=== PATIENT | male | born 1965 | race Caucasian/White ===

== ENCOUNTER 2016-06-08 00:22 | Inpatient (IN) | payer BC, MEDICARE ==
[2016-06-08] MEDS ORDERED: Aspirin Low Dose CHEW TAB* 81 MG PO ONE (02:11)
[2016-06-08 02:23] LABS: Hematocrit 41 % (42-52); Hemoglobin 12.4 g/dl (14.0-18.0); Mean Corpuscular HGB Conc 31 g/dl (31-36); Mean Corpuscular Hemoglobin 27 pg (27-31); Mean Corpuscular Volume 89 fL (80-94); Mean Platelet Volume 8 um3 (7.4-10.4); Red Blood Count 4.58 10^6/ul (4.0-5.4); Red Cell Distribution Width 18 % (10.5-15); White Blood Count 13.7 10^3/ul (3.5-10.8)
[2016-06-08 02:25] LABS: Comments Flag Yes
[2016-06-08 02:34] LABS: Albumin 3.8 g/dL (3.2-5.2); BUN/Creatinine Ratio 42.9 (8-20); Calcium 9.2 mg/dL (8.6-10.3); EGFR African American 61.6 (>60); EGFR Non-African American 47.9 (>60); Potassium 4.4 mmol/L (3.5-5.0); Total Bilirubin 0.7 mg/dL (0.2-1.0); Total Protein 6.8 g/dL (6.4-8.9)
[2016-06-08 02:41] LABS: Troponin I 0.04 ng/mL (<0.04)
[2016-06-08] MEDS ORDERED: Furosemide IV* 10 MG/ML VIAL (40 MG) IV SLOW PU ONE (03:15)
[2016-06-08] MEDS ORDERED: Piperac/Tazob 3.375 gm in NS* 3.375 GM/100 ML BAG IVPB ONE (03:15)
[2016-06-08] MEDS ORDERED: Dextrose 50% Syringe 50 ML* 25 GM/50 ML SYRINGE IV PUSH PRN (04:25)
[2016-06-08] MEDS ORDERED: Albuterol 2.5 MG/3 ML NEB.SOL* (0.083%) ONE (05:22)
[2016-06-08] MEDS: Albuterol 2.5 MG/3 ML NEB.SOL* (0.083%) INH PRN ×3 (05:25→18:17)
[2016-06-08] MEDS ORDERED: Heparin VIAL(*) 5000 UNITS/ML VIAL (FIVE THOUSAND) SUBCUT SCH (06:00)
[2016-06-08] MEDS ORDERED: Insulin ISOPH/REG 70/30 (*) 1 UNITS UNIT SUBCUT SCH (07:30)
--- NOTE | 2016-06-08 08:07 | RAD ---
HISTORY: Weakness, shortness of breath COMPARISONS: October 28, 2015 VIEWS:1: Single frontal portable view of the chest at 2:30 AM FINDINGS: LINES AND TUBES: None. CARDIOMEDIASTINAL SILHOUETTE: The cardiac silhouette is enlarged. The cardiomediastinal silhouette is otherwise normal for portable technique. PLEURA: The costophrenic angles are sharp. No pleural abnormalities are noted. LUNG PARENCHYMA: There is a diffuse reticular pattern with indistinct pulmonary vessels. ABDOMEN: The upper abdomen is clear. There is no subphrenic gas. BONES AND SOFT TISSUES: No bone or soft tissue abnormalities are noted. IMPRESSION: CARDIOMEGALY WITH PULMONARY INTERSTITIAL EDEMA
[2016-06-08] MEDS: Insulin LISPRO* 1 UNITS UNIT SUBCUT SCH ×4 (08:12→23:00)
[2016-06-08] MEDS: Mometasone/Formoter 200/5 MDI INH SCH (08:30)
[2016-06-08] MEDS: Tiotropium CAP.INH* CAP.INH/18 MCG (USE ORDER SET !) INH SCH (08:30)
[2016-06-08] MEDS: Furosemide IV* 10 MG/ML 10 ML VIAL (100 MG) IV SCH (08:32)
[2016-06-08] MEDS: Levothyroxine TAB* 100 MCG TAB PO SCH (08:32)
[2016-06-08] MEDS: Diltiazem CD CAP* 180 MG PO SCH (08:32)
[2016-06-08] MEDS: predniSONE TAB* 5 MG PO SCH (08:32)
[2016-06-08] MEDS: Metoprolol Tartrate TAB* 25 MG PO SCH ×2 (08:33→23:06)
[2016-06-08] MEDS: Allopurinol TAB* 300 MG PO SCH (08:33)
[2016-06-08] MEDS: Metolazone TAB* 5 MG PO SCH (08:33)
[2016-06-08] MEDS: Spironolactone TAB* 25 MG PO SCH (08:33)
[2016-06-08] MEDS: Fluticasone NASAL SPRAY 50MCG* 16 gm SPRAY BTL BOTH NARES SCH (08:34)
[2016-06-08] MEDS: CMC:Ketoconazole 2 % CREAM (NF) 30 GM TUBE TOPICAL SCH ×2 (08:35→22:55)
--- NOTE | 2016-06-08 08:37 | HP ---
HISTORY AND PHYSICAL: DATE OF ADMISSION: 06/08/16 CHIEF COMPLAINT: Fluid accumulation. HISTORY OF PRESENT ILLNESS: The patient is a 50-year-old gentleman who says he has noticed over the last few days he has accumulated a lot of fluid in his abdomen. He's actually gotten dizzy from it, and his legs have gotten weak. He denies any increased salt intake and he has been compliant with his medications. Surprisingly, he has no associated shortness of breath. He says he walks; he feels like a taser hits his whole body. His knees start to buckle. He does, however, get some shortness of breath when this happens. He has no chest pain, but he might have some palpitations. He is more constipated , he notes. He has no problems with his diet. In the ED, the patient was found to be what appeared to be somewhat fluid overload and an elevated troponin. PAST MEDICAL HISTORY: Significant for: 1. AFib, on Coumadin. 2. Diabetes mellitus type 2. 3. History of DVT in the right upper extremity and PE. 4. COPD, on oxygen at home. 5. Hypertension. 6. Chronic kidney disease, stage 3. 7. Hyperlipidemia. 8. Peripheral vascular disease. 9. Hypothyroidism. 10. Arthritis. 11. Obstructive sleep apnea, on CPAP. 12. Gout. PAST SURGICAL HISTORY: None. CURRENT MEDICATIONS: As follows: 1. Albuterol 2.5 mg inhaled q.4 hours as needed. 2. Ketoconazole apply twice daily as needed. 3. Insulin 70/30, 70 units subcu twice daily. 4. Insulin aspartate 5 units subcu t.i.d. 5. Furosemide 80 mg b.i.d. 6. Advair Diskus 500/50 mcg one puff twice daily. 7. Flonase nasal spray two sprays both nares daily. 8. Diltiazem CD 360 mg daily. 9. Allopurinol 600 mg daily. 10. Albuterol sulfate 2 mg inhaled q.4 hours as needed. 11. Spironolactone 50 mg daily. 12. Prednisone 5 mg daily. 13. Metolazone 5 mg daily. 14. Augmentin 875 twice daily. 15. Coumadin 50 mg daily. 16. Spiriva one capsule inhaled daily. 17. Metoprolol tartrate 25 mg twice daily. 18. Synthroid 400 mcg daily. ALLERGIES: He has an allergy/adverse reaction to TIGECYCLINE. FAMILY HISTORY: Reviewed and noncontributory. SOCIAL HISTORY: He quit cigar smoking about 15 years ago. No alcohol or recreational drug use. He is on disability. He is . He has one child. His , Lauren Anderson, is his health care proxy. 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 REVIEW OF SYSTEMS: A 14-point review of systems was completed with the patient. All pertinent positives and negatives are in the history of present illness; otherwise, it is negative. PHYSICAL EXAMINATION GENERAL: A pleasant morbidly obese gentleman, lying in bed, in no acute distress. VITAL SIGNS: Temperature 97.4, heart rate 84 beats per minute, respiratory rate 24 breaths per minute, pulse ox 96% on 3 L, and blood pressure 142/68. HEENT: Normocephalic, atraumatic. Pupils are equal, round, and reactive to light. Moist mucous membranes. NECK: Supple. No JVD, bruits, or palpable thyroid. CHEST: Clear to auscultation, but diminished breath sounds bilaterally, difficult to auscultate with his obesity. CARDIOVASCULAR: S1 and S2 appreciated. ABDOMEN: Positive bowel sounds in all 4 quadrants. Soft, nontender, and nondistended. Morbidly obese. EXTREMITIES: No cyanosis or clubbing. He has got bilateral edema with erythema throughout. He has got significant onychomycosis on his feet. NEUROLOGIC: Alert and oriented x3. Moves all extremities. SKIN: Other than the erythema, he also has an indurated area of skin around the right breast area which apparently is chronic for the last 6 years. DIAGNOSTIC DATA/LAB DATA: White count 13.7, hemoglobin 12.4, hematocrit 41, and platelets 250. Sodium 135, potassium 4.4, chloride 99, CO2 43, BUN 66, creatinine 1.54, and glucose 76. Troponin 0.04. BNP 156. Chest x-ray looks like cardiomegaly with bilateral peripheral vascular congestion. ASSESSMENT AND PLAN: 1. Fluid overload: He may have fluid in his lungs as well. I will get transthoracic echo. I will diurese him with 80 mg IV b.i.d. of Lasix. Monitor strict I's and O's and daily weights. At this point, it is unclear why he started to put on extra fluid, but hopefully this will resolve soon. 2. Elevated troponin, likely from the congestive heart failure: We will cycle troponins on telemetry. 3. Morbid obesity: I encouraged the patient to lose weight. 4. Atrial fibrillation: Continue Coumadin. Check INR. 5. Chronic obstructive pulmonary disease: Continue Spiriva, albuterol, and Advair. 6. Hypothyroidism: Stable. Continue Synthroid at significant dose. 7. Diabetes mellitus: Place on fingerstick sliding scale, continue 70/30 insulin. 8. FEN: Consistent carb diet. 9. DVT prophylaxis: He is on Coumadin. 10. Code status: The patient is a full code. TIME SPENT: Over 70 minutes were spent on this H and P, more than 45 minutes of which were spent in direct [id number] contact with the patient, evaluation , physical exam, counseling, and coordination of care. CC: Lencho Plasencia MD * [id number]/CPS #: [id number] MTDD
[2016-06-08] MEDS: Insulin ISOPH/REG 70/30 (*) 1 UNITS UNIT SUBCUT SCH ×2 (08:48→18:06)
[2016-06-08] MEDS ORDERED: Amoxicillin/Clavulanate TAB* 875 MG PO SCH (09:00)
[2016-06-08] MEDS ORDERED: Spiriva Inhaler DEVICE* 1 EACH DEVICE INH ONE (09:00)
--- NOTE | 2016-06-08 14:45 | RAD ---
Indication: Large chronic RIGHT chest/thoracic wall mass for 6 years. Comparison: July 12, 2011 CT. Technique: Noncontrast CT thorax. Multiplanar reformation. Report: Morbid obesity significantly limits image quality. Mild dependent subsegmental atelectasis. Negative for pleural effusions. Negative for thoracic lymphadenopathy. Cardiomegaly. Coronary artery calcifications. Negative for pericardial effusion. Normal diameter thoracic aorta. Limited images through the upper abdomen are unremarkable. RIGHT chest wall and axilla dermal thickening and subcutaneous edema. Subjacent moderately well-circumscribed fat density lesion measuring up to 10 cm AP by 20 cm transverse by 15 cm cephalocaudal is most consistent with a lipoma. Comparison with the contralateral side is limited due to RIGHT arm and LEFT arm down positioning. Upper normal 1 cm short axis RIGHT axillary level lymph node noted. Advanced degenerative arthropathy of the LEFT glenohumeral joint noted. Lumbar sacral spine degenerative spondylosis and facet joint osteoarthritis. No suspicious focal osseous lesions. IMPRESSION: While detail is limited due to morbid obesity the constellation of findings at the RIGHT axilla is most suspicious for a large lipoma and overlying nonspecific skin thickening and subcutaneous edema. Due to magnitude of obesity and difference in positioning comparison with the 2012 exam is limited. Correlate for potential cellulitis. Interval growth or development of pain associated with the lump would raise concern for potential malignant transformation in which case tissue sampling would be indicated to assess for malignancy.
[2016-06-08] MEDS ORDERED: Perflutren Lipid Microsphere* 1.1 MG/ML VIAL IV ONE (15:00)
--- NOTE | 2016-06-08 16:45 | PN ---
Subjective Date of Service: 06/08/16 Interval History: pt feels his breathing is better. C/o constipation Objective Active Medications: Albuterol (Ventolin 2.5 Mg/3 Ml Neb.Christy*) 2.5 mg INH Q4H PRN PRN Reason: SHORTNESS OF BREATH Last Admin: 06/08/16 11:22 Dose: 2.5 mg Allopurinol (Zyloprim Tab*) 600 mg PO DAILY [facility] Last Admin: 06/08/16 08:33 Dose: 600 mg Amoxicillin/Clavulanate Potassium (Augmentin Tab*) 875 mg PO BID [facility] Last Admin: 06/08/16 08:32 Dose: 875 mg Dextrose (D50w Syringe 50 Ml*) 12.5 gm IV PUSH .FOR FS < 60 - SS PRN PRN Reason: FS < 60 Diltiazem HCl (Cardizem Cd Cap*) 360 mg PO DAILY [facility] Last Admin: 06/08/16 08:32 Dose: 360 mg Fluticasone Propionate (Flonase Nasal [place] 50mcg*) 2 spray BOTH NARES DAILY [facility] Last Admin: 06/08/16 08:34 Dose: Not Given Furosemide (Lasix Iv*) 80 mg IV BID [facility] Last Admin: 06/08/16 08:32 Dose: 80 mg Insulin Human Isoph/Insulin Regular (Humulin 70/30 (*)) 50 units SUBCUT BID AC [facility] Last Admin: 06/08/16 08:48 Dose: 50 units Insulin Human Lispro (Humalog*) 0 units SUBCUT ACHS [facility] PRN Reason: Protocol Last Admin: 06/08/16 12:05 Dose: 3 units Ketoconazole (Nizoral 2% Cream (Nf)) 1 applic TOPICAL BID [facility] PRN Reason: Protocol Last Admin: 06/08/16 08:35 Dose: Not Given Levothyroxine Sodium (Synthroid Tab*) 400 mcg PO DAILY@0600 [facility] Last Admin: 06/08/16 08:32 Dose: 400 mcg Metolazone (Zaroxolyn Tab*) 5 mg PO DAILY [facility] Last Admin: 06/08/16 08:33 Dose: 5 mg Metoprolol Tartrate (Lopressor Tab*) 25 mg PO BID [facility] Last Admin: 06/08/16 08:33 Dose: 25 mg Mometasone Furoate/Formoterol Fumar (Dulera 200/5 Mdi*) 2 puff INH BID [facility] Last Admin: 06/08/16 08:30 Dose: Not Given Prednisone (Deltasone Tab*) 5 mg PO DAILY [facility] Last Admin: 06/08/16 08:32 Dose: 5 mg Spironolactone (Aldactone Tab*) 50 mg PO DAILY [facility] Last Admin: 06/08/16 08:33 Dose: 50 mg Tiotropium [place] (Spiriva Cap.Inh*) 1 cap INH DAILY [facility] Last Admin: 06/08/16 08:30 Dose: Not Given Warfarin Sodium (Coumadin Tab(*)) 15 mg PO Ankit@1700 [facility] PRN Reason: Protocol Vital Signs 06/08/16 06/08/16 06/08/16 05:26 06:38 08:01 Temperature 98.1 F 98.5 F Pulse Rate 86 92 94 Respiratory 20 20 16 Rate Blood Pressure 186/71 152/52 (mmHg) O2 Sat by Pulse 98 94 91 Oximetry 06/08/16 06/08/16 06/08/16 08:41 11:28 11:42 Temperature 99.1 F Pulse Rate 74 86 85 Respiratory 18 22 20 Rate Blood Pressure 138/92 (mmHg) O2 Sat by Pulse 95 92 94 Oximetry 06/08/16 06/08/16 12:21 15:00 Temperature 98.6 F Pulse Rate 83 Respiratory 16 16 Rate Blood Pressure 130/58 (mmHg) O2 Sat by Pulse 90 Oximetry Oxygen Devices in Use Now: Nasal Cannula - at 4 L Appearance: 50 yo M , morbitly obese Eyes: No Scleral Icterus, PERRLA Ears/Nose/Mouth/Throat: NL Teeth, Lips, Gums Neck: NL Appearance and Movements; NL JVP Respiratory: Symmetrical Chest Expansion and Respiratory Effort, - - large soft R chest wall mass, the size of a soccer ball Cardiovascular: NL Sounds; No Murmurs; No JVD, RRR Abdominal: NL Sounds; No Tenderness; No Distention, - - large, obese Lymphatic: No Cervical Adenopathy Extremities: No Clubbing, Cyanosis, - - chronic venous staisis changes b/l, b/l pedal edema +1 Skin: No Nodules or Sclerosis Neurological: Alert and Oriented x 3, NL Muscle Strength and Tone Result Diagrams: 06/08/16 01:06 06/08/16 01:06 Assess/Plan/Problems-Billing Assessment: 50 yo M with h/o morbid obesity, DVT/PE, COPD on 4-5 L 02 at home presents with weight gain and worsening SOB. - Patient Problems (1) Acute on chronic diastolic (congestive) heart failure Comment: cont Lasix IV and PO Zaroxolyn and Aldactone Daily weights (2) Atrial fibrillation Comment: currently in NSR will d/c telem. 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 Pt stated he has had it x 6 years (5) Cardiomyopathy Comment: LVEF 45-50% on 10/24/15. (6) Sleep apnea Comment: Pt to use his own CPAP machine. (7) Elevated troponin I level Comment: chronically elevated. No need for further work-up at this time. (8) DVT prophylaxis Comment: Coumadin (9) Hypercarbia Code(s): R06.89 - OTHER ABNORMALITIES OF BREATHING Comment: chonic elevation of serum bicarb, suspect chronic C02 retention, consistent with prior (10) COPD (chronic obstructive pulmonary disease) Comment: On 4-5 L 02 at home,not in exacerbation (11) DVT of right axillary vein, chronic Comment: and h/o remote PE cont coumadin, INR therapeutic Status and Disposition: inpatient for CHF, cont IV diuresis
[2016-06-08] MEDS: Warfarin TAB(*) 7.5 MG PO SCH (18:05)
[2016-06-08] MEDS: Acetaminophen TAB* 325 MG PO PRN (23:01)
[2016-06-09] MEDS: Furosemide IV* 10 MG/ML 10 ML VIAL (100 MG) IV SCH ×4 (00:21→22:55)
[2016-06-09] MEDS: Mometasone/Formoter 200/5 MDI INH SCH ×3 (01:06→19:39)
[2016-06-09] MEDS: Acetaminophen TAB* 325 MG PO PRN ×2 (05:54→10:30)
[2016-06-09] MEDS: Levothyroxine TAB* 100 MCG TAB PO SCH (05:54)
[2016-06-09 07:00] LABS: Hematocrit 38 % (42-52); Hemoglobin 11.8 g/dl (14.0-18.0); Mean Corpuscular HGB Conc 31 g/dl (31-36); Mean Corpuscular Hemoglobin 27 pg (27-31); Mean Corpuscular Volume 89 fL (80-94); Mean Platelet Volume 8 um3 (7.4-10.4); Red Blood Count 4.32 10^6/ul (4.0-5.4); Red Cell Distribution Width 18 % (10.5-15); White Blood Count 11.5 10^3/ul (3.5-10.8)
--- NOTE | 2016-06-09 09:32 | ECHO ---
Patient: DAVE LUQUE [facility] Rec#: [id number] : 1965 Date: 06/08/2016 Age: 50y Height: 182 cm / 71.7 in Weight: 217 kg / 478.3 lbs Sex: M BSA: 3.08 Room#: [facility] Admit Date#: 06/08/2016 Type: Inpatient Referring: Elijah Agrawal MD Reading: Stewart Mathias MD Manager Animation: Patrick Osborn RDCS Transthoracic Echocardiogram Indication: CHF BP: 186/71 Rhythm: A-Fib Findings History: MORBID,OBESITY, DM,HTN,chronic A.FIB. Technical Comments: The study is technically difficult. 5cc Definity echocardiographic enhancement agent used for endocardial border definition.. The study is technically limited due to poor apical windows. The study is technically limited due to patient body habitus. The study is technically limited due to the patient's history of COPD. The study is technically limited due to the patient's smoking history. The study was technically limited due to the patient's inability to lay in the left lateral decubitus position. Left Ventricle: The left ventricular chamber size is mildly dilated. Mild to moderate concentric left ventricular hypertrophy is observed. Left ventricular systolic function is at the lower limits of normal. The estimated ejection fraction is 50-55%. Visually estimated LVEF is 50 %, except on longer R toR intervals when enhanced contractility is seen. The assessment of diastolic function is non-diagnostic. Left Atrium: The left atrial chamber size is normal. Right Ventricle: The right ventricular cavity size is normal. The right ventricular global systolic function is normal. Right Atrium: The right atrium is mildly dilated. Aortic Valve: The aortic valve is trileaflet. There is no evidence of aortic regurgitation. There is no evidence of aortic stenosis. Mitral Valve: There is posterior mitral annular calcification. The mitral valve leaflets are mildly thickened. There is no evidence of mitral regurgitation. There is no evidence of mitral stenosis. Tricuspid Valve: The tricuspid valve structure is not well visualized. There is trace to mild tricuspid regurgitation. Pulmonic Valve: The pulmonic valve structure is not well visualized. Pericardium: There is no pericardial effusion. Aorta: There is mild dilatation of the ascending aorta. The aortic arch is not well visualized. There is no dilation of the aortic root. Pulmonary Artery: The main pulmonary artery is not well visualized. Venous: The venous system is not well visualized. The inferior vena cava is not visualized. Contrast: Definity was used to optimize study. Image 61 Conclusions The study is technically limited due to poor apical windows. The study is technically limited due to patient body habitus. The study is technically limited due to the patient's history of COPD. The study is technically limited due to the patient's smoking history. The study was technically limited due to the patient's inability to lay in the left lateral decubitus position. Mild to moderate concentric left ventricular hypertrophy is observed. Left ventricular systolic function is at the lower limits of normal (enhanced analysis with definity contrast) The estimated ejection fraction is 50-55%. Visually estimated LVEF is 50 %, except on longer R toR intervals when enhanced contractility is seen. There is posterior mitral annular calcification. The mitral valve leaflets are mildly thickened. No significant valvular pathology as can be best imaged. If more definitive valvular assessment is needed suggest YESENIA. Measurements Name Value Normal Range RVIDd (AP) 2D 2.6 cm (0.9 - 2.6) RVDdMajor (2D) 3.4 cm (2.2 - 4.4) RAd ISD 4CH 6.7 cm (3.4 - 4.9) RA (A4C)W 3.6 cm (2.9 - 4.6) IVSd (2D) 1.6 cm (0.6 - 1) LVPWd (2D) 1.2 cm (0.6 - 1) LVIDd (2D) 6.3 cm (3.6 - 5.4) LVIDs (2D) 4.5 cm - LV FS (2D) 29 % (25 - 45) Aortic Annulus 2.1 cm (1.4 - 2.6) Ao root diameter (2D) 3 cm (2.1 - 3.5) Ascending Ao 4.1 cm (2.1 - 3.4) LA dimension (AP) 2D 4.1 cm (2.3 - 3.8) LAd ISD 4CH 6.5 cm (2.9 - 5.3) LA ISD 4CH W 3.6 cm (2.5 - 4.5) Name Value Normal Range LA ESV SP 4CH (A/L) 60 ml - LA ESV SP 2CH (A/L) 48 ml - LA ESV BP (A/L) 61 ml - LA ESV BP (A/L) index 19.78 ml/m2 - LA ESV SP 4CH (MOD) 53 ml - LA ESV SP 2CH (MOD) 41 ml - Name Value Normal Range MV E-wave Vmax 0.96 m/sec - MV deceleration time 119 msec - MV A-wave Vmax 0.96 m/sec - MV E:A ratio 1.01 ratio - LV septal e' Vmax 0.05 m/sec - LV lateral e' Vmax 0.07 m/sec - Name Value Normal Range LVOT diameter 2.2 cm - LVOT Vmax 1.3 m/sec - Name Value Normal Range PV Vmax 1.1 m/sec -
[2016-06-09] MEDS: Spironolactone TAB* 25 MG PO SCH (09:35)
[2016-06-09] MEDS: Metoprolol Tartrate TAB* 25 MG PO SCH ×2 (09:36→21:21)
[2016-06-09] MEDS: Allopurinol TAB* 300 MG PO SCH (09:36)
[2016-06-09] MEDS: Diltiazem CD CAP* 180 MG PO SCH (09:36)
[2016-06-09] MEDS: predniSONE TAB* 5 MG PO SCH (09:36)
[2016-06-09] MEDS: Fluticasone NASAL SPRAY 50MCG* 16 gm SPRAY BTL BOTH NARES SCH (09:39)
[2016-06-09] MEDS: CMC:Ketoconazole 2 % CREAM (NF) 30 GM TUBE TOPICAL SCH ×2 (09:39→21:01)
[2016-06-09] MEDS: Metolazone TAB* 5 MG PO SCH (09:43)
[2016-06-09] MEDS: Insulin ISOPH/REG 70/30 (*) 1 UNITS UNIT SUBCUT SCH ×2 (09:58→17:00)
[2016-06-09] MEDS: Insulin LISPRO* 1 UNITS UNIT SUBCUT SCH ×4 (12:54→22:52)
[2016-06-09] MEDS: Tiotropium CAP.INH* CAP.INH/18 MCG (USE ORDER SET !) INH SCH (12:54)
--- NOTE | 2016-06-09 12:59 | PN ---
Subjective Date of Service: 06/09/16 Interval History: The [facility] pt reported this admission was incorrect. Pt had his weight checked today the first time since admission and was noted to be 520 lbs. He was 486 lbs in 10/2015 Feels a little better today. Will try to stand up with PT. Wyatt placed at admission , pt requests to cont it since he is unable to urinate lying down. Objective Active Medications: Acetaminophen (Tylenol Tab*) 650 mg PO Q4H PRN PRN Reason: FEVER/PAIN Last Admin: 06/09/16 10:30 Dose: 650 mg Albuterol (Ventolin 2.5 Mg/3 Ml Neb.Christy*) 2.5 mg INH Q4H PRN PRN Reason: SHORTNESS OF BREATH Last Admin: 06/08/16 18:17 Dose: 2.5 mg Allopurinol (Zyloprim Tab*) 600 mg PO DAILY [facility] Last Admin: 06/09/16 09:36 Dose: 600 mg Dextrose (D50w Syringe 50 Ml*) 12.5 gm IV PUSH .FOR FS < 60 - SS PRN PRN Reason: FS < 60 Diltiazem HCl (Cardizem Cd Cap*) 360 mg PO DAILY [facility] Last Admin: 06/09/16 09:36 Dose: 360 mg Fluticasone Propionate (Flonase Nasal [place] 50mcg*) 2 spray BOTH NARES DAILY [facility] Last Admin: 06/09/16 09:39 Dose: Not Given Furosemide (Lasix Iv*) 80 mg IV BID [facility] Last Admin: 06/09/16 09:34 Dose: 80 mg Insulin Human Isoph/Insulin Regular (Humulin 70/30 (*)) 50 units SUBCUT BID AC [facility] Last Admin: 06/09/16 09:58 Dose: 50 units Insulin Human Lispro (Humalog*) 0 units SUBCUT ACHS [facility] PRN Reason: Protocol Last Admin: 06/09/16 12:54 Dose: Not Given Ketoconazole (Nizoral 2% Cream (Nf)) 1 applic TOPICAL BID [facility] PRN Reason: Protocol Last Admin: 06/09/16 09:39 Dose: Not Given Levothyroxine Sodium (Synthroid Tab*) 400 mcg PO DAILY@0600 [facility] Last Admin: 06/09/16 05:54 Dose: 400 mcg Metolazone (Zaroxolyn Tab*) 5 mg PO DAILY [facility] Last Admin: 06/09/16 09:43 Dose: 5 mg Metoprolol Tartrate (Lopressor Tab*) 25 mg PO BID [facility] Last Admin: 06/09/16 09:36 Dose: 25 mg Mometasone Furoate/Formoterol Fumar (Dulera 200/5 Mdi*) 2 puff INH BID [facility] Last Admin: 06/09/16 09:37 Dose: 2 puff Prednisone (Deltasone Tab*) 5 mg PO DAILY [facility] Last Admin: 06/09/16 09:36 Dose: 5 mg Spironolactone (Aldactone Tab*) 50 mg PO DAILY [facility] Last Admin: 06/09/16 09:35 Dose: 50 mg Tiotropium [place] (Spiriva Cap.Inh*) 1 cap INH DAILY [facility] Last Admin: 06/09/16 12:54 Dose: Not Given Warfarin Sodium (Coumadin Tab(*)) 15 mg PO SuMoTuThSa@1700 [facility] PRN Reason: Protocol Last Admin: 06/08/16 18:05 Dose: 15 mg Vital Signs 06/08/16 06/08/16 06/08/16 15:00 17:20 17:50 Temperature 98.6 F 98.2 F Pulse Rate 83 85 Respiratory 16 18 20 Rate Blood Pressure 130/58 129/49 (mmHg) O2 Sat by Pulse 90 98 Oximetry 06/08/16 06/08/16 06/08/16 18:19 19:38 20:15 Temperature Pulse Rate 52 86 Respiratory 20 24 18 Rate Blood Pressure 173/73 (mmHg) O2 Sat by Pulse 96 95 Oximetry 06/08/16 06/08/16 06/08/16 20:17 20:24 23:01 Temperature 98.3 F Pulse Rate 86 85 Respiratory 18 Rate Blood Pressure 144/42 171/54 (mmHg) O2 Sat by Pulse 97 98 Oximetry 06/09/16 06/09/16 06/09/16 01:08 03:14 05:58 Temperature 98.0 F Pulse Rate 72 47 64 Respiratory 20 20 Rate Blood Pressure 141/43 (mmHg) O2 Sat by Pulse 98 95 Oximetry 06/09/16 06/09/16 07:17 11:36 Temperature 97.6 F 98.3 F Pulse Rate 75 77 Respiratory 18 18 Rate Blood Pressure 125/48 154/46 (mmHg) O2 Sat by Pulse 95 95 Oximetry Oxygen Devices in Use Now: Nasal Cannula - at 5 L Appearance: 50 yo morbitly obese M in NAD, aAOx3 Eyes: No Scleral Icterus, PERRLA Ears/Nose/Mouth/Throat: NL Teeth, Lips, Gums, Mucous Membranes Moist Neck: NL Appearance and Movements; NL JVP, Trachea Midline Respiratory: Symmetrical Chest Expansion and Respiratory Effort, Clear to Palpation, - - large R chest wall mass-chronic lipoma Cardiovascular: NL Sounds; No Murmurs; No JVD, RRR Abdominal: NL Sounds; No Tenderness; No Distention, - - umbilical hernia at 10 cm in diam, nontender Lymphatic: No Cervical Adenopathy Extremities: No Clubbing, Cyanosis, - - +1 pedal edema Skin: No Nodules or Sclerosis, - - venous stasis changes distal b/l LE's Neurological: Alert and Oriented x 3, NL Muscle Strength and Tone Result Diagrams: 06/09/16 06:52 06/08/16 01:06 Microbiology and Other Data: Microbiology 06/08/16 16:40 Nasal Screen MRSA (PCR)(JEAN CARLOS) - Final Nasal Mrsa Positive Assess/Plan/Problems-Billing Assessment: 50 yo M with h/o morbid obesity, DVT/PE, COPD on 4-5 L 02 at home presents with weight gain and worsening SOB. 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 (6) Sleep apnea Comment: Pt to use his own CPAP machine. (7) Elevated troponin I level Comment: chronically elevated. No need for further work-up at this time. (8) DVT prophylaxis Comment: Coumadin (9) Hypercarbia Comment: chonic elevation of serum bicarb, suspect chronic C02 retention, consistent with prior (10) COPD (chronic obstructive pulmonary disease) Comment: On 4-5 L 02 at home,not in exacerbation (11) DVT of right axillary vein, chronic Comment: and h/o remote PE cont coumadin, INR therapeutic Status and Disposition: inpatient for CHF, cont IV diuresis
[2016-06-09] MEDS: oxyCODONE/Acetamin 5/325 MG* TAB PO PRN (16:40)
[2016-06-09 17:25] LABS: Calcium 9.2 mg/dL (8.6-10.3); EGFR African American 63.9 (>60); EGFR Non-African American 49.7 (>60)
[2016-06-09] MEDS: Warfarin TAB(*) 7.5 MG PO SCH (17:26)
[2016-06-09 17:29] LABS: Potassium 4.7 mmol/L (3.5-5.0)
[2016-06-09] MEDS: Albuterol 2.5 MG/3 ML NEB.SOL* (0.083%) INH PRN (19:36)
[2016-06-10] MEDS: Acetaminophen TAB* 325 MG PO PRN ×2 (00:09→20:13)
[2016-06-10] MEDS: Albuterol 2.5 MG/3 ML NEB.SOL* (0.083%) INH PRN ×4 (01:31→20:27)
[2016-06-10] MEDS: Levothyroxine TAB* 100 MCG TAB PO SCH (05:54)
[2016-06-10 06:19] LABS: BUN/Creatinine Ratio 40.2 (8-20); Calcium 9.1 mg/dL (8.6-10.3); EGFR African American 57.2 (>60); EGFR Non-African American 44.5 (>60); Magnesium 1.9 mg/dL (1.9-2.7); Potassium 3.9 mmol/L (3.5-5.0)
[2016-06-10] MEDS: Insulin ISOPH/REG 70/30 (*) 1 UNITS UNIT SUBCUT SCH ×2 (08:11→17:22)
[2016-06-10] MEDS: Insulin LISPRO* 1 UNITS UNIT SUBCUT SCH ×4 (08:11→21:24)
[2016-06-10] MEDS: Allopurinol TAB* 300 MG PO SCH (08:12)
[2016-06-10] MEDS: Diltiazem CD CAP* 180 MG PO SCH (08:12)
[2016-06-10] MEDS: Furosemide IV* 10 MG/ML 10 ML VIAL (100 MG) IV SCH ×2 (08:12→20:14)
[2016-06-10] MEDS: predniSONE TAB* 5 MG PO SCH (08:12)
[2016-06-10] MEDS: oxyCODONE/Acetamin 5/325 MG* TAB PO PRN (08:13)
[2016-06-10] MEDS: Spironolactone TAB* 25 MG PO SCH (08:13)
[2016-06-10] MEDS: Metolazone TAB* 5 MG PO SCH (08:13)
[2016-06-10] MEDS: Metoprolol Tartrate TAB* 25 MG PO SCH ×2 (08:13→21:24)
[2016-06-10] MEDS: CMC:Ketoconazole 2 % CREAM (NF) 30 GM TUBE TOPICAL SCH ×2 (08:14→21:26)
[2016-06-10] MEDS: Mometasone/Formoter 200/5 MDI INH SCH ×2 (10:23→20:28)
[2016-06-10] MEDS: Tiotropium CAP.INH* CAP.INH/18 MCG (USE ORDER SET !) INH SCH (10:23)
[2016-06-10] MEDS: Fluticasone NASAL SPRAY 50MCG* 16 gm SPRAY BTL BOTH NARES SCH (12:46)
--- NOTE | 2016-06-10 12:56 | PN ---
Subjective Date of Service: 06/10/16 Interval History: Pt feels stronger daily, but still mobility very limited. Objective Active Medications: Acetaminophen (Tylenol Tab*) 650 mg PO Q4H PRN PRN Reason: FEVER/PAIN Last Admin: 06/10/16 00:09 Dose: 650 mg Albuterol (Ventolin 2.5 Mg/3 Ml Neb.Christy*) 2.5 mg INH Q4H PRN PRN Reason: SHORTNESS OF BREATH Last Admin: 06/10/16 10:22 Dose: 2.5 mg Allopurinol (Zyloprim Tab*) 600 mg PO DAILY [facility] Last Admin: 06/10/16 08:12 Dose: 600 mg Dextrose (D50w Syringe 50 Ml*) 12.5 gm IV PUSH .FOR FS < 60 - SS PRN PRN Reason: FS < 60 Diltiazem HCl (Cardizem Cd Cap*) 360 mg PO DAILY [facility] Last Admin: 06/10/16 08:12 Dose: 360 mg Fluticasone Propionate (Flonase Nasal [place] 50mcg*) 2 spray BOTH NARES DAILY [facility] Last Admin: 06/10/16 12:46 Dose: 2 spray Furosemide (Lasix Iv*) 100 mg IV BID [facility] Last Admin: 06/10/16 08:12 Dose: 100 mg Insulin Human Isoph/Insulin Regular (Humulin 70/30 (*)) 50 units SUBCUT BID AC [facility] Last Admin: 06/10/16 08:11 Dose: 50 units Insulin Human Lispro (Humalog*) 0 units SUBCUT ACHS [facility] PRN Reason: Protocol Last Admin: 06/10/16 12:47 Dose: 3 units Ketoconazole (Nizoral 2% Cream (Nf)) 1 applic TOPICAL BID [facility] PRN Reason: Protocol Last Admin: 06/10/16 08:14 Dose: Not Given Levothyroxine Sodium (Synthroid Tab*) 400 mcg PO DAILY@0600 [facility] Last Admin: 06/10/16 05:54 Dose: 400 mcg Metolazone (Zaroxolyn Tab*) 5 mg PO DAILY [facility] Last Admin: 06/10/16 08:13 Dose: 5 mg Metoprolol Tartrate (Lopressor Tab*) 25 mg PO BID [facility] Last Admin: 06/10/16 08:13 Dose: 25 mg Mometasone Furoate/Formoterol Fumar (Dulera 200/5 Mdi*) 2 puff INH BID [facility] Last Admin: 06/10/16 10:23 Dose: 2 puff Prednisone (Deltasone Tab*) 5 mg PO DAILY [facility] Last Admin: 06/10/16 08:12 Dose: 5 mg Spironolactone (Aldactone Tab*) 50 mg PO DAILY [facility] Last Admin: 06/10/16 08:13 Dose: 50 mg Tiotropium [place] (Spiriva Cap.Inh*) 1 cap INH DAILY [facility] Last Admin: 06/10/16 10:23 Dose: 1 cap Warfarin Sodium (Coumadin Tab(*)) 15 mg PO Ankit@1700 [facility] PRN Reason: Protocol Last Admin: 06/09/16 17:26 Dose: 15 mg Vital Signs 06/09/16 06/09/16 06/09/16 15:49 16:40 18:54 Temperature 98.2 F 98.3 F Pulse Rate 71 68 Respiratory 20 16 16 Rate Blood Pressure 152/42 127/83 (mmHg) O2 Sat by Pulse 93 94 Oximetry 06/09/16 06/09/16 06/09/16 19:40 20:20 20:22 Temperature 98.3 F Pulse Rate 74 79 Respiratory 20 20 20 Rate Blood Pressure 155/71 (mmHg) O2 Sat by Pulse 96 96 Oximetry 06/09/16 06/09/16 06/09/16 21:08 22:15 23:00 Temperature 98.4 F 98.7 F Pulse Rate 41 72 Respiratory 20 20 16 Rate Blood Pressure 153/83 151/50 (mmHg) O2 Sat by Pulse 95 93 Oximetry 06/10/16 06/10/16 06/10/16 00:52 07:59 08:13 Temperature Pulse Rate 61 Respiratory 20 18 20 Rate Blood Pressure (mmHg) O2 Sat by Pulse 91 Oximetry 06/10/16 06/10/16 10:13 10:24 Temperature Pulse Rate 64 Respiratory 18 18 Rate Blood Pressure (mmHg) O2 Sat by Pulse 95 Oximetry Oxygen Devices in Use Now: Nasal Cannula - at 5 L Appearance: 50 yo morbitly obese M in nAd, aAOx3 Eyes: No Scleral Icterus, PERRLA Ears/Nose/Mouth/Throat: NL Teeth, Lips, Gums, Mucous Membranes Moist Neck: NL Appearance and Movements; NL JVP, Trachea Midline Respiratory: Symmetrical Chest Expansion and Respiratory Effort, Clear to Auscultation, - - large R chest lipoma in place Cardiovascular: NL Sounds; No Murmurs; No JVD, RRR Abdominal: NL Sounds; No Tenderness; No Distention, - - large, umbilical hernia present-nontender Lymphatic: No Cervical Adenopathy Extremities: No Clubbing, Cyanosis, - - + 1 pitting edema with venous staisis changes Skin: No Nodules or Sclerosis, - - scattered psoriasis plaques Neurological: Alert and Oriented x 3, NL Muscle Strength and Tone Result Diagrams: 06/09/16 06:52 06/10/16 05:04 Microbiology and Other Data: Microbiology 06/08/16 16:40 Nasal Screen MRSA (PCR)(JEAN CARLOS) - Final Nasal Mrsa Positive Assess/Plan/Problems-Billing Assessment: 50 yo M with h/o morbid obesity, DVT/PE, COPD on 4-5 L 02 at home presents with weight gain and worsening SOB. 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 (6) Sleep apnea Comment: Pt to use his own CPAP machine. (7) Elevated troponin I level Comment: chronically elevated. No need for further work-up at this time. (8) DVT prophylaxis Comment: Coumadin (9) Hypercarbia Comment: chonic elevation of serum bicarb, suspect chronic C02 retention, consistent with prior (10) COPD (chronic obstructive pulmonary disease) Comment: On 4-5 L 02 at home,not in exacerbation (11) DVT of right axillary vein, chronic Comment: and h/o remote PE cont coumadin, INR therapeutic Status and Disposition: inpatient for CHF, cont IV diuresis, possible d./c in 1-2 days
[2016-06-10] MEDS: Warfarin TAB(*) 7.5 MG PO SCH (17:20)
[2016-06-11] MEDS: Albuterol 2.5 MG/3 ML NEB.SOL* (0.083%) INH PRN ×4 (02:27→21:24)
[2016-06-11] MEDS: Levothyroxine TAB* 100 MCG TAB PO SCH (05:39)
[2016-06-11 06:15] LABS: BUN/Creatinine Ratio 42.2 (8-20); Calcium 9.1 mg/dL (8.6-10.3); EGFR African American 53.8 (>60); EGFR Non-African American 41.9 (>60); Potassium 3.9 mmol/L (3.5-5.0)
[2016-06-11] MEDS: Insulin ISOPH/REG 70/30 (*) 1 UNITS UNIT SUBCUT SCH ×2 (08:06→17:27)
[2016-06-11] MEDS: Insulin LISPRO* 1 UNITS UNIT SUBCUT SCH ×4 (08:06→22:10)
[2016-06-11] MEDS: Furosemide IV* 10 MG/ML 10 ML VIAL (100 MG) IV SCH ×2 (08:06→22:10)
[2016-06-11] MEDS: CMC:Ketoconazole 2 % CREAM (NF) 30 GM TUBE TOPICAL SCH ×2 (08:06→22:11)
[2016-06-11] MEDS: Allopurinol TAB* 300 MG PO SCH (08:07)
[2016-06-11] MEDS: Acetaminophen TAB* 325 MG PO PRN (08:07)
[2016-06-11] MEDS: Fluticasone NASAL SPRAY 50MCG* 16 gm SPRAY BTL BOTH NARES SCH (08:07)
[2016-06-11] MEDS: Spironolactone TAB* 25 MG PO SCH (08:08)
[2016-06-11] MEDS: predniSONE TAB* 5 MG PO SCH (08:08)
[2016-06-11] MEDS: Metoprolol Tartrate TAB* 25 MG PO SCH ×2 (08:08→22:09)
[2016-06-11] MEDS: Diltiazem CD CAP* 180 MG PO SCH (08:09)
[2016-06-11] MEDS: Metolazone TAB* 5 MG PO SCH (08:09)
[2016-06-11] MEDS: Mometasone/Formoter 200/5 MDI INH SCH ×2 (10:09→21:16)
[2016-06-11] MEDS: Tiotropium CAP.INH* CAP.INH/18 MCG (USE ORDER SET !) INH SCH (10:09)
--- NOTE | 2016-06-11 12:07 | PN ---
Subjective Date of Service: 06/11/16 Interval History: Pt feels well , feels his abdomen is getting "smaller". Objective Active Medications: Acetaminophen (Tylenol Tab*) 650 mg PO Q4H PRN PRN Reason: FEVER/PAIN Last Admin: 06/11/16 08:07 Dose: 650 mg Albuterol (Ventolin 2.5 Mg/3 Ml Neb.Christy*) 2.5 mg INH Q4H PRN PRN Reason: SHORTNESS OF BREATH Last Admin: 06/11/16 02:27 Dose: 2.5 mg Allopurinol (Zyloprim Tab*) 600 mg PO DAILY [facility] Last Admin: 06/11/16 08:07 Dose: 600 mg Dextrose (D50w Syringe 50 Ml*) 12.5 gm IV PUSH .FOR FS < 60 - SS PRN PRN Reason: FS < 60 Diltiazem HCl (Cardizem Cd Cap*) 360 mg PO DAILY [facility] Last Admin: 06/11/16 08:09 Dose: 360 mg Fluticasone Propionate (Flonase Nasal [place] 50mcg*) 2 spray BOTH NARES DAILY [facility] Last Admin: 06/11/16 08:07 Dose: 2 spray Furosemide (Lasix Iv*) 100 mg IV BID [facility] Last Admin: 06/11/16 08:06 Dose: 100 mg Insulin Human Isoph/Insulin Regular (Humulin 70/30 (*)) 50 units SUBCUT BID AC [facility] Last Admin: 06/11/16 08:06 Dose: 50 units Insulin Human Lispro (Humalog*) 0 units SUBCUT ACHS [facility] PRN Reason: Protocol Last Admin: 06/11/16 08:06 Dose: 3 units Ketoconazole (Nizoral 2% Cream (Nf)) 1 applic TOPICAL BID [facility] PRN Reason: Protocol Last Admin: 06/11/16 08:06 Dose: 1 applic Levothyroxine Sodium (Synthroid Tab*) 400 mcg PO DAILY@0600 [facility] Last Admin: 06/11/16 05:39 Dose: 400 mcg Metolazone (Zaroxolyn Tab*) 5 mg PO DAILY [facility] Last Admin: 06/11/16 08:09 Dose: 5 mg Metoprolol Tartrate (Lopressor Tab*) 25 mg PO BID [facility] Last Admin: 06/11/16 08:08 Dose: 25 mg Mometasone Furoate/Formoterol Fumar (Dulera 200/5 Mdi*) 2 puff INH BID [facility] Last Admin: 06/11/16 10:09 Dose: Not Given Prednisone (Deltasone Tab*) 5 mg PO DAILY [facility] Last Admin: 06/11/16 08:08 Dose: 5 mg Spironolactone (Aldactone Tab*) 50 mg PO DAILY [facility] Last Admin: 06/11/16 08:08 Dose: 50 mg Tiotropium [place] (Spiriva Cap.Inh*) 1 cap INH DAILY [facility] Last Admin: 06/11/16 10:09 Dose: Not Given Warfarin Sodium (Coumadin Tab(*)) 15 mg PO Ankit@1700 [facility] PRN Reason: Protocol Last Admin: 06/10/16 17:20 Dose: 15 mg Vital Signs 06/10/16 06/10/16 06/10/16 14:44 16:15 20:00 Temperature 98.2 F Pulse Rate 62 105 Respiratory 20 20 18 Rate Blood Pressure 102/87 (mmHg) O2 Sat by Pulse 91 95 Oximetry 06/10/16 06/10/16 06/10/16 20:31 20:33 23:00 Temperature 98 F Pulse Rate 75 73 62 Respiratory 22 16 Rate Blood Pressure 154/62 152/45 (mmHg) O2 Sat by Pulse 95 96 Oximetry 06/11/16 06/11/16 06/11/16 02:28 07:59 08:00 Temperature 97.8 F Pulse Rate 62 72 Respiratory 22 16 16 Rate Blood Pressure 174/82 (mmHg) O2 Sat by Pulse 96 96 Oximetry Oxygen Devices in Use Now: Nasal Cannula - at 5 L Appearance: 50 morbitly obese M in NAD, aAOx3 Eyes: No Scleral Icterus, PERRLA Ears/Nose/Mouth/Throat: NL Teeth, Lips, Gums, Mucous Membranes Moist Neck: NL Appearance and Movements; NL JVP Respiratory: Symmetrical Chest Expansion and Respiratory Effort, Clear to Auscultation, - - R chest lipoma-large nontender Cardiovascular: NL Sounds; No Murmurs; No JVD, RRR Abdominal: NL Sounds; No Tenderness; No Distention, - - small nontender umbilical hernia Lymphatic: No Cervical Adenopathy Extremities: No Clubbing, Cyanosis, - - +1 b/l pedeam edema Skin: - - scattered psoriasis plaques on abd. Venous stasis changes on b/l distal LE's Neurological: Alert and Oriented x 3, NL Muscle Strength and Tone Result Diagrams: 06/09/16 06:52 06/11/16 05:42 Microbiology and Other Data: Microbiology 06/08/16 16:40 Nasal Screen MRSA (PCR)(JEAN CARLOS) - Final Nasal Mrsa Positive Assess/Plan/Problems-Billing Assessment: 50 yo M with h/o morbid obesity, DVT/PE, COPD on 4-5 L 02 at home presents with weight gain and worsening SOB. 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 (6) Sleep apnea Comment: Pt to use his own CPAP machine. (7) Elevated troponin I level Comment: chronically elevated. No need for further work-up at this time. (8) DVT prophylaxis Comment: Coumadin (9) Hypercarbia Comment: chonic elevation of serum bicarb, suspect chronic C02 retention, consistent with prior (10) COPD (chronic obstructive pulmonary disease) Comment: On 4-5 L 02 at home,not in exacerbation (11) DVT of right axillary vein, chronic Comment: and h/o remote PE cont coumadin, INR therapeutic Status and Disposition: inpatient for CHF, cont IV diuresis, possible d/c tomorrow. Pt has a santos in place and requests to leave it in till he is more mobile. May need STR, agrees to [facility].
[2016-06-11] MEDS: Warfarin TAB(*) 7.5 MG PO SCH (17:42)
[2016-06-12] MEDS: Albuterol 2.5 MG/3 ML NEB.SOL* (0.083%) INH PRN ×4 (03:05→21:09)
[2016-06-12] MEDS: Levothyroxine TAB* 100 MCG TAB PO SCH (06:12)
[2016-06-12] MEDS: Insulin LISPRO* 1 UNITS UNIT SUBCUT SCH ×4 (08:58→21:09)
[2016-06-12] MEDS: Furosemide IV* 10 MG/ML 10 ML VIAL (100 MG) IV SCH ×2 (09:15→21:09)
[2016-06-12] MEDS: Diltiazem CD CAP* 180 MG PO SCH (09:15)
[2016-06-12] MEDS: Allopurinol TAB* 300 MG PO SCH (09:15)
[2016-06-12] MEDS: predniSONE TAB* 5 MG PO SCH (09:16)
[2016-06-12] MEDS: Metoprolol Tartrate TAB* 25 MG PO SCH ×2 (09:16→21:09)
[2016-06-12] MEDS: Spironolactone TAB* 25 MG PO SCH (09:16)
[2016-06-12] MEDS: Metolazone TAB* 5 MG PO SCH (09:16)
[2016-06-12] MEDS: Fluticasone NASAL SPRAY 50MCG* 16 gm SPRAY BTL BOTH NARES SCH (09:17)
[2016-06-12] MEDS: Insulin ISOPH/REG 70/30 (*) 1 UNITS UNIT SUBCUT SCH ×2 (09:17→17:11)
[2016-06-12] MEDS: CMC:Ketoconazole 2 % CREAM (NF) 30 GM TUBE TOPICAL SCH ×2 (09:17→21:17)
[2016-06-12] MEDS: Mometasone/Formoter 200/5 MDI INH SCH ×2 (09:22→21:14)
[2016-06-12] MEDS: Tiotropium CAP.INH* CAP.INH/18 MCG (USE ORDER SET !) INH SCH (09:22)
[2016-06-12] MEDS: Acetaminophen TAB* 325 MG PO PRN (15:11)
[2016-06-12] MEDS: oxyCODONE/Acetamin 5/325 MG* TAB PO PRN ×2 (16:20→22:05)
--- NOTE | 2016-06-12 16:41 | PN ---
Subjective Date of Service: 06/12/16 Interval History: Pt feels tired. Was able to sit at the edge of the bed, but no OOB with PT yet. Refuses to have Santos out till ambulating Objective Active Medications: Acetaminophen (Tylenol Tab*) 650 mg PO Q4H PRN PRN Reason: FEVER/PAIN Last Admin: 06/12/16 15:11 Dose: 650 mg Albuterol (Ventolin 2.5 Mg/3 Ml Neb.Christy*) 2.5 mg INH Q4H PRN PRN Reason: SHORTNESS OF BREATH Last Admin: 06/12/16 15:35 Dose: 2.5 mg Allopurinol (Zyloprim Tab*) 600 mg PO DAILY [facility] Last Admin: 06/12/16 09:15 Dose: 600 mg Dextrose (D50w Syringe 50 Ml*) 12.5 gm IV PUSH .FOR FS < 60 - SS PRN PRN Reason: FS < 60 Diltiazem HCl (Cardizem Cd Cap*) 360 mg PO DAILY [facility] Last Admin: 06/12/16 09:15 Dose: 360 mg Fluticasone Propionate (Flonase Nasal [place] 50mcg*) 2 spray BOTH NARES DAILY [facility] Last Admin: 06/12/16 09:17 Dose: 2 spray Furosemide (Lasix Iv*) 100 mg IV BID [facility] Stop: 06/12/16 23:59 Last Admin: 06/12/16 09:15 Dose: 100 mg Furosemide (Lasix Tab*) 100 mg PO 0800,1700 [facility] Insulin Human Isoph/Insulin Regular (Humulin 70/30 (*)) 50 units SUBCUT BID AC [facility] Last Admin: 06/12/16 09:17 Dose: 50 units Insulin Human Lispro (Humalog*) 0 units SUBCUT ACHS [facility] PRN Reason: Protocol Last Admin: 06/12/16 12:30 Dose: 3 units Ketoconazole (Nizoral 2% Cream (Nf)) 1 applic TOPICAL BID [facility] PRN Reason: Protocol Last Admin: 06/12/16 09:17 Dose: 1 applic Levothyroxine Sodium (Synthroid Tab*) 400 mcg PO DAILY@0600 [facility] Last Admin: 06/12/16 06:12 Dose: 400 mcg Metolazone (Zaroxolyn Tab*) 5 mg PO DAILY [facility] Last Admin: 02/06/17 09:16 Dose: 5 mg Metoprolol Tartrate (Lopressor Tab*) 25 mg PO BID [facility] Last Admin: 06/12/16 09:16 Dose: 25 mg Mometasone Furoate/Formoterol Fumar (Dulera 200/5 Mdi*) 2 puff INH BID [facility] Last Admin: 06/12/16 09:22 Dose: 2 puff Oxycodone/Acetaminophen (Percocet 5/325 Tab*) 1 tab PO Q4H PRN PRN Reason: PAIN Last Admin: 06/12/16 16:20 Dose: 1 tab Prednisone (Deltasone Tab*) 5 mg PO DAILY [facility] Last Admin: 06/12/16 09:16 Dose: 5 mg Spironolactone (Aldactone Tab*) 50 mg PO DAILY [facility] Last Admin: 06/12/16 09:16 Dose: 50 mg Tiotropium [place] (Spiriva Cap.Inh*) 1 cap INH DAILY [facility] Last Admin: 06/12/16 09:22 Dose: 1 cap Warfarin Sodium (Coumadin Tab(*)) 15 mg PO [facility]@1700 [facility] PRN Reason: Protocol Last Admin: 06/11/16 17:42 Dose: 15 mg Vital Signs 06/11/16 06/11/16 06/11/16 16:43 20:00 21:25 Temperature 98.0 F Pulse Rate 76 63 Respiratory 20 20 20 Rate Blood Pressure 157/59 (mmHg) O2 Sat by Pulse 93 95 Oximetry 06/11/16 06/12/16 06/12/16 23:00 03:08 07:49 Temperature 97.5 F 97.8 F Pulse Rate 67 63 75 Respiratory 16 20 16 Rate Blood Pressure 140/54 159/72 (mmHg) O2 Sat by Pulse 95 95 97 Oximetry 06/12/16 06/12/16 06/12/16 08:00 09:26 15:38 Temperature Pulse Rate 66 68 Respiratory 20 18 20 Rate Blood Pressure (mmHg) O2 Sat by Pulse 93 93 Oximetry 06/12/16 16:20 Temperature Pulse Rate Respiratory 20 Rate Blood Pressure (mmHg) O2 Sat by Pulse Oximetry Oxygen Devices in Use Now: Nasal Cannula - at 5 L Appearance: 50 yo M in nAd, aAOx3, morbitly obese Eyes: No Scleral Icterus, PERRLA Ears/Nose/Mouth/Throat: NL Teeth, Lips, Gums, Mucous Membranes Moist Neck: NL Appearance and Movements; NL JVP, Trachea Midline Respiratory: Symmetrical Chest Expansion and Respiratory Effort, - - decreased breath sounds b/l. Large R chest wall lipoma Cardiovascular: NL Sounds; No Murmurs; No JVD, RRR Abdominal: NL Sounds; No Tenderness; No Distention, - - umbilical hernia noted, nontender Lymphatic: No Cervical Adenopathy Extremities: No Clubbing, Cyanosis, - - trace pedal edma and evous stasis changes b/l distal LE's Skin: No Nodules or Sclerosis, - - scattered psoriasis plaques Neurological: Alert and Oriented x 3, NL Muscle Strength and Tone Result Diagrams: 06/09/16 06:52 06/11/16 05:42 Microbiology and Other Data: Microbiology 06/08/16 16:40 Nasal Screen MRSA (PCR)(JEAN CARLOS) - Final Nasal Mrsa Positive Assess/Plan/Problems-Billing Assessment: 50 yo M with h/o morbid obesity, DVT/PE, COPD on 4-5 L 02 at home presents with weight gain and worsening SOB. - Patient Problems (1) Acute on chronic diastolic (congestive) heart failure Comment: Lasix IV changed to PO today, ont PO Zaroxolyn and Aldactone Daily weights unreliable due to pt's immobility and problems with getting a correct weight According to I/O's pt is >7 L negative in the past 24H. 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 (6) Sleep apnea Comment: Pt to use his own CPAP machine. (7) Elevated troponin I level Comment: chronically elevated. No need for further work-up at this time. (8) DVT prophylaxis Comment: Coumadin (9) Hypercarbia Comment: chonic elevation of serum bicarb, suspect chronic C02 retention, consistent with prior (10) COPD (chronic obstructive pulmonary disease) Comment: On 4-5 L 02 at home,not in exacerbation (11) DVT of right axillary vein, chronic Comment: and h/o remote PE cont coumadin, INR therapeutic Status and Disposition: inpatient for CHF. Pt has a santos in place and requests to leave it in till he is more mobile, agrees [facility] Med[facility] ready for discharge
[2016-06-12] MEDS: Warfarin TAB(*) 7.5 MG PO SCH (17:11)
[2016-06-12 23:56] LABS: Urine Bacteria 1+ (Absent); Urine Bilirubin Negative (Negative); Urine Glucose Negative (Negative); Urine Nitrite Negative (Negative)
[2016-06-13] MEDS: Levothyroxine TAB* 100 MCG TAB PO SCH (05:58)
[2016-06-13 06:27] LABS: BUN/Creatinine Ratio 52.6 (8-20); Calcium 9.3 mg/dL (8.6-10.3); EGFR African American 61.6 (>60); EGFR Non-African American 47.9 (>60); Potassium 3.9 mmol/L (3.5-5.0)
[2016-06-13 06:32] LABS: Troponin I 0.04 ng/mL (<0.04)
[2016-06-13] MEDS: Insulin LISPRO* 1 UNITS UNIT SUBCUT SCH ×4 (08:01→21:26)
[2016-06-13] MEDS: Insulin ISOPH/REG 70/30 (*) 1 UNITS UNIT SUBCUT SCH ×2 (09:00→17:53)
[2016-06-13] MEDS: Metolazone TAB* 5 MG PO SCH (09:02)
[2016-06-13] MEDS: Metoprolol Tartrate TAB* 25 MG PO SCH ×2 (09:02→21:25)
[2016-06-13] MEDS: predniSONE TAB* 5 MG PO SCH (09:02)
[2016-06-13] MEDS: Diltiazem CD CAP* 180 MG PO SCH (09:03)
[2016-06-13] MEDS: Allopurinol TAB* 300 MG PO SCH (09:03)
[2016-06-13] MEDS: Furosemide TAB* 40 MG PO SCH ×2 (09:04→17:50)
[2016-06-13] MEDS: Spironolactone TAB* 25 MG PO SCH (09:04)
[2016-06-13] MEDS: Fluticasone NASAL SPRAY 50MCG* 16 gm SPRAY BTL BOTH NARES SCH (09:08)
[2016-06-13] MEDS: Mometasone/Formoter 200/5 MDI INH SCH ×2 (09:50→21:27)
[2016-06-13] MEDS: Tiotropium CAP.INH* CAP.INH/18 MCG (USE ORDER SET !) INH SCH (09:51)
--- NOTE | 2016-06-13 10:19 | PN ---
Subjective Date of Service: 06/13/16 Interval History: Pt feels "loopy " today. Noted that the skin on R chest -lipoma is with increased warmth and edema Objective Active Medications: Acetaminophen (Tylenol Tab*) 650 mg PO Q4H PRN PRN Reason: FEVER/PAIN Last Admin: 06/12/16 15:11 Dose: 650 mg Albuterol (Ventolin 2.5 Mg/3 Ml Neb.Crhisty*) 2.5 mg INH Q4H PRN PRN Reason: SHORTNESS OF BREATH Last Admin: 06/12/16 21:09 Dose: 2.5 mg Allopurinol (Zyloprim Tab*) 600 mg PO DAILY [facility] Last Admin: 06/13/16 09:03 Dose: 600 mg Dextrose (D50w Syringe 50 Ml*) 12.5 gm IV PUSH .FOR FS < 60 - SS PRN PRN Reason: FS < 60 Diltiazem HCl (Cardizem Cd Cap*) 360 mg PO DAILY [facility] Last Admin: 06/13/16 09:03 Dose: 360 mg Doxycycline Hyclate (Vibramycin Cap(*)) 100 mg PO BID [facility] Fluticasone Propionate (Flonase Nasal [place] 50mcg*) 2 spray BOTH NARES DAILY [facility] Last Admin: 06/13/16 09:08 Dose: 2 spray Furosemide (Lasix Tab*) 100 mg PO 0800,1700 [facility] Last Admin: 06/13/16 09:04 Dose: 100 mg Insulin Human Isoph/Insulin Regular (Humulin 70/30 (*)) 50 units SUBCUT BID AC [facility] Last Admin: 06/13/16 09:00 Dose: 50 units Insulin Human Lispro (Humalog*) 0 units SUBCUT ACHS [facility] PRN Reason: Protocol Last Admin: 06/13/16 08:01 Dose: Not Given Ketoconazole (Nizoral 2% Cream (Nf)) 1 applic TOPICAL BID [facility] PRN Reason: Protocol Last Admin: 06/12/16 21:17 Dose: 1 applic Levothyroxine Sodium (Synthroid Tab*) 400 mcg PO DAILY@0600 [facility] Last Admin: 06/13/16 05:58 Dose: 400 mcg Metolazone (Zaroxolyn Tab*) 5 mg PO DAILY [facility] Last Admin: 06/13/16 09:02 Dose: 5 mg Metoprolol Tartrate (Lopressor Tab*) 25 mg PO BID [facility] Last Admin: 06/13/16 09:02 Dose: 25 mg Mometasone Furoate/Formoterol Fumar (Dulera 200/5 Mdi*) 2 puff INH BID [facility] Last Admin: 06/13/16 09:50 Dose: 2 puff Oxycodone/Acetaminophen (Percocet 5/325 Tab*) 1 tab PO Q4H PRN PRN Reason: PAIN Last Admin: 06/12/16 22:05 Dose: 1 tab Prednisone (Deltasone Tab*) 5 mg PO DAILY [facility] Last Admin: 06/13/16 09:02 Dose: 5 mg Spironolactone (Aldactone Tab*) 50 mg PO DAILY [facility] Last Admin: 06/13/16 09:04 Dose: 50 mg Tiotropium [place] (Spiriva Cap.Inh*) 1 cap INH DAILY [facility] Last Admin: 06/13/16 09:51 Dose: 1 cap Warfarin Sodium (Coumadin Tab(*)) 15 mg PO SuMoTuThFrSa@1700 [facility] PRN Reason: Protocol Last Admin: 06/12/16 17:11 Dose: 15 mg Vital Signs 06/12/16 06/12/16 06/12/16 15:38 16:20 18:20 Temperature Pulse Rate 68 Respiratory 20 20 20 Rate Blood Pressure (mmHg) O2 Sat by Pulse 93 Oximetry 06/12/16 06/12/16 06/12/16 20:00 21:15 22:05 Temperature Pulse Rate 80 Respiratory 20 20 22 Rate Blood Pressure (mmHg) O2 Sat by Pulse 98 Oximetry 06/12/16 06/13/16 06/13/16 23:00 00:05 07:45 Temperature 98 F 97.7 F Pulse Rate 70 72 Respiratory 20 18 20 Rate Blood Pressure 132/62 153/76 (mmHg) O2 Sat by Pulse 94 95 Oximetry 06/13/16 06/13/16 06/13/16 09:54 09:55 09:58 Temperature 98.1 F Pulse Rate 72 72 69 Respiratory 20 20 18 Rate Blood Pressure 170/58 (mmHg) O2 Sat by Pulse 95 95 94 Oximetry Oxygen Devices in Use Now: Nasal Cannula - at 5 L Appearance: 50 yo M, morbitly obese, in NAD, aAOx3 Eyes: No Scleral Icterus, PERRLA Ears/Nose/Mouth/Throat: NL Teeth, Lips, Gums, Mucous Membranes Moist Neck: NL Appearance and Movements; NL JVP, Trachea Midline Respiratory: Symmetrical Chest Expansion and Respiratory Effort, - - distant, but clear b/l. R chest with large lipoma the size of soccer ball with skin with mild erythema and increased warmth. Next to pt's R niple an area of excoriation with chronic apearing erythema surrounding at 2 cm in diam Cardiovascular: NL Sounds; No Murmurs; No JVD, RRR Abdominal: NL Sounds; No Tenderness; No Distention Lymphatic: No Cervical Adenopathy Extremities: No Edema, No Clubbing, Cyanosis, - - + 1 pitting pedal edema Neurological: Alert and Oriented x 3, - - generalized weakness Result Diagrams: 06/09/16 06:52 06/13/16 05:41 Microbiology and Other Data: Microbiology 06/08/16 16:40 Nasal Screen MRSA (PCR)(JEAN CARLOS) - Final Nasal Mrsa Positive Assess/Plan/Problems-Billing Assessment: 50 yo M with h/o morbid obesity, DVT/PE, COPD on 4-5 L 02 at home presents with weight gain and worsening SOB. - Patient Problems (1) Acute on chronic diastolic (congestive) heart failure Comment: Lasix IV changed to on 06/12/16, cont PO Zaroxolyn and Aldactone Daily weights unreliable due to pt's immobility and problems with getting a correct weight According to I/O's pt is 6900 mL negative in the past 24H. 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 (6) Sleep apnea Comment: Pt to use his own CPAP machine. (7) Elevated troponin I level Comment: chronically elevated. No need for further work-up at this time. (8) Hypercarbia Comment: chonic elevation of serum bicarb, suspect chronic C02 retention, consistent with prior (9) COPD (chronic obstructive pulmonary disease) Comment: On 4-5 L 02 at home,not in exacerbation (10) DVT of right axillary vein, chronic Comment: and h/o remote PE cont coumadin, INR therapeutic (11) Cellulitis Comment: pt appears to be developing cellulitis on R chest lipoma site. will check CBC, CRP. Currently afebrile and nontoxic appearing. I think it is reasonable to try to treat it with PO Doxy due to h/o MRSA and monitor x 24H. (12) DVT prophylaxis Comment: Coumadin Status and Disposition: inpatient for CHF. Pt has a [place] in place and requests to leave it in till he is more mobile, agrees to [facility] STR. Medically need s to be monitored x 24H due to possible developing R chest cellulitis
[2016-06-13] MEDS: Albuterol 2.5 MG/3 ML NEB.SOL* (0.083%) INH PRN ×3 (10:31→23:11)
[2016-06-13] MEDS: CMC:Ketoconazole 2 % CREAM (NF) 30 GM TUBE TOPICAL SCH ×2 (10:33→21:28)
[2016-06-13] MEDS: DOXYcycline CAP(*) 100 MG PO SCH ×2 (11:47→21:25)
[2016-06-13 11:52] LABS: Hematocrit 38 % (42-52); Hemoglobin 11.6 g/dl (14.0-18.0); Mean Corpuscular HGB Conc 30 g/dl (31-36); Mean Corpuscular Hemoglobin 27 pg (27-31); Mean Corpuscular Volume 90 fL (80-94); Mean Platelet Volume 8 um3 (7.4-10.4); Red Blood Count 4.23 10^6/ul (4.0-5.4); Red Cell Distribution Width 19 % (10.5-15); White Blood Count 11.9 10^3/ul (3.5-10.8)
[2016-06-13 11:53] LABS: Add Diff/Slide Review? Slide Review Added; Comments Flag Yes
[2016-06-13] MEDS: Warfarin TAB(*) 7.5 MG PO SCH (17:50)
[2016-06-14] MEDS: Levothyroxine TAB* 100 MCG TAB PO SCH (05:54)
[2016-06-14 07:05] LABS: Hematocrit 37 % (42-52); Hemoglobin 11.6 g/dl (14.0-18.0); Mean Corpuscular HGB Conc 31 g/dl (31-36); Mean Corpuscular Hemoglobin 27 pg (27-31); Mean Corpuscular Volume 88 fL (80-94); Mean Platelet Volume 8 um3 (7.4-10.4); Red Blood Count 4.24 10^6/ul (4.0-5.4); Red Cell Distribution Width 18 % (10.5-15); White Blood Count 12.3 10^3/ul (3.5-10.8)
[2016-06-14 07:16] LABS: Add Diff/Slide Review? Slide Review Added; Comments Flag Yes
[2016-06-14 07:19] LABS: BUN/Creatinine Ratio 56.6 (8-20); Calcium 9.3 mg/dL (8.6-10.3); EGFR Non-African American 51.3 (>60)
[2016-06-14] MEDS: Insulin ISOPH/REG 70/30 (*) 1 UNITS UNIT SUBCUT SCH ×2 (07:59→16:58)
[2016-06-14] MEDS: Insulin LISPRO* 1 UNITS UNIT SUBCUT SCH ×4 (08:00→20:59)
[2016-06-14] MEDS: oxyCODONE/Acetamin 5/325 MG* TAB PO PRN ×2 (08:04→12:53)
[2016-06-14] MEDS: Spironolactone TAB* 25 MG PO SCH (08:06)
[2016-06-14] MEDS: DOXYcycline CAP(*) 100 MG PO SCH ×2 (08:06→20:58)
[2016-06-14] MEDS: predniSONE TAB* 5 MG PO SCH (08:07)
[2016-06-14] MEDS: Metolazone TAB* 5 MG PO SCH (08:07)
[2016-06-14] MEDS: Allopurinol TAB* 300 MG PO SCH (08:08)
[2016-06-14] MEDS: Diltiazem CD CAP* 180 MG PO SCH (08:08)
[2016-06-14] MEDS: Metoprolol Tartrate TAB* 25 MG PO SCH ×2 (08:09→20:58)
[2016-06-14] MEDS: Furosemide TAB* 40 MG PO SCH ×2 (08:10→16:57)
[2016-06-14] MEDS: Fluticasone NASAL SPRAY 50MCG* 16 gm SPRAY BTL BOTH NARES SCH (08:12)
[2016-06-14] MEDS: CMC:Ketoconazole 2 % CREAM (NF) 30 GM TUBE TOPICAL SCH ×2 (08:12→21:01)
[2016-06-14] MEDS: Mometasone/Formoter 200/5 MDI INH SCH ×2 (08:15→19:33)
[2016-06-14] MEDS: Albuterol 2.5 MG/3 ML NEB.SOL* (0.083%) INH PRN ×3 (08:27→19:35)
[2016-06-14] MEDS: Tiotropium CAP.INH* CAP.INH/18 MCG (USE ORDER SET !) INH SCH (08:27)
--- NOTE | 2016-06-14 18:17 | PN ---
Subjective Date of Service: 06/14/16 Interval History: Seen and examined with mother at bedside has no complaints Feels breathing is good No pain in right chest Objective Active Medications: Acetaminophen (Tylenol Tab*) 650 mg PO Q4H PRN PRN Reason: FEVER/PAIN Last Admin: 06/12/16 15:11 Dose: 650 mg Albuterol (Ventolin 2.5 Mg/3 Ml Neb.Christy*) 2.5 mg INH Q4H PRN PRN Reason: SHORTNESS OF BREATH Last Admin: 06/14/16 13:43 Dose: 2.5 mg Allopurinol (Zyloprim Tab*) 600 mg PO DAILY [facility] Last Admin: 06/14/16 08:08 Dose: 600 mg Dextrose (D50w Syringe 50 Ml*) 12.5 gm IV PUSH .FOR FS < 60 - SS PRN PRN Reason: FS < 60 Diltiazem HCl (Cardizem Cd Cap*) 360 mg PO DAILY [facility] Last Admin: 06/14/16 08:08 Dose: 360 mg Doxycycline Hyclate (Vibramycin Cap(*)) 100 mg PO BID [facility] Last Admin: 06/14/16 08:06 Dose: 100 mg Fluticasone Propionate (Flonase Nasal [place] 50mcg*) 2 spray BOTH NARES DAILY [facility] Last Admin: 06/14/16 08:12 Dose: 2 spray Furosemide (Lasix Tab*) 100 mg PO 0800,1700 [facility] Last Admin: 06/14/16 16:57 Dose: 100 mg Insulin Human Isoph/Insulin Regular (Humulin 70/30 (*)) 50 units SUBCUT BID AC [facility] Last Admin: 06/14/16 16:58 Dose: 50 units Insulin Human Lispro (Humalog*) 0 units SUBCUT ACHS [facility] PRN Reason: Protocol Last Admin: 06/14/16 16:58 Dose: 6 units Ketoconazole (Nizoral 2% Cream (Nf)) 1 applic TOPICAL BID [facility] PRN Reason: Protocol Last Admin: 06/14/16 08:12 Dose: 1 applic Levothyroxine Sodium (Synthroid Tab*) 400 mcg PO DAILY@0600 [facility] Last Admin: 06/14/16 05:54 Dose: 400 mcg Metolazone (Zaroxolyn Tab*) 5 mg PO DAILY [facility] Last Admin: 06/14/16 08:07 Dose: 5 mg Metoprolol Tartrate (Lopressor Tab*) 25 mg PO BID [facility] Last Admin: 06/14/16 08:09 Dose: 25 mg Mometasone Furoate/Formoterol Fumar (Dulera 200/5 Mdi*) 2 puff INH BID [facility] Last Admin: 06/14/16 08:15 Dose: 2 puff Oxycodone/Acetaminophen (Percocet 5/325 Tab*) 1 tab PO Q4H PRN PRN Reason: PAIN Last Admin: 06/14/16 12:53 Dose: 1 tab Prednisone (Deltasone Tab*) 5 mg PO DAILY [facility] Last Admin: 06/14/16 08:07 Dose: 5 mg Spironolactone (Aldactone Tab*) 50 mg PO DAILY [facility] Last Admin: 06/14/16 08:06 Dose: 50 mg Tiotropium [place] (Spiriva Cap.Inh*) 1 cap INH DAILY [facility] Last Admin: 06/14/16 08:27 Dose: 1 cap Warfarin Sodium (Coumadin Tab(*)) 15 mg PO [facility]@1700 [facility] PRN Reason: Protocol Last Admin: 06/13/16 17:50 Dose: 15 mg Vital Signs 06/13/16 06/13/16 06/14/16 20:00 23:24 01:04 Temperature 98.2 F Pulse Rate 58 75 Respiratory 20 20 22 Rate Blood Pressure 119/63 (mmHg) O2 Sat by Pulse 98 93 Oximetry 06/14/16 06/14/16 06/14/16 02:06 08:00 08:04 Temperature 98.0 F Pulse Rate 65 76 Respiratory 20 14 18 Rate Blood Pressure 160/75 (mmHg) O2 Sat by Pulse 94 97 Oximetry 06/14/16 06/14/16 06/14/16 08:29 10:04 12:53 Temperature Pulse Rate 72 Respiratory 20 14 18 Rate Blood Pressure (mmHg) O2 Sat by Pulse 97 Oximetry 06/14/16 06/14/16 06/14/16 13:43 14:24 14:53 Temperature 98.3 F Pulse Rate 72 74 Respiratory 20 20 14 Rate Blood Pressure 161/73 (mmHg) O2 Sat by Pulse 97 92 Oximetry 06/14/16 17:12 Temperature 98.4 F Pulse Rate 73 Respiratory 18 Rate Blood Pressure 143/88 (mmHg) O2 Sat by Pulse 95 Oximetry Oxygen Devices in Use Now: Nasal Cannula - at 5 L Appearance: NAD Eyes: No Scleral Icterus, PERRLA Ears/Nose/Mouth/Throat: NL Teeth, Lips, Gums, Clear Oropharnyx, Mucous Membranes Moist Neck: NL Appearance and Movements; NL JVP, Trachea Midline Respiratory: Symmetrical Chest Expansion and Respiratory Effort, - - decreased BS Cardiovascular: NL Sounds; No Murmurs; No JVD, RRR, - - large lipoma on right chest wall Abdominal: NL Sounds; No Tenderness; No Distention, No Hepatosplenomegaly Extremities: - - chronic venous stasis changes, 1+ LE edema Skin: - - right chest wall with small healing ulceration and small area of erythema on lipoma Neurological: Alert and Oriented x 3 Result Diagrams: 06/14/16 06:42 06/14/16 06:42 Microbiology and Other Data: Microbiology 06/08/16 16:40 Nasal Screen MRSA (PCR)(JEAN CARLOS) - Final Nasal Mrsa Positive Assess/Plan/Problems-Billing Assessment: 50 yo M with h/o morbid obesity, DVT/PE, COPD on 4-5 L 02 at home presents with weight gain and worsening SOB. - Patient Problems (1) Acute on chronic diastolic (congestive) heart failure Comment: Lasix IV changed to PO on 06/12/16 c/w PO Zaroxolyn and Aldactone Daily weights unreliable due to pt's immobility and problems with getting a correct weight (2) Atrial fibrillation Comment: currently in NSR (3) Cardiomyopathy Comment: LVEF 45-50% on 10/24/15. (4) Cellulitis Comment: pt appears to be developing cellulitis on R chest lipoma site. 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 No need for further work-up at this time. (10) Hypercarbia Comment: chonic elevation of serum bicarb, suspect chronic C02 retention, consistent with prior (11) Sleep apnea Comment: Pt to use his own CPAP machine. (12) DVT prophylaxis Comment: Coumadin Status and Disposition: inpatient for CHF. Pt has a Wyatt in place and requests to leave it in till he is more mobile, agrees to [facility]. Medically need s to be monitored x another 24H due to possible developing R chest cellulitis
[2016-06-15] MEDS: Albuterol 2.5 MG/3 ML NEB.SOL* (0.083%) INH PRN ×2 (00:58→06:06)
[2016-06-15] MEDS: Acetaminophen TAB* 325 MG PO PRN (02:33)
[2016-06-15] MEDS: Levothyroxine TAB* 100 MCG TAB PO SCH (05:14)
[2016-06-15 08:07] VITALS: BP 144/78
[2016-06-15] MEDS: Insulin LISPRO* 1 UNITS UNIT SUBCUT SCH (09:00)
[2016-06-15] MEDS: Allopurinol TAB* 300 MG PO SCH (09:14)
[2016-06-15] MEDS: Spironolactone TAB* 25 MG PO SCH (09:14)
[2016-06-15] MEDS: Diltiazem CD CAP* 180 MG PO SCH (09:15)
[2016-06-15] MEDS: DOXYcycline CAP(*) 100 MG PO SCH (09:15)
[2016-06-15] MEDS: Metolazone TAB* 5 MG PO SCH (09:15)
[2016-06-15] MEDS: Furosemide TAB* 40 MG PO SCH (09:15)
[2016-06-15] MEDS: Metoprolol Tartrate TAB* 25 MG PO SCH (09:16)
[2016-06-15] MEDS: CMC:Ketoconazole 2 % CREAM (NF) 30 GM TUBE TOPICAL SCH (09:16)
[2016-06-15] MEDS: Fluticasone NASAL SPRAY 50MCG* 16 gm SPRAY BTL BOTH NARES SCH (09:18)
[2016-06-15] MEDS: Insulin ISOPH/REG 70/30 (*) 1 UNITS UNIT SUBCUT SCH (09:18)
[2016-06-15] MEDS: Tiotropium CAP.INH* CAP.INH/18 MCG (USE ORDER SET !) INH SCH (09:36)
[2016-06-15] MEDS: Mometasone/Formoter 200/5 MDI INH SCH (09:36)
--- NOTE | 2016-06-15 22:42 | DS ---
DISCHARGE/ADMISSION NOTE: 1. Discharged to swing status. 2. Admission to swing status. DATE OF ADMISSION INPATIENT STATUS: 06/08/16 DATE OF DISCHARGE AND ADMISSION TO SWING STATUS: 06/15/16 PRIMARY DIAGNOSES: 1. Acute on chronic congestive heart failure exacerbation. 2. Cellulitis of right chest wall lipoma. 3. Chronic obstructive pulmonary disease with chronic respiratory failure, on home CPAP 4 to 5 L oxygen. 4. Morbid obesity. MEDICATIONS ON DISCHARGE AND ADMISSION: Include: 1. Acetaminophen 650 mg every 4 hours as needed for pain or fever. 2. Albuterol nebulizer every 4 hours as needed. 3. Allopurinol 600 mg daily. 4. Doxycycline 100 mg twice daily. 5. Diltiazem CD 360 mg daily. 6. Fluticasone nasal spray 2 sprays both nares daily. 7. Lasix 100 mg twice daily increased from 80 mg twice daily from home dose. 8. Insulin isophane/regular 70/30 50 units twice daily decreased from 70 units twice daily on home dose. 9. Ketoconazole 2% cream topically twice daily. 10. Levothyroxine 400 mcg daily. 11. Metolazone 5 mg daily. 12. Metoprolol tartrate 25 mg twice daily. 13. Dulera 2 puffs inhaled twice daily, changed from Advair as outpatient. 14. Spironolactone 50 mg daily. 15. Tiotropium 1 cap daily. 16. Coumadin 15 mg Sunday, Sunday, , Sunday, Sunday, Sunday and Coumadin 7.5 mg on Wednesdays. 17. Percocet 5/325 1 tab every 4 hours as needed for pain. IMAGING PERFORMED DURING HOSPITAL STAY: Includes a CT chest to evaluate his right chest wall lipoma with impression, while details limited due to morbid obesity, the constellation findings of the right axilla is most suspicious for a large lipoma and an overlying nonspecific skin thickening and subcutaneous edema. Due to the magnitude of obesity and difference in positioning comparison with 2012 exam is limited. Correlate for potential cellulitis. Interval growth or development of pain associated with a lump would raise concern for potential malignant transformation, in which case tissue sampling would be indicated to asses for malignancy. HISTORY OF PRESENT ILLNESS AND SUMMARY OF HOSPITAL COURSE: This is a 50-year- old man with past medical history of atrial fibrillation on Coumadin, type 2 diabetes, history of DVT in the right upper extremity and a history of COPD or chronic respiratory failure 4 to 5 L of home oxygen, hypertension, history of chronic kidney disease stage 3, hyperlipidemia, peripheral vascular disease, hypothyroidism, arthritis, VENTURA on home CPAP and gout, history of super-morbid obesity presented to the hospital originally on 06/08/2016 with noting increasing fluid accumulation, as well as sensation of feeling dizzy, and weakness in his legs and absence of shortness of breath. He was diagnosed with acute on chronic CHF exacerbation in the hospital and started on IV diuretics with brisk diuresis greater than 1 L out per day. It was noted that his daily weights were inaccurate due to difficulty in weighing this gentleman with super- morbid obesity. Lower extremity swelling and overall volume status improved, however, he continued to remain weak in his legs and had difficulty ambulating. He notes that he previously was ambulatory at least 10 to 20 feet, but now having difficulty "moving his feet" when getting out of bed but no difficulty moving the feet and legs in bed. A Wyatt catheter was placed secondary to difficulty getting out of bed and for hemodynamic monitoring. He did refuse to remove the Wyatt catheter after being placed as he could not use a urinal in bed and could not yet ambulate to bathroom unassisted. Prior to his transition to swing status, he was started back on Lasix oral dosing, however, increased from 80 home dose to 100 mg new dose. Additionally, he was noted to have erythema over his right axillary mass. This mass thought to represent a lipoma and has been there for many years at least 6 years according to the patient. He has faint erythema, which improved on doxycycline. Medial to the chest wall mass is a small serration. The patient noted it developed like a pimple and popped as he scratched. Also surrounding erythema improving on doxycycline, might be the source of underlying cellulitis. He had no tenderness or fluctuance in the lipoma or in the chest wall mass. With diuresis, the patient status improved, however, still remained unable to walk to bathroom. He will be placed for a subacute rehab, however, difficulty in placing this patient at this time since he requires 3 person max assist to get out of bed. He will continue physical therapy in hospital stay, as well as oral medications for his chronic now compensated heart failure and for right chest wall cellulitis overlying lipoma while we search for additional placement options and continue physical therapy. On the day of transition to swing status, the patient had no complaints, has no cough, his respirations were unlabored on 4 L home oxygen. He had faint overlying his right lipoma and the medial ulceration is healing nicely without associated erythema. He has 1+ lower extremity edema. It is tense with chronic venous stasis changes on the skin. His abdomen has an umbilical hernia that is reducible. His strength is 5/5 when tested in his lower extremities, somewhat limited by his pannus. TIME SPENT: Greater than 60 minutes was spent in discharge and admission of this patient, greater than half was spent [id number] with the patient. [id number]/CPS #: [id number] VIGNESH
--- NOTE | 2016-07-08 20:04 | ED ---
Desiree Obrien Janilya, scribed for Pardeep Garcia MD on 06/08/16 at 0224 . Complex/Multi-Sys Presentation - HPI Summary HPI Summary: A 50 y/o male came in to [facility] presenting w/ a gradual onset of constant overall body fluid retention and edema starting Friday, June 03, 2016. Pt states that when he is on his feet, he feels like "an electric shock or a taser" is going through his body which makes him jerk and unstable on his feet causing him to fall down. Pt reports overall weakness, dizziness, lightheadedness, feeling of being hot, SOB that is more than normal. Pt says he hasn't been able to sleep in the past few days. Pt denies CP. Pt states that he exhibited these Sx before. Pt takes water pills usually once a day. Pt also normally takes Metolazone. Pt is not on any new medications. PMHx afib, DM (for which he takes insulin), blood clots 5-6 years ago, PICC lines 6 years ago. No PMHx of liver disease, heart stents. - History Of Current Complaint Chief Complaint: EDGeneral Time Seen by Provider: 06/08/16 00:35 Hx Obtained From: Patient Onset/Duration: Gradual Onset, Lasting Days, Still Present Timing: Constant Severity Currently: Moderate Severity Initially: Moderate Associated Signs And Symptoms: Positive: Dizziness, Weakness - Allergies/Home Medications Allergies/Adverse Reactions: Allergies Allergy/AdvReac Type Severity Reaction Status Date / Time Tigecycline Allergy Rash Verified 02/04/14 23:25 Home Medications: Home Medications Amoxicillin/Clavulanate TAB* [Augmentin TAB 875*] 875 mg PO BID 06/08/16 [ History Confirmed 06/08/16] Metolazone TAB* [Zaroxolyn TAB*] 5 mg PO DAILY 06/08/16 [History Confirmed 06/08] Prednisone 5 mg PO DAILY 06/08/16 [History Confirmed 06/08/16] Warfarin Sodium [Coumadin] 7.5 mg PO WEEKLY 06/08/16 [History Confirmed 06/08/16 ] Warfarin TAB(*) [Coumadin TAB(*)] 15 mg PO SEE INSTRUCTIONS 06/08/16 [History Confirmed 06/08/16] PMH/Surg Hx/FS Hx/Imm Hx Previously Healthy: Yes Endocrine/Hematology History: Reports: Hx Diabetes, Hx Thyroid Disease Cardiovascular History: Reports: Hx Atrial Fibrillation, Hx Deep Vein Thrombosis , Hx Hypercholesterolemia, Hx Hypertension, Hx Peripheral Vascular Disease, Other Cardiovascular Problems/Disorders - cardiomyopathy Respiratory History: Reports: Hx Asthma, Hx Chronic Obstructive Pulmonary Disease (COPD), Hx Pneumonia, Hx Pulmonary Embolism, Hx Sleep Apnea - compliant with cpap, Other Respiratory Problems/Disorders - SLEEP APNEA History: Reports: Hx Chronic Renal Failure Comment Only: Other Problems/Disorders - CKD Musculoskeletal History: Reports: Hx Arthritis, Hx Back Problems, Hx Gout - Immunization History Date of Influenza Vaccine: fall 2014 Infectious Disease History: No Infectious Disease History: Reports: Hx of Known/Suspected MRSA Denies: Traveled Outside the [place] in Last 30 Days - Family History Known Family History: Positive: Unknown - Social History Lives: With Family Alcohol Use: None Hx Substance Use: No Substance Use Type: Reports: None Hx Tobacco Use: Yes Smoking Status (MU): Former Smoker Type: Cigars Review of Systems Constitutional: Other - feeling of behing hot Negative: Fever, Chills Negative: Erythema Negative: Sore Throat Negative: Chest Pain Positive: Shortness Of Breath. Negative: Cough Negative: Abdominal Pain, Vomiting, Nausea Negative: dysuria, hematuria Positive: Edema. Negative: Myalgia Negative: Rash Neurological: Other - pt reports dizziness, lightheadedness Positive: Weakness All Other Systems Reviewed And Are Negative: Yes Physical Exam - Summary Physical Exam Summary: Constitutional: Alert. (-) Distressed. Skin: Anasarca w/ peau d'orange skin changes of right breast and lower abd. Venous statis skin changes. Psoriasis of both elbows and knees. HENT: Normocephalic; Atraumatic Eyes: Conjunctiva normal Neck: Musculoskeletal ROM normal neck. (-) JVD, (-) Stridor, (-) Tracheal deviation Cardio: Rhythm regular, rate normal, Heart sounds normal; Intact distal pulses; The pedal pulses are 2+ and symmetric. Radial pulses are 2+ and symmetric. (-) Murmur Pulmonary/Chest wall: Effort normal. (-) Respiratory distress, (-) Wheezes, (-) Rales Abd: Soft, (-) Tenderness, (-) Distension, (-) Guarding, (-) Rebound Musculoskeletal: 4+ pitting edema to lower extremities Lymph: (-) Cervical adenopathy Neuro: Alert, Oriented x3 Psych: Mood and affect Normal Triage Information Reviewed: Yes Vital Signs On Initial Exam: Initial Vitals Temp Pulse Resp BP Pulse Ox 97.4 F 84 24 143/68 96 06/08/16 00:39 06/08/16 00:39 06/08/16 00:39 06/08/16 00:39 06/08/16 00:39 Vital Signs Reviewed: Yes Diagnostics - Vital Signs Vital Signs Temp Pulse Resp BP Pulse Ox 06/08/16 01:52 81 20 142/67 95 06/08/16 00:39 97.4 F 84 24 143/68 96 - Laboratory Result Diagrams: 06/08/16 01:06 06/08/16 01:06 Lab Statement: Any lab studies that have been ordered have been reviewed, and results considered in the medical decision making process. - Radiology CXR Xray Interpretation: Positive (See Comments) - IMPRESSION: Pulmonary edema. Radiology Interpretation Completed By: ED Physician - Dr. Garcia Complex Multi-Symp Course/Dx - Diagnoses Provider Diagnoses: Fluid overload - Physician Notifications Discussed Care Of Patient With: Dr. Agrawal (hospitalist) at 0330: agrees to admit pt. Discharge - Discharge Plan Condition: Stable Disposition: ADMITTED TO [facility] The documentation as recorded by the Desiree gillespie Janilya accurately reflects the service I personally performed and the decisions made by , Pardeep Garcia MD.
== END 2016-06-15 09:20 | disposition swing bed (61) | DRG 194 ==
LOC: ED 00:22 → MEDTELE 05:16 → SSU 17:49 → MED 06-09 22:00
PROVIDERS: ADMIT Internal Medicine; ATTEND Internal Medicine
PROC: 0T9B70Z Drainage of Bladder with Drainage Device, Via Natural or Artificial Opening (ICD-10-PCS; principal; 2016-06-08)
DX: I13.0 Hypertensive heart and chronic kidney disease with heart failure and stage 1 through stage 4 chronic kidney disease, or unspecified chronic kidney disease (principal); I50.33 Acute on chronic diastolic (congestive) heart failure; J96.12 Chronic respiratory failure with hypercapnia; E11.51 Type 2 diabetes mellitus with diabetic peripheral angiopathy without gangrene; I42.9 Cardiomyopathy, unspecified; Z99.81 Dependence on supplemental oxygen; L03.313 Cellulitis of chest wall; Z68.45 Body mass index [BMI] 70 or greater, adult; I48.91 Unspecified atrial fibrillation; J44.9 Chronic obstructive pulmonary disease, unspecified; N18.3 Chronic kidney disease, stage 3 (moderate); E78.5 Hyperlipidemia, unspecified; E03.9 Hypothyroidism, unspecified; M19.90 Unspecified osteoarthritis, unspecified site; G47.33 Obstructive sleep apnea (adult) (pediatric); M10.9 Gout, unspecified; E66.01 Morbid (severe) obesity due to excess calories; I87.8 Other specified disorders of veins; K42.9 Umbilical hernia without obstruction or gangrene; K59.00 Constipation, unspecified; D17.1 Benign lipomatous neoplasm of skin and subcutaneous tissue of trunk; Z86.718 Personal history of other venous thrombosis and embolism; Z88.8 Allergy status to other drugs, medicaments and biological substances; Z79.4 Long term (current) use of insulin; Z79.01 Long term (current) use of anticoagulants
CPT/HCPCS: 36415; 71010; 71250; 80048; 80053; 81003; 81015; 83605; 83735; 83880; 84484; 85025; 85027; 85610; 86140; 87040; 87086; 87502; 87641; 93005; 93306; 94640; 94760; 96374; 96375; 99283; A9270-GY; J1940; J2543; J7512

== ENCOUNTER 2016-06-15 09:20 | Inpatient (IN) | payer BC, MEDICARE ==
[2016-06-15] MEDS ORDERED: Acetaminophen TAB* 325 MG PO PRN (09:53)
[2016-06-15] MEDS ORDERED: Dextrose 50% Syringe 50 ML* 25 GM/50 ML SYRINGE IV PUSH PRN (09:57)
--- NOTE | 2016-06-15 10:04 | PN ---
Subjective Date of Service: 06/15/16 Interval History: Seen and examined. Transitioned to SWING status this AM from inpatient Has no complaints. Denies SOB Still reports he "can't move my legs" when trying to walk but no difficulty when in bed Denies pain in right chest wall lipoma Objective Active Medications: Acetaminophen (Tylenol Tab*) 650 mg PO Q4H PRN PRN Reason: FEVER/PAIN Albuterol (Ventolin 2.5 Mg/3 Ml Neb.Christy*) 2.5 mg INH Q4H PRN PRN Reason: SHORTNESS OF BREATH Allopurinol (Zyloprim Tab*) 600 mg PO DAILY [facility] Dextrose (D50w Syringe 50 Ml*) 12.5 gm IV PUSH .FOR FS < 60 - SS PRN PRN Reason: FS < 60 Diltiazem HCl (Cardizem Cd Cap*) 360 mg PO DAILY [facility] Docusate Sodium (Colace Cap*) 100 mg PO BID [facility] Doxycycline Hyclate (Vibramycin Cap(*)) 100 mg PO BID [facility] Fluticasone Propionate (Flonase Nasal [place] 50mcg*) 2 spray BOTH NARES DAILY [facility] Furosemide (Lasix Tab*) 100 mg PO 0800,1700 [facility] Insulin Human Isoph/Insulin Regular (Humulin 70/30 (*)) 50 units SUBCUT BID AC [facility] Insulin Human Lispro (Humalog*) 0 units SUBCUT ACHS [facility] PRN Reason: Protocol Levothyroxine Sodium (Synthroid Tab (Nf)) 400 mcg PO QAM [facility] Metolazone (Zaroxolyn Tab*) 5 mg PO DAILY [facility] Metoprolol Tartrate (Lopressor Tab*) 25 mg PO BID [facility] Mometasone Furoate/Formoterol Fumar (Dulera 200/5 Mdi*) 2 puff INH BID [facility] Oxycodone/Acetaminophen (Percocet 5/325 Tab*) 1 tab PO Q4H PRN PRN Reason: PAIN Senna (Senokot Tab*) 1 tab PO BID [facility] Spironolactone (Aldactone Tab*) 50 mg PO DAILY [facility] Tiotropium [place] (Spiriva Cap.Inh*) 1 cap INH DAILY [facility] Warfarin Sodium (Coumadin Tab(*)) 7.5 mg PO WEEKLY [facility] PRN Reason: Protocol Warfarin Sodium (Coumadin Tab(*)) 15 mg PO SuMoTuThFrSa@1700 [facility] PRN Reason: Protocol Oxygen Devices in Use Now: Nasal Cannula - 4L Appearance: obese, NAD Eyes: No Scleral Icterus, PERRLA Ears/Nose/Mouth/Throat: Clear Oropharnyx, Mucous Membranes Moist Neck: NL Appearance and Movements; NL JVP, Trachea Midline Respiratory: Symmetrical Chest Expansion and Respiratory Effort, - - decreased Cardiovascular: NL Sounds; No Murmurs; No JVD, RRR Abdominal: NL Sounds; No Tenderness; No Distention, No Hepatosplenomegaly, - - umbilical hernia with associated edema but still reducible, Extremities: - - 1+ le tense edema; large right chest wall mass Skin: - - LE chronic venous stasis changes, mild erythema overlying riht chest wall mass, minimal warmth, no tenderness to deep palpation Neurological: Alert and Oriented x 3 Lines/Tubes/Other Access: Clean, Dry and Intact Santos Assess/Plan/Problems-Billing Assessment: 50 yo M h/o DVT/PE on coumadin, morbid obesity, COPD on 4-5L O2, p/w worsening weight gain, SOB, and LE weakness suspected in setting of acute on chronic CHF exacerbation with stay c/b cellulitis of right chest wall mass/lipoma - Patient Problems (1) Cellulitis Comment: cellulitis on R chest lipoma site. Improving on doxycycline monitor for resolution (2) Acute on chronic diastolic (congestive) heart failure Comment: Lasix IV changed to PO on 06/12/16 c/w PO Zaroxolyn and Aldactone Daily weights unreliable due to pt's immobility and problems with getting a correct weight Continue to follow I/O (pt has declined removal of santos catheter) (3) Atrial fibrillation Comment: currently in NSR coumadin for DVT/PE (4) Cardiomyopathy Comment: LVEF 45-50% on 10/24/15. 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 No need for further work-up at this time. (10) Hypercarbia Comment: chonic elevation of serum bicarb, suspect chronic C02 retention, consistent with prior (11) Sleep apnea Comment: using home CPAP machine. (12) DVT prophylaxis Comment: Coumadin
[2016-06-15] MEDS: predniSONE TAB* 5 MG PO SCH (11:45)
[2016-06-15] MEDS: Insulin LISPRO* 1 UNITS UNIT SUBCUT SCH ×3 (13:18→21:26)
[2016-06-15] MEDS: oxyCODONE/Acetamin 5/325 MG* TAB PO PRN ×2 (13:29→19:27)
[2016-06-15] MEDS: Albuterol 2.5 MG/3 ML NEB.SOL* (0.083%) INH PRN ×2 (15:00→20:23)
[2016-06-15] MEDS: Furosemide TAB* 40 MG PO SCH (17:07)
[2016-06-15] MEDS: Warfarin TAB(*) 7.5 MG PO SCH (17:10)
[2016-06-15] MEDS: Insulin ISOPH/REG 70/30 (*) 1 UNITS UNIT SUBCUT SCH (18:11)
[2016-06-15] MEDS: Docusate CAP* 100 MG PO SCH (20:11)
[2016-06-15] MEDS: Senna TAB PO SCH (20:11)
[2016-06-15] MEDS: Mometasone/Formoter 200/5 MDI INH SCH (20:23)
[2016-06-15] MEDS: Metoprolol Tartrate TAB* 25 MG PO SCH (21:25)
[2016-06-15] MEDS: DOXYcycline CAP(*) 100 MG PO SCH (21:25)
[2016-06-16] MEDS: oxyCODONE/Acetamin 5/325 MG* TAB PO PRN ×4 (01:57→22:02)
[2016-06-16] MEDS: Levothyroxine TAB* 100 MCG TAB PO SCH (05:24)
[2016-06-16] MEDS: Insulin LISPRO* 1 UNITS UNIT SUBCUT SCH ×4 (08:35→22:04)
[2016-06-16] MEDS: Senna TAB PO SCH ×2 (08:47→22:24)
[2016-06-16] MEDS: Furosemide TAB* 40 MG PO SCH ×2 (08:47→17:37)
[2016-06-16] MEDS: DOXYcycline CAP(*) 100 MG PO SCH ×2 (08:49→22:02)
[2016-06-16] MEDS: Diltiazem CD CAP* 180 MG PO SCH (08:49)
[2016-06-16] MEDS: Docusate CAP* 100 MG PO SCH ×2 (08:49→22:02)
[2016-06-16] MEDS: Allopurinol TAB* 300 MG PO SCH (08:50)
[2016-06-16] MEDS: predniSONE TAB* 5 MG PO SCH (08:50)
[2016-06-16] MEDS: Spironolactone TAB* 25 MG PO SCH (08:50)
[2016-06-16] MEDS: Fluticasone NASAL SPRAY 50MCG* 16 gm SPRAY BTL BOTH NARES SCH (08:51)
[2016-06-16] MEDS: Metoprolol Tartrate TAB* 25 MG PO SCH ×2 (08:51→22:24)
[2016-06-16] MEDS: Insulin ISOPH/REG 70/30 (*) 1 UNITS UNIT SUBCUT SCH ×2 (08:51→17:38)
[2016-06-16] MEDS: Metolazone TAB* 5 MG PO SCH (08:51)
[2016-06-16] MEDS ORDERED: Spiriva Inhaler DEVICE* 1 EACH DEVICE INH ONE (09:00)
[2016-06-16] MEDS: Albuterol 2.5 MG/3 ML NEB.SOL* (0.083%) INH PRN ×3 (09:05→20:16)
[2016-06-16] MEDS: Mometasone/Formoter 200/5 MDI INH SCH ×2 (09:07→20:17)
[2016-06-16] MEDS: Tiotropium CAP.INH* CAP.INH/18 MCG (USE ORDER SET !) INH SCH (13:50)
[2016-06-16] MEDS: Warfarin TAB(*) 7.5 MG PO SCH (17:37)
[2016-06-17] MEDS: oxyCODONE/Acetamin 5/325 MG* TAB PO PRN ×4 (01:31→16:58)
[2016-06-17] MEDS: Levothyroxine TAB* 100 MCG TAB PO SCH (05:25)
[2016-06-17] MEDS: Albuterol 2.5 MG/3 ML NEB.SOL* (0.083%) INH PRN ×3 (05:40→16:53)
[2016-06-17] MEDS: Insulin LISPRO* 1 UNITS UNIT SUBCUT SCH ×4 (07:40→22:01)
[2016-06-17] MEDS: Fluticasone NASAL SPRAY 50MCG* 16 gm SPRAY BTL BOTH NARES SCH (08:24)
[2016-06-17] MEDS: Furosemide TAB* 40 MG PO SCH ×2 (08:24→16:58)
[2016-06-17] MEDS: Docusate CAP* 100 MG PO SCH ×2 (08:25→21:30)
[2016-06-17] MEDS: Senna TAB PO SCH ×2 (08:25→21:30)
[2016-06-17] MEDS: DOXYcycline CAP(*) 100 MG PO SCH ×2 (08:25→21:30)
[2016-06-17] MEDS: Allopurinol TAB* 300 MG PO SCH (08:26)
[2016-06-17] MEDS: predniSONE TAB* 5 MG PO SCH (08:26)
[2016-06-17] MEDS: Diltiazem CD CAP* 180 MG PO SCH (08:26)
[2016-06-17] MEDS: Metolazone TAB* 5 MG PO SCH (08:26)
[2016-06-17] MEDS: Spironolactone TAB* 25 MG PO SCH (08:27)
[2016-06-17] MEDS: Insulin ISOPH/REG 70/30 (*) 1 UNITS UNIT SUBCUT SCH ×2 (08:27→16:57)
[2016-06-17] MEDS: Mometasone/Formoter 200/5 MDI INH SCH ×2 (08:40→21:12)
[2016-06-17] MEDS: Tiotropium CAP.INH* CAP.INH/18 MCG (USE ORDER SET !) INH SCH (08:41)
[2016-06-17] MEDS: Metoprolol Tartrate TAB* 25 MG PO SCH ×2 (08:54→21:55)
[2016-06-17] MEDS: Warfarin TAB(*) 7.5 MG PO SCH (16:56)
[2016-06-18] MEDS: Albuterol 2.5 MG/3 ML NEB.SOL* (0.083%) INH PRN ×4 (02:30→20:50)
[2016-06-18] MEDS: oxyCODONE/Acetamin 5/325 MG* TAB PO PRN ×4 (02:35→16:47)
[2016-06-18] MEDS: Levothyroxine TAB* 100 MCG TAB PO SCH (06:10)
[2016-06-18] MEDS: Metolazone TAB* 5 MG PO SCH (07:49)
[2016-06-18] MEDS: Diltiazem CD CAP* 180 MG PO SCH (08:54)
[2016-06-18] MEDS: DOXYcycline CAP(*) 100 MG PO SCH ×2 (08:55→21:16)
[2016-06-18] MEDS: Spironolactone TAB* 25 MG PO SCH (08:55)
[2016-06-18] MEDS: Allopurinol TAB* 300 MG PO SCH (08:55)
[2016-06-18] MEDS: Metoprolol Tartrate TAB* 25 MG PO SCH ×2 (08:56→21:16)
[2016-06-18] MEDS: predniSONE TAB* 5 MG PO SCH (08:56)
[2016-06-18] MEDS: Furosemide TAB* 40 MG PO SCH ×2 (08:56→16:47)
[2016-06-18] MEDS: Insulin ISOPH/REG 70/30 (*) 1 UNITS UNIT SUBCUT SCH ×2 (08:57→17:55)
[2016-06-18] MEDS: Fluticasone NASAL SPRAY 50MCG* 16 gm SPRAY BTL BOTH NARES SCH (09:03)
[2016-06-18] MEDS: Insulin LISPRO* 1 UNITS UNIT SUBCUT SCH ×4 (09:03→21:18)
[2016-06-18] MEDS: Docusate CAP* 100 MG PO SCH ×3 (09:04→21:20)
[2016-06-18] MEDS: Senna TAB PO SCH ×3 (09:04→21:20)
[2016-06-18] MEDS: Mometasone/Formoter 200/5 MDI INH SCH ×2 (10:08→20:48)
[2016-06-18] MEDS: Tiotropium CAP.INH* CAP.INH/18 MCG (USE ORDER SET !) INH SCH (10:08)
[2016-06-18] MEDS: Warfarin TAB(*) 7.5 MG PO SCH (16:46)
[2016-06-19] MEDS: oxyCODONE/Acetamin 5/325 MG* TAB PO PRN ×5 (00:15→21:12)
[2016-06-19] MEDS: Levothyroxine TAB* 100 MCG TAB PO SCH (05:33)
[2016-06-19] MEDS: Albuterol 2.5 MG/3 ML NEB.SOL* (0.083%) INH PRN ×3 (08:21→21:07)
[2016-06-19] MEDS: Tiotropium CAP.INH* CAP.INH/18 MCG (USE ORDER SET !) INH SCH (08:21)
[2016-06-19] MEDS: Mometasone/Formoter 200/5 MDI INH SCH (08:21)
[2016-06-19] MEDS: Insulin LISPRO* 1 UNITS UNIT SUBCUT SCH ×4 (08:46→21:13)
[2016-06-19] MEDS: Metoprolol Tartrate TAB* 25 MG PO SCH ×2 (08:47→21:23)
[2016-06-19] MEDS: Furosemide TAB* 40 MG PO SCH ×2 (08:47→17:33)
[2016-06-19] MEDS: Docusate CAP* 100 MG PO SCH ×3 (08:47→21:25)
[2016-06-19] MEDS: Diltiazem CD CAP* 180 MG PO SCH (08:47)
[2016-06-19] MEDS: Metolazone TAB* 5 MG PO SCH (08:47)
[2016-06-19] MEDS: DOXYcycline CAP(*) 100 MG PO SCH (08:59)
[2016-06-19] MEDS: Allopurinol TAB* 300 MG PO SCH (08:59)
[2016-06-19] MEDS: predniSONE TAB* 5 MG PO SCH (09:00)
[2016-06-19] MEDS: Insulin ISOPH/REG 70/30 (*) 1 UNITS UNIT SUBCUT SCH ×2 (09:00→17:36)
[2016-06-19] MEDS: Senna TAB PO SCH ×3 (09:18→21:25)
[2016-06-19] MEDS: Fluticasone NASAL SPRAY 50MCG* 16 gm SPRAY BTL BOTH NARES SCH (09:18)
[2016-06-19] MEDS: Spironolactone TAB* 25 MG PO SCH (09:18)
[2016-06-19 09:28] LABS: Hematocrit 38 % (42-52); Hemoglobin 11.9 g/dl (14.0-18.0); Mean Corpuscular HGB Conc 31 g/dl (31-36); Mean Corpuscular Hemoglobin 28 pg (27-31); Mean Corpuscular Volume 89 fL (80-94); Mean Platelet Volume 8 um3 (7.4-10.4); Red Blood Count 4.31 10^6/ul (4.0-5.4); Red Cell Distribution Width 18 % (10.5-15); White Blood Count 10.6 10^3/ul (3.5-10.8)
[2016-06-19 09:43] LABS: BUN/Creatinine Ratio 55.8 (8-20); Calcium 9.4 mg/dL (8.6-10.3); EGFR African American 61.6 (>60); EGFR Non-African American 47.9 (>60)
[2016-06-19] MEDS: Warfarin TAB(*) 7.5 MG PO SCH (17:40)
[2016-06-20] MEDS: Mometasone/Formoter 200/5 MDI INH SCH ×2 (00:54→09:21)
[2016-06-20] MEDS: oxyCODONE/Acetamin 5/325 MG* TAB PO PRN ×2 (02:38→08:34)
[2016-06-20] MEDS: Albuterol 2.5 MG/3 ML NEB.SOL* (0.083%) INH PRN ×2 (02:46→09:14)
[2016-06-20] MEDS: Levothyroxine TAB* 100 MCG TAB PO SCH (06:16)
[2016-06-20] MEDS: Senna TAB PO SCH (07:25)
[2016-06-20] MEDS: Metolazone TAB* 5 MG PO SCH (07:42)
[2016-06-20] MEDS: Insulin LISPRO* 1 UNITS UNIT SUBCUT SCH ×2 (08:21→13:14)
[2016-06-20] MEDS: Allopurinol TAB* 300 MG PO SCH (08:31)
[2016-06-20] MEDS: Diltiazem CD CAP* 180 MG PO SCH (08:32)
[2016-06-20] MEDS: Furosemide TAB* 40 MG PO SCH (08:32)
[2016-06-20] MEDS: predniSONE TAB* 5 MG PO SCH (08:32)
[2016-06-20] MEDS: Spironolactone TAB* 25 MG PO SCH (08:33)
[2016-06-20] MEDS: Docusate CAP* 100 MG PO SCH (08:33)
[2016-06-20] MEDS: Metoprolol Tartrate TAB* 25 MG PO SCH (08:34)
[2016-06-20] MEDS: Insulin ISOPH/REG 70/30 (*) 1 UNITS UNIT SUBCUT SCH (08:35)
[2016-06-20] MEDS: Fluticasone NASAL SPRAY 50MCG* 16 gm SPRAY BTL BOTH NARES SCH (08:42)
[2016-06-20] MEDS: Tiotropium CAP.INH* CAP.INH/18 MCG (USE ORDER SET !) INH SCH (09:23)
[2016-06-20 09:44] VITALS: BP 134/48
[2016-06-20] MEDS ORDERED: Allopurinol TAB* 300 MG PO SCH (10:34)
--- NOTE | 2016-06-20 10:42 | PN ---
Subjective Date of Service: 06/20/16 Interval History: No cough, SOB, wheezing. He thinks he may have been on prednisone continuusly for about the past 6 months. Objective Active Medications: Acetaminophen (Tylenol Tab*) 650 mg PO Q4H PRN PRN Reason: FEVER/PAIN Albuterol (Ventolin 2.5 Mg/3 Ml Neb.Christy*) 2.5 mg INH Q4H PRN PRN Reason: SHORTNESS OF BREATH Last Admin: 06/20/16 09:14 Dose: 2.5 mg Allopurinol (Zyloprim Tab*) 300 mg PO DAILY [facility] Dextrose (D50w Syringe 50 Ml*) 12.5 gm IV PUSH .FOR FS < 60 - SS PRN PRN Reason: FS < 60 Diltiazem HCl (Cardizem Cd Cap*) 360 mg PO DAILY [facility] Last Admin: 06/20/16 08:32 Dose: 360 mg Docusate Sodium (Colace Cap*) 200 mg PO DAILY [facility] Fluticasone Propionate (Flonase Nasal [place] 50mcg*) 2 spray BOTH NARES DAILY [facility] Last Admin: 06/20/16 08:42 Dose: Not Given Furosemide (Lasix Tab*) 100 mg PO 0800,1700 [facility] Last Admin: 06/20/16 08:32 Dose: 100 mg Insulin Human Isoph/Insulin Regular (Humulin 70/30 (*)) 50 units SUBCUT BID AC [facility] Last Admin: 06/20/16 08:35 Dose: 50 units Insulin Human Lispro (Humalog*) 0 units SUBCUT ACHS [facility] PRN Reason: Protocol Last Admin: 06/20/16 08:21 Dose: Not Given Levothyroxine Sodium (Synthroid Tab*) 400 mcg PO DAILY@0600 [facility] Last Admin: 06/20/16 06:16 Dose: 400 mcg Metolazone (Zaroxolyn Tab*) 5 mg PO DAILY [facility] Last Admin: 06/20/16 07:42 Dose: 5 mg Metoprolol Tartrate (Lopressor Tab*) 25 mg PO BID [facility] Last Admin: 06/20/16 08:34 Dose: 25 mg Mometasone Furoate/Formoterol Fumar (Dulera 200/5 Mdi*) 2 puff INH BID [facility] Last Admin: 06/20/16 09:21 Dose: 2 puff Oxycodone/Acetaminophen (Percocet 5/325 Tab*) 1 tab PO Q4H PRN PRN Reason: PAIN Last Admin: 06/20/16 08:34 Dose: 1 tab Pharmacy Profile Note (Coumadin Daily Reminder*) 1 note FOLLOW UP 1700 [facility] Last Admin: 06/19/16 17:40 Dose: 1 note Senna (Senokot Tab*) 1 tab PO BID [facility] Last Admin: 06/20/16 07:25 Dose: Not Given Spironolactone (Aldactone Tab*) 50 mg PO DAILY [facility] Last Admin: 06/20/16 08:33 Dose: 50 mg Tiotropium [place] (Spiriva Cap.Inh*) 1 cap INH DAILY [facility] Last Admin: 06/20/16 09:23 Dose: 1 cap.inh Warfarin Sodium (Coumadin Tab(*)) 7.5 mg PO We@1700 [facility] PRN Reason: Protocol Warfarin Sodium (Coumadin Tab(*)) 15 mg PO SuMoTuThFrSa@1700 [facility] PRN Reason: Protocol Last Admin: 06/19/16 17:40 Dose: 15 mg Vital Signs 06/19/16 06/19/16 06/19/16 11:03 12:06 12:12 Temperature 98.1 F Pulse Rate 76 63 Respiratory 16 18 16 Rate Blood Pressure 152/50 (mmHg) O2 Sat by Pulse 95 97 Oximetry 06/19/16 06/19/16 06/19/16 14:06 17:33 19:33 Temperature Pulse Rate Respiratory 18 20 18 Rate Blood Pressure (mmHg) O2 Sat by Pulse Oximetry 06/19/16 06/19/16 06/19/16 20:00 21:11 21:12 Temperature Pulse Rate 78 Respiratory 20 20 Rate Blood Pressure (mmHg) O2 Sat by Pulse 98 Oximetry 06/19/16 06/20/16 06/20/16 21:21 02:38 02:47 Temperature Pulse Rate 64 Respiratory 16 20 Rate Blood Pressure 151/76 (mmHg) O2 Sat by Pulse 98 Oximetry 06/20/16 06/20/16 06/20/16 07:44 08:00 08:34 Temperature 97.7 F Pulse Rate 71 Respiratory 18 16 18 Rate Blood Pressure 134/48 (mmHg) O2 Sat by Pulse 98 Oximetry 06/20/16 09:28 Temperature Pulse Rate 71 Respiratory 16 Rate Blood Pressure (mmHg) O2 Sat by Pulse 95 Oximetry Oxygen Devices in Use Now: None - 4L Appearance: Alert, in a chair. In good spirits. Looks comfortable. Eyes: No Scleral Icterus Ears/Nose/Mouth/Throat: Clear Oropharnyx, Mucous Membranes Moist Neck: NL Appearance and Movements; NL JVP, No Thyroid Enlargement, Masses Respiratory: Symmetrical Chest Expansion and Respiratory Effort, Clear to Auscultation, Clear to Percussion Cardiovascular: NL Sounds; No Murmurs; No JVD, RRR, No Edema, - Skin: - - 0.8 cm diameter eschar R upper chest with 1-2 cm mild erythema around it. Neurological: Alert and Oriented x 3, NL Sensation Result Diagrams: 06/19/16 09:06 06/19/16 09:06 Assess/Plan/Problems-Billing Assessment: 50 yo M h/o DVT/PE on coumadin, morbid obesity, COPD on 4-5L O2, p/w worsening weight gain, SOB, and LE weakness suspected in setting of acute on chronic CHF exacerbation with stay c/b cellulitis of right chest wall mass/lipoma - Patient Problems (1) Acute on chronic diastolic (congestive) heart failure Current Visit: Yes Status: Acute Priority: High Code(s): I50.33 - ACUTE ON CHRONIC DIASTOLIC (CONGESTIVE) HEART FAILURE SNOMED Code(s): 000721987 Comment: c/w PO Zaroxolyn and Aldactone Daily weights unreliable due to pt's immobility and problems with getting a correct weight Continue to follow I/O (pt has declined removal of santos catheter) (2) Atrial fibrillation Current Visit: Yes Status: Acute Priority: High Code(s): I48.91 - UNSPECIFIED ATRIAL FIBRILLATION SNOMED Code(s): 40054587 Comment: currently in NSR coumadin for CVA prophylaxis. (3) Cellulitis Current Visit: Yes Status: Acute Code(s): L03.90 - CELLULITIS, UNSPECIFIED SNOMED Code(s): 844516100 Comment: cellulitis on R chest, resolved to point no longer needs antibiotics. Doxycycline stopped 04/18. (4) Sleep apnea Current Visit: Yes Status: Acute Code(s): G47.30 - SLEEP APNEA, UNSPECIFIED SNOMED Code(s): 43782887 Comment: using home CPAP machine. (5) Hypothyroid Current Visit: Yes Status: Acute Code(s): E03.9 - HYPOTHYROIDISM, UNSPECIFIED SNOMED Code(s): 66729518 Comment: TSH 1.17 on 06/19. (6) Diabetes Current Visit: Yes Status: Chronic Priority: Medium Code(s): E11.9 - TYPE 2 DIABETES MELLITUS WITHOUT COMPLICATIONS SNOMED Code(s): 56208393 Comment: Continue insulin 70/30 50 U BID cont ISS (7) COPD (chronic obstructive pulmonary disease) Current Visit: Yes Status: Chronic Priority: Medium Code(s): J44.9 - CHRONIC OBSTRUCTIVE PULMONARY DISEASE, UNSPECIFIED SNOMED Code(s): 06602494 Comment: With chronic respiratory failure on 4-5 L 02 at home. Stop prednisone 04/19/17, re-start if clinically significant wheezing noted. (8) Morbid obesity Current Visit: No Status: Chronic Code(s): E66.01 - MORBID (SEVERE) OBESITY DUE TO EXCESS CALORIES SNOMED Code(s): 988317745 Comment: BMI 68.7. (9) CKD (chronic kidney disease) stage 3, GFR 30-59 ml/min Current Visit: No Status: Chronic Priority: Medium Code(s): N18.3 - CHRONIC KIDNEY DISEASE, STAGE 3 (MODERATE) SNOMED Code(s): 513075971 Comment: Continue metolazone 5 mg daily, furosemide 100 mg bid.
[2016-06-20 10:52] LABS: TSH (Thyroid Stimulating Horm) 1.17 mcIU/mL (0.34-5.60)
--- NOTE | 2016-06-20 13:25 | PN ---
Progress Note - Progress Note Note: Time spent on discharge 55 minutes.
--- NOTE | 2016-06-20 14:50 | TRS ---
DISCHARGE SUMMARY: DATE OF ADMISSION: 06/15/16. DATE OF DISCHARGE: 06/20/16. HOSPITAL COURSE: This 50-year-old man presented to the hospital with fluid accumulation. He was felt to have an acute on chronic congestive heart failure exacerbation. He had an echocardiogram on 06/08/16 show ejection fraction of 50-65%. The patient was treated with intravenous and oral diuretics. He was treated for cellulitis of his right upper chest wall. This seemed to be healing well. His doxycycline was discontinued on 06/19/16. He was found to have a probable lipoma in the right axillary area. Although the CT scan findings were not definitive. I discontinued the patient's prednisone on today of transfer. He had been prednisone for a number of months who was quite sure have much. I think this is primarily due to a COPD of wheezing reoccurred. He could be started upon prednisone if chronically indicated. He is might having a very large dose of warfarin. His INR was fairly stable. I would recommend getting an INR every Sunday until stable his INR, on 06/19/16 was 2.2. Weights were difficult. I would try to weigh him at least 2 times a week, with the understanding that i the weight needs to be repeated if it is not consistent. He had an estimated GFR of 47.9, his creatinine was 1.54 on , this has been fairly stable. I do not think his BMP needs to be checked very often unless his weight change significantly. FINAL DIAGNOSES: 1. Acute on chronic diastolic heart failure. 2. Atrial fibrillation. 3. Cellulitis resolved. 4. Sleep apnea. 5. Hypothyroidism. 6. Diabetes. 7. Chronic obstructive pulmonary disease. 8. Morbid obesity. 9. Chronic kidney disease. DISCHARGE MEDICATIONS: 1. Allopurinol 300 mg daily. 2. Docusate 200 mg daily. 3. Senna 1 b.i.d. 4. Tiotropium 1 capsule daily. 5. Albuterol sulfate 2 mcg every 4 hours p.r.n. by inhaler. 6. Spironolactone 50 mg daily. 7. Fluticasone nasal spray 50 mcg 2 sprays both nares daily. 8. Levothyroxine 400 mcg daily. I noticed TSH was normal here. 9. Albuterol by nebulizer 2.5 mg q.4 hours p.r.n. 10. Diltiazem CD 360 mg daily. 11. Metoprolol tartrate 25 mg b.i.d. 12. Metolazone 5 mg daily. 13. Acetaminophen 650 mg every 4 hours. 14. Furosemide 100 mg b.i.d. at 8 a.m. and 5 p.m. 15. Insulin 70/30 50 units twice daily 8 a.m. and 5 p.m. 16. Lispro by sliding scale. 17. Mometasone formoterol 200/5 2 puffs b.i.d. 18. Warfarin 50 mg 6 days a week and 7.5 mg on Sunday. 19. Oxycodone/acetaminophen 5/325 mg 1 every 4 hours p.r.n. [id number]/[facility] #: [id number] [facility]
[2016-06-21] MEDS ORDERED: Docusate CAP* 100 MG PO SCH (09:00)
[2016-06-21] MEDS ORDERED: Warfarin TAB(*) 7.5 MG PO SCH (17:00)
== END 2016-06-20 15:20 | DRG 194 ==
LOC: MED 09:20
PROVIDERS: ADMIT Internal Medicine; ATTEND Internal Medicine
DX: I50.33 Acute on chronic diastolic (congestive) heart failure (principal); L03.313 Cellulitis of chest wall; E11.22 Type 2 diabetes mellitus with diabetic chronic kidney disease; E11.628 Type 2 diabetes mellitus with other skin complications; Z68.44 Body mass index [BMI] 60.0-69.9, adult; I48.91 Unspecified atrial fibrillation; J44.9 Chronic obstructive pulmonary disease, unspecified; E66.01 Morbid (severe) obesity due to excess calories; N18.3 Chronic kidney disease, stage 3 (moderate); G47.33 Obstructive sleep apnea (adult) (pediatric); E03.9 Hypothyroidism, unspecified; Z79.01 Long term (current) use of anticoagulants; Z79.4 Long term (current) use of insulin; Z79.899 Other long term (current) drug therapy; Z79.1 Long term (current) use of non-steroidal anti-inflammatories (NSAID)
CPT/HCPCS: 36415; 80048; 84443; 85025; 85610; 94640; 94760; A9270-GY; J7512

== ENCOUNTER 2016-07-20 23:46 | Inpatient (IN) | payer BC, MEDICARE ==
[2016-07-21] MEDS ORDERED: Morphine INJ* 4 MG/ML 1 ML SYRINGE IV ONE ×2 (00:48→03:42)
[2016-07-21 01:23] LABS: Hematocrit 39 % (42-52); Hemoglobin 12.1 g/dl (14.0-18.0); Mean Corpuscular HGB Conc 31 g/dl (31-36); Mean Corpuscular Hemoglobin 27 pg (27-31); Mean Corpuscular Volume 87 fL (80-94); Mean Platelet Volume 7 um3 (7.4-10.4); Red Blood Count 4.48 10^6/ul (4.0-5.4); Red Cell Distribution Width 17 % (10.5-15); White Blood Count 15.8 10^3/ul (3.5-10.8)
[2016-07-21 01:27] LABS: Add Diff/Slide Review? Slide Review Added; Comments Flag Yes
[2016-07-21 01:38] LABS: Albumin 3.9 g/dL (3.2-5.2); BUN/Creatinine Ratio 40.6 (8-20); C Reactive Protein 14.22 mg/L (< 5.00); Calcium 9.6 mg/dL (8.6-10.3); EGFR African American 61.1 (>60); EGFR Non-African American 47.5 (>60); Globulin 3.5 g/dL (2-4); Total Bilirubin 0.5 mg/dL (0.2-1.0); Total Protein 7.4 g/dL (6.4-8.9)
[2016-07-21 01:56] LABS: Eosinophils % 2 % (0-6); Immature Granulocytes 14 % (0-9); Macrocytosis 1+; Metamyelocytes % 3 % (0-2); Microcytosis 1+; Myelocytes % 1 % (0-1); Neutrophil % 77 % (38-83)
[2016-07-21] MEDS ORDERED: ceFAZolin 1 GM in Dextrose (*) 1 GM/50 ML BAG IVPB ONE (02:23)
[2016-07-21] MEDS ORDERED: Morphine INJ* 2 MG/ML 1 ML SYRINGE IV PRN (05:35)
[2016-07-21] MEDS ORDERED: Ondansetron INJ* 2 MG/ML VIAL IV PRN (05:35)
[2016-07-21] MEDS ORDERED: Acetaminophen TAB* 325 MG PO PRN (05:35)
--- NOTE | 2016-07-21 06:24 | ED ---
Micah, DoctorInna, scribed for Alondra Thompson MD on 07/21/16 at 0417 . HPI Diabetic - HPI Summary HPI Summary: 50 year old male arrived to [facility] c/o pain in the right lower extremity. He reports pain beginning two days ago, and radiating to the back as well as redness up the right leg. He was in [facility] a month ago, and spent three weeks in rehabilitation for bilateral lower extremity fluid build-up. He uses oxygen at home and has PMHx of DM, HTN, HLD, CHF, and Peripheral neuropathy; he regularly sees Dr. Plasencia (PCP). - History Of Current Complaint Chief Complaint: EDExtremityLower Time Seen by Provider: 07/21/16 00:05 Hx Obtained From: Patient Onset/Duration: Gradual Onset Timing: Days Severity Initially: Moderate Severity Currently: Moderate Character: Alert - Allergies/Home Medications Allergies/Adverse Reactions: Allergies Allergy/AdvReac Type Severity Reaction Status Date / Time Tigecycline Allergy Rash Verified 07/21/16 00:29 PMH/Surg Hx/FS Hx/Imm Hx Endocrine/Hematology History: Reports: Hx Diabetes, Hx Thyroid Disease Cardiovascular History: Reports: Hx Atrial Fibrillation, Hx Congestive Heart Failure, Hx Deep Vein Thrombosis, Hx Hypercholesterolemia, Hx Hypertension, Hx Peripheral Vascular Disease, Other Cardiovascular Problems/Disorders - cardiomyopathy, IDDM, CHRONIC RENAL FAILURE, MORBID OBESITY Respiratory History: Reports: Hx Asthma, Hx Chronic Obstructive Pulmonary Disease (COPD) - on 4-5L home O2, Hx Pneumonia, Hx Pulmonary Embolism, Hx Sleep Apnea - compliant with cpap, Other Respiratory Problems/Disorders - SLEEP APNEA History: Reports: Hx Chronic Renal Failure Comment Only: Other Problems/Disorders - CKD Musculoskeletal History: Reports: Hx Arthritis, Hx Back Problems, Hx Gout - Immunization History Date of Tetanus Vaccine: utd Date of Influenza Vaccine: fall 2014 Infectious Disease History: No Infectious Disease History: Reports: Hx of Known/Suspected MRSA Denies: Traveled Outside the [place] in Last 30 Days - Family History Known Family History: Positive: Cardiac Disease, Diabetes - Social History Lives: With Family Alcohol Use: None Hx Substance Use: No Substance Use Type: Reports: None Hx Tobacco Use: Yes Smoking Status (MU): Former Smoker Type: Cigars Review of Systems Negative: Fever Positive: Edema - Edema, bilateral lower extremities, Other - right lower extremity pain Positive: Other - Erythema, bilateral lower extremities All Other Systems Reviewed And Are Negative: Yes Physical Exam Triage Information Reviewed: Yes Vital Signs On Initial Exam: Initial Vitals Temp Pulse Resp BP Pulse Ox 97.5 F 69 16 146/40 99 07/21/16 00:21 07/21/16 00:21 07/21/16 00:21 07/21/16 00:21 07/21/16 00:21 Vital Signs Reviewed: Yes Appearance: Positive: Well-Appearing, No Pain Distress Skin: Positive: Warm - warm toes and thighs, Dry, Erythema @ - Bilateral lower extremities, erythema to mid calves. Worse on Right. Eyes: Positive: EOMI, KASSIDY Neck: Positive: Supple, Nontender Respiratory/Lung Sounds: Positive: Clear to Auscultation, Breath Sounds Present. Negative: Rales, Rhonchi, Wheezes Cardiovascular: Positive: RRR. Negative: Murmur, Rub Abdomen Description: Positive: Nontender, Soft Bowel Sounds: Positive: Present Musculoskeletal: Positive: Strength/ROM Intact, Edema Left - bilateral lower extremity edema to mid-calves, Edema Right - bilateral lower extremity edema to mid-calves Neurological: Positive: Sensory/Motor Intact, Alert, Oriented to Person Place, Time, CN Intact II-III Psychiatric: Positive: Affect/Mood Appropriate Diagnostics - Vital Signs Vital Signs Temp Pulse Resp BP Pulse Ox 07/21/16 00:21 97.5 F 69 16 146/40 99 - Laboratory Lab Results: Lab Results 07/21/16 07/21/16 07/21/16 Range/Units 01:10 01:10 01:10 WBC 15.8 H (3.5-10.8) 10^3/ul RBC 4.48 (4.0-5.4) 10^6/ul Hgb 12.1 L (14.0-18.0) g/dl Hct 39 L (42-52) % MCV 87 (80-94) fL MCH 27 (27-31) pg MCHC 31 (31-36) g/dl RDW 17 H (10.5-15) % Plt Count 353 (150-450) 10^3/ul MPV 7 L (7.4-10.4) um3 Immature Gran % (Auto) 14 H (0-9) % Neut % (Auto) 83.3 H (38-83) % Lymph % (Auto) 6.8 L (25-47) % Millard % (Auto) 5.1 (1-9) % Eos % (Auto) 3.8 (0-6) % Baso % (Auto) 1.0 (0-2) % Absolute Neuts (auto) 13.1 H (1.5-7.7) 10^3/ul Absolute Lymphs (auto) 1.1 (1.0-4.8) 10^3/ul Absolute Monos (auto) 0.8 (0-0.8) 10^3/ul Absolute Eos (auto) 0.6 (0-0.6) 10^3/ul Absolute Basos (auto) 0.2 (0-0.2) 10^3/ul Absolute Nucleated RBC 0.01 10^3/ul Neutrophils % 77 (38-83) % Band Neutrophils % 10 H (0-8) % Lymphocytes % 5 L (25-47) % Monocytes % 2 (0-13) % Eosinophils % 2 (0-6) % Metamyelocytes % 3 H (0-2) % Myelocytes % 1 (0-1) % Nucleated RBC % 0 Normal RBC Morphology Not Reportable Microcytosis 1+ Macrocytosis 1+ INR (Anticoag Therapy) 2.44 H (0.89-1.11) D-Dimer, Quantitative < 200 (Less Than 230) ng/mL Sodium 128 L (133-145) mmol/L Potassium 4.0 (3.5-5.0) mmol/L Chloride 88 L (101-111) mmol/L Carbon Dioxide 34 H (22-32) mmol/L Anion Gap 6 (2-11) mmol/L BUN 63 H (6-24) mg/dL Creatinine 1.55 H (0.67-1.17) mg/dL Est GFR ( Amer) 61.1 (>60) Est GFR (Non-Af Amer) 47.5 (>60) BUN/Creatinine Ratio 40.6 H (8-20) Glucose 157 H (70-100) mg/dL Calcium 9.6 (8.6-10.3) mg/dL Total Bilirubin 0.50 (0.2-1.0) mg/dL AST 22 (13-39) U/L ALT 32 (7-52) U/L Alkaline Phosphatase 109 H (34-104) U/L C-Reactive Protein 14.22 H (< 5.00) mg/L Total Protein 7.4 (6.4-8.9) g/dL Albumin 3.9 (3.2-5.2) g/dL Globulin 3.5 (2-4) g/dL Albumin/Globulin Ratio 1.1 (1-3) Result Diagrams: 07/21/16 01:10 07/21/16 01:10 Lab Statement: Any lab studies that have been ordered have been reviewed, and results considered in the medical decision making process. - EKG 00:54 Cardiac Rate: NL - 68 bpm EKG Rhythm: Sinus Rhythm EKG Interpretation: anterior and lateral Qs EKG Comparison: No Significant Change - from EKG on 06/12/2016 Re-Evaluation - Re-Evaluation First Eval Re-Evaluation Time: 04:10 Change: Unchanged Comment: Discussed plan to admit pt to hospital under care of Dr. Richards ( hospitalist); pt was agreeable. Diabetic Course/Dx - Course Course Of Treatment: 50 yo morbidly obese male with b/l lower extremity edema and right low back pain with leg pain. Pt was concerned about a dvt, but his inr was therapeutic and a d dimer was negative, he did have a substantial wbc and both legs were quite erythematous, pt admitted by Dr. Richards - Diagnoses Provider Diagnoses: Cellulitis, Back pain - Physician Notifications Discussed Care of Patient With: 04:10 - Discussed pt care with Dr. Richards ( hospitalist); he agrees to admit him. Discharge - Discharge Plan Condition: Stable Disposition: ADMITTED TO [facility] Referrals: Lencho Plasencia MD [Primary Care Provider] - The documentation as recorded by the Doctor gillespie Tahera accurately reflects the service I personally performed and the decisions made by me, Alondra Thompson MD.
[2016-07-21] MEDS ORDERED: ceFAZolin 1 GM in Dextrose (*) 1 GM/50 ML BAG IVPB SCH ×2 (08:00→10:00)
--- NOTE | 2016-07-21 08:22 | HP ---
HISTORY AND PHYSICAL: DATE OF ADMISSION: 07/21/16 PRIMARY CARE PROVIDER: Lencho Plasencia MD HEALTH CARE PROXY: and his mother. CODE STATUS: Full. SOURCE OF INFORMATION: History obtained from interview with the patient and review of past medical records. RELIABILITY: Fair. CHIEF COMPLAINT: Right lower extremity pain. HISTORY OF PRESENT ILLNESS: This is a 50-year-old man with past medical history including diabetes, morbid obesity, recent hospital stay from 06/15/16 to 06/20/16 with CHF exacerbation with additional cellulitis of the chest wall, discharged to rehab and then left rehab, and then was discharged from rehab one week prior, started to notice right lower extremity pain two days prior to presentation like a cramp. He placed a heating pack on his right lower extremity; however, because of his peripheral neuropathy, did not notice the burn that was developing with resultant skin break down. He noted that the pain was worse with ambulation. Because of worsening pain, he presented to the emergency room. He denied any recent fevers, chills, night sweats, nausea, or vomiting. He does endorse a cough that is chronic and particularly with dry mouth recently. PAST MEDICAL HISTORY: CHF; atrial fibrillation; sleep apnea, on CPAP; hypothyroidism; insulin-dependent type 2 diabetes mellitus; COPD; obesity; and CKD. PAST SURGICAL HISTORY: None. MEDICATIONS: Reviewed: 1. Percocet 5/325 mg one tablet every 4 hours as needed for pain. 2. Coumadin 15 mg daily. 3. Spiriva one cap inhaled daily. 4. Aldactone 50 mg daily. 5. Senna one tab twice daily. 6. Dulera 200/5 mcg two puffs twice daily. 7. Metoprolol tartrate 25 mg twice daily. 8. Metolazone 5 mg daily. 9. Levothyroxine 400 mcg daily. 10. Insulin lispro home sliding scale, insulin 70/30 fifty units twice daily. 11. Lasix 100 mg twice daily. 12. Fluticasone nasal spray two puffs both nares twice daily. 13. Docusate 200 mg daily. 14. Diltiazem CD 360 mg daily. 15. Allopurinol 300 mg daily. 16. Albuterol sulfate 2 mcg inhaled every 4 hours as needed. 17. Albuterol nebulizer inhaled every 4 hours as needed. 18. Acetaminophen 650 mg every 4 hours as needed. ALLERGIES: TIGECYCLINE. FAMILY HISTORY: Father with CAD, grandmother with CVA, and grandfather with CVA. SOCIAL HISTORY: He smoked cigars for 20 years; quit 15 years prior to admission. No alcohol or illicits. REVIEW OF SYSTEMS: Otherwise all other systems reviewed is negative. PHYSICAL EXAMINATION GENERAL: This is an obese gentleman, sitting up in bed. His legs have been ___ ____, interactive, in no apparent distress. VITAL SIGNS: In the emergency room - blood pressure 146/40, respiratory rate 16 , heart rate 63, and T-max 97.5. HEENT: Oropharynx is clear. Moist mucous membranes. LUNGS: Clear. HEART: Irregular irregular rhythm. ABDOMEN: Obese, soft, nontender, and nondistended. EXTREMITIES: Warm and well perfused. He has tense 2+ lower extremity pitting edema. Skin has bilateral lower extremity chronic venous stasis changes with skin breakdown right lower extremity pretibial region with surrounding erythema and warmth surrounding burn and area of denudation. NEUROLOGIC: He is alert and oriented x3. His cranial nerves are intact. LABORATORY DATA: White blood cell count of 15.8 with 83% neutrophils and 10% bands, hemoglobin 12.1, and platelets 353. INR 2.4. D-dimer less than 200. Sodium 128, bicarb 34, BUN 65, and creatinine 1.55. ASSESSMENT AND PLAN: This is a 50-year-old gentleman with multiple chronic comorbidities, recently discharged from acute rehab, who developed right lower extremity pain, complicated by a burn with suspected associated cellulitis with leukocytosis with bandemia. 1. Cellulitis: Admit for IV antibiotics in the setting of bandemia. The area of cellulitis appears to be surrounding his burn in his pretibial region, otherwise appears chronic venous stasis changes. In the setting of lower extremity pain that seems to have preceded burn, will check right lower extremity venous Doppler to rule out venous thromboembolism despite negative D- dimer. 2. Atrial fibrillation: Continue Coumadin 15 mg daily and AV giovanni blockers. 3. Type 2 diabetes: Continue home insulin regimen with 70/30 as well as insulin sliding scale, fingersticks a.c. and at bedtime. 4. Obstructive sleep apnea: Continue CPAP hospital's equipment. 5. Congestive heart failure: Continue aggressive diuretic regimen. 6. Deconditioning: Continue physical therapy. 7. DVT prophylaxis: Coumadin. CC: Dr. Plasencia* [id number]/[facility] #: [id number] VIGNESH
--- NOTE | 2016-07-21 08:35 | RAD ---
HISTORY: Right lateral calf pain COMPARISONS: February 07, 2012 TECHNIQUE: Multiple transverse and longitudinal ultrasound images were obtained of the right lower extremity from the level of the common femoral vein inferiorly through to the infrapopliteal veins using grayscale, color Doppler, and spectral Doppler imaging with and without compression and with augmentation. Comparison images were obtained of the contralateral common femoral vein. FINDINGS: Evaluation is limited secondary to patient body habitus. This limits evaluation of the right common femoral veins bilaterally, right greater saphenous vein, or profunda femoris vein. The remainder of the venous system of the right lower extremity is compressible throughout its course, with normal flow on color Doppler imaging and normal response to augmentation on spectral Doppler imaging. SOFT TISSUES: Unremarkable. OTHER FINDINGS: None. IMPRESSION: 1. LIMITED STUDY, WITH INCOMPLETE EVALUATION OF THE RIGHT COMMON FEMORAL VEIN, GREATER SAPHENOUS VEIN, AND PROFUNDA FEMORIS VEIN. 2. WITHIN THE LIMITATIONS OF THE STUDY, THERE IS NO RIGHT LOWER EXTREMITY DEEP VEIN THROMBOSIS
[2016-07-21] MEDS: Insulin LISPRO* 1 UNITS UNIT SUBCUT SCH ×4 (09:24→21:34)
[2016-07-21] MEDS: Insulin ISOPH/REG 70/30 (*) 1 UNITS UNIT SUBCUT SCH ×2 (09:25→17:56)
[2016-07-21] MEDS: Docusate CAP* 100 MG PO SCH (09:27)
[2016-07-21] MEDS: Diltiazem CD CAP* 180 MG PO SCH (09:27)
[2016-07-21] MEDS: Furosemide TAB* 40 MG PO SCH ×2 (09:27→17:17)
[2016-07-21] MEDS: Spironolactone TAB* 25 MG PO SCH (09:28)
[2016-07-21] MEDS: Metoprolol Tartrate TAB* 25 MG PO SCH ×2 (09:28→21:21)
[2016-07-21] MEDS: Allopurinol TAB* 300 MG PO SCH (09:28)
[2016-07-21] MEDS: Metolazone TAB* 5 MG PO SCH (09:28)
[2016-07-21] MEDS: Senna TAB PO SCH ×2 (09:28→21:21)
[2016-07-21] MEDS: Levothyroxine TAB* 100 MCG TAB PO SCH (09:28)
[2016-07-21] MEDS ORDERED: Spiriva Inhaler DEVICE* 1 EACH DEVICE INH ONE (10:00)
[2016-07-21] MEDS: ceFAZolin 1 GM in Dextrose (*) 1 GM/50 ML BAG IVPB SCH ×3 (10:25→21:23)
[2016-07-21] MEDS: Fluticasone NASAL SPRAY 50MCG* 16 gm SPRAY BTL BOTH NARES SCH (10:27)
[2016-07-21] MEDS: Mometasone/Formoter 200/5 MDI INH SCH ×3 (10:30→21:45)
[2016-07-21] MEDS ORDERED: Morphine INJ* 4 MG/ML 1 ML SYRINGE IV PRN (10:35)
[2016-07-21] MEDS: Tiotropium CAP.INH* CAP.INH/18 MCG INH SCH (10:54)
[2016-07-21] MEDS: Albuterol 2.5 MG/3 ML NEB.SOL* (0.083%) INH PRN ×3 (10:55→21:14)
[2016-07-21] MEDS: oxyCODONE TAB* 5 MG TAB PO PRN ×3 (13:02→21:21)
[2016-07-21] MEDS: Warfarin TAB(*) 7.5 MG PO SCH (17:18)
[2016-07-22] MEDS: oxyCODONE TAB* 5 MG TAB PO PRN ×5 (02:45→22:07)
[2016-07-22] MEDS: ceFAZolin 1 GM in Dextrose (*) 1 GM/50 ML BAG IVPB SCH ×4 (04:18→23:22)
[2016-07-22] MEDS: Levothyroxine TAB* 100 MCG TAB PO SCH (08:16)
[2016-07-22] MEDS: Metolazone TAB* 5 MG PO SCH (08:18)
[2016-07-22] MEDS: Diltiazem CD CAP* 180 MG PO SCH (08:19)
[2016-07-22] MEDS: Senna TAB PO SCH ×2 (08:19→20:30)
[2016-07-22] MEDS: Spironolactone TAB* 25 MG PO SCH (08:20)
[2016-07-22] MEDS: Metoprolol Tartrate TAB* 25 MG PO SCH ×2 (08:20→20:30)
[2016-07-22] MEDS: Allopurinol TAB* 300 MG PO SCH (08:21)
[2016-07-22] MEDS: Docusate CAP* 100 MG PO SCH (08:21)
[2016-07-22] MEDS: Insulin ISOPH/REG 70/30 (*) 1 UNITS UNIT SUBCUT SCH ×2 (09:04→17:20)
[2016-07-22] MEDS: Insulin LISPRO* 1 UNITS UNIT SUBCUT SCH ×4 (09:04→20:31)
[2016-07-22] MEDS: Fluticasone NASAL SPRAY 50MCG* 16 gm SPRAY BTL BOTH NARES SCH (09:05)
[2016-07-22] MEDS: Furosemide TAB* 40 MG PO SCH ×2 (09:07→17:18)
[2016-07-22] MEDS: Mometasone/Formoter 200/5 MDI INH SCH ×2 (09:09→20:30)
[2016-07-22] MEDS: Albuterol 2.5 MG/3 ML NEB.SOL* (0.083%) INH PRN ×2 (09:09→15:47)
[2016-07-22] MEDS: Tiotropium CAP.INH* CAP.INH/18 MCG INH SCH (09:09)
--- NOTE | 2016-07-22 13:15 | PN ---
Subjective Date of Service: 07/22/16 Interval History: Patient thinks R leg about the same appearance as yesterday. The open wound stings. the original pain in his R leg for which he put the heated bag of rice id much better, no obvious cause to pt or to me. No new c/o. Objective Active Medications: Acetaminophen (Tylenol Tab*) 650 mg PO Q4H PRN PRN Reason: FEVER/PAIN Albuterol (Ventolin 2.5 Mg/3 Ml Neb.Christy*) 2.5 mg INH Q4H PRN PRN Reason: SHORTNESS OF BREATH Last Admin: 07/22/16 09:09 Dose: 2.5 mg Allopurinol (Zyloprim Tab*) 300 mg PO DAILY [facility] Last Admin: 07/22/16 08:21 Dose: 300 mg Diltiazem HCl (Cardizem Cd Cap*) 360 mg PO DAILY [facility] Last Admin: 07/22/16 08:19 Dose: 360 mg Docusate Sodium (Colace Cap*) 200 mg PO DAILY [facility] Last Admin: 07/22/16 08:21 Dose: 200 mg Fluticasone Propionate (Flonase Nasal [place] 50mcg*) 2 spray BOTH NARES DAILY [facility] Last Admin: 07/22/16 09:05 Dose: 2 spray Furosemide (Lasix Tab*) 100 mg PO 0800,1700 [facility] Last Admin: 07/22/16 09:07 Dose: 100 mg Cefazolin Sodium/Dextrose (Kefzol 1 Gm In Dextrose Duplex (*)) 1 gm in 50 mls @ 200 mls/hr IVPB Q6H [facility] Last Admin: 07/22/16 10:27 Dose: 200 mls/hr Insulin Human Isoph/Insulin Regular (Humulin 70/30 (*)) 50 units SUBCUT BID AC [facility] Last Admin: 07/22/16 09:04 Dose: 50 units Insulin Human Lispro (Humalog*) 0 units SUBCUT ACHS [facility] PRN Reason: Protocol Last Admin: 07/22/16 12:27 Dose: 3 units Levothyroxine Sodium (Synthroid Tab*) 400 mcg PO QAM [facility] Last Admin: 07/22/16 08:16 Dose: 400 mcg Metolazone (Zaroxolyn Tab*) 5 mg PO DAILY [facility] Last Admin: 07/22/16 08:18 Dose: 5 mg Metoprolol Tartrate (Lopressor Tab*) 25 mg PO BID [facility] Last Admin: 07/22/16 08:20 Dose: 25 mg Mometasone Furoate/Formoterol Fumar (Dulera 200/5 Mdi*) 2 puff INH BID [facility] Last Admin: 07/22/16 09:09 Dose: 2 puff Ondansetron HCl (Zofran Inj*) 4 mg IV Q4H PRN PRN Reason: NAUSEA/VOMITING Oxycodone HCl (Roxycodone Tab*) 15 mg PO Q4H PRN PRN Reason: PAIN - MODERATE TO SEVERE Last Admin: 07/22/16 12:26 Dose: 15 mg Senna (Senokot Tab*) 1 tab PO BID [facility] Last Admin: 07/22/16 08:19 Dose: 1 tab Spironolactone (Aldactone Tab*) 50 mg PO DAILY [facility] Last Admin: 07/22/16 08:20 Dose: 50 mg Tiotropium [place] (Spiriva Cap.Inh*) 1 cap INH DAILY [facility] Last Admin: 07/22/16 09:09 Dose: 1 cap Warfarin Sodium (Coumadin Tab(*)) 15 mg PO 1700 [facility] PRN Reason: Protocol Last Admin: 07/21/16 17:18 Dose: 15 mg Vital Signs 07/21/16 07/21/16 07/21/16 15:02 15:20 16:11 Temperature 97.9 F Pulse Rate 77 74 Respiratory 20 16 17 Rate Blood Pressure 139/59 (mmHg) O2 Sat by Pulse 98 99 Oximetry 07/21/16 07/21/16 07/21/16 17:19 19:19 19:38 Temperature Pulse Rate Respiratory 20 20 18 Rate Blood Pressure (mmHg) O2 Sat by Pulse Oximetry 07/21/16 07/21/16 07/21/16 21:15 21:21 23:16 Temperature 97.7 F Pulse Rate 74 66 Respiratory 18 20 16 Rate Blood Pressure 179/143 (mmHg) O2 Sat by Pulse 98 100 Oximetry 07/21/16 07/22/16 07/22/16 23:21 02:45 04:45 Temperature Pulse Rate Respiratory 18 18 18 Rate Blood Pressure (mmHg) O2 Sat by Pulse Oximetry 07/22/16 07/22/16 07/22/16 05:30 05:33 07:25 Temperature Pulse Rate 59 Respiratory 18 12 Rate Blood Pressure 149/47 (mmHg) O2 Sat by Pulse Oximetry 07/22/16 07/22/16 07/22/16 07:39 09:14 12:26 Temperature 97.5 F Pulse Rate 71 74 Respiratory 18 16 14 Rate Blood Pressure 181/54 (mmHg) O2 Sat by Pulse 98 97 Oximetry Oxygen Devices in Use Now: Nasal Cannula Appearance: Alert, sitting on the edge of his bed. In good spirits. Looks comfortable. Eyes: No Scleral Icterus Ears/Nose/Mouth/Throat: Clear Oropharnyx, Mucous Membranes Moist Neck: NL Appearance and Movements; NL JVP, No Thyroid Enlargement, Masses Respiratory: Symmetrical Chest Expansion and Respiratory Effort, Clear to Auscultation, Clear to Percussion Cardiovascular: NL Sounds; No Murmurs; No JVD, RRR, No Edema, - Extremities: No Clubbing, Cyanosis, - - 1-2+ EDEMA bl Skin: No Nodules or Sclerosis, - - R pretibial area 3 x 6 cm open area with red base, looks dry. Proximal to this is 3 x 6 cm area of sloughin pale skin. R lower leg diffusely pink about 50% of anterior aspect. Neurological: Alert and Oriented x 3, NL Sensation Result Diagrams: 07/21/16 01:10 07/21/16 01:10 Additional Lab and Data: Lab Results 07/21/16 07/21/16 07/21/16 Range/Units 01:10 01:10 01:10 WBC 15.8 H (3.5-10.8) 10^3/ul RBC 4.48 (4.0-5.4) 10^6/ul Hgb 12.1 L (14.0-18.0) g/dl Hct 39 L (42-52) % MCV 87 (80-94) fL MCH 27 (27-31) pg MCHC 31 (31-36) g/dl RDW 17 H (10.5-15) % Plt Count 353 (150-450) 10^3/ul MPV 7 L (7.4-10.4) um3 Immature Gran % (Auto) 14 H (0-9) % Neut % (Auto) 83.3 H (38-83) % Lymph % (Auto) 6.8 L (25-47) % [place] % (Auto) 5.1 (1-9) % Eos % (Auto) 3.8 (0-6) % Baso % (Auto) 1.0 (0-2) % Absolute Neuts (auto) 13.1 H (1.5-7.7) 10^3/ul Absolute Lymphs (auto) 1.1 (1.0-4.8) 10^3/ul Absolute Monos (auto) 0.8 (0-0.8) 10^3/ul Absolute Eos (auto) 0.6 (0-0.6) 10^3/ul Absolute Basos (auto) 0.2 (0-0.2) 10^3/ul Absolute Nucleated RBC 0.01 10^3/ul Neutrophils % 77 (38-83) % Band Neutrophils % 10 H (0-8) % Lymphocytes % 5 L (25-47) % Monocytes % 2 (0-13) % Eosinophils % 2 (0-6) % Metamyelocytes % 3 H (0-2) % Myelocytes % 1 (0-1) % Nucleated RBC % 0 Normal RBC Morphology Not Reportable Microcytosis 1+ Macrocytosis 1+ INR (Anticoag Therapy) 2.44 H (0.89-1.11) D-Dimer, Quantitative < 200 (Less Than 230) ng/mL Sodium 128 L (133-145) mmol/L Potassium 4.0 (3.5-5.0) mmol/L Chloride 88 L (101-111) mmol/L Carbon Dioxide 34 H (22-32) mmol/L Anion Gap 6 (2-11) mmol/L BUN 63 H (6-24) mg/dL Creatinine 1.55 H (0.67-1.17) mg/dL Est GFR ( Amer) 61.1 (>60) Est GFR (Non-Af Amer) 47.5 (>60) BUN/Creatinine Ratio 40.6 H (8-20) Glucose 157 H (70-100) mg/dL Calcium 9.6 (8.6-10.3) mg/dL Total Bilirubin 0.50 (0.2-1.0) mg/dL AST 22 (13-39) U/L ALT 32 (7-52) U/L Alkaline Phosphatase 109 H (34-104) U/L C-Reactive Protein 14.22 H (< 5.00) mg/L Total Protein 7.4 (6.4-8.9) g/dL Albumin 3.9 (3.2-5.2) g/dL Globulin 3.5 (2-4) g/dL Albumin/Globulin Ratio 1.1 (1-3) Microbiology and Other Data: Microbiology 07/21/16 07:45 Nasal Screen MRSA (PCR)(JEAN CARLOS) - Final Nasal Mrsa Positive Assess/Plan/Problems-Billing Assessment: - Patient Problems (1) Cellulitis and abscess of leg Current Visit: Yes Status: Acute Code(s): L02.419 - CUTANEOUS ABSCESS OF LIMB, UNSPECIFIED; L03.119 - CELLULITIS OF UNSPECIFIED PART OF LIMB SNOMED Code(s): 269649606 Comment: No abcess. Continue cefazolin. Medi-honey dressing for open area. (2) Chronic edema Current Visit: Yes Status: Acute Code(s): R60.9 - EDEMA, UNSPECIFIED SNOMED Code(s): 461222774 Comment: Neg balance 3089 yesterday. Pt can drink large volumes. Monitor I& O's, no change in diuretcis 07/22. (3) Diabetes Current Visit: No Status: Chronic Priority: Medium Code(s): E11.9 - TYPE 2 DIABETES MELLITUS WITHOUT COMPLICATIONS SNOMED Code(s): 17658771 Comment: Continue insulin 70/30 50 U BID cont ISS
[2016-07-22] MEDS: Warfarin TAB(*) 7.5 MG PO SCH (17:19)
[2016-07-22 22:51] LABS: Rapid HIV INT CONT QC Line Present; Rapid HIV Kit Lot# F209005
[2016-07-23] MEDS: oxyCODONE TAB* 5 MG TAB PO PRN ×4 (03:46→18:09)
[2016-07-23] MEDS: ceFAZolin 1 GM in Dextrose (*) 1 GM/50 ML BAG IVPB SCH ×4 (03:47→21:55)
[2016-07-23 06:22] LABS: Hematocrit 37 % (42-52); Hemoglobin 11.4 g/dl (14.0-18.0); Mean Corpuscular HGB Conc 31 g/dl (31-36); Mean Corpuscular Hemoglobin 27 pg (27-31); Mean Corpuscular Volume 88 fL (80-94); Mean Platelet Volume 8 um3 (7.4-10.4); Red Blood Count 4.19 10^6/ul (4.0-5.4); Red Cell Distribution Width 17 % (10.5-15); White Blood Count 13.1 10^3/ul (3.5-10.8)
[2016-07-23 06:27] LABS: Add Diff/Slide Review? Slide Review Added; Comments Flag Yes
[2016-07-23 06:51] LABS: Eosinophils % 5 % (0-6); Immature Granulocytes 9 % (0-9); Metamyelocytes % 5 % (0-2); Myelocytes % 1 % (0-1); Neutrophil % 77 % (38-83); Reactive Lymph % 1 % (0-6)
[2016-07-23 06:52] LABS: Basophilic Stippling 1+; Macrocytosis 1+; Microcytosis 1+; Toxic Granulation 1+
[2016-07-23] MEDS: Diltiazem CD CAP* 180 MG PO SCH (07:54)
[2016-07-23] MEDS: Metolazone TAB* 5 MG PO SCH (07:54)
[2016-07-23] MEDS: Metoprolol Tartrate TAB* 25 MG PO SCH ×2 (07:55→21:37)
[2016-07-23] MEDS: Allopurinol TAB* 300 MG PO SCH (07:55)
[2016-07-23] MEDS: Levothyroxine TAB* 100 MCG TAB PO SCH (07:55)
[2016-07-23] MEDS: Docusate CAP* 100 MG PO SCH (07:56)
[2016-07-23] MEDS: Senna TAB PO SCH ×2 (07:57→21:37)
[2016-07-23] MEDS: Spironolactone TAB* 25 MG PO SCH (07:57)
[2016-07-23] MEDS: Insulin LISPRO* 1 UNITS UNIT SUBCUT SCH ×4 (08:54→21:54)
[2016-07-23] MEDS: Fluticasone NASAL SPRAY 50MCG* 16 gm SPRAY BTL BOTH NARES SCH (08:55)
[2016-07-23] MEDS: Insulin ISOPH/REG 70/30 (*) 1 UNITS UNIT SUBCUT SCH ×2 (08:55→18:26)
[2016-07-23] MEDS: Furosemide TAB* 40 MG PO SCH ×2 (08:56→18:08)
--- NOTE | 2016-07-23 09:31 | PN ---
Subjective Date of Service: 07/23/16 Interval History: No new c/o. Pt states he has 80 mg furosemitde tabs at home, takes 2 in AM and 1 in PM but sometimes skips the PM dose. He states he takes metolazone 5 mg daily. He denies any difficulty voiding, states he voids every 20 minutes after getting a diuretic. He agrees that he drinks a lot of liquids. Objective Active Medications: Acetaminophen (Tylenol Tab*) 650 mg PO Q4H PRN PRN Reason: FEVER/PAIN Albuterol (Ventolin 2.5 Mg/3 Ml Neb.Christy*) 2.5 mg INH Q4H PRN PRN Reason: SHORTNESS OF BREATH Last Admin: 07/22/16 15:47 Dose: 2.5 mg Allopurinol (Zyloprim Tab*) 300 mg PO DAILY [facility] Last Admin: 07/23/16 07:55 Dose: 300 mg Diltiazem HCl (Cardizem Cd Cap*) 360 mg PO DAILY [facility] Last Admin: 07/23/16 07:54 Dose: 360 mg Docusate Sodium (Colace Cap*) 200 mg PO DAILY [facility] Last Admin: 07/23/16 07:56 Dose: 200 mg Fluticasone Propionate (Flonase Nasal [place] 50mcg*) 2 spray BOTH NARES DAILY [facility] Last Admin: 07/23/16 08:55 Dose: 2 spray Furosemide (Lasix Tab*) 100 mg PO 0800,1700 [facility] Last Admin: 07/23/16 08:56 Dose: 100 mg Cefazolin Sodium/Dextrose (Kefzol 1 Gm In Dextrose Duplex (*)) 1 gm in 50 mls @ 200 mls/hr IVPB Q6H [facility] Last Admin: 07/23/16 03:47 Dose: 200 mls/hr Insulin Human Isoph/Insulin Regular (Humulin 70/30 (*)) 50 units SUBCUT BID AC [facility] Last Admin: 07/23/16 08:55 Dose: 50 units Insulin Human Lispro (Humalog*) 0 units SUBCUT ACHS [facility] PRN Reason: Protocol Last Admin: 07/23/16 08:54 Dose: 2 units Levothyroxine Sodium (Synthroid Tab*) 400 mcg PO QAM [facility] Last Admin: 07/23/16 07:55 Dose: 400 mcg Metolazone (Zaroxolyn Tab*) 5 mg PO DAILY [facility] Last Admin: 07/23/16 07:54 Dose: 5 mg Metoprolol Tartrate (Lopressor Tab*) 12.5 mg PO BID [facility] Mometasone Furoate/Formoterol Fumar (Dulera 200/5 Mdi*) 2 puff INH BID [facility] Last Admin: 07/22/16 20:30 Dose: 2 puff Ondansetron HCl (Zofran Inj*) 4 mg IV Q4H PRN PRN Reason: NAUSEA/VOMITING Oxycodone HCl (Roxycodone Tab*) 15 mg PO Q4H PRN PRN Reason: PAIN - MODERATE TO SEVERE Last Admin: 07/23/16 07:52 Dose: 15 mg Senna (Senokot Tab*) 1 tab PO BID [facility] Last Admin: 07/23/16 07:57 Dose: 1 tab Spironolactone (Aldactone Tab*) 50 mg PO DAILY [facility] Last Admin: 07/23/16 07:57 Dose: 50 mg Tiotropium [place] (Spiriva Cap.Inh*) 1 cap INH DAILY [facility] Last Admin: 07/22/16 09:09 Dose: 1 cap Warfarin Sodium (Coumadin Tab(*)) 15 mg PO 1700 [facility] PRN Reason: Protocol Last Admin: 07/22/16 17:19 Dose: 15 mg Vital Signs 07/22/16 07/22/16 07/22/16 19:35 20:00 21:18 Temperature 97.9 F Pulse Rate 72 Respiratory 20 16 18 Rate Blood Pressure 132/30 (mmHg) O2 Sat by Pulse 99 Oximetry 07/22/16 07/22/16 07/23/16 22:07 23:00 00:07 Temperature 97.0 F Pulse Rate Respiratory 18 16 20 Rate Blood Pressure 135/40 (mmHg) O2 Sat by Pulse 100 Oximetry 07/23/16 07/23/16 07/23/16 02:34 03:46 05:46 Temperature 98.2 F Pulse Rate 60 Respiratory 14 20 16 Rate Blood Pressure 118/28 (mmHg) O2 Sat by Pulse 99 Oximetry 07/23/16 07/23/16 07:50 07:52 Temperature 97.7 F Pulse Rate 71 Respiratory 18 14 Rate Blood Pressure 152/50 (mmHg) O2 Sat by Pulse 98 Oximetry Oxygen Devices in Use Now: Nasal Cannula Appearance: Alert, sitting on the dge of this bed. In good spirits. Looks comfortable. Eyes: No Scleral Icterus Ears/Nose/Mouth/Throat: Clear Oropharnyx, Mucous Membranes Moist Neck: NL Appearance and Movements; NL JVP, No Thyroid Enlargement, Masses Extremities: No Clubbing, Cyanosis - 2+ edema BL. Skin: No Nodules or Sclerosis, - - R leg wound wrapped. Neurological: Alert and Oriented x 3, NL Sensation Result Diagrams: 07/23/16 05:51 07/21/16 01:10 Additional Lab and Data: Lab Results 07/21/16 07/21/16 07/21/16 Range/Units 01:10 01:10 01:10 WBC 15.8 H (3.5-10.8) 10^3/ul RBC 4.48 (4.0-5.4) 10^6/ul Hgb 12.1 L (14.0-18.0) g/dl Hct 39 L (42-52) % MCV 87 (80-94) fL MCH 27 (27-31) pg MCHC 31 (31-36) g/dl RDW 17 H (10.5-15) % Plt Count 353 (150-450) 10^3/ul MPV 7 L (7.4-10.4) um3 Immature Gran % (Auto) 14 H (0-9) % Neut % (Auto) 83.3 H (38-83) % Lymph % (Auto) 6.8 L (25-47) % [place] % (Auto) 5.1 (1-9) % Eos % (Auto) 3.8 (0-6) % Baso % (Auto) 1.0 (0-2) % Absolute Neuts (auto) 13.1 H (1.5-7.7) 10^3/ul Absolute Lymphs (auto) 1.1 (1.0-4.8) 10^3/ul Absolute Monos (auto) 0.8 (0-0.8) 10^3/ul Absolute Eos (auto) 0.6 (0-0.6) 10^3/ul Absolute Basos (auto) 0.2 (0-0.2) 10^3/ul Absolute Nucleated RBC 0.01 10^3/ul Neutrophils % 77 (38-83) % Band Neutrophils % 10 H (0-8) % Lymphocytes % 5 L (25-47) % Monocytes % 2 (0-13) % Eosinophils % 2 (0-6) % Metamyelocytes % 3 H (0-2) % Myelocytes % 1 (0-1) % Nucleated RBC % 0 Normal RBC Morphology Not Reportable Microcytosis 1+ Macrocytosis 1+ INR (Anticoag Therapy) 2.44 H (0.89-1.11) D-Dimer, Quantitative < 200 (Less Than 230) ng/mL Sodium 128 L (133-145) mmol/L Potassium 4.0 (3.5-5.0) mmol/L Chloride 88 L (101-111) mmol/L Carbon Dioxide 34 H (22-32) mmol/L Anion Gap 6 (2-11) mmol/L BUN 63 H (6-24) mg/dL Creatinine 1.55 H (0.67-1.17) mg/dL Est GFR ( Amer) 61.1 (>60) Est GFR (Non-Af Amer) 47.5 (>60) BUN/Creatinine Ratio 40.6 H (8-20) Glucose 157 H (70-100) mg/dL Calcium 9.6 (8.6-10.3) mg/dL Total Bilirubin 0.50 (0.2-1.0) mg/dL AST 22 (13-39) U/L ALT 32 (7-52) U/L Alkaline Phosphatase 109 H (34-104) U/L C-Reactive Protein 14.22 H (< 5.00) mg/L Total Protein 7.4 (6.4-8.9) g/dL Albumin 3.9 (3.2-5.2) g/dL Globulin 3.5 (2-4) g/dL Albumin/Globulin Ratio 1.1 (1-3) Microbiology and Other Data: Microbiology 07/21/16 07:45 Nasal Screen MRSA (PCR)(JEAN CARLOS) - Final Nasal Mrsa Positive Assess/Plan/Problems-Billing Assessment: - Patient Problems (1) Cellulitis and abscess of leg Current Visit: Yes Status: Acute Code(s): L02.419 - CUTANEOUS ABSCESS OF LIMB, UNSPECIFIED; L03.119 - CELLULITIS OF UNSPECIFIED PART OF LIMB SNOMED Code(s): 600130260 Comment: No abcess. Continue cefazolin. Medi-honey dressing for open area. COnsider discharge on oral antibiotic 07/24. (2) Chronic edema Current Visit: Yes Status: Acute Code(s): R60.9 - EDEMA, UNSPECIFIED SNOMED Code(s): 967097025 Comment: Balance minus 3089 on 07/21, minus 1870 on07/22. Pt can drink large volumes. Not clear why he is on similar diuretic regimen as at home and is now diuresing briskly. Needs close outpt fup. BMP 07/24. (3) Diabetes Current Visit: No Status: Chronic Priority: Medium Code(s): E11.9 - TYPE 2 DIABETES MELLITUS WITHOUT COMPLICATIONS SNOMED Code(s): 51230252 Comment: Continue insulin 70/30 50 U BID cont ISS (4) Atrial fibrillation Current Visit: No Status: Acute Priority: High Code(s): I48.91 - UNSPECIFIED ATRIAL FIBRILLATION SNOMED Code(s): 92839544 Comment: Continue warfarin for CVA prophylaxis. INR 07/24. Continue diltiazem, reduce metoprolol to 12.5 mg bid start PM 07/23 due to c/o dizziness, diastolic as low as 30, HR hihest 77 for entire admission so far. (5) Sleep apnea Current Visit: No Status: Acute Code(s): G47.30 - SLEEP APNEA, UNSPECIFIED SNOMED Code(s): 61244696 Comment: using home CPAP machine. (6) CKD (chronic kidney disease) stage 3, GFR 30-59 ml/min Current Visit: No Status: Chronic Priority: Medium Code(s): N18.3 - CHRONIC KIDNEY DISEASE, STAGE 3 (MODERATE) SNOMED Code(s): 139194973 Comment: Stable. (7) Morbid obesity Current Visit: No Status: Chronic Code(s): E66.01 - MORBID (SEVERE) OBESITY DUE TO EXCESS CALORIES SNOMED Code(s): 614714513 Comment: BMI 63.6.
[2016-07-23] MEDS: Albuterol 2.5 MG/3 ML NEB.SOL* (0.083%) INH PRN ×2 (09:46→16:28)
[2016-07-23] MEDS: Tiotropium CAP.INH* CAP.INH/18 MCG INH SCH (09:46)
[2016-07-23] MEDS: Mometasone/Formoter 200/5 MDI INH SCH ×2 (09:46→20:13)
[2016-07-23] MEDS: Warfarin TAB(*) 7.5 MG PO SCH (18:10)
[2016-07-24] MEDS: ceFAZolin 1 GM in Dextrose (*) 1 GM/50 ML BAG IVPB SCH ×2 (04:00→10:51)
[2016-07-24] MEDS: oxyCODONE TAB* 5 MG TAB PO PRN ×4 (04:08→21:14)
[2016-07-24 07:08] LABS: Calcium 9.6 mg/dL (8.6-10.3); EGFR African American 48.9 (>60)
[2016-07-24] MEDS: Insulin ISOPH/REG 70/30 (*) 1 UNITS UNIT SUBCUT SCH ×2 (08:20→17:34)
[2016-07-24] MEDS: Insulin LISPRO* 1 UNITS UNIT SUBCUT SCH ×4 (08:21→21:27)
[2016-07-24] MEDS: Metoprolol Tartrate TAB* 25 MG PO SCH ×2 (08:22→21:14)
[2016-07-24] MEDS: Spironolactone TAB* 25 MG PO SCH (08:22)
[2016-07-24] MEDS: Senna TAB PO SCH ×2 (08:22→21:14)
[2016-07-24] MEDS: Levothyroxine TAB* 100 MCG TAB PO SCH (08:23)
[2016-07-24] MEDS: Metolazone TAB* 5 MG PO SCH (08:23)
[2016-07-24] MEDS: Allopurinol TAB* 300 MG PO SCH (08:25)
[2016-07-24] MEDS: Furosemide TAB* 40 MG PO SCH (08:26)
[2016-07-24] MEDS: Docusate CAP* 100 MG PO SCH (08:27)
[2016-07-24] MEDS: Diltiazem CD CAP* 180 MG PO SCH (08:27)
[2016-07-24] MEDS: Fluticasone NASAL SPRAY 50MCG* 16 gm SPRAY BTL BOTH NARES SCH (08:31)
[2016-07-24] MEDS: Albuterol 2.5 MG/3 ML NEB.SOL* (0.083%) INH PRN ×2 (09:17→14:06)
[2016-07-24] MEDS: Mometasone/Formoter 200/5 MDI INH SCH ×2 (09:27→20:49)
[2016-07-24] MEDS: Tiotropium CAP.INH* CAP.INH/18 MCG INH SCH (09:27)
[2016-07-24] MEDS ORDERED: Vancomycin per Pharmacy* NOTE FOLLOW UP PRN (15:16)
--- NOTE | 2016-07-24 15:19 | PN ---
Subjective Date of Service: 07/24/16 Interval History: Seen and examined Feels legs are less swollen and less painful but that wound on LLE is worsening collecting urine Objective Active Medications: Acetaminophen (Tylenol Tab*) 650 mg PO Q4H PRN PRN Reason: FEVER/PAIN Albuterol (Ventolin 2.5 Mg/3 Ml Neb.Christy*) 2.5 mg INH Q4H PRN PRN Reason: SHORTNESS OF BREATH Last Admin: 07/24/16 14:06 Dose: 2.5 mg Allopurinol (Zyloprim Tab*) 300 mg PO DAILY [facility] Last Admin: 07/24/16 08:25 Dose: 300 mg Diltiazem HCl (Cardizem Cd Cap*) 360 mg PO DAILY [facility] Last Admin: 07/24/16 08:27 Dose: 360 mg Docusate Sodium (Colace Cap*) 200 mg PO DAILY [facility] Last Admin: 07/24/16 08:27 Dose: 200 mg Fluticasone Propionate (Flonase Nasal [place] 50mcg*) 2 spray BOTH NARES DAILY [facility] Last Admin: 07/24/16 08:31 Dose: 2 spray Furosemide (Lasix Tab*) 60 mg PO 0800,1700 [facility] Cefazolin Sodium/Dextrose (Kefzol 1 Gm In Dextrose Duplex (*)) 1 gm in 50 mls @ 200 mls/hr IVPB Q6H [facility] Last Admin: 07/24/16 10:51 Dose: 200 mls/hr Vancomycin HCl 2,000 mg/ (Sodium Chloride) 500 mls @ 250 mls/hr IVPB ONCE ONE PRN Reason: Protocol Stop: 07/24/16 17:59 Insulin Human Isoph/Insulin Regular (Humulin 70/30 (*)) 50 units SUBCUT BID AC [facility] Last Admin: 07/24/16 08:20 Dose: 50 units Insulin Human Lispro (Humalog*) 0 units SUBCUT ACHS [facility] PRN Reason: Protocol Last Admin: 07/24/16 12:54 Dose: 6 units Levothyroxine Sodium (Synthroid Tab*) 400 mcg PO QAM [facility] Last Admin: 07/24/16 08:23 Dose: 400 mcg Metolazone (Zaroxolyn Tab*) 5 mg PO DAILY [facility] Last Admin: 07/24/16 08:23 Dose: 5 mg Metoprolol Tartrate (Lopressor Tab*) 12.5 mg PO BID [facility] Last Admin: 07/24/16 08:22 Dose: 12.5 mg Mometasone Furoate/Formoterol Fumar (Dulera 200/5 Mdi*) 2 puff INH BID [facility] Last Admin: 07/24/16 09:27 Dose: 2 puff Ondansetron HCl (Zofran Inj*) 4 mg IV Q4H PRN PRN Reason: NAUSEA/VOMITING Oxycodone HCl (Roxycodone Tab*) 15 mg PO Q4H PRN PRN Reason: PAIN - MODERATE TO SEVERE Last Admin: 07/24/16 10:48 Dose: 15 mg Senna (Senokot Tab*) 1 tab PO BID [facility] Last Admin: 07/24/16 08:22 Dose: 1 tab Spironolactone (Aldactone Tab*) 50 mg PO DAILY [facility] Last Admin: 07/24/16 08:22 Dose: 50 mg Tiotropium [place] (Spiriva Cap.Inh*) 1 cap INH DAILY [facility] Last Admin: 07/24/16 09:27 Dose: 1 cap Warfarin Sodium (Coumadin Tab(*)) 15 mg PO 1700 [facility] PRN Reason: Protocol Last Admin: 07/23/16 18:10 Dose: 15 mg Vital Signs 07/23/16 07/23/16 07/23/16 15:33 16:29 18:09 Temperature 98.2 F Pulse Rate 72 72 Respiratory 20 20 14 Rate Blood Pressure 172/64 (mmHg) O2 Sat by Pulse 98 95 Oximetry 07/23/16 07/23/16 07/23/16 20:00 20:09 22:09 Temperature Pulse Rate Respiratory 20 18 16 Rate Blood Pressure (mmHg) O2 Sat by Pulse Oximetry 07/23/16 07/24/16 07/24/16 23:58 00:09 02:09 Temperature 98.2 F Pulse Rate 69 Respiratory 16 16 16 Rate Blood Pressure 144/51 (mmHg) O2 Sat by Pulse 99 Oximetry 07/24/16 07/24/16 07/24/16 04:08 06:08 07:56 Temperature 97.6 F Pulse Rate 81 Respiratory 18 16 Rate Blood Pressure 154/85 (mmHg) O2 Sat by Pulse 100 Oximetry 07/24/16 07/24/16 07/24/16 08:00 09:29 10:48 Temperature Pulse Rate 70 Respiratory 18 20 18 Rate Blood Pressure (mmHg) O2 Sat by Pulse 95 Oximetry 07/24/16 07/24/16 12:48 14:09 Temperature Pulse Rate 80 Respiratory 18 24 Rate Blood Pressure (mmHg) O2 Sat by Pulse 97 Oximetry Oxygen Devices in Use Now: Nasal Cannula - 5L Appearance: obese, NAD Eyes: No Scleral Icterus, PERRLA Ears/Nose/Mouth/Throat: Clear Oropharnyx, Mucous Membranes Moist Neck: NL Appearance and Movements; NL JVP Respiratory: Symmetrical Chest Expansion and Respiratory Effort, Clear to Auscultation Cardiovascular: RRR, - - 2/6 PATRICK Abdominal: NL Sounds; No Tenderness; No Distention, No Hepatosplenomegaly Lymphatic: No Cervical Adenopathy Extremities: - - 2+ LE edema Skin: - - 3cm round pretibial burn on RLE with surround erythema Neurological: Alert and Oriented x 3 Result Diagrams: 07/23/16 05:51 07/24/16 06:37 Additional Lab and Data: Lab Results 07/21/16 07/21/16 07/21/16 Range/Units 01:10 01:10 01:10 WBC 15.8 H (3.5-10.8) 10^3/ul RBC 4.48 (4.0-5.4) 10^6/ul Hgb 12.1 L (14.0-18.0) g/dl Hct 39 L (42-52) % MCV 87 (80-94) fL MCH 27 (27-31) pg MCHC 31 (31-36) g/dl RDW 17 H (10.5-15) % Plt Count 353 (150-450) 10^3/ul MPV 7 L (7.4-10.4) um3 Immature Gran % (Auto) 14 H (0-9) % Neut % (Auto) 83.3 H (38-83) % Lymph % (Auto) 6.8 L (25-47) % [place] % (Auto) 5.1 (1-9) % Eos % (Auto) 3.8 (0-6) % Baso % (Auto) 1.0 (0-2) % Absolute Neuts (auto) 13.1 H (1.5-7.7) 10^3/ul Absolute Lymphs (auto) 1.1 (1.0-4.8) 10^3/ul Absolute Monos (auto) 0.8 (0-0.8) 10^3/ul Absolute Eos (auto) 0.6 (0-0.6) 10^3/ul Absolute Basos (auto) 0.2 (0-0.2) 10^3/ul Absolute Nucleated RBC 0.01 10^3/ul Neutrophils % 77 (38-83) % Band Neutrophils % 10 H (0-8) % Lymphocytes % 5 L (25-47) % Monocytes % 2 (0-13) % Eosinophils % 2 (0-6) % Metamyelocytes % 3 H (0-2) % Myelocytes % 1 (0-1) % Nucleated RBC % 0 Normal RBC Morphology Not Reportable Microcytosis 1+ Macrocytosis 1+ INR (Anticoag Therapy) 2.44 H (0.89-1.11) D-Dimer, Quantitative < 200 (Less Than 230) ng/mL Sodium 128 L (133-145) mmol/L Potassium 4.0 (3.5-5.0) mmol/L Chloride 88 L (101-111) mmol/L Carbon Dioxide 34 H (22-32) mmol/L Anion Gap 6 (2-11) mmol/L BUN 63 H (6-24) mg/dL Creatinine 1.55 H (0.67-1.17) mg/dL Est GFR ( Amer) 61.1 (>60) Est GFR (Non-Af Amer) 47.5 (>60) BUN/Creatinine Ratio 40.6 H (8-20) Glucose 157 H (70-100) mg/dL Calcium 9.6 (8.6-10.3) mg/dL Total Bilirubin 0.50 (0.2-1.0) mg/dL AST 22 (13-39) U/L ALT 32 (7-52) U/L Alkaline Phosphatase 109 H (34-104) U/L C-Reactive Protein 14.22 H (< 5.00) mg/L Total Protein 7.4 (6.4-8.9) g/dL Albumin 3.9 (3.2-5.2) g/dL Globulin 3.5 (2-4) g/dL Albumin/Globulin Ratio 1.1 (1-3) Microbiology and Other Data: Microbiology 07/21/16 07:45 Nasal Screen MRSA (PCR)(JEAN CARLOS) - Final Nasal Mrsa Positive Assess/Plan/Problems-Billing Assessment: 50 yo M p/w LE pain and cellulitis of RLE - Patient Problems (1) Cellulitis Comment: WBC remains elevated d/c cefazolin Add vanco trend WBC tomorrow wound care c/s (2) Acute kidney injury Comment: Decrease lasix from 100BID to 60BID this evening - total dose 160mg (3) Atrial fibrillation Comment: Continue warfarin for CVA prophylaxis. Continue diltiazem, reduce metoprolol to 12.5 mg bid start PM 07/23 due to c/o dizziness, diastolic as low as 30 (4) Cardiomyopathy Comment: LVEF 45-50% on 10/24/15. (5) Diabetes Comment: Continue insulin 70/30 50 U BID cont ISS (6) DVT prophylaxis Comment: Coumadin
[2016-07-24] MEDS ORDERED: Vancomycin(*) 2,000 MG in NS 0.9% 500 ML BAG* 500 ML IVPB ONE (16:00)
[2016-07-24] MEDS: Furosemide TAB* 20 MG PO SCH (17:33)
[2016-07-24] MEDS: Warfarin TAB(*) 7.5 MG PO SCH (17:34)
[2016-07-25] MEDS: Albuterol 2.5 MG/3 ML NEB.SOL* (0.083%) INH PRN ×2 (01:44→13:30)
[2016-07-25] MEDS: oxyCODONE TAB* 5 MG TAB PO PRN ×3 (04:27→13:10)
[2016-07-25] MEDS ORDERED: Vancomycin(*) 1,500 MG in NS 0.9% 250 ML* 250 ML IVPB SCH (05:00)
[2016-07-25 06:37] LABS: Hematocrit 35 % (42-52); Hemoglobin 10.8 g/dl (14.0-18.0); Mean Corpuscular HGB Conc 31 g/dl (31-36); Mean Corpuscular Hemoglobin 27 pg (27-31); Mean Corpuscular Volume 87 fL (80-94); Mean Platelet Volume 8 um3 (7.4-10.4); Red Blood Count 4.05 10^6/ul (4.0-5.4); Red Cell Distribution Width 17 % (10.5-15); White Blood Count 13.6 10^3/ul (3.5-10.8)
[2016-07-25 06:38] LABS: Add Diff/Slide Review? Slide Review Added; Comments Flag Yes
[2016-07-25 06:53] LABS: BUN/Creatinine Ratio 45.7 (8-20); Calcium 9.3 mg/dL (8.6-10.3); EGFR African American 53.1 (>60); EGFR Non-African American 41.3 (>60); Potassium 3.8 mmol/L (3.5-5.0)
[2016-07-25] MEDS: Levothyroxine TAB* 100 MCG TAB PO SCH (08:56)
[2016-07-25] MEDS: Metolazone TAB* 5 MG PO SCH (08:56)
[2016-07-25] MEDS: Docusate CAP* 100 MG PO SCH (08:56)
[2016-07-25] MEDS: Furosemide TAB* 20 MG PO SCH (08:56)
[2016-07-25] MEDS: Diltiazem CD CAP* 180 MG PO SCH (08:56)
[2016-07-25] MEDS: Senna TAB PO SCH (08:56)
[2016-07-25] MEDS: Allopurinol TAB* 300 MG PO SCH (08:56)
[2016-07-25] MEDS: Metoprolol Tartrate TAB* 25 MG PO SCH (08:57)
[2016-07-25] MEDS: Spironolactone TAB* 25 MG PO SCH (08:57)
[2016-07-25] MEDS ORDERED: Insulin ISOPH/REG 70/30 (*) 1 UNITS UNIT SUBCUT SCH (09:00)
[2016-07-25] MEDS: Insulin LISPRO* 1 UNITS UNIT SUBCUT SCH ×2 (09:02→13:11)
[2016-07-25] MEDS: Fluticasone NASAL SPRAY 50MCG* 16 gm SPRAY BTL BOTH NARES SCH (09:03)
[2016-07-25] MEDS: Insulin ISOPH/REG 70/30 (*) 1 UNITS UNIT SUBCUT SCH (09:04)
[2016-07-25] MEDS: Mometasone/Formoter 200/5 MDI INH SCH (09:09)
[2016-07-25] MEDS: Tiotropium CAP.INH* CAP.INH/18 MCG INH SCH (09:09)
[2016-07-25 15:14] VITALS: BP 163/65
--- NOTE | 2016-07-25 18:42 | CONS ---
CONSULTATION REPORT: DATE OF CONSULT: 07/25/16 ADMITTING PHYSICIAN: Rik Richards MD. CONSULTED TO: Bautista Cr MD. (DICTATED BY RAI MENJIVAR) REASON FOR CONSULTATION: Right lower extremity cellulitis and ulcer. HISTORY OF PRESENT ILLNESS: Mr. Anderson is a pleasant 50-year-old gentleman with complicated past medical history significant for insulin-dependent diabetes mellitus, morbid obesity and recent hospital stay last month with CHF exacerbation. The patient notes that approximately 2 days prior to his presentation, he felt some pain in his right lower extremity that presented initially like a cramp. The patient had a rice pack that he put in a microwave and used it as a heating bag to right lower extremity; however, because of his peripheral neuropathy he could not feel if the bag was too hot. He had a small second-degree burn develop to the right lower extremity with some skin breakdown. He noted that the pain has gotten worse on the next day with difficulty ambulating. Because of his worsening pain and now an open burn ulcer in his right leg, he presented to the emergency room for further evaluation. He does note some surrounding redness to his burn site, but denies any fever, chills, nausea, vomiting, or night sweats. The patient has a longstanding history of insulin-dependent diabetes and was admitted in the past with cellulitis on multiple occasions. We were asked to see the patient for further evaluation of his right lower extremity ulcer for a possible debridement and management of his wound. PAST MEDICAL HISTORY: Significant for CHF, atrial fibrillation, sleep apnea. He is on CPAP. He also has history of insulin dependent diabetes mellitus, hypothyroidism, COPD, morbid obesity and CKD. PAST SURGICAL HISTORY: He denies any surgeries in the past. HOME MEDICATIONS: Include: 1. Percocet 5/325 one tablet every 4 hours p.r.n. for pain. 2. Coumadin 15 mg daily. 3. Spiriva one cap inhaled daily. 4. Aldactone 50 mg p.o. daily. 5. Senna one tab twice daily. 6. Dulera 200/5 mcg two puffs b.i.d. 7. Metoprolol 25 mg b.i.d. 8. Levothyroxine 400 mcg daily. 9. Insulin per sliding scale 70/30, 50 units twice daily. 10. Lasix 100 mg b.i.d. 11. Fluticasone nasal spray two puffs each nares b.i.d. 12. Docusate sodium 200 mg daily. 13. Diltiazem 360 mg daily. 14. Allopurinol 300 mg daily. 15. Albuterol 2 mcg inhaled q.4 hours p.r.n. for shortness of breath using a nebulizer 16. Tylenol 650 mg p.o. q.4 hours as needed for pain or fever. ALLERGIES: He is allergic to TETRACYCLINE. FAMILY HISTORY: Noncontributory. SOCIAL HISTORY: The patient is a former smoker, smoked cigars for 20 years and quit 15 years ago. He denies alcohol or illicit drug intake. REVIEW OF SYSTEMS: See HPI, otherwise negative. He denies any headache, dizziness, blurred vision or syncope. No chest pain, shortness of breath, cough , fever or chills. No abdominal pain, nausea, vomiting or recent changes in the bowel habits. No dysuria, hematuria or urinary frequency. He admits to occasional dull aching right lower extremity pain around his ulcer but denies any numbness more than his usual diabetic neuropathy at this point. PHYSICAL EXAMINATION: General: He is a morbidly obese middle aged gentleman, appears in no acute distress or discomfort at the time of consultation. Vitals : His vitals this morning was temperature of 98.3, pulse of 70, respirations of 22, O2 sat of 96% on room air, and blood pressure of 139/71. HEENT: Sclerae anicteric. PERRLA. EOMs intact. Oropharynx is pink, moist with no exudate. Neck: Supple. Trachea midline. No cervical adenopathy or thyromegaly. Lungs : Clear to auscultation bilaterally. Heart: Regular rate and rhythm. Normal S1 and S2 without rubs, murmurs or gallops. Back: Normal curvature. No CVA tenderness. Abdomen: Soft, nontender and nondistended. No hernias or masses noted. Neurologic: Grossly intact with mild fine sensation loss on the lower extremities. Extremity exam: Right lower extremity with moderate erythema noted on the tibial and lateral aspect just above the ankle. There is an area of ulceration on the very tibial anterior and lateral aspect of his right leg measuring approximately 3 x 6 cm with no active discharge noted. There is no tenderness on palpation. There is no induration noted and there is very mild surrounding erythema as well. Pedal pulse was not felt. Also there is good color to his lower extremity. Greater toe with no evidence of cellulitis or erythema noted due to a prior history of gout. Rectal Exam: Deferred. LABORATORY DATA: His labs this morning with white count of 13,600, hemoglobin 10.8, hematocrit of 35, and platelets of 338. Sodium of 131, chloride 91, potassium 3.8, CO2 35, BUN of 18, and creatinine of 1.7. His glucose was 217. ASSESSMENT: A 50-year-old gentleman with known history of insulin-dependent diabetes, morbid obesity, and recent trauma to his right lower extremity with cellulitis and right lower extremity ulcer. PLAN: After examination of his right lower extremity, I had a good conversation with the patient regarding the plan for his wound care management. At this point, there is no surgical indication for any debridement. However, I discussed with the patient if there is no improvement using Unna boot dressing in the next few days, we might have to proceed with that. He appears to be comfortable with that decision. I will change his dressing from Aquacel to Unna boots to be applied later today as well as a 4-inch Brandon wrap surrounding the area. I also encouraged him to keep his right lower extremity elevated as much as possible. For every other medical problem that the patient experienced, he will managed by Medicine. If he ends up being discharged to home later today or tomorrow, I will plan for him to follow up with Dr. Cr at the wound clinic. Thank you for this consultation. RAI MENJIVAR [id number]/[facility] #: [id number] MTDKay
[2016-07-26] MEDS ORDERED: Vancomycin Trough Check NOTE FOLLOW UP ONE (04:30)
--- NOTE | 2016-07-26 05:30 | DS ---
DISCHARGE SUMMARY: DATE OF ADMISSION: 07/22/16 DATE OF DISCHARGE: 07/25/16 PRIMARY CARE PROVIDER: Dr. Plasencia. FOLLOWUP WITH: Dr. Bautista Cr at the wound care clinic. BLOOD TEST ON DISCHARGE: INR on 07/28/16. MEDICATIONS ON DISCHARGE: Include: 1. Lasix 80 mg twice daily. 2. Bactrim twice daily for 10 additional days dosed for the patient's GFR of 41. 3. ProAir 2 mcg inhaled every 4 hours as needed. 4. Albuterol nebulizer every 4 hours as needed. 5. Metolazone 5 mg twice daily. 6. Levothyroxine 400 mcg daily. 7. Insulin lispro per home sliding scale. 8. Fluticasone nasal spray, 2 sprays both nares daily. 9. Docusate 200 mg daily. 10. Diltiazem CD 360 mg daily. 11. Allopurinol 300 mg daily. 12. Spiriva 1 cap daily. 13. Aldactone 50 mg daily. 14. Senna 1 cap twice daily. 15. Dulera 200/5 two puffs twice daily. 16. Metoprolol tartrate 25 mg twice daily. 17. Percocet 5/325 one tab every 4 hours as needed for pain. The patient had this dispensed by his PCP, several tabs left. 18. Coumadin 15 mg daily. 19. Oxycodone 10 mg every 4 hours as needed for pain, dispensed 4 days' medication. 20. Insulin 70/30, 70 units twice daily. Please note this is a correction from the 55 units as indicated in the discharge summary. IMAGING PERFORMED DURING HOSPITAL STAY: Lower extremity venous Doppler, impression: Limited study with incomplete evaluation of the right common femoral vein, greater saphenous vein, profunda femoral vein. Within the limitation of study, there is no right lower extremity deep vein thrombosis. PERTINENT LABORATORY DATA: White blood cell count on presentation 15.8, which is significant for 10% band and neutrophils, decreased to 13.6 over the ensuing days with no additional band neutrophils. INR on the day prior the discharge 2.29, creatinine on discharge 1.75 with BUN of 80. PRIMARY DIAGNOSES: 1. Cellulitis with associated open wound of the right lower extremity. 2. 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 SECONDARY DIAGNOSES: Include: 1. Morbid obesity. 2. Atrial fibrillation. 3. Sleep apnea, on CPAP. 4. Hypothyroidism. 5. 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 6. Chronic obstructive pulmonary disease. 7. Chronic kidney disease. HISTORY OF PRESENT ILLNESS AND HOSPITAL COURSE: A 50-year-old man with past medical history as outlined in the history of present illness on the day of admission by this author, July 21, who presented to the hospital with lower extremity pain and associated burn in the pretibial region in his right lower extremity, that he developed after placing a heat pad on his leg for comfort. Because of his peripheral neuropathy, he developed skin breakdown. It was thought that he had surrounding cellulitis at the area of the burn. He was treated with cefazolin. Initially, his white blood cell count did not improve. He was transitioned to one day of vancomycin. Prior to discharge, discharged on Bactrim for MRSA coverage. 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 The patient was seen in consultation with Surgery to evaluate the need for debridement. He was given Unna boots and instructions to change twice weekly and wound was wrapped by surgical service. Followup was arranged this Sunday 3 days after discharge with Dr. Cr in the wound care clinic to evaluate the potential need of additional wound management and potential debridement as area of the skin denudes or sloughs. In the setting of increased diuresis during the course of hospital stay, the patient did develop acute kidney injury with his creatinine peaking at 1.88. Lasix was decreased back to 80 mg twice daily as improvement in his creatinine. Attention should be paid to his renal function on discharge. INSTRUCTIONS: At followup, please: 1. Evaluate right lower extremity for continued resolution of cellulitis. 2. Continue to follow INR for stability on Bactrim as well as Coumadin. 3. Consider BMP for continued monitoring of chronic kidney disease. 4. No other specific labs or vitals that need followup. Reasons to return to the hospital including but not limited to recurrent or worsening symptoms, including worsening lower extremity pain, fever, chills, night sweats, worsening erythema or warmth, chest pain, shortness of breath, nausea, vomiting, lightheadedness, loss of consciousness, decreased urine output , inability to obtain or tolerate medications were discussed with the patient, he acknowledged understanding. TIME SPENT: Greater than 60 minutes was spent on discharge of this patient, greater than half was spent [id number] with the patient. CC: Dr. Plasencia; Dr. Cr* [id number]/[facility] #: [id number] [facility] HOSPITALKay
== END 2016-07-25 17:10 | disposition home or self-care (01) | DRG 383 ==
LOC: ED 23:46 → MED 07-21 05:35 → OBSVTOIN 07-22 17:47
PROVIDERS: ADMIT Internal Medicine; ATTEND Internal Medicine
DX: L03.115 Cellulitis of right lower limb (principal); N17.9 Acute kidney failure, unspecified; I42.9 Cardiomyopathy, unspecified; I50.40 Unspecified combined systolic (congestive) and diastolic (congestive) heart failure; E11.22 Type 2 diabetes mellitus with diabetic chronic kidney disease; Z68.44 Body mass index [BMI] 60.0-69.9, adult; E66.01 Morbid (severe) obesity due to excess calories; I48.91 Unspecified atrial fibrillation; G47.33 Obstructive sleep apnea (adult) (pediatric); E03.9 Hypothyroidism, unspecified; E11.42 Type 2 diabetes mellitus with diabetic polyneuropathy; J44.9 Chronic obstructive pulmonary disease, unspecified; N18.9 Chronic kidney disease, unspecified; Z99.89 Dependence on other enabling machines and devices; Z88.1 Allergy status to other antibiotic agents; Z86.718 Personal history of other venous thrombosis and embolism; Z87.891 Personal history of nicotine dependence; Z22.322 Carrier or suspected carrier of Methicillin resistant Staphylococcus aureus
CPT/HCPCS: 36415; 80048; 80053; 85025; 85379; 85610; 86140; 86703; 86706; 86803; 87340; 87641; 93005; 94640; 94760; A9270-GY; G8978-GP-CI; G8979-GP-CI; J0690; J2270; J3370

== ENCOUNTER 2017-02-23 15:32 | Inpatient (IN) | payer BC, OTHER ==
[~2017-02-23 15:32] MED LIST: Vancomycin(*) 1,250 MG in NS 0.9% 250 ML* 250 ML IVPB SCH
[2017-02-23] MEDS ORDERED: metroNIDAZOLE IV 500 MG/100ML* 500 MG/100 ML BAG IVPB ONE (17:11)
[2017-02-23] MEDS ORDERED: Cefepime(*) 2 GM in NS 0.9% 50 ML* 50 ML IVPB ONE (17:11)
--- NOTE | 2017-02-23 17:28 | RAD ---
Indication: Infection. Single frontal view of the chest performed at 1657 hours was reviewed. Comparison is made with previous exam dated June 08, 2016. Cardiomegaly is noted. Interstitial edema consistent with vascular congestion is noted. No alveolar consolidation is noted. IMPRESSION: CARDIOMEGALY WITH LIKELY INTERSTITIAL EDEMA AND VASCULAR CONGESTION.
[2017-02-23 17:29] LABS: Add Diff/Slide Review? Slide Review Added; Albumin 3.4 g/dL (3.2-5.2); BUN/Creatinine Ratio 49.7 (8-20); Calcium 9.3 mg/dL (8.6-10.3); Comments Flag Yes; EGFR African American 57.4 (>60); EGFR Non-African American 44.7 (>60); Globulin 4.1 g/dL (2-4); Hematocrit 33 % (42-52); Hemoglobin 10.7 g/dl (14.0-18.0); Mean Corpuscular HGB Conc 33 g/dl (31-36); Mean Corpuscular Hemoglobin 28 pg (27-31); Mean Corpuscular Volume 85 fL (80-94); Mean Platelet Volume 7 um3 (7.4-10.4); Potassium 3.9 mmol/L (3.5-5.0); Red Blood Count 3.87 10^6/ul (4.0-5.4); Red Cell Distribution Width 17 % (10.5-15); Total Bilirubin 0.6 mg/dL (0.2-1.0); Total Protein 7.5 g/dL (6.4-8.9); White Blood Count 19.2 10^3/ul (3.5-10.8)
[2017-02-23] MEDS ORDERED: Vancomycin(*) 2,000 MG in NS 0.9% 500 ML* 500 ML IVPB ONE (17:30)
[2017-02-23 17:35] LABS: Troponin I 0.05 ng/mL (<0.04)
[2017-02-23] MEDS ORDERED: NS 0.9% 50 ML* 50 ML ONE (17:35)
[2017-02-23 17:50] LABS: Urine Bacteria Absent (Absent); Urine Bilirubin Negative (Negative); Urine Glucose Negative (Negative); Urine Nitrite Negative (Negative)
[2017-02-23] MEDS ORDERED: Vancomycin(*) 1,000 MG VIAL IVPB SCH (18:00)
[2017-02-23] MEDS ORDERED: oxyCODONE TAB* 5 MG TAB PO PRN (18:28)
[2017-02-23] MEDS ORDERED: Dextrose 50% Syringe 50 ML* 25 GM/50 ML SYRINGE IV PUSH PRN (18:58)
[2017-02-23] MEDS ORDERED: Zosyn per Pharmacy* NOTE FOLLOW UP SCH (19:00)
[2017-02-23] MEDS: Atorvastatin* 40 MG TAB PO SCH (19:02)
[2017-02-23] MEDS: Diltiazem CD CAP* 180 MG PO SCH (19:02)
--- NOTE | 2017-02-23 19:36 | ED ---
Dru Obrien Alfonso, scribed for Alondra Thompson MD on 02/23/17 at 1650 . Complex/Multi-Sys Presentation - HPI Summary HPI Summary: This patient is a 51 year old M presenting to [facility] accompanied by with a chief complaint of diabetic infected right 2nd toe since 1 week ago. The patient rates the pain 8/10 in severity. Symptoms aggravated by touch. Symptoms alleviated by nothing. Patient reports bilateral ankle pain, and bilateral LE redness/edema. Patient denies fevers, and chills. - History Of Current Complaint Chief Complaint: EDExtremityLower Time Seen by Provider: 02/23/17 16:03 Hx Obtained From: Patient Onset/Duration: Gradual Onset, Lasting Weeks - 1 week, Still Present Timing: Constant Location: Pain At: - right 2nd toe Aggravating Factor(s): touch Alleviating Factor(s): nothing Associated Signs And Symptoms: Positive: Other - bilateral ankle pain, and bilateral LE redness/edema. Patient denies fevers, and chills. - Allergies/Home Medications Allergies/Adverse Reactions: Allergies Allergy/AdvReac Type Severity Reaction Status Date / Time Tigecycline Allergy Rash Verified 07/21/16 00:29 Home Medications: Home Medications Allopurinol TAB* [Zyloprim 300 MG TAB*] 600 mg PO DAILY 02/23/17 [History Confirmed 02/23/17] Atorvastatin* [Lipitor*] 40 mg PO DAILY 02/23/17 [History Confirmed 02/23/17] Budesonide/Formote 160/4.5(NF) [Symbicort 160/4.5 (NF)] 2 puff INH BID 02/23/17 [History Confirmed 02/23/17] Diltiazem HCl Extended Release [Diltiazem HCl ER] 360 mg PO DAILY 02/23/17 [ History Confirmed 02/23/17] Insulin ISOPH/REG 70/30 (*) [HumuLIN 70/30 (*)] 100 units SUBCUT BID 02/23/17 [ History Confirmed 02/23/17] Insulin LISPRO* [HumaLOG*] 5 - 10 units SUBCUT AC 02/23/17 [History Confirmed ] Ketoconazole 2 % CREAM (NF) [Nizoral 2% CREAM (NF)] 1 applic TOPICAL BID [History Confirmed 02/23/17] Levothyroxine TAB* [Synthroid TAB*] 200 mcg PO QAM 02/23/17 [History Confirmed 02/23/17] Torsemide TAB* [Demadex*] 40 mg PO BID 02/23/17 [History Confirmed 02/23/17] Warfarin TAB(*) [Coumadin TAB(*)] 7.5 mg PO WE 02/23/17 [History Confirmed 02/23] Warfarin TAB(*) [Coumadin TAB(*)] 15 mg PO SUMOTUTHFRSA 02/23/17 [History Confirmed 02/23/17] oxyCODONE TAB* [Roxycodone TAB 5 mg*] 5 mg PO Q8HR PRN MDD 15 mg 02/23/17 [ History Confirmed 02/23/17] PMH/Surg Hx/FS Hx/Imm Hx Endocrine/Hematology History: Reports: Hx Diabetes, Hx Thyroid Disease Cardiovascular History: Reports: Hx Atrial Fibrillation, Hx Congestive Heart Failure, Hx Deep Vein Thrombosis, Hx Hypercholesterolemia, Hx Hypertension, Hx Peripheral Vascular Disease, Other Cardiovascular Problems/Disorders - cardiomyopathy, IDDM, CHRONIC RENAL FAILURE, MORBID OBESITY Respiratory History: Reports: Hx Asthma, Hx Chronic Obstructive Pulmonary Disease (COPD) - on 4-5L home O2, Hx Pneumonia, Hx Pulmonary Embolism, Hx Sleep Apnea - compliant with cpap, Other Respiratory Problems/Disorders - SLEEP APNEA History: Reports: Hx Chronic Renal Failure Comment Only: Other Problems/Disorders - CKD Musculoskeletal History: Reports: Hx Arthritis, Hx Back Problems, Hx Gout - Immunization History Date of Tetanus Vaccine: utd Date of Influenza Vaccine: fall 2014 Infectious Disease History: No Infectious Disease History: Reports: Hx of Known/Suspected MRSA Denies: Traveled Outside the [place] in Last 30 Days - Family History Known Family History: Positive: Cardiac Disease, Diabetes - Social History Alcohol Use: None Hx Substance Use: No Substance Use Type: Reports: None Hx Tobacco Use: Yes Smoking Status (MU): Former Smoker Type: Cigars Review of Systems Negative: Fever, Chills Positive: Edema - Bilateral LE , Other - bilateral ankle pain. diabetic infected right 2nd toe. All Other Systems Reviewed And Are Negative: Yes Physical Exam - Summary Physical Exam Summary: General: Well appearing, no pain distress, morbidly obese Skin: Warm, Skin Color Reflects Adequate Perfusion, Dry Eyes: EOMI, KASSIDY ENT: Pharynx normal, TMs normal Neck: Supple, nontender Respiratory: CTA, breath sounds present, no rhonchi, no wheezes, no rales Cardiovascular: RRR, no murmur, no rub, no gallop Abdomen: Soft, nontender, Non-distended, no guarding, no rebound Bowel: Present Musculoskeletal: LLE: distal 2/3rds of calf erythematous. 3+ edema. Lateral malleolus of ankle has a fluctuant and induration area 5 cm in circumference. RLE: 3+ edema. malodorous, 2nd toe necrosis over ventral surface with erythema and ulceration over the top. Neuro: Sensory/motor intact, A&Ox3, CN intact 2-12 Psych: Affect/mood appropriate Triage Information Reviewed: Yes Vital Signs On Initial Exam: Initial Vitals Temp Pulse Resp BP Pulse Ox 98.1 F 98 20 135/69 94 02/23/17 15:42 02/23/17 15:42 02/23/17 15:42 02/23/17 15:42 02/23/17 15:42 Vital Signs Reviewed: Yes - [place] Coma Scale Coma Scale Total: 15 Diagnostics - Vital Signs Vital Signs Temp Pulse Resp BP Pulse Ox 02/23/17 16:48 95 02/23/17 16:47 138 95 02/23/17 16:30 134 138/74 95 02/23/17 16:00 119 164/63 95 02/23/17 15:57 136 94 02/23/17 15:56 144/76 02/23/17 15:42 98.1 F 98 20 135/69 94 - Laboratory Lab Results: Lab Results 02/23/17 02/23/17 02/23/17 Range/Units 17:06 17:06 17:06 WBC 19.2 H (3.5-10.8) 10^3/ul RBC 3.87 L (4.0-5.4) 10^6/ul Hgb 10.7 L (14.0-18.0) g/dl Hct 33 L (42-52) % MCV 85 (80-94) fL MCH 28 (27-31) pg MCHC 33 (31-36) g/dl RDW 17 H (10.5-15) % Plt Count 406 (150-450) 10^3/ul MPV 7 L (7.4-10.4) um3 Neut % (Auto) 90.2 H (38-83) % Lymph % (Auto) 2.5 L (25-47) % Harrison % (Auto) 4.9 (1-9) % Eos % (Auto) 1.8 (0-6) % Baso % (Auto) 0.6 (0-2) % Absolute Neuts (auto) 17.3 H (1.5-7.7) 10^3/ul Absolute Lymphs (auto) 0.5 L (1.0-4.8) 10^3/ul Absolute Monos (auto) 0.9 H (0-0.8) 10^3/ul Absolute Eos (auto) 0.3 (0-0.6) 10^3/ul Absolute Basos (auto) 0.1 (0-0.2) 10^3/ul Absolute Nucleated RBC 0 10^3/ul Nucleated RBC % 0 INR (Anticoag Therapy) 2.34 H (0.89-1.11) APTT 38.7 H (26.0-36.3) seconds Sodium 129 L (133-145) mmol/L Potassium 3.9 (3.5-5.0) mmol/L Chloride 91 L (101-111) mmol/L Carbon Dioxide 31 (22-32) mmol/L Anion Gap 7 (2-11) mmol/L BUN 81 H (6-24) mg/dL Creatinine 1.63 H (0.67-1.17) mg/dL Est GFR ( Amer) 57.4 (>60) Est GFR (Non-Af Amer) 44.7 (>60) BUN/Creatinine Ratio 49.7 H (8-20) Glucose 193 H (70-100) mg/dL Lactic Acid (0.5-2.0) mmol/L Calcium 9.3 (8.6-10.3) mg/dL Total Bilirubin 0.60 (0.2-1.0) mg/dL AST 47 H (13-39) U/L ALT 83 H (7-52) U/L Alkaline Phosphatase 192 H (34-104) U/L Troponin I 0.05 H* (<0.04) ng/mL Total Protein 7.5 (6.4-8.9) g/dL Albumin 3.4 (3.2-5.2) g/dL Globulin 4.1 H (2-4) g/dL Albumin/Globulin Ratio 0.8 L (1-3) Urine Color Urine Appearance Urine pH (5-9) Ur Specific Urania (1.010-1.030) Urine Protein (Negative) Urine Ketones (Negative) Urine Blood (Negative) Urine Nitrate (Negative) Urine Bilirubin (Negative) Urine Urobilinogen (Negative) Ur Leukocyte Esterase (Negative) Urine WBC (Auto) (Absent) Urine RBC (Auto) (Absent) Urine Bacteria (Absent) Granular Casts (Absent) Urine Glucose (Negative) 02/23/17 02/23/17 Range/Units 17:06 17:15 WBC (3.5-10.8) 10^3/ul RBC (4.0-5.4) 10^6/ul Hgb (14.0-18.0) g/dl Hct (42-52) % MCV (80-94) fL MCH (27-31) pg MCHC (31-36) g/dl RDW (10.5-15) % Plt Count (150-450) 10^3/ul MPV (7.4-10.4) um3 Neut % (Auto) (38-83) % Lymph % (Auto) (25-47) % Harrison % (Auto) (1-9) % Eos % (Auto) (0-6) % Baso % (Auto) (0-2) % Absolute Neuts (auto) (1.5-7.7) 10^3/ul Absolute Lymphs (auto) (1.0-4.8) 10^3/ul Absolute Monos (auto) (0-0.8) 10^3/ul Absolute Eos (auto) (0-0.6) 10^3/ul Absolute Basos (auto) (0-0.2) 10^3/ul Absolute Nucleated RBC 10^3/ul Nucleated RBC % INR (Anticoag Therapy) (0.89-1.11) APTT (26.0-36.3) seconds Sodium (133-145) mmol/L Potassium (3.5-5.0) mmol/L Chloride (101-111) mmol/L Carbon Dioxide (22-32) mmol/L Anion Gap (2-11) mmol/L BUN (6-24) mg/dL Creatinine (0.67-1.17) mg/dL Est GFR ( Amer) (>60) Est GFR (Non-Af Amer) (>60) BUN/Creatinine Ratio (8-20) Glucose (70-100) mg/dL Lactic Acid 0.7 (0.5-2.0) mmol/L Calcium (8.6-10.3) mg/dL Total Bilirubin (0.2-1.0) mg/dL AST (13-39) U/L ALT (7-52) U/L Alkaline Phosphatase (34-104) U/L Troponin I (<0.04) ng/mL Total Protein (6.4-8.9) g/dL Albumin (3.2-5.2) g/dL Globulin (2-4) g/dL Albumin/Globulin Ratio (1-3) Urine Color Straw Urine Appearance Clear Urine pH 6.0 (5-9) Ur Specific Urania 1.011 (1.010-1.030) Urine Protein 2+(100 mg/dl) H (Negative) Urine Ketones Negative (Negative) Urine Blood 1+ H (Negative) Urine Nitrate Negative (Negative) Urine Bilirubin Negative (Negative) Urine Urobilinogen Negative (Negative) Ur Leukocyte Esterase Negative (Negative) Urine WBC (Auto) Absent (Absent) Urine RBC (Auto) Trace(0-2/hpf) (Absent) Urine Bacteria Absent (Absent) Granular Casts Present H (Absent) Urine Glucose Negative (Negative) Result Diagrams: 02/23/17 17:06 02/23/17 17:06 Lab Statement: Any lab studies that have been ordered have been reviewed, and results considered in the medical decision making process. - Radiology CXR Radiology Interpretation Completed By: Radiologist - CARDIOMEGALY WITH LIKELY INTERSTITIAL EDEMA AND VASCULAR CONGESTION. ED physician has reviewed this radiology report and agrees. - EKG 1805 Cardiac Rate: Tachycardia - 135 BPM EKG Rhythm: Sinus Tachycardia EKG Interpretation: Diffuse T waves Complex Multi-Symp Course/Dx Course Of Treatment: 51 yo male morbidly obese male diabetic with b/l lower ext edema and cellulitis with right second toe necrosis. case was presented to Dr. Cervantes and jerome and kendrick given pt has wbc of 19k - Diagnoses Provider Diagnoses: Cellulitis, Ischemic necrosis of toe - Physician Notifications Discussed Care Of Patient With: Dennis Cervantes Time Discussed With Above Provider: 18:00 Instructed by Provider To: Other - Consulted Dr. Cervantes (hospitalist) who agrees to admit. Discharge - Discharge Plan Condition: Stable Disposition: ADMITTED TO [facility] documentation as recorded by the Dru gillespie Alfonso accurately reflects the service I personally performed and the decisions made by me, Alondra Thompson MD.
[2017-02-23] MEDS ORDERED: Vancomycin per Pharmacy* NOTE FOLLOW UP PRN (19:56)
[2017-02-23] MEDS: Metoprolol Tartrate TAB* 25 MG PO SCH (20:43)
[2017-02-23] MEDS: Torsemide TAB* 20 MG PO SCH (20:44)
[2017-02-23] MEDS: Insulin NPH(*) 1 UNITS UNIT SUBCUT SCH (20:58)
[2017-02-23] MEDS: Warfarin TAB(*) 7.5 MG PO SCH (21:01)
[2017-02-23] MEDS: Insulin LISPRO* 1 UNITS UNIT SUBCUT SCH (21:01)
[2017-02-23] MEDS: Albuterol 2.5 MG/3 ML NEB.SOL* (0.083%) INH PRN (21:23)
[2017-02-23 21:34] LABS: C Reactive Protein 186.16 mg/L (< 5.00)
[2017-02-23] MEDS: ZOSYN 3.375 GM Q8H per EXTENDED INFUSION IVPB SCH ×2 (22:36)
--- NOTE | 2017-02-23 23:02 | CONS ---
ORTHOPEDIC CONSULT NOTE: DATE OF CONSULT: 02/23/17. Emergency room consult for Orthopedics. Thank you for this orthopedic consultation. CHIEF COMPLAINT: Right foot pain, right second toe. HISTORY OF PRESENT ILLNESS: Mr. Anderson is a 51-year-old gentleman with 1 week of right foot pain. H daya reports his right second toe became red and inflamed about 1 week ago. 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 His primary care doctor placed him on oral antibiotic. He notes over the last week his s kin has started to break down and he has developed a bad odor from the second toe. He has a very li ttle sensation in his feet due to chronic diabetic neuropathy and lymphedema. He presented today be cause of drainage and redness in the right second toe. PAST MEDICAL HISTORY: Morbid obesity, CHF, atrial fibrillation, sleep apnea, on CPAP, hypothyroidis m, insulin-dependent type 2 diabetes, COPD, chronic kidney disease, Pickwickian syndrome, pulmonary embolism, DVT, gout, peripheral vascular disease, chronic lymphedema, proteinuria, hypertension, hyp erlipidemia, asthma. PAST SURGICAL HISTORY: None. CURRENT MEDICATIONS: 1. Albuterol 2 puffs every 4 hours as needed. 2. Allopurinol 300 mg 2 tabs p.o. daily. 3. Atorvastatin 40 mg p.o. daily. 4. Insulin Humalog 100 units 3 times a day before meals, 70/30 mixed acting 100 units 2 times daily before meals. 5. Budesonide/formoterol fumarate 160/4.5 two inhalations twice daily. 6. Diltiazem 360 mg 1 tab p.o. daily. 7. Doxycycline 100 mg p.o. b.i.d. 8. Fluticasone 50 mcg 2 sprays in each nostril daily. 9. Ketoconazole 2% apply to feet and affected areas twice a day. 10. Levothyroxine 200 mcg 2 tabs before breakfast. 11. Metolazone 5 mg p.o. daily. 12. Metoprolol 25 mg p.o. b.i.d. 13. Oxycodone 5 mg 1 tablet every 8 hours as needed for pain. 14. Spironolactone 50 mg 1 tablet p.o. daily. 15. Torsemide 20 mg 2 tablets p.o. b.i.d. 16. Warfarin 7.5 mg p.o. daily. ALLERGIES: TIGECYCLINE. FAMILY HISTORY: Paternal; coronary artery, CVA. SOCIAL HISTORY: Patient lives with his partner. No tobacco, alcohol or recreational drug use. Norm ally independent ambulator. REVIEW OF SYSTEMS: 14 systems reviewed with the patient, positive for the right second toe swelling and drainage. Negative for fever, chills, chest pain, shortness of breath. Otherwise, patient reports review of systems is negative, but not relevant. PHYSICAL EXAM: Vitals: Temperature 98.1, pulse of 119, blood pressure 164/63. General: Patient is a morbidly obese male in no apparent distress. Alert and oriented x3, pleasant mood and appropriat e affect. Accompanied by supportive partner. HEENT: Atraumatic, normocephalic. Pupils equal and reactive to light. Chest: Unlabored breathing. Right lower extremity, patient has chronic lymphedema and venous stasis changes distally with abno rmal discoloration of the skin due to chronic venous stasis, 2+ pitting edema up to the knee, decrea sed sensation in a dense stocking distribution. He can minimally dorsiflex and plantarflex at the a nkle. His second toe is swollen with erythema and some mild purulent drainage. He has nail fungus, which is quite advanced, along his heel he has lichenous type thickening. The second toe skin break down and purulent seems to stop at the junction near the metatarsal phalangeal joint. No palpable p ulses. I do not have a Doppler here that is working. DIAGNOSTIC STUDIES/LAB DATA: Patient has white blood cell 19.2, hematocrit 33, platelets 406, left shift 90.2. Current INR 2.34. Sodium 129, chloride 91, BUN and creatinine 81 and 1.63. Troponin 0 .05. ASSESSMENT AND PLAN: Mr. Anderson is a 51-year-old morbidly obese male with 1 week of right second toe infection. Patient has elevated white blood cells. I will order CRP and ESR for baseline. He is morbidly obese with diabetic neuropathy, chronic lymphedema and venous stasis changes. I will order some x-rays of the foot to start with, to evaluate for osteomyelitis. We may need further imaging. For now, the patient is on vancomycin and Zosyn as well as metronidazole. I will follow along with the blood cultures. He does not appear to be septic currently. He is tachycardic, but no hypotensio n. I have contacted Dr. Mckee our foot and ankle specialist. Patient and I discussed that he may need amputation of this toe in the future. He would like to manuel id surgery if at all possible. He would like to start some IV antibiotics and see whether this help s the infection. Our foot and ankle specialist Dr. Mckee or Dr. Muñoz will see the patient afte r the patient has had 48 to 72 hours of IV antibiotics. They can make an informed decision at this time. Thank you for this orthopedic consultation [id number]/[facility] #: [id number]
--- NOTE | 2017-02-24 00:35 | HP ---
HISTORY AND PHYSICAL: DATE OF ADMISSION: 02/23/17 PRIMARY CARE PROVIDER: Lencho Plasencia MD ATTENDING PROVIDER: Dennis Cervantes MD CHIEF COMPLAINT: Malodorous right second toe wound after stubbing toe. PAST MEDICAL HISTORY: Morbid obesity, chronic hypoxic respiratory failure(5L), insulin dependent diabetes mellitus, atrial fibrillation, diastolic CHF, obstructive sleep apnea, using CPAP, hypothyroidism, COPD, chronic kidney disease, creatinine baseline 1.5 to 1.8. HISTORY OF PRESENT ILLNESS: The patient is a 51-year-old male with past medical history as above who was in his normal state of health until he realized he must have stubbed his toe on his right foot second toe 7 days prior to admission. He has no sensation in either of his feet secondary to diabetic peripheral neuropathy. The patient noticed that the foot seemed pale in color with almost soni-like appearance and the toenail was bleeding. The patient called his primary care doctor, Dr. Plasencia, and he has been taking Keflex p.o. as an outpatient since. He was evaluated in wound clinic on the day of admission and given malodorous smell and appearance of ulceration, he was advised to present to [facility] Emergency Room. Of note, the patient has not been taking any of his medications all day and his initial heart rate was in the 120s to 130s with AFib on EKG with a rate of 135. He missed his diltiazem 360 mg q.a.m. and metoprolol 25 mg b.i.d. His initial white count was elevated to 19.2. He has been noting some chills at home, but no subjective fevers. In the emergency room, he was started on vancomycin and Zosyn. No initial lactic acidosis. Blood pressures were preserved 135/69 initially, 122/67 currently. He was satting mid 90s on room air. Temperature is 98.1. He had a chest x-ray, cardiomegaly with likely interstitial edema and vascular congestion. Today, the patient otherwise denies any shortness of breath, chest pressure, nausea, vomiting, constipation, headaches, other rashes , sick contacts. The patient reports his last A1c was approximately 7. He also reports twisting his left ankle also approximately a week ago and has had some pain there since. The patient is being admitted for diabetic foot ulceration to the right second toe that is malodorous and potentially needing amputation. PAST SURGICAL HISTORY: The patient denies. HOME MEDICATIONS: Include: 1. Warfarin 15 mg p.o. daily. 2. Torsemide 40 mg p.o. b.i.d. 3. Oxycodone 5 mg p.o. q.8 hours p.r.n. 4. Spironolactone 50 mg p.o. daily. 5. Metoprolol tartrate 25 mg p.o. b.i.d. 6. Metolazone 5 mg p.o. daily. 7. Synthroid 200 mcg p.o. q.a.m. 8. Ketoconazole 2% cream topically applied b.i.d. 9. Insulin 70/30 80 units b.i.d. 10. Lispro 10 units q.a.c. with some adjustments. 11. Flonase 2 sprays both nares daily. 12. Diltiazem 360 mg p.o. daily. 13. Symbicort 160/4.5 two puffs inhaled daily. 14. Atorvastatin 40 mg p.o. daily. 15. Allopurinol 600 mg p.o. daily. 16. Albuterol sulfate 2 puffs inhaled q.4 hours p.r.n. ALLERGIES: TIGECYCLINE causing skin rash. FAMILY HISTORY: Father with heart disease, maternal grandmother with diabetes, father and sister with diabetes, mother with fibromyalgia and "other problems." SOCIAL HISTORY: Cigar smoker for 20 years, quit 15 years prior to admission. No alcohol use. The patient is not currently working, "watches TV." No other drug use. Medical surrogate is his , Lauren Anderson, who is present at bedside. REVIEW OF SYSTEMS: A complete 14-point review of systems negative except as per HPI. The patient denies chest pain, chest pressure, abdominal pain, nausea , vomiting, diarrhea, constipation, hematochezia, melena, headaches, vision changes. Does attest to bilateral peripheral neuropathy, right second toe ulcer , left ankle pain, chills. PHYSICAL EXAMINATION GENERAL APPEARANCE: In no acute distress, morbidly obese gentleman with huge umbilical herniation. CURRENT VITAL SIGNS: Blood pressure 122/67, sating 95% on room air, respiratory rate 19, heart rate 130. HEENT: Normocephalic, atraumatic. No scleral icterus. Extraocular motions intact. Pupils are equal, round, and reactive to light. NECK: Supple. No cervical lymphadenopathy. PULMONARY: Clear to auscultation bilaterally with no wheezing, rales or rhonchi. CARDIOVASCULAR: Irregularly irregular rate, fast, but not tachycardic currently , approximately 90. No murmurs, rubs, or gallops. ABDOMEN: Soft, nontender, distended, morbid obesity with huge umbilical hernia hanging almost to bilateral mid thighs. EXTREMITIES: Warm, well perfused right second toe with ulceration near toenail with some surrounding dry blood, plantar aspect with necrotic looking scabs, plantar aspect with wide discoloration circumferentially. Sensation is absent. Bilateral erythema with chronic lymphedematous changes up bilateral calves. No significant pitting edema except left ankle 1+, some dry skin at the right heel. Toe nails in need of cutting bilaterally. NEUROLOGIC: Cranial nerves II through XII grossly intact. Strength intact. Sensation in the upper extremity is intact and bilateral feet absent except below the level of the ankle, does express ankle pain on the left side. SKIN: No other skin lesions or ulcerations on rest of body. LABORATORY EVALUATION: White count 19.2, hemoglobin 10.7, hematocrit 33, platelets 406, neutrophils 90.2%. INR 2.34. Sodium 129, potassium 3.9, chloride 91, carbon dioxide 31, BUN 81, creatinine 1.63, glucose 193, lactic acid 0.7. Troponin 0.05, alk phos 192, AST 47, ALT 83, total bili 0.60. Urinalysis, 1+ blood, present granular cast, 2+ protein. IMAGING: Chest x-ray: Cardiomegaly with likely interstitial edema and vascular congestion. EKG: Atrial fibrillation, heart rate 135, Q waves in III and aVF, lack of R-wave progression, QTc 42. No ST changes. ASSESSMENT AND PLAN : 1. The patient is a 51-year-old male with past medical history of morbid obesity, insulin-dependent diabetes mellitus, chronic atrial fibrillation, diastolic congestive heart failure with peripheral neuropathy who is presenting 7 days after stubbing his right second toe. He is being admitted for IV antibiotics given its malodorous drainage, his leukocytosis, tachycardia though likely secondary to his chronic atrial fibrillation in the setting of missing his beta-susie and calcium channel susie and a left shift. The patient was started on vancomycin and Zosyn in the ED. We will continue these with the pharmacy-guided renal dosing. Dr. Anne of Orthopedics was consulted to evaluate the toe for potential surgical management of this necrotic appearing toe. We will see how he does overnight on the IV antibiotics. 2. Congestive heart failure, diastolic. We will continue his torsemide 40 mg b.i.d., spironolactone 50 mg daily. There is some evidence of vascular congestion on his chest x-ray. We will get a BNP. He is otherwise on room air , saturating well. 3. Atrial fibrillation. I will continue his metoprolol 25 mg b.i.d. and diltiazem 360 mg daily to start now. 4. Chronic obstructive pulmonary disease. We will continue his Symbicort 2 puffs b.i.d., potential formulary change to Dulera. Continue albuterol q.h.s. p.r.n. nebulizer. Continue supplement oxygen for his chronic hypoxic respiratory failure. 5. For his insulin dependent diabetes mellitus, home dose of 80 units of 70/ 30. We will start 40 units of NPH q.12 hours and cover with high dose lispro sliding scale with [id number] testing q.a.c., q.h.s. 6. Hyperlipidemia. Continue Lipitor 40 mg daily. 7. Gout. Allopurinol 600 mg b.i.d. 9. For his hypertension, diuretics, beta-susie and spironolactone 50 mg daily. 10. For his atrial fibrillation, we will continue his Coumadin 15 mg daily. Goal INR 2 to 3. We will determine whether or not the patient will need surgical operation. The patient is full code. His medical surrogate is his , Lauren Anderson. No need for DVT prophylaxis in the setting of therapeutic INR. The patient is being admitted to Medicine inpatient with telemetry. He can go off monitor for tests. 11. Diet is consistent carbohydrate. [id number]/[facility] #: [id number] [facility]
[2017-02-24] MEDS: oxyCODONE TAB* 5 MG TAB PO PRN (01:53)
[2017-02-24] MEDS: Vancomycin(*) 1,250 MG in NS 0.9% 250 ML* 250 ML IVPB SCH ×4 (03:07→21:48)
[2017-02-24] MEDS: Albuterol 2.5 MG/3 ML NEB.SOL* (0.083%) INH PRN ×3 (03:44→17:03)
[2017-02-24] MEDS: Morphine INJ* 2 MG/ML 1 ML SYRINGE (TWO MG - NEW SYRINGE VERSION) IV PRN ×3 (04:19→22:00)
[2017-02-24] MEDS: Levothyroxine TAB* 100 MCG TAB PO SCH (06:14)
[2017-02-24] MEDS: ZOSYN 3.375 GM Q8H per EXTENDED INFUSION IVPB SCH ×4 (06:16→23:31)
[2017-02-24 06:23] LABS: Hematocrit 31 % (42-52); Hemoglobin 9.8 g/dl (14.0-18.0); Mean Corpuscular HGB Conc 32 g/dl (31-36); Mean Corpuscular Hemoglobin 27 pg (27-31); Mean Corpuscular Volume 85 fL (80-94); Mean Platelet Volume 7 um3 (7.4-10.4); Red Blood Count 3.64 10^6/ul (4.0-5.4); Red Cell Distribution Width 17 % (10.5-15); White Blood Count 17.6 10^3/ul (3.5-10.8)
[2017-02-24 06:25] LABS: Add Diff/Slide Review? Slide Review Added; Comments Flag Yes
[2017-02-24 06:30] LABS: BUN/Creatinine Ratio 45.8 (8-20); EGFR African American 56.2 (>60); EGFR Non-African American 43.7 (>60); Magnesium 1.5 mg/dL (1.9-2.7); Potassium 4.2 mmol/L (3.5-5.0)
[2017-02-24] MEDS: Insulin NPH(*) 1 UNITS UNIT SUBCUT SCH ×2 (07:43→18:01)
[2017-02-24] MEDS: Diltiazem CD CAP* 180 MG PO SCH (09:10)
[2017-02-24] MEDS: Allopurinol TAB* 300 MG PO SCH (09:11)
[2017-02-24] MEDS: Spironolactone TAB* 25 MG PO SCH (09:11)
[2017-02-24] MEDS: Torsemide TAB* 20 MG PO SCH ×2 (09:11→21:58)
[2017-02-24] MEDS: Atorvastatin* 40 MG TAB PO SCH (09:12)
[2017-02-24] MEDS: Insulin LISPRO* 1 UNITS UNIT SUBCUT SCH ×4 (09:12→21:56)
[2017-02-24] MEDS: Metoprolol Tartrate TAB* 25 MG PO SCH ×2 (09:12→21:58)
[2017-02-24] MEDS: Metolazone TAB* 5 MG PO SCH (09:12)
[2017-02-24] MEDS: Fluticasone NASAL SPRAY 50MCG* 16 gm SPRAY BTL BOTH NARES SCH (09:13)
--- NOTE | 2017-02-24 09:54 | PN ---
Progress Note - Progress Note Date of Service: 02/24/17 SOAP: Subjective: Pt. is alert, we discussed infection today and IV antibiotics. Objective: RLE - 2nd toe with purulence and erythema. unchanged form 02/23. doppler signals today dp and pt. Vital Signs: Temp Pulse Resp BP Pulse Ox 98.4 F 91 24 136/69 97 02/24/17 09:02 02/24/17 09:02 02/24/17 09:02 02/24/17 09:02 02/24/17 09:02 Laboratory Results - last 24 hr 02/23/17 02/23/17 02/23/17 17:06 17:06 17:06 WBC 19.2 H RBC 3.87 L Hgb 10.7 L Hct 33 L MCV 85 MCH 28 MCHC 33 RDW 17 H Plt Count 406 MPV 7 L Neut % (Auto) 90.2 H Lymph % (Auto) 2.5 L [place] % (Auto) 4.9 Eos % (Auto) 1.8 Baso % (Auto) 0.6 Absolute Neuts (auto) 17.3 H Absolute Lymphs (auto) 0.5 L Absolute Monos (auto) 0.9 H Absolute Eos (auto) 0.3 Absolute Basos (auto) 0.1 Absolute Nucleated RBC 0 Nucleated RBC % 0 ESR INR (Anticoag Therapy) 2.34 H APTT 38.7 H Sodium 129 L Potassium 3.9 Chloride 91 L Carbon Dioxide 31 Anion Gap 7 BUN 81 H Creatinine 1.63 H Est GFR ( Amer) 57.4 Est GFR (Non-Af Amer) 44.7 BUN/Creatinine Ratio 49.7 H Glucose 193 H POC Glucose (mg/dL) Lactic Acid Calcium 9.3 Magnesium Total Bilirubin 0.60 AST 47 H ALT 83 H Alkaline Phosphatase 192 H Troponin I 0.05 H* C-Reactive Protein 186.16 H Total Protein 7.5 Albumin 3.4 Globulin 4.1 H Albumin/Globulin Ratio 0.8 L Urine Color Urine Appearance Urine pH Ur Specific [place] Urine Protein Urine Ketones Urine Blood Urine Nitrate Urine Bilirubin Urine Urobilinogen Ur Leukocyte Esterase Urine WBC (Auto) Urine RBC (Auto) Urine Bacteria Granular Casts Urine Glucose 02/23/17 02/23/17 02/23/17 17:06 17:06 17:15 WBC RBC Hgb Hct MCV MCH MCHC RDW Plt Count MPV Neut % (Auto) Lymph % (Auto) [place] % (Auto) Eos % (Auto) Baso % (Auto) Absolute Neuts (auto) Absolute Lymphs (auto) Absolute Monos (auto) Absolute Eos (auto) Absolute Basos (auto) Absolute Nucleated RBC Nucleated RBC % ESR 114 H INR (Anticoag Therapy) APTT Sodium Potassium Chloride Carbon Dioxide Anion Gap BUN Creatinine Est GFR ( Amer) Est GFR (Non-Af Amer) BUN/Creatinine Ratio Glucose POC Glucose (mg/dL) Lactic Acid 0.7 Calcium Magnesium Total Bilirubin AST ALT Alkaline Phosphatase Troponin I C-Reactive Protein Total Protein Albumin Globulin Albumin/Globulin Ratio Urine Color Straw Urine Appearance Clear Urine pH 6.0 Ur Specific [place] 1.011 Urine Protein 2+(100 mg/dl) H Urine Ketones Negative Urine Blood 1+ H Urine Nitrate Negative Urine Bilirubin Negative Urine Urobilinogen Negative Ur Leukocyte Esterase Negative Urine WBC (Auto) Absent Urine RBC (Auto) Trace(0-2/hpf) Urine Bacteria Absent Granular Casts Present H Urine Glucose Negative 02/23/17 02/23/17 02/24/17 20:31 20:43 01:25 WBC RBC Hgb Hct MCV MCH MCHC RDW Plt Count MPV Neut % (Auto) Lymph % (Auto) [place] % (Auto) Eos % (Auto) Baso % (Auto) Absolute Neuts (auto) Absolute Lymphs (auto) Absolute Monos (auto) Absolute Eos (auto) Absolute Basos (auto) Absolute Nucleated RBC Nucleated RBC % ESR INR (Anticoag Therapy) APTT Sodium Potassium Chloride Carbon Dioxide Anion Gap BUN Creatinine Est GFR ( Amer) Est GFR (Non-Af Amer) BUN/Creatinine Ratio Glucose POC Glucose (mg/dL) 200 H 180 H Lactic Acid 0.8 Calcium Magnesium Total Bilirubin AST ALT Alkaline Phosphatase Troponin I C-Reactive Protein Total Protein Albumin Globulin Albumin/Globulin Ratio Urine Color Urine Appearance Urine pH Ur Specific [place] Urine Protein Urine Ketones Urine Blood Urine Nitrate Urine Bilirubin Urine Urobilinogen Ur Leukocyte Esterase Urine WBC (Auto) Urine RBC (Auto) Urine Bacteria Granular Casts Urine Glucose 02/24/17 02/24/17 02/24/17 05:15 05:15 07:48 WBC 17.6 H RBC 3.64 L Hgb 9.8 L Hct 31 L MCV 85 MCH 27 MCHC 32 RDW 17 H Plt Count 398 MPV 7 L Neut % (Auto) 88.3 H Lymph % (Auto) 3.4 L [place] % (Auto) 5.4 Eos % (Auto) 2.4 Baso % (Auto) 0.5 Absolute Neuts (auto) 15.5 H Absolute Lymphs (auto) 0.6 L Absolute Monos (auto) 0.9 H Absolute Eos (auto) 0.4 Absolute Basos (auto) 0.1 Absolute Nucleated RBC 0.01 Nucleated RBC % 0.1 ESR INR (Anticoag Therapy) APTT Sodium 131 L Potassium 4.2 Chloride 93 L Carbon Dioxide 33 H Anion Gap 5 BUN 76 H Creatinine 1.66 H Est GFR ( Amer) 56.2 Est GFR (Non-Af Amer) 43.7 BUN/Creatinine Ratio 45.8 H Glucose 121 H POC Glucose (mg/dL) 137 H Lactic Acid Calcium 9.0 Magnesium 1.5 L Total Bilirubin AST ALT Alkaline Phosphatase Troponin I C-Reactive Protein Total Protein Albumin Globulin Albumin/Globulin Ratio Urine Color Urine Appearance Urine pH Ur Specific [place] Urine Protein Urine Ketones Urine Blood Urine Nitrate Urine Bilirubin Urine Urobilinogen Ur Leukocyte Esterase Urine WBC (Auto) Urine RBC (Auto) Urine Bacteria Granular Casts Urine Glucose Assessment: 51 yo M with R 2nd toe infection Plan: cont IV abx pt and I discussed allowing IV abx to work over next 48 hours, he would like to avoid surgery if possible xray shows no obvious osteomyelitis except perhaps distal tip distal phalanx near nail d/w Dr. Miller who request [facility], will order. ortho to follow
--- NOTE | 2017-02-24 11:14 | RAD ---
INDICATION: Right second toe infection COMPARISON: None. TECHNIQUE: 3 views of the right foot were obtained. FINDINGS: There is a lucency in the appearance of bony destruction at the proximal pole of the third metatarsal. Soft tissue swelling is visible at the right second toe but the cortices of the underlying bones are intact. The remaining visualized bones are otherwise intact and appropriately aligned. Degenerative changes include enthesophyte formation at the origin the plantar fascia and the insertion site of the Achilles tendon on the calcaneal tubercle. Also noted is advanced calcified atherosclerosis of the anterior tibial and posterior tibial arteries extending into the pedal branches. IMPRESSION: 1. SOFT TISSUE SWELLING IS APPARENT AT THE RIGHT SECOND TOE BUT THE UNDERLYING BONY CORTICES ARE INTACT. 2. THERE IS BONY DESTRUCTION AND IRREGULARITY AT THE PROXIMAL POLE OF THE RIGHT THIRD METATARSAL. PLEASE CORRELATE TO PHYSICAL EXAMINATION. 3. ADVANCED CALCIFIED ATHEROSCLEROSIS OF THE DISTAL TIBIAL ARTERIES AND PEDAL ARTERIES. PLEASE CORRELATE TO SIGNS AND SYMPTOMS OF ARTERIAL INSUFFICIENCY WHICH CAN EXACERBATE CHRONIC FOOT WOUND. If the patient's symptoms persist, follow-up imaging is recommended.
[2017-02-24] MEDS ORDERED: ZOSYN 3.375 GM Q8H per EXTENDED INFUSION IVPB SCH ×2 (15:00)
--- NOTE | 2017-02-24 17:34 | PN ---
Subjective Date of Service: 02/24/17 Interval History: Pt still with some slight left ankle pain. Zosyn, vanc infusing. Objective Active Medications: Albuterol (Ventolin 2.5 Mg/3 Ml Neb.Christy*) 2.5 mg INH Q4H PRN PRN Reason: SHORTNESS OF BREATH Last Admin: 02/24/17 17:03 Dose: 2.5 mg Allopurinol (Zyloprim Tab*) 600 mg PO DAILY [facility] Last Admin: 02/24/17 09:11 Dose: 600 mg Atorvastatin Calcium (Lipitor*) 40 mg PO DAILY [facility] Last Admin: 02/24/17 09:12 Dose: 40 mg Dextrose (D50w Syringe 50 Ml*) 12.5 gm IV PUSH .FOR FS < 60 - SS PRN PRN Reason: FS < 60 Diltiazem HCl (Cardizem Cd Cap*) 360 mg PO DAILY [facility] Last Admin: 02/24/17 09:10 Dose: 360 mg Fluticasone Propionate (Flonase Nasal [place] 50mcg*) 2 spray BOTH NARES DAILY [facility] Last Admin: 02/24/17 09:13 Dose: 2 spray Vancomycin HCl 1,250 mg/ (Sodium Chloride) 250 mls @ 166.667 mls/hr IVPB Q8H [facility] Last Admin: 02/24/17 14:09 Dose: 166.667 mls/hr Piperacillin Sod/Tazobactam (Sod 3.375 gm/ Sodium Chloride) 100 mls @ 25 mls/ hr IVPB Q8HR [facility] Last Admin: 02/24/17 16:58 Dose: 25 mls/hr Insulin Human Lispro (Humalog*) 0 units SUBCUT ACHS [facility] PRN Reason: Protocol Last Admin: 02/24/17 13:19 Dose: 3 units Insulin Human NPH (Insulin Nph(*)) 40 units SUBCUT 0700,1800 [facility] Last Admin: 02/24/17 07:43 Dose: 40 unit Levothyroxine Sodium (Synthroid Tab*) 200 mcg PO QAM@0600 [facility] Last Admin: 02/24/17 06:14 Dose: 200 mcg Metolazone (Zaroxolyn Tab*) 5 mg PO DAILY [facility] Last Admin: 02/24/17 09:12 Dose: 5 mg Metoprolol Tartrate (Lopressor Tab*) 25 mg PO BID [facility] Last Admin: 02/24/17 09:12 Dose: 25 mg Morphine Sulfate (Morphine Inj (Syringe)*) 2 mg IV Q2H PRN PRN Reason: PAIN Last Admin: 02/24/17 11:42 Dose: 2 mg Oxycodone HCl (Roxycodone Tab*) 5 mg PO Q4H PRN PRN Reason: PAIN Last Admin: 02/24/17 01:53 Dose: 5 mg Pharmacy Consult (Zosyn Per Pharmacy*) 1 note FOLLOW UP .ZOSYN PER PHARMACY [facility] Pharmacy Consult (Vancomycin Per Pharmacy*) 1 note FOLLOW UP . PRN PRN Reason: PER PROTOCOL Pharmacy Profile Note (Vancomycin Trough Check) 1 note FOLLOW UP 2099 Stop: 02/24/17 21:01 Pharmacy Profile Note (Coumadin Daily Reminder*) 1 note FOLLOW UP 170 [facility] Spironolactone (Aldactone Tab*) 50 mg PO DAILY [facility] Last Admin: 02/24/17 09:11 Dose: 50 mg Torsemide (Demadex*) 40 mg PO BID [facility] Last Admin: 02/24/17 09:11 Dose: 40 mg Warfarin Sodium (Coumadin Tab(*)) 15 mg PO SuMoTuThFrSa@1700 [facility] PRN Reason: Protocol Last Admin: 02/23/17 21:01 Dose: 15 mg Warfarin Sodium (Coumadin Tab(*)) 7.5 mg PO We@1700 [facility] Vital Signs 02/23/17 02/23/17 02/23/17 18:30 18:49 19:02 Temperature 98.6 F Pulse Rate 130 108 Respiratory 19 22 16 Rate Blood Pressure 122/67 154/93 (mmHg) O2 Sat by Pulse 95 95 Oximetry 02/23/17 02/23/17 02/24/17 20:00 21:24 00:13 Temperature 99.8 F Pulse Rate 64 81 Respiratory 20 18 16 Rate Blood Pressure 127/44 (mmHg) O2 Sat by Pulse 91 98 Oximetry 02/24/17 02/24/17 02/24/17 00:24 01:53 03:42 Temperature 98.5 F Pulse Rate 81 81 Respiratory 16 18 20 Rate Blood Pressure 127/63 117/55 (mmHg) O2 Sat by Pulse 96 98 Oximetry 02/24/17 02/24/17 02/24/17 03:45 03:53 04:14 Temperature 97.4 F Pulse Rate 70 81 Respiratory 20 20 16 Rate Blood Pressure 167/67 (mmHg) O2 Sat by Pulse 98 96 Oximetry 02/24/17 02/24/17 02/24/17 04:19 05:19 08:00 Temperature Pulse Rate Respiratory 20 18 18 Rate Blood Pressure (mmHg) O2 Sat by Pulse 97 Oximetry 02/24/17 02/24/17 02/24/17 09:02 11:20 11:42 Temperature 98.4 F Pulse Rate 91 70 Respiratory 24 17 18 Rate Blood Pressure 136/69 (mmHg) O2 Sat by Pulse 97 98 Oximetry 02/24/17 02/24/17 02/24/17 12:42 14:05 15:38 Temperature 98.0 F 98.0 F Pulse Rate 63 66 Respiratory 20 24 20 Rate Blood Pressure 107/33 148/61 (mmHg) O2 Sat by Pulse 98 97 Oximetry 02/24/17 17:05 Temperature Pulse Rate 87 Respiratory 17 Rate Blood Pressure (mmHg) O2 Sat by Pulse 99 Oximetry Oxygen Devices in Use Now: Nasal Cannula Appearance: chronically ill appearing but no acute distress Eyes: No Scleral Icterus, PERRLA Neck: NL Appearance and Movements; NL JVP Respiratory: Symmetrical Chest Expansion and Respiratory Effort, - - distant lung sounds, no rales or rhonchi appreciated. Cardiovascular: NL Sounds; No Murmurs; No JVD, RRR Abdominal: - - massive umbilical hernial, morbidly obese, soft nontender. Extremities: - - 2+ woody edema b/l; 2nd right toe wrapped in vasoline gauze w/ some purulent drainage inferior aspect. base looks slightly improved. [place], dopplerable pulses. Neurological: Alert and Oriented x 3, - - neuropathy b/l feet. Result Diagrams: 02/24/17 05:15 02/24/17 05:15 Additional Lab and Data: Laboratory Results - last 24 hr 02/23/17 02/23/17 02/23/17 17:06 17:06 17:15 WBC RBC Hgb Hct MCV MCH MCHC RDW Plt Count MPV Neut % (Auto) Lymph % (Auto) [place] % (Auto) Eos % (Auto) Baso % (Auto) Absolute Neuts (auto) Absolute Lymphs (auto) Absolute Monos (auto) Absolute Eos (auto) Absolute Basos (auto) Absolute Nucleated RBC Nucleated RBC % ESR 114 H Sodium Potassium Chloride Carbon Dioxide Anion Gap BUN Creatinine Est GFR ( Amer) Est GFR (Non-Af Amer) BUN/Creatinine Ratio Glucose POC Glucose (mg/dL) Lactic Acid Calcium Magnesium C-Reactive Protein 186.16 H Urine Color Straw Urine Appearance Clear Urine pH 6.0 Ur Specific [place] 1.011 Urine Protein 2+(100 mg/dl) H Urine Ketones Negative Urine Blood 1+ H Urine Nitrate Negative Urine Bilirubin Negative Urine Urobilinogen Negative Ur Leukocyte Esterase Negative Urine WBC (Auto) Absent Urine RBC (Auto) Trace(0-2/hpf) Urine Bacteria Absent Granular Casts Present H Urine Glucose Negative 02/23/17 02/23/17 02/24/17 20:31 20:43 01:25 WBC RBC Hgb Hct MCV MCH MCHC RDW Plt Count MPV Neut % (Auto) Lymph % (Auto) [place] % (Auto) Eos % (Auto) Baso % (Auto) Absolute Neuts (auto) Absolute Lymphs (auto) Absolute Monos (auto) Absolute Eos (auto) Absolute Basos (auto) Absolute Nucleated RBC Nucleated RBC % ESR Sodium Potassium Chloride Carbon Dioxide Anion Gap BUN Creatinine Est GFR ( Amer) Est GFR (Non-Af Amer) BUN/Creatinine Ratio Glucose POC Glucose (mg/dL) 200 H 180 H Lactic Acid 0.8 Calcium Magnesium C-Reactive Protein Urine Color Urine Appearance Urine pH Ur Specific [place] Urine Protein Urine Ketones Urine Blood Urine Nitrate Urine Bilirubin Urine Urobilinogen Ur Leukocyte Esterase Urine WBC (Auto) Urine RBC (Auto) Urine Bacteria Granular Casts Urine Glucose 02/24/17 02/24/17 02/24/17 05:15 05:15 07:48 WBC 17.6 H RBC 3.64 L Hgb 9.8 L Hct 31 L MCV 85 MCH 27 MCHC 32 RDW 17 H Plt Count 398 MPV 7 L Neut % (Auto) 88.3 H Lymph % (Auto) 3.4 L [place] % (Auto) 5.4 Eos % (Auto) 2.4 Baso % (Auto) 0.5 Absolute Neuts (auto) 15.5 H Absolute Lymphs (auto) 0.6 L Absolute Monos (auto) 0.9 H Absolute Eos (auto) 0.4 Absolute Basos (auto) 0.1 Absolute Nucleated RBC 0.01 Nucleated RBC % 0.1 ESR Sodium 131 L Potassium 4.2 Chloride 93 L Carbon Dioxide 33 H Anion Gap 5 BUN 76 H Creatinine 1.66 H Est GFR ( Amer) 56.2 Est GFR (Non-Af Amer) 43.7 BUN/Creatinine Ratio 45.8 H Glucose 121 H POC Glucose (mg/dL) 137 H Lactic Acid Calcium 9.0 Magnesium 1.5 L C-Reactive Protein Urine Color Urine Appearance Urine pH Ur Specific [place] Urine Protein Urine Ketones Urine Blood Urine Nitrate Urine Bilirubin Urine Urobilinogen Ur Leukocyte Esterase Urine WBC (Auto) Urine RBC (Auto) Urine Bacteria Granular Casts Urine Glucose 02/24/17 02/24/17 11:41 16:58 WBC RBC Hgb Hct MCV MCH MCHC RDW Plt Count MPV Neut % (Auto) Lymph % (Auto) [place] % (Auto) Eos % (Auto) Baso % (Auto) Absolute Neuts (auto) Absolute Lymphs (auto) Absolute Monos (auto) Absolute Eos (auto) Absolute Basos (auto) Absolute Nucleated RBC Nucleated RBC % ESR Sodium Potassium Chloride Carbon Dioxide Anion Gap BUN Creatinine Est GFR ( Amer) Est GFR (Non-Af Amer) BUN/Creatinine Ratio Glucose POC Glucose (mg/dL) 191 H 172 H Lactic Acid Calcium Magnesium C-Reactive Protein Urine Color Urine Appearance Urine pH Ur Specific [place] Urine Protein Urine Ketones Urine Blood Urine Nitrate Urine Bilirubin Urine Urobilinogen Ur Leukocyte Esterase Urine WBC (Auto) Urine RBC (Auto) Urine Bacteria Granular Casts Urine Glucose Microbiology and Other Data: Microbiology 02/23/17 17:25 Blood Venous Aerobic Blood Culture - Preliminary No Growth Day 1 02/23/17 17:25 Blood Venous Anaerobic Blood Culture - Preliminary No Growth Day 1 02/23/17 17:06 Blood Venous Aerobic Blood Culture - Preliminary No Growth Day 1 02/23/17 17:06 Blood Venous Anaerobic Blood Culture - Preliminary No Growth Day 1 02/24/17 05:30 Nasal Nasal Screen MRSA (PCR)(JEAN CARLOS) - Final Mrsa Positive Assess/Plan/Problems-Billing Assessment: 51 year old male PMH IDDM, morbid obesity(BMI 63), Afib (coumadin), chronic hypoxic respiratory failure(5L) p/w 2nd toe ulcer. Zosyn/vanc. Ortho on board, may need a surgery. VINCENZO pending. Xray w bony distruction and irregularity proximal 3rd toe metatarsal. - Patient Problems (1) Diabetic foot ulcer Current Visit: Yes Status: Acute Code(s): E11.621 - TYPE 2 DIABETES MELLITUS WITH FOOT ULCER; L97.509 - NON-PRESSURE CHRONIC ULCER OTH PRT UNSP FOOT W UNSP SEVERITY SNOMED Code(s): 855115401 Comment: ESR 113 Continue vanc, zosyn appreciate ortho recs. f/u VINCENZO wound care consult. Xray with no bony destruction 2nd right toe but irregularities proximal metatarsal 3rd toe. (2) Acute on chronic diastolic (congestive) heart failure Current Visit: No Status: Acute Priority: High Code(s): I50.33 - ACUTE ON CHRONIC DIASTOLIC (CONGESTIVE) HEART FAILURE SNOMED Code(s): 399654519 Comment: torsemide 40mg po BID, 5mg metolazone daily, spironolactone 50mg daily. last 3 ECHOs not diagnostic for diastolic evaluation. (3) CKD (chronic kidney disease) stage 3, GFR 30-59 ml/min Current Visit: No Status: Chronic Priority: Medium Code(s): N18.3 - CHRONIC KIDNEY DISEASE, STAGE 3 (MODERATE) SNOMED Code(s): 811242441 Comment: Stable. RN SURGICAL 1.6 (4) COPD (chronic obstructive pulmonary disease) Current Visit: No Status: Chronic Priority: Medium Code(s): J44.9 - CHRONIC OBSTRUCTIVE PULMONARY DISEASE, UNSPECIFIED SNOMED Code(s): 87494567 Comment: chronic respiratory failure on 5 L 02 at home. stable not wheezing. No cough. (5) Gout Current Visit: No Status: Chronic Code(s): M10.9 - GOUT, UNSPECIFIED SNOMED Code(s): 19262744 Comment: continue allopurinol 600mg daily. (6) Hypertension Current Visit: No Status: Chronic Priority: Medium Code(s): I10 - ESSENTIAL (PRIMARY) HYPERTENSION SNOMED Code(s): 78937037 Comment: Continue diltiazem 360mg, torsemide 40mg po BID, 5 metolazone daily , spironolactone 50mg daily. (7) Insulin dependent diabetes mellitus Current Visit: No Status: Chronic Code(s): E11.9 - TYPE 2 DIABETES MELLITUS WITHOUT COMPLICATIONS; Z79.4 - SENIOR CARE (CURRENT) USE OF INSULIN SNOMED Code( s): 51710063 Comment: home was 70/30 80U BID. 40U NPH with high dose SSI qachs, POCT qachs Status and Disposition: medicine inpatient. Attending: Dennis Cervantes
[2017-02-24] MEDS: Warfarin TAB(*) 7.5 MG PO SCH (18:01)
[2017-02-24] MEDS ORDERED: Vancomycin Trough Check NOTE FOLLOW UP ONE (21:00)
[2017-02-25] MEDS: Morphine INJ* 2 MG/ML 1 ML SYRINGE (TWO MG - NEW SYRINGE VERSION) IV PRN ×4 (02:27→23:44)
[2017-02-25] MEDS: Albuterol 2.5 MG/3 ML NEB.SOL* (0.083%) INH PRN ×2 (02:34→20:37)
[2017-02-25] MEDS: ZOSYN 3.375 GM Q8H per EXTENDED INFUSION IVPB SCH ×8 (05:07→22:32)
[2017-02-25] MEDS: Levothyroxine TAB* 100 MCG TAB PO SCH (05:11)
[2017-02-25] MEDS: Vancomycin(*) 1,250 MG in NS 0.9% 250 ML* 250 ML IVPB SCH ×3 (05:31→20:54)
[2017-02-25] MEDS: Insulin NPH(*) 1 UNITS UNIT SUBCUT SCH ×2 (07:33→18:23)
[2017-02-25] MEDS: Atorvastatin* 40 MG TAB PO SCH (09:09)
[2017-02-25] MEDS: Torsemide TAB* 20 MG PO SCH ×2 (09:09→20:49)
[2017-02-25] MEDS: Insulin LISPRO* 1 UNITS UNIT SUBCUT SCH ×4 (09:09→22:13)
[2017-02-25] MEDS: Spironolactone TAB* 25 MG PO SCH (09:10)
[2017-02-25] MEDS: Allopurinol TAB* 300 MG PO SCH (09:10)
[2017-02-25] MEDS: Metolazone TAB* 5 MG PO SCH (09:10)
[2017-02-25] MEDS: Diltiazem CD CAP* 180 MG PO SCH (09:10)
[2017-02-25] MEDS: Fluticasone NASAL SPRAY 50MCG* 16 gm SPRAY BTL BOTH NARES SCH (09:11)
[2017-02-25] MEDS: Metoprolol Tartrate TAB* 25 MG PO SCH ×2 (09:11→20:50)
[2017-02-25 12:25] LABS: Hematocrit 32 % (42-52); Hemoglobin 9.9 g/dl (14.0-18.0); Mean Corpuscular HGB Conc 31 g/dl (31-36); Mean Corpuscular Hemoglobin 27 pg (27-31); Mean Corpuscular Volume 86 fL (80-94); Mean Platelet Volume 7 um3 (7.4-10.4); Red Blood Count 3.71 10^6/ul (4.0-5.4); Red Cell Distribution Width 17 % (10.5-15); White Blood Count 18.7 10^3/ul (3.5-10.8)
[2017-02-25 12:37] LABS: Add Diff/Slide Review? Slide Review Added; Comments Flag Yes
[2017-02-25 12:41] LABS: BUN/Creatinine Ratio 41.9 (8-20); Calcium 9.1 mg/dL (8.6-10.3); EGFR African American 51.5 (>60); EGFR Non-African American 40.1 (>60); Magnesium 1.7 mg/dL (1.9-2.7); Potassium 3.9 mmol/L (3.5-5.0)
--- NOTE | 2017-02-25 14:35 | RAD ---
Indication: RIGHT foot infection. Former tobacco use. Diabetic. Hypertensive. Comparison: October 08, 2011 Technique: Ankle and brachial blood pressure measurement. Calculated ankle-brachial indices. REPORT: The right ankle brachial index could not be calculated due to noncompressible vessels. Low amplitude broadened triphasic waveforms at the posterior tibial and dorsalis pedis arteries with further interval degradation. Moderately decreased amplitude of the RIGHT ankle pulse volume recording. The left ankle brachial index could not be calculated due to noncompressible vessels. Preserved posterior tibial triphasic waveform and low amplitude broadened dorsalis pedis triphasic waveform similar to the prior exam. Mild decreased amplitude of the LEFT ankle pulse 1 recording. IMPRESSION: The ankle brachial indices could not be calculated due to noncompressible vessels. Further degradation of RIGHT posterior tibial and dorsalis pedis waveforms compared with the October 08, 2011 exam favoring interval worsening of inflow disease or intrinsic lower extremity stenoses.
[2017-02-25] MEDS ORDERED: Magnesium Sulfate 2 GM IV* 2 GM/50 ML BAG IVPB ONE (17:06)
--- NOTE | 2017-02-25 17:29 | PN ---
Subjective Date of Service: 02/25/17 Interval History: Patient seen and evaluated in his room where he is found laying in bed. He is A+ O x3. He reports to me that his toe dressing has not been changed but per nursing staff his dressing was changed this morning. He denies feeling confused. He denies fever or chills. No N/V/D. Reports good appetite. He denies any pain at the wound site. Objective Active Medications: Albuterol (Ventolin 2.5 Mg/3 Ml Neb.Christy*) 2.5 mg INH Q4H PRN PRN Reason: SHORTNESS OF BREATH Last Admin: 02/25/17 02:34 Dose: 2.5 mg Allopurinol (Zyloprim Tab*) 600 mg PO DAILY [facility] Last Admin: 02/25/17 09:10 Dose: 600 mg Atorvastatin Calcium (Lipitor*) 40 mg PO DAILY [facility] Last Admin: 02/25/17 09:09 Dose: 40 mg Dextrose (D50w Syringe 50 Ml*) 12.5 gm IV PUSH .FOR FS < 60 - SS PRN PRN Reason: FS < 60 Diltiazem HCl (Cardizem Cd Cap*) 360 mg PO DAILY [facility] Last Admin: 02/25/17 09:10 Dose: 360 mg Fluticasone Propionate (Flonase Nasal [place] 50mcg*) 2 spray BOTH NARES DAILY [facility] Last Admin: 02/25/17 09:11 Dose: 2 spray Vancomycin HCl 1,250 mg/ (Sodium Chloride) 250 mls @ 166.667 mls/hr IVPB Q8H [facility] Last Admin: 02/25/17 13:19 Dose: 166.667 mls/hr Piperacillin Sod/Tazobactam (Sod 3.375 gm/ Sodium Chloride) 100 mls @ 200 mls/ hr IVPB Q6H [facility] Last Admin: 02/25/17 10:38 Dose: 200 mls/hr Insulin Human Lispro (Humalog*) 0 units SUBCUT ACHS [facility] PRN Reason: Protocol Last Admin: 02/25/17 13:18 Dose: 6 units Insulin Human NPH (Insulin Nph(*)) 40 units SUBCUT 0700,1800 [facility] Last Admin: 02/25/17 07:33 Dose: 40 unit Levothyroxine Sodium (Synthroid Tab*) 200 mcg PO QAM@0600 [facility] Last Admin: 02/25/17 05:11 Dose: 200 mcg Metolazone (Zaroxolyn Tab*) 5 mg PO DAILY [facility] Last Admin: 02/25/17 09:10 Dose: 5 mg Metoprolol Tartrate (Lopressor Tab*) 25 mg PO BID [facility] Last Admin: 02/25/17 09:11 Dose: 25 mg Morphine Sulfate (Morphine Inj (Syringe)*) 2 mg IV Q2H PRN PRN Reason: PAIN Last Admin: 02/25/17 10:39 Dose: 2 mg Oxycodone HCl (Roxycodone Tab*) 5 mg PO Q4H PRN PRN Reason: PAIN Last Admin: 02/24/17 01:53 Dose: 5 mg Pharmacy Consult (Zosyn Per Pharmacy*) 1 note FOLLOW UP .ZOSYN PER PHARMACY [facility] Pharmacy Consult (Vancomycin Per Pharmacy*) 1 note FOLLOW UP . PRN PRN Reason: PER PROTOCOL Pharmacy Profile Note (Coumadin Daily Reminder*) 1 note FOLLOW UP 1700 [facility] Last Admin: 02/24/17 18:02 Dose: 1 note Spironolactone (Aldactone Tab*) 50 mg PO DAILY [facility] Last Admin: 02/25/17 09:10 Dose: 50 mg Torsemide (Demadex*) 40 mg PO BID [facility] Last Admin: 02/25/17 09:09 Dose: 40 mg Warfarin Sodium (Coumadin Tab(*)) 15 mg PO SuMoTuThFrSa@1700 [facility] PRN Reason: Protocol Last Admin: 02/24/17 18:01 Dose: 15 mg Warfarin Sodium (Coumadin Tab(*)) 7.5 mg PO We@1700 [facility] Vital Signs 02/24/17 02/24/17 02/24/17 19:18 20:00 22:00 Temperature 97.8 F Pulse Rate 71 Respiratory 20 18 20 Rate Blood Pressure 137/53 (mmHg) O2 Sat by Pulse 97 100 Oximetry 02/24/17 02/25/17 02/25/17 22:55 00:35 02:27 Temperature 97.9 F Pulse Rate 62 Respiratory 18 16 20 Rate Blood Pressure 126/49 (mmHg) O2 Sat by Pulse 100 Oximetry 02/25/17 02/25/17 02/25/17 02:35 03:26 03:58 Temperature 97.9 F Pulse Rate 62 70 Respiratory 18 16 16 Rate Blood Pressure 162/71 (mmHg) O2 Sat by Pulse 98 100 Oximetry 02/25/17 02/25/17 02/25/17 08:00 08:06 10:39 Temperature 97.8 F Pulse Rate 76 Respiratory 20 20 20 Rate Blood Pressure 144/66 (mmHg) O2 Sat by Pulse 94 99 Oximetry 02/25/17 02/25/17 02/25/17 11:39 11:49 15:12 Temperature 98.3 F Pulse Rate 67 65 Respiratory 20 20 20 Rate Blood Pressure 146/67 152/82 (mmHg) O2 Sat by Pulse 100 99 Oximetry Oxygen Devices in Use Now: Nasal Cannula Appearance: morbidly obese male laying in bed in NAD, A+Ox3 Eyes: No Scleral Icterus, PERRLA Ears/Nose/Mouth/Throat: NL Teeth, Lips, Gums Respiratory: Symmetrical Chest Expansion and Respiratory Effort, Clear to Auscultation Cardiovascular: NL Sounds; No Murmurs; No JVD, RRR, - - 2+ LE edema noted with vascular changes to skin bilaterally Abdominal: NL Sounds; No Tenderness; No Distention, - - obese Extremities: No Clubbing, Cyanosis Skin: - - Right 2nd toe with dressing wrapped in vasoline gauze with noted purulent drainage noted, dressing removed, foul odor - toe has black necrotic on base of toe, toe nail intact but noted deep ulcer at base. warm to touch. DP pulses + by doppler Neurological: Alert and Oriented x 3 Lines/Tubes/Other Access: Clean, Dry and Intact Peripheral IV Nutrition: Taking PO's Result Diagrams: 02/25/17 12:16 02/25/17 12:16 Additional Lab and Data: Laboratory Results - last 24 hr 02/23/17 02/23/17 02/23/17 17:06 17:06 17:15 WBC RBC Hgb Hct MCV MCH MCHC RDW Plt Count MPV Neut % (Auto) Lymph % (Auto) [place] % (Auto) Eos % (Auto) Baso % (Auto) Absolute Neuts (auto) Absolute Lymphs (auto) Absolute Monos (auto) Absolute Eos (auto) Absolute Basos (auto) Absolute Nucleated RBC Nucleated RBC % ESR 114 H Sodium Potassium Chloride Carbon Dioxide Anion Gap BUN Creatinine Est GFR ( Amer) Est GFR (Non-Af Amer) BUN/Creatinine Ratio Glucose POC Glucose (mg/dL) Lactic Acid Calcium Magnesium C-Reactive Protein 186.16 H Urine Color Straw Urine Appearance Clear Urine pH 6.0 Ur Specific [place] 1.011 Urine Protein 2+(100 mg/dl) H Urine Ketones Negative Urine Blood 1+ H Urine Nitrate Negative Urine Bilirubin Negative Urine Urobilinogen Negative Ur Leukocyte Esterase Negative Urine WBC (Auto) Absent Urine RBC (Auto) Trace(0-2/hpf) Urine Bacteria Absent Granular Casts Present H Urine Glucose Negative 02/23/17 02/23/17 02/24/17 20:31 20:43 01:25 WBC RBC Hgb Hct MCV MCH MCHC RDW Plt Count MPV Neut % (Auto) Lymph % (Auto) [place] % (Auto) Eos % (Auto) Baso % (Auto) Absolute Neuts (auto) Absolute Lymphs (auto) Absolute Monos (auto) Absolute Eos (auto) Absolute Basos (auto) Absolute Nucleated RBC Nucleated RBC % ESR Sodium Potassium Chloride Carbon Dioxide Anion Gap BUN Creatinine Est GFR ( Amer) Est GFR (Non-Af Amer) BUN/Creatinine Ratio Glucose POC Glucose (mg/dL) 200 H 180 H Lactic Acid 0.8 Calcium Magnesium C-Reactive Protein Urine Color Urine Appearance Urine pH Ur Specific [place] Urine Protein Urine Ketones Urine Blood Urine Nitrate Urine Bilirubin Urine Urobilinogen Ur Leukocyte Esterase Urine WBC (Auto) Urine RBC (Auto) Urine Bacteria Granular Casts Urine Glucose 02/24/17 02/24/17 02/24/17 05:15 05:15 07:48 WBC 17.6 H RBC 3.64 L Hgb 9.8 L Hct 31 L MCV 85 MCH 27 MCHC 32 RDW 17 H Plt Count 398 MPV 7 L Neut % (Auto) 88.3 H Lymph % (Auto) 3.4 L [place] % (Auto) 5.4 Eos % (Auto) 2.4 Baso % (Auto) 0.5 Absolute Neuts (auto) 15.5 H Absolute Lymphs (auto) 0.6 L Absolute Monos (auto) 0.9 H Absolute Eos (auto) 0.4 Absolute Basos (auto) 0.1 Absolute Nucleated RBC 0.01 Nucleated RBC % 0.1 ESR Sodium 131 L Potassium 4.2 Chloride 93 L Carbon Dioxide 33 H Anion Gap 5 BUN 76 H Creatinine 1.66 H Est GFR ( Amer) 56.2 Est GFR (Non-Af Amer) 43.7 BUN/Creatinine Ratio 45.8 H Glucose 121 H POC Glucose (mg/dL) 137 H Lactic Acid Calcium 9.0 Magnesium 1.5 L C-Reactive Protein Urine Color Urine Appearance Urine pH Ur Specific [place] Urine Protein Urine Ketones Urine Blood Urine Nitrate Urine Bilirubin Urine Urobilinogen Ur Leukocyte Esterase Urine WBC (Auto) Urine RBC (Auto) Urine Bacteria Granular Casts Urine Glucose Microbiology and Other Data: Microbiology 02/23/17 17:25 Blood Venous Aerobic Blood Culture - Preliminary No Growth Day 1 02/23/17 17:25 Blood Venous Anaerobic Blood Culture - Preliminary No Growth Day 1 02/23/17 17:06 Blood Venous Aerobic Blood Culture - Preliminary No Growth Day 1 02/23/17 17:06 Blood Venous Anaerobic Blood Culture - Preliminary No Growth Day 1 02/24/17 05:30 Nasal Nasal Screen MRSA (PCR)(JEAN CARLOS) - Final Mrsa Positive Assess/Plan/Problems-Billing Assessment: 51 year old male PMH IDDM, morbid obesity(BMI 63), Afib (coumadin), chronic hypoxic respiratory failure(5L) p/w 2nd toe ulcer. Zosyn/vanc. Ortho on board, may need a surgery. VINCENZO pending. Xray w bony distruction and irregularity proximal 3rd toe metatarsal. - Patient Problems (1) Diabetic foot ulcer Comment: ESR 113 Continue vanc, zosyn appreciate ortho recs. plan for IV abx, wound care. Pt would like to avoid surgery, Ortho will follow. f/u VINCENZO - still pending wound care consult. Xray with no bony destruction 2nd right toe but irregularities proximal metatarsal 3rd toe. (2) Acute on chronic diastolic (congestive) heart failure Comment: Improving. torsemide 40mg po BID, 5mg metolazone daily, spironolactone 50mg daily. last 3 ECHOs not diagnostic for diastolic evaluation. Monitor electrolytes and replace as needed - Mg+ 2gms given today Daily Weights (3) CKD (chronic kidney disease) stage 3, GFR 30-59 ml/min Comment: Stable. [employer] 1.79 (4) COPD (chronic obstructive pulmonary disease) Comment: chronic respiratory failure on 5 L 02 at home. stable not wheezing/SOB noted (5) Gout Comment: continue allopurinol 600mg daily. (6) Hypertension Comment: Continue diltiazem 360mg, torsemide 40mg po BID, 5 metolazone daily, spironolactone 50mg daily. (7) Insulin dependent diabetes mellitus Comment: home was 70/30 80U BID. 40U NPH with high dose SSI qachs, POCT qachs (8) Full code status Status and Disposition: medicine inpatient. LOS > 2 days
[2017-02-25] MEDS: Warfarin TAB(*) 7.5 MG PO SCH (17:49)
[2017-02-26] MEDS: Morphine INJ* 2 MG/ML 1 ML SYRINGE (TWO MG - NEW SYRINGE VERSION) IV PRN ×3 (03:15→21:57)
[2017-02-26] MEDS: Albuterol 2.5 MG/3 ML NEB.SOL* (0.083%) INH PRN ×3 (05:10→22:15)
[2017-02-26] MEDS: Vancomycin(*) 1,250 MG in NS 0.9% 250 ML* 250 ML IVPB SCH ×3 (05:30→21:58)
[2017-02-26] MEDS: ZOSYN 3.375 GM Q8H per EXTENDED INFUSION IVPB SCH ×4 (05:30→11:23)
[2017-02-26] MEDS: Levothyroxine TAB* 100 MCG TAB PO SCH (05:47)
[2017-02-26] MEDS: Insulin LISPRO* 1 UNITS UNIT SUBCUT SCH ×4 (08:07→21:56)
[2017-02-26] MEDS: Insulin NPH(*) 1 UNITS UNIT SUBCUT SCH ×2 (08:07→17:58)
[2017-02-26] MEDS: Metolazone TAB* 5 MG PO SCH (08:08)
[2017-02-26] MEDS: Torsemide TAB* 20 MG PO SCH ×2 (08:08→21:56)
[2017-02-26] MEDS: Allopurinol TAB* 300 MG PO SCH (08:08)
[2017-02-26] MEDS: Spironolactone TAB* 25 MG PO SCH (08:08)
[2017-02-26] MEDS: Diltiazem CD CAP* 180 MG PO SCH (08:08)
[2017-02-26] MEDS: Metoprolol Tartrate TAB* 25 MG PO SCH ×2 (08:08→21:56)
[2017-02-26] MEDS: Fluticasone NASAL SPRAY 50MCG* 16 gm SPRAY BTL BOTH NARES SCH (08:08)
[2017-02-26] MEDS: Atorvastatin* 40 MG TAB PO SCH (08:08)
--- NOTE | 2017-02-26 08:38 | SURGPN ---
Subjective - Introduction -: [f ADM pt sex out], current age [f ADM pt cur age] years Admitted on: [f ADM pt adm dt] Patient's surgical date: Procedure completed: - Medications -: Active Medications Generic Name Dose Route Start Last Admin Trade Name Freq PRN Reason Stop Dose Admin Albuterol 2.5 mg 02/23/17 18:28 02/26/17 05:10 Ventolin 2.5 Mg/3 Ml Neb.Christy* INH 2.5 mg Q4H PRN Administration SHORTNESS OF BREATH Allopurinol 600 mg 02/24/17 09:00 02/26/17 08:08 Zyloprim Tab* PO 600 mg DAILY [facility] Administration Atorvastatin Calcium 40 mg 02/23/17 19:00 02/26/17 08:08 Lipitor* PO 40 mg DAILY [facility] Administration Dextrose 12.5 gm 02/23/17 18:58 D50w Syringe 50 Ml* IV PUSH .FOR FS < 60 - SS PRN FS < 60 Diltiazem HCl 360 mg 02/23/17 18:30 02/26/17 08:08 Cardizem Cd Cap* PO 360 mg DAILY [facility] Administration Fluticasone Propionate 2 spray 02/24/17 09:00 02/26/17 08:08 Flonase Nasal [place] 50mcg* BOTH NARES 2 spray DAILY [facility] Administration Vancomycin HCl 1,250 mg/ 250 mls @ 166.667 mls/hr 02/24/17 13:30 02/26/17 05: 30 Sodium Chloride IVPB 166.667 mls/hr Q8H [facility] Administration Piperacillin Sod/Tazobactam 100 mls @ 200 mls/hr 02/24/17 23:00 02/26/17 05: 30 Sod 3.375 gm/ Sodium Chloride IVPB 200 mls/hr Q6H [facility] Administration Insulin Human Lispro 0 units 02/23/17 21:00 02/26/17 08:07 Humalog* SUBCUT 3 units ACHS [facility] Administration Protocol Insulin Human NPH 40 units 02/23/17 19:00 02/26/17 08:07 Insulin Nph(*) SUBCUT 40 unit 0700,1800 [facility] Administration Levothyroxine Sodium 200 mcg 02/24/17 06:00 02/26/17 05:47 Synthroid Tab* PO 200 mcg QAM@0600 [facility] Administration Metolazone 5 mg 02/24/17 09:00 02/26/17 08:08 Zaroxolyn Tab* PO 5 mg DAILY [facility] Administration Metoprolol Tartrate 25 mg 02/23/17 21:00 02/26/17 08:08 Lopressor Tab* PO 25 mg BID [facility] Administration Morphine Sulfate 2 mg 02/24/17 03:16 02/26/17 03:15 Morphine Inj (Syringe)* IV 2 mg Q2H PRN Administration PAIN Oxycodone HCl 5 mg 02/24/17 00:45 02/24/17 01:53 Roxycodone Tab* PO 5 mg Q4H PRN Administration PAIN Pharmacy Consult 1 note 02/23/17 19:00 Zosyn Per Pharmacy* FOLLOW UP .ZOSYN PER PHARMACY [facility] Pharmacy Consult 1 note 02/23/17 19:56 Vancomycin Per Pharmacy* FOLLOW UP . PRN PER PROTOCOL Pharmacy Profile Note 1 note 02/24/17 17:00 02/25/17 17:50 Coumadin Daily Reminder* FOLLOW UP 1 note 1700 [facility] Administration Spironolactone 50 mg 02/24/17 09:00 02/26/17 08:08 Aldactone Tab* PO 50 mg DAILY [facility] Administration Torsemide 40 mg 02/23/17 21:00 02/26/17 08:08 Demadex* PO 40 mg BID [facility] Administration Warfarin Sodium 15 mg 02/23/17 19:00 02/25/17 17:49 Coumadin Tab(*) PO Not Given SuMoTuThFrSa@1700 [facility] Protocol Warfarin Sodium 7.5 mg 02/28/17 17:00 Coumadin Tab(*) PO We@1700 [facility] - Comments Comments: Chief Complaint: Right second toe infection. History: 51M with ~1 week of right 2nd toe infection. Reports unchanged this morning. The pain is located at right 2nd toe and is daily, minimal, dull. Pain worse with weight-bearing and lessened when weight bearing is discontinued. Review of Systems: Negative for recent visual changes, difficulty swallowing, chest pain, shortness of breath, abdominal pain, hematuria, easy bruising, diffuse weakness or lack of coordination, and diffuse rash. Physical Examination: Constitutional: Temp Pulse Resp BP Pulse Ox 97.6 F 79 16 142/64 98 02/26/17 07:28 02/26/17 07:28 02/26/17 07:43 02/26/17 07:28 02/26/17 07:28 General appearance is healthy and non-septic in no acute distress. Cardiovascular: Pulse examination demonstrates absent pedal pulses. Psychiatric / Neurological: Appropriate affect. Alert and oriented to person, place and time. Musculoskeletal: Impaired light touch sensation. right second toe infection with purulence. No spreading Erythema proximally. Absent pedal pulses. global lower extremity edema and chronic venous stasis changes. Studies: xrays reviewed. VINCENZO indeterminate due to calcification. Impression and Plan: Right second toe infection in the setting of diabetes and neuropathy. The VINCENZO's were inconclusive due to calcification, but peripheral vascular disease is likely plain a large role in this. I recommend the vascular team get involved to further evaluate. I recommend an MRI of the right foot to determine the extent of bony involvement. The patient and I discussed the diagnosis and prognosis at length this morning. He is hoping to avoid surgery, which is understandable, but I did explain that it may be necessary to clear this infection. - MRI right foot - Vascular consult - Antibiotics per ID - Will continue to follow A total of 35 min. was spent [id number] with the patient during this encounter and over half of that time was spent on counseling and coordination of care. Jose Mckee MD Objective - Intake and Output -: Intake & Output 02/24/17 02/25/17 02/26/17 02/27/17 06:59 06:59 06:59 06:59 Intake Total 1500 4921 4888 Output Total 1400 4770 3725 Balance 714 990 9483 Weight 464 lb 9.6 oz Intake: IV Fluids 100 431 188 ABX - VANCOMYCIN 250 93 ABX - ZOSYN 60 95 NS (0.9%) 121 IVPB 091 242 0962 ABX - VANCOMYCIN 250 250 750 ABX - ZOSYN 100 200 300 NS (0.9%) 250 Oral 1050 4040 3400 Output: Urine 1400 4770 3725 Other: Estimated Void Small Large Large # Bowel Movements 0 0 0 Estimated Stool Amount Medium # Voids 2 2 2 ADLs: Meal Record Start: 02/23/17 18: 49 Freq: DAILY@0900,1400,1800 Status: Active Document 02/24/17 09:00 [id number] (Rec: 02/24/17 09:44 [id number] [facility]-8) Document 02/24/17 14:00 [id number] (Rec: 02/24/17 15:18 [id number] TELE-C08) Document 02/24/17 18:00 [id number] (Rec: 02/24/17 18:52 [id number] TELE-C01) Document 02/25/17 09:00 [id number] (Rec: 02/25/17 12:21 [id number] TELE-C05) Document 02/25/17 14:00 [id number] (Rec: 02/25/17 14:41 [id number] TELE-C05) Document 02/25/17 18:00 [id number] (Rec: 02/25/17 18:11 [id number] TELE-C01) Intake and Output Start: 02/23/17 18: 49 Freq: DAILY@0600,1400,2200 Status: Active Document 02/23/17 22:00 [id number] (Rec: 02/23/17 22:25 [id number] TELE-C35) Document 02/24/17 06:00 [id number] (Rec: 02/24/17 06:38 [id number] TELE-C11) Document 02/24/17 09:41 [id number] (Rec: 02/24/17 09:41 [id number] TELE-C08) Document 02/24/17 12:39 [id number] (Rec: 02/24/17 12:39 [id number] TELE-C08) Document 02/24/17 17:24 [id number] (Rec: 02/24/17 17:24 [id number] TELE-C06) Document 02/24/17 17:35 [id number] (Rec: 02/24/17 17:35 [id number] TELE-C01) Document 02/24/17 22:00 [id number] (Rec: 02/24/17 22:22 [id number] TELE-C01) Document 02/25/17 06:00 [id number] (Rec: 02/25/17 06:56 [id number] TELE-C09) Document 02/25/17 14:00 [id number] (Rec: 02/25/17 14:41 [id number] TELE-C05) Document 02/25/17 22:00 [id number] (Rec: 02/25/17 22:04 [id number] TELE-C08) Document 02/26/17 06:00 [id number] (Rec: 02/26/17 06:54 [id number] TELE-C07)
[2017-02-26 08:56] LABS: Hematocrit 33 % (42-52); Hemoglobin 10.5 g/dl (14.0-18.0); Mean Corpuscular HGB Conc 32 g/dl (31-36); Mean Corpuscular Hemoglobin 27 pg (27-31); Mean Corpuscular Volume 85 fL (80-94); Mean Platelet Volume 7 um3 (7.4-10.4); Red Blood Count 3.85 10^6/ul (4.0-5.4); Red Cell Distribution Width 17 % (10.5-15)
[2017-02-26 09:08] LABS: BUN/Creatinine Ratio 41.4 (8-20); C Reactive Protein 100.79 mg/L (< 5.00); Calcium 9.5 mg/dL (8.6-10.3); EGFR African American 53.3 (>60); EGFR Non-African American 41.4 (>60); Magnesium 1.8 mg/dL (1.9-2.7); Potassium 3.8 mmol/L (3.5-5.0)
[2017-02-26] MEDS: oxyCODONE TAB* 5 MG TAB PO PRN (13:38)
--- NOTE | 2017-02-26 16:49 | PN ---
Subjective Date of Service: 02/26/17 Interval History: Patient seen and examined at bedside. Patient denies pain and fever. Moving bowels without difficulty. Afebrile. Sugars slightly elevated. Family History: Unchanged from Admission Social History: Unchanged from Admission Past Medical History: Unchanged from Admission Objective Active Medications: Albuterol (Ventolin 2.5 Mg/3 Ml Neb.Christy*) 2.5 mg INH Q4H PRN Allopurinol (Zyloprim Tab*) 600 mg PO DAILY [facility] Amlodipine Besylate (Norvasc Tab*) 5 mg PO DAILY [facility] Atorvastatin Calcium (Lipitor*) 40 mg PO DAILY [facility] Collagenase (Santyl 250 Mg/Gm Oint*) 1 applic TOPICAL DAILY [facility] Diltiazem HCl (Cardizem Cd Cap*) 360 mg PO DAILY [facility] Fluticasone Propionate (Flonase Nasal [place] 50mcg*) 2 spray BOTH NARES DAILY [facility] Vancomycin HCl 1,250 mg/ (Sodium Chloride) 250 mls @ 166.667 mls/hr IVPB Q8H [facility] Cefepime HCl (Maxipime 2 Gm In Dextrose Duplex (*)) 2 gm in 50 mls @ 100 mls/ hr IV Q12H [facility] Insulin Human Lispro (Humalog*) 0 units SUBCUT ACHS [facility] Insulin Human NPH (Insulin Nph(*)) 40 units SUBCUT 0700,1800 [facility] Levothyroxine Sodium (Synthroid Tab*) 200 mcg PO QAM@0600 [facility] Metolazone (Zaroxolyn Tab*) 5 mg PO DAILY [facility] Metoprolol Tartrate (Lopressor Tab*) 25 mg PO BID [facility] Morphine Sulfate (Morphine Inj (Syringe)*) 2 mg IV Q2H PRN Oxycodone HCl (Roxycodone Tab*) 5 mg PO Q4H PRN Pharmacy Consult (Vancomycin Per Pharmacy*) 1 note FOLLOW UP . PRN Pharmacy Profile Note (Coumadin Daily Reminder*) 1 note FOLLOW UP 1700 [facility] Spironolactone (Aldactone Tab*) 50 mg PO DAILY [facility] Torsemide (Demadex*) 40 mg PO BID [facility] Warfarin Sodium (Coumadin Tab(*)) 15 mg PO SuMoTuThFrSa@1700 [facility] Warfarin Sodium (Coumadin Tab(*)) 7.5 mg PO We@1700 [facility] 02/26/17 02/26/17 02/26/17 11:33 11:40 12:40 Temperature 98.5 F Pulse Rate 66 Respiratory 16 18 18 Rate Blood Pressure 175/68 (mmHg) O2 Sat by Pulse 97 Oximetry Oxygen Devices in Use Now: Nasal Cannula Appearance: morbidly obese, sitting in bed, NAD Eyes: No Scleral Icterus, PERRLA Ears/Nose/Mouth/Throat: NL Teeth, Lips, Gums Neck: NL Appearance and Movements; NL JVP Respiratory: Symmetrical Chest Expansion and Respiratory Effort, Clear to Auscultation Cardiovascular: NL Sounds; No Murmurs; No JVD, RRR Abdominal: NL Sounds; No Tenderness; No Distention Extremities: No Edema Skin: - - R 2nd toe swollen with foul smell. Neurological: Alert and Oriented x 3, NL Muscle Strength and Tone Lines/Tubes/Other Access: Clean, Dry and Intact Peripheral IV Result Diagrams: 02/26/17 08:27 02/26/17 08:27 Assess/Plan/Problems-Billing 51 year old male PMH IDDM, morbid obesity(BMI 63), Afib (coumadin), chronic hypoxic respiratory failure(5L) p/w 2nd toe ulcer. On IV antibiotics. - Patient Problems (1) Diabetic foot ulcer Comment: Appreciate Ortho, ID and IR. Abx changed to cefepine. VINCENZO showed non- compressible R vessel. Will need vascular evaluation to ensure wound healing and our CT limit is 450lb. Also unable to have non-invasive PAD interventions here due to weight. Will get MRI to assess extent of infection. Trying to transfer to [facility] for Vascular evaluation. Santyl to R toe for now. Leukocytosis improving. (2) Acute on chronic diastolic (congestive) heart failure Comment: Improving. Continue torsemide 40mg po BID, 5mg metolazone daily, spironolactone 50mg daily. Daily Weights. (3) CKD (chronic kidney disease) stage 3, GFR 30-59 ml/min Comment: Stable. CR 1.79 (4) COPD (chronic obstructive pulmonary disease) Comment: Stable; On 5 L 02 at home. Not wheezing/SOB noted (5) Gout Comment: Continue allopurinol 600mg daily. (6) Hypertension Comment: Will add Norvasc as BP up this PM. Continue diltiazem 360mg, torsemide 40mg po BID, 5 metolazone daily, spironolactone 50mg daily. (7) Insulin dependent diabetes mellitus Comment: Home was 70/30 80units BID. Will increase to 50 NPH with high dose SSI qachs, POCT qachs (8) DVT prophylaxis Comment: Therapeutic INR. Continue warfarin. (9) Full code status Status and Disposition: Inpatient. Needs Vascular evaluation and CT scanner cannot hold patient. Will get MRI to eval extent of infection and seek out transfer to [facility].
[2017-02-26] MEDS: Collagenase 250 MG/GM OINT* 30 GM TOPICAL SCH (17:11)
[2017-02-26] MEDS: Warfarin TAB(*) 7.5 MG PO SCH (17:57)
[2017-02-26] MEDS: amLODIPine TAB* 5 MG PO SCH (17:58)
[2017-02-26] MEDS: Cefepime 2 GM in Dextrose(*) 2 GM/50 ML BAG IV SCH (17:58)
--- NOTE | 2017-02-26 23:29 | CONS ---
CONSULTATION REPORT: DATE OF CONSULTATION: 02/26/17 REQUESTING PHYSICIAN: Dr. Cervantes. CONSULTING SERVICE: Infectious Disease. REASON FOR CONSULTATION: Right 2nd toe cellulitis and osteomyelitis. IMPRESSION: 1. Right 2nd toe grossly distorted by chronic osteomyelitis, myositis, cellulitis and there is a ch ronic non-pressure related ulcer at the tip of the toe. 2. Peripheral vascular disease. 3. Diabetes with neuropathy. 4. Morbid obesity. 5. Chronic kidney disease. RECOMMENDATIONS: 1. I took a swab superficially to check for what type of bacteria reside in this likely polymicrobi al infection. 2. Given the propensity for acute kidney injury with a combination of vancomycin and Zosyn, we will change the Zosyn to cefepime while awaiting the culture results. He is to have further vascular jasper luation and MRI. I will discuss the case with Dr. Mckee and try and coordinate antibiotics regar ding surgical treatment as well. HISTORY OF PRESENT ILLNESS: A 51-year-old man with vascular disease and obesity, admitted with righ t foot pain and swelling. Over the last week, he noticed some redness and then some pale discolorat ion of the foot, became more of an ulceration of the tip of the 2nd toe. He was on Keflex as an out patient for about a week without much change. He was seen in the wound clinic, they routed him to [facility] emergency room. He has been on vancomycin and Zosyn here the last couple of days and x-ray showe d the 2nd toe bound to be intact, but some soft tissue swelling. He has had an VINCENZO, which was abnor mal due to calcification. His white count was 19 on admission, down to 17 today. His creatinine is up from 1.6 on admission to 1.74, which appears to be slightly higher than his baseline looking ruma k his records over the last year and a half. Blood cultures are negative. He is afebrile. He othe rwise feels well. PAST MEDICAL HISTORY: 1. Chronic kidney disease. 2. Morbid obesity. 3. Diabetes with neuropathy. 4. Chronic hypoxemic respiratory failure. 5. Atrial fibrillation. 6. Diastolic congestive heart failure. 7. Obstructive sleep apnea, on CPAP. 8. Hypothyroidism. 9. COPD. MEDICATIONS: 1. Albuterol. 2. Allopurinol. 3. Lipitor. 4. Diltiazem. 5. Fluticasone nasal spray. 6. Insulin NPH. 7. Levothyroxine. 8. Metoprolol. 9. Zosyn 3.375 g every 6 hours. 10. Spironolactone. 11. Vancomycin 1250 mg every 8 hours. 12. Warfarin. 13. Amlodipine. 14. Oxycodone. ALLERGIES: TIGECYCLINE caused a rash. SOCIAL HISTORY: He lives outside of [place]. No travel. No sick contacts. FAMILY HISTORY: Father with heart disease. Father and sister had diabetes. REVIEW OF SYSTEMS: A 14-point review of systems was negative except as noted above. PHYSICAL EXAMINATION: Vital Signs: Temperature 37, heart rate 60, respiratory rate 16, blood press ure 180/50, O2 sat 97% on 5 L oxygen by nasal cannula. In general, he is awake, not distressed. Ne urologic: He is oriented x3. Follows the commands. HEENT: There is no conjunctival hemorrhage. Oropharynx without lesions. Neck: Neck is supple. Heart: Regular rate and rhythm without murmurs , rubs, or gallops. Lungs are clear to auscultation bilaterally. Abdomen is obese, nontender, nond istended. Skin: There is no splinter hemorrhage. Musculoskeletal: There is no spinal tenderness t o palpation. The right 2nd toe is diffusely edematous, no longer has normal toe morphology. At dis roxanna tip, there is a 1.5 cm oblong ulceration with some purulent drainage. The toenails obliterated. LABORATORY DATA: Creatinine is 1.7. CRP 100, down from 186. White blood cell count 17, hemoglobin 10.5, platelets 42. Please see impressions and recommendations as outlined above. Thank you for asking me to see Mr. Anderson in consultation. [id number]/CPS #: [id number]
[2017-02-27] MEDS: Cefepime 2 GM in Dextrose(*) 2 GM/50 ML BAG IV SCH ×2 (05:14→20:29)
[2017-02-27 05:46] LABS: Hematocrit 31 % (42-52); Mean Corpuscular HGB Conc 32 g/dl (31-36); Mean Corpuscular Hemoglobin 28 pg (27-31); Mean Corpuscular Volume 86 fL (80-94); Mean Platelet Volume 7 um3 (7.4-10.4); Red Blood Count 3.61 10^6/ul (4.0-5.4); Red Cell Distribution Width 17 % (10.5-15); White Blood Count 16.2 10^3/ul (3.5-10.8)
[2017-02-27 06:02] LABS: BUN/Creatinine Ratio 42.6 (8-20); Calcium 9.4 mg/dL (8.6-10.3); EGFR African American 52.6 (>60); EGFR Non-African American 40.9 (>60); Magnesium 1.7 mg/dL (1.9-2.7); Potassium 3.8 mmol/L (3.5-5.0)
[2017-02-27] MEDS: Vancomycin(*) 1,250 MG in NS 0.9% 250 ML* 250 ML IVPB SCH ×4 (06:16→22:44)
[2017-02-27] MEDS: Levothyroxine TAB* 100 MCG TAB PO SCH (06:16)
[2017-02-27] MEDS: Albuterol 2.5 MG/3 ML NEB.SOL* (0.083%) INH PRN (07:28)
--- NOTE | 2017-02-27 07:48 | RAD ---
Indication: RIGHT leg swelling, foul smell, redness for one week. Assess for osteomyelitis. Comparison: February 24, 2017 radiographs. July 31, 2006 MRI RIGHT hindfoot. Technique: [employer] 1.5 Tayler IC834X with GEM suite. MRI RIGHT foot with T1 and inversion recovery multiplanar series. Report: Diffuse subcutaneous edema. No loculated abscess collection evident. Based on correlation with radiographs there is loss of the longitudinal arch of the foot and partial collapse of the mid foot/tarsal metatarsal articulations typical for Charcot arthropathy. Associated erosion of the distal aspect of the lateral cuneiform as well as the bases of the third and fourth metatarsals and smaller erosion at the distal margin of the cuboid bone. There is marrow edema and subchondral cystic change flanking the middle facet of the subtalar joint. No acute fracture plane evident. Negative for specific stigmata of avascular necrosis. Negative for significant joint effusions. Diffuse advanced skeletal muscle atrophy. IMPRESSION: 1. Extensive soft tissue edema without evidence for loculated abscess. 2. The morphologic and signal changes at the tarsometatarsal articulations is most suggestive of advanced Charcot arthropathy. However as osteomyelitis is not excluded given the marrow signal changes if clinically indicated consider tissue sampling for microbiology assessment.
[2017-02-27] MEDS: Insulin LISPRO* 1 UNITS UNIT SUBCUT SCH ×4 (09:02→20:33)
[2017-02-27] MEDS: Insulin NPH(*) 1 UNITS UNIT SUBCUT SCH ×2 (09:02→18:15)
[2017-02-27] MEDS: Torsemide TAB* 20 MG PO SCH ×2 (09:02→20:37)
[2017-02-27] MEDS: Diltiazem CD CAP* 180 MG PO SCH (09:03)
[2017-02-27] MEDS: Metoprolol Tartrate TAB* 25 MG PO SCH ×2 (09:03→20:36)
[2017-02-27] MEDS: amLODIPine TAB* 5 MG PO SCH (09:03)
[2017-02-27] MEDS: Atorvastatin* 40 MG TAB PO SCH (09:03)
[2017-02-27] MEDS: Allopurinol TAB* 300 MG PO SCH (09:03)
[2017-02-27] MEDS: Metolazone TAB* 5 MG PO SCH (09:03)
[2017-02-27] MEDS: Spironolactone TAB* 25 MG PO SCH (09:03)
[2017-02-27] MEDS: Fluticasone NASAL SPRAY 50MCG* 16 gm SPRAY BTL BOTH NARES SCH (09:14)
[2017-02-27] MEDS: Collagenase 250 MG/GM OINT* 30 GM TOPICAL SCH (09:17)
--- NOTE | 2017-02-27 09:45 | RAD ---
Indication: Poor healing in the right toe. Duplex Doppler sonography of the right lower extremity arterial system was performed. The study is limited due to patient's body habitus. Interrogation of the right common femoral artery demonstrates a peak systolic velocity of 166 cm/s. Doppler interrogation of the femoral artery proximally is 165 cm/s, in its midportion is 234 cm/s in its distal portion is 220 cm/s. There is elevated velocity in the mid and distal superficial femoral artery with spectral broadening and a stenosis is not excluded. Interrogation of the right popliteal artery demonstrates peak systolic velocity of 109 cm/s, posterior tibial artery demonstrates peak systolic velocity of 120 20 cm/s. Peroneal artery demonstrates peak systolic velocity of 89 cm/s. Anterior tibial artery demonstrates peak systolic velocity of 84 cm/s. IMPRESSION: Elevated velocities in the right superficial femoral artery mid and distal portion with spectral broadening. Stenosis cannot BE excluded.
[2017-02-27] MEDS ORDERED: Magnesium Sulfate 2 GM IV* 2 GM/50 ML BAG IVPB ONE (14:15)
--- NOTE | 2017-02-27 14:23 | PN ---
Subjective Date of Service: 02/27/17 Interval History: Patient seen and examined at bedside. Patient states sugars elevated today. Toe feels better. Afebrile. Moving bowels without difficulty. Family History: Unchanged from Admission Social History: Unchanged from Admission Past Medical History: Unchanged from Admission Objective Active Medications: Albuterol (Ventolin 2.5 Mg/3 Ml Neb.Christy*) 2.5 mg INH Q4H PRN Allopurinol (Zyloprim Tab*) 600 mg PO DAILY [facility] Amlodipine Besylate (Norvasc Tab*) 5 mg PO DAILY [facility] Atorvastatin Calcium (Lipitor*) 40 mg PO DAILY [facility] Collagenase (Santyl 250 Mg/Gm Oint*) 1 applic TOPICAL DAILY [facility] Dextrose (D50w Syringe 50 Ml*) 12.5 gm IV PUSH .FOR FS < 60 - SS PRN Diltiazem HCl (Cardizem Cd Cap*) 360 mg PO DAILY [facility] Fluticasone Propionate (Flonase Nasal [place] 50mcg*) 2 spray BOTH NARES DAILY [facility] Vancomycin HCl 1,250 mg/ (Sodium Chloride) 250 mls @ 166.667 mls/hr IVPB Q8H [facility] Cefepime HCl (Maxipime 2 Gm In Dextrose Duplex (*)) 2 gm in 50 mls @ 100 mls/ hr IV Q12H [facility] Magnesium Sulfate (Magnesium Sulfate 2 Gm Iv*) 2 gm in 50 mls @ 50 mls/hr IVPB ONCE ONE Insulin Human Lispro (Humalog*) 0 units SUBCUT ACHS [facility] Insulin Human NPH (Insulin Nph(*)) 60 units SUBCUT 0700,1800 [facility] Levothyroxine Sodium (Synthroid Tab*) 200 mcg PO QAM@0600 [facility] Metolazone (Zaroxolyn Tab*) 5 mg PO DAILY [facility] Metoprolol Tartrate (Lopressor Tab*) 25 mg PO BID [facility] Morphine Sulfate (Morphine Inj (Syringe)*) 2 mg IV Q2H PRN Oxycodone HCl (Roxycodone Tab*) 5 mg PO Q4H PRN Pharmacy Consult (Vancomycin Per Pharmacy*) 1 note FOLLOW UP . PRN Pharmacy Profile Note (Coumadin Daily Reminder*) 1 note FOLLOW UP 1700 [facility] Pharmacy Profile Note (Vancomycin Trough Check) 1 note FOLLOW UP 0500 [facility] Spironolactone (Aldactone Tab*) 50 mg PO DAILY [facility] Torsemide (Demadex*) 40 mg PO BID [facility] Warfarin Sodium (Coumadin Tab(*)) 15 mg PO SuMoTuThFrSa@1700 [facility] Warfarin Sodium (Coumadin Tab(*)) 7.5 mg PO We@1700 [facility] 02/27/17 02/27/17 02/27/17 07:30 08:00 11:11 Temperature 98.5 F Pulse Rate 75 75 Respiratory 16 16 20 Rate Blood Pressure 155/78 (mmHg) O2 Sat by Pulse 97 97 99 Oximetry Oxygen Devices in Use Now: Nasal Cannula Appearance: sitting up in bed, NAD Eyes: No Scleral Icterus, PERRLA Ears/Nose/Mouth/Throat: NL Teeth, Lips, Gums, Mucous Membranes Moist Neck: NL Appearance and Movements; NL JVP Respiratory: Symmetrical Chest Expansion and Respiratory Effort, Clear to Auscultation Cardiovascular: NL Sounds; No Murmurs; No JVD, RRR Abdominal: NL Sounds; No Tenderness; No Distention Extremities: No Edema Skin: No Rash or Ulcers Neurological: Alert and Oriented x 3, NL Muscle Strength and Tone Lines/Tubes/Other Access: Clean, Dry and Intact Peripheral IV Nutrition: Taking PO's Result Diagrams: 02/27/17 04:57 02/27/17 04:57 Assess/Plan/Problems-Billing 51 year old male PMH IDDM, morbid obesity(BMI 63), Afib (coumadin), chronic hypoxic respiratory failure(5L) p/w 2nd toe ulcer. On IV antibiotics. - Patient Problems (1) Diabetic foot ulcer Comment: Appreciate Ortho, ID and IR. Abx changed to cefepime and vancomycin. Patient would prefer to have tow removed rather than a vascular evaluation which is reasonable. MRI shows possible transmet osteo. Arterial duplex non- diagnostic. Hold on transfer and plan for Ortho to debride/amp R toe on . Hold warfarin. (2) Acute on chronic diastolic (congestive) heart failure Comment: Improving. Continue torsemide 40mg po BID, 5mg metolazone daily, spironolactone 50mg daily. Daily Weights. (3) CKD (chronic kidney disease) stage 3, GFR 30-59 ml/min Comment: Stable. CR 1.79 (4) COPD (chronic obstructive pulmonary disease) Comment: Stable; On 5 L 02 at home. Not wheezing/SOB noted (5) Gout Comment: Continue allopurinol 600mg daily. (6) Hypertension Comment: Improved with Norvasc. Continue diltiazem 360mg, torsemide 40mg po BID , 5 metolazone daily, spironolactone 50mg daily. (7) Insulin dependent diabetes mellitus Comment: Home was 70/30 80units BID. Will increase to 60 NPH with high dose SSI qachs, POCT qachs (8) DVT prophylaxis Comment: Hold warfarin. Will start SQ Heparin when INR<2.0 (9) Full code status Status and Disposition: Inpatient. Plan for OR on . Continue IV antibiotics.
[2017-02-27] MEDS: Morphine INJ* 2 MG/ML 1 ML SYRINGE (TWO MG - NEW SYRINGE VERSION) IV PRN (16:35)
[2017-02-28] MEDS ORDERED: Vancomycin Trough Check NOTE FOLLOW UP ONE ×2 (05:00→19:30)
[2017-02-28] MEDS: Morphine INJ* 2 MG/ML 1 ML SYRINGE (TWO MG - NEW SYRINGE VERSION) IV PRN ×2 (05:14→18:52)
[2017-02-28] MEDS: Cefepime 2 GM in Dextrose(*) 2 GM/50 ML BAG IV SCH ×2 (05:22→17:46)
[2017-02-28] MEDS: Levothyroxine TAB* 100 MCG TAB PO SCH ×2 (06:27→08:35)
[2017-02-28 07:00] LABS: Hematocrit 32 % (42-52); Mean Corpuscular HGB Conc 32 g/dl (31-36); Mean Corpuscular Hemoglobin 27 pg (27-31); Mean Corpuscular Volume 86 fL (80-94); Mean Platelet Volume 7 um3 (7.4-10.4); Red Cell Distribution Width 17 % (10.5-15); White Blood Count 13.4 10^3/ul (3.5-10.8)
[2017-02-28 07:16] LABS: BUN/Creatinine Ratio 48.1 (8-20); Calcium 9.2 mg/dL (8.6-10.3); EGFR African American 60.4 (>60); Magnesium 1.6 mg/dL (1.9-2.7); Potassium 4.2 mmol/L (3.5-5.0)
[2017-02-28] MEDS: Vancomycin(*) 1,250 MG in NS 0.9% 250 ML* 250 ML IVPB SCH (07:25)
[2017-02-28] MEDS ORDERED: Magnesium Sulf 4 GM/100 ML IV* 4,000 MG/100 ML BAG IVPB ONE (07:26)
[2017-02-28] MEDS: Fluticasone NASAL SPRAY 50MCG* 16 gm SPRAY BTL BOTH NARES SCH (08:35)
[2017-02-28] MEDS: Insulin NPH(*) 1 UNITS UNIT SUBCUT SCH ×2 (08:35→17:46)
[2017-02-28] MEDS: Spironolactone TAB* 25 MG PO SCH (08:36)
[2017-02-28] MEDS: Torsemide TAB* 20 MG PO SCH ×2 (08:36→21:04)
[2017-02-28] MEDS: amLODIPine TAB* 5 MG PO SCH (08:36)
[2017-02-28] MEDS: Insulin LISPRO* 1 UNITS UNIT SUBCUT SCH ×4 (08:36→20:57)
[2017-02-28] MEDS: Diltiazem CD CAP* 180 MG PO SCH (08:36)
[2017-02-28] MEDS: Metolazone TAB* 5 MG PO SCH (08:36)
[2017-02-28] MEDS: Metoprolol Tartrate TAB* 25 MG PO SCH ×2 (08:36→21:03)
[2017-02-28] MEDS: Atorvastatin* 40 MG TAB PO SCH (08:36)
[2017-02-28] MEDS: Allopurinol TAB* 300 MG PO SCH (08:36)
[2017-02-28] MEDS: Collagenase 250 MG/GM OINT* 30 GM TOPICAL SCH (08:37)
[2017-02-28] MEDS ORDERED: Phytonadione Oral Solution* 5 MG/25 ML UDC PO ONE ×2 (08:58→12:00)
--- NOTE | 2017-02-28 10:00 | PN ---
Progress Note - Progress Note Date of Service: 02/28/17 SOAP: Subjective: Patient without complaints. He expressed his desire to have a toe amputation. [] Objective: Temp Pulse Resp BP Pulse Ox 98.1 F 68 18 152/51 99 02/28/17 07:59 02/28/17 07:59 02/28/17 08:00 02/28/17 07:59 02/28/17 08:00 Right lower extremity: Chronic edema and venous stasis changes. Foot pulses not palpable. Decreased sensation. Right second toe with ulcer, edema, erythema, malodorous. INR 2.5 [] Assessment/Plan:, 51-year-old man with diabetic neuropathy and right second toe ulcer with likely underlying osteomyelitis. We discussed treatment options at length today again. Both nonoperative, as well as operative options were discussed. We discussed the risks and benefits, pros and cons of each. After this discussion, he expressed his desire to move forward with a right second toe amputation. He explained that he wanted to take care of this and the most definitive way. I feel this is reasonable given the circumstances. After reviewing all of these factors, we discussed at length the pros/cons and potential risks and benefits of surgery. Surgical risks reviewed included but were not limited to persistent/recurrent infection, failure of healing, nerve injury, recurrent problems, neuroma, deep venous thrombosis or pulmonary embolism, chronic regional pain sydrome (reflex sympathetic dystrophy), failure to return to previous functional level, failure of the surgery, need for furtghher surgery and also the remote risk of catastrophic complications including loss of limb or . After this extensive discussion the patient expressed their desire to move forward with surgery. All questions were answered. Specifically, the surgical plan will be for a right 2nd toe amputation. Please give vitamin K, and have FFP ready if needed preoperatively. Please keep n.p.o. at midnight tonight for likely OR tomorrow. over 35 min. was spent [id number] with the patient this morning, and over half of this was on counseling and coordination of care. Jose Mckee MD. []
--- NOTE | 2017-02-28 10:15 | PN ---
Subjective Date of Service: 02/28/17 Interval History: Patient seen and examined at bedside. Patient denies SOB, pain, fever. Family History: Unchanged from Admission Social History: Unchanged from Admission Past Medical History: Unchanged from Admission Objective Active Medications: Albuterol (Ventolin 2.5 Mg/3 Ml Neb.Christy*) 2.5 mg INH Q4H PRN Allopurinol (Zyloprim Tab*) 600 mg PO DAILY [facility] Amlodipine Besylate (Norvasc Tab*) 5 mg PO DAILY [facility] Atorvastatin Calcium (Lipitor*) 40 mg PO DAILY [facility] Collagenase (Santyl 250 Mg/Gm Oint*) 1 applic TOPICAL DAILY [facility] Dextrose (D50w Syringe 50 Ml*) 12.5 gm IV PUSH .FOR FS < 60 - SS PRN Diltiazem HCl (Cardizem Cd Cap*) 360 mg PO DA[facility] Fluticasone Propionate (Flonase Nasal [place] 50mcg*) 2 spray BOTH NARES DAILY [facility] Cefepime HCl (Maxipime 2 Gm In Dextrose Duplex (*)) 2 gm in 50 mls @ 100 mls/ hr IV Q12H [facility] Magnesium Sulfate (Magnesium Sulf 4 Gm/100 Ml Iv*) 4,000 mg in 100 mls @ 33.333 mls/hr IVPB ONCE ONE Vancomycin HCl 1,000 mg/ (Sodium Chloride) 250 mls @ 166.667 mls/hr IVPB Q8H [facility] Insulin Human Lispro (Humalog*) 0 units SUBCUT ACHS [facility] Insulin Human NPH (Insulin Nph(*)) 60 units SUBCUT 0700,1800 [facility] Levothyroxine Sodium (Synthroid Tab*) 200 mcg PO 0600 [facility] Metolazone (Zaroxolyn Tab*) 5 mg PO DAILY [facility] Metoprolol Tartrate (Lopressor Tab*) 25 mg PO BID [facility] Morphine Sulfate (Morphine Inj (Syringe)*) 2 mg IV Q2H PRN Oxycodone HCl (Roxycodone Tab*) 5 mg PO Q4H PRN Pharmacy Consult (Vancomycin Per Pharmacy*) 1 note FOLLOW UP . PRN Pharmacy Profile Note (Vancomycin Trough Check) 1 note FOLLOW UP 1929 ONE Spironolactone (Aldactone Tab*) 50 mg PO DAILY [facility] Torsemide (Demadex*) 40 mg PO BID [facility] Vital Signs 02/27/17 02/27/17 02/27/17 11:11 15:13 16:10 Temperature 98.5 F 98.6 F Pulse Rate 75 75 72 Respiratory 20 19 24 Rate Blood Pressure 155/78 139/75 (mmHg) O2 Sat by Pulse 99 99 97 Oximetry 02/27/17 02/27/17 02/27/17 16:35 17:35 19:38 Temperature Pulse Rate 74 Respiratory 20 18 22 Rate Blood Pressure 142/55 (mmHg) O2 Sat by Pulse 97 Oximetry 02/27/17 02/27/17 02/27/17 19:45 19:58 20:00 Temperature 96.8 F 98.4 F Pulse Rate Respiratory 22 Rate Blood Pressure (mmHg) O2 Sat by Pulse 98 Oximetry 02/27/17 02/28/17 02/28/17 23:28 05:00 05:14 Temperature 98.6 F 97.9 F Pulse Rate 77 70 Respiratory 16 16 16 Rate Blood Pressure 162/62 118/59 (mmHg) O2 Sat by Pulse 98 98 Oximetry 02/28/17 02/28/17 02/28/17 06:14 07:59 08:00 Temperature 98.1 F Pulse Rate 68 Respiratory 16 18 18 Rate Blood Pressure 152/51 (mmHg) O2 Sat by Pulse 99 99 Oximetry Oxygen Devices in Use Now: Nasal Cannula Appearance: sitting up in chair, NAD Eyes: No Scleral Icterus, PERRLA Ears/Nose/Mouth/Throat: NL Teeth, Lips, Gums Neck: NL Appearance and Movements; NL JVP Respiratory: Symmetrical Chest Expansion and Respiratory Effort, Clear to Auscultation Cardiovascular: NL Sounds; No Murmurs; No JVD, RRR Extremities: No Edema Skin: - - R 2nd toe erythematous and malodorous; no streaking up foot. Neurological: Alert and Oriented x 3, NL Muscle Strength and Tone Lines/Tubes/Other Access: Clean, Dry and Intact Peripheral IV Result Diagrams: 02/28/17 05:27 02/28/17 05:27 Assess/Plan/Problems-Billing 51 year old male H IDDM, morbid obesity(BMI 63), Afib (coumadin), chronic hypoxic respiratory failure(5L) p/w 2nd toe ulcer. On IV antibiotics. - Patient Problems (1) Diabetic foot ulcer Comment: Appreciate Ortho, ID and IR. Continue cefepime and vancomycin. Plan for R toe amp tomorrow with Ortho. Give 5mg vitamin K now and hold warfarin. Labs in AM as well as Type and Screen. (2) Acute on chronic diastolic (congestive) heart failure Comment: Resolved. Continue torsemide 40mg po BID, 5mg metolazone daily, spironolactone 50mg daily. Daily Weights. (3) CKD (chronic kidney disease) stage 3, GFR 30-59 ml/min Comment: Stable. CR 1.5 (4) COPD (chronic obstructive pulmonary disease) Comment: Stable; On 5 L 02 at home. Not wheezing/SOB noted (5) Gout Comment: Continue allopurinol 600mg daily. (6) Hypertension Comment: Improved with Norvasc. Continue diltiazem 360mg, torsemide 40mg po BID , 5 metolazone daily, spironolactone 50mg daily. (7) Insulin dependent diabetes mellitus Comment: Home was 70/30 80units BID. COntinue 60 units of NPH with high dose SSI qachs, POCT qachs (8) DVT prophylaxis Comment: Hold warfarin. Will start SQ Heparin when INR<2.0 (9) Full code status Status and Disposition: Inpatient. Plan for OR on . Continue IV antibiotics.
[2017-02-28] MEDS: Vancomycin(*) 1,000 MG in NS 0.9% 250 ML* 250 ML IVPB SCH ×2 (13:43→20:50)
[2017-02-28] MEDS ORDERED: Warfarin TAB(*) 7.5 MG PO SCH (17:00)
[2017-03-01] MEDS ORDERED: Simethicone TAB* 80 MG TAB.CHEW PO ONE (02:04)
[2017-03-01] MEDS: Vancomycin(*) 1,000 MG in NS 0.9% 250 ML* 250 ML IVPB SCH ×3 (04:12→20:06)
[2017-03-01] MEDS: Levothyroxine TAB* 100 MCG TAB PO SCH (05:59)
[2017-03-01] MEDS: Cefepime 2 GM in Dextrose(*) 2 GM/50 ML BAG IV SCH (06:35)
[2017-03-01 06:57] LABS: Hematocrit 33 % (42-52); Hemoglobin 10.5 g/dl (14.0-18.0); Mean Corpuscular HGB Conc 32 g/dl (31-36); Mean Corpuscular Hemoglobin 27 pg (27-31); Mean Corpuscular Volume 86 fL (80-94); Mean Platelet Volume 7 um3 (7.4-10.4); Red Blood Count 3.87 10^6/ul (4.0-5.4); Red Cell Distribution Width 17 % (10.5-15); White Blood Count 16.4 10^3/ul (3.5-10.8)
[2017-03-01 07:06] LABS: Add Diff/Slide Review? Slide Review Added; Comments Flag Yes
[2017-03-01 07:19] LABS: Calcium 9.5 mg/dL (8.6-10.3); EGFR African American 60.9 (>60); EGFR Non-African American 47.3 (>60); Magnesium 1.7 mg/dL (1.9-2.7); Potassium 4.2 mmol/L (3.5-5.0)
[2017-03-01] MEDS: Insulin LISPRO* 1 UNITS UNIT SUBCUT SCH ×4 (07:32→21:13)
[2017-03-01] MEDS ORDERED: Magnesium Sulf 4 GM/100 ML IV* 4,000 MG/100 ML BAG IVPB ONE ×2 (07:37→18:00)
[2017-03-01] MEDS ORDERED: Insulin NPH(*) 1 UNITS UNIT SUBCUT ONE (07:46)
[2017-03-01] MEDS: Insulin NPH(*) 1 UNITS UNIT SUBCUT SCH ×2 (07:48→17:41)
[2017-03-01 08:17] LABS: Immature Granulocytes 2 % (0-9); Metamyelocytes % 1 % (0-2); Myelocytes % 1 % (0-1); Neutrophil % 82 % (38-83); RBC Morphology Normal (Normal); Reactive Lymph % 3 % (0-6)
[2017-03-01] MEDS: Allopurinol TAB* 300 MG PO SCH (09:05)
[2017-03-01] MEDS: amLODIPine TAB* 5 MG PO SCH (09:06)
[2017-03-01] MEDS: Diltiazem CD CAP* 180 MG PO SCH (09:07)
[2017-03-01] MEDS: Atorvastatin* 40 MG TAB PO SCH (09:07)
[2017-03-01] MEDS: Torsemide TAB* 20 MG PO SCH ×2 (09:08→21:04)
[2017-03-01] MEDS: Spironolactone TAB* 25 MG PO SCH (09:08)
[2017-03-01] MEDS: Metoprolol Tartrate TAB* 25 MG PO SCH ×2 (09:08→21:04)
[2017-03-01] MEDS: Metolazone TAB* 5 MG PO SCH (09:08)
[2017-03-01] MEDS ORDERED: fentaNYL* 50 MCG/ML 2 ML VIAL (100 MCG VIAL) ONE (09:11)
[2017-03-01] MEDS: Fluticasone NASAL SPRAY 50MCG* 16 gm SPRAY BTL BOTH NARES SCH (09:11)
[2017-03-01] MEDS ORDERED: Midazolam* 1 MG/ML 5 ML VIAL (5 MG) ONE (09:11)
[2017-03-01] MEDS: Collagenase 250 MG/GM OINT* 30 GM TOPICAL SCH (09:34)
[2017-03-01] MEDS ORDERED: Bupivacaine 0.5% SDV PF* 30 ML VIAL ONE (09:45)
[2017-03-01] MEDS ORDERED: Bupivacaine 0.25% SDV* 30 ML ONE (09:45)
--- NOTE | 2017-03-01 16:24 | PN ---
Subjective Date of Service: 03/01/17 Interval History: This is a 51 yo male with IDDM, morbid obesity and afib who was admitted with an infected foot ulcer requiring amputation of his R 2nd toe. He is POD #0, procedure was completed earlier today with Dr Mckee. Patient tolerated the procedure well and he offers no real complaints postoperatively. No surgical site pain. No c/o CP, SOB, abd pain, n/v. Objective Active Medications: Albuterol (Ventolin 2.5 Mg/3 Ml Neb.Christy*) 2.5 mg INH Q4H PRN PRN Reason: SHORTNESS OF BREATH Last Admin: 02/27/17 07:28 Dose: 2.5 mg Allopurinol (Zyloprim Tab*) 600 mg PO DAILY [facility] Last Admin: 03/01/17 09:05 Dose: 600 mg Amlodipine Besylate (Norvasc Tab*) 5 mg PO DAILY [facility] Last Admin: 03/01/17 09:06 Dose: 5 mg Atorvastatin Calcium (Lipitor*) 40 mg PO DAILY [facility] Last Admin: 03/01/17 09:07 Dose: 40 mg Collagenase (Santyl 250 Mg/Gm Oint*) 1 applic TOPICAL DAILY [facility] Last Admin: 03/01/17 09:34 Dose: Not Given Dextrose (D50w Syringe 50 Ml*) 12.5 gm IV PUSH .FOR FS < 60 - SS PRN PRN Reason: FS < 60 Diltiazem HCl (Cardizem Cd Cap*) 360 mg PO DAILY [facility] Last Admin: 03/01/17 09:07 Dose: 360 mg Fluticasone Propionate (Flonase Nasal [place] 50mcg*) 2 spray BOTH NARES DAILY [facility] Last Admin: 03/01/17 09:11 Dose: 2 spray Vancomycin HCl 1,000 mg/ (Sodium Chloride) 250 mls @ 166.667 mls/hr IVPB Q8H [facility] Last Admin: 03/01/17 13:00 Dose: 166.667 mls/hr Magnesium Sulfate (Magnesium Sulf 4 Gm/100 Ml Iv*) 4,000 mg in 100 mls @ 33.333 mls/hr IVPB ONCE ONE Stop: 03/01/17 20:59 Insulin Human Lispro (Humalog*) 0 units SUBCUT ACHS [facility] PRN Reason: Protocol Last Admin: 03/01/17 13:27 Dose: 3 units Insulin Human NPH (Insulin Nph(*)) 60 units SUBCUT 0700,1800 [facility] Last Admin: 03/01/17 07:48 Dose: Not Given Levothyroxine Sodium (Synthroid Tab*) 200 mcg PO 0600 [facility] Last Admin: 03/01/17 05:59 Dose: 200 mcg Metolazone (Zaroxolyn Tab*) 5 mg PO DAILY [facility] Last Admin: 03/01/17 09:08 Dose: 5 mg Metoprolol Tartrate (Lopressor Tab*) 25 mg PO BID [facility] Last Admin: 03/01/17 09:08 Dose: 25 mg Morphine Sulfate (Morphine Inj (Syringe)*) 2 mg IV Q2H PRN PRN Reason: PAIN Last Admin: 02/28/17 18:52 Dose: 2 mg Oxycodone HCl (Roxycodone Tab*) 5 mg PO Q4H PRN PRN Reason: PAIN Last Admin: 02/26/17 13:38 Dose: 5 mg Pharmacy Consult (Vancomycin Per Pharmacy*) 1 note FOLLOW UP . PRN PRN Reason: PER PROTOCOL Pharmacy Profile Note (Vancomycin Trough Check) 1 note FOLLOW UP 193 ONE Stop: 03/01/17 19:31 Spironolactone (Aldactone Tab*) 50 mg PO DAILY [facility] Last Admin: 03/01/17 09:08 Dose: 50 mg Torsemide (Demadex*) 40 mg PO BID [facility] Last Admin: 03/01/17 09:08 Dose: 40 mg Warfarin Sodium (Coumadin Tab(*)) 15 mg PO DAILY@1700 [facility] PRN Reason: Protocol Vital Signs: Temp Pulse Resp BP Pulse Ox 98.0 F 66 16 136/55 100 03/01/17 14:32 03/01/17 14:32 03/01/17 14:32 03/01/17 14:32 03/01/17 14:32 Oxygen Devices in Use Now: Nasal Cannula Appearance: Well appearing obese male in NAD Respiratory: Symmetrical Chest Expansion and Respiratory Effort, Clear to Auscultation Cardiovascular: NL Sounds; No Murmurs; No JVD, RRR Abdominal: NL Sounds; No Tenderness; No Distention Extremities: - - 1+ LE edema, non-pitting Skin: - - chronic hyperpigmentation of both lower extremities, surgical dressing in place over R foot Neurological: Alert and Oriented x 3 Result Diagrams: 03/01/17 06:44 03/01/17 06:44 Additional Lab and Data: . Microbiology and Other Data: Microbiology 02/23/17 17:25 Blood Venous Aerobic Blood Culture - Preliminary No Growth Day 1 02/23/17 17:25 Blood Venous Anaerobic Blood Culture - Preliminary No Growth Day 1 02/23/17 17:06 Blood Venous Aerobic Blood Culture - Preliminary No Growth Day 1 02/23/17 17:06 Blood Venous Anaerobic Blood Culture - Preliminary No Growth Day 1 02/24/17 05:30 Nasal Nasal Screen MRSA (PCR)(JEAN CARLOS) - Final Mrsa Positive Assess/Plan/Problems-Billing 51 year old male H IDDM, morbid obesity(BMI 63), Afib (coumadin), chronic hypoxic respiratory failure(5L) p/w 2nd toe ulcer. On IV antibiotics. - Patient Problems (1) Diabetic foot ulcer Comment: POD #0 s/p R 2nd toe amputation Appreciate Ortho, ID and IR Continue cefepime and vancomycin Deep cultures collected intraoperatively, results pending Will defer to ID recommendations on length of abx therapy (2) Acute on chronic diastolic (congestive) heart failure Comment: Resolved Continue torsemide 40mg po BID, 5mg metolazone daily, spironolactone 50mg daily. Daily Weights. (3) Chronic respiratory failure Comment: Stable Secondary to COPD and likely obesity hypoventilation syndrome 5L NS at baseline (4) Atrial fibrillation Comment: Rate controlled Anticoagulated with Coumadin which was held for surgery, but now restarted No bridge necessary Monitor daily INR (5) CKD (chronic kidney disease) stage 3, GFR 30-59 ml/min Comment: Stable. CR 1.5 (6) COPD (chronic obstructive pulmonary disease) Comment: Stable; On 5 L 02 at home. Not wheezing/SOB noted (7) Hypertension Comment: Improved with Norvasc. Continue diltiazem 360mg, torsemide 40mg po BID, 5 metolazone daily, spironolactone 50mg daily. (8) Morbid obesity Comment: BMI 62 (9) Insulin dependent diabetes mellitus Comment: Continue 60 units of NPH at this time with additional SS mealtime coverage, can like titrate back to home dosing now that he is postop Home insulin dose NPH 70/30 80units BID. (10) Gout Comment: Continue allopurinol 600mg daily. (11) DVT prophylaxis Comment: Coumadin restarted (12) Full code status Status and Disposition: Inpatient. Coordinate length of abx with ID, but anticipate dc over the weekend
[2017-03-01] MEDS: Warfarin TAB(*) 10 MG PO SCH (16:48)
[2017-03-01] MEDS ORDERED: Calcium Carbonate CHEW TAB* 500 MG (TUMS) PO PRN (17:21)
[2017-03-01] MEDS ORDERED: Calcium Carbonate CHEW TAB* 500 MG (TUMS) ONE (17:25)
[2017-03-01] MEDS ORDERED: Vancomycin Trough Check NOTE FOLLOW UP ONE (19:30)
[2017-03-01] MEDS: Morphine INJ* 2 MG/ML 1 ML SYRINGE (TWO MG - NEW SYRINGE VERSION) IV PRN (21:04)
--- NOTE | 2017-03-02 02:26 | OP ---
OPERATIVE REPORT: DATE OF OPERATION: 03/01/17 - Inpatient, room SSU 351-01 DATE OF : 63 SURGEON: Jose Mckee MD HUMAN RESOURCES CLERK: RAI Sterling ANESTHESIOLOGIST: Dr. Kennedy. ANESTHESIA: MAC with digital block. PRE-OP DIAGNOSIS: Right second toe ulcer and infection. POST-OP DIAGNOSIS: Right second toe ulcer and infection. OPERATIVE PROCEDURE: Right second toe amputation at the MTP level. IMPLANTS: None. TOURNIQUET TIME: Less than 30 minutes with an ankle Esmarch tourniquet. SPECIMEN: Toe to pathology and deep culture swabs to micro. ESTIMATED BLOOD LOSS: Minimal. COMPLICATIONS: None. STATUS: Stable from the operating room to the recovery room and then back to the hospital floor. INDICATIONS: Bautista is a 51-year-old obese, diabetic man with peripheral neuropathy who developed a left second toe ulceration that has been worsening even on antibiotics. There is likely osteomyelitis underlying this. We did discuss nonoperative treatment of this as well as operative treatments and after the discussion, he expressed his desire to move forward with an amputation of the toe given his peripheral neuropathy and worried that this will only worsen. I found that this was a reasonable decision, so we moved forward with the toe amputation. We did discuss the nature and the risk of surgery at length in the hospital room as well as in the preoperative holding area. Our discussions regarding the risks of surgery included, but were not limited to persistent or worsening infection, recurrent wound problems or not healing, nerve injury, RSD, need for further surgery, need for further amputation and even the remote chance of a catastrophic complication such a loss of limb or . DESCRIPTION OF PROCEDURE: The patient was seen in the preoperative holding unit and informed consent was obtained. The appropriate extremity was marked. The patient was then brought to the operating room and carefully positioned on the operating room table. Anesthesia was induced, all bony prominences were padded with great care. A chlorhexidine based prescrub was performed followed by standard prep and drape in a sterile fashion utilizing ChloraPrep. A surgical safety pause was then conducted in which we confirmed the appropriate patient, extremity, planned procedure, availability of equipment, administration of antibiotics and DVT prophylaxis in the form of a compression boot on the nonsurgical extremity. We began with application of an ankle Esmarch tourniquet. I then made an incision to remove the second toe at the level of the MTP joint. I dissected down and removed the toe in its entirety. The toe was sent to pathology. At this point, we took deep culture swabs and sent to micro. The tourniquet was then removed and hemostasis was obtained. There was no significant bleeding encountered. Skin edges were pink. I closed with 3-0 Monocryl and then 3-0 Prolene. A sterile dressing was placed. The patient was awakened from anesthesia and transferred into recovery room in stable condition. Complications none. Needle and sponge counts correct at the end of the case. ATTESTATION: I attest that I was present and scrubbed and performed the procedure myself. POSTOPERATIVE PLAN: Bautista will remain heel weightbearing and while we are awaiting the wound to heal, antibiotics will be guided by the infectious disease service. Suture removal will be in 2 to 3 weeks if the wound has healed. [id number]/CPS #: [id number] MTDD
[2017-03-02] MEDS: Morphine INJ* 2 MG/ML 1 ML SYRINGE (TWO MG - NEW SYRINGE VERSION) IV PRN (05:54)
[2017-03-02] MEDS: Levothyroxine TAB* 100 MCG TAB PO SCH (05:55)
[2017-03-02 05:57] LABS: Add Diff/Slide Review? Slide Review Added; Comments Flag Yes; Hematocrit 31 % (42-52); Hemoglobin 9.8 g/dl (14.0-18.0); Mean Corpuscular HGB Conc 32 g/dl (31-36); Mean Corpuscular Hemoglobin 27 pg (27-31); Mean Corpuscular Volume 85 fL (80-94); Mean Platelet Volume 7 um3 (7.4-10.4); Red Blood Count 3.66 10^6/ul (4.0-5.4); Red Cell Distribution Width 17 % (10.5-15)
[2017-03-02] MEDS ORDERED: Vancomycin Random Level* NOTE FOLLOW UP ONE (06:00)
[2017-03-02 06:07] LABS: BUN/Creatinine Ratio 53.7 (8-20); Calcium 9.5 mg/dL (8.6-10.3); EGFR African American 64.7 (>60); EGFR Non-African American 50.3 (>60); Magnesium 1.9 mg/dL (1.9-2.7)
[2017-03-02 06:44] LABS: Vancomycin Random 21.2 mcg/mL
[2017-03-02] MEDS: Atorvastatin* 40 MG TAB PO SCH (09:28)
[2017-03-02] MEDS: Torsemide TAB* 20 MG PO SCH ×2 (09:28→21:59)
[2017-03-02] MEDS: amLODIPine TAB* 5 MG PO SCH (09:29)
[2017-03-02] MEDS: Spironolactone TAB* 25 MG PO SCH (09:29)
[2017-03-02] MEDS: Fluticasone NASAL SPRAY 50MCG* 16 gm SPRAY BTL BOTH NARES SCH (09:29)
[2017-03-02] MEDS: Allopurinol TAB* 300 MG PO SCH (09:29)
[2017-03-02] MEDS: Metoprolol Tartrate TAB* 25 MG PO SCH ×2 (09:29→21:59)
[2017-03-02] MEDS: Diltiazem CD CAP* 180 MG PO SCH (09:29)
[2017-03-02] MEDS: Insulin LISPRO* 1 UNITS UNIT SUBCUT SCH ×4 (09:30→21:59)
[2017-03-02] MEDS: Insulin NPH(*) 1 UNITS UNIT SUBCUT SCH ×2 (09:30→16:52)
--- NOTE | 2017-03-02 11:47 | PN ---
Progress Note - Progress Note Date of Service: 03/02/17 SOAP: Subjective: 51 y/o male s/p right 2nd toe including MTP amp 03/01/2017. Patient reports feeling well, no pain as patient had neuropathy prior to surgery. NO complaints, no questions about surgery. Patient not wearing post-op shoe Objective: General- Well appearing NAD, AO, MSK- Dressing intact, no drainage noted, + edema b/l LEs, R LE red, crusting skin noted. sensation to calf intact. + movement of great toe Vital Signs Temp 97.8 F 03/02/17 03:52 Pulse 65 03/02/17 04:14 Resp 16 03/02/17 12:06 BP 159/68 03/02/17 03:52 Pulse Ox 98 03/02/17 04:14 Intake & Output 03/01/17 03/02/17 03/02/17 18:59 06:59 18:59 Intake Total 1930 2630 320 Output Total 1000 3325 650 Balance 930 -695 -330 Weight 453 lb 11.2 oz Intake: IV Fluids 320 LR 300 NS (0.9%) 20 IVPB 270 ABX - VANCOMYCIN 270 Oral 1340 2630 320 Output: Urine 1000 3325 650 Other: Estimated Void Medium # Bowel Movements 1 0 Estimated Stool Amount Medium # Voids 1 Assessment: Stable 51 y/o male s/p right 2nd toe including MTP amp 03/01/2017. Plan: - Discussed need for post-op shoe when upright, ambulatory. - PICC today for possible DC Today, continue ABX- vanco only, controlled by Dr. Fierro - Follow up with Dr Miller for wound check next , if D/C over weekend , otherwise dressing change on Sunday - weight bearing as tolerated, heel weight bearing Active Medications Generic Name Dose Route Start Last Admin Trade Name Freq PRN Reason Stop Dose Admin Albuterol 2.5 mg 02/23/17 18:28 02/27/17 07:28 Ventolin 2.5 Mg/3 Ml Neb.Christy* INH 2.5 mg Q4H PRN Administration SHORTNESS OF BREATH Allopurinol 600 mg 02/24/17 09:00 03/02/17 09:29 Zyloprim Tab* PO 600 mg DAILY [facility] Administration Amlodipine Besylate 5 mg 02/26/17 16:00 03/02/17 09:29 Norvasc Tab* PO 5 mg DAILY [facility] Administration Atorvastatin Calcium 40 mg 02/23/17 19:00 03/02/17 09:28 Lipitor* PO 40 mg DAILY [facility] Administration Calcium Carbonate 500 mg 03/01/17 17:21 03/01/17 17:26 Tums* PO 500 mg Q4H PRN Administration INDIGESTION Collagenase 1 applic 02/26/17 16:00 03/01/17 09:34 Santyl 250 Mg/Gm Oint* TOPICAL Not Given DAILY [facility] Dextrose 12.5 gm 02/23/17 18:58 D50w Syringe 50 Ml* IV PUSH .FOR FS < 60 - SS PRN FS < 60 Diltiazem HCl 360 mg 02/23/17 18:30 03/02/17 09:29 Cardizem Cd Cap* PO 360 mg DAILY [facility] Administration Fluticasone Propionate 2 spray 02/24/17 09:00 03/02/17 09:29 Flonase Nasal [place] 50mcg* BOTH NARES 2 spray DAILY [facility] Administration Insulin Human Lispro 0 units 02/23/17 21:00 03/02/17 09:30 Humalog* SUBCUT 3 units ACHS [facility] Administration Protocol Insulin Human NPH 60 units 02/27/17 18:00 03/02/17 09:30 Insulin Nph(*) SUBCUT 60 unit 0700,1800 [facility] Administration Levothyroxine Sodium 200 mcg 02/28/17 06:30 03/02/17 05:55 Synthroid Tab* PO 200 mcg 0600 [facility] Administration Metolazone 5 mg 02/24/17 09:00 03/01/17 09:08 Zaroxolyn Tab* PO 5 mg DAILY [facility] Administration Metoprolol Tartrate 25 mg 02/23/17 21:00 03/02/17 09:29 Lopressor Tab* PO 25 mg BID [facility] Administration Morphine Sulfate 2 mg 02/24/17 03:16 03/02/17 05:54 Morphine Inj (Syringe)* IV 2 mg Q2H PRN Administration PAIN Oxycodone HCl 10 mg 03/02/17 09:36 Roxycodone Tab* PO Q4H PRN PAIN Pharmacy Consult 1 note 02/23/17 19:56 Vancomycin Per Pharmacy* FOLLOW UP . PRN PER PROTOCOL Spironolactone 50 mg 02/24/17 09:00 03/02/17 09:29 Aldactone Tab* PO 50 mg DAILY [facility] Administration Torsemide 40 mg 02/23/17 21:00 03/02/17 09:28 Demadex* PO 40 mg BID [facility] Administration Warfarin Sodium 15 mg 03/01/17 17:00 03/01/17 16:48 Coumadin Tab(*) PO 15 mg DAILY@1700 [facility] Administration Protocol <Chloe Evans - Last Filed: 03/02/17 12:14> - Progress Note SOAP: Subjective: [] Objective: [] Assessment: [] Plan: [] <Jose Mckee - Last Filed: 03/02/17 12:46>
[2017-03-02] MEDS: oxyCODONE TAB* 5 MG TAB PO PRN (12:06)
[2017-03-02] MEDS: Metolazone TAB* 5 MG PO SCH (12:07)
[2017-03-02] MEDS: Collagenase 250 MG/GM OINT* 30 GM TOPICAL SCH (12:13)
--- NOTE | 2017-03-02 13:41 | PN ---
Subjective Date of Service: 03/02/17 Interval History: Patient denies any acute concerns. No pain at surgical site. No CP, SOB, abd pain, n/v. ID recommends 2 weeks of IV Vanco post op. Objective Active Medications: Albuterol (Ventolin 2.5 Mg/3 Ml Neb.Christy*) 2.5 mg INH Q4H PRN PRN Reason: SHORTNESS OF BREATH Last Admin: 02/27/17 07:28 Dose: 2.5 mg Allopurinol (Zyloprim Tab*) 600 mg PO DAILY [facility] Last Admin: 03/02/17 09:29 Dose: 600 mg Amlodipine Besylate (Norvasc Tab*) 5 mg PO DAILY [facility] Last Admin: 03/02/17 09:29 Dose: 5 mg Atorvastatin Calcium (Lipitor*) 40 mg PO DAILY [facility] Last Admin: 03/02/17 09:28 Dose: 40 mg Calcium Carbonate (Tums*) 500 mg PO Q4H PRN PRN Reason: INDIGESTION Last Admin: 03/01/17 17:26 Dose: 500 mg Collagenase (Santyl 250 Mg/Gm Oint*) 1 applic TOPICAL DAILY [facility] Last Admin: 03/02/17 12:13 Dose: Not Given Dextrose (D50w Syringe 50 Ml*) 12.5 gm IV PUSH .FOR FS < 60 - SS PRN PRN Reason: FS < 60 Diltiazem HCl (Cardizem Cd Cap*) 360 mg PO DAILY [facility] Last Admin: 03/02/17 09:29 Dose: 360 mg Fluticasone Propionate (Flonase Nasal [place] 50mcg*) 2 spray BOTH NARES DAILY [facility] Last Admin: 03/02/17 09:29 Dose: 2 spray Vancomycin HCl 1,000 mg/ (Sodium Chloride) 250 mls @ 166.667 mls/hr IVPB Q12H [facility] Insulin Human Lispro (Humalog*) 0 units SUBCUT ACHS [facility] PRN Reason: Protocol Last Admin: 03/02/17 12:42 Dose: 6 units Insulin Human NPH (Insulin Nph(*)) 60 units SUBCUT 0700,1800 [facility] Last Admin: 03/02/17 09:30 Dose: 60 unit Levothyroxine Sodium (Synthroid Tab*) 200 mcg PO 0600 [facility] Last Admin: 03/02/17 05:55 Dose: 200 mcg Metolazone (Zaroxolyn Tab*) 5 mg PO DAILY [facility] Last Admin: 03/02/17 12:07 Dose: Not Given Metoprolol Tartrate (Lopressor Tab*) 25 mg PO BID [facility] Last Admin: 03/02/17 09:29 Dose: 25 mg Morphine Sulfate (Morphine Inj (Syringe)*) 2 mg IV Q2H PRN PRN Reason: PAIN Last Admin: 03/02/17 05:54 Dose: 2 mg Oxycodone HCl (Roxycodone Tab*) 10 mg PO Q4H PRN PRN Reason: PAIN Last Admin: 03/02/17 12:06 Dose: 10 mg Pharmacy Consult (Vancomycin Per Pharmacy*) 1 note FOLLOW UP . PRN PRN Reason: PER PROTOCOL Pharmacy Profile Note (Vancomycin Trough Check) 1 note FOLLOW UP .ENTER TIME ONE Stop: 03/04/17 13:31 Spironolactone (Aldactone Tab*) 50 mg PO DAILY [facility] Last Admin: 03/02/17 09:29 Dose: 50 mg Torsemide (Demadex*) 40 mg PO BID [facility] Last Admin: 03/02/17 09:28 Dose: 40 mg Warfarin Sodium (Coumadin Tab(*)) 15 mg PO DAILY@1700 [facility] PRN Reason: Protocol Last Admin: 03/01/17 16:48 Dose: 15 mg Vital Signs: Temp Pulse Resp BP Pulse Ox 98.1 F 85 16 133/65 98 03/02/17 11:08 03/02/17 11:08 03/02/17 12:06 03/02/17 11:08 03/02/17 11:08 Oxygen Devices in Use Now: Nasal Cannula Appearance: Middle aged obese male in NAD Respiratory: Symmetrical Chest Expansion and Respiratory Effort, Clear to Auscultation Cardiovascular: NL Sounds; No Murmurs; No JVD, RRR Abdominal: NL Sounds; No Tenderness; No Distention Extremities: - - 1+ LE edema, post op shoe in place Skin: - - hyperpigmentation of distal lower extremities, R foot with clean post- op dressing in place Neurological: Alert and Oriented x 3 Result Diagrams: 03/02/17 05:41 03/02/17 05:41 Additional Lab and Data: . Microbiology and Other Data: Microbiology 02/23/17 17:25 Blood Venous Aerobic Blood Culture - Preliminary No Growth Day 1 02/23/17 17:25 Blood Venous Anaerobic Blood Culture - Preliminary No Growth Day 1 02/23/17 17:06 Blood Venous Aerobic Blood Culture - Preliminary No Growth Day 1 02/23/17 17:06 Blood Venous Anaerobic Blood Culture - Preliminary No Growth Day 1 02/24/17 05:30 Nasal Nasal Screen MRSA (PCR)(JEAN CARLOS) - Final Mrsa Positive Assess/Plan/Problems-Billing 51 year old male PMH IDDM, morbid obesity(BMI 63), Afib (coumadin), chronic hypoxic respiratory failure(5L) p/w 2nd toe ulcer. On IV antibiotics. - Patient Problems (1) Diabetic foot ulcer Comment: POD #1 s/p R 2nd toe amputation Appreciate Ortho, ID and IR Continue vancomycin x 2 weeks per ID recommendations Stop cefepime Deep cultures collected intraoperatively, results are now reporting S aureus Patient had expressed concern over a PICC has he had a prior thrombosis associated with PICC, he is now anticoagulated chronically with Coumadin, reducing his risk of thrombosis, patient is agreeable to PICC after conversation (2) Acute on chronic diastolic (congestive) heart failure Comment: Resolved Continue torsemide 40mg po BID, 5mg metolazone daily, spironolactone 50mg daily. Daily Weights. (3) Chronic respiratory failure Comment: Stable Secondary to COPD and likely obesity hypoventilation syndrome 5L NS at baseline (4) Atrial fibrillation Comment: Rate controlled Anticoagulated with Coumadin which was held for surgery, but now restarted No bridge necessary Monitor daily INR (5) CKD (chronic kidney disease) stage 3, GFR 30-59 ml/min Comment: Stable. CR 1.5 (6) COPD (chronic obstructive pulmonary disease) Comment: Stable; On 5 L 02 at home. Not wheezing/SOB noted (7) Hypertension Comment: Improved with Norvasc. Continue diltiazem 360mg, torsemide 40mg po BID, 5 metolazone daily, spironolactone 50mg daily. (8) Morbid obesity Comment: BMI 62 (9) Insulin dependent diabetes mellitus Comment: Continue 60 units of NPH at this time with additional SS mealtime coverage, can like titrate back to home dosing now that he is postop Home insulin dose NPH 70/30 80units BID. (10) Gout Comment: Continue allopurinol 600mg daily. (11) DVT prophylaxis Comment: Coumadin restarted (12) Full code status Status and Disposition: Inpatient. CM helping to coordinate PICC placement and home infusion therapy.
[2017-03-02] MEDS ORDERED: Vancomycin(*) 1,000 MG in NS 0.9% 250 ML* 250 ML IVPB SCH (14:00)
[2017-03-02] MEDS: Warfarin TAB(*) 10 MG PO SCH (16:51)
[2017-03-02] MEDS: Vancomycin(*) 1,000 MG in NS 0.9% 250 ML* 250 ML IVPB SCH (20:21)
[2017-03-03] MEDS: oxyCODONE TAB* 5 MG TAB PO PRN ×4 (01:16→20:15)
[2017-03-03 05:10] LABS: Hematocrit 31 % (42-52); Hemoglobin 9.8 g/dl (14.0-18.0); Mean Corpuscular HGB Conc 31 g/dl (31-36); Mean Corpuscular Hemoglobin 27 pg (27-31); Mean Corpuscular Volume 86 fL (80-94); Mean Platelet Volume 7 um3 (7.4-10.4); Red Blood Count 3.62 10^6/ul (4.0-5.4); Red Cell Distribution Width 17 % (10.5-15); White Blood Count 14.7 10^3/ul (3.5-10.8)
[2017-03-03 05:12] LABS: Add Diff/Slide Review? Slide Review Added; Comments Flag Yes
[2017-03-03] MEDS: Levothyroxine TAB* 100 MCG TAB PO SCH (06:12)
[2017-03-03] MEDS: Albuterol 2.5 MG/3 ML NEB.SOL* (0.083%) INH PRN (06:45)
[2017-03-03] MEDS: Insulin NPH(*) 1 UNITS UNIT SUBCUT SCH ×2 (07:32→18:01)
[2017-03-03] MEDS: Vancomycin(*) 1,000 MG in NS 0.9% 250 ML* 250 ML IVPB SCH ×2 (07:33→20:15)
[2017-03-03] MEDS: Allopurinol TAB* 300 MG PO SCH (09:05)
[2017-03-03] MEDS: Spironolactone TAB* 25 MG PO SCH (09:05)
[2017-03-03] MEDS: Metoprolol Tartrate TAB* 25 MG PO SCH ×2 (09:06→20:15)
[2017-03-03] MEDS: Diltiazem CD CAP* 180 MG PO SCH (09:06)
[2017-03-03] MEDS: amLODIPine TAB* 5 MG PO SCH (09:06)
[2017-03-03] MEDS: Torsemide TAB* 20 MG PO SCH ×2 (09:06→17:01)
[2017-03-03] MEDS: Atorvastatin* 40 MG TAB PO SCH (09:06)
[2017-03-03] MEDS: Metolazone TAB* 5 MG PO SCH (09:06)
[2017-03-03] MEDS: Fluticasone NASAL SPRAY 50MCG* 16 gm SPRAY BTL BOTH NARES SCH (09:07)
[2017-03-03] MEDS: Collagenase 250 MG/GM OINT* 30 GM TOPICAL SCH (09:08)
[2017-03-03] MEDS: Insulin LISPRO* 1 UNITS UNIT SUBCUT SCH ×4 (09:22→20:15)
--- NOTE | 2017-03-03 09:32 | PN ---
Progress Note - Progress Note Date of Service: 03/03/17 SOAP: Subjective: POD #2 right 2nd toe disarticulation. Doing well. No pain. Denies CP/SOB or calf pain Objective: Vitals: Temp Pulse Resp BP Pulse Ox 98.2 F 80 20 151/68 98 03/03/17 08:08 03/03/17 08:08 03/03/17 09:07 03/03/17 08:08 03/03/17 08:08 Gen: A&Ox3, NAD at rest RLE: Incision C/I, mild s/s drainage. Moderate erythema and edema to forefoot. Sensation decreased due to neuropathy. 1+ DP pulse Assessment: POD #2 right 2nd toe disarticulation Plan: New dressing applied. Encouraged frequent elevation to decrease edema to foot and increase wound healing Heel WBAT with post op shoe Continue abx per ID
--- NOTE | 2017-03-03 16:19 | PN ---
Subjective Date of Service: 03/03/17 Interval History: Patient offers no new complaints at this time. No c/o SOB, CP, abd pain, n/v. Objective Active Medications: Albuterol (Ventolin 2.5 Mg/3 Ml Neb.Christy*) 2.5 mg INH Q4H PRN PRN Reason: SHORTNESS OF BREATH Last Admin: 03/03/17 06:45 Dose: 2.5 mg Allopurinol (Zyloprim Tab*) 600 mg PO DAILY [facility] Last Admin: 03/03/17 09:05 Dose: 600 mg Amlodipine Besylate (Norvasc Tab*) 5 mg PO DAILY [facility] Last Admin: 03/03/17 09:06 Dose: 5 mg Atorvastatin Calcium (Lipitor*) 40 mg PO DAILY [facility] Last Admin: 03/03/17 09:06 Dose: 40 mg Calcium Carbonate (Tums*) 500 mg PO Q4H PRN PRN Reason: INDIGESTION Last Admin: 03/01/17 17:26 Dose: 500 mg Collagenase (Santyl 250 Mg/Gm Oint*) 1 applic TOPICAL DAILY [facility] Last Admin: 03/03/17 09:08 Dose: Not Given Dextrose (D50w Syringe 50 Ml*) 12.5 gm IV PUSH .FOR FS < 60 - SS PRN PRN Reason: FS < 60 Diltiazem HCl (Cardizem Cd Cap*) 360 mg PO DAILY [facility] Last Admin: 03/03/17 09:06 Dose: 360 mg Fluticasone Propionate (Flonase Nasal [place] 50mcg*) 2 spray BOTH NARES DAILY [facility] Last Admin: 03/03/17 09:07 Dose: 2 spray Vancomycin HCl 1,000 mg/ (Sodium Chloride) 250 mls @ 166.667 mls/hr IVPB Q12H [facility] Last Admin: 03/03/17 07:33 Dose: 166.667 mls/hr Insulin Human Lispro (Humalog*) 0 units SUBCUT ACHS [facility] PRN Reason: Protocol Last Admin: 03/03/17 13:32 Dose: 6 units Insulin Human NPH (Insulin Nph(*)) 75 units SUBCUT 0700,1800 [facility] Levothyroxine Sodium (Synthroid Tab*) 200 mcg PO 0600 [facility] Last Admin: 03/03/17 06:12 Dose: 200 mcg Metolazone (Zaroxolyn Tab*) 5 mg PO DAILY [facility] Last Admin: 03/03/17 09:06 Dose: 5 mg Metoprolol Tartrate (Lopressor Tab*) 25 mg PO BID [facility] Last Admin: 03/03/17 09:06 Dose: 25 mg Morphine Sulfate (Morphine Inj (Syringe)*) 2 mg IV Q2H PRN PRN Reason: PAIN Last Admin: 03/02/17 05:54 Dose: 2 mg Oxycodone HCl (Roxycodone Tab*) 10 mg PO Q4H PRN PRN Reason: PAIN Last Admin: 03/03/17 15:32 Dose: 10 mg Pharmacy Consult (Vancomycin Per Pharmacy*) 1 note FOLLOW UP . PRN PRN Reason: PER PROTOCOL Pharmacy Profile Note (Vancomycin Trough Check) 1 note FOLLOW UP .ENTER TIME ONE Stop: 03/04/17 19:31 Spironolactone (Aldactone Tab*) 50 mg PO DAILY [facility] Last Admin: 03/03/17 09:05 Dose: 50 mg Torsemide (Demadex*) 40 mg PO 0600,1600 [facility] Warfarin Sodium (Coumadin Tab(*)) 15 mg PO DAILY@1700 [facility] PRN Reason: Protocol Last Admin: 03/02/17 16:51 Dose: 15 mg Vital Signs: Temp Pulse Resp BP Pulse Ox 97.8 F 66 18 152/52 98 03/03/17 15:37 03/03/17 15:37 03/03/17 15:37 03/03/17 15:37 03/03/17 16:00 Oxygen Devices in Use Now: Nasal Cannula Appearance: Well appearing, in NAD Respiratory: Symmetrical Chest Expansion and Respiratory Effort, Clear to Auscultation Cardiovascular: NL Sounds; No Murmurs; No JVD, RRR Abdominal: NL Sounds; No Tenderness; No Distention Extremities: - - 1-2+ LE edema Skin: - - hyperpigmentation of both lower extremities, R foot in a clean surgical dressing Neurological: Alert and Oriented x 3 Result Diagrams: 03/03/17 04:55 03/02/17 05:41 Additional Lab and Data: . Microbiology and Other Data: Microbiology 02/23/17 17:25 Blood Venous Aerobic Blood Culture - Preliminary No Growth Day 1 02/23/17 17:25 Blood Venous Anaerobic Blood Culture - Preliminary No Growth Day 1 02/23/17 17:06 Blood Venous Aerobic Blood Culture - Preliminary No Growth Day 1 02/23/17 17:06 Blood Venous Anaerobic Blood Culture - Preliminary No Growth Day 1 02/24/17 05:30 Nasal Nasal Screen MRSA (PCR)(JEAN CARLOS) - Final Mrsa Positive Assess/Plan/Problems-Billing 51 year old male PMH IDDM, morbid obesity(BMI 63), Afib (coumadin), chronic hypoxic respiratory failure(5L) p/w 2nd toe ulcer. On IV antibiotics. - Patient Problems (1) Diabetic foot ulcer Comment: POD #2 s/p R 2nd toe amputation Appreciate Ortho, ID and IR Continue vancomycin x 2 weeks per ID recommendations Stop cefepime Deep cultures collected intraoperatively grew MRSA (2) Acute on chronic diastolic (congestive) heart failure Comment: Resolved Continue torsemide 40mg po BID, 5mg metolazone daily, spironolactone 50mg daily. Daily Weights. (3) Chronic respiratory failure Comment: Stable Secondary to COPD and likely obesity hypoventilation syndrome 5L NS at baseline (4) Atrial fibrillation Comment: Rate controlled Anticoagulated with Coumadin which was held for surgery, but now restarted No bridge necessary Monitor daily INR (5) CKD (chronic kidney disease) stage 3, GFR 30-59 ml/min Comment: Stable. CR 1.5 (6) COPD (chronic obstructive pulmonary disease) Comment: Stable; On 5 L 02 at home. Not wheezing/SOB noted (7) Hypertension Comment: Improved with Norvasc. Continue diltiazem 360mg, torsemide 40mg po BID, 5 metolazone daily, spironolactone 50mg daily. (8) Morbid obesity Comment: BMI 62 (9) Insulin dependent diabetes mellitus Comment: Continue 60 units of NPH at this time with additional mealtime coverage, can like titrate back to home dosing now that he is postop Home insulin dose NPH 70/30 80units BID. (10) Gout Comment: Continue allopurinol 600mg daily. (11) DVT prophylaxis Comment: Coumadin restarted (12) Full code status Status and Disposition: Inpatient. CM helping to coordinate PICC placement and home infusion therapy. Anticipate dc Sunday
[2017-03-03] MEDS: Warfarin TAB(*) 10 MG PO SCH (17:01)
[2017-03-04] MEDS: oxyCODONE TAB* 5 MG TAB PO PRN ×2 (02:33→13:43)
[2017-03-04 06:01] LABS: Comments Flag Yes; Hematocrit 31 % (42-52); Hemoglobin 9.6 g/dl (14.0-18.0); Mean Corpuscular HGB Conc 31 g/dl (31-36); Mean Corpuscular Hemoglobin 27 pg (27-31); Mean Corpuscular Volume 85 fL (80-94); Mean Platelet Volume 7 um3 (7.4-10.4); Red Blood Count 3.59 10^6/ul (4.0-5.4); Red Cell Distribution Width 17 % (10.5-15); White Blood Count 13.6 10^3/ul (3.5-10.8)
[2017-03-04 06:02] LABS: Add Diff/Slide Review? Slide Review Added
[2017-03-04] MEDS: Torsemide TAB* 20 MG PO SCH ×2 (06:12→16:52)
[2017-03-04] MEDS: Levothyroxine TAB* 100 MCG TAB PO SCH (06:12)
[2017-03-04] MEDS: Insulin NPH(*) 1 UNITS UNIT SUBCUT SCH ×2 (06:13→17:59)
[2017-03-04 06:16] LABS: BUN/Creatinine Ratio 54.8 (8-20); Calcium 9.2 mg/dL (8.6-10.3); EGFR African American 55.5 (>60); EGFR Non-African American 43.1 (>60)
[2017-03-04 06:45] LABS: Eosinophils % 4 % (0-6); Hypochromasia 1+; Immature Granulocytes 2 % (0-9); Metamyelocytes % 1 % (0-2); Myelocytes % 1 % (0-1); Neutrophil % 81 % (38-83); Reactive Lymph % 1 % (0-6)
[2017-03-04] MEDS: Vancomycin(*) 1,000 MG in NS 0.9% 250 ML* 250 ML IVPB SCH ×2 (08:02→20:26)
[2017-03-04] MEDS: Collagenase 250 MG/GM OINT* 30 GM TOPICAL SCH (08:48)
[2017-03-04] MEDS: Atorvastatin* 40 MG TAB PO SCH (08:50)
[2017-03-04] MEDS: Diltiazem CD CAP* 180 MG PO SCH (08:50)
[2017-03-04] MEDS: Allopurinol TAB* 300 MG PO SCH (08:50)
[2017-03-04] MEDS: amLODIPine TAB* 5 MG PO SCH (08:50)
[2017-03-04] MEDS: Spironolactone TAB* 25 MG PO SCH (08:50)
[2017-03-04] MEDS: Metoprolol Tartrate TAB* 25 MG PO SCH ×2 (08:50→20:25)
[2017-03-04] MEDS: Fluticasone NASAL SPRAY 50MCG* 16 gm SPRAY BTL BOTH NARES SCH (08:50)
[2017-03-04] MEDS: Insulin LISPRO* 1 UNITS UNIT SUBCUT SCH ×4 (08:50→20:25)
--- NOTE | 2017-03-04 10:02 | PN ---
Progress Note - Progress Note Date of Service: 03/04/17 SOAP: Subjective:no pain. no complaints [] Objective: Temp Pulse Resp BP Pulse Ox 98.3 F 71 20 137/75 97 03/04/17 07:49 03/04/17 07:49 03/04/17 07:49 03/04/17 07:49 03/04/17 07:49 skin intact dec sensation per baseline [] Assessment:POD2 right 2nd linnea amp, doing well [] Plan: heel WB, reinforced importance of this as he has not been very compliantwith this thus far abx per ID daily DSD []
--- NOTE | 2017-03-04 13:47 | PN ---
Subjective Date of Service: 03/04/17 Interval History: Patient offers no new complaints. Looking forward to [place] home tomorrow, pending PICC placement. Denies CP, SOB, abd pain, n/v. Objective Active Medications: Albuterol (Ventolin 2.5 Mg/3 Ml Neb.Christy*) 2.5 mg INH Q4H PRN PRN Reason: SHORTNESS OF BREATH Last Admin: 03/03/17 06:45 Dose: 2.5 mg Allopurinol (Zyloprim Tab*) 600 mg PO DAILY [facility] Last Admin: 03/04/17 08:50 Dose: 600 mg Amlodipine Besylate (Norvasc Tab*) 5 mg PO DAILY [facility] Last Admin: 03/04/17 08:50 Dose: 5 mg Atorvastatin Calcium (Lipitor*) 40 mg PO DAILY [facility] Last Admin: 03/04/17 08:50 Dose: 40 mg Calcium Carbonate (Tums*) 500 mg PO Q4H PRN PRN Reason: INDIGESTION Last Admin: 03/01/17 17:26 Dose: 500 mg Collagenase (Santyl 250 Mg/Gm Oint*) 1 applic TOPICAL DAILY [facility] Last Admin: 03/04/17 08:48 Dose: Not Given Dextrose (D50w Syringe 50 Ml*) 12.5 gm IV PUSH .FOR FS < 60 - SS PRN PRN Reason: FS < 60 Diltiazem HCl (Cardizem Cd Cap*) 360 mg PO DAILY [facility] Last Admin: 03/04/17 08:50 Dose: 360 mg Docusate Sodium (Colace Cap*) 100 mg PO BID [facility] Fluticasone Propionate (Flonase Nasal [place] 50mcg*) 2 spray BOTH NARES DAILY [facility] Last Admin: 03/04/17 08:50 Dose: 2 spray Vancomycin HCl 1,000 mg/ (Sodium Chloride) 250 mls @ 166.667 mls/hr IVPB Q12H [facility] Last Admin: 03/04/17 08:02 Dose: 166.667 mls/hr Insulin Human Lispro (Humalog*) 0 units SUBCUT ACHS [facility] PRN Reason: Protocol Last Admin: 03/04/17 08:50 Dose: 3 units Insulin Human NPH (Insulin Nph(*)) 75 units SUBCUT 0700,1800 [facility] Last Admin: 03/04/17 06:13 Dose: 75 unit Levothyroxine Sodium (Synthroid Tab*) 200 mcg PO 0600 [facility] Last Admin: 03/04/17 06:12 Dose: 200 mcg Metolazone (Zaroxolyn Tab*) 5 mg PO DAILY [facility] Metoprolol Tartrate (Lopressor Tab*) 25 mg PO BID [facility] Last Admin: 03/04/17 08:50 Dose: 25 mg Morphine Sulfate (Morphine Inj (Syringe)*) 2 mg IV Q2H PRN PRN Reason: PAIN Last Admin: 03/02/17 05:54 Dose: 2 mg Oxycodone HCl (Roxycodone Tab*) 10 mg PO Q4H PRN PRN Reason: PAIN Last Admin: 03/04/17 02:33 Dose: 10 mg Pharmacy Consult (Vancomycin Per Pharmacy*) 1 note FOLLOW UP . PRN PRN Reason: PER PROTOCOL Pharmacy Profile Note (Vancomycin Trough Check) 1 note FOLLOW UP .ENTER TIME ONE Stop: 03/04/17 19:31 Spironolactone (Aldactone Tab*) 50 mg PO DAILY [facility] Last Admin: 03/04/17 08:50 Dose: 50 mg Torsemide (Demadex*) 40 mg PO 0600,1600 [facility] Last Admin: 03/04/17 06:12 Dose: 40 mg Warfarin Sodium (Coumadin Tab(*)) 15 mg PO DAILY@1700 [facility] PRN Reason: Protocol Last Admin: 03/03/17 17:01 Dose: 15 mg Vital Signs: Temp Pulse Resp BP Pulse Ox 98.3 F 71 18 137/75 97 03/04/17 07:49 03/04/17 07:49 03/04/17 13:43 03/04/17 07:49 03/04/17 08:00 Oxygen Devices in Use Now: Nasal Cannula Appearance: Well appearing middle aged obese male in NAD Respiratory: Symmetrical Chest Expansion and Respiratory Effort, Clear to Auscultation Cardiovascular: NL Sounds; No Murmurs; No JVD, RRR Abdominal: NL Sounds; No Tenderness; No Distention Extremities: - - 1-2+ non-pitting edema Skin: - - R foot in a clean surgical dressing with post op shoe in place Neurological: Alert and Oriented x 3 Result Diagrams: 03/04/17 05:49 03/04/17 05:49 Additional Lab and Data: . Microbiology and Other Data: Microbiology 02/23/17 17:25 Blood Venous Aerobic Blood Culture - Preliminary No Growth Day 1 02/23/17 17:25 Blood Venous Anaerobic Blood Culture - Preliminary No Growth Day 1 02/23/17 17:06 Blood Venous Aerobic Blood Culture - Preliminary No Growth Day 1 02/23/17 17:06 Blood Venous Anaerobic Blood Culture - Preliminary No Growth Day 1 02/24/17 05:30 Nasal Nasal Screen MRSA (PCR)(JEAN CARLOS) - Final [facility]sa Positive Assess/Plan/Problems-Billing 51 year old male PMH IDDM, morbid obesity(BMI 63), Afib (coumadin), chronic hypoxic respiratory failure(5L) p/w 2nd toe ulcer. On IV antibiotics. - Patient Problems (1) Diabetic foot ulcer Comment: POD #3 s/p R 2nd toe amputation Appreciate Ortho, ID and IR Continue vancomycin x 2 weeks per ID recommendations Deep cultures collected intraoperatively grew MRSA (2) Acute on chronic diastolic (congestive) heart failure Comment: Resolved Looked a little dry today, metolazone held Continue torsemide 40mg po BID, spironolactone 50mg daily. Daily Weights. (3) Chronic respiratory failure Comment: Stable Secondary to COPD and likely obesity hypoventilation syndrome 5L NS at baseline (4) Atrial fibrillation Comment: Rate controlled Anticoagulated with Coumadin which was held for surgery, but now restarted No bridge necessary Monitor daily INR (5) CKD (chronic kidney disease) stage 3, GFR 30-59 ml/min Comment: Stable. CR ~1.5 (6) COPD (chronic obstructive pulmonary disease) Comment: Stable; On 5 L 02 at home. Not wheezing/SOB noted (7) Hypertension Comment: Improved with Norvasc. Continue diltiazem 360mg, torsemide 40mg po BID, 5 metolazone daily, spironolactone 50mg daily. (8) Morbid obesity Comment: BMI 62 (9) Insulin dependent diabetes mellitus Comment: Titrating NPH back to home dosing, increase to 80 bid today Home insulin dose NPH 70/30 100units BID. (10) Gout Comment: Continue allopurinol 600mg daily. (11) DVT prophylaxis Comment: Coumadin restarted (12) Full code status Status and Disposition: Inpatient. CM helping to coordinate PICC placement and home infusion therapy. Anticipate dc Sunday
[2017-03-04] MEDS: Albuterol 2.5 MG/3 ML NEB.SOL* (0.083%) INH PRN (14:58)
[2017-03-04] MEDS: Warfarin TAB(*) 10 MG PO SCH (16:52)
--- NOTE | 2017-03-04 18:01 | RAD ---
HISTORY: PICC line placement COMPARISONS: February 23, 2017 VIEWS: 1: frontal portable view of the chest at 5:25 PM. The right costophrenic angle is cut off FINDINGS: LINES AND TUBES: A left-sided PICC line is noted with the tip at the confluence of the superior vena cava. CARDIOMEDIASTINAL SILHOUETTE: The cardiomediastinal silhouette is normal for portable technique. PLEURA: The costophrenic angles are sharp. No pleural abnormalities are noted. LUNG PARENCHYMA: There is prominence of the central pulmonary vasculature. ABDOMEN: The upper abdomen is clear. There is no subphrenic gas. BONES AND SOFT TISSUES: No bone or soft tissue abnormalities are noted. IMPRESSION: 1. LINES AND TUBES ABOVE. 2. PULMONARY VASCULAR CONGESTION.
[2017-03-04] MEDS ORDERED: Vancomycin Trough Check NOTE FOLLOW UP ONE (19:30)
[2017-03-04] MEDS: Docusate CAP* 100 MG PO SCH (20:25)
[2017-03-05] MEDS: Albuterol 2.5 MG/3 ML NEB.SOL* (0.083%) INH PRN ×2 (00:46→14:19)
[2017-03-05] MEDS: oxyCODONE TAB* 5 MG TAB PO PRN ×3 (00:47→16:06)
[2017-03-05] MEDS: Levothyroxine TAB* 100 MCG TAB PO SCH (06:03)
[2017-03-05] MEDS: Torsemide TAB* 20 MG PO SCH ×2 (06:03→16:24)
[2017-03-05] MEDS: Insulin NPH(*) 1 UNITS UNIT SUBCUT SCH (06:04)
[2017-03-05 06:44] LABS: BUN/Creatinine Ratio 50.6 (8-20); EGFR African American 51.2 (>60); EGFR Non-African American 39.8 (>60); Potassium 3.8 mmol/L (3.5-5.0)
[2017-03-05] MEDS: Vancomycin(*) 1,000 MG in NS 0.9% 250 ML* 250 ML IVPB SCH (07:34)
[2017-03-05] MEDS ORDERED: Metolazone TAB* 5 MG PO SCH (09:00)
[2017-03-05] MEDS: Atorvastatin* 40 MG TAB PO SCH (09:05)
[2017-03-05] MEDS: Metoprolol Tartrate TAB* 25 MG PO SCH (09:05)
[2017-03-05] MEDS: amLODIPine TAB* 5 MG PO SCH (09:05)
[2017-03-05] MEDS: Allopurinol TAB* 300 MG PO SCH (09:05)
[2017-03-05] MEDS: Spironolactone TAB* 25 MG PO SCH (09:05)
[2017-03-05] MEDS: Docusate CAP* 100 MG PO SCH (09:05)
[2017-03-05] MEDS: Diltiazem CD CAP* 180 MG PO SCH (09:05)
[2017-03-05] MEDS: Insulin LISPRO* 1 UNITS UNIT SUBCUT SCH ×2 (09:06→13:08)
[2017-03-05] MEDS: Fluticasone NASAL SPRAY 50MCG* 16 gm SPRAY BTL BOTH NARES SCH (09:06)
[2017-03-05] MEDS: Collagenase 250 MG/GM OINT* 30 GM TOPICAL SCH (09:06)
--- NOTE | 2017-03-05 15:09 | DS ---
CC: Dr. Plasencia; Dr. Mckee; Dr. Fierro * DATE OF ADMISSION: 02/23/2017. DATE OF DISCHARGE: 03/05/2017. PRIMARY CARE PHYSICIAN: Dr. Plasencia. ORTHOPEDIC SURGEON: Dr. Mckee. INFECTIOUS DISEASE PHYSICIAN: Dr. Mann Fierro. DISCHARGING PROVIDER: RAI Epstein. SUPERVISING PHYSICIAN: Dr. Amanda Crisostomo *(dictated by RAI Epstein). PRIMARY DISCHARGE DIAGNOSES: 1. Acute osteomyelitis of the right second toe with wound cultures growing MRSA and corynebacterium. 2. Acute on chronic diastolic heart failure - resolved. 3. Chronic respiratory failure secondary COPD. 4. Obstructive sleep apnea with suspected obesity hypoventilation syndrome. SECONDARY DISCHARGE DIAGNOSES: 1. Atrial fibrillation which is rate controlled and chronic anticoagulated with Coumadin. 2. Stage 3 chronic kidney disease with relatively stable creatinine near 1.5, 1.8 at discharge. 3. COPD without acute exacerbation. 4. Hypertension. 5. Morbid obesity with a BMI of 62. 6. Insulin dependent diabetes. 7. History of gout. DISCHARGE MEDICATIONS: 1. Nebulized Albuterol 2.5 mg inhaled q.4 hours as needed for shortness of breath. 2. Pro-Air two puffs inhaled q.4 hours as needed for shortness of breath. 3. Allopurinol 600 mg p.o. daily. 4. Atorvastatin 40 mg p.o. daily. 5. Symbicort 160/4.5 two puffs inhaled twice daily. 6. Diltiazem 360 mg p.o. daily. 7. Fluticasone two sprays in both nostrils once daily. 8. Humulin 70/30 insulin 100 units subcu twice daily. 9. Humalog on a sliding scale at mealtime. 10. Ketoconazole 2% cream applied topically twice daily. 11. Levothyroxine 200 mcg p.o. daily. 12. Metolazone 5 mg p.o. daily. 13. Metoprolol Tartrate 25 mg p.o. twice daily. 14. Spironolactone 50 mg p.o. daily. 15. Torsemide 40 mg p.o. twice daily. 16. Vancomycin 750 mg IV twice daily through 03/15/2017 for osteomyelitis. 17. Coumadin 15 mg p.o. daily. 18. Oxycodone 10 mg p.o. q.4 hours as needed for pain. Medication changes: 1. Vancomycin through 03/15/2017. HOSPITAL IMAGIN. Chest x-ray, 02/23/2017, demonstrates cardiomegaly with likely interstitial edema and vascular congestion. 2. X-ray of the foot shows soft tissue swelling of the right second toe, underlying bony cortices are intact, there is bony destruction and irregularity of the proximal pole of the right third metatarsal. 3. Ankle brachial indices: The ankle brachial indices could not be calculated due to noncompressible vessels. 4. MRI of the right lower extremity of the right foot shows extensive soft tissue edema without evidence for loculated abscess. The morphologic and signal changes at the tarsometatarsal articulations is most suggestive of advanced Charcot arthropathy; however, osteomyelitis is not excluded given the marrow signal changes. 5. Duplex arterial scan shows elevated velocities in the right superficial femoral artery mid and distal portion with spectrum broadening. Stenosis cannot be excluded. 6. Chest x-ray, 03/04/2017, shows a left-sided PICC in place with the tip at the IVC with some pulmonary vascular congestion. 7. Pathology is pending of the right second toe. HOSPITAL COURSE: This is a 51-year-old gentleman who is morbidly obese with insulin dependent diabetes, diabetic neuropathy, diastolic heart failure and chronic respiratory failure on 5 liters of supplemental O2 at baseline, as well as chronic atrial fibrillation for which he is anticoagulated with Coumadin who presented with concerns for infection in his right second toe. The patient has little to no feeling in his lower extremities and believes that he bumped his toe approximately one week prior to his acute hospitalization. He noted some color changes to skin and some bleeding in the toe. When he reached the emergency department, he had an initial white blood cell count of 19,000. Metabolic panel showed some mild hyponatremia as renal function was near baseline with stage three dysfunction. Lactic acid was normal. Troponin was mildly elevated at 0.05 which appeared to be consistent with prior measurements and a CRP of 186. Initial imaging of the foot showed soft tissue edema, but no bony destruction suggestive of osteomyelitis. The patient was empirically treated with Vanco and Zosyn, and a wound culture was collected which essentially grew MRSA and corynebacterium for which he was continued on Vancomycin and Cefepime. There was some concern about his vascular status and ability to heal the infection in the right second toe with clinical evidence for acute osteomyelitis. The patient was above the weight limit for adequate imaging of the lower extremity vasculature and transfer was considered for further vascular evaluation. The patient, however, elected for amputation of his right second toe rather than transfer to help determine his ability to heal his acute infection. He underwent amputation of his right second toe with Dr. Mckee on 03/01/2017. Deep cultures were taken at the time of the amputation which eventually grew MRSA and the patient was continued on Vancomycin with recommendations from Infectious Disease to continue his Vancomycin for a total of two weeks postoperatively, which will take us through March 15. DISPOSITION AND FOLLOW-UP PLAN: The patient is being discharged to home with IV Vancomycin at doses described above through 03/15/2017. The patient requires Vancomycin trough, CBC, basic metabolic panel and an INR on March 07. Of note, his Coumadin was interrupted for surgery and resumed on postop day 0. His INR is 1.8 at the time of discharge. The patient requires daily dressing changes with sterile dry gauze and wrapped in an Brandon wrap. He needs follow-up with Dr. Mckee for later this week for a wound check, which the patient will call his office for. Recommend close follow-up with primary care, can help to coordinate Vancomycin dosing along with office Dr. Mann Fierro. RAI EPSTEIN [id number]/[facility] #: [id number] VIGNESH
[2017-03-05 15:41] VITALS: BP 134/54
[2017-03-05] MEDS: Warfarin TAB(*) 10 MG PO SCH (16:05)
[2017-03-06] MEDS ORDERED: Vancomycin(*) 750 MG in NS 0.9% 250 ML* 250 ML IVPB SCH (21:00)
[2017-03-07] MEDS ORDERED: Vancomycin Trough Check NOTE FOLLOW UP ONE (08:30)
== END 2017-03-05 16:35 | disposition home health service (06) | DRG 314 ==
LOC: ED 15:32 → MEDTELE 18:01 → SSU 03-01 12:19
PROVIDERS: ADMIT Internal Medicine; ATTEND Internal Medicine
PROC: 0Y6R0Z0 Detachment at Right 2nd Toe, Complete, Open Approach (ICD-10-PCS; principal; 2017-03-01 10:00)
PROC: 02HV33Z Insertion of Infusion Device into Superior Vena Cava, Percutaneous Approach (ICD-10-PCS; 2017-03-04)
DX: E11.621 Type 2 diabetes mellitus with foot ulcer (principal); I50.33 Acute on chronic diastolic (congestive) heart failure; J96.11 Chronic respiratory failure with hypoxia; M86.171 Other acute osteomyelitis, right ankle and foot; E11.22 Type 2 diabetes mellitus with diabetic chronic kidney disease; I42.9 Cardiomyopathy, unspecified; I13.0 Hypertensive heart and chronic kidney disease with heart failure and stage 1 through stage 4 chronic kidney disease, or unspecified chronic kidney disease; E66.2 Morbid (severe) obesity with alveolar hypoventilation; Z68.44 Body mass index [BMI] 60.0-69.9, adult; E87.1 Hypo-osmolality and hyponatremia; M86.671 Other chronic osteomyelitis, right ankle and foot; E11.69 Type 2 diabetes mellitus with other specified complication; L97.519 Non-pressure chronic ulcer of other part of right foot with unspecified severity; N18.3 Chronic kidney disease, stage 3 (moderate); E11.51 Type 2 diabetes mellitus with diabetic peripheral angiopathy without gangrene; I48.2 Chronic atrial fibrillation; E03.9 Hypothyroidism, unspecified; E78.5 Hyperlipidemia, unspecified; E11.42 Type 2 diabetes mellitus with diabetic polyneuropathy; J44.9 Chronic obstructive pulmonary disease, unspecified; L03.032 Cellulitis of left toe; B95.62 Methicillin resistant Staphylococcus aureus infection as the cause of diseases classified elsewhere; B96.89 Other specified bacterial agents as the cause of diseases classified elsewhere; M60.9 Myositis, unspecified; M10.9 Gout, unspecified; M19.90 Unspecified osteoarthritis, unspecified site; Z83.3 Family history of diabetes mellitus; Z82.49 Family history of ischemic heart disease and other diseases of the circulatory system; Z79.4 Long term (current) use of insulin; Z86.718 Personal history of other venous thrombosis and embolism; Z99.81 Dependence on supplemental oxygen; Z87.891 Personal history of nicotine dependence; Z88.8 Allergy status to other drugs, medicaments and biological substances; Z79.01 Long term (current) use of anticoagulants; Z86.711 Personal history of pulmonary embolism; Z82.3 Family history of stroke
CPT/HCPCS: 36415; 71010; 80048; 80053; 80202; 81003; 81015; 83605; 83735; 84484; 85025; 85610; 85652; 85730; 86140; 86850; 86900; 86901; 87040; 87070; 87073; 87077; 87186; 87205; 87640; 87641; 88305; 88311; 93005; 93922; 94640; 94760; A9270-GY; C1751; J0692; J2250; J2270; J2543; J3010; J3370; J3475

== ENCOUNTER 2017-04-15 06:11 | Inpatient (IN) | payer BC ==
[2017-04-15] MEDS ORDERED: Piperacillin/Tazobac ADVAN(*) 3.375 GM in NS 0.9% 100 ML* 100 ML IVPB ONE (07:35)
[2017-04-15 07:57] LABS: Hematocrit 34 % (42-52); Hemoglobin 11.1 g/dl (14.0-18.0); Mean Corpuscular HGB Conc 33 g/dl (31-36); Mean Corpuscular Hemoglobin 27 pg (27-31); Mean Corpuscular Volume 84 fL (80-94); Mean Platelet Volume 7 um3 (7.4-10.4); Red Blood Count 4.05 10^6/ul (4.0-5.4); Red Cell Distribution Width 18 % (10.5-15); White Blood Count 23.6 10^3/ul (3.5-10.8)
[2017-04-15 08:02] LABS: Add Diff/Slide Review? Slide Review Added; Comments Flag Yes
[2017-04-15] MEDS ORDERED: Ondansetron INJ* 2 MG/ML VIAL IV ONE (08:05)
[2017-04-15] MEDS ORDERED: Morphine INJ* 4 MG/ML 1 ML CARPUJECT IV ONE (08:05)
[2017-04-15 08:12] LABS: Albumin 3.6 g/dL (3.2-5.2); C Reactive Protein 120.93 mg/L (< 5.00); Calcium 10.3 mg/dL (8.6-10.3); EGFR African American 55.5 (>60); EGFR Non-African American 43.1 (>60); Globulin 4.3 g/dL (2-4); Potassium 4.1 mmol/L (3.5-5.0); Total Bilirubin 0.7 mg/dL (0.2-1.0); Total Protein 7.9 g/dL (6.4-8.9); Uric Acid 6.1 mg/dL (4.4-7.6)
--- NOTE | 2017-04-15 08:26 | RAD ---
Indication: LEFT foot and ankle pain for several weeks. Chronic obstructive pulmonary disease. Comparison: No relevant prior exams available on the [facility] PACS for comparison. Technique: AP, lateral, and oblique views LEFT foot. AP, lateral, and mortise views LEFT ankle. Report: Congruent ankle mortise. Loss of the longitudinal arch of the foot with partial collapse of the tarsal bones and advanced arthropathy at the intertarsal and tarsometatarsal joints with suggestion of fragmentation and advanced subchondral sclerosis and cystic change. Periosteal thickening along the diaphyses of the fourth and fifth metatarsals from the base through the distal diaphyses. No acute fracture evident. Severe soft tissue swelling about the ankle and foot. Peripheral vascular calcifications. No conspicuous foreign body or subcutaneous emphysema. IMPRESSION: The constellation of findings may represent advanced neuropathic arthropathy or sequela of chronic osteomyelitis. Correlate with clinical assessment.
--- NOTE | 2017-04-15 08:27 | RAD ---
Indication: LEFT foot and ankle pain for several weeks. Chronic obstructive pulmonary disease. Comparison: No relevant prior exams available on the [facility] [place] for comparison. Technique: AP, lateral, and oblique views LEFT foot. AP, lateral, and mortise views LEFT ankle. Report: Congruent ankle mortise. Loss of the longitudinal arch of the foot with partial collapse of the tarsal bones and advanced arthropathy at the intertarsal and tarsometatarsal joints with suggestion of fragmentation and advanced subchondral sclerosis and cystic change. Periosteal thickening along the diaphyses of the fourth and fifth metatarsals from the base through the distal diaphyses. No acute fracture evident. Severe soft tissue swelling about the ankle and foot. Peripheral vascular calcifications. No conspicuous foreign body or subcutaneous emphysema. IMPRESSION: The constellation of findings may represent advanced neuropathic arthropathy or sequela of chronic osteomyelitis. Correlate with clinical assessment.
[2017-04-15 08:56] LABS: Urine Bacteria Absent (Absent); Urine Bilirubin Negative (Negative); Urine Glucose Negative (Negative); Urine Nitrite Negative (Negative)
[2017-04-15 09:16] LABS: Erythrocyte Sed Rate 108 mm/Hr (0-20)
[2017-04-15] MEDS ORDERED: Dextrose 50% Syringe 50 ML* 25 GM/50 ML SYRINGE IV PUSH PRN (09:35)
[2017-04-15] MEDS ORDERED: Al Hydrox/Mg Hydrox/Simet LIQ* 30 ML UDC PO PRN (10:12)
[2017-04-15] MEDS ORDERED: Albuterol HFA INHALER* 8 gm MDI INH PRN (10:13)
[2017-04-15] MEDS ORDERED: Fluticasone NASAL SPRAY 50MCG* 16 gm SPRAY BTL BOTH NARES PRN (10:13)
[2017-04-15] MEDS: Insulin LISPRO* 1 UNITS UNIT SUBCUT SCH ×3 (11:10→22:15)
[2017-04-15] MEDS ORDERED: Vancomycin per Pharmacy* NOTE FOLLOW UP PRN (11:28)
[2017-04-15] MEDS: Cefepime 2 GM in Dextrose(*) 2 GM/50 ML BAG IV SCH ×2 (11:28→22:15)
[2017-04-15] MEDS: Morphine INJ* 2 MG/ML 1 ML SYRINGE (TWO MG - NEW SYRINGE VERSION) IV PRN (11:28)
[2017-04-15] MEDS ORDERED: Vancomycin(*) 2,000 MG in NS 0.9% 250 ML* 250 ML IVPB ONE (11:30)
[2017-04-15] MEDS ORDERED: Vancomycin(*) 2,000 MG in NS 0.9% 500 ML* 500 ML IVPB ONE (11:30)
[2017-04-15] MEDS: oxyCODONE TAB* 5 MG TAB PO PRN ×3 (14:30→23:46)
[2017-04-15] MEDS: Acetaminophen TAB* 325 MG PO PRN ×2 (14:30→18:57)
[2017-04-15] MEDS: Albuterol 2.5 MG/3 ML NEB.SOL* (0.083%) INH PRN ×2 (15:02→20:24)
--- NOTE | 2017-04-15 15:46 | HP ---
CC: Dr. Plasencia * HISTORY AND PHYSICAL: DATE OF ADMISSION: 04/15/17 PRIMARY CARE PROVIDER: Dr. Plasencia. CHIEF COMPLAINT: Left leg pain. HISTORY OF PRESENT ILLNESS: Bautista Anderson is a 51-year-old male with history of morbid obesity, who presented to [facility] complaining of left leg pain for several days. He states that the most painful is his left heel. He had been on oxycodone at home, but he "ran out of the medications." He denies any fevers or chills. When he presented to the ED, he was noted to have marked leukocytosis with cellulitis of the left lower extremity. He is going to be admitted with a diagnosis of cellulitis of the left leg. PAST MEDICAL HISTORY: 1. History of morbid obesity with BMI over 60. 2. Obstructive sleep apnea, on CPAP. 3. Diabetes type 2, insulin dependent. 4. Chronic hypoxemic respiratory failure with suspected obesity hypoventilation syndrome, on oxygen at 5 L continuously. 5. History of DVT in the right upper extremity and PE. 6. Dyslipidemia. 7. Chronic kidney disease stage 3 due to diabetes. 8. Hypertension. 9. Peripheral vascular disease. 10. Hypothyroidism. 11. Arthritis. 12. History of gout. 13. Status post right second toe amputation due to osteomyelitis in February 2017. MEDICATIONS: Include: 1. Flonase nasal spray 50 mcg 2 sprays both nostrils p.r.n. 2. Albuterol nebulizers on a p.r.n. basis every 4 hours. 3. Insulin lispro sliding scale, usually the patient takes 10 units with each meal. 4. Insulin Humulin 70/30. The patient takes 100 units b.i.d. 5. Albuterol sulfate 2 puffs inhalation p.r.n. 6. Levothyroxine 200 mcg daily. 7. Zaroxolyn 5 mg daily. 8. Vitamin B12 of 1000 mcg daily. 9. Multivitamin 1 tablet daily. 10. Aldactone 50 mg daily. 11. Allopurinol 300 mg b.i.d. 12. Oxycodone 10 mg every 4 hours p.r.n. 13. Metoprolol tartrate 25 mg b.i.d. 14. Cardizem CD 360 mg daily. 15. Symbicort 160/4.5 two puffs inhalation b.i.d. 16. Demadex 40 mg b.i.d. 17. Coumadin 7.5 mg daily. 18. Lipitor 40 mg daily. In addition to the above mentioned, the patient uses CPAP nightly and oxygen at 5 L continuously. ALLERGIES: TIGECYCLINE causes skin rash. FAMILY HISTORY: Positive for father with heart disease and diabetes and maternal grandmother with diabetes. SOCIAL HISTORY: The patient quit smoking approximately 15 years ago. He denies any alcohol or drug use. He is on disability. He stated that he rarely walks. Most of his time he spends in his recliner. He is and his is his healthcare proxy. 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 REVIEW OF SYSTEMS: Please see history of present illness. In addition to the above mentioned, the patient stated that several days ago he had a day when he urinated "a lot of urine." He denies any abdominal pain. He denies any fevers. His dyspnea is chronic and unchanged. He denies any cough. All the remaining 12 systems were reviewed with the patient and were otherwise negative. PHYSICAL EXAMINATION GENERAL: This is a very pleasant 51-year-old male with BMI over 60. The patient is in no acute distress. Alert, awake, and oriented x3. VITAL SIGNS: Blood pressure of 146/69, heart rate of 94 and regular, respiratory rate 20, oxygen saturation 97% on 5 L of oxygen nasal cannula, temperature 99.0. HEENT: Head is atraumatic, normocephalic. Eyes: Pupils equal and reactive to light and accommodation. Oropharynx clear. Mucosa moist. NECK: Supple. No JVD. No bruits bilaterally. RESPIRATORY: Clear to auscultation bilaterally. CARDIOVASCULAR: Regular rate and rhythm. No murmur. ABDOMEN: Very protuberant, soft, nontender. Bowel sounds present in all 4 quadrants. Large pannus noted as well as non-retractable umbilical hernia of approximately 30 cm in diameter, nontender to palpation. EXTREMITIES: The patient has bilateral ankle edema, left more than right. Left calf is also edematous. Please note that the ankle edema on the right is just trace. On the left leg, the patient's entire foot and calf is edematous with cellulitis noted of the entire foot. Tender to palpation throughout, but no loculated collection is noted. On evaluation of the right foot, the patient is status post right second toe amputation with wound covered with eschar. No evidence of wound dehiscence. No evidence of wound infection there. NEUROLOGIC: Speech clear. Cranial nerves II through XII grossly intact. Motor strength is 5/5 bilaterally. PSYCHIATRIC EVALUATION: Oriented x3 with no evidence of anxiety or depression. DIAGNOSTIC STUDIES/LAB DATA: White blood cell count of 23.6, hemoglobin 11.1, hematocrit 34, and platelets 461. The patient's INR was 3.6. Sodium is 127, potassium 4.1, chloride 90, carbon dioxide 30, BUN 94, creatinine 1.68 which is approximately at the patient's baseline. Glucose 162. Liver function test showed AST of 48, ALT of 101, alkaline phosphatase of 197. C-reactive protein was 120. Bilirubin was within normal limits at 0.7. Lactic acid 0.5. Urinalysis was grossly unremarkable. Foot x-ray; impression: "The constellation of findings may represent advanced neuropathic arthropathy or a sequela of chronic osteomyelitis. Correlate with clinical assessment." Ankle x-ray on the left, the impression was noted the same as above. The patient's EKG shows sinus ectopic atrial rhythm with a heart rate of 84 beats per minute with no significant ST changes. ASSESSMENT AND PLAN: 1. The patient is septic due to left leg osteomyelitis. An MRI of the foot is going to be obtained tomorrow to rule out possibility of osteomyelitis since the pain is very severe. I will check Doppler's of the left calf to rule out DVT, although doubt since the patient is anticoagulated on Coumadin and INR is therapeutic. 2. During his hospitalization in February 2017 when the patient had amputation of his right second toe, his blood cultures grew methicillin-resistant Staphylococcus aureus and Corynebacterium. I will place him on the same antibiotics as previously, which is going to be cefepime and vancomycin and await blood culture results. 3. In regards to the patient's elevation of liver function tests, I suspect that this was sepsis. We will institute gentle intravenous hydration and recheck the patient's liver function tests tomorrow. 4. The patient has a history of chronic hypoxemic respiratory failure and he is oxygen dependent at 5 L of oxygen via nasal cannula which is at his baseline today and this supportive treatment is going to be continued. 5. For obstructive sleep apnea, CPAP is going to be continued from home. 6. The patient has chronic kidney disease stage 3 due to diabetes is at his baseline. The patient has had a fair amount of diuretics, which will be continued. 7. In regards of intravenous fluids treatment in this septic patient, the patient appears to be hemodynamically stable and he is on large amount of diuretics. He does not have a diagnosis of congestive heart failure in the past. Due to that, I will place him on gentle intravenous hydration with normal saline at 75 mL an hour and his diuretics for the time being will be continued. 8. The patient has a history of atrial fibrillation. Currently, he is in ectopic atrial rhythm. His Coumadin is therapeutic and is going to be continued. 9. His hyponatremia is likely related to possibly mild dehydration, although the patient has history of chronic hyponatremia. At this point, we are going to continue to monitor it after the normal saline resuscitation. 10. His hypothyroidism is going to be continued to be treated with Synthroid at a home dose. The patient's TSH was last checked on 07/07/16 and was 0.7. I will check it in the morning. 11. For DVT prophylaxis, the patient is anticoagulated and INRs are going to be checked daily. 12. For code status, the patient's code status is full and his healthcare proxy is his . TIME SPENT: Approximately 75 minutes was spent on admission of this patient, more than half that time was spent [id number] with the patient during the interview and physical exam. [id number]/[facility] #: [id number] VIGNESH
--- NOTE | 2017-04-15 16:58 | ED ---
Dru Obrien Alfonso, scribed for Ronnie Clarke MD on 04/15/17 at 0736 . Lower Extremity - HPI Summary HPI Summary: This patient is a 51 year old M BIBA to [facility] with a chief complaint of lower LLE pain and erythema since a few weeks ago. He is on Coumadin. He does not ambulate at baseline. The patient rates the aching pain 6/10 in severity. Symptoms alleviated by nothing. - History of Current Complaint Chief Complaint: EDExtremityLower Stated Complaint: LEFT ANKLE/FOOT PAIN Time Seen by Provider: 04/15/17 07:13 Hx Obtained From: Patient Onset of Pain: Prior to Arrival Onset/Duration: Weeks Severity Currently: Moderate Pain Intensity: 6 Pain Scale Used: 0-10 Numeric Timing: Constant Location: Is Discrete @ - lower LLE Character Of Pain: Aching Associated Signs And Symptoms: Negative: Fever Alleviating Factor(s): Nothing Able to Bear Weight: No - He does not ambulate at baseline - Allergies/Home Medications Allergies/Adverse Reactions: Allergies Allergy/AdvReac Type Severity Reaction Status Date / Time Tigecycline Allergy Rash Verified 07/21/16 00:29 Home Medications: Home Medications B12 1 tab PO DAILY 04/15/17 [History Confirmed 04/15/17] Multi Vitamin 1 tab PO DAILY 04/15/17 [History Confirmed 04/15/17] PMH/Surg Hx/FS Hx/Imm Hx Endocrine/Hematology History: Reports: Hx Diabetes, Hx Thyroid Disease, Hx Anemia Cardiovascular History: Reports: Hx Atrial Fibrillation, Hx Congestive Heart Failure, Hx Deep Vein Thrombosis, Hx Hypercholesterolemia, Hx Hypertension, Hx Peripheral Vascular Disease, Other Cardiovascular Problems/Disorders - cardiomyopathy, IDDM, CHRONIC RENAL FAILURE, MORBID OBESITY Denies: Hx Pacemaker/ICD Respiratory History: Reports: Hx Asthma, Hx Chronic Obstructive Pulmonary Disease (COPD) - on 4-5L home O2, Hx Pneumonia, Hx Pulmonary Embolism, Hx Sleep Apnea - compliant with cpap, Other Respiratory Problems/Disorders - SLEEP APNEA History: Reports: Hx Chronic Renal Failure Comment Only: Other Problems/Disorders - CKD Musculoskeletal History: Reports: Hx Arthritis, Hx Back Problems, Hx Gout Sensory History: Denies: Hx Cataracts, Hx Contacts or Glasses, Hx Eye Injury, Hx Hearing Aid, Hx Hearing Problem, Other Sensory Impairments Opthamlomology History: Denies: Hx Cataracts, Hx Contacts or Glasses, Hx Eye Injury, Other Sensory Impairments Psychiatric History: Denies: Hx Panic Disorder - Surgical History Surgery Procedure, Year, and Place: WOUND DEBRIDING 1989 - Immunization History Date of Tetanus Vaccine: utd Date of Influenza Vaccine: fall 2014 Infectious Disease History: Yes Infectious Disease History: Reports: Hx of Known/Suspected MRSA Denies: Hx Shingles, Hx Tuberculosis, History Other Infectious Disease, Traveled Outside the [place] in Last 30 Days - Family History Known Family History: Positive: Cardiac Disease, Diabetes - Social History Alcohol Use: None Hx Substance Use: No Substance Use Type: Reports: None Hx Tobacco Use: Yes Smoking Status (MU): Former Smoker Type: Cigars Review of Systems Negative: Fever Positive: Other - lower LLE pain Positive: Other - lower LLE erythema All Other Systems Reviewed And Are Negative: Yes Physical Exam - Summary Physical Exam Summary: VITAL SIGNS: Reviewed. GENERAL: Patient is a well-developed and morbidly obese male who is lying comfortable in the stretcher. Patient is not in any acute respiratory distress. HEAD AND FACE: No signs of trauma. No ecchymosis, hematomas or skull depressions. No sinus tenderness. EYES: PERRLA, EOMI x 2, No injected conjunctiva, no nystagmus. EARS: Hearing grossly intact. Ear canals and tympanic membranes are within normal limits. MOUTH: Oropharynx within normal limits. NECK: Supple, trachea is midline, no adenopathy, no JVD, no carotid bruit, no c- spine tenderness, neck with full ROM. CHEST: Symmetric, no tenderness at palpation LUNGS: Clear to auscultation bilaterally. No wheezing or crackles. CVS: Regular rate and rhythm, S1 and S2 present, no murmurs or gallops appreciated. ABDOMEN: Soft, non-tender. No signs of distention. No rebound no guarding. Bowel sounds are normal. Hernia in lower abdomen, non-incarcerated, and easily reducible. EXTREMITIES: FROM in all major joints, no edema, no cyanosis or clubbing. NEURO: Alert and oriented x 3. No acute neurological deficits. Speech is normal and follows commands. SKIN: Dry and warm. LLE: Erythema and tenderness streaking up above the knee. Triage Information Reviewed: Yes Vital Signs On Initial Exam: Initial Vitals Temp Pulse Resp BP Pulse Ox 99 F 83 22 169/93 98 04/15/17 06:11 04/15/17 06:11 04/15/17 06:11 04/15/17 06:11 04/15/17 06:11 Vital Signs Reviewed: Yes - [place] Coma Scale Coma Scale Total: 15 Diagnostics - Vital Signs Vital Signs Temp Pulse Resp BP Pulse Ox 04/15/17 06:11 99 F 83 22 169/93 98 - Laboratory Lab Results: Lab Results 04/15/17 04/15/17 04/15/17 Range/Units 07:46 07:46 07:46 WBC 23.6 H (3.5-10.8) 10^3/ul RBC 4.05 (4.0-5.4) 10^6/ul Hgb 11.1 L (14.0-18.0) g/dl Hct 34 L (42-52) % MCV 84 (80-94) fL MCH 27 (27-31) pg MCHC 33 (31-36) g/dl RDW 18 H (10.5-15) % Plt Count 461 H (150-450) 10^3/ul MPV 7 L (7.4-10.4) um3 Neut % (Auto) 89.0 H (38-83) % Lymph % (Auto) 3.1 L (25-47) % Dawes % (Auto) 7.6 (1-9) % Eos % (Auto) 0.1 (0-6) % Baso % (Auto) 0.2 (0-2) % Absolute Neuts (auto) 21.0 H (1.5-7.7) 10^3/ul Absolute Lymphs (auto) 0.7 L (1.0-4.8) 10^3/ul Absolute Monos (auto) 1.8 H (0-0.8) 10^3/ul Absolute Eos (auto) 0 (0-0.6) 10^3/ul Absolute Basos (auto) 0.1 (0-0.2) 10^3/ul Absolute Nucleated RBC 0.04 10^3/ul Nucleated RBC % 0.2 ESR 108 H (0-20) mm/Hr INR (Anticoag Therapy) (0.77-1.02) Sodium 127 L (133-145) mmol/L Potassium 4.1 (3.5-5.0) mmol/L Chloride 90 L (101-111) mmol/L Carbon Dioxide 30 (22-32) mmol/L Anion Gap 7 (2-11) mmol/L BUN 94 H (6-24) mg/dL Creatinine 1.68 H (0.67-1.17) mg/dL Est GFR ( Amer) 55.5 (>60) Est GFR (Non-Af Amer) 43.1 (>60) BUN/Creatinine Ratio 56.0 H (8-20) Glucose 62 L (70-100) mg/dL Lactic Acid 0.5 (0.5-2.0) mmol/L Uric Acid 6.1 (4.4-7.6) mg/dL Calcium 10.3 (8.6-10.3) mg/dL Total Bilirubin 0.70 (0.2-1.0) mg/dL AST 48 H (13-39) U/L ALT 101 H (7-52) U/L Alkaline Phosphatase 197 H (34-104) U/L C-Reactive Protein 120.93 H (< 5.00) mg/L Total Protein 7.9 (6.4-8.9) g/dL Albumin 3.6 (3.2-5.2) g/dL Globulin 4.3 H (2-4) g/dL Albumin/Globulin Ratio 0.8 L (1-3) Urine Color Urine Appearance Urine pH (5-9) Ur Specific [place] (1.010-1.030) Urine Protein (Negative) Urine Ketones (Negative) Urine Blood (Negative) Urine Nitrate (Negative) Urine Bilirubin (Negative) Urine Urobilinogen (Negative) Ur Leukocyte Esterase (Negative) Urine WBC (Auto) (Absent) Urine RBC (Auto) (Absent) Urine Bacteria (Absent) Urine Glucose (Negative) 04/15/17 04/15/17 Range/Units 07:46 07:57 WBC (3.5-10.8) 10^3/ul RBC (4.0-5.4) 10^6/ul Hgb (14.0-18.0) g/dl Hct (42-52) % MCV (80-94) fL MCH (27-31) pg MCHC (31-36) g/dl RDW (10.5-15) % Plt Count (150-450) 10^3/ul MPV (7.4-10.4) um3 Neut % (Auto) (38-83) % Lymph % (Auto) (25-47) % Dawes % (Auto) (1-9) % Eos % (Auto) (0-6) % Baso % (Auto) (0-2) % Absolute Neuts (auto) (1.5-7.7) 10^3/ul Absolute Lymphs (auto) (1.0-4.8) 10^3/ul Absolute Monos (auto) (0-0.8) 10^3/ul Absolute Eos (auto) (0-0.6) 10^3/ul Absolute Basos (auto) (0-0.2) 10^3/ul Absolute Nucleated RBC 10^3/ul Nucleated RBC % ESR (0-20) mm/Hr INR (Anticoag Therapy) 3.67 H (0.77-1.02) Sodium (133-145) mmol/L Potassium (3.5-5.0) mmol/L Chloride (101-111) mmol/L Carbon Dioxide (22-32) mmol/L Anion Gap (2-11) mmol/L BUN (6-24) mg/dL Creatinine (0.67-1.17) mg/dL Est GFR ( Amer) (>60) Est GFR (Non-Af Amer) (>60) BUN/Creatinine Ratio (8-20) Glucose (70-100) mg/dL Lactic Acid (0.5-2.0) mmol/L Uric Acid (4.4-7.6) mg/dL Calcium (8.6-10.3) mg/dL Total Bilirubin (0.2-1.0) mg/dL AST (13-39) U/L ALT (7-52) U/L Alkaline Phosphatase (34-104) U/L C-Reactive Protein (< 5.00) mg/L Total Protein (6.4-8.9) g/dL Albumin (3.2-5.2) g/dL Globulin (2-4) g/dL Albumin/Globulin Ratio (1-3) Urine Color Straw Urine Appearance Clear Urine pH 6.0 (5-9) Ur Specific [place] 1.010 (1.010-1.030) Urine Protein 2+(100 mg/dl) H (Negative) Urine Ketones Negative (Negative) Urine Blood 1+ H (Negative) Urine Nitrate Negative (Negative) Urine Bilirubin Negative (Negative) Urine Urobilinogen Negative (Negative) Ur Leukocyte Esterase Negative (Negative) Urine WBC (Auto) Absent (Absent) Urine RBC (Auto) Trace(0-2/hpf) (Absent) Urine Bacteria Absent (Absent) Urine Glucose Negative (Negative) Result Diagrams: 04/15/17 07:46 04/15/17 07:46 Lab Statement: Any lab studies that have been ordered have been reviewed, and results considered in the medical decision making process. - Radiology Ankle XR Radiology Interpretation Completed By: Radiologist - The constellation of findings may represent advanced neuropathic arthropathy or sequela of chronic osteomyelitis. Correlate with clinical assessment. ED physician has reviewed this radiology report. Foot XR Radiology Interpretation Completed By: Radiologist - The constellation of findings may represent advanced neuropathic arthropathy or sequela of chronic osteomyelitis. Correlate with clinical assessment. ED physician has reviewed this radiology report. - EKG 0823 Cardiac Rate: NL EKG Rhythm: Sinus Rhythm - 84 BPM EKG Interpretation: No ST elevations. Lower Extremity Course/Dx - Course Assessment/Plan: This patient is a 51 year old M BIBA to [facility] with a chief complaint of lower LLE pain and erythema since a few weeks ago. He is on Coumadin. He does not ambulate at baseline. The patient rates the aching pain 6/ 10 in severity. Symptoms alleviated by nothing. An EKG reveals Sinus Rhythm [address] elevations. Foot XR reveals, per radiologist, The constellation of findings may represent advanced neuropathic arthropathy or sequela of chronic osteomyelitis. Correlate with clinical assessment. ED physician has reviewed this radiology report. Ankle XR reveals, per radiologist, The constellation of findings may represent advanced neuropathic arthropathy or sequela of chronic osteomyelitis. Correlate with clinical assessment. ED physician has reviewed this radiology report. Test results shows WBC of 23.6, slight anemia, ESR of 108 , INR of 3.67, chronic renal insufficiency, CRP of 120, increased LFTs. Urinalysis negative for UTI. In the ED course the patient was given IV fluids, morphine for pain, Zofran for nausea, and Zosyn for the LLE cellulitis. I did not do an US LLE since the patient is already on Coumadin and is hyper coagulated. I consulted Dr. Crisostomo (hospitalist) at 0820 who agrees to admit. The patient is agreeable with this plan. The patient is hemodynamically stable, alert and oriented x3. - Diagnoses Differential Diagnosis/HQI/PQRI: Positive: Bursitis, Cellulitis, Contusion, DVT , Sprain, Strain Provider Diagnoses: Cellulitis of left lower extremity, Chronic renal failure, Elevated LFTs - Physician Notifications Discussed Care Of Patient With: Amanda Crisostomo Time Discussed With Above Provider: 08:20 Instructed by Provider To: Other - Consulted Dr. Crisostomo (hospitalist) at 0820 who agrees to admit. Discharge - Discharge Plan Condition: Stable Disposition: ADMITTED TO [facility] documentation as recorded by the Dru gillespie Alfonso accurately reflects the service I personally performed and the decisions made by Vince hazel Walter, MD.
[2017-04-15] MEDS: Insulin ISOPH/REG 70/30 (*) 1 UNITS UNIT SUBCUT SCH (18:06)
--- NOTE | 2017-04-15 19:05 | RAD ---
INDICATION: LEFT lower extremity pain and edema. Cellulitis. COMPARISON: October 08, 2011 TECHNIQUE: Mena scale, color Doppler, and spectral analysis of the deep veins of the LEFT lower extremity. Vessel compression, phasicity, and augmentation assessed. REPORT: The LEFT common femoral, great saphenous, profunda femoral, femoral, popliteal, and posterior tibial veins are patent. The LEFT peroneal veins could not be visualized with magnitude of soft tissue edema limiting acoustic window. Patency of the RIGHT common femoral vein documented. IMPRESSION: 1. No evidence for above-knee LEFT lower extremity DVT. 2. Patent LEFT posterior tibial veins documented. The peroneal veins could not be assessed with magnitude of soft tissue edema limiting acoustic window..
[2017-04-15] MEDS: NS 0.9% 1000 ML* 1,000 ML IV SCH (20:03)
[2017-04-15] MEDS: Torsemide TAB* 20 MG PO SCH (22:14)
[2017-04-15] MEDS: Metoprolol Tartrate TAB* 25 MG PO SCH (22:15)
[2017-04-15] MEDS: Allopurinol TAB* 300 MG PO SCH (22:15)
[2017-04-15] MEDS: Docusate CAP* 100 MG PO SCH (22:16)
[2017-04-15] MEDS: Vancomycin(*) 1,250 MG in NS 0.9% 250 ML* 250 ML IVPB SCH (23:48)
[2017-04-16] MEDS: Levothyroxine TAB* 100 MCG TAB PO SCH (06:00)
[2017-04-16 06:24] LABS: Hematocrit 33 % (42-52); Hemoglobin 10.4 g/dl (14.0-18.0); Mean Corpuscular HGB Conc 32 g/dl (31-36); Mean Corpuscular Hemoglobin 27 pg (27-31); Mean Corpuscular Volume 85 fL (80-94); Mean Platelet Volume 7 um3 (7.4-10.4); Red Blood Count 3.88 10^6/ul (4.0-5.4); Red Cell Distribution Width 18 % (10.5-15); White Blood Count 18.6 10^3/ul (3.5-10.8)
[2017-04-16 06:25] LABS: Add Diff/Slide Review? Slide Review Added; Comments Flag Yes
[2017-04-16] MEDS: Albuterol 2.5 MG/3 ML NEB.SOL* (0.083%) INH PRN ×3 (06:26→17:41)
[2017-04-16] MEDS: oxyCODONE TAB* 5 MG TAB PO PRN ×3 (06:32→20:58)
[2017-04-16 06:59] LABS: Add Path Review? YES; Hypochromasia 1+; Schistocytes 1+
[2017-04-16] MEDS: NS 0.9% 1000 ML* 1,000 ML IV SCH (07:01)
[2017-04-16 07:25] LABS: Albumin 2.9 g/dL (3.2-5.2); BUN/Creatinine Ratio 52.5 (8-20); Calcium 9.2 mg/dL (8.6-10.3); EGFR African American 67.9 (>60); EGFR Non-African American 52.8 (>60); Globulin 3.2 g/dL (2-4); Potassium 4.8 mmol/L (3.5-5.0); Total Bilirubin 0.9 mg/dL (0.2-1.0); Total Protein 6.1 g/dL (6.4-8.9)
[2017-04-16 07:38] LABS: TSH (Thyroid Stimulating Horm) 2.05 mcIU/mL (0.34-5.60)
[2017-04-16] MEDS: Torsemide TAB* 20 MG PO SCH ×2 (08:49→21:00)
[2017-04-16] MEDS: Spironolactone TAB* 25 MG PO SCH (08:49)
[2017-04-16] MEDS: Metolazone TAB* 5 MG PO SCH (08:49)
[2017-04-16] MEDS: Insulin ISOPH/REG 70/30 (*) 1 UNITS UNIT SUBCUT SCH ×2 (08:50→17:12)
[2017-04-16] MEDS: Docusate CAP* 100 MG PO SCH ×2 (08:50→21:00)
[2017-04-16] MEDS: Metoprolol Tartrate TAB* 25 MG PO SCH ×2 (08:50→21:01)
[2017-04-16] MEDS: Atorvastatin* 40 MG TAB PO SCH (08:50)
[2017-04-16] MEDS: Allopurinol TAB* 300 MG PO SCH ×2 (08:50→21:01)
[2017-04-16] MEDS: Insulin LISPRO* 1 UNITS UNIT SUBCUT SCH ×4 (08:51→21:27)
--- NOTE | 2017-04-16 09:38 | PN ---
Subjective Date of Service: 04/16/17 Interval History: Patient seen and examined at bedside. Patient reports improved pain in his left leg this AM. He states he feels better this AM. Sugars slightly elevated. Family History: Unchanged from Admission Social History: Unchanged from Admission Past Medical History: Unchanged from Admission Objective Active Medications: Acetaminophen (Tylenol Tab*) 650 mg PO Q4H PRN Al Hydrox/Mg Hydrox/Simethicone (Maalox Plus*) 30 ml PO Q6H PRN Albuterol (Ventolin Hfa Inhaler*) 2 puff INH Q4HR PRN Albuterol (Ventolin 2.5 Mg/3 Ml Neb.Christy*) 2.5 mg INH Q4H PRN Allopurinol (Zyloprim Tab*) 300 mg PO BID GISELLA Atorvastatin Calcium (Lipitor*) 40 mg PO DAILY GISELLA Docusate Sodium (Colace Cap*) 100 mg PO BID GISELLA Fluticasone Propionate (Flonase Nasal [place] 50mcg*) 2 spray BOTH NARES DAILY PRN Cefepime HCl (Maxipime 2 Gm In Dextrose Duplex (*)) 2 gm in 50 mls @ 100 mls/ hr IV Q12H GISELLA Sodium Chloride (Ns 0.9% 1000 Ml*) 1,000 mls @ 75 mls/hr IV PER RATE GISELLA Vancomycin HCl 1,250 mg/ (Sodium Chloride) 250 mls @ 166.667 mls/hr IVPB Q12H GISELLA Insulin Human Isoph/Insulin Regular (Humulin 70/30 (*)) 30 units SUBCUT 0800, 1700 GISELLA Insulin Human Lispro (Humalog*) 0 units SUBCUT ACHS GISELLA Levothyroxine Sodium (Synthroid Tab*) 200 mcg PO DAILY@0600 GISELLA Metolazone (Zaroxolyn Tab*) 5 mg PO DAILY GISELLA Metoprolol Tartrate (Lopressor Tab*) 25 mg PO BID GISELLA Morphine Sulfate (Morphine Inj (Syringe)*) 2 mg IV Q4H PRN Oxycodone HCl (Roxycodone Tab*) 10 mg PO Q4H PRN Oxycodone/Acetaminophen (Percocet 5/325 Tab*) 1 tab PO Q4H PRN Pharmacy Consult (Vancomycin Per Pharmacy*) 1 note FOLLOW UP . PRN Pharmacy Profile Note (Vancomycin Trough Check) 1 note FOLLOW UP ONCE ONE Spironolactone (Aldactone Tab*) 50 mg PO DAILY GISELLA Torsemide (Demadex*) 40 mg PO BID GISELLA Warfarin Sodium (Coumadin Tab(*)) 7.5 mg PO DAILY@1700 [facility] Vital Signs Temp Pulse Resp BP Pulse Ox 98.9 F 92 20 146/62 99 04/16/17 08:13 04/16/17 08:13 04/16/17 08:13 04/16/17 08:13 04/16/17 08:13 Oxygen Devices in Use Now: Nasal Cannula Appearance: sitting up in bed, NAD Eyes: No Scleral Icterus, PERRLA Ears/Nose/Mouth/Throat: NL Teeth, Lips, Gums Neck: NL Appearance and Movements; NL JVP Respiratory: Symmetrical Chest Expansion and Respiratory Effort, Clear to Auscultation Cardiovascular: NL Sounds; No Murmurs; No JVD, RRR Abdominal: NL Sounds; No Tenderness; No Distention Extremities: - - LLE warm and erythematous Neurological: Alert and Oriented x 3, NL Muscle Strength and Tone Lines/Tubes/Other Access: Clean, Dry and Intact Peripheral IV Result Diagrams: 04/16/17 05:50 04/16/17 05:50 Additional Lab and Data: . Microbiology and Other Data: . Assess/Plan/Problems-Billing Patient is a 51 y/o M hx of morbid obesity, type 2 DM, hx of MRSA wound infection here with worsening LLE pain found to have sepsis on admission from LLE cellulitis/possible osteomyelitis. - Patient Problems (1) Sepsis Comment: Secondary to cellulitis. Leukocytosis and hyponetremia improving. Hold further IVF for now. Continue home diuretics. Blood Cx show no growth. (2) Cellulitis of left lower extremity Comment: Continue Cefepime and Vanocmycin based on pervious cultures. Given severity of pain will get MRI to assess for osteomyelitis. ID consult. (3) Chronic respiratory failure Comment: Stable. Secondary to COPD and likely obesity hypoventilation syndrome. 5L NC at baseline (4) Sleep apnea Comment: using home CPAP machine. (5) CKD (chronic kidney disease) stage 3, GFR 30-59 ml/min Comment: Stable. CR ~1.5 (6) COPD (chronic obstructive pulmonary disease) Comment: Stable; On 5 L 02 at home. Not wheezing/SOB noted (7) Insulin dependent diabetes mellitus Comment: Titrating NPH back to home dosing, increase to 40 bid today. Home insulin dose NPH 70/30 100units BID. (8) DVT prophylaxis Comment: Therapeutic INR on warfarin. (9) Full code status Status and Disposition: Inpatient for sepsis from cellulitis. Discharge home when stable.
[2017-04-16] MEDS: Cefepime 2 GM in Dextrose(*) 2 GM/50 ML BAG IV SCH ×2 (09:54→21:30)
[2017-04-16 10:31] LABS: C Reactive Protein 163.99 mg/L (< 5.00)
[2017-04-16] MEDS: Vancomycin(*) 1,250 MG in NS 0.9% 250 ML* 250 ML IVPB SCH ×2 (12:38→22:54)
--- NOTE | 2017-04-16 16:34 | RAD ---
Indication: LEFT ankle pain for 2 weeks. History of diabetes. Comparison: April 15, 2017 radiographs LEFT ankle and foot. Technique: [employer] 1.5 Tayler [id number] with GEM suite. Noncontrast MRI LEFT foot. Report: Fragmentation partial collapse of the mid foot with loss of the longitudinal arch. Contiguous T2 hyperintense marrow edema from the talus and calcaneus at the hindfoot through the tarsal bones of the midfoot and extension to involve the bases of the second, third, and fourth metatarsals. Corresponding loss of normal T1 marrow hyperintensity in the same distribution. Extensive superficial and deep soft tissue edema. Multilocular T2 hyperintense T1 hypointense fluid collection over the dorsum of the foot extending from medial to lateral flanking the transverse tarsal joint. IMPRESSION: Nonspecific pattern which may reflect cellulitis and multiple bone osteomyelitis involving the hind and midfoot with associated multilocular abscess collection over the dorsum of the foot versus advanced Charcot arthropathy with ganglion over the dorsum of the foot. Correlate with clinical assessment and consider tissue sampling for Gram stain and culture if deemed appropriate.
[2017-04-16] MEDS ORDERED: Insulin ISOPH/REG 70/30 (*) 1 UNITS UNIT SUBCUT SCH (17:00)
[2017-04-16] MEDS ORDERED: Warfarin TAB(*) 7.5 MG PO SCH (17:00)
[2017-04-16] MEDS: Morphine INJ* 2 MG/ML 1 ML SYRINGE (TWO MG - NEW SYRINGE VERSION) IV PRN (17:01)
[2017-04-17] MEDS: oxyCODONE TAB* 5 MG TAB PO PRN ×3 (04:11→21:35)
[2017-04-17] MEDS: Levothyroxine TAB* 100 MCG TAB PO SCH (05:47)
[2017-04-17] MEDS: NS 0.9% 1000 ML* 1,000 ML IV SCH (05:56)
[2017-04-17 06:58] LABS: Hematocrit 32 % (42-52); Mean Corpuscular HGB Conc 32 g/dl (31-36); Mean Corpuscular Hemoglobin 27 pg (27-31); Mean Corpuscular Volume 85 fL (80-94); Mean Platelet Volume 7 um3 (7.4-10.4); Red Blood Count 3.76 10^6/ul (4.0-5.4); Red Cell Distribution Width 18 % (10.5-15); White Blood Count 17.2 10^3/ul (3.5-10.8)
[2017-04-17 07:14] LABS: Add Diff/Slide Review? Slide Review Added; Comments Flag Yes
[2017-04-17 07:15] LABS: BUN/Creatinine Ratio 52.7 (8-20); Calcium 9.7 mg/dL (8.6-10.3); EGFR African American 65.2 (>60); EGFR Non-African American 50.7 (>60); Potassium 4.5 mmol/L (3.5-5.0)
[2017-04-17 07:44] LABS: Eosinophils % 9 % (0-6); Immature Granulocytes 3 % (0-9); Myelocytes % 1 % (0-1); Neutrophil % 79 % (38-83)
[2017-04-17] MEDS: Insulin LISPRO* 1 UNITS UNIT SUBCUT SCH ×4 (07:51→21:36)
--- NOTE | 2017-04-17 09:26 | PN ---
Subjective Date of Service: 04/17/17 Interval History: Patient seen and examined at bedside. Patient states pain improved. Patient states he got OOB yesterday and per nursing required 2 assist. Patient states no BM since admission. Family History: Unchanged from Admission Social History: Unchanged from Admission Past Medical History: Unchanged from Admission Objective Active Medications: Acetaminophen (Tylenol Tab*) 650 mg PO Q4H PRN Al Hydrox/Mg Hydrox/Simethicone (Maalox Plus*) 30 ml PO Q6H PRN Albuterol (Ventolin Hfa Inhaler*) 2 puff INH Q4HR PRN Albuterol (Ventolin 2.5 Mg/3 Ml Neb.Christy*) 2.5 mg INH Q4H PRN Allopurinol (Zyloprim Tab*) 300 mg PO BID GISELLA Atorvastatin Calcium (Lipitor*) 40 mg PO DAILY GISELLA Docusate Sodium (Colace Cap*) 100 mg PO BID GISELLA Fluticasone Propionate (Flonase Nasal [place] 50mcg*) 2 spray BOTH NARES DAILY PRN Cefepime HCl (Maxipime 2 Gm In Dextrose Duplex (*)) 2 gm in 50 mls @ 100 mls/ hr IV Q12H GISELLA Vancomycin HCl 1,250 mg/ (Sodium Chloride) 250 mls @ 166.667 mls/hr IVPB Q12H [facility] Insulin Human Isoph/Insulin Regular (Humulin 70/30 (*)) 50 units SUBCUT 0800, 1700 GISELLA Insulin Human Lispro (Humalog*) 0 units SUBCUT ACHS [facility] Levothyroxine Sodium (Synthroid Tab*) 200 mcg PO DAILY@0600 [facility] Metolazone (Zaroxolyn Tab*) 5 mg PO DAILY [facility] Metoprolol Tartrate (Lopressor Tab*) 25 mg PO BID GISELLA Morphine Sulfate (Morphine Inj (Syringe)*) 2 mg IV Q4H PRN Oxycodone HCl (Roxycodone Tab*) 10 mg PO Q4H PRN Oxycodone/Acetaminophen (Percocet 5/325 Tab*) 1 tab PO Q4H PRN Polyethylene Glycol/Electrolytes (Miralax*) 17 gm PO DAILY GISELLA Senna (Senokot Tab*) 2 tab PO BEDTIME GISELLA Spironolactone (Aldactone Tab*) 50 mg PO DAILY GISELLA Torsemide (Demadex*) 40 mg PO BID GISELLA Warfarin Sodium (Coumadin Tab(*)) 7.5 mg PO DAILY@1700 [facility] Vital Signs Temp Pulse Resp BP Pulse Ox 99.0 F 84 18 123/62 100 04/17/17 03:40 04/17/17 03:40 04/17/17 09:01 04/17/17 03:40 04/17/17 03:40 Oxygen Devices in Use Now: Nasal Cannula Appearance: sitting up in bed, NAD Eyes: No Scleral Icterus, PERRLA Ears/Nose/Mouth/Throat: NL Teeth, Lips, Gums Neck: NL Appearance and Movements; NL JVP Respiratory: Symmetrical Chest Expansion and Respiratory Effort, Clear to Auscultation Cardiovascular: NL Sounds; No Murmurs; No JVD, RRR Abdominal: NL Sounds; No Tenderness; No Distention Extremities: No Edema Skin: - - LLE erythema and induration extending foot to midcalf without any open area and palpable fluid collection. Lines/Tubes/Other Access: Clean, Dry and Intact Peripheral IV Result Diagrams: 04/17/17 06:32 04/17/17 06:32 Additional Lab and Data: . Microbiology and Other Data: . Assess/Plan/Problems-Billing Patient is a 51 y/o M hx of morbid obesity, type 2 DM, hx of MRSA wound infection here with worsening LLE pain found to have sepsis on admission from LLE cellulitis/possible osteomyelitis. - Patient Problems (1) Septicemia Comment: Present on admission and resolved. 2/4 Blood Cx growing gram + cocci. Screen positive for S. aureus and MRSA. ID consult pending. Continue Cefepime and Vancomycin. Repeat blood Cx in AM. D/w pearl technician that likely TTE would not be adequate study due to size so he would need YESENIA if concern for vegetation. (2) Cellulitis of left lower extremity Comment: Continue Cefepime and Vanocmycin based on previous cultures. MRI shows Charcot vs osteomyelitis. Ortho to eval. Elevate extremity. (3) Chronic respiratory failure Comment: Stable. Secondary to COPD and likely obesity hypoventilation syndrome. 5L NC at baseline (4) Sleep apnea Comment: using home CPAP machine. (5) CKD (chronic kidney disease) stage 3, GFR 30-59 ml/min Comment: Stable. CR ~1.5 (6) COPD (chronic obstructive pulmonary disease) Comment: Stable; On 5 L 02 at home. Not wheezing/SOB noted (7) Insulin dependent diabetes mellitus Comment: Titrating NPH back to home dosing, continue 50 bid today. Home insulin dose NPH 70/30 100units BID. (8) DVT prophylaxis Comment: Therapeutic INR on warfarin. (9) Full code status Status and Disposition: Inpatient for sepsis from cellulitis. May need IV abx at discharge.
[2017-04-17] MEDS: Cefepime 2 GM in Dextrose(*) 2 GM/50 ML BAG IV SCH (10:19)
[2017-04-17] MEDS: Insulin ISOPH/REG 70/30 (*) 1 UNITS UNIT SUBCUT SCH ×2 (10:24→17:49)
[2017-04-17] MEDS: Allopurinol TAB* 300 MG PO SCH ×2 (10:25→21:35)
[2017-04-17] MEDS: Spironolactone TAB* 25 MG PO SCH (10:25)
[2017-04-17] MEDS: Metoprolol Tartrate TAB* 25 MG PO SCH ×2 (10:26→21:34)
[2017-04-17] MEDS: Atorvastatin* 40 MG TAB PO SCH (10:26)
[2017-04-17] MEDS: Torsemide TAB* 20 MG PO SCH ×2 (10:26→21:53)
[2017-04-17] MEDS: Metolazone TAB* 5 MG PO SCH (10:26)
[2017-04-17] MEDS: Docusate CAP* 100 MG PO SCH ×2 (10:26→21:35)
[2017-04-17] MEDS: Polyethylene Glycol 3350* 17 GM PACKET PO SCH (10:27)
[2017-04-17] MEDS ORDERED: Vancomycin Trough Check NOTE FOLLOW UP ONE (11:00)
[2017-04-17] MEDS: oxyCODONE/Acetamin 5/325 MG* TAB PO PRN (12:03)
[2017-04-17] MEDS: Albuterol 2.5 MG/3 ML NEB.SOL* (0.083%) INH PRN ×2 (12:17→21:07)
[2017-04-17] MEDS: Vancomycin(*) 1,250 MG in NS 0.9% 250 ML* 250 ML IVPB SCH (12:42)
--- NOTE | 2017-04-17 13:36 | PN ---
Progress Note - Progress Note Date of Service: 04/17/17 Note: Left foot aspirated looking for pus anterior to the ankle joint. Aspiration done at request of Dr. Mckee who will complete the consult. Able to SLR left and move the ankle up and down a little. Possible slight fluctuance left ankle dorsum. Aspirate resulted in a few drops of bloody fluid. C&S requested. MD Adams.
--- NOTE | 2017-04-17 14:28 | CONS ---
CONSULTATION NOTE: DATE OF CONSULT: 04/17/17 PROVIDER: Jose Mckee MD CHIEF COMPLAINT: Left leg pain. HISTORY OF PRESENT ILLNESS: Mr. Anderson is a 51-year-old man with an extensive medical hisotry including morbid obesity, DVT, COPD, IDDM, PVD, hypertension . He presented to [facility] Emergency Room on 04/15/17, complaining of left leg pain onset, was roughly 2 weeks ago, but it become so severe that he was unable to walk on 04/15/17, which warranted his visit. His left heel is described to be the most painful area. He has taken oxycodone at home for relief. The patient denies any fevers or chills. He does have a history of diabetic neuropathy. He has had his second toe amputated on the right foot by Dr. Mckee roughly 1 month ago. He denies that he has had any fever, chills, fatigue, chest pain, shortness of breath, dizziness or confusion. PHYSICAL EXAM: Vital signs: Temperature 98.4, pulse rate 83, respiratory rate 20, oxygen saturation 99%, blood pressure 135/63. General: The patient was seen lying in bed. He appears comfortable. He is in no acute distress. Skin: Bilateral lower extremities shows chronic venous stasis hyperpigmentation through mid calf with associated skin thickening and flaking. No lacerations. No excoriations. No ulcerations. The left foot is nonfluctuant. It is warm to touch. MSK: L foot is moderately tender, primarily around the ankle joint. Area of greatest tenderness is the lateral ankle. There is obvious chronic rosendo deformity. Range of motion: The patient has very limited plantar flexion. He has good dorsiflexion. His dorsalis pedis and posterior tibial pulses are not palpable. He has brisk capillary refill distally. He lacks sensation to the majority of the left foot, but with deep palpation he does sense pain in the heel and ankle region. LABORATORY DATA: Upon presentation; white blood cell count was 23.6, which has trend down to 17.2 today. On 04/15/17, ESR was 108. Culture of left ankle was positive for MRSA, staph aureus IMAGING: MRI done on 04/16/17 demonstrates nonspecific pattern, which may reflect cellulitis and multiple bone osteomyelitis involving the hind and midfoot with associated multilocular abscess collection over the dorsum of the foot versus advanced Charcot arthropathy with ganglion over the dorsum of the foot. IMPRESSION: Charcot arthropathy versus osteomyelitis versus abscess. PLAN: Infectious Disease has been consulted. The patient will continue with vancomycin per hospitalist service and infectious disease service. This afternoon, Dr. Mendoza will tentatively aspirate any fluid collection that is seen on MRI to determine etiology of this potential infection. Patient will keep foot elevated to evaluate for improvement of erythema and edema. RAI MULLEN [id number]/[facility] #: [id number] VIGNESH
[2017-04-17] MEDS ORDERED: Vancomycin per Pharmacy* NOTE FOLLOW UP PRN (17:22)
[2017-04-17] MEDS: Senna TAB PO SCH (21:35)
--- NOTE | 2017-04-17 22:13 | CONS ---
CONSULTATION REPORT: DATE OF CONSULTATION: 04/17/17 REQUESTING PROVIDER: Liseth Nation NP CONSULTING SERVICE: Infectious Disease. REASON FOR CONSULTATION: Staph bacteremia, left foot cellulitis. IMPRESSION: 1. Few days of left foot pain and swelling. MRI shows marrow changes in the base of the metatarsals and the tarsal bones of the mid foot, the talus, and calcaneus. Given his diabetes and obesity and lack of an ulcer over the ankle, I think that is more likely a Charcot joint. He does have a fluid collection seen on the dorsum of the foot seen on the MRI, which was aspirated by Dr. Mendoza today. He grossly saw some bloody fluid that has been sent to the lab and a gram stain and culture are pending. He does have redness and swelling in the foot. This could be a hematoma. It could be a small abscess and associated cellulitis. He has Staphylococcus aureus in 2 of 4 blood culture bottle. So, it is more likely infectious. He does not have tenderness over the ankle joint and does not have pain with range of motion of the ankle. 2. Morbid obesity. 3. Diabetes with neuropathy and nephropathy. 4. History of MRSA infection, right second toe including acute osteomyelitis and gangrenous ischemia, status post toe amputation on 03/01/17. RECOMMENDATIONS: Stop vancomycin and cefepime. Start Ancef 2 g IV every 8 hours. Recheck blood cultures tomorrow as you have done. We will await the cultures from his foot and follow his exam here. He does not have peripheral stigmata of infective endocarditis and only has 2 of 4 blood culture bottles positive positive for staph, so I think infective endocarditis is unlikely. He does not have prosthetic material present or any focal pain elsewhere to suggest another focus of staph infection. HISTORY OF PRESENT ILLNESS: This is a 51-year-old man obesity and diabetes recently in the hospital with MRSA infection of the right second toe, which was amputated and now with left foot swelling and pain with weightbearing, came on gradually over a few days. His would elevate it or rub it and that would help a little bit. However, his symptoms worsened and persisted though without fevers, chills, sweats or anorexia. So, he came to the hospital on 04/15/17. He was taking pain medicine oxycodone at home that helped, though once he was out of it, he felt could not control the pain at home. When he got here, his white count was 23,000. He was afebrile and normotensive. He was started on vancomycin and cefepime. Blood cultures were sent, 2 of 4 bottles growing methicillin-sensitive Staphylococcus aureus. MRI of his foot with findings as above. He was seen by Orthopedics today and he had the aspiration. He still has some pain with weightbearing, but moving his ankle does not bother him. PHYSICAL EXAMINATION: Skin: There is no rash or splinter hemorrhages. Musculoskeletal: The right second toe is surgical absent. The surgical incision has a dry eschar. LABORATORY DATA: White blood cell count 17, hemoglobin 10, platelets 446. Creatinine is 1.4. CRP was 163 on 04/16/17. Please see impressions and recommendations outlined above, which I have discussed with Liseth Nation NP. Thank you for asking me to see Mr. Anderson in consultation. [id number]/[facility] #: [id number] MTDD
[2017-04-18] MEDS: Vancomycin(*) 750 MG in NS 0.9% 250 ML* 250 ML IVPB SCH ×3 (00:04→23:38)
[2017-04-18] MEDS: oxyCODONE TAB* 5 MG TAB PO PRN ×4 (03:48→20:34)
[2017-04-18] MEDS: Levothyroxine TAB* 100 MCG TAB PO SCH (05:37)
[2017-04-18 06:44] LABS: Hematocrit 34 % (42-52); Hemoglobin 10.7 g/dl (14.0-18.0); Mean Corpuscular HGB Conc 32 g/dl (31-36); Mean Corpuscular Hemoglobin 27 pg (27-31); Mean Corpuscular Volume 85 fL (80-94); Mean Platelet Volume 7 um3 (7.4-10.4); Red Cell Distribution Width 18 % (10.5-15); White Blood Count 15.5 10^3/ul (3.5-10.8)
[2017-04-18 07:10] LABS: Add Diff/Slide Review? Slide Review Added; Comments Flag Yes
[2017-04-18] MEDS ORDERED: ceFAZolin 2 GM PREMIX (*) 2 GM/50 ML BAG IVPB SCH (08:00)
[2017-04-18] MEDS: Insulin LISPRO* 1 UNITS UNIT SUBCUT SCH ×4 (08:33→21:35)
[2017-04-18] MEDS: Polyethylene Glycol 3350* 17 GM PACKET PO SCH (08:48)
[2017-04-18] MEDS: Metoprolol Tartrate TAB* 25 MG PO SCH ×2 (08:51→20:36)
[2017-04-18] MEDS: Atorvastatin* 40 MG TAB PO SCH (08:51)
[2017-04-18] MEDS: Metolazone TAB* 5 MG PO SCH (08:51)
[2017-04-18] MEDS: Allopurinol TAB* 300 MG PO SCH ×2 (08:51→20:36)
[2017-04-18] MEDS: Torsemide TAB* 20 MG PO SCH ×3 (08:51→18:12)
[2017-04-18] MEDS: Docusate CAP* 100 MG PO SCH ×2 (08:51→20:35)
[2017-04-18] MEDS: Spironolactone TAB* 25 MG PO SCH (08:51)
[2017-04-18] MEDS: Insulin ISOPH/REG 70/30 (*) 1 UNITS UNIT SUBCUT SCH ×2 (08:52→18:06)
--- NOTE | 2017-04-18 08:57 | PN ---
Progress Note - Progress Note Date of Service: 04/18/17 SOAP: Subjective: []Patient seen at bedside with his family present. He reports much decreased pain, swelling and redness of his left foot. Objective: [] Vital Signs Temp 97.6 F 04/18/17 04:02 Pulse 77 04/18/17 04:02 Resp 18 04/18/17 08:51 BP 125/58 04/18/17 04:02 Pulse Ox 99 04/18/17 04:02 Intake & Output 04/17/17 04/18/17 04/18/17 18:59 06:59 18:59 Intake Total 1510 3135 Output Total 3200 2550 Balance -1690 585 Intake: IV Fluids 90 35 NS (0.9%) 90 35 IVPB 300 270 cefepime 50 vancomycin 250 270 Oral 1120 2830 Output: Urine 3200 2550 Other: Estimated Void Large Medium # Bowel Movements 0 0 # Voids 2 1 Laboratory Last Values WBC 15.5 10^3/ul (3.5-10.8) H 04/18/17 06:26 RBC 4.00 10^6/ul (4.0-5.4) 04/18/17 06:26 Hgb 10.7 g/dl (14.0-18.0) L 04/18/17 06:26 Hct 34 % (42-52) L 04/18/17 06:26 MCV 85 fL (80-94) 04/18/17 06:26 MCH 27 pg (27-31) 04/18/17 06:26 MCHC 32 g/dl (31-36) 04/18/17 06:26 RDW 18 % (10.5-15) H 04/18/17 06:26 Plt Count 453 10^3/ul (150-450) H 04/18/17 06:26 MPV 7 um3 (7.4-10.4) L 04/18/17 06:26 Immature Gran % (Auto) 3 % (0-9) 04/17/17 06:32 Neut % (Auto) 83.5 % (38-83) H 04/18/17 06:26 Lymph % (Auto) 3.6 % (25-47) L 04/18/17 06:26 [place] % (Auto) 5.9 % (1-9) 04/18/17 06:26 Eos % (Auto) 5.6 % (0-6) 04/18/17 06:26 Baso % (Auto) 1.4 % (0-2) 04/18/17 06:26 Absolute Neuts (auto) 13.0 10^3/ul (1.5-7.7) H 04/18/17 06:26 Absolute Lymphs (auto) 0.6 10^3/ul (1.0-4.8) L 04/18/17 06:26 Absolute Monos (auto) 0.9 10^3/ul (0-0.8) H 04/18/17 06:26 Absolute Eos (auto) 0.9 10^3/ul (0-0.6) H 04/18/17 06:26 Absolute Basos (auto) 0.2 10^3/ul (0-0.2) 04/18/17 06:26 Absolute Nucleated RBC 0.01 10^3/ul 04/18/17 06:26 Neutrophils % 79 % (38-83) 04/17/17 06:32 Band Neutrophils % 2 % (0-8) 04/17/17 06:32 Lymphocytes % 1 % (25-47) L 04/17/17 06:32 Monocytes % 6 % (0-13) 04/17/17 06:32 Eosinophils % 9 % (0-6) H 04/17/17 06:32 Basophils % 2 % (0-2) 04/17/17 06:32 Myelocytes % 1 % (0-1) 04/17/17 06:32 Nucleated RBC % 0.1 04/18/17 06:26 Normal RBC Morphology Not Reportable 04/17/17 06:32 Hypochromasia 1+ 04/16/17 05:50 Elliptocytes 1+ 04/17/17 06:32 Schistocytes 1+ 04/16/17 05:50 ESR 108 mm/Hr (0-20) H 04/15/17 07:46 Hem Pathologist Commnt 04/16/17 05:50 INR (Anticoag Therapy) 2.13 (0.77-1.02) H 04/17/17 06:32 Sodium 135 mmol/L (133-145) 04/17/17 06:32 Potassium 4.5 mmol/L (3.5-5.0) 04/17/17 06:32 Chloride 96 mmol/L (101-111) L 04/17/17 06:32 Carbon Dioxide 31 mmol/L (22-32) 04/17/17 06:32 Anion Gap 8 mmol/L (2-11) 04/17/17 06:32 BUN 77 mg/dL (6-24) H 04/17/17 06:32 Creatinine 1.46 mg/dL (0.67-1.17) H 04/17/17 06:32 Est GFR ( Amer) 65.2 (>60) 04/17/17 06:32 Est GFR (Non-Af Amer) 50.7 (>60) 04/17/17 06:32 BUN/Creatinine Ratio 52.7 (8-20) H 04/17/17 06:32 Glucose 94 mg/dL (70-100) 04/17/17 06:32 POC Glucose (mg/dL) 103 mg/dL (70-100) H 04/18/17 07:51 Lactic Acid 0.5 mmol/L (0.5-2.0) 04/15/17 07:46 Uric Acid 6.1 mg/dL (4.4-7.6) 04/15/17 07:46 Calcium 9.7 mg/dL (8.6-10.3) 04/17/17 06:32 Total Bilirubin 0.90 mg/dL (0.2-1.0) 04/16/17 05:50 AST 45 U/L (13-39) H 04/16/17 05:50 ALT 92 U/L (7-52) H 04/16/17 05:50 Alkaline Phosphatase 178 U/L (34-104) H 04/16/17 05:50 C-Reactive Protein 163.99 mg/L (< 5.00) H 04/16/17 05:50 Total Protein 6.1 g/dL (6.4-8.9) L 04/16/17 05:50 Albumin 2.9 g/dL (3.2-5.2) L 04/16/17 05:50 Globulin 3.2 g/dL (2-4) 04/16/17 05:50 Albumin/Globulin Ratio 0.9 (1-3) L 04/16/17 05:50 TSH 2.05 mcIU/mL (0.34-5.60) 04/16/17 05:50 Urine Color Straw 04/15/17 07:57 Urine Appearance Clear 04/15/17 07:57 Urine pH 6.0 (5-9) 04/15/17 07:57 Ur Specific [place] 1.010 (1.010-1.030) 04/15/17 07:57 Urine Protein 2+(100 mg/dl) (Negative) H 04/15/17 07:57 Urine Ketones Negative (Negative) 04/15/17 07:57 Urine Blood 1+ (Negative) H 04/15/17 07:57 Urine Nitrate Negative (Negative) 04/15/17 07:57 Urine Bilirubin Negative (Negative) 04/15/17 07:57 Urine Urobilinogen Negative (Negative) 04/15/17 07:57 Ur Leukocyte Esterase Negative (Negative) 04/15/17 07:57 Urine WBC (Auto) Absent (Absent) 04/15/17 07:57 Urine RBC (Auto) Trace(0-2/hpf) (Absent) 04/15/17 07:57 Urine Bacteria Absent (Absent) 04/15/17 07:57 Urine Glucose Negative (Negative) 04/15/17 07:57 Vancomycin Trough 19.4 mcg/mL 04/17/17 10:47 General: Well appearing and interactive sitting up in bed. LLE: Foot is diffusely edematous, though improved from yesterday. Mild diffuse erythema of the foot without streaking up the leg. DP pulse 1+, PT nonpalpable. Tenderness of dorsal midfoot and medial hindfoot decreased from previous. DF/PF intact. No ulcers or open lesions. Assessment: []left foot infection in the setting of diabetic neuropathy and Charcot neuroarthropathy. Plan: []Per ID continue ancef 1 g IV Q 8 hours Washout tomorrow in OR with Dr. Rylee PERES 04/19/17
--- NOTE | 2017-04-18 09:28 | CONSULT ---
Consult Consult: 04/17/17 orthopedic consultation addendum please see note by RAI Devi, dated 04/17/17 for full H&P. I saw and evaluated Bautista on the evening of 04/17/17, around 5:30 PM. He is admitted with a chief complaint of left foot pain and swelling. History of present illness:He reports the pain and swelling in the left foot has been worsening over the past week or so. He denies any fevers or chills. It is daily, mild, dull. It is worst with trying to walk. It is improved with rest and elevation. I know Bautista well, as I recently performed a right-sided second toe amputation for an ulcer with underlying osteomyelitis. He has done well after that surgery on the right side. This admission is for a new problem. PFSH:He is morbidly obese, has diabetes, and has diabetic neuropathy in his feet. He is not a smoker. Review of systems: Negative for fever, chills, chest pain, shortness of breath , abdominal pain, rash physical exam: Well appearing and in no apparent distress Normal mood and affect Alert and oriented x3 Abdomen soft and nontender Temp Pulse Resp BP Pulse Ox 97.6 F 77 18 125/58 99 04/18/17 04:02 04/18/17 04:02 04/18/17 08:51 04/18/17 04:02 04/18/17 04:02 On the right foot: His surgical incision site is well healed at this point On the left foot: His pulses are nonpalpable. The foot is diffusely swollen with some erythema. The foot is warm. He does have some tenderness along the dorsal midfoot, as well as along the medial hindfoot. He is able to flex and extend his ankle and toes with minimal discomfort. He has decreased sensation per his baseline. There is no erythema tracking up the leg. There are no breaks in the skin or ulcers. There is some obvious midfoot deformity from Charcot changes. Imaging: X-rays of the left foot and ankle were independently interpreted and show midfoot Charcot changes. MRI of the foot reveals increased signal uptake throughout the midfoot, which could be from Charcot, or osteomyelitis. There are some fluid collections in the dorsal midfoot, as well as along the medial hindfoot. ultrasound was negative for a DVT Labs since admission: White blood count has been between 15 and 23 ESR 108 CRP between 120 and 160 Yesterday, he had fluid aspirated from the dorsal foot collection, which is growing MRSA. Assessment/Plan: 51-year-old male with left foot infection in the setting of diabetic neuropathy and Charcot neuroarthropathy. There is no obvious break in the skin or ulcer. It's possible that he had a hematoma formation from his Charcot and an elevated INR in the 4's. This may have been seeded. . I discussed this with Bautista as well as Dr. Cook, of infectious diseases. We felt that irrigation and debridement of the fluid collections would help with the infection and improve the chances that antibiotics will clear the infection. Bautista and I discussed the risks and benefits, and potential pros and cons of surgery at length. After this discussion, he expressed his desire to move forward with an irrigation and debridement. We did discuss that there is a risk that even with irrigation and debridement, we are unable to clear this infection. the decision was made for surgery. The plan will be for an irrigation and debridement tomorrow. Jose Mckee MD
[2017-04-18] MEDS ORDERED: Buffered Lidocaine 0.9% SYRIN* 5 ML/SYR SYRINGE INTRADERM ONE (13:41)
--- NOTE | 2017-04-18 15:22 | PN ---
Subjective Date of Service: 04/18/17 Interval History: Patient seen and examined at bedside. Patient states pain controlled. He denies SOB, chest pain. Bx performed yesterday by Dr. Mendoza. Sugars controlled. Plan for I&D tomorrow. Family History: Unchanged from Admission Social History: Unchanged from Admission Past Medical History: Unchanged from Admission Objective Active Medications: Acetaminophen (Tylenol Tab*) 650 mg PO Q4H PRN Al Hydrox/Mg Hydrox/Simethicone (Maalox Plus*) 30 ml PO Q6H PRN Albuterol (Ventolin Hfa Inhaler*) 2 puff INH Q4HR PRN Albuterol (Ventolin 2.5 Mg/3 Ml Neb.Christy*) 2.5 mg INH Q4H PRN Allopurinol (Zyloprim Tab*) 300 mg PO BID GISELLA Atorvastatin Calcium (Lipitor*) 40 mg PO DAILY GISELLA Docusate Sodium (Colace Cap*) 100 mg PO BID GISELLA Famotidine (Pepcid Iv*) 20 mg IV ONCE ONE Fluticasone Propionate (Flonase Nasal [place] 50mcg*) 2 spray BOTH NARES DAILY PRN Vancomycin HCl 750 mg/ Sodium (Chloride) 250 mls @ 166.667 mls/hr IVPB Q12H GISELLA Lactated Ringer's (Lactated Ringers 1000 Ml Bag*) 1,000 mls @ 125 mls/hr IV PER RATE [facility] Insulin Human Isoph/Insulin Regular (Humulin 70/30 (*)) 50 units SUBCUT 0800, 1700 GISELLA Insulin Human Lispro (Humalog*) 0 units SUBCUT ACHS [facility] Levothyroxine Sodium (Synthroid Tab*) 200 mcg PO DAILY@0600 GISELLA Metoclopramide HCl (Reglan Iv*) 10 mg IV SLOW PU ONCE ONE Metolazone (Zaroxolyn Tab*) 5 mg PO DAILY [facility] Metoprolol Tartrate (Lopressor Tab*) 25 mg PO BID GISELLA Morphine Sulfate (Morphine Inj (Syringe)*) 2 mg IV Q4H PRN Oxycodone HCl (Roxycodone Tab*) 10 mg PO Q4H PRN Oxycodone/Acetaminophen (Percocet 5/325 Tab*) 1 tab PO Q4H PRN Polyethylene Glycol/Electrolytes (Miralax*) 17 gm PO DAILY [facility] Senna (Senokot Tab*) 2 tab PO BEDTIME GISELLA Spironolactone (Aldactone Tab*) 50 mg PO DAILY GISELLA Torsemide (Demadex*) 40 mg PO 0900,1600 [facility] Vital Signs Temp Pulse Resp BP Pulse Ox 97.6 F 80 16 139/43 100 04/18/17 04:02 04/18/17 07:47 04/18/17 14:35 04/18/17 07:47 04/18/17 07:47 Oxygen Devices in Use Now: Nasal Cannula Appearance: sitting up in bed, NAD Eyes: No Scleral Icterus, PERRLA Ears/Nose/Mouth/Throat: NL Teeth, Lips, Gums, Mucous Membranes Moist Neck: NL Appearance and Movements; NL JVP, No Thyroid Enlargement, Masses Respiratory: Symmetrical Chest Expansion and Respiratory Effort, Clear to Auscultation Cardiovascular: NL Sounds; No Murmurs; No JVD, RRR Abdominal: NL Sounds; No Tenderness; No Distention Skin: - - erythematous LLE ankle and foot; no areas of fluctulance. Neurological: Alert and Oriented x 3 Lines/Tubes/Other Access: Clean, Dry and Intact Peripheral IV Nutrition: Taking PO's Result Diagrams: 04/18/17 06:26 04/17/17 06:32 Additional Lab and Data: . Microbiology and Other Data: . Assess/Plan/Problems-Billing Patient is a 51 y/o M hx of morbid obesity, type 2 DM, hx of MRSA wound infection here with worsening LLE pain found to have sepsis on admission from LLE cellulitis/possible osteomyelitis. - Patient Problems (1) Septicemia Comment: Sepsis resolved. Appreciate ID input. Infective endocarditis seems unlikely. Continue Vancomycin. Repeat blood cultures sent this morning. No need for YESENIA at this time. (2) Cellulitis of left lower extremity Comment: Continue Vancomycin. Appreciate Ortho eval. Bx from foot sent yesterday and culture growing S. aureus. Plan for I&D tomorrow AM. (3) Chronic respiratory failure Comment: Stable. Secondary to COPD and likely obesity hypoventilation syndrome. 5L NC at baseline (4) Sleep apnea Comment: using home CPAP machine. (5) CKD (chronic kidney disease) stage 3, GFR 30-59 ml/min Comment: Stable. CR ~1.5 (6) COPD (chronic obstructive pulmonary disease) Comment: Stable; On 5 L 02 at home. Not wheezing/SOB noted (7) Insulin dependent diabetes mellitus Comment: Titrating NPH back to home dosing, continue 50 bid today. Home insulin dose NPH 70/30 100units BID. (8) DVT prophylaxis Comment: Therapeutic INR on warfarin. (9) Full code status Status and Disposition: Inpatient for sepsis from cellulitis. I&D planned for tomorrow.
[2017-04-18] MEDS: Albuterol 2.5 MG/3 ML NEB.SOL* (0.083%) INH PRN (19:42)
[2017-04-18] MEDS: Senna TAB PO SCH (20:35)
[2017-04-18] MEDS: Morphine INJ* 2 MG/ML 1 ML SYRINGE (TWO MG - NEW SYRINGE VERSION) IV PRN (22:35)
[2017-04-19] MEDS: Albuterol 2.5 MG/3 ML NEB.SOL* (0.083%) INH PRN ×2 (01:33→08:12)
[2017-04-19] MEDS: oxyCODONE/Acetamin 5/325 MG* TAB PO PRN (01:55)
[2017-04-19] MEDS ORDERED: Metoclopramide IV* 5 MG/ML 2 ML VIAL IV SLOW PU ONE (06:00)
[2017-04-19] MEDS ORDERED: Famotidine IV* 10 MG/ML 2 ML (20 mg) IV ONE (06:00)
[2017-04-19] MEDS: Levothyroxine TAB* 100 MCG TAB PO SCH (06:13)
[2017-04-19 06:46] LABS: Hematocrit 32 % (42-52); Hemoglobin 10.2 g/dl (14.0-18.0); Mean Corpuscular HGB Conc 32 g/dl (31-36); Mean Corpuscular Hemoglobin 27 pg (27-31); Mean Corpuscular Volume 85 fL (80-94); Mean Platelet Volume 7 um3 (7.4-10.4); Red Blood Count 3.82 10^6/ul (4.0-5.4); Red Cell Distribution Width 18 % (10.5-15); White Blood Count 15.9 10^3/ul (3.5-10.8)
[2017-04-19 06:50] LABS: Comments Flag Yes
[2017-04-19 06:52] LABS: Add Diff/Slide Review? Slide Review Added
[2017-04-19 07:00] LABS: BUN/Creatinine Ratio 52.6 (8-20); Potassium 3.9 mmol/L (3.5-5.0)
[2017-04-19 07:01] LABS: Calcium 9.3 mg/dL (8.6-10.3); EGFR African American 62.2 (>60); EGFR Non-African American 48.4 (>60)
[2017-04-19] MEDS: Insulin LISPRO* 1 UNITS UNIT SUBCUT SCH ×4 (08:19→22:16)
[2017-04-19] MEDS: Insulin ISOPH/REG 70/30 (*) 1 UNITS UNIT SUBCUT SCH ×2 (08:36→17:18)
[2017-04-19] MEDS: Polyethylene Glycol 3350* 17 GM PACKET PO SCH (09:25)
[2017-04-19] MEDS: Docusate CAP* 100 MG PO SCH ×2 (09:37→20:39)
[2017-04-19] MEDS: oxyCODONE TAB* 5 MG TAB PO PRN ×3 (09:37→20:40)
[2017-04-19] MEDS: Atorvastatin* 40 MG TAB PO SCH (09:38)
[2017-04-19] MEDS: Metolazone TAB* 5 MG PO SCH (09:38)
[2017-04-19] MEDS: Metoprolol Tartrate TAB* 25 MG PO SCH ×2 (09:38→20:40)
[2017-04-19] MEDS: Allopurinol TAB* 300 MG PO SCH ×2 (09:50→20:39)
[2017-04-19] MEDS: Torsemide TAB* 20 MG PO SCH ×2 (10:25→16:34)
[2017-04-19] MEDS: Spironolactone TAB* 25 MG PO SCH (10:25)
--- NOTE | 2017-04-19 10:28 | PN ---
Progress Note - Progress Note Date of Service: 04/19/17 SOAP: Subjective: CC: Left foot pain HPI: 51 year old man with sudden onset left foot pain and swelling, fluid collection on MRI, aspirated, growing MRSA which is also in blood. No fever, rash, or diarrhea. Left foot redness, swelling, pain a little better. Objective: [] Vital Signs Temp 37.1 C 04/19/17 08:13 Pulse 80 04/19/17 08:14 Resp 18 04/19/17 10:11 BP 132/59 04/19/17 08:13 Pulse Ox 99 04/19/17 08:14 Intake & Output 04/18/17 04/19/17 04/19/17 18:59 06:59 18:59 Intake Total 1530 2483 Output Total 2750 600 Balance -1220 1883 Intake: IV Fluids 30 418 NS (0.9%) 368 cefepime 30 50 IVPB 250 265 vancomycin 250 265 Oral 1250 1800 Output: Urine 2750 600 Other: Estimated Void Medium # Bowel Movements 1 0 Estimated Stool Amount Large Large # Voids 1 Gen:awake, no distress HEENT:PERRL, MMM Heart:RRR no murmur Lungs:CTA BL Abd:+BS NTND soft Skin: no rash MSK: L foot dorsum is edematous and warm, no crepitus Laboratory Results - last 24 hr 04/18/17 04/18/17 04/18/17 11:57 17:17 19:19 WBC RBC Hgb Hct MCV MCH MCHC RDW Plt Count MPV Neut % (Auto) Lymph % (Auto) [place] % (Auto) Eos % (Auto) Baso % (Auto) Absolute Neuts (auto) Absolute Lymphs (auto) Absolute Monos (auto) Absolute Eos (auto) Absolute Basos (auto) Absolute Nucleated RBC Nucleated RBC % INR (Anticoag Therapy) Sodium Potassium Chloride Carbon Dioxide Anion Gap BUN Creatinine Est GFR ( Amer) Est GFR (Non-Af Amer) BUN/Creatinine Ratio Glucose POC Glucose (mg/dL) 114 H 115 H 224 H Calcium 04/19/17 04/19/17 04/19/17 06:08 06:28 06:28 WBC 15.9 H RBC 3.82 L Hgb 10.2 L Hct 32 L MCV 85 MCH 27 MCHC 32 RDW 18 H Plt Count 469 H MPV 7 L Neut % (Auto) 82.1 Lymph % (Auto) 4.4 L [place] % (Auto) 7.2 Eos % (Auto) 5.3 Baso % (Auto) 1.0 Absolute Neuts (auto) 13.0 H Absolute Lymphs (auto) 0.7 L Absolute Monos (auto) 1.1 H Absolute Eos (auto) 0.8 H Absolute Basos (auto) 0.2 Absolute Nucleated RBC 0 Nucleated RBC % 0 INR (Anticoag Therapy) Sodium 130 L Potassium 3.9 Chloride 92 L Carbon Dioxide 32 Anion Gap 6 BUN 80 H Creatinine 1.52 H Est GFR ( Amer) 62.2 Est GFR (Non-Af Amer) 48.4 BUN/Creatinine Ratio 52.6 H Glucose 108 H POC Glucose (mg/dL) 123 H Calcium 9.3 04/19/17 04/19/17 06:28 08:24 WBC RBC Hgb Hct MCV MCH MCHC RDW Plt Count MPV Neut % (Auto) Lymph % (Auto) [place] % (Auto) Eos % (Auto) Baso % (Auto) Absolute Neuts (auto) Absolute Lymphs (auto) Absolute Monos (auto) Absolute Eos (auto) Absolute Basos (auto) Absolute Nucleated RBC Nucleated RBC % INR (Anticoag Therapy) 1.44 H Sodium Potassium Chloride Carbon Dioxide Anion Gap BUN Creatinine Est GFR ( Amer) Est GFR (Non-Af Amer) BUN/Creatinine Ratio Glucose POC Glucose (mg/dL) 130 H Calcium Assessment: 1. MRSA bacteremia, cleared; no stigmata of IE and low grade bacteremia, doubt endocarditis 2. MRSA abscess left foot 3. morbid obesity Plan: 1. continue vancomycin goal tr 15-20; I&D foot pending; final duration IV abx pending operative findings but minimum 2 weeks.
[2017-04-19] MEDS ORDERED: Vancomycin Trough Check NOTE FOLLOW UP ONE (11:00)
--- NOTE | 2017-04-19 11:48 | PN ---
Subjective Date of Service: 04/19/17 Interval History: Patient seen and examined. No acute overnight events. States foot pain controlled with meds. Denies fever or chills, no n/v, no acute SOB, denies chest pain. Waiting for I&D procedure later today. Family History: Unchanged from Admission Social History: Unchanged from Admission Past Medical History: Unchanged from Admission Objective Active Medications: Acetaminophen (Tylenol Tab*) 650 mg PO Q4H PRN PRN Reason: FEVER/PAIN Last Admin: 04/15/17 18:57 Dose: 650 mg Al Hydrox/Mg Hydrox/Simethicone (Maalox Plus*) 30 ml PO Q6H PRN PRN Reason: INDIGESTION Albuterol (Ventolin Hfa Inhaler*) 2 puff INH Q4HR PRN PRN Reason: SHORTNESS OF BREATH Albuterol (Ventolin 2.5 Mg/3 Ml Neb.Christy*) 2.5 mg INH Q4H PRN PRN Reason: SHORTNESS OF BREATH Last Admin: 04/19/17 08:12 Dose: 2.5 mg Allopurinol (Zyloprim Tab*) 300 mg PO BID [facility] Last Admin: 04/19/17 09:50 Dose: 300 mg Atorvastatin Calcium (Lipitor*) 40 mg PO DAILY [facility] Last Admin: 04/19/17 09:38 Dose: 40 mg Dextrose (D50w Syringe 50 Ml*) 12.5 gm IV PUSH .FOR FS < 60 - SS PRN PRN Reason: FS < 60 Docusate Sodium (Colace Cap*) 100 mg PO BID [facility] Last Admin: 04/19/17 09:37 Dose: 100 mg Fluticasone Propionate (Flonase Nasal [place] 50mcg*) 2 spray BOTH NARES DAILY PRN PRN Reason: Allergy Symptoms Vancomycin HCl 750 mg/ Sodium (Chloride) 250 mls @ 166.667 mls/hr IVPB Q12H [facility] Last Admin: 04/18/17 23:38 Dose: 166.667 mls/hr Lactated Ringer's (Lactated Ringers 1000 Ml Bag*) 1,000 mls @ 125 mls/hr IV PER RATE [facility] Last Admin: 04/19/17 09:43 Dose: 125 mls/hr Insulin Human Isoph/Insulin Regular (Humulin 70/30 (*)) 50 units SUBCUT 0800, 1700 [facility] Last Admin: 04/19/17 08:36 Dose: Not Given Insulin Human Lispro (Humalog*) 0 units SUBCUT ACHS [facility] PRN Reason: Protocol Last Admin: 04/19/17 08:19 Dose: Not Given Levothyroxine Sodium (Synthroid Tab*) 200 mcg PO DAILY@0600 [facility] Last Admin: 04/19/17 06:13 Dose: 200 mcg Metolazone (Zaroxolyn Tab*) 5 mg PO DAILY [facility] Last Admin: 04/19/17 09:38 Dose: 5 mg Metoprolol Tartrate (Lopressor Tab*) 25 mg PO BID [facility] Last Admin: 04/19/17 09:38 Dose: 25 mg Morphine Sulfate (Morphine Inj (Syringe)*) 2 mg IV Q4H PRN PRN Reason: PAIN Last Admin: 04/18/17 22:35 Dose: 2 mg Oxycodone HCl (Roxycodone Tab*) 10 mg PO Q4H PRN PRN Reason: PAIN Last Admin: 04/19/17 09:37 Dose: 10 mg Oxycodone/Acetaminophen (Percocet 5/325 Tab*) 1 tab PO Q4H PRN PRN Reason: Pain Last Admin: 04/19/17 01:55 Dose: 1 tab Pharmacy Consult (Vancomycin Per Pharmacy*) 1 note FOLLOW UP . PRN PRN Reason: PER PROTOCOL Polyethylene Glycol/Electrolytes (Miralax*) 17 gm PO DAILY [facility] Last Admin: 04/19/17 09:25 Dose: Not Given Senna (Senokot Tab*) 2 tab PO BEDTIME [facility] Last Admin: 04/18/17 20:35 Dose: 2 tab Spironolactone (Aldactone Tab*) 50 mg PO DAILY [facility] Last Admin: 04/19/17 10:25 Dose: 50 mg Torsemide (Demadex*) 40 mg PO 0900,1600 [facility] Last Admin: 04/19/17 10:25 Dose: 40 mg Vital Signs - 8 hr 04/19/17 04/19/17 04/19/17 03:48 04:44 08:13 Temperature 97.4 F 98.7 F Pulse Rate 80 83 Respiratory 18 16 18 Rate Blood Pressure 94/50 132/59 (mmHg) O2 Sat by Pulse 97 97 Oximetry 12/14/17 12/14/17 12/14/17 08:14 09:37 10:11 Temperature Pulse Rate 80 Respiratory 18 18 18 Rate Blood Pressure (mmHg) O2 Sat by Pulse 99 Oximetry Oxygen Devices in Use Now: Nasal Cannula Appearance: Alert, NAD Eyes: No Scleral Icterus, PERRLA Ears/Nose/Mouth/Throat: NL Teeth, Lips, Gums, Mucous Membranes Moist Neck: Trachea Midline Respiratory: Symmetrical Chest Expansion and Respiratory Effort, Clear to Auscultation Cardiovascular: NL Sounds; No Murmurs; No JVD Abdominal: NL Sounds; No Tenderness; No Distention Extremities: - - Mottled LE bilaterally with erythema and Neurological: Alert and Oriented x 3 Nutrition: - - NPO for procedure Result Diagrams: 04/19/17 06:28 04/19/17 06:28 Additional Lab and Data: . Microbiology and Other Data: . Microbiology 04/17/17 13:30 Gram Stain - Final Misc Fluid (See Comment) - Ankle Left Body Fluid Culture - Preliminary MRSA Skin and Soft Tissue MRSA/MSSA (PCR - Final Mrsa Positive S.aureus Positive 04/15/17 07:46 Aerobic Blood Culture - Preliminary Blood Venous No Growth Day 4 Anaerobic Blood Culture - Final MRSA 04/15/17 07:46 Aerobic Blood Culture - Final Blood Venous MRSA Anaerobic Blood Culture - Preliminary No Growth Day 4 Blood MRSA/MSSA (PCR) - Final Mrsa Positive S.aureus Positive 04/18/17 06:26 Aerobic Blood Culture - Preliminary Blood Venous No Growth Day 1 Anaerobic Blood Culture - Preliminary No Growth Day 1 04/18/17 06:26 Aerobic Blood Culture - Preliminary Blood Venous No Growth Day 1 Anaerobic Blood Culture - Preliminary No Growth Day 1 Assess/Plan/Problems-Billing This is a 51 year old male with PMHx of morbid obesity and DM presenting with sepsis 2/2 MRSA cellulitis/infection of LLE foot wound, being managed on antibiotics and requiring I&D of left foot. - Patient Problems (1) Septicemia Code(s): A41.9 - SEPSIS, UNSPECIFIED ORGANISM SNOMED Code(s): 906149190 Comment: - 2/2 MRSA of wound - Sepsis now resolved - Continue IV vanco as per ID - Follow blood cultures - Does not appear to have endocarditis, but would need YESENIA due to patient's body habitus if there were further concern (2) Atrial fibrillation Code(s): I48.91 - UNSPECIFIED ATRIAL FIBRILLATION SNOMED Code(s): 77341998 Comment: - Continue metoprolol - Research if patient is still on AC, was on coumadin last month? Will discuss with pt. after he comes back from procedure. (3) Cellulitis and abscess of leg Code(s): L02.419 - CUTANEOUS ABSCESS OF LIMB, UNSPECIFIED; L03.119 - CELLULITIS OF UNSPECIFIED PART OF LIMB SNOMED Code(s): 649423030 Comment: - Rosaen following - Continue vanco - Follow cultures - For I&D today - Pain control - IVF while NPO (4) Chronic respiratory failure Code(s): J96.10 - CHRONIC RESPIRATORY FAILURE, UNSP W HYPOXIA OR HYPERCAPNIA SNOMED Code(s): 27773759 Comment: - 2/2 Obesity, COPD and Hypoventilation syndrome - Respiratory stable - Continue O@ at 5LNC - Continue albuterol and fluticasone (5) Morbid obesity Code(s): E66.01 - MORBID (SEVERE) OBESITY DUE TO EXCESS CALORIES SNOMED Code(s ): 714031151 Comment: - BMI 60.8 (6) CKD (chronic kidney disease) stage 3, GFR 30-59 ml/min Code(s): N18.3 - CHRONIC KIDNEY DISEASE, STAGE 3 (MODERATE) SNOMED Code(s): 314136287 Comment: - Creatinine at baseline - Continue IVF while NPO (7) Diastolic CHF, chronic Code(s): I50.32 - CHRONIC DIASTOLIC (CONGESTIVE) HEART FAILURE SNOMED Code(s) : 754233916 Comment: - 2/2 hx of cardiomyopathy? - Continue metolazone, torsemide, spironolactone, BB - Daily weights - No acute exac noted (8) Diabetes mellitus Code(s): E11.9 - TYPE 2 DIABETES MELLITUS WITHOUT COMPLICATIONS SNOMED Code(s) : 97964349 Comment: - Continue carb control diet - Accuchecks AC and HS - Insulin SS for coverage; with 70/30 daily Status and Disposition: Remain inpatient for resolving sepsis 2/2 LE cellulitis and non-healing MRSA wound. Plan for I&D today. ID managing IV atbx therapy. Counseling and/or Coordination of Care Minutes: Coordinated with patient and staff. Time spent >60 mins
[2017-04-19] MEDS ORDERED: NS 0.9% 1000 ML* 1,000 ML IV SCH (12:00)
[2017-04-19] MEDS ORDERED: Metoclopramide IV* 5 MG/ML 2 ML VIAL ONE (13:24)
[2017-04-19] MEDS ORDERED: Famotidine IV* 10 MG/ML 2 ML (20 mg) ONE (13:24)
[2017-04-19] MEDS: Vancomycin(*) 750 MG in NS 0.9% 250 ML* 250 ML IVPB SCH (14:02)
[2017-04-19] MEDS ORDERED: Acetaminophen TAB* 325 MG PO PRN (14:04)
[2017-04-19] MEDS ORDERED: PROCHLORPERAZINE INJ 5 MG/ML 2 ML VIAL IV PRN (14:04)
[2017-04-19] MEDS ORDERED: HYDROcodone/ACETAMIN 5-325 MG* 1 TAB PO PRN (14:04)
[2017-04-19] MEDS ORDERED: oxyCODONE TAB* 5 MG TAB PO PRN (14:04)
[2017-04-19] MEDS ORDERED: Ondansetron INJ* 2 MG/ML VIAL IV PRN (14:04)
[2017-04-19] MEDS ORDERED: fentaNYL* 50 MCG/ML 2 ML VIAL (100 MCG VIAL) IV PRN (14:04)
[2017-04-19] MEDS ORDERED: fentaNYL* 50 MCG/ML 2 ML VIAL (100 MCG VIAL) ONE ×2 (14:14→14:19)
[2017-04-19] MEDS ORDERED: Midazolam* 1 MG/ML 2 ML VIAL (2 MG) ONE ×3 (14:14→14:34)
[2017-04-19] MEDS ORDERED: Bupivacaine 0.25% SDV* 30 ML ONE (14:26)
[2017-04-19] MEDS ORDERED: Bupivacaine 0.5% SDV PF* 30 ML VIAL ONE (14:27)
[2017-04-19] MEDS ORDERED: KETAMINE HCL* 50 MG/ML 10 ML VIAL ONE (14:32)
[2017-04-19] MEDS ORDERED: Metoprolol Tartrate IV* 1 MG/ML 5 ML VIAL ONE (14:41)
[2017-04-19] MEDS ORDERED: oxyCODONE TAB* 5 MG TAB ONE (15:15)
[2017-04-19] MEDS: Vancomycin(*) 500 MG in NS 0.9% 250 ML* 250 ML IVPB SCH (15:25)
[2017-04-19] MEDS: Morphine INJ* 2 MG/ML 1 ML SYRINGE (TWO MG - NEW SYRINGE VERSION) IV PRN (17:17)
[2017-04-19] MEDS: Senna TAB PO SCH (20:42)
[2017-04-20] MEDS: Albuterol 2.5 MG/3 ML NEB.SOL* (0.083%) INH PRN ×4 (00:18→22:55)
[2017-04-20] MEDS: Morphine INJ* 2 MG/ML 1 ML SYRINGE (TWO MG - NEW SYRINGE VERSION) IV PRN (00:40)
--- NOTE | 2017-04-20 02:01 | OP ---
DATE OF OPERATION: 04/19/17 - ROOM #412 DATE OF : 63 SURGEON: Jose Mckee MD PBX TEACHER: RAI Sterling ANESTHESIOLOGIST: Joan Hubbard MD ANESTHESIA: MAC. PRE-OP DIAGNOSES: Left ankle and foot deep infection. POST-OP DIAGNOSES: Left ankle and foot deep infection. OPERATIVE PROCEDURE: 1. Left ankle arthrotomy, exploration and drainage. 2. Irrigation and debridement of deep ankle abscesses/hematomas. IMPLANTS: None. TOURNIQUET TIME: Less than 30 minutes with an ankle Esmarch tourniquet. SPECIMENS: Deep culture swabs sent to microbiology. ESTIMATED BLOOD LOSS: Minimal. COMPLICATIONS: None. STATUS: Stable from the operating room to the recovery room and then back to the hospital floor. INDICATIONS FOR PROCEDURE: Bautista is a man that I have known as I did a right second toe amputation in the past. He was admitted to the hospitalist service of the left foot pain and swelling. He was found to have Charcot arthropathy, but he did have some fluid collections on MRI. Aspiration of the fluid collections revealed MRSA, so we discussed performing an irrigation debridement and an arthrotomy to decompress the infection. We did discuss nonoperative treatment as well. After our discussion, he decided that he would like to move forward with the surgery. We did discuss the nature and risks of surgery at length both on the hospital floor and in the preoperative holding unit. DESCRIPTION OF PROCEDURE: The patient was seen in the preoperative holding unit and informed and written consent was obtained. The appropriate extremity was marked. The patient was then brought to the operating room and carefully positioned on the operating room table. Anesthesia was induced. All bony prominences were padded with great care. A chlorhexidine based pre-scrub was performed followed by a standard prep and drape with Betadine. A surgical safety pause was then conducted in which we confirmed the appropriate patient, extremity, planned procedure, availability of equipment, continuation of his antibiotics and DVT prophylaxis in the form of a compression boot on the nonsurgical extremity. We began with exsanguination of the leg via elevation and application of an ankle Esmarch tourniquet. Approximately, a 5 cm incision was made over the anterior medial ankle joint in a longitudinal fashion. I carefully dissected down to the level of the ankle joint and incised into the ankle joint. Additionally, I dissected both medially and laterally to get to the deep, subfascial abscesses that were seen on the preoperative MRI. I used Metzenbaum scissors to dissect to the level. There was some purulent looking hematoma expressed and deep culture swabs were sent from this. At this point, the wound , undermined areas and ankle joint were copiously irrigated with 9 L of normal saline. I used curette and sharp scalpel dissection to remove any devitalized appearing tissue and undermined again both medially and laterally. After the copious irrigation, all of the remaining tissues were deemed viable and there was no more hematoma or purulent fluid appreciated. At this time, I tunneled a [place] drain up the medial hindfoot and the wound was closed in a layered fashion utilizing 3-0 Monocryl and 3-0 nylon. The Esmarch tourniquet was released and the foot was warmed and well perfused. A dry sterile dressing was applied. The patient was awakened from anesthesia and transferred to the recovery room in stable condition. Complications, none. Needle and sponge counts were correct at the end of the case. ATTESTATION: I attest that I was present, scrubbed and performed the entire procedure myself. POSTOPERATIVE PLAN: Bautista will remain nonweightbearing on the left lower extremity for the Charcot arthropathy. We will plan on pulling the drain in a couple of days. He will continue on the IV antibiotics per infectious disease service. [id number]/[facility] #: [id number] MTDD
[2017-04-20] MEDS: Vancomycin(*) 500 MG in NS 0.9% 250 ML* 250 ML IVPB SCH ×2 (02:30→13:46)
[2017-04-20] MEDS: oxyCODONE TAB* 5 MG TAB PO PRN ×3 (04:10→17:51)
[2017-04-20] MEDS: Levothyroxine TAB* 100 MCG TAB PO SCH (06:18)
[2017-04-20] MEDS: Insulin LISPRO* 1 UNITS UNIT SUBCUT SCH ×4 (09:07→22:46)
[2017-04-20] MEDS: Insulin ISOPH/REG 70/30 (*) 1 UNITS UNIT SUBCUT SCH ×2 (09:07→17:52)
[2017-04-20] MEDS: Polyethylene Glycol 3350* 17 GM PACKET PO SCH (09:08)
[2017-04-20] MEDS: Allopurinol TAB* 300 MG PO SCH ×2 (09:09→20:43)
[2017-04-20] MEDS: Docusate CAP* 100 MG PO SCH ×2 (09:10→20:53)
[2017-04-20] MEDS: Torsemide TAB* 20 MG PO SCH ×2 (09:10→17:51)
[2017-04-20] MEDS: Spironolactone TAB* 25 MG PO SCH (09:10)
[2017-04-20] MEDS: Atorvastatin* 40 MG TAB PO SCH (09:10)
[2017-04-20] MEDS: Metolazone TAB* 5 MG PO SCH (09:10)
[2017-04-20] MEDS: Metoprolol Tartrate TAB* 25 MG PO SCH ×2 (09:10→20:44)
--- NOTE | 2017-04-20 11:54 | PN ---
Progress Note - Progress Note Date of Service: 04/20/17 SOAP: Subjective: 51 y.o male s/p I&D of L foot by DR. Mckee 04/19/2017. Patient reports pain at top of foot, concerned about how foot looked in OR> VSS afebrile overnight. Objective: General- Well appearing, resting in bed, obese. MSK- Surgical dressing intact, no drainage, odor noted. decreased sensation over b/l toes, full ROM toes b/l. difficult to assess cap refill due to nail thickness, toes warm, pink. Vital Signs Temp 98.6 F 04/20/17 04:13 Pulse 79 04/20/17 06:59 Resp 18 04/20/17 10:56 BP 130/69 04/20/17 04:13 Pulse Ox 98 04/20/17 10:56 Intake & Output 04/19/17 04/20/17 04/20/17 18:59 06:59 18:59 Intake Total 1230 3363 Output Total 1600 3125 950 Balance -370 238 -950 Intake: IV Fluids 750 623 LR 750 603 NS (0.9%) 20 IVPB 260 vancomycin 260 Oral 480 2480 Output: Urine 1600 3125 950 Other: # Bowel Movements 0 0 Estimated Stool Amount Large # Voids 4 2 Assessment: 51 y.o male s/p I&D of L foot by DR. Mckee 04/19/2017. Plan: - APpreciate ID recs- plan for at least 2 weeks vanco, awaiting cultures. - PT/ OT- nonweightbearing L LE - Kristofer drain to be removed in few days, dressing change possibly sunday. - Appreciate hospitalist input. Active Medications Generic Name Dose Route Start Last Admin Trade Name Freq PRN Reason Stop Dose Admin Acetaminophen 650 mg 04/15/17 10:12 04/15/17 18:57 Tylenol Tab* PO 650 mg Q4H PRN Administration FEVER/PAIN Al Hydrox/Mg Hydrox/Simethicone 30 ml 04/15/17 10:12 Maalox Plus* PO Q6H PRN INDIGESTION Albuterol 2 puff 04/15/17 10:13 Ventolin Hfa Inhaler* INH Q4HR PRN SHORTNESS OF BREATH Albuterol 2.5 mg 04/15/17 10:13 04/20/17 06:55 Ventolin 2.5 Mg/3 Ml Neb.Christy* INH 2.5 mg Q4H PRN Administration SHORTNESS OF BREATH Allopurinol 300 mg 04/15/17 21:00 04/20/17 09:09 Zyloprim Tab* PO 300 mg BID G[facility]LLA Administration Atorvastatin Calcium 40 mg 04/16/17 09:00 04/20/17 09:10 Lipitor* PO 40 mg DAILY [facility]LLA Administration Dextrose 12.5 gm 04/15/17 09:35 D50w Syringe 50 Ml* IV PUSH .FOR FS < 60 - SS PRN FS < 60 Docusate Sodium 100 mg 04/15/17 21:00 04/20/17 09:10 Colace Cap* PO 100 mg BID GISELLA Administration Fluticasone Propionate 2 spray 04/15/17 10:13 Flonase Nasal [place] 50mcg* BOTH NARES DAILY PRN Allergy Symptoms Vancomycin HCl 500 mg/ Sodium 250 mls @ 166.667 mls/hr 04/19/17 14:00 02:30 Chloride IVPB 166.667 mls/hr Q12H [facility] Administration Lactated Ringer's 1,000 mls @ 75 mls/hr 04/19/17 18:23 04/19/17 21:46 Lactated Ringers 1000 Ml Bag* IV 75 mls/hr PER RATE G[facility]LLA Administration Insulin Human Isoph/Insulin Regular 50 units 04/16/17 17:00 04/20/17 09:07 Humulin 70/30 (*) SUBCUT 50 units 0800,1700 G[facility]LLA Administration Insulin Human Lispro 0 units 04/15/17 11:30 04/20/17 09:07 Humalog* SUBCUT 4 units ACHS GISELLA Administration Protocol Levothyroxine Sodium 200 mcg 04/16/17 06:00 04/20/17 06:18 Synthroid Tab* PO 200 mcg DAILY@0600 [facility] Administration Metolazone 5 mg 04/16/17 09:00 04/20/17 09:10 Zaroxolyn Tab* PO 5 mg DAILY [facility] Administration Metoprolol Tartrate 25 mg 04/15/17 21:00 04/20/17 09:10 Lopressor Tab* PO 25 mg BID [facility] Administration Morphine Sulfate 2 mg 04/15/17 10:12 04/20/17 00:40 Morphine Inj (Syringe)* IV 2 mg Q4H PRN Administration PAIN Oxycodone HCl 10 mg 04/15/17 10:13 04/20/17 09:17 Roxycodone Tab* PO 10 mg Q4H PRN Administration PAIN Oxycodone/Acetaminophen 1 tab 04/15/17 10:12 04/19/17 01:55 Percocet 5/325 Tab* PO 1 tab Q4H PRN Administration Pain Pharmacy Consult 1 note 04/17/17 17:22 Vancomycin Per Pharmacy* FOLLOW UP . PRN PER PROTOCOL Pharmacy Profile Note 1 note 04/21/17 13:30 Vancomycin Trough Check FOLLOW UP 04/21/17 13:31 ONCE ONE Polyethylene Glycol/Electrolytes 17 gm 04/17/17 09:00 04/20/17 09:08 Miralax* PO 17 gm DAILY [facility] Administration Senna 2 tab 04/17/17 21:00 04/19/17 20:42 Senokot Tab* PO Not Given BEDTIME [facility] Spironolactone 50 mg 04/16/17 09:00 04/20/17 09:10 Aldactone Tab* PO 50 mg DAILY [facility] Administration Torsemide 40 mg 04/18/17 16:00 04/20/17 09:10 Demadex* PO 40 mg 0900,1600 [facility] Administration Laboratory Results - last 24 hr 04/19/17 04/19/17 04/19/17 11:58 12:06 12:59 POC Glucose (mg/dL) 135 H 135 H Vancomycin Trough 17.6 04/19/17 04/19/17 04/20/17 16:37 21:47 07:36 POC Glucose (mg/dL) 138 H 346 H 205 H Vancomycin Trough
--- NOTE | 2017-04-20 12:56 | PN ---
Subjective Date of Service: 04/20/17 Interval History: Patient seen and examined. No acute overnight events. States post-operative left foot/ankle pain tolerable. Remains NWB which was reinforced with patient and family. Denies chest pain, states no SOB/breathing is stable. No n/v, tolerating PO, no urinary complaints. Family History: Unchanged from Admission Social History: Unchanged from Admission Past Medical History: Unchanged from Admission Objective Active Medications: Acetaminophen (Tylenol Tab*) 650 mg PO Q4H PRN PRN Reason: FEVER/PAIN Last Admin: 04/15/17 18:57 Dose: 650 mg Al Hydrox/Mg Hydrox/Simethicone (Maalox Plus*) 30 ml PO Q6H PRN PRN Reason: INDIGESTION Albuterol (Ventolin Hfa Inhaler*) 2 puff INH Q4HR PRN PRN Reason: SHORTNESS OF BREATH Albuterol (Ventolin 2.5 Mg/3 Ml Neb.Christy*) 2.5 mg INH Q4H PRN PRN Reason: SHORTNESS OF BREATH Last Admin: 04/20/17 06:55 Dose: 2.5 mg Allopurinol (Zyloprim Tab*) 300 mg PO BID [facility] Last Admin: 04/20/17 09:09 Dose: 300 mg Atorvastatin Calcium (Lipitor*) 40 mg PO DAILY [facility] Last Admin: 04/20/17 09:10 Dose: 40 mg Dextrose (D50w Syringe 50 Ml*) 12.5 gm IV PUSH .FOR FS < 60 - SS PRN PRN Reason: FS < 60 Docusate Sodium (Colace Cap*) 100 mg PO BID [facility] Last Admin: 04/20/17 09:10 Dose: 100 mg Fluticasone Propionate (Flonase Nasal [place] 50mcg*) 2 spray BOTH NARES DAILY PRN PRN Reason: Allergy Symptoms Vancomycin HCl 500 mg/ Sodium (Chloride) 250 mls @ 166.667 mls/hr IVPB Q12H [facility] Last Admin: 04/20/17 02:30 Dose: 166.667 mls/hr Insulin Human Isoph/Insulin Regular (Humulin 70/30 (*)) 50 units SUBCUT 0800, 1700 [facility] Last Admin: 04/20/17 09:07 Dose: 50 units Insulin Human Lispro (Humalog*) 0 units SUBCUT ACHS [facility] PRN Reason: Protocol Last Admin: 04/20/17 09:07 Dose: 4 units Levothyroxine Sodium (Synthroid Tab*) 200 mcg PO DAILY@0600 [facility] Last Admin: 04/20/17 06:18 Dose: 200 mcg Metolazone (Zaroxolyn Tab*) 5 mg PO DAILY [facility] Last Admin: 04/20/17 09:10 Dose: 5 mg Metoprolol Tartrate (Lopressor Tab*) 25 mg PO BID [facility] Last Admin: 04/20/17 09:10 Dose: 25 mg Morphine Sulfate (Morphine Inj (Syringe)*) 2 mg IV Q4H PRN PRN Reason: PAIN Last Admin: 04/20/17 00:40 Dose: 2 mg Oxycodone HCl (Roxycodone Tab*) 10 mg PO Q4H PRN PRN Reason: PAIN Last Admin: 04/20/17 09:17 Dose: 10 mg Oxycodone/Acetaminophen (Percocet 5/325 Tab*) 1 tab PO Q4H PRN PRN Reason: Pain Last Admin: 04/19/17 01:55 Dose: 1 tab Pharmacy Consult (Vancomycin Per Pharmacy*) 1 note FOLLOW UP . PRN PRN Reason: PER PROTOCOL Pharmacy Profile Note (Vancomycin Trough Check) 1 note FOLLOW UP ONCE ONE Stop: 04/21/17 13:31 Polyethylene Glycol/Electrolytes (Miralax*) 17 gm PO DAILY [facility] Last Admin: 04/20/17 09:08 Dose: 17 gm Senna (Senokot Tab*) 2 tab PO BEDTIME [facility] Last Admin: 04/19/17 20:42 Dose: Not Given Spironolactone (Aldactone Tab*) 50 mg PO DAILY [facility] Last Admin: 04/20/17 09:10 Dose: 50 mg Torsemide (Demadex*) 40 mg PO 0900,1600 [facility] Last Admin: 04/20/17 09:10 Dose: 40 mg Vital Signs - 8 hr 04/20/17 04/20/17 04/20/17 06:52 06:59 09:17 Temperature Pulse Rate 79 Respiratory 17 15 18 Rate Blood Pressure (mmHg) O2 Sat by Pulse 97 Oximetry 04/20/17 04/20/17 04/20/17 10:56 11:59 12:12 Temperature 98.8 F Pulse Rate 76 Respiratory 18 16 18 Rate Blood Pressure 133/72 (mmHg) O2 Sat by Pulse 98 98 Oximetry Oxygen Devices in Use Now: Nasal Cannula - 4LPM Appearance: Alert, NAD Eyes: No Scleral Icterus, PERRLA Ears/Nose/Mouth/Throat: NL Teeth, Lips, Gums, Mucous Membranes Moist Neck: NL Appearance and Movements; NL JVP, Trachea Midline Respiratory: Symmetrical Chest Expansion and Respiratory Effort - Diminished expiration, clear Cardiovascular: NL Sounds; No Murmurs; No JVD Abdominal: NL Sounds; No Tenderness; No Distention - obese Extremities: - - mottled LE, JOSEPHINE wrap intact LLE with cori drain in place, CDI Neurological: Alert and Oriented x 3 Nutrition: Taking PO's Result Diagrams: 04/19/17 06:28 04/19/17 06:28 Additional Lab and Data: . Microbiology and Other Data: . Microbiology 04/17/17 13:30 Gram Stain - Final Misc Fluid (See Comment) - Ankle Left Body Fluid Culture - Preliminary MRSA Skin and Soft Tissue MRSA/MSSA (PCR - Final Mrsa Positive S.aureus Positive 04/15/17 07:46 Aerobic Blood Culture - Preliminary Blood Venous No Growth Day 4 Anaerobic Blood Culture - Final MRSA 04/15/17 07:46 Aerobic Blood Culture - Final Blood Venous MRSA Anaerobic Blood Culture - Preliminary No Growth Day 4 Blood MRSA/MSSA (PCR) - Final Mrsa Positive S.aureus Positive 04/18/17 06:26 Aerobic Blood Culture - Preliminary Blood Venous No Growth Day 1 Anaerobic Blood Culture - Preliminary No Growth Day 1 04/18/17 06:26 Aerobic Blood Culture - Preliminary Blood Venous No Growth Day 1 Anaerobic Blood Culture - Preliminary No Growth Day 1 Assess/Plan/Problems-Billing This is a 51 year old male with PMHx of morbid obesity and DM presenting with sepsis 2/2 MRSA cellulitis/infection of LLE foot wound, being managed on antibiotics and requiring I&D of left foot/ankle, POD1. - Patient Problems (1) Septicemia Code(s): A41.9 - SEPSIS, UNSPECIFIED ORGANISM SNOMED Code(s): 205797741 Comment: - 2/2 MRSA of wound - Sepsis now resolved - Continue IV vanco as per ID - Follow blood and deep wound cultures - Does not appear to have endocarditis, but would need YESENIA due to patient's body habitus if there were further concern (2) Atrial fibrillation Code(s): I48.91 - UNSPECIFIED ATRIAL FIBRILLATION SNOMED Code(s): 35215081 Comment: - Continue metoprolol - Restart AC if/when clear by surgery (3) Cellulitis and abscess of leg Code(s): L02.419 - CUTANEOUS ABSCESS OF LIMB, UNSPECIFIED; L03.119 - CELLULITIS OF UNSPECIFIED PART OF LIMB SNOMED Code(s): 754487139 Comment: - S/P I&D left foot/ankle, POD1 - Dr. Fierro following - Continue vanco for now - Follow blood and wound cx - Pain control per surgery - DC IVF (4) Chronic respiratory failure Code(s): J96.10 - CHRONIC RESPIRATORY FAILURE, UNSP W HYPOXIA OR HYPERCAPNIA SNOMED Code(s): 82342504 Comment: - 2/2 Obesity, COPD and Hypoventilation syndrome - Respiratory stable - Continue O@ at 4LNC - Continue albuterol and fluticasone (5) Morbid obesity Code(s): E66.01 - MORBID (SEVERE) OBESITY DUE TO EXCESS CALORIES SNOMED Code(s ): 906352809 Comment: - BMI 60.8 (6) CKD (chronic kidney disease) stage 3, GFR 30-59 ml/min Code(s): N18.3 - CHRONIC KIDNEY DISEASE, STAGE 3 (MODERATE) SNOMED Code(s): 167004408 Comment: - Creatinine at baseline (7) Diastolic CHF, chronic Code(s): I50.32 - CHRONIC DIASTOLIC (CONGESTIVE) HEART FAILURE SNOMED Code(s) : 929559522 Comment: - 2/2 hx of cardiomyopathy? - Continue metolazone, torsemide, spironolactone, BB - Daily weights - No acute exac noted, fluids DC'd now that patient is no longer NPO (8) Diabetes mellitus Code(s): E11.9 - TYPE 2 DIABETES MELLITUS WITHOUT COMPLICATIONS SNOMED Code(s) : 11660953 Comment: - Continue carb control diet - Accuchecks AC and HS - Insulin SS for coverage; with 70/30 daily Status and Disposition: Remain inpatient for resolving sepsis 2/2 LE cellulitis and non-healing MRSA wound. s/p surgical I&D. ID managing IV atbx therapy. will need longer term atbx and rehab at discharge. Remains NWB on affected side as per ortho/surgery. Counseling and/or Coordination of Care Minutes: Coordinated with patient and staff. Time spent >45mins
[2017-04-20] MEDS ORDERED: Diltiazem IV* 5 MG/ML 5 ML VIAL (for loading dose/IV Push) (25 MG) IV SLOW PU ONE (17:09)
[2017-04-20] MEDS: Diltiazem CD CAP* 180 MG PO SCH (17:51)
[2017-04-20] MEDS: Senna TAB PO SCH (20:43)
[2017-04-21] MEDS: Vancomycin(*) 500 MG in NS 0.9% 250 ML* 250 ML IVPB SCH ×2 (02:07→14:50)
[2017-04-21] MEDS: Morphine INJ* 2 MG/ML 1 ML SYRINGE (TWO MG - NEW SYRINGE VERSION) IV PRN ×4 (02:07→19:30)
[2017-04-21] MEDS: Levothyroxine TAB* 100 MCG TAB PO SCH (05:09)
[2017-04-21] MEDS: Albuterol 2.5 MG/3 ML NEB.SOL* (0.083%) INH PRN ×3 (08:04→17:47)
[2017-04-21] MEDS: Polyethylene Glycol 3350* 17 GM PACKET PO SCH (09:20)
[2017-04-21] MEDS: Metoprolol Tartrate TAB* 25 MG PO SCH ×2 (09:21→21:18)
[2017-04-21] MEDS: Allopurinol TAB* 300 MG PO SCH ×2 (09:21→21:19)
[2017-04-21] MEDS: Atorvastatin* 40 MG TAB PO SCH (09:21)
[2017-04-21] MEDS: Spironolactone TAB* 25 MG PO SCH (09:21)
[2017-04-21] MEDS: Docusate CAP* 100 MG PO SCH ×2 (09:21→21:19)
[2017-04-21] MEDS: Torsemide TAB* 20 MG PO SCH ×2 (09:21→14:50)
[2017-04-21] MEDS: Metolazone TAB* 5 MG PO SCH (09:21)
[2017-04-21] MEDS: Diltiazem CD CAP* 180 MG PO SCH (09:22)
[2017-04-21] MEDS: Insulin LISPRO* 1 UNITS UNIT SUBCUT SCH ×4 (09:22→21:18)
[2017-04-21] MEDS: Insulin ISOPH/REG 70/30 (*) 1 UNITS UNIT SUBCUT SCH ×2 (09:22→17:33)
--- NOTE | 2017-04-21 10:21 | PN ---
Progress Note - Progress Note Date of Service: 04/21/17 SOAP: Subjective: no complaints. foot feels fine [] Objective: Temp Pulse Resp BP Pulse Ox 98.1 F 72 22 137/59 97 04/21/17 07:39 04/21/17 08:06 04/21/17 09:10 04/21/17 07:39 04/21/17 08:06 LLE: improved eyrthema and edema about the foot. Drain still with some drainage so left in. Incision looks good. [] Assessment:Doing well POD2 left foot and ankle I&D [] Plan: NWB LLE ABx per ID []
[2017-04-21] MEDS: oxyCODONE TAB* 5 MG TAB PO PRN ×3 (10:30→22:45)
[2017-04-21] MEDS ORDERED: Vancomycin Trough Check NOTE FOLLOW UP ONE (13:30)
[2017-04-21 14:08] LABS: EGFR Non-African American 39.3 (>60)
[2017-04-21 14:09] LABS: EGFR African American 50.6 (>60)
--- NOTE | 2017-04-21 14:47 | PN ---
Subjective Date of Service: 04/21/17 Interval History: Patient seen and examined. HR controlled through the night, back in RSR, no further afib or ectopy noted on tele. Patient states his breathing feels a little more labored today. Pain in left foot, afebrile, no chest pain. Family History: Unchanged from Admission Social History: Unchanged from Admission Past Medical History: Unchanged from Admission Objective Active Medications: Acetaminophen (Tylenol Tab*) 650 mg PO Q4H PRN PRN Reason: FEVER/PAIN Last Admin: 04/15/17 18:57 Dose: 650 mg Al Hydrox/Mg Hydrox/Simethicone (Maalox Plus*) 30 ml PO Q6H PRN PRN Reason: INDIGESTION Albuterol/Ipratropium (Duoneb (Albuterol 2.5 Mg/Ipratropium 0.5 Mg)) 1 neb INH Q4H [facility] Allopurinol (Zyloprim Tab*) 300 mg PO BID [facility] Last Admin: 04/21/17 09:21 Dose: 300 mg Atorvastatin Calcium (Lipitor*) 40 mg PO DAILY [facility] Last Admin: 04/21/17 09:21 Dose: 40 mg Budesonide/Formoterol Fumarate (Symbicort 160/4.5 (Nf)) 2 puff INH BID [facility] PRN Reason: Protocol Stop: 04/27/17 21:00 Dextrose (D50w Syringe 50 Ml*) 12.5 gm IV PUSH .FOR FS < 60 - SS PRN PRN Reason: FS < 60 Diltiazem HCl (Cardizem Cd Cap*) 360 mg PO DAILY [facility] Last Admin: 04/21/17 09:22 Dose: 360 mg Docusate Sodium (Colace Cap*) 100 mg PO BID [facility] Last Admin: 04/21/17 09:21 Dose: 100 mg Fluticasone Propionate (Flonase Nasal [place] 50mcg*) 2 spray BOTH NARES DAILY PRN PRN Reason: Allergy Symptoms Vancomycin HCl 500 mg/ Sodium (Chloride) 250 mls @ 166.667 mls/hr IVPB Q12H [facility] Last Admin: 04/21/17 02:07 Dose: 166.667 mls/hr Insulin Human Isoph/Insulin Regular (Humulin 70/30 (*)) 50 units SUBCUT 0800, 1700 [facility] Last Admin: 04/21/17 09:22 Dose: 50 units Insulin Human Lispro (Humalog*) 0 units SUBCUT ACHS [facility] PRN Reason: Protocol Last Admin: 04/21/17 12:27 Dose: 6 units Levothyroxine Sodium (Synthroid Tab*) 200 mcg PO DAILY@0600 [facility] Last Admin: 04/21/17 05:09 Dose: 200 mcg Metolazone (Zaroxolyn Tab*) 5 mg PO DAILY [facility] Last Admin: 04/21/17 09:21 Dose: 5 mg Metoprolol Tartrate (Lopressor Tab*) 25 mg PO BID [facility] Last Admin: 04/21/17 09:21 Dose: 25 mg Morphine Sulfate (Morphine Inj (Syringe)*) 2 mg IV Q4H PRN PRN Reason: PAIN Last Admin: 04/21/17 12:26 Dose: 2 mg Oxycodone HCl (Roxycodone Tab*) 10 mg PO Q4H PRN PRN Reason: PAIN Last Admin: 04/21/17 10:30 Dose: 10 mg Oxycodone/Acetaminophen (Percocet 5/325 Tab*) 1 tab PO Q4H PRN PRN Reason: Pain Last Admin: 04/19/17 01:55 Dose: 1 tab Pharmacy Consult (Vancomycin Per Pharmacy*) 1 note FOLLOW UP . PRN PRN Reason: PER PROTOCOL Polyethylene Glycol/Electrolytes (Miralax*) 17 gm PO DAILY [facility] Last Admin: 04/21/17 09:20 Dose: 17 gm Senna (Senokot Tab*) 2 tab PO BEDTIME [facility] Last Admin: 04/20/17 20:43 Dose: 2 tab Spironolactone (Aldactone Tab*) 50 mg PO DAILY [facility] Last Admin: 04/21/17 09:21 Dose: 50 mg Torsemide (Demadex*) 40 mg PO 0900,1600 [facility] Last Admin: 04/21/17 09:21 Dose: 40 mg Vital Signs - 8 hr 04/21/17 04/21/17 04/21/17 07:26 07:33 07:39 Temperature 98.1 F Pulse Rate 69 Respiratory 20 20 20 Rate Blood Pressure 137/59 (mmHg) O2 Sat by Pulse 97 Oximetry 04/21/17 04/21/17 04/21/17 08:06 09:10 10:30 Temperature Pulse Rate 72 Respiratory 18 22 22 Rate Blood Pressure (mmHg) O2 Sat by Pulse 97 Oximetry 04/21/17 04/21/17 04/21/17 12:26 12:30 12:57 Temperature Pulse Rate 67 Respiratory 24 20 24 Rate Blood Pressure (mmHg) O2 Sat by Pulse 98 Oximetry 04/21/17 13:55 Temperature Pulse Rate Respiratory 16 Rate Blood Pressure (mmHg) O2 Sat by Pulse Oximetry Oxygen Devices in Use Now: Nasal Cannula Appearance: Alert, breathing mildly labored Eyes: No Scleral Icterus, PERRLA Ears/Nose/Mouth/Throat: NL Teeth, Lips, Gums Neck: NL Appearance and Movements; NL JVP, Trachea Midline Respiratory: Clear to Auscultation Cardiovascular: NL Sounds; No Murmurs; No JVD, RRR Abdominal: NL Sounds; No Tenderness; No Distention Extremities: - - mottled LE, dressing to left foot CDI Neurological: Alert and Oriented x 3, NL Sensation Nutrition: Taking PO's Result Diagrams: 04/19/17 06:28 04/21/17 13:32 Additional Lab and Data: . Microbiology and Other Data: . Microbiology 04/17/17 13:30 Gram Stain - Final Misc Fluid (See Comment) - Ankle Left Body Fluid Culture - Preliminary MRSA Skin and Soft Tissue MRSA/MSSA (PCR - Final Mrsa Positive S.aureus Positive 04/15/17 07:46 Aerobic Blood Culture - Preliminary Blood Venous No Growth Day 4 Anaerobic Blood Culture - Final MRSA 04/15/17 07:46 Aerobic Blood Culture - Final Blood Venous MRSA Anaerobic Blood Culture - Preliminary No Growth Day 4 Blood MRSA/MSSA (PCR) - Final Mrsa Positive S.aureus Positive 04/18/17 06:26 Aerobic Blood Culture - Preliminary Blood Venous No Growth Day 1 Anaerobic Blood Culture - Preliminary No Growth Day 1 04/18/17 06:26 Aerobic Blood Culture - Preliminary Blood Venous No Growth Day 1 Anaerobic Blood Culture - Preliminary No Growth Day 1 Assess/Plan/Problems-Billing This is a 51 year old male with PMHx of morbid obesity, afib, and DM presenting with sepsis 2/2 MRSA cellulitis/infection of LLE foot wound, being managed on antibiotics and requiring I&D of left foot/ankle, POD2. - Patient Problems (1) Septicemia Code(s): A41.9 - SEPSIS, UNSPECIFIED ORGANISM SNOMED Code(s): 970335912 Comment: - 2/2 MRSA of wound - Sepsis now resolved - Continue IV vanco as per ID - Follow blood and deep wound cultures - Does not appear to have endocarditis - Afebrile (2) Atrial fibrillation Code(s): I48.91 - UNSPECIFIED ATRIAL FIBRILLATION SNOMED Code(s): 00291462 Comment: - Had RVR last night - Received 20mg IV diltiazem with good response - Per record, patient was on cardizem CD 360 at home, restarted - Telemetry can be DCd today - Continue metoprolol - Restart AC if/when clear by surgery (3) Cellulitis and abscess of leg Code(s): L02.419 - CUTANEOUS ABSCESS OF LIMB, UNSPECIFIED; L03.119 - CELLULITIS OF UNSPECIFIED PART OF LIMB SNOMED Code(s): 214086503 Comment: - S/P I&D left foot/ankle, POD1 - Dr. Fierro following - Continue vanco for now - Follow blood and wound cx - Pain control per surgery - DC IVF (4) Chronic respiratory failure Code(s): J96.10 - CHRONIC RESPIRATORY FAILURE, UNSP W HYPOXIA OR HYPERCAPNIA SNOMED Code(s): 27738085 Comment: - 2/2 Obesity, COPD and Hypoventilation syndrome - Feeling more SOB today - Change to duonebs Q4 - Add symbicort BID, first dose now - Continue O@ at %LNC (5) Morbid obesity Code(s): E66.01 - MORBID (SEVERE) OBESITY DUE TO EXCESS CALORIES SNOMED Code(s ): 792163527 Comment: - BMI 60.8 (6) CKD (chronic kidney disease) stage 3, GFR 30-59 ml/min Code(s): N18.3 - CHRONIC KIDNEY DISEASE, STAGE 3 (MODERATE) SNOMED Code(s): 831943175 Comment: - Creatinine at baseline, continue to monitor (7) Diastolic CHF, chronic Code(s): I50.32 - CHRONIC DIASTOLIC (CONGESTIVE) HEART FAILURE SNOMED Code(s) : 225556471 Comment: - 2/2 hx of cardiomyopathy? - Continue metolazone, torsemide, spironolactone, BB - Daily weights - No acute exac noted, fluids DC'd now that patient is no longer NPO (8) Diabetes mellitus Code(s): E11.9 - TYPE 2 DIABETES MELLITUS WITHOUT COMPLICATIONS SNOMED Code(s) : 62629188 Comment: - Continue carb control diet - Accuchecks AC and HS - Insulin SS for coverage; with 70/30 daily - BG stable Status and Disposition: Remain inpatient for resolving sepsis 2/2 LE cellulitis and non-healing MRSA wound; s/p I&D POD2. Will need longer term atbx and rehab at discharge to be managed by Dr. Fierro. Remains NWB on affected side as per ortho/surgery. HR stable, continue to monitor resp status. Counseling and/or Coordination of Care Minutes: Coordinated with patient, RN and Dr. Fierro. Time spent >45mins
[2017-04-21] MEDS: Mometasone/Formoter 200/5 MDI INH SCH ×2 (15:33→20:10)
[2017-04-21] MEDS: Albuterol/Ipratropium NEB.SOL* Albuterol 2.5 MG/Ipratropium 0.5 MG 3 ML INH SCH ×3 (15:35→23:27)
[2017-04-21] MEDS: Senna TAB PO SCH (21:18)
[2017-04-22] MEDS: Vancomycin(*) 500 MG in NS 0.9% 250 ML* 250 ML IVPB SCH ×2 (01:51→15:08)
[2017-04-22] MEDS: Albuterol/Ipratropium NEB.SOL* Albuterol 2.5 MG/Ipratropium 0.5 MG 3 ML INH SCH ×6 (02:55→23:25)
[2017-04-22] MEDS: Levothyroxine TAB* 100 MCG TAB PO SCH (05:53)
[2017-04-22] MEDS: oxyCODONE TAB* 5 MG TAB PO PRN ×3 (05:55→19:59)
[2017-04-22 06:36] LABS: EGFR African American 47.5 (>60)
[2017-04-22] MEDS: Mometasone/Formoter 200/5 MDI INH SCH ×2 (07:56→19:26)
[2017-04-22] MEDS: Polyethylene Glycol 3350* 17 GM PACKET PO SCH (08:17)
[2017-04-22] MEDS: Morphine INJ* 2 MG/ML 1 ML SYRINGE (TWO MG - NEW SYRINGE VERSION) IV PRN (08:17)
[2017-04-22] MEDS: Torsemide TAB* 20 MG PO SCH ×2 (08:18→17:42)
[2017-04-22] MEDS: Insulin LISPRO* 1 UNITS UNIT SUBCUT SCH ×4 (08:18→21:12)
[2017-04-22] MEDS: Insulin ISOPH/REG 70/30 (*) 1 UNITS UNIT SUBCUT SCH ×2 (08:18→17:42)
[2017-04-22] MEDS: Docusate CAP* 100 MG PO SCH ×2 (08:19→21:11)
[2017-04-22] MEDS: Metolazone TAB* 5 MG PO SCH (08:19)
[2017-04-22] MEDS: Allopurinol TAB* 300 MG PO SCH ×2 (08:19→21:11)
[2017-04-22] MEDS: Diltiazem CD CAP* 180 MG PO SCH (08:19)
[2017-04-22] MEDS: Atorvastatin* 40 MG TAB PO SCH (08:19)
[2017-04-22] MEDS: Spironolactone TAB* 25 MG PO SCH (08:19)
[2017-04-22] MEDS: Metoprolol Tartrate TAB* 25 MG PO SCH ×2 (08:20→21:11)
--- NOTE | 2017-04-22 10:27 | PN ---
Progress Note - Progress Note Date of Service: 04/22/17 SOAP: Subjective: doing well, pain improving [] Objective: Temp Pulse Resp BP Pulse Ox 98.1 F 71 22 115/50 99 04/22/17 07:30 04/22/17 07:58 04/22/17 08:17 04/22/17 07:30 04/22/17 07:58 left foot with improved swelling deformity from [place] improved erythema [] Assessment: doing well POD3 I&D [] Plan: NWB LLE Drain likely out tomorrow abx per ID []
--- NOTE | 2017-04-22 12:46 | PN ---
Subjective Date of Service: 04/22/17 Interval History: Patient seen and examined. No acute overnight events. Breathing is better. No further afib. No chest pain. Foot pain improved. No fevers or chills. Tolerating PO. Family History: Unchanged from Admission Social History: Unchanged from Admission Past Medical History: Unchanged from Admission Objective Active Medications: Acetaminophen (Tylenol Tab*) 650 mg PO Q4H PRN PRN Reason: FEVER/PAIN Last Admin: 04/15/17 18:57 Dose: 650 mg Al Hydrox/Mg Hydrox/Simethicone (Maalox Plus*) 30 ml PO Q6H PRN PRN Reason: INDIGESTION Last Admin: 04/21/17 20:20 Dose: 30 ml Albuterol (Ventolin 2.5 Mg/3 Ml Neb.Christy*) 2.5 mg INH Q4H PRN PRN Reason: SOB/WHEEZING Last Admin: 04/21/17 17:47 Dose: 2.5 mg Albuterol/Ipratropium (Duoneb (Albuterol 2.5 Mg/Ipratropium 0.5 Mg)) 1 neb INH Q4H [facility] Last Admin: 04/22/17 07:55 Dose: 1 neb Allopurinol (Zyloprim Tab*) 300 mg PO BID [facility] Last Admin: 04/22/17 08:19 Dose: 300 mg Atorvastatin Calcium (Lipitor*) 40 mg PO DAILY [facility] Last Admin: 04/22/17 08:19 Dose: 40 mg Dextrose (D50w Syringe 50 Ml*) 12.5 gm IV PUSH .FOR FS < 60 - SS PRN PRN Reason: FS < 60 Diltiazem HCl (Cardizem Cd Cap*) 360 mg PO DAILY [facility] Last Admin: 04/22/17 08:19 Dose: 360 mg Docusate Sodium (Colace Cap*) 100 mg PO BID [facility] Last Admin: 04/22/17 08:19 Dose: 100 mg Fluticasone Propionate (Flonase Nasal [place] 50mcg*) 2 spray BOTH NARES DAILY PRN PRN Reason: Allergy Symptoms Vancomycin HCl 500 mg/ Sodium (Chloride) 250 mls @ 166.667 mls/hr IVPB Q12H [facility] Last Admin: 04/22/17 01:51 Dose: 166.667 mls/hr Insulin Human Isoph/Insulin Regular (Humulin 70/30 (*)) 100 units SUBCUT 0800, 1700 [facility] Insulin Human Lispro (Humalog*) 0 units SUBCUT ACHS [facility] PRN Reason: Protocol Last Admin: 04/22/17 08:18 Dose: 4 units Levothyroxine Sodium (Synthroid Tab*) 200 mcg PO DAILY@0600 [facility] Last Admin: 04/22/17 05:53 Dose: 200 mcg Metolazone (Zaroxolyn Tab*) 5 mg PO DAILY [facility] Last Admin: 04/22/17 08:19 Dose: 5 mg Metoprolol Tartrate (Lopressor Tab*) 25 mg PO BID [facility] Last Admin: 04/22/17 08:20 Dose: Not Given Mometasone Furoate/Formoterol Fumar (Dulera 200/5 Mdi*) 2 puff INH BID [facility] PRN Reason: Protocol Stop: 04/27/17 21:00 Last Admin: 04/22/17 07:56 Dose: 2 puff Oxycodone HCl (Roxycodone Tab*) 10 mg PO Q6H PRN PRN Reason: PAIN - MODERATE TO SEVERE Last Admin: 04/22/17 12:01 Dose: 10 mg Oxycodone/Acetaminophen (Percocet 5/325 Tab*) 1 tab PO Q4H PRN PRN Reason: PAIN Pharmacy Consult (Vancomycin Per Pharmacy*) 1 note FOLLOW UP . PRN PRN Reason: PER PROTOCOL Polyethylene Glycol/Electrolytes (Miralax*) 17 gm PO DAILY [facility] Last Admin: 04/22/17 08:17 Dose: 17 gm Senna (Senokot Tab*) 2 tab PO BEDTIME [facility] Last Admin: 04/21/17 21:18 Dose: 2 tab Spironolactone (Aldactone Tab*) 50 mg PO DAILY [facility] Last Admin: 04/22/17 08:19 Dose: 50 mg Torsemide (Demadex*) 40 mg PO 0900,1600 [facility] Last Admin: 04/22/17 08:18 Dose: 40 mg Vital Signs - 8 hr 04/22/17 04/22/17 04/22/17 05:55 07:30 07:57 Temperature 98.1 F Pulse Rate 61 Respiratory 20 20 Rate Blood Pressure 115/50 (mmHg) O2 Sat by Pulse 99 99 Oximetry 04/22/17 04/22/17 04/22/17 07:58 08:00 08:17 Temperature Pulse Rate 71 Respiratory 19 22 22 Rate Blood Pressure (mmHg) O2 Sat by Pulse 99 99 Oximetry 04/22/17 04/22/17 10:31 12:01 Temperature Pulse Rate Respiratory 20 22 Rate Blood Pressure (mmHg) O2 Sat by Pulse Oximetry Oxygen Devices in Use Now: Nasal Cannula Appearance: Alert, NAD Eyes: No Scleral Icterus, PERRLA Ears/Nose/Mouth/Throat: NL Teeth, Lips, Gums Neck: NL Appearance and Movements; NL JVP, Trachea Midline Respiratory: Symmetrical Chest Expansion and Respiratory Effort - Mild expiratory wheeze right Cardiovascular: NL Sounds; No Murmurs; No JVD, RRR Extremities: - - mottled LE, less edema on operative side Neurological: Alert and Oriented x 3, NL Sensation Nutrition: Taking PO's Result Diagrams: 04/19/17 06:28 04/22/17 05:44 Additional Lab and Data: . Microbiology and Other Data: . Microbiology 04/17/17 13:30 Gram Stain - Final Misc Fluid (See Comment) - Ankle Left Body Fluid Culture - Preliminary MRSA Skin and Soft Tissue MRSA/MSSA (PCR - Final Mrsa Positive S.aureus Positive 04/15/17 07:46 Aerobic Blood Culture - Preliminary Blood Venous No Growth Day 4 Anaerobic Blood Culture - Final MRSA 04/15/17 07:46 Aerobic Blood Culture - Final Blood Venous MRSA Anaerobic Blood Culture - Preliminary No Growth Day 4 Blood MRSA/MSSA (PCR) - Final Mrsa Positive S.aureus Positive 04/18/17 06:26 Aerobic Blood Culture - Preliminary Blood Venous No Growth Day 1 Anaerobic Blood Culture - Preliminary No Growth Day 1 04/18/17 06:26 Aerobic Blood Culture - Preliminary Blood Venous No Growth Day 1 Anaerobic Blood Culture - Preliminary No Growth Day 1 Assess/Plan/Problems-Billing This is a 51 year old male with PMHx of morbid obesity, afib, and DM presenting with sepsis 2/2 MRSA cellulitis/infection of LLE foot wound, being managed on antibiotics and requiring I&D of left foot/ankle, POD3. - Patient Problems (1) Septicemia Code(s): A41.9 - SEPSIS, UNSPECIFIED ORGANISM SNOMED Code(s): 097704649 Comment: - 2/2 MRSA of wound/foot - Sepsis resolved - Continue IV vanco as per ID - Bump up in creat, may want to go to 750mg daily as opposed to 500mg BID on vanco. Will discuss with Dr. Fierro tomorrow. (2) Atrial fibrillation Code(s): I48.91 - UNSPECIFIED ATRIAL FIBRILLATION SNOMED Code(s): 39833092 Comment: - RVR resolved - Continue cardizem CD 360mg - No need for tele - Continue metoprolol - Restart AC when clear by surgery, likely tomorrow after drain is pulled (3) Chronic respiratory failure Code(s): J96.10 - CHRONIC RESPIRATORY FAILURE, UNSP W HYPOXIA OR HYPERCAPNIA SNOMED Code(s): 58440843 Comment: - 2/2 Obesity, COPD and Hypoventilation syndrome - Duonebs Q4 with PRN albuterol - Add symbicort BID, first dose now - Continue O2@ at 5LNC (4) Morbid obesity Code(s): E66.01 - MORBID (SEVERE) OBESITY DUE TO EXCESS CALORIES SNOMED Code(s ): 086056849 Comment: - BMI 60.8 (5) CKD (chronic kidney disease) stage 3, GFR 30-59 ml/min Code(s): N18.3 - CHRONIC KIDNEY DISEASE, STAGE 3 (MODERATE) SNOMED Code(s): 602168674 Comment: - Creatinine up today at 1.92, monitor, may need to adjust vanco (6) Diastolic CHF, chronic Code(s): I50.32 - CHRONIC DIASTOLIC (CONGESTIVE) HEART FAILURE SNOMED Code(s) : 199212699 Comment: - 2/2 hx of cardiomyopathy? - Continue metolazone, torsemide, spironolactone, BB - Does not appear volume overloaded - Stable (7) Diabetes mellitus Code(s): E11.9 - TYPE 2 DIABETES MELLITUS WITHOUT COMPLICATIONS SNOMED Code(s) : 88606744 Comment: - Continue carb control diet - Accuchecks AC and HS - Insulin SS for coverage; with 70/30 daily - BG elevated last 24 hours, will increase his 70/30 back to home dose of 100 units BID Status and Disposition: Discussed case with ortho today. Patient will be clear for DC tomorrow after drain is pulled and dressing is changed. Will coordinated IV atbx therapy with Dr. Fierro. Patient remains NWB on RLE and needs rehab placement
[2017-04-22] MEDS: Senna TAB PO SCH (21:11)
[2017-04-22] MEDS: oxyCODONE/Acetamin 5/325 MG* TAB PO PRN (21:11)
[2017-04-23] MEDS: oxyCODONE/Acetamin 5/325 MG* TAB PO PRN ×3 (01:10→20:08)
[2017-04-23] MEDS: Vancomycin(*) 500 MG in NS 0.9% 250 ML* 250 ML IVPB SCH ×3 (02:06→18:07)
[2017-04-23] MEDS: Albuterol/Ipratropium NEB.SOL* Albuterol 2.5 MG/Ipratropium 0.5 MG 3 ML INH SCH ×6 (03:14→23:06)
[2017-04-23] MEDS: Levothyroxine TAB* 100 MCG TAB PO SCH (06:10)
[2017-04-23] MEDS: Mometasone/Formoter 200/5 MDI INH SCH ×2 (07:44→19:37)
[2017-04-23] MEDS: Docusate CAP* 100 MG PO SCH ×2 (09:45→20:08)
[2017-04-23] MEDS: Torsemide TAB* 20 MG PO SCH ×2 (09:45→18:04)
[2017-04-23] MEDS: Allopurinol TAB* 300 MG PO SCH ×2 (09:45→20:08)
[2017-04-23] MEDS: Metoprolol Tartrate TAB* 25 MG PO SCH ×2 (09:45→21:10)
[2017-04-23] MEDS: Diltiazem CD CAP* 180 MG PO SCH (09:45)
[2017-04-23] MEDS: Polyethylene Glycol 3350* 17 GM PACKET PO SCH (09:46)
[2017-04-23] MEDS: Metolazone TAB* 5 MG PO SCH (09:46)
[2017-04-23] MEDS: Atorvastatin* 40 MG TAB PO SCH (09:46)
[2017-04-23] MEDS: Insulin LISPRO* 1 UNITS UNIT SUBCUT SCH ×4 (09:48→21:13)
[2017-04-23] MEDS: Insulin ISOPH/REG 70/30 (*) 1 UNITS UNIT SUBCUT SCH ×2 (09:48→18:03)
--- NOTE | 2017-04-23 10:16 | PN ---
Subjective Date of Service: 04/23/17 Interval History: Patient seen and examined. No acute overnight events. Feeling well, at bedside. No c/o SOB, no chest pain, foot pain well controlled. States he feels constipated. Otherwise doing well. Explained discharge planning today to him and his . Family History: Unchanged from Admission Social History: Unchanged from Admission Past Medical History: Unchanged from Admission Objective Active Medications: Acetaminophen (Tylenol Tab*) 650 mg PO Q4H PRN PRN Reason: FEVER/PAIN Last Admin: 04/15/17 18:57 Dose: 650 mg Al Hydrox/Mg Hydrox/Simethicone (Maalox Plus*) 30 ml PO Q6H PRN PRN Reason: INDIGESTION Last Admin: 04/21/17 20:20 Dose: 30 ml Albuterol (Ventolin 2.5 Mg/3 Ml Neb.Christy*) 2.5 mg INH Q4H PRN PRN Reason: SOB/WHEEZING Last Admin: 04/21/17 17:47 Dose: 2.5 mg Albuterol/Ipratropium (Duoneb (Albuterol 2.5 Mg/Ipratropium 0.5 Mg)) 1 neb INH Q4H [facility] Last Admin: 04/23/17 07:44 Dose: 1 neb Allopurinol (Zyloprim Tab*) 300 mg PO BID [facility] Last Admin: 04/23/17 09:45 Dose: 300 mg Atorvastatin Calcium (Lipitor*) 40 mg PO DAILY [facility] Last Admin: 04/23/17 09:46 Dose: 40 mg Dextrose (D50w Syringe 50 Ml*) 12.5 gm IV PUSH .FOR FS < 60 - SS PRN PRN Reason: FS < 60 Diltiazem HCl (Cardizem Cd Cap*) 360 mg PO DAILY [facility] Last Admin: 04/23/17 09:45 Dose: 360 mg Docusate Sodium (Colace Cap*) 100 mg PO BID [facility] Last Admin: 04/23/17 09:45 Dose: 100 mg Fluticasone Propionate (Flonase Nasal [place] 50mcg*) 2 spray BOTH NARES DAILY PRN PRN Reason: Allergy Symptoms Vancomycin HCl 500 mg/ Sodium (Chloride) 250 mls @ 166.667 mls/hr IVPB Q12H [facility] Last Admin: 04/23/17 02:06 Dose: 166.667 mls/hr Insulin Human Isoph/Insulin Regular (Humulin 70/30 (*)) 100 units SUBCUT 0800, 1700 [facility] Last Admin: 04/23/17 09:48 Dose: 100 units Insulin Human Lispro (Humalog*) 0 units SUBCUT ACHS [facility] PRN Reason: Protocol Last Admin: 04/23/17 09:48 Dose: 4 units Levothyroxine Sodium (Synthroid Tab*) 200 mcg PO DAILY@0600 [facility] Last Admin: 04/23/17 06:10 Dose: 200 mcg Metolazone (Zaroxolyn Tab*) 5 mg PO DAILY [facility] Last Admin: 04/23/17 09:46 Dose: 5 mg Metoprolol Tartrate (Lopressor Tab*) 25 mg PO BID [facility] Last Admin: 04/23/17 09:45 Dose: 25 mg Mometasone Furoate/Formoterol Fumar (Dulera 200/5 Mdi*) 2 puff INH BID [facility] PRN Reason: Protocol Stop: 04/27/17 21:00 Last Admin: 04/23/17 07:44 Dose: 2 puff Oxycodone HCl (Roxycodone Tab*) 10 mg PO Q6H PRN PRN Reason: PAIN - MODERATE TO SEVERE Last Admin: 04/22/17 19:59 Dose: 10 mg Oxycodone/Acetaminophen (Percocet 5/325 Tab*) 1 tab PO Q4H PRN PRN Reason: PAIN Last Admin: 04/23/17 06:10 Dose: 1 tab Pharmacy Consult (Vancomycin Per Pharmacy*) 1 note FOLLOW UP . PRN PRN Reason: PER PROTOCOL Pharmacy Profile Note (Vancomycin Trough Check) 1 note FOLLOW UP 1330 ONE Stop: 04/23/17 13:31 Polyethylene Glycol/Electrolytes (Miralax*) 17 gm PO DAILY [facility] Last Admin: 04/23/17 09:46 Dose: 17 gm Senna (Senokot Tab*) 2 tab PO BEDTIME [facility] Last Admin: 04/22/17 21:11 Dose: 2 tab Spironolactone (Aldactone Tab*) 50 mg PO DAILY [facility] Last Admin: 04/22/17 08:19 Dose: 50 mg Torsemide (Demadex*) 40 mg PO 0900,1600 [facility] Last Admin: 04/23/17 09:45 Dose: 40 mg Vital Signs - 8 hr 04/23/17 04/23/17 04/23/17 03:18 03:38 04:38 Temperature 97.9 F Pulse Rate 82 59 Respiratory 18 20 18 Rate Blood Pressure 137/61 (mmHg) O2 Sat by Pulse 98 98 Oximetry 04/23/17 04/23/17 04/23/17 06:10 07:51 09:49 Temperature Pulse Rate 64 Respiratory 17 18 18 Rate Blood Pressure (mmHg) O2 Sat by Pulse 97 Oximetry Oxygen Devices in Use Now: Nasal Cannula Appearance: Awake, alert, NAD Eyes: No Scleral Icterus, PERRLA Ears/Nose/Mouth/Throat: NL Teeth, Lips, Gums, Mucous Membranes Moist Neck: NL Appearance and Movements; NL JVP, Trachea Midline Respiratory: Clear to Auscultation - clear at the apices, diminished at the bases Cardiovascular: NL Sounds; No Murmurs; No JVD, RRR Abdominal: NL Sounds; No Tenderness; No Distention - obese Extremities: - - less edema to left foot and ankle, dressingd CDI, less mottling to right foot Neurological: Alert and Oriented x 3, NL Sensation Nutrition: Taking PO's Result Diagrams: 04/19/17 06:28 04/22/17 05:44 Additional Lab and Data: . Microbiology and Other Data: . Microbiology 04/17/17 13:30 Gram Stain - Final Misc Fluid (See Comment) - Ankle Left Body Fluid Culture - Preliminary MRSA Skin and Soft Tissue MRSA/MSSA (PCR - Final Mrsa Positive S.aureus Positive 04/15/17 07:46 Aerobic Blood Culture - Preliminary Blood Venous No Growth Day 4 Anaerobic Blood Culture - Final MRSA 04/15/17 07:46 Aerobic Blood Culture - Final Blood Venous MRSA Anaerobic Blood Culture - Preliminary No Growth Day 4 Blood MRSA/MSSA (PCR) - Final Mrsa Positive S.aureus Positive 04/18/17 06:26 Aerobic Blood Culture - Preliminary Blood Venous No Growth Day 1 Anaerobic Blood Culture - Preliminary No Growth Day 1 04/18/17 06:26 Aerobic Blood Culture - Preliminary Blood Venous No Growth Day 1 Anaerobic Blood Culture - Preliminary No Growth Day 1 Assess/Plan/Problems-Billing This is a 51 year old male with PMHx of morbid obesity, afib, and DM presenting with sepsis 2/2 MRSA cellulitis/infection of LLE foot wound, being managed on antibiotics and requiring I&D of left foot/ankle, POD4. - Patient Problems (1) Septicemia Code(s): A41.9 - SEPSIS, UNSPECIFIED ORGANISM SNOMED Code(s): 339240839 Comment: - 2/2 MRSA of wound/foot - Sepsis resolved - Continue IV vanco as per ID, will go to once daily dosing as opposed to BID - Watch creatinine - Refer for PICC line (2) Atrial fibrillation Code(s): I48.91 - UNSPECIFIED ATRIAL FIBRILLATION SNOMED Code(s): 11882701 Comment: - RVR resolved - Continue cardizem CD 360mg - No need for tele - Continue metoprolol - Restart AC with coumadin after drain is pulled today if ok with surgery (3) Chronic respiratory failure Code(s): J96.10 - CHRONIC RESPIRATORY FAILURE, UNSP W HYPOXIA OR HYPERCAPNIA SNOMED Code(s): 68171869 Comment: - 2/2 Obesity, COPD and Hypoventilation syndrome - Duonebs Q4 with PRN albuterol - Added symbicort yesterday - Continue O2@ at 5LNC - Seems improved today (4) Morbid obesity Code(s): E66.01 - MORBID (SEVERE) OBESITY DUE TO EXCESS CALORIES SNOMED Code(s ): 935501905 Comment: - BMI 60.8 - Counseled patient on seriously considering weight loss given extensive comorbities (5) CKD (chronic kidney disease) stage 3, GFR 30-59 ml/min Code(s): N18.3 - CHRONIC KIDNEY DISEASE, STAGE 3 (MODERATE) SNOMED Code(s): 880253147 Comment: - Creatinine at 1.92, continue to monitor while on vanco, discussed with Dr. Fierro (6) Diastolic CHF, chronic Code(s): I50.32 - CHRONIC DIASTOLIC (CONGESTIVE) HEART FAILURE SNOMED Code(s) : 468286409 Comment: - 2/2 hx of cardiomyopathy and afib? - Continue metolazone, torsemide, spironolactone, BB - Remains stable (7) Diabetes mellitus Code(s): E11.9 - TYPE 2 DIABETES MELLITUS WITHOUT COMPLICATIONS SNOMED Code(s) : 65594624 Comment: - Continue carb control diet - Accuchecks AC and HS - Insulin SS for coverage; with 70/30 daily which was increased to 100units BID yesterday - Counseled on diet and high sugars (8) Left foot infection Code(s): L08.9 - LOCAL INFECTION OF THE SKIN AND SUBCUTANEOUS TISSUE, UNSP SNOMED Code(s): 046388598 Comment: - POD 4, I&D - Continue vanco as per ID - Drain to be removed today with dressing change - Clear by ortho for DC to rehab, remain NWB on LLE for Charcot foot; reinforced this heavily with patient and his Status and Disposition: Medically optimized for DC to rehab when appropriate bed obtained. Counseling and/or Coordination of Care Minutes: Coordinated with patient and staff and Dr. Fierro. Time spent >45mins
--- NOTE | 2017-04-23 10:59 | PN ---
Progress Note - Progress Note Date of Service: 04/23/17 SOAP: Subjective: CC: Left foot pain HPI: 51 year old man with sudden onset left foot pain and swelling, abscess on MRI, aspirated, growing MRSA which is also in blood. Had I&D, no foot pain, swelling decreasing. No fever, rash, or diarrhea. Objective: [] Vital Signs Temp 36.6 C 04/23/17 08:18 Pulse 69 04/23/17 08:18 Resp 18 04/23/17 09:49 BP 124/59 04/23/17 08:18 Pulse Ox 99 04/23/17 08:18 Intake & Output 04/22/17 04/23/17 04/23/17 18:59 06:59 18:59 Intake Total 1747 440 470 Output Total 2650 1400 500 Balance -903 -960 -30 Intake: IV Fluids 15 vancomycin 15 IVPB 262 vancomycin 262 Oral 1470 440 470 Output: Urine 2650 1400 500 Other: Estimated Void Small # Bowel Movements 0 # Voids 2 1 2 Gen:awake, no distress HEENT:PERRL, MMM Heart:RRR no murmur Lungs:CTA BL Abd:+BS NTND soft Skin: no rash MSK: L foot dorsum edema , incision intact, no fluctuance Laboratory Results - last 24 hr 04/22/17 04/22/17 04/22/17 12:04 17:06 21:02 POC Glucose (mg/dL) 250 H 309 H 312 H 04/23/17 07:47 POC Glucose (mg/dL) 213 H Microbiology 04/19/17 14:34 Anaerobic Culture - Final Wound Gram Stain - Final Wound Culture - Final MRSA 04/18/17 06:26 Aerobic Blood Culture - Final Blood Venous No Growth Day 5 Anaerobic Blood Culture - Final No Growth Day 5 04/18/17 06:26 Aerobic Blood Culture - Final Blood Venous No Growth Day 5 Anaerobic Blood Culture - Final No Growth Day 5 Assessment: 1. MRSA bacteremia, cleared; no stigmata of IE and low grade bacteremia, doubt endocarditis 2. MRSA abscess left foot 3. morbid obesity 4. insulin dependent diabetes 5. CKD, stage 5 Plan: 1. continue vancomycin goal tr 15-20; day 09/01 with weekly cbc, cmp, crp, vanco trough 35 minutes floor time >50% in counseling regarding antibiotic and rehab plans.
[2017-04-23] MEDS: Spironolactone TAB* 25 MG PO SCH (11:00)
--- NOTE | 2017-04-23 13:21 | PN ---
Progress Note - Progress Note Date of Service: 04/23/17 SOAP: Subjective: 51 y.o male s/p I&D of L foot by DR. Mckee 04/19/2017. Objective: General-, NAD, AO SItting in bed comfortably MSK- LLE dressing removed, leg with chronic hyperpigmentation of skin. cori drain removed without difficulty, minimal serous drainage seen at incision, leanna intact, no erythema noted. L foot swollen appearing. Re- dressed without difficulty. Vital Signs Temp 97.8 F 04/23/17 12:00 Pulse 84 04/23/17 12:00 Resp 20 04/23/17 12:00 BP 132/61 04/23/17 12:00 Pulse Ox 97 04/23/17 12:00 Intake & Output 04/22/17 04/23/17 04/23/17 18:59 06:59 18:59 Intake Total 1747 440 470 Output Total 2650 1400 1325 Balance -903 960 -855 Intake: IV Fluids 15 vancomycin 15 IVPB 262 vancomycin 262 Oral 1470 440 470 Output: Urine 2650 1400 1325 Other: Estimated Void Small # Bowel Movements 0 # Voids 2 1 2 Assessment: Stable 51 y.o male s/p I&D of L foot by DR. Mckee 04/19/2017. 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 - Rehab at D/C - SD for D/c from ortho standpoint, follow up within 1 week in May for suture removal, wound check - Continue NWB LLE Active Medications Generic Name Dose Route Start Last Admin Trade Name Cliftonq PRN Reason Stop Dose Admin Acetaminophen 650 mg 04/15/17 10:12 04/15/17 18:57 Tylenol Tab* PO 650 mg Q4H PRN Administration FEVER/PAIN Al Hydrox/Mg Hydrox/Simethicone 30 ml 04/15/17 10:12 04/21/17 20:20 Maalox Plus* PO 30 ml Q6H PRN Administration INDIGESTION Albuterol 2.5 mg 04/21/17 17:29 04/21/17 17:47 Ventolin 2.5 Mg/3 Ml Neb.Christy* INH 2.5 mg Q4H PRN Administration SOB/WHEEZING Albuterol/Ipratropium 1 neb 04/21/17 15:00 04/23/17 11:05 Duoneb (Albuterol 2.5 Mg/Ipratropium 0.5 Mg) INH 1 neb Q4H GISELLA Administration Allopurinol 300 mg 04/15/17 21:00 04/23/17 09:45 Zyloprim Tab* PO 300 mg BID GISELLA Administration Atorvastatin Calcium 40 mg 04/16/17 09:00 04/23/17 09:46 Lipitor* PO 40 mg DAILY GISELLA Administration Dextrose 12.5 gm 04/15/17 09:35 D50w Syringe 50 Ml* IV PUSH .FOR FS < 60 - SS PRN FS < 60 Diltiazem HCl 360 mg 04/20/17 17:00 04/23/17 09:45 Cardizem Cd Cap* PO 360 mg DAILY GISELLA Administration Docusate Sodium 100 mg 04/15/17 21:00 04/23/17 09:45 Colace Cap* PO 100 mg BID GISELLA Administration Fluticasone Propionate 2 spray 04/15/17 10:13 Flonase Nasal [place] 50mcg* BOTH NARES DAILY PRN Allergy Symptoms Vancomycin HCl 500 mg/ Sodium 250 mls @ 166.667 mls/hr 04/19/17 14:00 02:06 Chloride IVPB 166.667 mls/hr Q12H GISELLA Administration Insulin Human Isoph/Insulin Regular 100 units 04/22/17 17:00 04/23/17 09:48 Humulin 70/30 (*) SUBCUT 100 units 0800,1700 GISELLA Administration Insulin Human Lispro 0 units 04/15/17 11:30 04/23/17 09:48 Humalog* SUBCUT 4 units ACHS GISELLA Administration Protocol Lactulose 30 ml 04/23/17 10:38 04/23/17 11:00 Lactulose* PO 04/28/17 10:37 30 ml DAILY PRN Administration CONSTIPATION Levothyroxine Sodium 200 mcg 04/16/17 06:00 04/23/17 06:10 Synthroid Tab* PO 200 mcg DAILY@0600 GISELLA Administration Metolazone 5 mg 04/16/17 09:00 04/23/17 09:46 Zaroxolyn Tab* PO 5 mg DAILY GISELLA Administration Metoprolol Tartrate 25 mg 04/15/17 21:00 04/23/17 09:45 Lopressor Tab* PO 25 mg BID GISELLA Administration Mometasone Furoate/Formoterol Fumar 2 puff 04/21/17 15:00 04/23/17 07:44 Dulera 200/5 Mdi* INH 04/27/17 21:00 2 puff BID GISELLA Administration Protocol Oxycodone HCl 10 mg 04/22/17 10:24 04/22/17 19:59 Roxycodone Tab* PO 10 mg Q6H PRN Administration PAIN - MODERATE TO SEVERE Oxycodone/Acetaminophen 1 tab 04/22/17 10:21 04/23/17 06:10 Percocet 5/325 Tab* PO 1 tab Q4H PRN Administration PAIN Pharmacy Consult 1 note 04/17/17 17:22 Vancomycin Per Pharmacy* FOLLOW UP . PRN PER PROTOCOL Pharmacy Profile Note 1 note 04/23/17 13:30 Vancomycin Trough Check FOLLOW UP 04/23/17 13:31 1330 ONE Polyethylene Glycol/Electrolytes 17 gm 04/17/17 09:00 04/23/17 09:46 Miralax* PO 17 gm DAILY GISELLA Administration Senna 2 tab 04/17/17 21:00 04/22/17 21:11 Senokot Tab* PO 2 tab BEDTIME GISELLA Administration Spironolactone 50 mg 04/16/17 09:00 04/23/17 11:00 Aldactone Tab* PO 50 mg DAILY GISELLA Administration Torsemide 40 mg 04/18/17 16:00 04/23/17 09:45 Demadex* PO 40 mg 0900,1600 GISELLA Administration
[2017-04-23] MEDS ORDERED: Vancomycin Trough Check NOTE FOLLOW UP ONE (13:30)
[2017-04-23] MEDS: oxyCODONE TAB* 5 MG TAB PO PRN ×2 (13:56→21:09)
[2017-04-23 16:54] LABS: EGFR African American 53.3 (>60); EGFR Non-African American 41.4 (>60)
[2017-04-23 17:22] LABS: Vancomycin Trough 13.9 mcg/mL
[2017-04-23] MEDS: Senna TAB PO SCH ×2 (20:08→20:10)
[2017-04-24] MEDS: Albuterol/Ipratropium NEB.SOL* Albuterol 2.5 MG/Ipratropium 0.5 MG 3 ML INH SCH ×4 (03:09→14:21)
[2017-04-24] MEDS: Levothyroxine TAB* 100 MCG TAB PO SCH (05:43)
[2017-04-24] MEDS: oxyCODONE TAB* 5 MG TAB PO PRN ×3 (05:43→20:13)
[2017-04-24] MEDS: Vancomycin(*) 500 MG in NS 0.9% 250 ML* 250 ML IVPB SCH ×2 (05:45→18:07)
[2017-04-24] MEDS: Mometasone/Formoter 200/5 MDI INH SCH ×2 (07:36→20:21)
[2017-04-24] MEDS: Polyethylene Glycol 3350* 17 GM PACKET PO SCH (07:53)
[2017-04-24] MEDS: Torsemide TAB* 20 MG PO SCH ×2 (07:54→15:32)
[2017-04-24] MEDS: Metolazone TAB* 5 MG PO SCH (07:54)
[2017-04-24] MEDS: Atorvastatin* 40 MG TAB PO SCH (07:54)
[2017-04-24] MEDS: Docusate CAP* 100 MG PO SCH ×2 (07:55→21:38)
[2017-04-24] MEDS: Diltiazem CD CAP* 180 MG PO SCH (07:55)
[2017-04-24] MEDS: Allopurinol TAB* 300 MG PO SCH ×2 (07:55→21:38)
[2017-04-24] MEDS: Metoprolol Tartrate TAB* 25 MG PO SCH ×2 (07:55→21:38)
[2017-04-24] MEDS: Spironolactone TAB* 25 MG PO SCH (07:55)
[2017-04-24] MEDS: oxyCODONE/Acetamin 5/325 MG* TAB PO PRN (08:06)
[2017-04-24] MEDS: Insulin ISOPH/REG 70/30 (*) 1 UNITS UNIT SUBCUT SCH ×2 (08:07→17:06)
[2017-04-24] MEDS: Insulin LISPRO* 1 UNITS UNIT SUBCUT SCH ×4 (08:07→21:39)
--- NOTE | 2017-04-24 09:03 | PN ---
Progress Note - Progress Note Date of Service: 04/24/17 SOAP: Subjective: []Patient sitting in bed, no acute complaints. No pain of Left foot. Denies CP, SOB, fever or chills. Objective: []General: Well appearing, NAD LLE: Dressing in place, CDI. Patient confirms intact though minimal sensation of all 5 left toes and sensation intact above dressing. Brisk capillary refill of toes. Vital Signs Temp 98.1 F 04/24/17 07:47 Pulse 64 04/24/17 07:47 Resp 20 04/24/17 08:06 BP 144/62 04/24/17 07:47 Pulse Ox 98 04/24/17 07:47 Intake & Output 04/23/17 04/24/17 04/24/17 18:59 06:59 18:59 Intake Total 910 1320 Output Total 2175 2150 Balance -1265 -830 Intake: Oral 910 1320 Output: Urine 2175 2150 Other: Estimated Void Medium # Bowel Movements 2 3 Estimated Stool Amount Large Medium # Voids 2 1 Laboratory Last Values WBC 15.9 10^3/ul (3.5-10.8) H 04/19/17 06:28 RBC 3.82 10^6/ul (4.0-5.4) L 04/19/17 06:28 Hgb 10.2 g/dl (14.0-18.0) L 04/19/17 06:28 Hct 32 % (42-52) L 04/19/17 06:28 MCV 85 fL (80-94) 04/19/17 06:28 MCH 27 pg (27-31) 04/19/17 06:28 MCHC 32 g/dl (31-36) 04/19/17 06:28 RDW 18 % (10.5-15) H 04/19/17 06:28 Plt Count 469 10^3/ul (150-450) H 04/19/17 06:28 MPV 7 um3 (7.4-10.4) L 04/19/17 06:28 Immature Gran % (Auto) 3 % (0-9) 04/17/17 06:32 Neut % (Auto) 82.1 % (38-83) 04/19/17 06:28 Lymph % (Auto) 4.4 % (25-47) L 04/19/17 06:28 [place] % (Auto) 7.2 % (1-9) 04/19/17 06:28 Eos % (Auto) 5.3 % (0-6) 04/19/17 06:28 Baso % (Auto) 1.0 % (0-2) 04/19/17 06:28 Absolute Neuts (auto) 13.0 10^3/ul (1.5-7.7) H 04/19/17 06:28 Absolute Lymphs (auto) 0.7 10^3/ul (1.0-4.8) L 04/19/17 06:28 Absolute Monos (auto) 1.1 10^3/ul (0-0.8) H 04/19/17 06:28 Absolute Eos (auto) 0.8 10^3/ul (0-0.6) H 04/19/17 06:28 Absolute Basos (auto) 0.2 10^3/ul (0-0.2) 04/19/17 06:28 Absolute Nucleated RBC 0 10^3/ul 04/19/17 06:28 Neutrophils % 79 % (38-83) 04/17/17 06:32 Band Neutrophils % 2 % (0-8) 04/17/17 06:32 Lymphocytes % 1 % (25-47) L 04/17/17 06:32 Monocytes % 6 % (0-13) 04/17/17 06:32 Eosinophils % 9 % (0-6) H 04/17/17 06:32 Basophils % 2 % (0-2) 04/17/17 06:32 Myelocytes % 1 % (0-1) 04/17/17 06:32 Nucleated RBC % 0 04/19/17 06:28 Normal RBC Morphology Not Reportable 04/17/17 06:32 Hypochromasia 1+ 04/16/17 05:50 Elliptocytes 1+ 04/17/17 06:32 Schistocytes 1+ 04/16/17 05:50 ESR 108 mm/Hr (0-20) H 04/15/17 07:46 Hem Pathologist Commnt 04/16/17 05:50 INR (Anticoag Therapy) 1.44 (0.77-1.02) H 04/19/17 06:28 Sodium 130 mmol/L (133-145) L 04/19/17 06:28 Potassium 3.9 mmol/L (3.5-5.0) 04/19/17 06:28 Chloride 92 mmol/L (101-111) L 04/19/17 06:28 Carbon Dioxide 32 mmol/L (22-32) 04/19/17 06:28 Anion Gap 6 mmol/L (2-11) 04/19/17 06:28 BUN 96 mg/dL (6-24) H 04/23/17 16:11 Creatinine 1.74 mg/dL (0.67-1.17) H 04/23/17 16:11 Est GFR ( Amer) 53.3 (>60) 04/23/17 16:11 Est GFR (Non-Af Amer) 41.4 (>60) 04/23/17 16:11 BUN/Creatinine Ratio 52.6 (8-20) H 04/19/17 06:28 Glucose 108 mg/dL (70-100) H 04/19/17 06:28 POC Glucose (mg/dL) 188 mg/dL (70-100) H 04/24/17 07:51 Lactic Acid 0.5 mmol/L (0.5-2.0) 04/15/17 07:46 Uric Acid 6.1 mg/dL (4.4-7.6) 04/15/17 07:46 Calcium 9.3 mg/dL (8.6-10.3) 04/19/17 06:28 Total Bilirubin 0.90 mg/dL (0.2-1.0) 04/16/17 05:50 AST 45 U/L (13-39) H 04/16/17 05:50 ALT 92 U/L (7-52) H 04/16/17 05:50 Alkaline Phosphatase 178 U/L (34-104) H 04/16/17 05:50 C-Reactive Protein 163.99 mg/L (< 5.00) H 04/16/17 05:50 Total Protein 6.1 g/dL (6.4-8.9) L 04/16/17 05:50 Albumin 2.9 g/dL (3.2-5.2) L 04/16/17 05:50 Globulin 3.2 g/dL (2-4) 04/16/17 05:50 Albumin/Globulin Ratio 0.9 (1-3) L 04/16/17 05:50 TSH 2.05 mcIU/mL (0.34-5.60) 04/16/17 05:50 Urine Color Straw 04/15/17 07:57 Urine Appearance Clear 04/15/17 07:57 Urine pH 6.0 (5-9) 04/15/17 07:57 Ur Specific [place] 1.010 (1.010-1.030) 04/15/17 07:57 Urine Protein 2+(100 mg/dl) (Negative) H 04/15/17 07:57 Urine Ketones Negative (Negative) 04/15/17 07:57 Urine Blood 1+ (Negative) H 04/15/17 07:57 Urine Nitrate Negative (Negative) 04/15/17 07:57 Urine Bilirubin Negative (Negative) 04/15/17 07:57 Urine Urobilinogen Negative (Negative) 04/15/17 07:57 Ur Leukocyte Esterase Negative (Negative) 04/15/17 07:57 Urine WBC (Auto) Absent (Absent) 04/15/17 07:57 Urine RBC (Auto) Trace(0-2/hpf) (Absent) 04/15/17 07:57 Urine Bacteria Absent (Absent) 04/15/17 07:57 Urine Glucose Negative (Negative) 04/15/17 07:57 Vancomycin Trough 13.9 mcg/mL 04/23/17 16:11 Assessment: 51 y.o male s/p I&D of L foot by DR. Mckee 04/19/2017. 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, PICC for technician terminal and repeater IV abx - Rehab at D/C - [place] for D/c from ortho standpoint, follow up within 1 week in May for suture removal, wound check - Continue NWB LLE
--- NOTE | 2017-04-24 12:45 | PN ---
Subjective Date of Service: 04/24/17 Interval History: Patient seen and examined. Sitting up in bed. Well appearing, no SOB, no chest pain, no n/v. States surgical pain is still high but controlled best with the oxycodone. Otherwise no further complaints and no overnight events. States he was able to participate in PT eval this AM without difficulty. Family History: Unchanged from Admission Social History: Unchanged from Admission Past Medical History: Unchanged from Admission Objective Active Medications: Acetaminophen (Tylenol Tab*) 650 mg PO Q4H PRN PRN Reason: FEVER/PAIN Last Admin: 04/15/17 18:57 Dose: 650 mg Al Hydrox/Mg Hydrox/Simethicone (Maalox Plus*) 30 ml PO Q6H PRN PRN Reason: INDIGESTION Last Admin: 04/21/17 20:20 Dose: 30 ml Albuterol (Ventolin 2.5 Mg/3 Ml Neb.Christy*) 2.5 mg INH Q4H PRN PRN Reason: SOB/WHEEZING Last Admin: 04/21/17 17:47 Dose: 2.5 mg Albuterol/Ipratropium (Duoneb (Albuterol 2.5 Mg/Ipratropium 0.5 Mg)) 1 neb INH Q4H GISELLA Last Admin: 04/24/17 10:38 Dose: 1 neb Allopurinol (Zyloprim Tab*) 300 mg PO BID [facility] Last Admin: 04/24/17 07:55 Dose: 300 mg Atorvastatin Calcium (Lipitor*) 40 mg PO DAILY [facility] Last Admin: 04/24/17 07:54 Dose: 40 mg Dextrose (D50w Syringe 50 Ml*) 12.5 gm IV PUSH .FOR FS < 60 - SS PRN PRN Reason: FS < 60 Diltiazem HCl (Cardizem Cd Cap*) 360 mg PO DAILY [facility] Last Admin: 04/24/17 07:55 Dose: 360 mg Docusate Sodium (Colace Cap*) 100 mg PO BID [facility] Last Admin: 04/24/17 07:55 Dose: 100 mg Fluticasone Propionate (Flonase Nasal [place] 50mcg*) 2 spray BOTH NARES DAILY PRN PRN Reason: Allergy Symptoms Vancomycin HCl 500 mg/ Sodium (Chloride) 250 mls @ 166.667 mls/hr IVPB 0600, 1800 [facility] Last Admin: 04/24/17 05:45 Dose: 166.667 mls/hr Insulin Human Isoph/Insulin Regular (Humulin 70/30 (*)) 100 units SUBCUT 0800, 1700 [facility] Last Admin: 04/24/17 08:07 Dose: 100 units Insulin Human Lispro (Humalog*) 0 units SUBCUT ACHS [facility] PRN Reason: Protocol Last Admin: 04/24/17 12:13 Dose: 2 units Lactulose (Lactulose*) 30 ml PO DAILY PRN PRN Reason: CONSTIPATION Stop: 04/28/17 10:37 Last Admin: 04/23/17 11:00 Dose: 30 ml Levothyroxine Sodium (Synthroid Tab*) 200 mcg PO DAILY@0600 [facility] Last Admin: 04/24/17 05:43 Dose: 200 mcg Metolazone (Zaroxolyn Tab*) 5 mg PO DAILY [facility] Last Admin: 04/24/17 07:54 Dose: 5 mg Metoprolol Tartrate (Lopressor Tab*) 25 mg PO BID [facility] Last Admin: 04/24/17 07:55 Dose: 25 mg Mometasone Furoate/Formoterol Fumar (Dulera 200/5 Mdi*) 2 puff INH BID [facility] PRN Reason: Protocol Stop: 04/27/17 21:00 Last Admin: 04/24/17 07:36 Dose: 2 puff Oxycodone HCl (Roxycodone Tab*) 10 mg PO Q6H PRN PRN Reason: PAIN - MODERATE TO SEVERE Last Admin: 04/24/17 05:43 Dose: 10 mg Oxycodone/Acetaminophen (Percocet 5/325 Tab*) 1 tab PO Q4H PRN PRN Reason: PAIN Last Admin: 04/24/17 08:06 Dose: 1 tab Pharmacy Consult (Vancomycin Per Pharmacy*) 1 note FOLLOW UP . PRN PRN Reason: PER PROTOCOL Polyethylene Glycol/Electrolytes (Miralax*) 17 gm PO DAILY [facility] Last Admin: 04/24/17 07:53 Dose: 17 gm Senna (Senokot Tab*) 2 tab PO BEDTIME [facility] Last Admin: 04/23/17 20:10 Dose: 2 tab Spironolactone (Aldactone Tab*) 50 mg PO DAILY [facility] Last Admin: 04/24/17 07:55 Dose: 50 mg Torsemide (Demadex*) 40 mg PO 0900,1600 [facility] Last Admin: 04/24/17 07:54 Dose: 40 mg Warfarin Sodium (Coumadin Tab(*)) 7.5 mg PO DAILY@1700 GISELLA PRN Reason: Protocol Vital Signs - 8 hr 04/24/17 04/24/17 04/24/17 05:43 07:42 07:47 Temperature 98.1 F Pulse Rate 68 64 Respiratory 20 14 16 Rate Blood Pressure 144/62 (mmHg) O2 Sat by Pulse 99 98 Oximetry 04/24/17 04/24/17 04/24/17 07:58 08:06 08:51 Temperature Pulse Rate Respiratory 20 20 20 Rate Blood Pressure (mmHg) O2 Sat by Pulse Oximetry 04/24/17 04/24/17 04/24/17 09:54 10:38 12:14 Temperature 98.3 F Pulse Rate 76 62 Respiratory 18 16 16 Rate Blood Pressure 105/38 (mmHg) O2 Sat by Pulse 99 97 Oximetry 04/24/17 12:17 Temperature Pulse Rate Respiratory Rate Blood Pressure 122/68 (mmHg) O2 Sat by Pulse Oximetry Oxygen Devices in Use Now: Nasal Cannula Appearance: Alert, NAD Eyes: No Scleral Icterus, PERRLA Ears/Nose/Mouth/Throat: Mucous Membranes Moist Neck: NL Appearance and Movements; NL JVP, Trachea Midline Respiratory: Symmetrical Chest Expansion and Respiratory Effort, Clear to Auscultation Cardiovascular: NL Sounds; No Murmurs; No JVD, RRR Extremities: - - less edema on surgical side, mottling improved on the LE Neurological: Alert and Oriented x 3 Nutrition: Taking PO's Result Diagrams: 04/19/17 06:28 04/23/17 16:11 Additional Lab and Data: . Microbiology and Other Data: . Microbiology 04/17/17 13:30 Gram Stain - Final Misc Fluid (See Comment) - Ankle Left Body Fluid Culture - Preliminary MRSA Skin and Soft Tissue MRSA/MSSA (PCR - Final Mrsa Positive S.aureus Positive 04/15/17 07:46 Aerobic Blood Culture - Preliminary Blood Venous No Growth Day 4 Anaerobic Blood Culture - Final MRSA 04/15/17 07:46 Aerobic Blood Culture - Final Blood Venous MRSA Anaerobic Blood Culture - Preliminary No Growth Day 4 Blood MRSA/MSSA (PCR) - Final Mrsa Positive S.aureus Positive 04/18/17 06:26 Aerobic Blood Culture - Preliminary Blood Venous No Growth Day 1 Anaerobic Blood Culture - Preliminary No Growth Day 1 04/18/17 06:26 Aerobic Blood Culture - Preliminary Blood Venous No Growth Day 1 Anaerobic Blood Culture - Preliminary No Growth Day 1 Assess/Plan/Problems-Billing This is a 51 year old male with PMHx of morbid obesity, afib, and DM presenting with sepsis 2/2 MRSA cellulitis/infection of LLE foot wound, being managed on antibiotics and requiring I&D of left foot/ankle, POD4. - Patient Problems (1) Septicemia Code(s): A41.9 - SEPSIS, UNSPECIFIED ORGANISM SNOMED Code(s): 094535242 Comment: - Treating for MRSA - Sepsis resolved - PICC tomorrow - ID following, continue vanco (2) Atrial fibrillation Code(s): I48.91 - UNSPECIFIED ATRIAL FIBRILLATION SNOMED Code(s): 03670458 Comment: - RVR resolved - Continue cardizem CD 360mg and metoprolol - Coumadin tonight 7.5 mg, check INR in AM (3) Chronic respiratory failure Code(s): J96.10 - CHRONIC RESPIRATORY FAILURE, UNSP W HYPOXIA OR HYPERCAPNIA SNOMED Code(s): 39226339 Comment: - 2/2 Obesity, COPD and Hypoventilation syndrome - Duonebs Q4 with PRN albuterol - Added symbicort yesterday - Continue O2@ at 5LNC - Respiratory stable today (4) Morbid obesity Code(s): E66.01 - MORBID (SEVERE) OBESITY DUE TO EXCESS CALORIES SNOMED Code(s ): 945229082 Comment: - BMI 60.8 - Counseled patient on seriously considering weight loss given extensive comorbities (5) CKD (chronic kidney disease) stage 3, GFR 30-59 ml/min Code(s): N18.3 - CHRONIC KIDNEY DISEASE, STAGE 3 (MODERATE) SNOMED Code(s): 825817793 Comment: - Creatinine at 1.74, around baseline - Will recheck tomorrow - Does not appear that vanco dose is driving creat up (6) Diastolic CHF, chronic Code(s): I50.32 - CHRONIC DIASTOLIC (CONGESTIVE) HEART FAILURE SNOMED Code(s) : 634721205 Comment: - 2/2 hx of cardiomyopathy and afib? - Continue metolazone, torsemide, spironolactone, BB - Remains stable with no exacerbation (7) Diabetes mellitus Code(s): E11.9 - TYPE 2 DIABETES MELLITUS WITHOUT COMPLICATIONS SNOMED Code(s) : 41113630 Comment: - Continue carb control diet - Accuchecks AC and HS - Insulin SS for coverage; with 70/30 daily which was increased to 100units BID yesterday - Counseled on diet and high sugars - Slow improvment in BG - Patient needs to move and participate in Pt/OT (8) Left foot infection Code(s): L08.9 - LOCAL INFECTION OF THE SKIN AND SUBCUTANEOUS TISSUE, UNSP SNOMED Code(s): 642971375 Comment: - POD 5, I&D - Continue vanco as per ID - Drain out, dressing changed - Cleared for DC per ortho when rehabv bed available Status and Disposition: Medically optimized for DC to rehab when appropriate bed obtained. Likely [facility] if possible. PICC line tomorrow. Counseling and/or Coordination of Care Minutes: Coordinated with patient, and staff.
[2017-04-24] MEDS: Warfarin TAB(*) 7.5 MG PO SCH (15:32)
--- NOTE | 2017-04-24 15:58 | CONS ---
CONSULTATION REPORT: DATE OF CONSULT: 04/17/17 ADDENDUM: REVIEW OF SYSTEMS: A 14-point review of systems was negative except as noted in the history of present illness. FAMILY HISTORY: There are no recurrent infections. SOCIAL HISTORY: He lives with his . He is essentially homebound. No travel. PHYSICAL EXAM: His vitals are stable. He is afebrile. General: He is awake, alert, oriented x3. HEENT: There is no conjunctival hemorrhage. Oropharynx without lesions. Neck is supple. Lymph nodes: There is no inguinal, axillary , or epitrochlear lymphadenopathy. Heart is regular rate and rhythm. Lungs are clear to auscultation bilaterally. Abdomen is obese. There is a large umbilical hernia, which is nontender. There are bowel sounds present. [id number]/[facility] #: [id number] MTDD
[2017-04-24] MEDS: Albuterol 2.5 MG/3 ML NEB.SOL* (0.083%) INH PRN (20:22)
[2017-04-24] MEDS: Senna TAB PO SCH (21:38)
[2017-04-25] MEDS: Albuterol 2.5 MG/3 ML NEB.SOL* (0.083%) INH PRN ×2 (02:14→08:32)
[2017-04-25] MEDS: oxyCODONE TAB* 5 MG TAB PO PRN ×2 (02:31→17:11)
[2017-04-25] MEDS: Levothyroxine TAB* 100 MCG TAB PO SCH (05:33)
[2017-04-25] MEDS: Vancomycin(*) 500 MG in NS 0.9% 250 ML* 250 ML IVPB SCH ×2 (05:34→17:10)
[2017-04-25 06:48] LABS: Hematocrit 31 % (42-52); Hemoglobin 10.1 g/dl (14.0-18.0); Mean Corpuscular HGB Conc 32 g/dl (31-36); Mean Corpuscular Hemoglobin 27 pg (27-31); Mean Corpuscular Volume 84 fL (80-94); Mean Platelet Volume 7 um3 (7.4-10.4); Red Cell Distribution Width 18 % (10.5-15); White Blood Count 14.7 10^3/ul (3.5-10.8)
[2017-04-25 07:03] LABS: BUN/Creatinine Ratio 55.2 (8-20); Calcium 9.2 mg/dL (8.6-10.3)
[2017-04-25 07:17] LABS: Add Diff/Slide Review? Slide Review Added; Comments Flag Yes
[2017-04-25 08:11] LABS: Eosinophils % 2 % (0-6); Hypochromasia 1+; Immature Granulocytes 4 % (0-9); Myelocytes % 3 % (0-1); Neutrophil % 86 % (38-83)
[2017-04-25 08:12] LABS: Polychromasia 1+
[2017-04-25] MEDS: Mometasone/Formoter 200/5 MDI INH SCH ×2 (08:31→19:57)
[2017-04-25] MEDS: Diltiazem CD CAP* 180 MG PO SCH (08:51)
[2017-04-25] MEDS: Docusate CAP* 100 MG PO SCH ×2 (08:51→21:29)
[2017-04-25] MEDS: Metoprolol Tartrate TAB* 25 MG PO SCH ×2 (08:51→21:29)
[2017-04-25] MEDS: Metolazone TAB* 5 MG PO SCH (08:51)
[2017-04-25] MEDS: Spironolactone TAB* 25 MG PO SCH (08:51)
[2017-04-25] MEDS: Atorvastatin* 40 MG TAB PO SCH (08:52)
[2017-04-25] MEDS: Allopurinol TAB* 300 MG PO SCH ×2 (08:52→21:29)
[2017-04-25] MEDS: Polyethylene Glycol 3350* 17 GM PACKET PO SCH (08:53)
[2017-04-25] MEDS: Insulin ISOPH/REG 70/30 (*) 1 UNITS UNIT SUBCUT SCH ×2 (08:53→17:10)
[2017-04-25] MEDS: Insulin LISPRO* 1 UNITS UNIT SUBCUT SCH ×6 (08:53→21:47)
[2017-04-25] MEDS: Torsemide TAB* 20 MG PO SCH ×2 (09:44→17:11)
--- NOTE | 2017-04-25 10:27 | PN ---
Subjective Date of Service: 04/25/17 Interval History: Pt is feeling ok. He states his foot is quite painful even at rest. He has not had the dressing changed in a couple days. He has not had a BM in the last couple days. Family History: Unchanged from Admission Social History: Unchanged from Admission Past Medical History: Unchanged from Admission Objective Active Medications: Acetaminophen (Tylenol Tab*) 650 mg PO Q4H PRN PRN Reason: FEVER/PAIN Last Admin: 04/15/17 18:57 Dose: 650 mg Al Hydrox/Mg Hydrox/Simethicone (Maalox Plus*) 30 ml PO Q6H PRN PRN Reason: INDIGESTION Last Admin: 04/21/17 20:20 Dose: 30 ml Albuterol (Ventolin 2.5 Mg/3 Ml Neb.Christy*) 2.5 mg INH Q4H PRN PRN Reason: SOB/WHEEZING Last Admin: 04/25/17 08:32 Dose: 2.5 mg Allopurinol (Zyloprim Tab*) 300 mg PO BID [facility] Last Admin: 04/25/17 08:52 Dose: 300 mg Atorvastatin Calcium (Lipitor*) 40 mg PO DAILY [facility] Last Admin: 04/25/17 08:52 Dose: 40 mg Dextrose (D50w Syringe 50 Ml*) 12.5 gm IV PUSH .FOR FS < 60 - SS PRN PRN Reason: FS < 60 Diltiazem HCl (Cardizem Cd Cap*) 360 mg PO DAILY [facility] Last Admin: 04/25/17 08:51 Dose: 360 mg Docusate Sodium (Colace Cap*) 100 mg PO BID [facility] Last Admin: 04/25/17 08:51 Dose: 100 mg Fluticasone Propionate (Flonase Nasal [place] 50mcg*) 2 spray BOTH NARES DAILY PRN PRN Reason: Allergy Symptoms Vancomycin HCl 500 mg/ Sodium (Chloride) 250 mls @ 166.667 mls/hr IVPB 0600, 1800 [facility] Last Admin: 04/25/17 05:34 Dose: 166.667 mls/hr Insulin Human Isoph/Insulin Regular (Humulin 70/30 (*)) 100 units SUBCUT 0800, 1700 [facility] Last Admin: 04/25/17 08:53 Dose: 100 units Insulin Human Lispro (Humalog*) 0 units SUBCUT ACHS [facility] PRN Reason: Protocol Last Admin: 04/25/17 08:53 Dose: 1 units Lactulose (Lactulose*) 30 ml PO DAILY PRN PRN Reason: CONSTIPATION Stop: 04/28/17 10:37 Last Admin: 04/23/17 11:00 Dose: 30 ml Levothyroxine Sodium (Synthroid Tab*) 200 mcg PO DAILY@0600 [facility] Last Admin: 04/25/17 05:33 Dose: 200 mcg Metolazone (Zaroxolyn Tab*) 5 mg PO DAILY [facility] Last Admin: 04/25/17 08:51 Dose: 5 mg Metoprolol Tartrate (Lopressor Tab*) 25 mg PO BID [facility] Last Admin: 04/25/17 08:51 Dose: 25 mg Mometasone Furoate/Formoterol Fumar (Dulera 200/5 Mdi*) 2 puff INH BID [facility] PRN Reason: Protocol Stop: 04/27/17 21:00 Last Admin: 04/25/17 08:31 Dose: 2 puff Oxycodone HCl (Roxycodone Tab*) 10 mg PO Q6H PRN PRN Reason: PAIN - MODERATE TO SEVERE Last Admin: 04/25/17 02:31 Dose: 10 mg Oxycodone/Acetaminophen (Percocet 5/325 Tab*) 1 tab PO Q4H PRN PRN Reason: PAIN Last Admin: 04/24/17 08:06 Dose: 1 tab Pharmacy Consult (Vancomycin Per Pharmacy*) 1 note FOLLOW UP . PRN PRN Reason: PER PROTOCOL Pharmacy Profile Note (Vancomycin Trough Check) 1 note FOLLOW UP ONCE ONE Stop: 04/26/17 05:31 Polyethylene Glycol/Electrolytes (Miralax*) 17 gm PO DAILY [facility] Last Admin: 04/25/17 08:53 Dose: 17 gm Senna (Senokot Tab*) 2 tab PO BEDTIME [facility] Last Admin: 04/24/17 21:38 Dose: 2 tab Spironolactone (Aldactone Tab*) 50 mg PO DAILY [facility] Last Admin: 04/25/17 08:51 Dose: 50 mg Torsemide (Demadex*) 40 mg PO 0900,1600 [facility] Last Admin: 04/25/17 09:44 Dose: 40 mg Warfarin Sodium (Coumadin Tab(*)) 7.5 mg PO DAILY@1700 [facility] PRN Reason: Protocol Last Admin: 04/24/17 15:32 Dose: 7.5 mg Vital Signs - 8 hr 04/25/17 04/25/17 04/25/17 02:31 03:37 05:29 Temperature 97.5 F Pulse Rate 67 Respiratory 20 16 18 Rate Blood Pressure 134/59 (mmHg) O2 Sat by Pulse 99 Oximetry 04/25/17 04/25/17 04/25/17 07:44 08:00 08:34 Temperature 98.2 F Pulse Rate 75 Respiratory 18 16 18 Rate Blood Pressure 142/65 (mmHg) O2 Sat by Pulse 99 96 Oximetry Oxygen Devices in Use Now: Nasal Cannula - 5L Appearance: Super morbidly obese male sitting up in bed, NAD Eyes: No Scleral Icterus Ears/Nose/Mouth/Throat: Mucous Membranes Moist Respiratory: Symmetrical Chest Expansion and Respiratory Effort, Clear to Auscultation - anteriorly Cardiovascular: NL Sounds; No Murmurs; No JVD, RRR, - - 1+ LE edema Abdominal: NL Sounds; No Tenderness; No Distention - massively obese Extremities: No Clubbing, Cyanosis Skin: No Nodules or Sclerosis, - - L foot dressing not removed by myself as it is unclear at this time who is changing the dressing-will confirm dressing orders with orthopedics Neurological: Alert and Oriented x 3 Result Diagrams: 04/25/17 06:27 04/25/17 06:27 Additional Lab and Data: . Microbiology and Other Data: . Microbiology 04/17/17 13:30 Gram Stain - Final Misc Fluid (See Comment) - Ankle Left Body Fluid Culture - Preliminary MRSA Skin and Soft Tissue MRSA/MSSA (PCR - Final Mrsa Positive S.aureus Positive 04/15/17 07:46 Aerobic Blood Culture - Preliminary Blood Venous No Growth Day 4 Anaerobic Blood Culture - Final MRSA 04/15/17 07:46 Aerobic Blood Culture - Final Blood Venous MRSA Anaerobic Blood Culture - Preliminary No Growth Day 4 Blood MRSA/MSSA (PCR) - Final Mrsa Positive S.aureus Positive 04/18/17 06:26 Aerobic Blood Culture - Preliminary Blood Venous No Growth Day 1 Anaerobic Blood Culture - Preliminary No Growth Day 1 04/18/17 06:26 Aerobic Blood Culture - Preliminary Blood Venous No Growth Day 1 Anaerobic Blood Culture - Preliminary No Growth Day 1 Assess/Plan/Problems-Billing Mr Anderson is a 51 year old male with a PMHx of morbid obesity, afib, and DM presenting with sepsis 2/2 MRSA cellulitis/infection of LLE foot wound, being managed on antibiotics and requiring I&D of left foot/ankle. - Patient Problems (1) Cellulitis of left lower extremity Current Visit: Yes Status: Acute Code(s): L03.116 - CELLULITIS OF LEFT LOWER LIMB SNOMED Code(s): 647658018 Comment: The patient presented with L foot/ankle cellulitis and abscess. Will start daily dry sterile dressing changes and pt will need to follow up with Dr. Mckee early May. The patient is s/p I&D of a L ankle abscess and L ankle arthrotomy, exploration and drainage on 04/19/17. Plan is for [facility] intern[facility] IV Abx. Today is D#11/01. (2) CKD (chronic kidney disease) stage 3, GFR 30-59 ml/min Current Visit: Yes Status: Acute Code(s): N18.3 - CHRONIC KIDNEY DISEASE, STAGE 3 (MODERATE) SNOMED Code(s): 725286255 Comment: Creatinine is stable and based on creatinine clearance he has stage III CKD however he is on a very small dose of vanco to be therapeutic his creatinine clearance may be overestimated. Given his CKD there is concern in inserting a PICC line in case down the road he would need dialysis however given the severe infection the benefits of the PICC and halfway IV Abx outweigh the risks of the PICC. (3) Diabetes mellitus Current Visit: Yes Status: Acute Code(s): E11.9 - TYPE 2 DIABETES MELLITUS WITHOUT COMPLICATIONS SNOMED Code(s): 65770649 Comment: Sugars are still not controlled. Will continue 70/30 100units SQ BID and add lispro 5 units with each meal standing. (4) Chronic respiratory failure Current Visit: Yes Status: Acute Code(s): J96.10 - CHRONIC RESPIRATORY FAILURE, UNSP W HYPOXIA OR HYPERCAPNIA SNOMED Code(s): 63840848 Comment: Pt with chronic hypoxic respiratory failure secondary to COPD and obesity hypoventilation syndrome. Continue supplemental O2. Respiratory status is stable. (5) Diastolic CHF, chronic Current Visit: Yes Status: Acute Code(s): I50.32 - CHRONIC DIASTOLIC ( CONGESTIVE) HEART FAILURE SNOMED Code(s): 126358118 Comment: Pt appears euvolemic. Continue metolazone, torsemide and spironolactone. (6) Morbid obesity Current Visit: Yes Status: Acute Code(s): E66.01 - MORBID (SEVERE) OBESITY DUE TO EXCESS CALORIES SNOMED Code(s): 619758346 Comment: Encourage diet modification. (7) DVT prophylaxis Current Visit: Yes Status: Acute Priority: Medium Onset Date: 06/10/14 Code(s): ZBP0212 - SNOMED Code(s): 122416104 Comment: Subtherapeutic INR-add SQ heparin until INR therapeutic (8) Full code status Current Visit: Yes Status: Acute Priority: Medium Onset Date: 06/10/14 Code(s): Z78.9 - OTHER SPECIFIED HEALTH STATUS SNOMED Code(s): 416339728 Status and Disposition: Medically optimized for DC to rehab when appropriate bed obtained. Likely [facility] if possible. PICC line tomorrow.
--- NOTE | 2017-04-25 10:34 | PN ---
Progress Note - Progress Note Date of Service: 04/25/17 SOAP: Subjective: []Patient seen at bedside. He is comfortable with no complaint of LLE pain. Denies CP, SOB, dizziness, nausea. Objective: []General: Appears comfortable laying in bed. Well appearing, NAD. LLE: Dressing in place, CDI. Patient confirms minimal sensation of all 5 left toes and sensation intact above dressing. Brisk capillary refill of toes. Able to wiggle toes, ankle DF/PF restricted by dressing. Vital Signs Temp 98.2 F 04/25/17 07:44 Pulse 75 04/25/17 08:34 Resp 18 04/25/17 08:34 BP 142/65 04/25/17 07:44 Pulse Ox 96 04/25/17 08:34 Intake & Output 04/24/17 04/25/17 04/25/17 18:59 06:59 18:59 Intake Total 1240 1185 610 Output Total 1700 3075 925 Balance -460 -1890 -315 Intake: IV Fluids 250 40 NS (0.9%) 40 vancomycin 250 IVPB 10 265 250 NS (0.9%) 10 vancomycin 265 250 Oral 980 880 360 Output: Urine 1700 2725 925 Wy[place] 350 Other: Estimated Void Small Medium # Bowel Movements 0 # Voids 2 1 2 Laboratory Last Values WBC 14.7 10^3/ul (3.5-10.8) H 04/25/17 06:27 RBC 3.70 10^6/ul (4.0-5.4) L 04/25/17 06:27 Hgb 10.1 g/dl (14.0-18.0) L 04/25/17 06:27 Hct 31 % (42-52) L 04/25/17 06:27 MCV 84 fL (80-94) 04/25/17 06:27 MCH 27 pg (27-31) 04/25/17 06:27 MCHC 32 g/dl (31-36) 04/25/17 06:27 RDW 18 % (10.5-15) H 04/25/17 06:27 Plt Count 446 10^3/ul (150-450) 04/25/17 06:27 MPV 7 um3 (7.4-10.4) L 04/25/17 06:27 Immature Gran % (Auto) 3 % (0-9) 04/17/17 06:32 Neut % (Auto) 83.9 % (38-83) H 04/25/17 06:27 Lymph % (Auto) 4.6 % (25-47) L 04/25/17 06:27 [place] % (Auto) 5.9 % (1-9) 04/25/17 06:27 Eos % (Auto) 5.2 % (0-6) 04/25/17 06:27 Baso % (Auto) 0.4 % (0-2) 04/25/17 06:27 Absolute Neuts (auto) 12.3 10^3/ul (1.5-7.7) H 04/25/17 06:27 Absolute Lymphs (auto) 0.7 10^3/ul (1.0-4.8) L 04/25/17 06:27 Absolute Monos (auto) 0.9 10^3/ul (0-0.8) H 04/25/17 06:27 Absolute Eos (auto) 0.8 10^3/ul (0-0.6) H 04/25/17 06:27 Absolute Basos (auto) 0.1 10^3/ul (0-0.2) 04/25/17 06:27 Absolute Nucleated RBC 0.01 10^3/ul 04/25/17 06:27 Immature Gran % 4 % (0-9) 04/25/17 06:27 Neutrophils % 86 % (38-83) H 04/25/17 06:27 Band Neutrophils % 1 % (0-8) 04/25/17 06:27 Lymphocytes % 2 % (25-47) L 04/25/17 06:27 Monocytes % 6 % (0-13) 04/25/17 06:27 Eosinophils % 2 % (0-6) 04/25/17 06:27 Basophils % 2 % (0-2) 04/17/17 06:32 Myelocytes % 3 % (0-1) H 04/25/17 06:27 Nucleated RBC % 0.1 04/25/17 06:27 Nucleated RBCs/100 WBC 1 (0-0) H 04/25/17 06:27 Normal RBC Morphology Not Reportable 04/25/17 06:27 Polychromasia 1+ 04/25/17 06:27 Hypochromasia 1+ 04/25/17 06:27 Elliptocytes 1+ 04/17/17 06:32 Schistocytes 1+ 04/16/17 05:50 ESR 108 mm/Hr (0-20) H 04/15/17 07:46 Hem Pathologist Commnt 04/16/17 05:50 INR (Anticoag Therapy) 1.14 (0.77-1.02) H 04/25/17 06:27 Sodium 131 mmol/L (133-145) L 04/25/17 06:27 Potassium 4.0 mmol/L (3.5-5.0) 04/25/17 06:27 Chloride 92 mmol/L (101-111) L 04/25/17 06:27 Carbon Dioxide 35 mmol/L (22-32) H 04/25/17 06:27 Anion Gap 4 mmol/L (2-11) 04/25/17 06:27 BUN 95 mg/dL (6-24) H 04/25/17 06:27 Creatinine 1.72 mg/dL (0.67-1.17) H 04/25/17 06:27 Est GFR ( Amer) 54.0 (>60) 04/25/17 06:27 Est GFR (Non-Af Amer) 42.0 (>60) 04/25/17 06:27 BUN/Creatinine Ratio 55.2 (8-20) H 04/25/17 06:27 Glucose 149 mg/dL (70-100) H 04/25/17 06:27 POC Glucose (mg/dL) 140 mg/dL (70-100) H 04/25/17 07:38 Lactic Acid 0.5 mmol/L (0.5-2.0) 04/15/17 07:46 Uric Acid 6.1 mg/dL (4.4-7.6) 04/15/17 07:46 Calcium 9.2 mg/dL (8.6-10.3) 04/25/17 06:27 Total Bilirubin 0.90 mg/dL (0.2-1.0) 04/16/17 05:50 AST 45 U/L (13-39) H 04/16/17 05:50 ALT 92 U/L (7-52) H 04/16/17 05:50 Alkaline Phosphatase 178 U/L (34-104) H 04/16/17 05:50 C-Reactive Protein 163.99 mg/L (< 5.00) H 04/16/17 05:50 Total Protein 6.1 g/dL (6.4-8.9) L 04/16/17 05:50 Albumin 2.9 g/dL (3.2-5.2) L 04/16/17 05:50 Globulin 3.2 g/dL (2-4) 04/16/17 05:50 Albumin/Globulin Ratio 0.9 (1-3) L 04/16/17 05:50 TSH 2.05 mcIU/mL (0.34-5.60) 04/16/17 05:50 Urine Color Straw 04/15/17 07:57 Urine Appearance Clear 04/15/17 07:57 Urine pH 6.0 (5-9) 04/15/17 07:57 Ur Specific [place] 1.010 (1.010-1.030) 04/15/17 07:57 Urine Protein 2+(100 mg/dl) (Negative) H 04/15/17 07:57 Urine Ketones Negative (Negative) 04/15/17 07:57 Urine Blood 1+ (Negative) H 04/15/17 07:57 Urine Nitrate Negative (Negative) 04/15/17 07:57 Urine Bilirubin Negative (Negative) 04/15/17 07:57 Urine Urobilinogen Negative (Negative) 04/15/17 07:57 Ur Leukocyte Esterase Negative (Negative) 04/15/17 07:57 Urine WBC (Auto) Absent (Absent) 04/15/17 07:57 Urine RBC (Auto) Trace(0-2/hpf) (Absent) 04/15/17 07:57 Urine Bacteria Absent (Absent) 04/15/17 07:57 Urine Glucose Negative (Negative) 04/15/17 07:57 Vancomycin Trough 13.9 mcg/mL 04/23/17 16:11 Assessment: []51 y.o male s/p I&D of L foot by Dr. Mckee 04/19/2017. Plan: []Daily Dry sterile dressing change NWB LLE DC to [facility] bed available
--- NOTE | 2017-04-25 13:06 | RAD ---
INDICATION: Left-sided PICC catheter COMPARISON: March 04, 2017 TECHNIQUE: An AP portable view obtained at 1228 hours is submitted. FINDINGS: Bones/Soft Tissues: There are no acute bony findings. There is a left-sided PICC catheter which can be traced to the within 1 to 2 cm medial of the clavicular head. The tip of the catheter is not and from due to technique. Cardiomediastinal: The cardiac silhouette is enlarged. The central pulmonary vessels and interstitium are prominent consistent with moderate vascular congestion Lungs: There are no infiltrates. The sensitivity in detecting infiltrate is diminished given the diffuse interstitial change Pleura: There are no significant effusions. Other: None IMPRESSION: The tip of the left-sided PICC catheter is clearly delineated due to technique. Moderate pulmonary vascular congestion
--- NOTE | 2017-04-25 14:05 | RAD ---
INDICATION: Suspect catheter placement COMPARISON: Chest x-ray same date TECHNIQUE: An AP portable view obtained at 1345 hours is submitted. FINDINGS: Bones/Soft Tissues: There are no acute bony findings. There is faint visualization of PICC catheter which is now confirmed to terminate in the superior vena cava. Cardiomediastinal: Enlarged correct silhouette with moderate interstitial congestion. Lungs: There are no infiltrates. Pleura: There are no pleural effusions. Other: None IMPRESSION: MODERATE PULMONARY INTERSTITIAL CONGESTION. PICC CATHETER IN APPROPRIATE POSITION
[2017-04-25] MEDS: Warfarin TAB(*) 7.5 MG PO SCH (17:11)
[2017-04-25] MEDS: Senna TAB PO SCH (21:29)
[2017-04-25] MEDS: oxyCODONE/Acetamin 5/325 MG* TAB PO PRN (21:29)
[2017-04-26] MEDS: oxyCODONE TAB* 5 MG TAB PO PRN ×4 (03:23→20:54)
[2017-04-26] MEDS ORDERED: Vancomycin Trough Check NOTE FOLLOW UP ONE (05:30)
[2017-04-26] MEDS: Levothyroxine TAB* 100 MCG TAB PO SCH (05:48)
[2017-04-26 06:38] LABS: EGFR African American 62.2 (>60); EGFR Non-African American 48.4 (>60)
[2017-04-26] MEDS: Vancomycin(*) 500 MG in NS 0.9% 250 ML* 250 ML IVPB SCH (07:09)
[2017-04-26] MEDS: Polyethylene Glycol 3350* 17 GM PACKET PO SCH (08:26)
[2017-04-26] MEDS: Torsemide TAB* 20 MG PO SCH ×2 (08:26→16:19)
[2017-04-26] MEDS: Insulin LISPRO* 1 UNITS UNIT SUBCUT SCH ×7 (08:27→20:52)
[2017-04-26] MEDS: Allopurinol TAB* 300 MG PO SCH ×2 (08:27→20:53)
[2017-04-26] MEDS: Spironolactone TAB* 25 MG PO SCH (08:27)
[2017-04-26] MEDS: Metoprolol Tartrate TAB* 25 MG PO SCH ×2 (08:27→20:53)
[2017-04-26] MEDS: Atorvastatin* 40 MG TAB PO SCH (08:27)
[2017-04-26] MEDS: Metolazone TAB* 5 MG PO SCH (08:27)
[2017-04-26] MEDS: Docusate CAP* 100 MG PO SCH ×2 (08:27→20:55)
[2017-04-26] MEDS: Diltiazem CD CAP* 180 MG PO SCH (08:27)
[2017-04-26] MEDS: Insulin ISOPH/REG 70/30 (*) 1 UNITS UNIT SUBCUT SCH ×2 (08:28→17:47)
[2017-04-26] MEDS: Mometasone/Formoter 200/5 MDI INH SCH ×2 (09:02→19:38)
--- NOTE | 2017-04-26 12:30 | PN ---
Subjective Date of Service: 04/26/17 Interval History: Pt is feeling ok. He states his L foot is quite painful. He did not sleep well last night due to pain in his foot. He states he had 3 BMs so far today after taking miralax. He denies any SOB or other complaints. Family History: Unchanged from Admission Social History: Unchanged from Admission Past Medical History: Unchanged from Admission Objective Active Medications: Acetaminophen (Tylenol Tab*) 650 mg PO Q4H PRN PRN Reason: FEVER/PAIN Last Admin: 04/15/17 18:57 Dose: 650 mg Al Hydrox/Mg Hydrox/Simethicone (Maalox Plus*) 30 ml PO Q6H PRN PRN Reason: INDIGESTION Last Admin: 04/21/17 20:20 Dose: 30 ml Albuterol (Ventolin 2.5 Mg/3 Ml Neb.Christy*) 2.5 mg INH Q4H PRN PRN Reason: SOB/WHEEZING Last Admin: 04/25/17 08:32 Dose: 2.5 mg Allopurinol (Zyloprim Tab*) 300 mg PO BID COUNTS INCLUDE 234 BEDS AT THE [facility] Last Admin: 04/26/17 08:27 Dose: 300 mg Atorvastatin Calcium (Lipitor*) 40 mg PO DAILY COUNTS INCLUDE 234 BEDS AT THE [facility] Last Admin: 04/26/17 08:27 Dose: 40 mg Dextrose (D50w Syringe 50 Ml*) 12.5 gm IV PUSH .FOR FS < 60 - SS PRN PRN Reason: FS < 60 Diltiazem HCl (Cardizem Cd Cap*) 360 mg PO DAILY COUNTS INCLUDE 234 BEDS AT THE [facility] Last Admin: 04/26/17 08:27 Dose: 360 mg Docusate Sodium (Colace Cap*) 100 mg PO BID COUNTS INCLUDE 234 BEDS AT THE [facility] Last Admin: 04/26/17 08:27 Dose: 100 mg Fluticasone Propionate (Flonase Nasal [place] 50mcg*) 2 spray BOTH NARES DAILY PRN PRN Reason: Allergy Symptoms Heparin Sodium (Porcine) (Heparin Flush Picc/Ml/Cvc(*)) 1 ml FLUSH 0600,1800 COUNTS INCLUDE 234 BEDS AT THE [facility] PRN Reason: Protocol Last Admin: 04/26/17 08:29 Dose: Not Given Vancomycin HCl 750 mg/ Sodium (Chloride) 250 mls @ 166.667 mls/hr IVPB Q12H COUNTS INCLUDE 234 BEDS AT THE [facility] Insulin Human Isoph/Insulin Regular (Humulin 70/30 (*)) 100 units SUBCUT 0800, 1700 COUNTS INCLUDE 234 BEDS AT THE [facility] Last Admin: 04/26/17 08:28 Dose: 100 units Insulin Human Lispro (Humalog*) 0 units SUBCUT ACHS COUNTS INCLUDE 234 BEDS AT THE [facility] PRN Reason: Protocol Last Admin: 04/26/17 08:28 Dose: 2 units Insulin Human Lispro (Humalog*) 10 units SUBCUT AC COUNTS INCLUDE 234 BEDS AT THE [facility] Lactulose (Lactulose*) 30 ml PO DAILY PRN PRN Reason: CONSTIPATION Stop: 04/28/17 10:37 Last Admin: 04/23/17 11:00 Dose: 30 ml Levothyroxine Sodium (Synthroid Tab*) 200 mcg PO DAILY@0600 COUNTS INCLUDE 234 BEDS AT THE [facility] Last Admin: 04/26/17 05:48 Dose: 200 mcg Metolazone (Zaroxolyn Tab*) 5 mg PO DAILY COUNTS INCLUDE 234 BEDS AT THE [facility] Last Admin: 04/26/17 08:27 Dose: 5 mg Metoprolol Tartrate (Lopressor Tab*) 25 mg PO BID COUNTS INCLUDE 234 BEDS AT THE [facility] Last Admin: 04/26/17 08:27 Dose: 25 mg Mometasone Furoate/Formoterol Fumar (Dulera 200/5 Mdi*) 2 puff INH BID COUNTS INCLUDE 234 BEDS AT THE [facility] PRN Reason: Protocol Stop: 04/27/17 21:00 Last Admin: 04/26/17 09:02 Dose: 2 puff Oxycodone HCl (Roxycodone Tab*) 10 mg PO Q6H PRN PRN Reason: PAIN - MODERATE TO SEVERE Last Admin: 04/26/17 10:11 Dose: 10 mg Oxycodone/Acetaminophen (Percocet 5/325 Tab*) 1 tab PO Q4H PRN PRN Reason: PAIN Last Admin: 04/25/17 21:29 Dose: 1 tab Pharmacy Consult (Vancomycin Per Pharmacy*) 1 note FOLLOW UP . PRN PRN Reason: PER PROTOCOL Pharmacy Profile Note (Vancomycin Trough Check) 1 note FOLLOW UP ONCE ONE Stop: 04/28/17 06:01 Polyethylene Glycol/Electrolytes (Miralax*) 17 gm PO DAILY COUNTS INCLUDE 234 BEDS AT THE [facility] Last Admin: 04/26/17 08:26 Dose: 17 gm Senna (Senokot Tab*) 2 tab PO BEDTIME COUNTS INCLUDE 234 BEDS AT THE [facility] Last Admin: 04/25/17 21:29 Dose: 2 tab Spironolactone (Aldactone Tab*) 50 mg PO DAILY COUNTS INCLUDE 234 BEDS AT THE [facility] Last Admin: 04/26/17 08:27 Dose: 50 mg Torsemide (Demadex*) 40 mg PO 0900,1600 COUNTS INCLUDE 234 BEDS AT THE [facility] Last Admin: 04/26/17 08:26 Dose: 40 mg Warfarin Sodium (Coumadin Tab(*)) 7.5 mg PO DAILY@1700 [facility] PRN Reason: Protocol Last Admin: 04/25/17 17:11 Dose: 7.5 mg Vital Signs - 8 hr 04/26/17 04/26/17 04/26/17 05:35 07:26 08:39 Temperature 97.8 F Pulse Rate 72 Respiratory 18 19 18 Rate Blood Pressure 127/58 (mmHg) O2 Sat by Pulse 99 Oximetry 04/26/17 04/26/17 04/26/17 09:04 10:11 12:16 Temperature Pulse Rate 76 Respiratory 16 18 18 Rate Blood Pressure (mmHg) O2 Sat by Pulse 96 Oximetry Oxygen Devices in Use Now: Nasal Cannula Appearance: Super morbidly obese male sitting up in bed, NAD Eyes: No Scleral Icterus Ears/Nose/Mouth/Throat: Mucous Membranes Moist Respiratory: Symmetrical Chest Expansion and Respiratory Effort, Clear to Auscultation - anteriorly Cardiovascular: NL Sounds; No Murmurs; No JVD, RRR, No Edema Abdominal: NL Sounds; No Tenderness; No Distention Extremities: No Clubbing, Cyanosis Skin: No Nodules or Sclerosis, - - per nursing pt's L foot is looking healthy, small area where drain was with slight amount of drainage Neurological: Alert and Oriented x 3 Result Diagrams: 04/25/17 06:27 04/26/17 05:50 Additional Lab and Data: . Microbiology and Other Data: . Microbiology 04/17/17 13:30 Gram Stain - Final Misc Fluid (See Comment) - Ankle Left Body Fluid Culture - Preliminary MRSA Skin and Soft Tissue MRSA/MSSA (PCR - Final Mrsa Positive S.aureus Positive 04/15/17 07:46 Aerobic Blood Culture - Preliminary Blood Venous No Growth Day 4 Anaerobic Blood Culture - Final MRSA 04/15/17 07:46 Aerobic Blood Culture - Final Blood Venous MRSA Anaerobic Blood Culture - Preliminary No Growth Day 4 Blood MRSA/MSSA (PCR) - Final Mrsa Positive S.aureus Positive 04/18/17 06:26 Aerobic Blood Culture - Preliminary Blood Venous No Growth Day 1 Anaerobic Blood Culture - Preliminary No Growth Day 1 04/18/17 06:26 Aerobic Blood Culture - Preliminary Blood Venous No Growth Day 1 Anaerobic Blood Culture - Preliminary No Growth Day 1 Assess/Plan/Problems-Billing Mr Anderson is a 51 year old male with a PMHx of morbid obesity, afib, and DM presenting with sepsis 2/2 MRSA cellulitis/infection of LLE foot wound, being managed on antibiotics and requiring I&D of left foot/ankle. - Patient Problems (1) Cellulitis of left lower extremity Current Visit: Yes Status: Acute Code(s): L03.116 - CELLULITIS OF LEFT LOWER LIMB SNOMED Code(s): 909456649 Comment: The patient presented with L foot/ankle cellulitis and abscess. Continue daily dry sterile dressing changes and pt will need to follow up with Dr. Mckee early May. The patient is s/p I&D of a L ankle abscess and L ankle arthrotomy, exploration and drainage on 04/19/17. Plan is for exterminator termite IV Abx. Today is D#12/01. Looking at [facility] vs [facility] for STR. (2) CKD (chronic kidney disease) stage 3, GFR 30-59 ml/min Current Visit: Yes Status: Acute Code(s): N18.3 - CHRONIC KIDNEY DISEASE, STAGE 3 (MODERATE) SNOMED Code(s): 166738905 Comment: Creatinine is stable. (3) Diabetes mellitus Current Visit: Yes Status: Acute Code(s): E11.9 - TYPE 2 DIABETES MELLITUS WITHOUT COMPLICATIONS SNOMED Code(s): 47671488 Comment: Sugars are still not controlled. Will continue 70/30 100units SQ BID and increase lispro to 10 units with each meal standing in addition to sliding scale. (4) Chronic respiratory failure Current Visit: Yes Status: Acute Code(s): J96.10 - CHRONIC RESPIRATORY FAILURE, UNSP W HYPOXIA OR HYPERCAPNIA SNOMED Code(s): 15938352 Comment: Pt with chronic hypoxic respiratory failure secondary to COPD and obesity hypoventilation syndrome. Continue supplemental O2. Respiratory status is stable. (5) Diastolic CHF, chronic Current Visit: Yes Status: Acute Code(s): I50.32 - CHRONIC DIASTOLIC ( CONGESTIVE) HEART FAILURE SNOMED Code(s): 273476847 Comment: Pt appears euvolemic. Continue metolazone, torsemide and spironolactone. (6) Morbid obesity Current Visit: Yes Status: Acute Code(s): E66.01 - MORBID (SEVERE) OBESITY DUE TO EXCESS CALORIES SNOMED Code(s): 167481238 Comment: Encourage diet modification. (7) DVT prophylaxis Current Visit: Yes Status: Acute Priority: Medium Onset Date: 06/10/14 Code(s): XZV9469 - SNOMED Code(s): 187509827 Comment: Subtherapeutic INR-add SQ heparin until INR therapeutic (8) Full code status Current Visit: Yes Status: Acute Priority: Medium Onset Date: 06/10/14 Code(s): Z78.9 - OTHER SPECIFIED HEALTH STATUS SNOMED Code(s): 503721588 Status and Disposition: Medically optimized for DC to rehab when appropriate bed obtained. Likely [facility] if possible. PICC line tomorrow.
[2017-04-26] MEDS ORDERED: Insulin LISPRO* 1 UNITS UNIT SUBCUT ONE (12:39)
[2017-04-26] MEDS: Albuterol 2.5 MG/3 ML NEB.SOL* (0.083%) INH PRN ×2 (14:57→19:41)
--- NOTE | 2017-04-26 15:47 | PN ---
Progress Note - Progress Note Date of Service: 04/26/17 SOAP: Subjective: []Patient seen at bedside. He is comfortable, he confirms mild Left foot pain. Denies CP, SOB, dizziness, nausea. Nursing changed dressing this morning. Objective: []General: Appears comfortable laying in bed. Well appearing, NAD. LLE: Dressing in place, CDI. Patient confirms minimal sensation of all 5 left toes. Brisk capillary refill of toes. Able to wiggle toes, + DF/PF. Calf supple and nontender. Vital Signs Temp 98.8 F 04/26/17 12:55 Pulse 76 04/26/17 14:58 Resp 20 04/26/17 14:58 BP 122/60 04/26/17 12:55 Pulse Ox 98 04/26/17 14:58 Intake & Output 04/25/17 04/26/17 04/26/17 18:59 06:59 18:59 Intake Total 1970 1895 1270 Output Total 2825 1460 2150 Balance -855 435 -880 Intake: IV Fluids 265 250 vancomycin 265 250 IVPB 250 10 NS (0.9%) 10 vancomycin 250 Oral 1720 1630 1010 Output: Urine 2825 1460 2150 Other: Estimated Void Large # Bowel Movements 1 0 6 Estimated Stool Amount Large Small # Voids 1 2 Laboratory Last Values WBC 14.7 10^3/ul (3.5-10.8) H 04/25/17 06:27 RBC 3.70 10^6/ul (4.0-5.4) L 04/25/17 06:27 Hgb 10.1 g/dl (14.0-18.0) L 04/25/17 06:27 Hct 31 % (42-52) L 04/25/17 06:27 MCV 84 fL (80-94) 04/25/17 06:27 MCH 27 pg (27-31) 04/25/17 06:27 MCHC 32 g/dl (31-36) 04/25/17 06:27 RDW 18 % (10.5-15) H 04/25/17 06:27 Plt Count 446 10^3/ul (150-450) 04/25/17 06:27 MPV 7 um3 (7.4-10.4) L 04/25/17 06:27 Immature Gran % (Auto) 3 % (0-9) 04/17/17 06:32 Neut % (Auto) 83.9 % (38-83) H 04/25/17 06:27 Lymph % (Auto) 4.6 % (25-47) L 04/25/17 06:27 [place] % (Auto) 5.9 % (1-9) 04/25/17 06:27 Eos % (Auto) 5.2 % (0-6) 04/25/17 06:27 Baso % (Auto) 0.4 % (0-2) 04/25/17 06:27 Absolute Neuts (auto) 12.3 10^3/ul (1.5-7.7) H 04/25/17 06:27 Absolute Lymphs (auto) 0.7 10^3/ul (1.0-4.8) L 04/25/17 06:27 Absolute Monos (auto) 0.9 10^3/ul (0-0.8) H 04/25/17 06:27 Absolute Eos (auto) 0.8 10^3/ul (0-0.6) H 04/25/17 06:27 Absolute Basos (auto) 0.1 10^3/ul (0-0.2) 04/25/17 06:27 Absolute Nucleated RBC 0.01 10^3/ul 04/25/17 06:27 Immature Gran % 4 % (0-9) 04/25/17 06:27 Neutrophils % 86 % (38-83) H 04/25/17 06:27 Band Neutrophils % 1 % (0-8) 04/25/17 06:27 Lymphocytes % 2 % (25-47) L 04/25/17 06:27 Monocytes % 6 % (0-13) 04/25/17 06:27 Eosinophils % 2 % (0-6) 04/25/17 06:27 Basophils % 2 % (0-2) 04/17/17 06:32 Myelocytes % 3 % (0-1) H 04/25/17 06:27 Nucleated RBC % 0.1 04/25/17 06:27 Nucleated RBCs/100 WBC 1 (0-0) H 04/25/17 06:27 Normal RBC Morphology Not Reportable 04/25/17 06:27 Polychromasia 1+ 04/25/17 06:27 Hypochromasia 1+ 04/25/17 06:27 Elliptocytes 1+ 04/17/17 06:32 Schistocytes 1+ 04/16/17 05:50 ESR 108 mm/Hr (0-20) H 04/15/17 07:46 Hem Pathologist Commnt 04/16/17 05:50 INR (Anticoag Therapy) 1.14 (0.77-1.02) H 04/25/17 06:27 Sodium 131 mmol/L (133-145) L 04/25/17 06:27 Potassium 4.0 mmol/L (3.5-5.0) 04/25/17 06:27 Chloride 92 mmol/L (101-111) L 04/25/17 06:27 Carbon Dioxide 35 mmol/L (22-32) H 04/25/17 06:27 Anion Gap 4 mmol/L (2-11) 04/25/17 06:27 BUN 92 mg/dL (6-24) H 04/26/17 05:50 Creatinine 1.52 mg/dL (0.67-1.17) H 04/26/17 05:50 Est GFR ( Amer) 62.2 (>60) 04/26/17 05:50 Est GFR (Non-Af Amer) 48.4 (>60) 04/26/17 05:50 BUN/Creatinine Ratio 55.2 (8-20) H 04/25/17 06:27 Glucose 149 mg/dL (70-100) H 04/25/17 06:27 POC Glucose (mg/dL) 204 mg/dL (70-100) H 04/26/17 12:15 Hemoglobin A1c 8.4 % (4.0-5.6) H 04/25/17 06:27 Lactic Acid 0.5 mmol/L (0.5-2.0) 04/15/17 07:46 Uric Acid 6.1 mg/dL (4.4-7.6) 04/15/17 07:46 Calcium 9.2 mg/dL (8.6-10.3) 04/25/17 06:27 Total Bilirubin 0.90 mg/dL (0.2-1.0) 04/16/17 05:50 AST 45 U/L (13-39) H 04/16/17 05:50 ALT 92 U/L (7-52) H 04/16/17 05:50 Alkaline Phosphatase 178 U/L (34-104) H 04/16/17 05:50 C-Reactive Protein 163.99 mg/L (< 5.00) H 04/16/17 05:50 Total Protein 6.1 g/dL (6.4-8.9) L 04/16/17 05:50 Albumin 2.9 g/dL (3.2-5.2) L 04/16/17 05:50 Globulin 3.2 g/dL (2-4) 04/16/17 05:50 Albumin/Globulin Ratio 0.9 (1-3) L 04/16/17 05:50 TSH 2.05 mcIU/mL (0.34-5.60) 04/16/17 05:50 Urine Color Straw 04/15/17 07:57 Urine Appearance Clear 04/15/17 07:57 Urine pH 6.0 (5-9) 04/15/17 07:57 Ur Specific [place] 1.010 (1.010-1.030) 04/15/17 07:57 Urine Protein 2+(100 mg/dl) (Negative) H 04/15/17 07:57 Urine Ketones Negative (Negative) 04/15/17 07:57 Urine Blood 1+ (Negative) H 04/15/17 07:57 Urine Nitrate Negative (Negative) 04/15/17 07:57 Urine Bilirubin Negative (Negative) 04/15/17 07:57 Urine Urobilinogen Negative (Negative) 04/15/17 07:57 Ur Leukocyte Esterase Negative (Negative) 04/15/17 07:57 Urine WBC (Auto) Absent (Absent) 04/15/17 07:57 Urine RBC (Auto) Trace(0-2/hpf) (Absent) 04/15/17 07:57 Urine Bacteria Absent (Absent) 04/15/17 07:57 Urine Glucose Negative (Negative) 04/15/17 07:57 Vancomycin Trough 13.0 mcg/mL 04/26/17 05:50 Assessment: 51 y.o male s/p I&D of L foot by Dr. Mckee 04/19/2017. Plan: []Daily Dry sterile dressing change NWB LLE DC to [facility] bed available
[2017-04-26] MEDS: Warfarin TAB(*) 7.5 MG PO SCH (16:20)
[2017-04-26] MEDS: Vancomycin(*) 750 MG in NS 0.9% 250 ML* 250 ML IVPB SCH (17:48)
[2017-04-26] MEDS: Senna TAB PO SCH (20:55)
[2017-04-27] MEDS: oxyCODONE TAB* 5 MG TAB PO PRN ×4 (01:10→17:53)
[2017-04-27] MEDS: Albuterol 2.5 MG/3 ML NEB.SOL* (0.083%) INH PRN (03:32)
[2017-04-27] MEDS: Levothyroxine TAB* 100 MCG TAB PO SCH (05:08)
[2017-04-27] MEDS: Vancomycin(*) 750 MG in NS 0.9% 250 ML* 250 ML IVPB SCH (05:08)
[2017-04-27 05:43] LABS: Hematocrit 31 % (42-52); Hemoglobin 10.1 g/dl (14.0-18.0); Mean Corpuscular HGB Conc 32 g/dl (31-36); Mean Corpuscular Hemoglobin 27 pg (27-31); Mean Corpuscular Volume 85 fL (80-94); Mean Platelet Volume 7 um3 (7.4-10.4); Red Blood Count 3.67 10^6/ul (4.0-5.4); Red Cell Distribution Width 18 % (10.5-15); White Blood Count 14.8 10^3/ul (3.5-10.8)
[2017-04-27 05:56] LABS: BUN/Creatinine Ratio 56.3 (8-20); Calcium 8.8 mg/dL (8.6-10.3); EGFR African American 58.7 (>60); EGFR Non-African American 45.6 (>60); Potassium 4.2 mmol/L (3.5-5.0)
[2017-04-27] MEDS: Mometasone/Formoter 200/5 MDI INH SCH (09:08)
[2017-04-27] MEDS: Polyethylene Glycol 3350* 17 GM PACKET PO SCH (09:27)
[2017-04-27] MEDS: Insulin ISOPH/REG 70/30 (*) 1 UNITS UNIT SUBCUT SCH ×2 (09:28→17:54)
[2017-04-27] MEDS: Insulin LISPRO* 1 UNITS UNIT SUBCUT SCH ×6 (09:28→17:54)
[2017-04-27] MEDS: Metolazone TAB* 5 MG PO SCH (09:31)
[2017-04-27] MEDS: Allopurinol TAB* 300 MG PO SCH (09:31)
[2017-04-27] MEDS: Atorvastatin* 40 MG TAB PO SCH (09:31)
[2017-04-27] MEDS: Spironolactone TAB* 25 MG PO SCH (09:31)
[2017-04-27] MEDS: Docusate CAP* 100 MG PO SCH (09:31)
[2017-04-27] MEDS: Torsemide TAB* 20 MG PO SCH ×2 (09:31→16:06)
[2017-04-27] MEDS: Diltiazem CD CAP* 180 MG PO SCH (09:31)
[2017-04-27] MEDS: Metoprolol Tartrate TAB* 25 MG PO SCH (09:31)
--- NOTE | 2017-04-27 10:03 | PN ---
Progress Note - Progress Note Date of Service: 04/27/17 SOAP: Subjective: CC: Left foot pain HPI: 51 year old man with sudden onset left foot pain and swelling, abscess on MRI, aspirated, growing MRSA which is also in blood. Had I&D, no foot pain, swelling decreasing. No fever, rash, or diarrhea. Objective: [] Laboratory Results - last 24 hr 04/26/17 04/26/17 04/26/17 12:15 16:23 20:30 WBC RBC Hgb Hct MCV MCH MCHC RDW Plt Count MPV INR (Anticoag Therapy) Sodium Potassium Chloride Carbon Dioxide Anion Gap BUN Creatinine Est GFR ( Amer) Est GFR (Non-Af Amer) BUN/Creatinine Ratio Glucose POC Glucose (mg/dL) 204 H 261 H 311 H Calcium 04/27/17 04/27/17 04/27/17 05:30 05:30 05:30 WBC 14.8 H RBC 3.67 L Hgb 10.1 L Hct 31 L MCV 85 MCH 27 MCHC 32 RDW 18 H Plt Count 404 MPV 7 L INR (Anticoag Therapy) 1.21 H Sodium 129 L Potassium 4.2 Chloride 92 L Carbon Dioxide 33 H Anion Gap 4 BUN 90 H Creatinine 1.60 H Est GFR ( Amer) 58.7 Est GFR (Non-Af Amer) 45.6 BUN/Creatinine Ratio 56.3 H Glucose 208 H POC Glucose (mg/dL) Calcium 8.8 04/27/17 09:05 WBC RBC Hgb Hct MCV MCH MCHC RDW Plt Count MPV INR (Anticoag Therapy) Sodium Potassium Chloride Carbon Dioxide Anion Gap BUN Creatinine Est GFR ( Amer) Est GFR (Non-Af Amer) BUN/Creatinine Ratio Glucose POC Glucose (mg/dL) 234 H Calcium Gen:awake, no distress HEENT:PERRL, MMM Heart:RRR no murmur Lungs:CTA BL Abd:+BS NTND soft Skin: no rash MSK: L foot dorsum incision intact, no edema or fluctuance Assessment: 1. MRSA bacteremia, cleared; no stigmata of IE and low grade bacteremia, doubt endocarditis 2. MRSA abscess left foot 3. morbid obesity 4. insulin dependent diabetes 5. CKD, stage 5 Plan: 1. continue vancomycin goal tr 15-20; day 01/01 with weekly cbc, cmp, crp, vanco trough
--- NOTE | 2017-04-27 12:56 | PN ---
Progress Note - Progress Note Date of Service: 04/27/17 SOAP: Subjective: 51 y.o male s/p I&D of L foot by DR. Mckee 04/19/2017. Patient continues to have pain in heel, no other complaints. Questions about when he will be able to be weight bearing, will defer to Dr. Mckee and healing. VSS afebrile. Objective: General- Resting in bed comfortably, NAD AO. MSK- L foot with dressing partially removed, no odor noted, continued hyperpigmentation. No drainage noted. + DF/PF without difficulty. Vital Signs Temp 98.2 F 04/27/17 12:05 Pulse 76 04/27/17 12:05 Resp 20 04/27/17 12:38 BP 128/57 04/27/17 12:05 Pulse Ox 97 04/27/17 12:05 Intake & Output 04/26/17 04/27/17 04/27/17 18:59 06:59 18:59 Intake Total 2070 3080 1570 Output Total 2150 2390 1125 Balance -80 690 445 Intake: IV Fluids 250 10 250 NS (0.9%) 10 vancomycin 250 250 IVPB 10 200 NS (0.9%) 10 vancomycin 200 Oral 1810 2870 1320 Output: Urine 2150 2390 1125 Other: Estimated Void Small # Bowel Movements 6 0 Estimated Stool Amount Small # Voids 1 Assessment: Stable 51 y.o male s/p I&D of L foot by DR. Mckee 04/19/2017. Plan: - Continue DVT prophylaxis - Continue IV abx per ID - likely D/C to [facility] when bed available. Acetaminophen (Tylenol Tab*) 650 mg PO Q4H PRN PRN Reason: FEVER/PAIN Last Admin: 04/15/17 18:57 Dose: 650 mg Al Hydrox/Mg Hydrox/Simethicone (Maalox Plus*) 30 ml PO Q6H PRN PRN Reason: INDIGESTION Last Admin: 04/21/17 20:20 Dose: 30 ml Albuterol (Ventolin 2.5 Mg/3 Ml Neb.Christy*) 2.5 mg INH Q4H PRN PRN Reason: SOB/WHEEZING Last Admin: 04/27/17 03:32 Dose: 2.5 mg Allopurinol (Zyloprim Tab*) 300 mg PO BID [facility] Last Admin: 04/27/17 09:31 Dose: 300 mg Atorvastatin Calcium (Lipitor*) 40 mg PO DAILY [facility] Last Admin: 04/27/17 09:31 Dose: 40 mg Dextrose (D50w Syringe 50 Ml*) 12.5 gm IV PUSH .FOR FS < 60 - SS PRN PRN Reason: FS < 60 Diltiazem HCl (Cardizem Cd Cap*) 360 mg PO DAILY [facility] Last Admin: 04/27/17 09:31 Dose: 360 mg Docusate Sodium (Colace Cap*) 100 mg PO BID [facility] Last Admin: 04/27/17 09:31 Dose: 100 mg Fluticasone Propionate (Flonase Nasal [place] 50mcg*) 2 spray BOTH NARES DAILY PRN PRN Reason: Allergy Symptoms Heparin Sodium (Porcine) (Heparin Flush Picc/Ml/Cvc(*)) 1 ml FLUSH 0600,1800 [facility] PRN Reason: Protocol Last Admin: 04/27/17 08:04 Dose: 1 ml Vancomycin HCl 750 mg/ Sodium (Chloride) 250 mls @ 166.667 mls/hr IVPB Q12H [facility] Last Admin: 04/27/17 05:08 Dose: 166.667 mls/hr Insulin Human Isoph/Insulin Regular (Humulin 70/30 (*)) 100 units SUBCUT 0800, 1700 [facility] Last Admin: 04/27/17 09:28 Dose: 100 units Insulin Human Lispro (Humalog*) 0 units SUBCUT ACHS [facility] PRN Reason: Protocol Last Admin: 04/27/17 12:37 Dose: 6 units Insulin Human Lispro (Humalog*) 10 units SUBCUT AC [facility] Last Admin: 04/27/17 12:38 Dose: 10 units Lactulose (Lactulose*) 30 ml PO DAILY PRN PRN Reason: CONSTIPATION Stop: 04/28/17 10:37 Last Admin: 04/23/17 11:00 Dose: 30 ml Levothyroxine Sodium (Synthroid Tab*) 200 mcg PO DAILY@0600 [facility] Last Admin: 04/27/17 05:08 Dose: 200 mcg Metolazone (Zaroxolyn Tab*) 5 mg PO DAILY [facility] Last Admin: 04/27/17 09:31 Dose: 5 mg Metoprolol Tartrate (Lopressor Tab*) 25 mg PO BID [facility] Last Admin: 04/27/17 09:31 Dose: 25 mg Mometasone Furoate/Formoterol Fumar (Dulera 200/5 Mdi*) 2 puff INH BID [facility] PRN Reason: Protocol Stop: 04/27/17 21:00 Last Admin: 04/27/17 09:08 Dose: 2 puff Oxycodone HCl (Roxycodone Tab*) 10 mg PO Q4H PRN PRN Reason: PAIN - MODERATE TO SEVERE Last Admin: 04/27/17 12:38 Dose: 10 mg Oxycodone/Acetaminophen (Percocet 5/325 Tab*) 1 tab PO Q4H PRN PRN Reason: PAIN Last Admin: 04/25/17 21:29 Dose: 1 tab Pharmacy Consult (Vancomycin Per Pharmacy*) 1 note FOLLOW UP . PRN PRN Reason: PER PROTOCOL Pharmacy Profile Note (Vancomycin Trough Check) 1 note FOLLOW UP ONCE ONE Stop: 04/28/17 06:01 Polyethylene Glycol/Electrolytes (Miralax*) 17 gm PO DAILY [facility] Last Admin: 04/27/17 09:27 Dose: 17 gm Senna (Senokot Tab*) 2 tab PO BEDTIME [facility] Last Admin: 04/26/17 20:55 Dose: Not Given Spironolactone (Aldactone Tab*) 50 mg PO DAILY [facility] Last Admin: 04/27/17 09:31 Dose: 50 mg Torsemide (Demadex*) 40 mg PO 0900,1600 [facility] Last Admin: 04/27/17 09:31 Dose: 40 mg Warfarin Sodium (Coumadin Tab(*)) 7.5 mg PO DAILY@1700 [facility] PRN Reason: Protocol Last Admin: 04/26/17 16:20 Dose: 7.5 mg
--- NOTE | 2017-04-27 16:09 | PN ---
Subjective Date of Service: 04/27/17 Interval History: Pt is feeling well. He states his foot is still painful. He denies any SOB, chest pain or abdominal pain. No diarrhea. Family History: Unchanged from Admission Social History: Unchanged from Admission Past Medical History: Unchanged from Admission Objective Active Medications: Acetaminophen (Tylenol Tab*) 650 mg PO Q4H PRN PRN Reason: FEVER/PAIN Last Admin: 04/15/17 18:57 Dose: 650 mg Al Hydrox/Mg Hydrox/Simethicone (Maalox Plus*) 30 ml PO Q6H PRN PRN Reason: INDIGESTION Last Admin: 04/21/17 20:20 Dose: 30 ml Albuterol (Ventolin 2.5 Mg/3 Ml Neb.Christy*) 2.5 mg INH Q4H PRN PRN Reason: SOB/WHEEZING Last Admin: 04/27/17 03:32 Dose: 2.5 mg Allopurinol (Zyloprim Tab*) 300 mg PO BID [facility] Last Admin: 04/27/17 09:31 Dose: 300 mg Atorvastatin Calcium (Lipitor*) 40 mg PO DAILY [facility] Last Admin: 04/27/17 09:31 Dose: 40 mg Dextrose (D50w Syringe 50 Ml*) 12.5 gm IV PUSH .FOR FS < 60 - SS PRN PRN Reason: FS < 60 Diltiazem HCl (Cardizem Cd Cap*) 360 mg PO DAILY [facility] Last Admin: 04/27/17 09:31 Dose: 360 mg Docusate Sodium (Colace Cap*) 100 mg PO BID [facility] Last Admin: 04/27/17 09:31 Dose: 100 mg Fluticasone Propionate (Flonase Nasal [place] 50mcg*) 2 spray BOTH NARES DAILY PRN PRN Reason: Allergy Symptoms Glipizide (Glucotrol Tab*) 5 mg PO 0800,1700 [facility] Heparin Sodium (Porcine) (Heparin Flush Picc/Ml/Cvc(*)) 1 ml FLUSH 0600,1800 [facility] PRN Reason: Protocol Last Admin: 04/27/17 08:04 Dose: 1 ml Vancomycin HCl 750 mg/ Sodium (Chloride) 250 mls @ 166.667 mls/hr IVPB Q12H [facility] Last Admin: 04/27/17 05:08 Dose: 166.667 mls/hr Insulin Human Isoph/Insulin Regular (Humulin 70/30 (*)) 100 units SUBCUT 0800, 1700 [facility] Last Admin: 04/27/17 09:28 Dose: 100 units Insulin Human Lispro (Humalog*) 0 units SUBCUT ACHS [facility] PRN Reason: Protocol Last Admin: 04/27/17 12:37 Dose: 6 units Insulin Human Lispro (Humalog*) 10 units SUBCUT AC [facility] Last Admin: 04/27/17 12:38 Dose: 10 units Lactulose (Lactulose*) 30 ml PO DAILY PRN PRN Reason: CONSTIPATION Stop: 04/28/17 10:37 Last Admin: 04/23/17 11:00 Dose: 30 ml Levothyroxine Sodium (Synthroid Tab*) 200 mcg PO DAILY@0600 [facility] Last Admin: 04/27/17 05:08 Dose: 200 mcg Metolazone (Zaroxolyn Tab*) 5 mg PO DAILY [facility] Last Admin: 04/27/17 09:31 Dose: 5 mg Metoprolol Tartrate (Lopressor Tab*) 25 mg PO BID [facility] Last Admin: 04/27/17 09:31 Dose: 25 mg Mometasone Furoate/Formoterol Fumar (Dulera 200/5 Mdi*) 2 puff INH BID [facility] PRN Reason: Protocol Stop: 04/27/17 21:00 Last Admin: 04/27/17 09:08 Dose: 2 puff Oxycodone HCl (Roxycodone Tab*) 10 mg PO Q4H PRN PRN Reason: PAIN - MODERATE TO SEVERE Last Admin: 04/27/17 12:38 Dose: 10 mg Oxycodone/Acetaminophen (Percocet 5/325 Tab*) 1 tab PO Q4H PRN PRN Reason: PAIN Last Admin: 04/25/17 21:29 Dose: 1 tab Pharmacy Consult (Vancomycin Per Pharmacy*) 1 note FOLLOW UP . PRN PRN Reason: PER PROTOCOL Pharmacy Profile Note (Vancomycin Trough Check) 1 note FOLLOW UP ONCE ONE Stop: 04/28/17 06:01 Polyethylene Glycol/Electrolytes (Miralax*) 17 gm PO DAILY [facility] Last Admin: 04/27/17 09:27 Dose: 17 gm Senna (Senokot Tab*) 2 tab PO BEDTIME [facility] Last Admin: 04/26/17 20:55 Dose: Not Given Spironolactone (Aldactone Tab*) 50 mg PO DAILY [facility] Last Admin: 04/27/17 09:31 Dose: 50 mg Torsemide (Demadex*) 40 mg PO 0900,1600 [facility] Last Admin: 04/27/17 16:06 Dose: Not Given Warfarin Sodium (Coumadin Tab(*)) 7.5 mg PO DAILY@1700 [facility] PRN Reason: Protocol Last Admin: 04/26/17 16:20 Dose: 7.5 mg Vital Signs - 8 hr 04/27/17 04/27/17 04/27/17 10:41 10:54 12:05 Temperature 98.2 F Pulse Rate 88 76 Respiratory 16 18 Rate Blood Pressure 128/57 (mmHg) O2 Sat by Pulse 97 Oximetry 04/27/17 04/27/17 12:38 16:05 Temperature Pulse Rate Respiratory 20 18 Rate Blood Pressure (mmHg) O2 Sat by Pulse Oximetry Oxygen Devices in Use Now: Nasal Cannula Appearance: Morbidly obese male sitting up in bed, NAD Eyes: No Scleral Icterus Ears/Nose/Mouth/Throat: Mucous Membranes Moist Respiratory: Symmetrical Chest Expansion and Respiratory Effort, Clear to Auscultation - anteriorly Cardiovascular: NL Sounds; No Murmurs; No JVD, RRR Abdominal: NL Sounds; No Tenderness; No Distention - obese Extremities: No Clubbing, Cyanosis Skin: No Rash or Ulcers, No Nodules or Sclerosis, - - wound not looked at today Neurological: Alert and Oriented x 3 Result Diagrams: 04/27/17 05:30 04/27/17 05:30 Additional Lab and Data: . Microbiology and Other Data: . Microbiology 04/17/17 13:30 Gram Stain - Final Misc Fluid (See Comment) - Ankle Left Body Fluid Culture - Preliminary MRSA Skin and Soft Tissue MRSA/MSSA (PCR - Final Mrsa Positive S.aureus Positive 04/15/17 07:46 Aerobic Blood Culture - Preliminary Blood Venous No Growth Day 4 Anaerobic Blood Culture - Final MRSA 04/15/17 07:46 Aerobic Blood Culture - Final Blood Venous MRSA Anaerobic Blood Culture - Preliminary No Growth Day 4 Blood MRSA/MSSA (PCR) - Final Mrsa Positive S.aureus Positive 04/18/17 06:26 Aerobic Blood Culture - Preliminary Blood Venous No Growth Day 1 Anaerobic Blood Culture - Preliminary No Growth Day 1 04/18/17 06:26 Aerobic Blood Culture - Preliminary Blood Venous No Growth Day 1 Anaerobic Blood Culture - Preliminary No Growth Day 1 Assess/Plan/Problems-Billing Mr Anderson is a 51 year old male with a PMHx of morbid obesity, afib, and DM presenting with sepsis 2/2 MRSA cellulitis/infection of LLE foot wound, being managed on antibiotics and requiring I&D of left foot/ankle. - Patient Problems (1) Cellulitis of left lower extremity Current Visit: Yes Status: Acute Code(s): L03.116 - CELLULITIS OF LEFT LOWER LIMB SNOMED Code(s): 929398862 Comment: The patient presented with L foot/ankle cellulitis and abscess. Continue daily dry sterile dressing changes. Follow up with Dr. Mckee early May. The patient is s/p I&D of a L ankle abscess and L ankle arthrotomy, exploration and drainage on 04/19/17. Plan is for custodial IV Abx. Today is D#. No beds at [facility], [facility] or [facility]. Will swing patient today. (2) CKD (chronic kidney disease) stage 3, GFR 30-59 ml/min Current Visit: Yes Status: Acute Code(s): N18.3 - CHRONIC KIDNEY DISEASE, STAGE 3 (MODERATE) SNOMED Code(s): 364364222 Comment: Creatinine is stable. (3) Diabetes mellitus Current Visit: Yes Status: Acute Code(s): E11.9 - TYPE 2 DIABETES MELLITUS WITHOUT COMPLICATIONS SNOMED Code(s): 51607595 Comment: Sugars are still not controlled. Will continue 70/30 100units SQ BID , lispro 10 units with each meal standing in addition to sliding scale and add glipizide. (4) Chronic respiratory failure Current Visit: Yes Status: Acute Code(s): J96.10 - CHRONIC RESPIRATORY FAILURE, UNSP W HYPOXIA OR HYPERCAPNIA SNOMED Code(s): 87276072 Comment: Pt with chronic hypoxic respiratory failure secondary to COPD and obesity hypoventilation syndrome. Continue supplemental O2. Respiratory status is stable. (5) Diastolic CHF, chronic Current Visit: Yes Status: Acute Code(s): I50.32 - CHRONIC DIASTOLIC ( CONGESTIVE) HEART FAILURE SNOMED Code(s): 923715378 Comment: Pt appears euvolemic. Continue metolazone, torsemide and spironolactone. (6) Morbid obesity Current Visit: Yes Status: Acute Code(s): E66.01 - MORBID (SEVERE) OBESITY DUE TO EXCESS CALORIES SNOMED Code(s): 979297218 Comment: Encourage diet modification. (7) DVT prophylaxis Current Visit: Yes Status: Acute Priority: Medium Onset Date: 06/10/14 Code(s): FVK1199 - SNOMED Code(s): 608576340 Comment: Subtherapeutic INR-add SQ heparin until INR therapeutic (8) Full code status Current Visit: Yes Status: Acute Priority: Medium Onset Date: 06/10/14 Code(s): Z78.9 - OTHER SPECIFIED HEALTH STATUS SNOMED Code(s): 180570448 Status and Disposition: d/c to swing
[2017-04-27] MEDS ORDERED: glipiZIDE TAB* 5 MG PO SCH (17:00)
[2017-04-27 17:15] VITALS: BP 114/69
[2017-04-27] MEDS: Warfarin TAB(*) 7.5 MG PO SCH (17:53)
[2017-04-27] MEDS ORDERED: Heparin VIAL(*) 5000 UNITS/ML VIAL (FIVE THOUSAND) SUBCUT SCH (22:00)
--- NOTE | 2017-04-28 01:26 | DS ---
CC: Dr. Plasencia * DISCHARGE SUMMARY: DATE OF ADMISSION: 04/15/17 DATE OF DISCHARGE: 04/27/17 PRIMARY CARE PROVIDER: Dr. Plasencia. PRINCIPAL DIAGNOSES: MRSA bacteremia and MRSA, left foot abscess. SECONDARY DIAGNOSES: 1. Type 2 diabetes with neuropathy and nephropathy. 2. Super morbid obesity. 3. Obstructive sleep apnea. 4. Chronic hypoxemic respiratory failure, on 5 L O2 continuously. 5. History of deep venous thrombosis and pulmonary embolism. 6. Stage 3 chronic kidney disease. 7. Dyslipidemia. 8. Hypertension. 9. Peripheral vascular disease. 10. Hypothyroidism. DISCHARGE MEDICATIONS: 1. Tylenol 650 mg p.o. q.4 hours p.r.n. pain. 2. Maalox 30 mL p.o. q.6 hours p.r.n. indigestion. 3. Albuterol 1 neb inhaled q.4 hours p.r.n. shortness of breath. 4. Allopurinol 300 mg p.o. b.i.d. 5. Lipitor 40 mg p.o. daily. 6. Diltiazem CD 360 mg p.o. daily. 7. Colace 100 mg p.o. b.i.d. 8. Flonase 2 squirts both nostrils daily p.r.n. allergies. 9. Glipizide 5 mg p.o. twice daily. 10. Heparin flush per PICC protocol. 11. Humulin 70/30 100 units subcutaneous twice daily. 12. Lispro 10 units subcutaneous a.c. 13. Lispro via sliding scale a.c. h.s. 14. Lactulose 30 mL p.o. daily p.r.n. constipation. 15. Levothyroxine 200 mcg p.o. daily. 16. Metolazone 5 mg p.o. daily. 17. Metoprolol tartrate 25 mg p.o. b.i.d. 18. Dulera 200/5 2 puffs inhaled twice daily. 19. Oxycodone 10 mg p.o. q.4 hours p.r.n. pain. 20. MiraLAX 17 g p.o. daily. 21. Senna 2 tabs p.o. q.h.s. 22. Spironolactone 15 mg p.o. daily. 23. Torsemide 40 mg p.o. at 0900 and 1600 daily. 24. Vancomycin 750 mg IV q.12 hours. 25. Coumadin 7.5 mg p.o. daily. HOSPITAL COURSE: Mr. Anderson is a 51-year-old male who presented to the emergency room on 04/15/17 with complaints of leg pain. The patient was noted to have a marked leukocytosis and cellulitis of the left lower extremity. The patient was admitted for treatment of this. He underwent venous Doppler on 02/20 that revealed no evidence for above left DVT and patent left posterior tibial veins. Peroneal veins, however, could not be assessed with the magnitude of soft tissue edema. A lower extremity MRI was also obtained that revealed multilocular abscess collection over the dorsum of the foot versus advanced Charcot arthropathy with ganglion over the dorsum of the foot. Because of this , the patient was seen in consultation by Orthopedics. Dr. Mendoza performed aspiration on 04/17/17, which resulted in a few drops of bloody fluid being obtained. This was sent to the micro lab and came back positive for MRSA. The patient was also seen in consultation by Dr. Fierro, who identified MRSA bacteremia and left foot cellulitis. The patient was then seen by Dr. Mckee , who recommended irrigation and debridement. The patient was taken to the operating room on 04/19/17 where he underwent left ankle arthrotomy, exploration and drainage, and irrigation and debridement of deep ankle abscess/ hematomas. The patient has been nonweightbearing since his orthopedic procedure. There were drains in place and these have since been removed. The patient does have a small wound at the site of one of the drain insertion sites. The patient has dry sterile dressings in place. Given the MRSA bacteremia and deep left foot abscess, the decision was made to treat the patient with correction IV antibiotics, vancomycin for 28 days. Today, 04/27/17 is day #8 of 28 of IV antibiotic therapy. The plan was to look for a subacute rehab bed for the patient to go to, however, given his super morbid obesity, the patient has not had any bed offers and therefore is being converted to swing bed status today. The patient will continue on vancomycin as recommended by Dr. Fierro. He will need a weekly CBC, CMP, CRP and vanco trough. In terms of the patient's chronic medical conditions, his respiratory status has been stable. He likely has obesity hypoventilation syndrome with chronic hypoxic respiratory failure. The patient is on 5 L of oxygen continuously and will remain on the 5 L moving forward. The patient has uncontrolled type 2 diabetes. His hemoglobin A1c prior to admission was 8.4%. In the hospital, despite being on his usual home insulin regimen, his sugars have been ranging in the 200 to 300 range. The patient is already receiving Humulin 70/30 100 units twice daily and lispro 10 units with each meal. I will add glipizide 5 mg twice daily to see if this helps with his blood sugar control as the patient is already receiving numerous pokes for his insulin shots daily. If the glipizide does not make a difference, his 70/30 insulin will need to be increased or changed to different formulation. The patient also has stage 2 chronic kidney disease based on GFR. However, the patient is only requiring a very small dose of vancomycin despite his large size. This does make me question whether or not his renal function may be overestimated by his creatinine clearance. The patient will need to have his creatinine monitored closely. The patient has a history of DVT and PE. His INR unfortunately is subtherapeutic. The patient is going to be started on heparin 5000 units subcutaneous q.8 hours while waiting his INR to return to the therapeutic range. His home dose of Coumadin is 7.5 mg daily, which he is currently receiving. The patient was off Coumadin for surgery which likely explains why he is subtherapeutic. FOLLOWUP CONCERNS: The patient is being discharged to swing bed status today, 04/27/17. ACTIVITY LEVEL: As tolerated. DIET: Diabetic. CONDITION ON DISCHARGE: Stable. TIME SPENT: 35 minutes were spent discharging this patient to swing bed status. [id number]/[facility] #: [id number] VIGNESH
[2017-04-28] MEDS ORDERED: Vancomycin Trough Check NOTE FOLLOW UP ONE (06:00)
== END 2017-04-27 17:49 | disposition swing bed (61) | DRG 710 ==
LOC: ED 06:11 → MED 09:07
PROVIDERS: ADMIT Internal Medicine; ATTEND Hospitalist
PROC: 0SBG0ZZ Excision of Left Ankle Joint, Open Approach (ICD-10-PCS; 2017-04-19)
PROC: 0S9G3ZX Drainage of Left Ankle Joint, Percutaneous Approach, Diagnostic (ICD-10-PCS; principal; 2017-04-19 12:45)
PROC: 02HV33Z Insertion of Infusion Device into Superior Vena Cava, Percutaneous Approach (ICD-10-PCS; 2017-04-25)
DX: A41.02 Sepsis due to Methicillin resistant Staphylococcus aureus (principal); I42.9 Cardiomyopathy, unspecified; J96.11 Chronic respiratory failure with hypoxia; E11.22 Type 2 diabetes mellitus with diabetic chronic kidney disease; E66.01 Morbid (severe) obesity due to excess calories; E11.40 Type 2 diabetes mellitus with diabetic neuropathy, unspecified; I13.0 Hypertensive heart and chronic kidney disease with heart failure and stage 1 through stage 4 chronic kidney disease, or unspecified chronic kidney disease; L03.116 Cellulitis of left lower limb; M86.8X6 Other osteomyelitis, lower leg; E87.1 Hypo-osmolality and hyponatremia; L02.612 Cutaneous abscess of left foot; I50.32 Chronic diastolic (congestive) heart failure; Z68.44 Body mass index [BMI] 60.0-69.9, adult; E11.51 Type 2 diabetes mellitus with diabetic peripheral angiopathy without gangrene; M19.90 Unspecified osteoarthritis, unspecified site; I48.91 Unspecified atrial fibrillation; E78.00 Pure hypercholesterolemia, unspecified; J44.9 Chronic obstructive pulmonary disease, unspecified; M10.9 Gout, unspecified; D64.9 Anemia, unspecified; N18.3 Chronic kidney disease, stage 3 (moderate); E03.9 Hypothyroidism, unspecified; G47.33 Obstructive sleep apnea (adult) (pediatric); E11.610 Type 2 diabetes mellitus with diabetic neuropathic arthropathy; B95.62 Methicillin resistant Staphylococcus aureus infection as the cause of diseases classified elsewhere; Z99.81 Dependence on supplemental oxygen; Z88.1 Allergy status to other antibiotic agents; Z86.718 Personal history of other venous thrombosis and embolism; Z86.14 Personal history of Methicillin resistant Staphylococcus aureus infection; Z82.49 Family history of ischemic heart disease and other diseases of the circulatory system; Z83.3 Family history of diabetes mellitus; Z87.891 Personal history of nicotine dependence; Z89.421 Acquired absence of other right toe(s); Z79.4 Long term (current) use of insulin; Z79.01 Long term (current) use of anticoagulants
CPT/HCPCS: 36415; 71010; 80048; 80053; 80202; 81003; 81015; 82565; 83036; 83605; 84443; 84520; 84550; 85025; 85027; 85060; 85610; 85652; 86140; 87040; 87070; 87073; 87077; 87150; 87186; 87205; 87640; 87641; 93005; 94640; 94660; 94760; A9270-GY; C1751; J0690; J0692; J2250; J2270; J2405; J2543; J2765; J3010; J3370; J3490

== ENCOUNTER 2017-04-27 16:41 | Inpatient (IN) | payer BC ==
[2017-04-27] MEDS ORDERED: glipiZIDE TAB* 5 MG PO SCH (17:22)
--- OUTSIDE RECORDS SUMMARY | 2017-04-27 18:00 | XMS REPORT ---
:1965 External Reference #:[id number] Author Organization [facility] Address [address] [address] Phone [phone] Care Team Providers Name Role Phone Lencho Plasencia MD Primary Care Physician Unavailable Payers Type Date Identification Numbers Payment Provider Subscriber Health Maintenance Effective: Policy Number: [employer] Bautista Villanueva Justin Olivarez (HMO) 05/07/2011 [id number] Solutions Group Number: [id number] [address] [address] Group Name: [place] [address] PayID: [id number] Medigap Part B Effective: Policy Number: BS Facets Lauren Gia Justin 05/07/2014 [id number] PayID: [id number] [address] [address] [place] [address] Problems Date Description Provider Status Onset: 02/27/2017 Ulcer of foot Jose Mckee MD Active Social History Type Date Description Comments Smoking Patient has never smoked Allergies, Adverse Reactions, Alerts Description No Information Medications Medication Date Status Form Strength Qnty SIG Indications Ordering Provider Doxycycline 03/14/ Active Capsules 100mg 28cap one Mann Hyclate 2017 s capsule D. twice [place], daily for M.D. 14 days Albuterol / Active Nebulizer (2.5mg/3M 1 vial via Unknown Sulfate 0000 L) 0.083% nebulizer every 4 hrs as needed for shortness of breath (per 03/05/[address] [facility] [place] summary) Proair HFA / Active Aerosol 108(90Bas 2 puffs by Unknown 0000 e) mouth mcg/Act every 4 hours as needed (per 03/05/[address] [facility] summary) Allopurinol 00/00/ Active Tablets 300mg 2 by mouth Unknown 0000 every day (per 03/05/[address] [facility] summary) Atorvastatin 00/ Active Tablets 40mg 1 by mouth Unknown Calcium 0000 every day (per 03/05/[address] [facility] summary) Symbicort 00/ Active Aerosol 160-4.5mc 2 puff Unknown 0000 g/Act twice a day (per 03/05/[address] [facility] summary) Diltiazem HCL ER / Active Caps ER 360mg 1 by mouth Unknown Beads 0000 24HR every day (per 03/05/[address] [facility] summary) Fluticasone / Active Suspension 50mcg/Act 2 sprays Unknown Propionate 0000 each nostril daily as needed (per 03/05/[address] [facility] [place] summary) Humulin 70/30 / Active Suspension (70-30)10 100 units Unknown 0000 0Unit/ML sub cutaneous twice daily (per 03/05/[address] [facility] [place] summary) Humalog / Active Solution 100Unit/M sliding Unknown 0000 L scale at mealtime (per 03/05/[address] [facility] summary) Ketoconazole / Active Cream 2% apply Unknown 0000 twice a day (per 03/05/[address] [facility] summary) Levothyroxine / Active Tablets 200mcg take 1 Unknown Sodium 0000 tablet every morning (per 03/05/[address] [facility] summary) Metolazone 00/ Active Tablets 5mg 1 by mouth Unknown 0000 once daily (per 03/05/[address] [facility] summary) Metoprolol / Active Tablets 25mg 1 by mouth Unknown Tartrate 0000 twice a day (per 03/05/[address] [facility] summary) Spironolactone / Active Tablets 50mg 1 by mouth Unknown 0000 every day (per 03/05/[address] [facility] summary) Torsemide 00/ Active Tablets 20mg 2 by mouth Unknown 0000 twice a day (per 03/05/[address] [facility] summary) Coumadin / Active Tablets 5mg 3 by mouth Unknown 0000 every day (per 03/05/[address] [facility] summary) Oxycodone HCL / Active Tablets 10mg 1 tab 4h Unknown 0000 as needed for pain (per 03/05/[address] [facility] summary) Vancomycin HCL / Hx Solution 750mg IV q 12 Unknown 0000 - Rec hrs through 2016 Lifetime Care (end date 03/15/17) (per 03/05/[address] [facility] summary) Vital Signs Date Vital Result Comment 03/30/2017 Height 72 inches 6'0" Weight 459.00 lb BP Systolic 130 mmHg BP Diastolic 74 mmHg Respiratory Rate 20 /min Pain Level 0 BMI (Body Mass Index) 62.2 kg/m2 03/16/2017 Height 72 inches 6'0" Weight 459.00 lb BP Systolic 128 mmHg BP Diastolic 70 mmHg Respiratory Rate 20 /min Body Temperature 98.3 F Pain Level 6 BMI (Body Mass Index) 62.2 kg/m2 Results Test Date Test Result H/L Range Note CBC Auto Diff 03/13/2017 White Blood Count 13.6 10^3/uL High 3.5-10.8 Red Blood Count 3.74 10^6/uL Low 4.0-5.4 Hemoglobin 10.1 g/dL Low 14.0-18.0 Hematocrit 32 % Low 42-52 Mean Corpuscular Volume 86 fL 80-94 Mean Corpuscular Hemoglobin 27 pg 27-31 Mean Corpuscular HGB Conc 31 g/dL 31-36 Red Cell Distribution Width 18 % High 10.5-15 Platelet Count 397 10^3/uL 150-450 Mean Platelet Volume 8 um3 7.4-10.4 Abs Neutrophils 11.3 10^3/uL High 1.5-7.7 Abs Lymphocytes 0.7 10^3/uL Low 1.0-4.8 Abs Monocytes 0.7 10^3/uL 0-0.8 Abs Eosinophils 0.8 10^3/uL High 0-0.6 Abs Basophils 0.1 10^3/uL 0-0.2 Abs Nucleated RBC 0.04 10^3/uL Granulocyte % 82.8 % 38-83 Lymphocyte % 4.9 % Low 25-47 Monocyte % 5.5 % 1-9 Eosinophil % 6.1 % High 0-6 Basophil % 0.7 % 0-2 Nucleated Red Blood Cells % 0.3 Manual Differential 03/13/2017 Immature Granulocytes 7 % 0-9 Neutrophil % 80 % 38-83 Band % 2 % 0-8 Lymphocytes % 4 % Low 25-47 Monocytes % 3 % 0-13 Eosinophils % 6 % 0-6 Metamyelocytes % 2 % 0-2 Myelocytes % 2 % High 0-1 Promyelocytes % 1 % RBC Morphology Normal Normal Comp Metabolic Panel 03/13/2017 Sodium 131 mmol/L Low 133-145 Potassium 4.6 mmol/L 3.5-5.0 Chloride 90 mmol/L Low 101-111 Co2 Carbon Dioxide 35 mmol/L High 22-32 Anion Gap 6 mmol/L 2-11 Glucose 212 mg/dL High 70-100 Blood Urea Nitrogen 93 mg/dL High 6-24 Creatinine 1.90 mg/dL High 0.67-1.17 BUN/Creatinine Ratio 48.9 High 8-20 Calcium 9.3 mg/dL 8.6-10.3 Total Protein 7.0 g/dL 6.4-8.9 Albumin 3.3 g/dL 3.2-5.2 Globulin 3.7 g/dL 2-4 Albumin/Globulin Ratio 0.9 Low 1-3 Total Bilirubin 0.30 mg/dL 0.2-1.0 Alkaline Phosphatase 183 U/L High 34-104 Alt 51 U/L 7-52 Ast 31 U/L 13-39 Egfr Non- 37.4 >60 Egfr 48.1 >60 1 Laboratory test finding 03/13/2017 Vancomycin Trough 14.4 g/mL 2 C Reactive Protein 20.84 mg/L High < 5.00 3 Laboratory test finding 02/23/2017 Lactic Acid 0.7 mmol/L 0.5-2.0 4 Comp Metabolic Panel 02/23/2017 Sodium 129 mmol/L Low 133-145 Potassium 3.9 mmol/L 3.5-5.0 Chloride 91 mmol/L Low 101-111 Co2 Carbon Dioxide 31 mmol/L 22-32 Anion Gap 7 mmol/L 2-11 Glucose 193 mg/dL High 70-100 Blood Urea Nitrogen 81 mg/dL High 6-24 Creatinine 1.63 mg/dL High 0.67-1.17 BUN/Creatinine Ratio 49.7 High 8-20 Calcium 9.3 mg/dL 8.6-10.3 Total Protein 7.5 g/dL 6.4-8.9 Albumin 3.4 g/dL 3.2-5.2 Globulin 4.1 g/dL High 2-4 Albumin/Globulin Ratio 0.8 Low 1-3 Total Bilirubin 0.60 mg/dL 0.2-1.0 Alkaline Phosphatase 192 U/L High 34-104 Alt 83 U/L High 7-52 Ast 47 U/L High 13-39 Egfr Non- 44.7 >60 Egfr 57.4 >60 5 CBC Auto Diff 02/23/2017 White Blood Count 19.2 10^3/uL High 3.5-10.8 Red Blood Count 3.87 10^6/uL Low 4.0-5.4 Hemoglobin 10.7 g/dL Low 14.0-18.0 Hematocrit 33 % Low 42-52 Mean Corpuscular Volume 85 fL 80-94 Mean Corpuscular Hemoglobin 28 pg 27-31 Mean Corpuscular HGB Conc 33 g/dL 31-36 Red Cell Distribution Width 17 % High 10.5-15 Platelet Count 406 10^3/uL 150-450 Mean Platelet Volume 7 um3 Low 7.4-10.4 Abs Neutrophils 17.3 10^3/uL High 1.5-7.7 Abs Lymphocytes 0.5 10^3/uL Low 1.0-4.8 Abs Monocytes 0.9 10^3/uL High 0-0.8 Abs Eosinophils 0.3 10^3/uL 0-0.6 Abs Basophils 0.1 10^3/uL 0-0.2 Abs Nucleated RBC 0 10^3/uL Granulocyte % 90.2 % High 38-83 Lymphocyte % 2.5 % Low 25-47 Monocyte % 4.9 % 1-9 Eosinophil % 1.8 % 0-6 Basophil % 0.6 % 0-2 Nucleated Red Blood Cells % 0 Inr/Protime 02/23/2017 Inr 2.34 High 0.89-1.11 Laboratory test finding 02/23/2017 Partial Thrombo Time 38.7 seconds High 26.0-36.3 PTT Troponin-I (TnI) 0.05 ng/mL High <0.04 6 C Reactive Protein 186.16 mg/L High < 5.00 7 Erythrocyte Sed Rate 114 mm/Hr High 0-20 1 Because ethnic data is not always readily available, this report includes an eGFR for both -Americans and non- Americans. The National Kidney Disease Education Program (NKDEP) does not endorse the use of the MDRD equation for patients that are not between the ages of 18 and 70, are , have extremes of body size, muscle mass, or nutritional status, or are non- or non-. According to the National Kidney Foundation, irrespective of diagnosis, the stage of the disease is based on the level of kidney function: Stage Description GFR(mL/min/1.73 m(2)) 1 Kidney damage with normal or decreased GFR 90 2 Kidney damage with mild decrease in GFR 60-89 3 Moderate decrease in GFR 30-59 4 Severe decrease in GFR 15-29 5 Kidney failure <15 (or dialysis) 2 [address] FAX RESULTS TO DR TREADWELL'S OFFICE [phone] 3 Acute inflammation: >10.00 4 [facility] Severe Sepsis and Septic Shock Management Bundle Measure requires all lactic acids initially measuring >2.0 mmol/L be repeated. 5 Because ethnic data is not always readily available, this report includes an eGFR for both -Americans and non- Americans. The National Kidney Disease Education Program (NKDEP) does not endorse the use of the MDRD equation for patients that are not between the ages of 18 and 70, are , have extremes of body size, muscle mass, or nutritional status, or are non- or non-. According to the National Kidney Foundation, irrespective of diagnosis, the stage of the disease is based on the level of kidney function: Stage Description GFR(mL/min/1.73 m(2)) 1 Kidney damage with normal or decreased GFR 90 2 Kidney damage with mild decrease in GFR 60-89 3 Moderate decrease in GFR 30-59 4 Severe decrease in GFR 15-29 5 Kidney failure <15 (or dialysis) 6 Result TnIDx:0.05 Called to [id number] at: 17:31:27 by:[email or web address] Read back by: [email or web address] 7 Acute inflammation: >10.00 Procedures Date CPT Code Description Status 03/01/2017 71201 Amputation Toe MP JT Completed 03/01/2017 46748 Amputation Toe MP JT Completed 07/28/2016 96831 Removal Devitalization Tissue Wound Less Than Equal 20 Completed Square CM 06/12/2016 07078 EKG, Interpretation Only Completed 06/08/2016 52395 ECHO Transthorasic Realtime 2D W Doppler & Color Completed [facility] 10/25/2015 97605 ECHO Transthorasic Realtime 2D W Doppler & Color Completed [facility] 06/11/2014 89053 EEG Recording Awake & Drowsy Completed 06/11/2014 00290 EKG, Interpretation Only Completed 06/10/2014 48964 ECHO Transthorasic Realtime 2D W Doppler & Color Completed [facility] Encounters Type Date Location Provider CPT E/M Dx Office Visit 03/05/2017 [facility] [place] 58966 E11.69 7:30a [facility] [place] I48.91 L08.9 J96.11 Office Visit 03/04/2017 7:28a [facility] Mikala-Trewilfredo, 84313 E11.69 Assoc,pc [place] Hospitalists I48.91 L08.9 J96.11 Office Visit 03/[facility]2017 [facility], 52500 E11.69 Assoc,pc [place] Hospitalists I48.91 L08.9 J96.11 Office Visit 03/02/2017 7:23a [facility] Mikala-Trewilfredo, 23192 E11.69 Assoc,pc [place] Hospitalists I48.91 L08.9 J96.11 Office Visit 03/01/2017 3:37p [facility] Alfa Mikala-Deniz, 76833 E11.69 Assoc, [place] Hospitalists L08.9 I48.91 J96.11 Office Visit 02/28/2017 3:40p [facility] [place] [address] E11.40 C.M.A. E11.621 Office Visit 02/28/2017 3:36p [facility] Liseth [place], [place]. 07515 E11.69 Hospitalists L08.9 I48.91 J96.11 Office Visit 02/27/2017 3:35p [facility] Liseth [place], [place]. 57167 E11.69 Hospitalists L08.9 I48.91 J96.11 Office Visit 02/26/2017 8:16a [facility] Mann Treadwell, 55352 E11.69 Infect[facility] [place] M60.076 M86.671 L03.031 L97.519 E11.51 E11.621 E11.40 Office Visit 02/26/2017 3:35p [facility], Liseth Nation N.P. 87215 E11.69 Hospitalists L08.9 I48.91 J96.11 Office Visit 02/26/2017 11:45a [facility] [place] [address] E11.69 C.M.A. L08.9 Office Visit 02/25/2017 3:34p [facility] [place] [address] E11.69 Assoc, Hospitalists L08.9 I48.91 J96.11 Office Visit 02/24/2017 11:12a [facility] Laina Anne M.D. 51727 E11.40 C.M.AEdwin L97.514 Office Visit 02/24/2017 3:33p [facility], [place] [address] E11.69 Hospitalists L08.9 I48.91 J96.11 Office Visit 02/23/2017 3:32p [facility], [place] [address] E11.69 Hospitalists L08.9 I48.91 E66.01 Office Visit 02/23/2017 9:55a [facility] Laina Anne M.D. 91087 E11.40 C.M.A. B35.1 M86.172 Office Visit 08/11/2016 10:00a [facility] [place] [address] [facility] E66.01 E11.40 Office Visit 07/25/2016 3:05p [facility], Rik Richards, 18805 L03.90 [facility]ists [place] I48.91 E11.42 G47.33 Office Visit 07/25/2016 7:00a [facility] [place] [address]8781 L03.115 Of [facility] L97.219 L03.115 E11.22 L97.219 Office Visit 07/24/2016 3:04p [facility] Rik Richards, 32769 E11.42 [facility]ists [place] L03.90 I48.91 G47.33 Office Visit 07/23/2016 3:03p [facility], Dewey Urban, 92326 E11.42 Hospitalists M.D. L03.90 I48.91 G47.33 Office Visit 07/22/2016 3:02p [facility], Dewey Efraínyusuf, 78887 L03.90 Hospitalists M.D. I48.91 E11.42 G47.33 Office Visit 07/21/2016 3:01p [facility], Rik Iliff, 72791 L03.90 Hospitalists M.D. I48.91 E11.42 G47.33 Office Visit 06/15/2016 2:58p [facility], Rik Richards, 22079 I50.9 Hospitalists M.D. E11.9 E66.01 Z79.4 Office Visit 06/14/2016 2:58p [facility], Rik Iliff, 00345 I50.9 Hospitalists M.D. E11.9 E66.01 Z79.4 Office Visit 06/13/2016 2:57p [facility], Amanda Crisostomo, 26060 I50.9 Hospitalists M.D. E11.9 E66.01 Z79.4 Office Visit 06/12/2016 2:57p [facility], Amanda Crisostomo, 37485 I50.9 Hospitalists M.D. E11.9 E66.01 Office Visit 06/11/2016 2:56p [facility], Amanda Kranthi, 29852 I50.9 Hospitalists M.D. E11.9 E66.01 Z79.4 Office Visit 06/10/2016 2:56p [facility], Amanda Kranthi, 41525 I50.9 Hospitalists M.D. E11.9 E66.01 Z79.4 Office Visit 06/09/2016 2:55p [facility], Amanda Hohn, 32210 I50.9 Hospitalists M.D. E66.01 E11.9 Z79.4 Office Visit 06/08/2016 2:54p [facility], Elijah Agrawal M.D. 47968 I50.9 Hospitalists E66.01 E11.9 Z79.4 Office Visit 10/31/2015 11:22a [facility] Dewey Efraínyusuf, 63553 I95.9 Hospitalists M.DEdwin E11.22 I48.0 N18.3 Office Visit 10/30/2015 11:21a [facility] Dewey Efraínyusuf, 98767 I95.9 Hospitalists M.DEdwin E11.22 I48.0 N18.3 Office Visit 10/29/2015 11:21a [facility] Dewey Urban, 17179 I95.9 Hospitalists M.DEdwin E11.22 I48.0 N18.3 Office Visit 10/28/2015 11:20a [facility] Dewey Urban, 51022 I95.9 Hospitalists M.Maura E11.22 I48.0 N18.3 Office Visit 10/26/2015 9:21a [facility] [address] I50.31 Hospitalists J18.9 R65.10 I48.91 Office Visit 10/25/2015 9:20a [facility] [address] I50.31 Hospitalists J18.9 R65.10 I48.91 Office Visit 10/25/2015 3:51p [facility] Sn[place], [address]3832 I48.2 [facility] [place] I50.30 Office Visit 10/24/2015 9:20a [facility] [address] I50.31 Hospitalists R65.10 J18.9 I48.91 Office Visit 10/23/2015 9:19a [facility] [address] I50.31 Hospitalists J18.9 R65.10 I48.91 Office Visit 10/22/2015 9:18a [place], [address] I50.31 Assoc, Hospitalists [place] J18.9 R65.10 I48.91 Office Visit 06/13/2014 10:47a [facility] Amanda Crisostomo, 84880 333.2 [facility]ists [place] 782.3 496 278.01 Office Visit 06/12/2014 10:47a [facility], Amanda Hohn, 92503 333.2 [facility] [place] 496 782.3 278.01 Office Visit 06/11/2014 10:26a [facility] [place] [address] 780.2 Services Of Reliability Specialist 333.2 Office Visit 06/11/2014 10:46a [facility], Rik Richards, 14869 782.3 Hospitalists [place] 994.8 496 250.00 Office Visit 06/10/2014 10:23a [facility] Edelmira Bell, 14679 781.0 Services Of Zac Aquino 333.2 780.2 Office Visit 06/10/2014 10:45a [facility], Rik Richards, 07524 782.3 Hospitalists [place] 496 994.8 250.00 Plan of Care 03/30/2017 - Jose Mckee MDL97.514 Non-prs chronic ulcer oth prt right foot w necrosis of boneFollow up:Follow Up: As needed
[2017-04-27] MEDS ORDERED: Albuterol 2.5 MG/3 ML NEB.SOL* (0.083%) ONE (19:49)
[2017-04-27] MEDS: Albuterol 2.5 MG/3 ML NEB.SOL* (0.083%) INH PRN (19:53)
[2017-04-27] MEDS ORDERED: Vancomycin per Pharmacy* NOTE FOLLOW UP PRN (19:53)
[2017-04-27] MEDS ORDERED: Fluticasone NASAL SPRAY 50MCG* 16 gm SPRAY BTL BOTH NARES PRN (19:55)
[2017-04-27] MEDS ORDERED: Acetaminophen TAB* 325 MG PO PRN (19:58)
[2017-04-27] MEDS ORDERED: Dextrose 50% Syringe 50 ML* 25 GM/50 ML SYRINGE IV PUSH PRN (20:08)
[2017-04-27] MEDS: Vancomycin(*) 750 MG in NS 0.9% 250 ML* 250 ML IVPB SCH (20:51)
[2017-04-27] MEDS: Allopurinol TAB* 300 MG PO SCH (21:10)
[2017-04-27] MEDS: Mometasone/Formoter 200/5 MDI INH SCH (21:10)
[2017-04-27] MEDS: Insulin LISPRO* 1 UNITS UNIT SUBCUT SCH (21:12)
[2017-04-27] MEDS: Docusate CAP* 100 MG PO SCH (21:12)
[2017-04-27] MEDS: Metoprolol Tartrate TAB* 25 MG PO SCH (21:12)
[2017-04-27] MEDS: Senna TAB PO SCH (21:12)
[2017-04-27] MEDS: Heparin VIAL(*) 5000 UNITS/ML VIAL (FIVE THOUSAND) SUBCUT SCH (21:13)
[2017-04-28] MEDS: oxyCODONE TAB* 5 MG TAB PO PRN ×4 (00:19→21:03)
[2017-04-28] MEDS: Levothyroxine TAB* 100 MCG TAB PO SCH (05:31)
[2017-04-28] MEDS: Heparin VIAL(*) 5000 UNITS/ML VIAL (FIVE THOUSAND) SUBCUT SCH ×3 (05:33→21:39)
[2017-04-28 06:20] LABS: EGFR Non-African American 53.7 (>60)
[2017-04-28] MEDS ORDERED: Vancomycin Trough Check NOTE FOLLOW UP ONE (08:30)
[2017-04-28] MEDS: Mometasone/Formoter 200/5 MDI INH SCH ×2 (08:44→19:19)
[2017-04-28] MEDS: Polyethylene Glycol 3350* 17 GM PACKET PO SCH (09:00)
[2017-04-28] MEDS: Insulin ISOPH/REG 70/30 (*) 1 UNITS UNIT SUBCUT SCH ×2 (09:01→17:16)
[2017-04-28] MEDS: Insulin LISPRO* 1 UNITS UNIT SUBCUT SCH ×7 (09:02→21:36)
[2017-04-28] MEDS: glipiZIDE TAB* 5 MG PO SCH ×2 (09:03→17:15)
[2017-04-28] MEDS: Spironolactone TAB* 25 MG PO SCH (09:04)
[2017-04-28] MEDS: Metolazone TAB* 5 MG PO SCH (09:04)
[2017-04-28] MEDS: Metoprolol Tartrate TAB* 25 MG PO SCH ×2 (09:04→20:59)
[2017-04-28] MEDS: Diltiazem CD CAP* 180 MG PO SCH (09:04)
[2017-04-28] MEDS: Torsemide TAB* 20 MG PO SCH ×2 (09:04→16:51)
[2017-04-28] MEDS: Atorvastatin* 40 MG TAB PO SCH (09:04)
[2017-04-28] MEDS: Allopurinol TAB* 300 MG PO SCH ×2 (09:04→20:59)
[2017-04-28] MEDS: Docusate CAP* 100 MG PO SCH ×2 (09:04→20:59)
[2017-04-28] MEDS: Vancomycin(*) 750 MG in NS 0.9% 250 ML* 250 ML IVPB SCH ×2 (10:16→21:11)
[2017-04-28] MEDS: Albuterol 2.5 MG/3 ML NEB.SOL* (0.083%) INH PRN ×2 (12:00→19:19)
[2017-04-28] MEDS ORDERED: Alteplase (CATHFLO)* 2 MG VIAL IV ONE (13:35)
[2017-04-28] MEDS ORDERED: Warfarin TAB(*) 7.5 MG PO SCH (17:00)
[2017-04-28] MEDS: Warfarin TAB(*) 7.5 MG PO SCH (17:15)
[2017-04-28] MEDS: Senna TAB PO SCH (20:59)
[2017-04-29] MEDS: oxyCODONE TAB* 5 MG TAB PO PRN ×4 (01:38→21:08)
[2017-04-29] MEDS: Albuterol 2.5 MG/3 ML NEB.SOL* (0.083%) INH PRN ×3 (02:34→20:06)
[2017-04-29] MEDS: Heparin VIAL(*) 5000 UNITS/ML VIAL (FIVE THOUSAND) SUBCUT SCH ×3 (07:07→21:15)
[2017-04-29] MEDS: Levothyroxine TAB* 100 MCG TAB PO SCH (07:07)
[2017-04-29 07:15] LABS: Hematocrit 30 % (42-52); Hemoglobin 9.4 g/dl (14.0-18.0); Mean Corpuscular HGB Conc 31 g/dl (31-36); Mean Corpuscular Hemoglobin 26 pg (27-31); Mean Corpuscular Volume 85 fL (80-94); Mean Platelet Volume 7 um3 (7.4-10.4); Platelet Count 395 10^3/ul (150-450); Red Blood Count 3.56 10^6/ul (4.0-5.4); Red Cell Distribution Width 18 % (10.5-15)
[2017-04-29 07:24] LABS: INR 1.22 (0.77-1.02)
[2017-04-29 07:27] LABS: EGFR Non-African American 45.6 (>60)
[2017-04-29] MEDS: Mometasone/Formoter 200/5 MDI INH SCH ×2 (07:44→20:01)
[2017-04-29] MEDS: Insulin LISPRO* 1 UNITS UNIT SUBCUT SCH ×7 (09:55→21:09)
[2017-04-29] MEDS: Insulin ISOPH/REG 70/30 (*) 1 UNITS UNIT SUBCUT SCH ×2 (09:55→18:00)
[2017-04-29] MEDS: glipiZIDE TAB* 5 MG PO SCH ×2 (09:56→18:01)
[2017-04-29] MEDS: Diltiazem CD CAP* 180 MG PO SCH (09:56)
[2017-04-29] MEDS: Atorvastatin* 40 MG TAB PO SCH (09:56)
[2017-04-29] MEDS: Allopurinol TAB* 300 MG PO SCH ×2 (09:56→21:07)
[2017-04-29] MEDS: Docusate CAP* 100 MG PO SCH ×2 (09:56→21:07)
[2017-04-29] MEDS: Metolazone TAB* 5 MG PO SCH (09:56)
[2017-04-29] MEDS: Spironolactone TAB* 25 MG PO SCH (09:56)
[2017-04-29] MEDS: Torsemide TAB* 20 MG PO SCH ×2 (09:56→15:45)
[2017-04-29] MEDS: Metoprolol Tartrate TAB* 25 MG PO SCH ×2 (09:57→21:07)
[2017-04-29] MEDS: Polyethylene Glycol 3350* 17 GM PACKET PO SCH (09:58)
[2017-04-29] MEDS: Vancomycin(*) 750 MG in NS 0.9% 250 ML* 250 ML IVPB SCH (09:58)
[2017-04-29] MEDS: Warfarin TAB(*) 7.5 MG PO SCH (18:01)
[2017-04-29] MEDS: Senna TAB PO SCH (21:07)
[2017-04-29] MEDS: Vancomycin(*) 1,000 MG in D5W 250 ML BAG* 250 ML IVPB SCH (21:11)
[2017-04-30] MEDS: oxyCODONE TAB* 5 MG TAB PO PRN ×4 (02:07→19:58)
[2017-04-30] MEDS: Levothyroxine TAB* 100 MCG TAB PO SCH (06:09)
[2017-04-30] MEDS: Heparin VIAL(*) 5000 UNITS/ML VIAL (FIVE THOUSAND) SUBCUT SCH ×3 (06:09→21:21)
[2017-04-30] MEDS: Torsemide TAB* 20 MG PO SCH ×2 (08:35→15:04)
[2017-04-30] MEDS: Diltiazem CD CAP* 180 MG PO SCH (08:36)
[2017-04-30] MEDS: Metolazone TAB* 5 MG PO SCH (08:36)
[2017-04-30] MEDS: Atorvastatin* 40 MG TAB PO SCH (08:37)
[2017-04-30] MEDS: glipiZIDE TAB* 5 MG PO SCH ×2 (08:37→17:47)
[2017-04-30] MEDS: Allopurinol TAB* 300 MG PO SCH ×2 (08:37→19:58)
[2017-04-30] MEDS: Spironolactone TAB* 25 MG PO SCH (08:37)
[2017-04-30] MEDS: Insulin LISPRO* 1 UNITS UNIT SUBCUT SCH ×7 (08:38→21:19)
[2017-04-30] MEDS: Insulin ISOPH/REG 70/30 (*) 1 UNITS UNIT SUBCUT SCH ×2 (08:38→17:44)
[2017-04-30] MEDS: Mometasone/Formoter 200/5 MDI INH SCH ×2 (08:38→19:24)
[2017-04-30] MEDS: Docusate CAP* 100 MG PO SCH ×2 (08:38→19:58)
[2017-04-30] MEDS: Metoprolol Tartrate TAB* 25 MG PO SCH ×2 (08:38→19:58)
[2017-04-30] MEDS: Polyethylene Glycol 3350* 17 GM PACKET PO SCH (08:40)
[2017-04-30] MEDS: Albuterol 2.5 MG/3 ML NEB.SOL* (0.083%) INH PRN ×2 (13:31→19:23)
[2017-04-30] MEDS: Vancomycin(*) 1,000 MG in D5W 250 ML BAG* 250 ML IVPB SCH (14:56)
[2017-04-30] MEDS: Warfarin TAB(*) 7.5 MG PO SCH (17:47)
[2017-04-30] MEDS: Senna TAB PO SCH (19:58)
[2017-04-30] MEDS: Al Hydrox/Mg Hydrox/Simet LIQ* 30 ML UDC PO PRN (20:13)
[2017-05-01] MEDS: oxyCODONE TAB* 5 MG TAB PO PRN ×6 (00:11→23:16)
[2017-05-01] MEDS: Heparin VIAL(*) 5000 UNITS/ML VIAL (FIVE THOUSAND) SUBCUT SCH ×3 (05:34→22:08)
[2017-05-01] MEDS: Levothyroxine TAB* 100 MCG TAB PO SCH (05:35)
[2017-05-01] MEDS: Mometasone/Formoter 200/5 MDI INH SCH ×2 (07:52→20:08)
[2017-05-01] MEDS: Insulin LISPRO* 1 UNITS UNIT SUBCUT SCH ×7 (08:13→22:07)
[2017-05-01] MEDS: Insulin ISOPH/REG 70/30 (*) 1 UNITS UNIT SUBCUT SCH ×2 (08:13→17:12)
[2017-05-01] MEDS: Diltiazem CD CAP* 180 MG PO SCH (08:19)
[2017-05-01] MEDS: Atorvastatin* 40 MG TAB PO SCH (08:19)
[2017-05-01] MEDS: Spironolactone TAB* 25 MG PO SCH (08:19)
[2017-05-01] MEDS: Metolazone TAB* 5 MG PO SCH (08:19)
[2017-05-01] MEDS: Polyethylene Glycol 3350* 17 GM PACKET PO SCH (08:19)
[2017-05-01] MEDS: Docusate CAP* 100 MG PO SCH ×2 (08:19→21:02)
[2017-05-01] MEDS: Allopurinol TAB* 300 MG PO SCH ×2 (08:19→21:02)
[2017-05-01] MEDS: Metoprolol Tartrate TAB* 25 MG PO SCH ×2 (08:20→21:02)
[2017-05-01] MEDS: glipiZIDE TAB* 5 MG PO SCH ×2 (08:20→17:12)
[2017-05-01] MEDS ORDERED: Vancomycin Trough Check NOTE FOLLOW UP ONE (08:30)
[2017-05-01 08:51] LABS: EGFR Non-African American 42.2 (>60)
[2017-05-01 09:06] LABS: Vancomycin Trough 15.8 mcg/mL
[2017-05-01] MEDS: Vancomycin(*) 1,000 MG in D5W 250 ML BAG* 250 ML IVPB SCH (09:46)
[2017-05-01] MEDS: Torsemide TAB* 20 MG PO SCH ×2 (09:46→15:20)
[2017-05-01] MEDS: Al Hydrox/Mg Hydrox/Simet LIQ* 30 ML UDC PO PRN (09:53)
[2017-05-01] MEDS: Warfarin TAB(*) 7.5 MG PO SCH (17:12)
[2017-05-01] MEDS: Albuterol 2.5 MG/3 ML NEB.SOL* (0.083%) INH PRN (20:06)
[2017-05-01] MEDS: Senna TAB PO SCH (21:03)
[2017-05-02] MEDS: Vancomycin(*) 1,000 MG in D5W 250 ML BAG* 250 ML IVPB SCH ×2 (03:00→21:00)
[2017-05-02] MEDS: Heparin VIAL(*) 5000 UNITS/ML VIAL (FIVE THOUSAND) SUBCUT SCH ×3 (05:50→22:05)
[2017-05-02] MEDS: Levothyroxine TAB* 100 MCG TAB PO SCH (05:50)
[2017-05-02] MEDS: oxyCODONE TAB* 5 MG TAB PO PRN ×4 (06:01→21:06)
[2017-05-02] MEDS: Mometasone/Formoter 200/5 MDI INH SCH ×2 (07:35→20:37)
[2017-05-02] MEDS: Polyethylene Glycol 3350* 17 GM PACKET PO SCH (08:10)
[2017-05-02] MEDS: Docusate CAP* 100 MG PO SCH ×2 (08:10→20:12)
[2017-05-02] MEDS: Atorvastatin* 40 MG TAB PO SCH (08:22)
[2017-05-02] MEDS: Metoprolol Tartrate TAB* 25 MG PO SCH ×2 (08:22→20:12)
[2017-05-02] MEDS: Allopurinol TAB* 300 MG PO SCH ×2 (08:22→20:12)
[2017-05-02] MEDS: Diltiazem CD CAP* 180 MG PO SCH (08:22)
[2017-05-02] MEDS: Spironolactone TAB* 25 MG PO SCH (08:22)
[2017-05-02] MEDS: glipiZIDE TAB* 5 MG PO SCH ×2 (08:22→17:15)
[2017-05-02] MEDS: Metolazone TAB* 5 MG PO SCH (08:22)
[2017-05-02] MEDS: Insulin LISPRO* 1 UNITS UNIT SUBCUT SCH ×7 (08:23→20:11)
[2017-05-02] MEDS: Insulin ISOPH/REG 70/30 (*) 1 UNITS UNIT SUBCUT SCH ×2 (08:24→17:16)
[2017-05-02] MEDS: Torsemide TAB* 20 MG PO SCH ×2 (09:00→15:38)
[2017-05-02 09:19] LABS: INR 1.23 (0.77-1.02)
[2017-05-02] MEDS: Albuterol 2.5 MG/3 ML NEB.SOL* (0.083%) INH PRN ×2 (11:41→20:38)
[2017-05-02] MEDS: Warfarin TAB(*) 10 MG PO SCH (17:15)
[2017-05-02] MEDS: Senna TAB PO SCH (20:12)
[2017-05-03] MEDS: oxyCODONE TAB* 5 MG TAB PO PRN ×4 (02:20→20:15)
[2017-05-03] MEDS: Heparin VIAL(*) 5000 UNITS/ML VIAL (FIVE THOUSAND) SUBCUT SCH ×3 (05:21→22:25)
[2017-05-03] MEDS: Levothyroxine TAB* 100 MCG TAB PO SCH (05:21)
[2017-05-03] MEDS: Albuterol 2.5 MG/3 ML NEB.SOL* (0.083%) INH PRN ×3 (06:16→20:41)
[2017-05-03] MEDS: Insulin LISPRO* 1 UNITS UNIT SUBCUT SCH ×7 (08:10→22:25)
[2017-05-03] MEDS: Insulin ISOPH/REG 70/30 (*) 1 UNITS UNIT SUBCUT SCH ×2 (08:21→17:27)
[2017-05-03] MEDS: Metolazone TAB* 5 MG PO SCH (08:22)
[2017-05-03] MEDS: glipiZIDE TAB* 5 MG PO SCH ×2 (08:23→17:27)
[2017-05-03] MEDS: Mometasone/Formoter 200/5 MDI INH SCH ×2 (08:55→20:43)
[2017-05-03] MEDS: Polyethylene Glycol 3350* 17 GM PACKET PO SCH (09:38)
[2017-05-03] MEDS: Diltiazem CD CAP* 180 MG PO SCH (09:39)
[2017-05-03] MEDS: Torsemide TAB* 20 MG PO SCH ×2 (09:39→15:07)
[2017-05-03] MEDS: Spironolactone TAB* 25 MG PO SCH (09:39)
[2017-05-03] MEDS: Docusate CAP* 100 MG PO SCH ×2 (09:39→20:15)
[2017-05-03] MEDS: Allopurinol TAB* 300 MG PO SCH ×2 (09:39→20:15)
[2017-05-03] MEDS: Atorvastatin* 40 MG TAB PO SCH (09:39)
[2017-05-03] MEDS: Metoprolol Tartrate TAB* 25 MG PO SCH ×2 (09:39→20:15)
--- NOTE | 2017-05-03 13:28 | PN ---
Progress Note - Progress Note Date of Service: 05/03/17 SOAP: Subjective: []Patient was seen at bedside. He continues to have some left heal pain. Confirms he is eager to get out of the hospital and has a bed at [facility] where he will be transferred tomorrow. Objective: [] Vital Signs Temp 98.4 F 05/03/17 08:16 Pulse 85 05/03/17 13:46 Resp 20 05/03/17 12:14 BP 124/55 05/03/17 13:46 Pulse Ox 97 05/03/17 08:16 Intake & Output 05/02/17 05/03/17 05/03/17 18:59 06:59 18:59 Intake Total 1590 921 Output Total 1550 2650 350 Balance 40 -1729 -350 Weight 444 lb 9.6 oz Intake: IV Fluids 0 NS (0.9%) 0 IVPB 281 ABX - VANCOMYCIN 281 Oral 1590 640 Output: Urine 1550 2650 350 Other: Estimated Void Medium # Bowel Movements 0 # Voids 3 3 Laboratory Last Values WBC 13.0 10^3/ul (3.5-10.8) H 04/29/17 06:55 RBC 3.56 10^6/ul (4.0-5.4) L 04/29/17 06:55 Hgb 9.4 g/dl (14.0-18.0) L 04/29/17 06:55 Hct 30 % (42-52) L 04/29/17 06:55 MCV 85 fL (80-94) 04/29/17 06:55 MCH 26 pg (27-31) L 04/29/17 06:55 MCHC 31 g/dl (31-36) 04/29/17 06:55 RDW 18 % (10.5-15) H 04/29/17 06:55 Plt Count 395 10^3/ul (150-450) 04/29/17 06:55 MPV 7 um3 (7.4-10.4) L 04/29/17 06:55 INR (Anticoag Therapy) 1.23 (0.77-1.02) H 05/02/17 09:05 Sodium 129 mmol/L (133-145) L 04/29/17 06:55 Potassium 4.3 mmol/L (3.5-5.0) 04/29/17 06:55 Chloride 93 mmol/L (101-111) L 04/29/17 06:55 Carbon Dioxide 33 mmol/L (22-32) H 04/29/17 06:55 Anion Gap 3 mmol/L (2-11) 04/29/17 06:55 BUN 85 mg/dL (6-24) H 05/01/17 08:20 Creatinine 1.71 mg/dL (0.67-1.17) H 05/01/17 08:20 Est GFR ( Amer) 54.3 (>60) 05/01/17 08:20 Est GFR (Non-Af Amer) 42.2 (>60) 05/01/17 08:20 BUN/Creatinine Ratio 51.9 (8-20) H 04/29/17 06:55 Glucose 185 mg/dL (70-100) H 04/29/17 06:55 POC Glucose (mg/dL) 196 mg/dL (70-100) H 05/03/17 11:31 Calcium 9.0 mg/dL (8.6-10.3) 04/29/17 06:55 Total Bilirubin 0.30 mg/dL (0.2-1.0) 04/29/17 06:55 AST 28 U/L (13-39) 04/29/17 06:55 ALT 50 U/L (7-52) 04/29/17 06:55 Alkaline Phosphatase 217 U/L (34-104) H 04/29/17 06:55 C-Reactive Protein 46.88 mg/L (< 5.00) H 04/29/17 06:55 Total Protein 6.9 g/dL (6.4-8.9) 04/29/17 06:55 Albumin 2.8 g/dL (3.2-5.2) L 04/29/17 06:55 Globulin 4.1 g/dL (2-4) H 04/29/17 06:55 Albumin/Globulin Ratio 0.7 (1-3) L 04/29/17 06:55 Vancomycin Trough 15.8 mcg/mL 05/01/17 08:20 General: Laying in bed, NAD. Calm and cooperative LLE: Dressing clean, dry and intact. Re-secured with tape. No foul odor. +DF/ PF. Lacks sensation distally. + sensation proximal to dressing. Assessment: []s/p I&D left foot by Dr. Mckee 04/19/17 Plan: []NWB LLE Guidance on when he may bear weight to be determined by Dr. Mckee at follow up. Continue antibiotics per ID: Vanco goal tr 15-20; day 14/28 with weekly cbc, cmp , crp, vanco
[2017-05-03] MEDS: Vancomycin(*) 1,000 MG in D5W 250 ML BAG* 250 ML IVPB SCH (15:08)
[2017-05-03] MEDS: Warfarin TAB(*) 10 MG PO SCH (17:26)
[2017-05-03] MEDS: Senna TAB PO SCH (20:15)
[2017-05-03] MEDS: Al Hydrox/Mg Hydrox/Simet LIQ* 30 ML UDC PO PRN (20:15)
--- NOTE | 2017-05-03 20:32 | PN ---
Subjective Date of Service: 05/03/17 Interval History: Complaint on dizziness (first when head back during self bed transfer) but returned in afternoon. right foot hurting. Bed offer to [facility] for 11am. no BM for two days. Objective Active Medications: Acetaminophen (Tylenol Tab*) 650 mg PO Q4H PRN PRN Reason: FEVER/PAIN Al Hydrox/Mg Hydrox/Simethicone (Maalox Plus*) 30 ml PO Q6H PRN PRN Reason: INDIGESTION Last Admin: 05/03/17 20:15 Dose: 30 ml Albuterol (Ventolin 2.5 Mg/3 Ml Neb.Christy*) 2.5 mg INH Q4H PRN PRN Reason: SOB/WHEEZING Last Admin: 05/03/17 14:58 Dose: 2.5 mg Allopurinol (Zyloprim Tab*) 300 mg PO BID [facility] Last Admin: 05/03/17 20:15 Dose: 300 mg Atorvastatin Calcium (Lipitor*) 40 mg PO DAILY [facility] Last Admin: 05/03/17 09:39 Dose: 40 mg Dextrose (D50w Syringe 50 Ml*) 12.5 gm IV PUSH .FOR FS < 60 - SS PRN PRN Reason: FS < 60 Diltiazem HCl (Cardizem Cd Cap*) 360 mg PO DAILY [facility] Last Admin: 05/03/17 09:39 Dose: 360 mg Docusate Sodium (Colace Cap*) 100 mg PO BID [facility] Last Admin: 05/03/17 20:15 Dose: 100 mg Fluticasone Propionate (Flonase Nasal Union 50mcg*) 2 spray BOTH NARES DAILY PRN PRN Reason: ALLERGY SYMPTOMS Glipizide (Glucotrol Tab*) 5 mg PO 0800,1700 [facility] Last Admin: 05/03/17 17:27 Dose: 5 mg Heparin Sodium (Porcine) (Heparin Vial(*)) 5,000 units SUBCUT Q8HR [facility] Last Admin: 05/03/17 14:51 Dose: 5,000 units Heparin Sodium (Porcine) (Heparin Flush Picc/Ml/Cvc(*)) 1 - 3 ml FLUSH 0600, 1800 [facility] PRN Reason: Protocol Last Admin: 05/03/17 17:27 Dose: 1 ml Vancomycin HCl 1,000 mg/ (Dextrose) 250 mls @ 166.667 mls/hr IVPB Q18H [facility] Last Admin: 05/03/17 15:08 Dose: 166.667 mls/hr Insulin Human Isoph/Insulin Regular (Humulin 70/30 (*)) 100 units SUBCUT 0800, 1700 [facility] Last Admin: 05/03/17 17:27 Dose: 100 units Insulin Human Lispro (Humalog*) 0 units SUBCUT ACHS [facility] PRN Reason: Protocol Last Admin: 05/03/17 17:28 Dose: 2 unit Insulin Human Lispro (Humalog*) 10 units SUBCUT AC [facility] Last Admin: 05/03/17 17:28 Dose: 10 units Lactulose (Lactulose*) 30 ml PO DAILY PRN PRN Reason: CONSTIPATION Last Admin: 05/03/17 14:52 Dose: 30 ml Levothyroxine Sodium (Synthroid Tab*) 200 mcg PO DAILY@0600 [facility] Last Admin: 05/03/17 05:21 Dose: 200 mcg Metolazone (Zaroxolyn Tab*) 5 mg PO DAILY@0830 [facility] Last Admin: 05/03/17 08:22 Dose: 5 mg Metoprolol Tartrate (Lopressor Tab*) 25 mg PO BID [facility] Last Admin: 05/03/17 20:15 Dose: 25 mg Mometasone Furoate/Formoterol Fumar (Dulera 200/5 Mdi*) 2 puff INH BID [facility] Last Admin: 05/03/17 08:55 Dose: 2 puff Oxycodone HCl (Roxycodone Tab*) 10 mg PO Q4H PRN PRN Reason: PAIN - MODERATE TO SEVERE Last Admin: 05/03/17 20:15 Dose: 10 mg Pharmacy Consult (Vancomycin Per Pharmacy*) 1 note FOLLOW UP . PRN PRN Reason: PER PROTOCOL Pharmacy Profile Note (Vancomycin Trough Check) 1 note FOLLOW UP 0900 ONE Stop: 05/04/17 09:01 Polyethylene Glycol/Electrolytes (Miralax*) 17 gm PO DAILY [facility] Last Admin: 05/03/17 09:38 Dose: 17 gm Senna (Senokot Tab*) 2 tab PO BEDTIME [facility] Last Admin: 05/03/17 20:15 Dose: 2 tab Spironolactone (Aldactone Tab*) 50 mg PO DAILY [facility] Last Admin: 05/03/17 09:39 Dose: 50 mg Torsemide (Demadex*) 40 mg PO 0900,1600 [facility] Last Admin: 05/03/17 15:07 Dose: Not Given Warfarin Sodium (Coumadin Tab(*)) 10 mg PO DAILY@1700 [facility] PRN Reason: Protocol Last Admin: 05/03/17 17:26 Dose: 10 mg Vital Signs - 8 hr 05/03/17 05/03/17 05/03/17 13:46 14:52 14:55 Temperature Pulse Rate 85 76 Respiratory 22 Rate Blood Pressure 124/55 (mmHg) 05/03/17 05/03/17 05/03/17 17:25 17:41 20:12 Temperature 98.6 F Pulse Rate 68 Respiratory 20 18 20 Rate Blood Pressure 149/56 (mmHg) 05/03/17 20:15 Temperature Pulse Rate Respiratory 20 Rate Blood Pressure (mmHg) Oxygen Devices in Use Now: Nasal Cannula Appearance: Chronically ill appearing. NAD Eyes: No Scleral Icterus, PERRLA Ears/Nose/Mouth/Throat: Mucous Membranes Moist Neck: NL Appearance and Movements; NL JVP, Trachea Midline Respiratory: Symmetrical Chest Expansion and Respiratory Effort, Clear to Auscultation Cardiovascular: NL Sounds; No Murmurs; No JVD, No Edema Abdominal: - - morbidly obese, umbilical hernia. nontender Skin: No Nodules or Sclerosis, - - bandage left foot with no strikethrough. right 2nd toe amputated. erythema b/l Neurological: Alert and Oriented x 3 Lines/Tubes/Other Access: Clean, Dry and Intact PICC Line - LUE Result Diagrams: 04/29/17 06:55 05/01/17 08:20 Additional Lab and Data: Laboratory Results - last 24 hr 05/03/17 05/03/17 05/03/17 07:46 11:31 16:51 POC Glucose (mg/dL) 128 H 196 H 158 H 05/03/17 20:10 POC Glucose (mg/dL) 151 H Assess/Plan/Problems-Billing Assessment: - Patient Problems (1) Cellulitis of left lower extremity Current Visit: No Status: Acute Code(s): L03.116 - CELLULITIS OF LEFT LOWER LIMB SNOMED Code(s): 169019084 Comment: L foot/ankle cellulitis and abscess s/p I&D and L ankle arthrotomy , exploration and drainage on 04/19/17. dry sterile dressing changes. Follow up with Dr. Mckee early May. Today is D#14/ of vancomycin for MRSA bacteremia. Planned to [facility] 05/04. (2) CKD (chronic kidney disease) stage 3, GFR 30-59 ml/min Current Visit: No Status: Acute Code(s): N18.3 - CHRONIC KIDNEY DISEASE, STAGE 3 (MODERATE) SNOMED Code(s): 019490454 Comment: Creatinine is stable. (3) Chronic respiratory failure Current Visit: No Status: Acute Code(s): J96.10 - CHRONIC RESPIRATORY FAILURE, UNSP W HYPOXIA OR HYPERCAPNIA SNOMED Code(s): 25692864 Comment: Pt with chronic hypoxic respiratory failure secondary to COPD and obesity hypoventilation syndrome. Continue supplemental O2. Respiratory status is stable. (4) Diabetes mellitus Current Visit: No Status: Acute Code(s): E11.9 - TYPE 2 DIABETES MELLITUS WITHOUT COMPLICATIONS SNOMED Code(s): 43900815 Comment: continue 70/30 100units SQ BID, lispro 10 units with each meal standing in addition to sliding scale and glipizide. (5) Diastolic CHF, chronic Current Visit: No Status: Acute Code(s): I50.32 - CHRONIC DIASTOLIC ( CONGESTIVE) HEART FAILURE SNOMED Code(s): 637239851 Comment: Pt appears euvolemic. Continue metolazone, torsemide and spironolactone. Status and Disposition: [facility] d/c 05/04 to [facility] Attending: Dennis Cervantes
[2017-05-04] MEDS ORDERED: Insulin LISPRO* 1 UNITS UNIT SUBCUT SCH (00:51)
[2017-05-04] MEDS: Heparin VIAL(*) 5000 UNITS/ML VIAL (FIVE THOUSAND) SUBCUT SCH (05:56)
[2017-05-04 07:24] VITALS: BP 135/60
[2017-05-04] MEDS: Levothyroxine TAB* 100 MCG TAB PO SCH ×2 (07:24→08:17)
[2017-05-04] MEDS: oxyCODONE TAB* 5 MG TAB PO PRN (07:39)
[2017-05-04] MEDS: Metolazone TAB* 5 MG PO SCH (07:39)
[2017-05-04] MEDS: Insulin LISPRO* 1 UNITS UNIT SUBCUT SCH (07:40)
[2017-05-04] MEDS: Insulin ISOPH/REG 70/30 (*) 1 UNITS UNIT SUBCUT SCH (07:41)
[2017-05-04] MEDS: Mometasone/Formoter 200/5 MDI INH SCH (07:58)
[2017-05-04] MEDS: Vancomycin(*) 1,000 MG in D5W 250 ML BAG* 250 ML IVPB SCH ×2 (08:16→10:00)
[2017-05-04] MEDS: Polyethylene Glycol 3350* 17 GM PACKET PO SCH (08:16)
[2017-05-04] MEDS: Atorvastatin* 40 MG TAB PO SCH (08:17)
[2017-05-04] MEDS: Allopurinol TAB* 300 MG PO SCH (08:17)
[2017-05-04] MEDS: Metoprolol Tartrate TAB* 25 MG PO SCH (08:17)
[2017-05-04] MEDS: Diltiazem CD CAP* 180 MG PO SCH (08:17)
[2017-05-04] MEDS: Docusate CAP* 100 MG PO SCH (08:17)
[2017-05-04] MEDS: Spironolactone TAB* 25 MG PO SCH (08:18)
[2017-05-04] MEDS: Torsemide TAB* 20 MG PO SCH (08:18)
[2017-05-04] MEDS ORDERED: Vancomycin Trough Check NOTE FOLLOW UP ONE (09:00)
[2017-05-04 09:50] LABS: Vancomycin Trough 16.3 mcg/mL
--- NOTE | 2017-05-04 10:09 | DS ---
DISCHARGE SUMMARY DATE OF ADMISSION: 04/15/2017 DATE OF DISCHARGE TO SWING BED STATUS: 04/27/2017 DATE OF DISCHARGE TO RETIREMENT FACILITY: 05/04/17 PRIMARY CARE PROVIDER: Dr. Plasencia PRINCIPAL DIAGNOSES: 1. MRSA bacteremia. 2. MRSA left foot abscess. SECONDARY DIAGNOSES: 1. Type 2 diabetes with neuropathy and nephropathy. 2. Morbid obesity. 3. Obstructive sleep apnea. 4. Chronic hypoxic respiratory failure on 5L O2 at baseline. 5. History of deep vein thrombosis and pulmonary embolus. 6. Stage 3 chronic kidney disease. 7. Hyperlipidemia. 8. Hypertension. 9. Peripheral vascular disease. 10. Hypothyroidism. HISTORY OF PRESENT ILLNESS AND HOSPITAL COURSE: Mr. Anderson is a 51-year-old male initially presented to the emergency room on 04/15/17 with leg pain. He was noted to have a marked leukocytosis and exam concerning for cellulitis of the left lower extremity. He had venous Doppler 04/15/17 with no evidence of left DVT and had patent left posterior tibial veins. Peroneal veins could not be assessed given soft tissue edema. A lower extremity MRI showed a multilocular abscess collection of the dorsum of the foot versus advanced arterial arthropathy. Orthopedics was consulted. Dr. Mendoza performed aspiration on 04/17/17 with a few drops of blood, bloody fluid obtained, which was eventually positive for MRSA. Dr. Fierro of Infectious Disease was consulted. Patient was treated for MRSA bacteremia with vancomycin. Dr. Bhagat of Orthopedics recommended irrigation and debridement. He was taken to the operating room on 04/19/17 and underwent left ankle arthrotomy, exploration, drainage and irrigation, debridement of a deep ankle abscess hematoma. Patient has really been nonweightbearing on his left lower extremity since the procedure. Initially there were drains, but they have since been removed. He is currently on day #15 of planned 28 day course of IV vancomycin with a goal trough 15-20. He will need weekly CBC, CMP, CRP and vancomycin trough. Additionally he will need followup of is INR which has been subtherapeutic ( given his history of DVT and PE) as his Coumadin was held during the surgery. His Coumadin dose was increased to 10 mg daily from initially 7.5 mg. Patient restarted at 7.5 on 04/28/17, got 4 doses and then increased to 10 mg on 12/27/ 17. Last INR was 1.23 on 05/02/17 and should have repeat testing in a few days. Due to his other chronic medical conditions he has been on his chronic 5L of oxygen continuously. His A1c for his uncontrolled type 2 diabetes was 8.4%. He was continued on his home insulin regimen of Humulin 70/30 100 units b.i.d. with Lispro 10 units with each meal. Glipizide 5 mg twice daily was added initially as his blood sugars were in the higher range above 200, but he complained of some dizziness with this medication and will be stopped. He should have fingerstick glucose tests with each meal and at nighttime. May need additional adjustment of his 70/30, though the sugars have been better controlled in the mid 100s nevertheless. Patient has stage 3 chronic kidney disease. Creatinine on 05/01/17 was 1.71. He will need to follow with Dr. Bhagat. Please send lab results of the weekly CMP, CBC, CRP and vanc trough to Dr. Fierro's office. DISCHARGE MEDICATIONS: Include: 1. Tylenol 650 mg p.o. every 4 hours p.r.n. 2. Maalox 30 mL p.o. every 6 hours p.r.n. 3. Albuterol 1 neb inhaled every 4 hours p.r.n. shortness of breath. 4. Allopurinol 300 mg p.o. b.i.d. 5. Lipitor 40 mg daily. 6. Diltiazem CD 360 mg p.o. daily. 7. Colace 100 mg p.o. daily. 8. Flonase both nostrils daily p.r.n. 9. Heparin flush per PICC protocol. 10. Humulin 70/30 100 units b.i.d. 11. Lispro 10 units q.a.c. 12. Lispro sliding scale q.a.c. q.h.s. 13. Lactulose 30 mL p.o. daily p.r.n. constipation. 14. Levothyroxine 200 mcg p.o. daily. 15. Metolazone 5 mg p.o. daily. 16. Metoprolol tartrate 25 mg p.o. b.i.d. 17. Dulera 200/5 2 puffs inhaled b.i.d. 18. Oxycodone 10 mg p.o. every 4 hours p.r.n. 19. MiraLAX 17 g p.o. daily. 20. Senna tab 2 tabs p.o. q.h.s. 21. Spironolactone 15 mg p.o. daily. 22. Torsemide 40 mg p.o. b.i.d. (0900 and 1600). 23. Vancomycin, with goal trough 15-20, currently at 1000 mg every 18 hours. 24. Coumadin 10 mg p.o. daily. ACTIVITY LEVEL: Nonweightbearing left lower extremity. DIET: Carbohydrate consistent, heart healthy. FOLLOWUP: Please followup with Dr. Plasencia after discharge from group home facility and with Dr. Bhagat within 7-10 days. TIME SPENT ON DISCHARGE: 35 minutes. [id number]/[facility] #: [id number] MTDD
== END 2017-05-04 12:10 | DRG 724 ==
LOC: MED 17:50
PROVIDERS: ADMIT Hospitalist; ATTEND Internal Medicine
DX: R78.81 Bacteremia (principal); J96.10 Chronic respiratory failure, unspecified whether with hypoxia or hypercapnia; E11.21 Type 2 diabetes mellitus with diabetic nephropathy; L03.116 Cellulitis of left lower limb; E11.40 Type 2 diabetes mellitus with diabetic neuropathy, unspecified; E66.01 Morbid (severe) obesity due to excess calories; L02.612 Cutaneous abscess of left foot; I50.32 Chronic diastolic (congestive) heart failure; I13.0 Hypertensive heart and chronic kidney disease with heart failure and stage 1 through stage 4 chronic kidney disease, or unspecified chronic kidney disease; Z68.44 Body mass index [BMI] 60.0-69.9, adult; N18.3 Chronic kidney disease, stage 3 (moderate); E11.22 Type 2 diabetes mellitus with diabetic chronic kidney disease; E11.51 Type 2 diabetes mellitus with diabetic peripheral angiopathy without gangrene; G47.33 Obstructive sleep apnea (adult) (pediatric); E78.5 Hyperlipidemia, unspecified; E03.9 Hypothyroidism, unspecified; E11.618 Type 2 diabetes mellitus with other diabetic arthropathy; B95.62 Methicillin resistant Staphylococcus aureus infection as the cause of diseases classified elsewhere; Z99.81 Dependence on supplemental oxygen; Z79.01 Long term (current) use of anticoagulants; Z86.718 Personal history of other venous thrombosis and embolism; Z86.711 Personal history of pulmonary embolism; Z89.421 Acquired absence of other right toe(s); Z79.4 Long term (current) use of insulin; R42 Dizziness and giddiness; T38.3X5A Adverse effect of insulin and oral hypoglycemic [antidiabetic] drugs, initial encounter; Y92.239 Unspecified place in hospital as the place of occurrence of the external cause
CPT/HCPCS: 36415; 80053; 80202; 82565; 84520; 85027; 85610; 86140; 94640; 94668; 94760; A9270-GY; J1644; J2997; J3370

== ENCOUNTER 2017-06-20 05:40 | Inpatient (IN) | payer BC, MEDICARE ==
[2017-06-20] MEDS ORDERED: Vancomycin(*) 1,000 MG in NS 0.9% 250 ML* 250 ML IVPB ONE (05:56)
[2017-06-20] MEDS ORDERED: Acetaminophen TAB* 325 MG PO ONE (05:57)
[2017-06-20] MEDS ORDERED: NS 0.9% 1000 ML* 2,000 ML IV ONE (05:57)
[2017-06-20] MEDS ORDERED: Piperacillin/Tazobac ADVAN(*) 3.375 GM in NS 0.9% 100 ML* 100 ML IVPB ONE (05:57)
[2017-06-20] MEDS ORDERED: Ondansetron INJ* 2 MG/ML VIAL IV ONE (05:58)
[2017-06-20] MEDS ORDERED: Morphine INJ* 10 MG/ML 1 ML CARPUJECT IV ONE (05:58)
[2017-06-20] MEDS ORDERED: Ibuprofen TAB* 800 MG PO ONE (06:12)
[2017-06-20] MEDS ORDERED: NS 0.9% 250 ML* 500 ML ONE (06:14)
[2017-06-20 06:47] LABS: ABS Basophils 0.1 10^3/ul (0-0.2); ABS Eosinophils 0.1 10^3/ul (0-0.6); ABS Lymphocytes 0.6 10^3/ul (1.0-4.8); ABS Monocytes 1.4 10^3/ul (0-0.8); ABS Neutrophils 14.5 10^3/ul (1.5-7.7); ABS Nucleated RBC 0 10^3/ul; Eosinophil % 0.5 % (0-6); Hematocrit 27 % (42-52); Hemoglobin 8.6 g/dl (14.0-18.0); Lymphocyte % 3.7 % (25-47); Mean Corpuscular HGB Conc 32 g/dl (31-36); Mean Corpuscular Hemoglobin 27 pg (27-31); Mean Corpuscular Volume 84 fL (80-94); Mean Platelet Volume 7 um3 (7.4-10.4); Nucleated Red Blood Cells % 0; Platelet Count 556 10^3/ul (150-450); Red Blood Count 3.23 10^6/ul (4.0-5.4); Red Cell Distribution Width 18 % (10.5-15); White Blood Count 16.7 10^3/ul (3.5-10.8)
--- NOTE | 2017-06-20 07:00 | ED ---
Jose Obrien Thomas, scribed for Wang Berry MD on 06/20/17 at 0604 . Lower Extremity - HPI Summary HPI Summary: The patient is a 51 year old male brought in by ambulance with a swollen erythematous left foot for the last week. He has pain to the left foot. He denies nausea, vomiting, diarrhea, and shortness of breath. He weighs over 400 pounds and is an insulin-dependent diabetic. He lives with his . Past medical history includes pulmonary embolism. He started Xarelto three weeks ago. - History of Current Complaint Chief Complaint: EDExtremityLower Stated Complaint: FOOT INFECTION Time Seen by Provider: 06/20/17 05:55 Hx Obtained From: Patient Onset of Pain: Days - onset week ago Onset/Duration: Still Present Severity Currently: Severe Pain Intensity: 9 Pain Scale Used: 0-10 Numeric Timing: Constant Location: Is Discrete @ - left foot Associated Signs And Symptoms: Positive: Swelling, Redness. Negative: Other - N /V/D, SOB Alleviating Factor(s): Nothing - Allergies/Home Medications Allergies/Adverse Reactions: Allergies Allergy/AdvReac Type Severity Reaction Status Date / Time MS Tigecycline [Tigecycline] Allergy Rash Verified 07/21/16 00:29 PMH/Surg Hx/FS Hx/Imm Hx Endocrine/Hematology History: Reports: Hx Diabetes - IDDM, Hx Thyroid Disease, Hx Anemia Cardiovascular History: Reports: Hx Atrial Fibrillation, Hx Congestive Heart Failure, Hx Deep Vein Thrombosis, Hx Embolism, Hx Hypercholesterolemia, Hx Hypertension, Hx Peripheral Vascular Disease, Other Cardiovascular Problems/ Disorders - cardiomyopathy, IDDM, CHRONIC RENAL FAILURE, MORBID OBESITY Denies: Hx Pacemaker/ICD Respiratory History: Reports: Hx Asthma, Hx Chronic Obstructive Pulmonary Disease (COPD) - on 5L home O2, Hx Pneumonia, Hx Pulmonary Embolism, Hx Sleep Apnea - compliant with cpap, Other Respiratory Problems/Disorders - SLEEP APNEA History: Reports: Hx Chronic Renal Failure Comment Only: Other Problems/Disorders - CKD Musculoskeletal History: Reports: Hx Arthritis, Hx Back Problems, Hx Gout Sensory History: Denies: Hx Cataracts, Hx Contacts or Glasses, Hx Eye Injury, Hx Hearing Aid, Hx Hearing Problem, Other Sensory Impairments Opthamlomology History: Denies: Hx Cataracts, Hx Contacts or Glasses, Hx Eye Injury, Other Sensory Impairments Psychiatric History: Denies: Hx Panic Disorder - Surgical History Surgery Procedure, Year, and Place: WOUND DEBRIDING 1989, R 2nd toe amputation, 2017 - Immunization History Date of Tetanus Vaccine: utd Date of Influenza Vaccine: fall 2014 Infectious Disease History: No Infectious Disease History: Reports: Hx of Known/Suspected MRSA Denies: Hx Shingles, Hx Tuberculosis, History Other Infectious Disease, Traveled Outside the [place] in Last 30 Days - Family History Known Family History: Positive: Unknown, Cardiac Disease, Diabetes - Social History Lives: With Family Alcohol Use: None Hx Substance Use: No Substance Use Type: Reports: None Hx Tobacco Use: Yes Smoking Status (MU): Former Smoker Type: Cigars Review of Systems Negative: Fever Negative: Shortness Of Breath Negative: Vomiting, Diarrhea, Nausea Positive: Other - Swollen red left foot All Other Systems Reviewed And Are Negative: Yes Physical Exam - Summary Physical Exam Summary: VITAL SIGNS: Reviewed. GENERAL: Patient is a morbidly obese MALE who is lying comfortable in the stretcher. Patient is not in any acute respiratory distress. HEAD AND FACE: No signs of trauma. No ecchymosis, hematomas or skull depressions. No sinus tenderness. EYES: PERRLA, EOMI x 2, No injected conjunctiva, no nystagmus. EARS: Hearing grossly intact. Ear canals and tympanic membranes are within normal limits. MOUTH: Oropharynx within normal limits. NECK: Supple, trachea is midline, no adenopathy, no JVD, no carotid bruit, no c- spine tenderness, neck with full ROM. CHEST: Symmetric, no tenderness at palpation LUNGS: Decreased breath sounds bilaterally. CVS: Irregular tachycardia, S1 and S2 present, no murmurs or gallops appreciated. ABDOMEN: Soft, non-tender. No signs of distention. No rebound no guarding, and no masses palpated. Bowel sounds are normal. EXTREMITIES: The left foot is swollen, tender, and red. NEURO: Alert and oriented x 3. No acute neurological deficits. Speech is normal and follows commands. SKIN: Dry and warm Triage Information Reviewed: Yes Vital Signs On Initial Exam: Initial Vitals Temp Pulse Resp BP Pulse Ox 99.5 F 111 28 136/62 99 06/20/17 05:41 06/20/17 05:41 06/20/17 05:41 06/20/17 05:41 06/20/17 05:41 Vital Signs Reviewed: Yes Diagnostics - Vital Signs Vital Signs Temp Pulse Resp BP Pulse Ox 06/20/17 05:41 99.5 F 111 28 136/62 99 - Laboratory Result Diagrams: 06/20/17 06:06 Lab Statement: Any lab studies that have been ordered have been reviewed, and results considered in the medical decision making process. - Radiology CXR Xray Interpretation: Positive (See Comments) - Cardiomegaly and interstitial infiltrate consistent with CHF Radiology Interpretation Completed By: ED Physician Foot XR Xray Interpretation: Positive (See Comments) - Marked osteopenia with bone destruction. Radiology Interpretation Completed By: ED Physician - EKG 05:59 Cardiac Rate: Tachycardia EKG Rhythm: Atrial Fibrillation - at 147 BPM EKG Interpretation: Normal axis. Lower Extremity Course/Dx - Course Assessment/Plan: The patient is a 51 year old male brought in by ambulance with a swollen erythematous left foot for the last week. He has pain to the left foot. He weighs over 400 pounds and is an insulin-dependent diabetic. In The ED course, the patient was given acetaminophen, morphine, IV fluids, Zofran, vancomycin, and Zosyn. Bloodwork was obtained. EKG shows A-Fib at 147 BPM. Foot XR shows market osteopenia with bone destruction. EKG shows cardiomegaly and interstitial infiltrate consistent with CHF. Due to the CXR, we will not follow the sepsis protocol and the patient will only be given 1 L of fluid. THe patient is admitted by Dr. Richards. - Diagnoses Provider Diagnoses: Cellulitis of left foot, Charcot's joint - Physician Notifications Discussed Care Of Patient With: Rik Richards Time Discussed With Above Provider: 06:58 Instructed by Provider To: Admit As Inpatient Discharge - Discharge Plan Condition: Fair Disposition: ADMITTED TO [facility] Referrals: Lencho Plasencia MD [Primary Care Provider] - The documentation as recorded by the Jose gillespie Thomas accurately reflects the service I personally performed and the decisions made by me, Wang Berry MD.
--- OUTSIDE RECORDS SUMMARY | 2017-06-20 07:08 | XMS REPORT ---
:1965 External Reference #:[id number] Author Organization [facility] Address [address] [address] Phone [phone] Care Team Providers Name Role Phone Lencho Plasencia MD Primary Care Physician Unavailable Payers Type Date Identification Numbers Payment Provider Subscriber Commercial Effective: Policy Number: BS Steven Anderson 2014 [id number] PayID: [id number] [address] [address] ROSALINDA Mcrae [address] Health Maintenance Effective: Policy Number: [facility] Medicare Bautista silkfred Organization (HMO) 05/07/2011 [id number] Solutions Justin Group Number: [id number] [address] [address] Group Name: [place] [address] PayID: [id number] Problems Date Description Provider Status Onset: 02/27/2017 Ulcer of foot Jose Mckee MD Active Onset: 04/19/2017 Abscess of bursa, left ankle and foot Jose Mckee MD Active Onset: 04/19/2017 Abscess of tendon sheath, left ankle and Jose Mckee MD Active foot Onset: 04/19/2017 Charcot's joint of foot Jose Mckee MD Active Onset: 04/19/2017 Staphylococcal arthritis Jose Mckee MD Active Social History Type Date Description Comments Smoking Patient has never smoked Allergies, Adverse Reactions, Alerts Date Description Reaction Status Severity Comments 05/14/2017 Tigecycline active Medications Medication Date Status Form Strength Qnty SIG Indications Ordering Provider Albuterol 00/00/ Active Nebulizer (2.5mg/3M 1 vial via Unknown Sulfate 0000 L) 0.083% nebulizer every 4 hrs as needed for shortness of breath (per 03/05[place]17 [facility] [place] Proair HFA 00/ Active Aerosol 108(90Bas 2 puffs by Unknown 0000 e) mouth mcg/Act every 4 hours as needed (per 03/05/17 [facility] [place]) Allopurinol / Active Tablets 300mg 2 by mouth Unknown 0000 every day (per 03/05/17 [facility] [place]) Atorvastatin / Active Tablets 40mg 1 by mouth Unknown Calcium 0000 every day (per 03/05/17 [facility] [place]) Symbicort 00/ Active Aerosol 160-4.5mc 2 puff Unknown 0000 g/Act twice a day (per 03/05/17 [facility] [place]) Diltiazem HCL ER / Active Caps ER 360mg 1 by mouth Unknown Beads 0000 24HR every day (per 03/05/17 [facility] [place]) Fluticasone / Active Suspension 50mcg/Act 2 sprays Unknown Propionate 0000 each nostril daily as needed (per 03/05/17 [facility] [place]) Humulin 70/30 / Active Suspension (70-30)10 100 units Unknown 0000 0Unit/ML sub cutaneous twice daily (per 03/05/17 [facility] [place]) Humalog / Active Solution 100Unit/M sliding Unknown 0000 L scale at mealtime (per 03/05/17 [facility] [place]) Ketoconazole / Active Cream 2% apply Unknown 0000 twice a day (per 03/05/17 [facility] [place]) Levothyroxine / Active Tablets 200mcg take 1 Unknown Sodium 0000 tablet every morning (per 03/05/17 [facility] [place]) Metolazone 00/ Active Tablets 5mg 1 by mouth Unknown 0000 once daily (per 03/05/17 [facility] [place]) Metoprolol / Active Tablets 25mg 1 by mouth Unknown Tartrate 0000 twice a day (per 03/05/17 [facility] [place]) Spironolactone 00// Active Tablets 50mg 1 by mouth Unknown 0000 every day (per 03/05/17 [facility] [place]) Torsemide 00/ Active Tablets 20mg 2 by mouth Unknown 0000 twice a day (per 03/05/17 [facility] [place]) Coumadin / Active Tablets 5mg 3 by mouth Unknown 0000 every day (per 03/05/17 [facility] [place]) Oxycodone HCL / Active Tablets 10mg 1 tab 4h Unknown 0000 as needed for pain (per 03/05/17 [facility] [place]) Doxycycline 03/14/ Hx Capsules 100mg 28cap one Mann Hyclate 2017 - s capsule D. 05/31/ twice [facility], 2017 daily for M.D. 14 days Vancomycin HCL / Hx Solution 750mg IV q 12 Unknown 0000 - Rec hrs through 2016 Lifetime Care (end date 03/15/17) (per 03/05/17 [facility] [place]) Vital Signs Date Vital Result Comment 06/01/2017 Height 72 inches 6'0" Weight 440.00 lb per pt Heart Rate 86 /min BP Systolic Sitting 142 mmHg BP Diastolic Sitting 62 mmHg Respiratory Rate 18 /min Body Temperature 98.3 F O2 % BldC Oximetry 97 % on 5L O2 BMI (Body Mass Index) 59.7 kg/m2 05/14/2017 Height 72 inches 6'0" Weight 495.00 lb Heart Rate 72 /min Respiratory Rate 22 /min Body Temperature 98.5 F Pain Level 0 BMI (Body Mass Index) 67.1 kg/m2 03/30/2017 Height 72 inches 6'0" Weight 459.00 [...] PLEASE FAX RESULTS TO DR TREADWELL'S OFFICE [phone] 3 Acute inflammation: >10.00 4 [facility] Severe Sepsis and Septic Shock Management Bundle [...] (or dialysis) 6 Result TnIDx:0.05 Called to [id number] at: 17:31:27 by:[id number] Read back by: [id number] Acute inflammation: >10.00 Procedures Date CPT Code Description Status 04/19/2017 18847 Arthrotomy Ankle Explore/Drain/Remove Foreign Body Completed 04/19/2017 21007 Arthrotomy Ankle Explore/Drain/Remove Foreign Body Completed 04/19/2017 46621 I&D Leg Or Ankle;Deep Abscess Or Hematoma Completed 04/19/2017 64711 I&D Leg Or Ankle;Deep Abscess Or Hematoma Completed 04/17/2017 20260 Inject/Drain Joint/Bursa Intermediate Completed 03/01/2017 30945 Amputation Toe MP JT Completed 03/01/2017 36262 Amputation Toe MP JT Completed 07/28/2016 42204 Removal Devitalization Tissue Wound Less Than Equal 20 Completed Square CM 06/12/2016 82817 EKG, Interpretation Only Completed 06/08/2016 88249 ECHO Transthorasic Realtime 2D W Doppler & Color Completed [facility] 10/25/2015 00784 ECHO Transthorasic Realtime 2D W Doppler & Color Completed [facility] 06/11/2014 88142 EEG Recording Awake & Drowsy Completed 06/11/2014 49796 EKG, Interpretation Only Completed 06/10/2014 75689 ECHO Transthorasic Realtime 2D W Doppler & Color Completed [facility] Encounters Type Date Location Provider CPT E/M Dx Office Visit 05/03/2017 7:57a [facility] ,[place] [address] L03.119 Hospitalists L02.619 N18.3 E66.2 Office Visit 04/27/2017 2:55p [facility] Amanda Lorenzo 51274 L02.612 Infectious Diseases Kenia Treadwell B95.62 E10.22 N18.5 Office Visit 04/27/2017 9:09a [facility] osmar Barron 51791 L03.116 Hospitalists Kenia N18.3 E11.22 E66.01 Office Visit 04/26/2017 9:09a [facility] Alysia Avinar, 21238 L03.116 Hospitalists Kenia N18.3 E11.22 E66.01 Office Visit 04/25/2017 9:08a [facility] Alysia Avinar, 50356 L03.116 Hospitalists Kenia N18.3 E11.22 E66.01 Office Visit 04/24/2017 9:07a [facility] 44502 L03.116 Assoc,pc Hospitalists VICKIE Okeefe I48.91 E66.01 E11.22 Office Visit 04/23/2017 9:06a [facility] 34786 L03.116 Assoc,pc Hospitalists VICKIE Okeefe I48.91 E11.22 E66.01 Office Visit 04/23/2017 11:23a [facility] Cheri Lorenzo 83265 L02.612 Infectious Demond Treadwell M.D. B95.62 E10.22 N18.5 Office Visit 04/22/2017 9:05a [facility] 73040 L03.116 Assoc,pc Hospitalists VICKIE Okeefe E66.01 E11.22 I48.91 Office Visit 04/21/2017 9:05a [facility] 49063 L03.116 Assoc,pc Hospitalists VICKIE Okeefe E11.22 I48.91 E66.01 Office Visit 04/20/2017 9:04a [facility] 71695 L03.116 Assoc,pc Hospitalists VICKIE Okeefe E11.22 E66.01 I48.91 Office Visit 04/19/2017 9:03a [facility] 47525 L03.116 Assoc,pc Hospitalists VICKIE Okeefe E11.22 N18.3 Z79.4 Office Visit 04/19/2017 2:07p [facility] Amanda Lorenzo 45887 L02.612 Infectious Demond Treadwell M.D. B95.62 Office Visit 04/18/2017 9[facility]02[facility] Liseth Nation, 47429 L03.116 Hospitalists N.P. E11.22 N18.3 Z79.4 Office Visit 04/18/2017 9:53a [facility] 78134 L08.9 C.M.A. Office Visit 04/17/2017 9:02a [facility] Assoc, Liseth Nation, 39257 L03.116 Hospitalists N.P. N18.3 E11.22 Z79.4 Office Visit 04/17/2017 8:50a [facility] 84392 L08.9 C.M.A. Office Visit 04/17/2017 [facility] 89225 M79.672 Infectious Diseases Kenia Treadwell M79.89 E11.40 E11.21 R78.81 Z86.14 Office Visit 04/16/2017 9:01a [facility] Liseth Soto Rios, 46284 L03.116 Hospitalists N.P. N18.3 E11.22 Z79.4 Office Visit 04/15/2017 9:00a [facility] Amanda Crisostomo, 46245 L03.116 Assoc, Hospitaldebby Aquino N18.3 E11.22 Z79.4 Office Visit 03/05/2017 [facility] 92776 E11.69 Assoc,pc PA Hospitalists I48.91 L08.9 J96.11 Office Visit 03/04/2017 7:28a [facility] Littlella-Dulfer, 82468 E11.69 Assoc,pc PA Hospitalists I48.91 L08.9 J96.11 Office Visit 03/03/2017 7:26[facility] Littlella-Dulfer, 18553 E11.69 Assoc,pc PA Hospitalists I48.91 L08.9 J96.11 Office Visit 03/02/2017 7:23a [facility] Schultza-Deniz, 61394 E11.69 Assoc,pc PA Hospitalists I48.91 L08.9 J96.11 Office Visit 03/01/2017 3:37p [facility] Slime, 33439 E11.69 Assoc,pc PA Hospitalists L08.9 I48.91 J96.11 Office Visit 02/28/2017 3:40p [facility] [place] [address] E11.40 C.M.A. E11.621 Office Visit 02/28/2017 3:36p [facility] Assoc, Liseth Nation, 20036 E11.69 Hospitalists N.P. L08.9 I48.91 J96.11 Office Visit 02/27/2017 3:35p [facility], Liseth Nation, 58000 E11.69 Hospitalists N.P. L08.9 I48.91 J96.11 Office Visit 02/26/2017 11:45a [facility] [place] [address] E11.69 C.M.A. L08.9 Office Visit 02/26/2017 3:35p [facility] Liseth Nation, 15360 E11.69 Hospitalists N.P. L08.9 I48.91 J96.11 Office Visit 02/26/2017 8:16a [facility] Mann Treadwell, 21857 E11.69 Infectious Diseases Kenia M60.076 M86.671 L03.031 L97.519 E11.51 E11.621 E11.40 Office Visit 02/25/2017 3:34p [facility] Linda Patterson, [employer] SAL[employer]PRES[employer]IVES 61039 E11.69 Assoc, Hospitalists L08.9 I48.91 J96.11 Office Visit 02/24/2017 3:33p [facility] [place] [address] E11.69 Hospitalists L08.9 I48.91 J96.11 Office Visit 02/24/2017 11:12a [facility] Laina Anne M.D. 36054 E11.40 C.M.A. L97.514 Office Visit 02/23/2017 3:32p [facility], [place] [address] E11.69 Hospitalists L08.9 I48.91 E66.01 Office Visit 02/23/2017 9:55a [facility] Anne M.D. 95360 E11.40 C.M.A. B35.1 M86.172 Office Visit 08/11/2016 10:00a [facility] [place] [address] T24.231D [facility] E66.01 E11.40 Office Visit 07/25/2016 3:05p [facility], 40265 L03.90 Hospitalists M.D. I48.91 E11.42 G47.33 Office Visit 07/25/2016 7:00a [facility] 21720 L03.115 Of [facility] L97.219 L03.115 E11.22 L97.219 Office Visit 07/24/2016 3:04p [facility], 27285 E11.42 Hospitalists M.D. L03.90 I48.91 G47.33 Office Visit 07/23/2016 3:03p [facility], Dewey Urban, 94684 E11.42 Hospitalists M.D. L03.90 I48.91 G47.33 Office Visit 07/22/2016 3:02p [facility], Dewey Urban, 70412 L03.90 Hospitalists M.D. I48.91 E11.42 G47.33 Office Visit 07/21/2016 3:01p [facility], 30803 L03.90 Hospitalists M.D. I48.91 E11.42 G47.33 Office Visit 06/15/2016 2:58p [facility], 95448 I50.9 Hospitalists M.D. E11.9 E66.01 Z79.4 Office Visit 06/14/2016 2:58p [facility], 11986 I50.9 Hospitalists M.D. E11.9 E66.01 Z79.4 Office Visit 06/13/2016 2:57p [facility], Amanda Crisostomo, 66974 I50.9 Hospitalists M.D. E11.9 E66.01 Z79.4 Office Visit 06/12/2016 2:57p [facility] Amanda Porterhn, 65186 I50.9 Hospitalists M.D. E11.9 E66.01 Office Visit 06/11/2016 2:56p [facility] Amanda Porterhn, 60975 I50.9 Hospitalists M.D. E11.9 E66.01 Z79.4 Office Visit 06/10/2016 2:56p [facility], Amanda Porterhn, 79461 I50.9 Hospitalists M.D. E11.9 E66.01 Z79.4 Office Visit 06/09/2016 2:55p [facility] Amanda Porterhn, 64575 I50.9 Hospitalists M.D. E66.01 E11.9 Z79.4 Office Visit 06/08/2016 2:54p [facility] Elijah Agrawal M.D. 46004 I50.9 Hospitalists E66.01 E11.9 Z79.4 Office Visit 10/31/2015 11:22a [facility] Dewey Urban, 26657 I95.9 Hospitalists M.D. E11.22 I48.0 N18.3 Office Visit 10/30/2015 11:21a [facility] Dewey Urban, 28589 I95.9 Hospitalists M.D. E11.22 I48.0 N18.3 Office Visit 10/29/2015 11:21a [facility] Dewey Urban, 96426 I95.9 Hospitalists M.D. E11.22 I48.0 N18.3 Office Visit 10/28/2015 11:20a [facility] Dewey Urban, 32736 I95.9 Hospitalists M.D. E11.22 I48.0 N18.3 Office Visit 10/26/2015 9:21a [facility], [place] [address] I50.31 Hospitalists J18.9 R65.10 I48.91 Office Visit 10/25/2015 9:20a [facility], [place] [address] I50.31 Hospitalists J18.9 R65.10 I48.91 Office Visit 10/25/2015 3:51p [facility] KayEdwin Snider, 35202 I48.2 Human Resources Compliance Manager M.DEdwin I50.30 Office Visit 10/24/2015 9:20a [facility], [place] [address] I50.31 Hospitalists R65.10 J18.9 I48.91 Office Visit 10/23/2015 9:19a [facility], [place] [address] I50.31 Hospitalists J18.9 R65.10 I48.91 Office Visit 10/22/2015 9:18a [facility] [place] [address] I50.31 Assoc, Hospitalists Kenia J18.9 R65.10 I48.91 Office Visit 06/13/2014 10:47a [facility], Amanda Crisostomo, 38408 333.2 Hospitalists M.Maura 782.3 496 278.01 Office Visit 06/12/2014 10:47a [facility], Amanda Crisostomo, 01040 333.2 Hospitalists M.DEdwin 496 782.3 278.01 Office Visit 06/11/2014 10:26a [facility] [place] [address] 780.2 Services Of Human Resources Compliance Manager 333.2 Office Visit 06/11/2014 10:46a [facility], Rik Richards, 91211 782.3 Hospitalists M.Maura 994.8 496 250.00 Office Visit 06/10/2014 10:23a [facility] Edelmira Bell, 92929 781.0 Services Of Human Resources Compliance Manager M.Maura 333.2 780.2 Office Visit 06/10/2014 10:45a [facility], Rik Richards, 58108 782.3 Hospitalists M.Maura 496 994.8 250.00 Plan of Care Future Appointment(s):06/15/2017 1:45 pm - Jose Mckee MD at [facility]..06/01/2017 - Mann Treadwell M.D.N18.3 Chronic kidney disease, stage 3 (moderate)M65.072 Abscess of tendon sheath, left ankle and footB95.62 Methicillin resis staph infct causing diseases classd elswhr
[2017-06-20] MEDS ORDERED: Acetaminophen TAB* 325 MG PO PRN (07:37)
[2017-06-20] MEDS ORDERED: Ondansetron INJ* 2 MG/ML VIAL IV PRN (07:37)
[2017-06-20] MEDS ORDERED: NS 0.9% 1000 ML* 1,000 ML IV SCH (07:45)
--- NOTE | 2017-06-20 08:02 | RAD ---
HISTORY: Fever COMPARISONS: April 25, 2017 VIEWS: 2: frontal portable view of the chest at 6:13 AM FINDINGS: LINES AND TUBES: None. CARDIOMEDIASTINAL SILHOUETTE: The cardiac silhouette is enlarged. The cardiomediastinal silhouette is otherwise normal for portable technique. PLEURA: The costophrenic angles are sharp. No pleural abnormalities are noted. LUNG PARENCHYMA: There is a diffuse reticular pattern with indistinct pulmonary vessels. ABDOMEN: The upper abdomen is clear. There is no subphrenic gas. BONES AND SOFT TISSUES: No bone or soft tissue abnormalities are noted. IMPRESSION: CARDIOMEGALY WITH PULMONARY INTERSTITIAL EDEMA
--- NOTE | 2017-06-20 08:04 | RAD ---
HISTORY: Foot infection, pain COMPARISONS: May 14, 2017 VIEWS: 3, Frontal, lateral, and oblique views of the left foot FINDINGS: BONE DENSITY: Normal. BONES: Again noted is fragmentation of the bones of the midfoot consistent with chronic fractures in the setting of neuropathic joint. There is widening of the Lisfranc interval. JOINTS: There is advanced osteoarthritis of the midfoot. ALIGNMENT: There is no dislocation. SOFT TISSUES: There is peripheral arterial calcification. OTHER FINDINGS: None. IMPRESSION: FINDINGS MOST CONSISTENT WITH A NEUROPATHIC JOINT WITH ADVANCED OSTEOARTHRITIS AND CHRONIC FRACTURES OF THE MIDFOOT. THERE IS NO APPRECIABLE EROSION OR PERIOSTEAL REACTION. PLAIN FILM FINDINGS OF OSTEOMYELITIS ARE RELATIVELY LATE FINDINGS. IF THERE IS PERSISTENT CLINICAL CONCERN FOR OSTEOMYELITIS, RECOMMEND CORRELATION WITH FOLLOWUP IMAGING, THREE-PHASE BONE SCANNING, WHITE BLOOD CELL SCAN, AND/OR MRI OF THE AFFECTED REGION.
[2017-06-20] MEDS ORDERED: Fluticasone NASAL SPRAY 50MCG* 16 gm SPRAY BTL BOTH NARES PRN (08:52)
[2017-06-20] MEDS: Spironolactone TAB* 25 MG PO SCH (09:47)
[2017-06-20] MEDS: Metoprolol Tartrate TAB* 25 MG PO SCH ×2 (09:47→19:30)
[2017-06-20] MEDS: Insulin ISOPH/REG 70/30 (*) 1 UNITS UNIT SUBCUT SCH (09:48)
[2017-06-20] MEDS: Torsemide TAB* 20 MG PO SCH ×3 (09:48→19:56)
[2017-06-20] MEDS: Allopurinol TAB* 300 MG PO SCH (09:48)
[2017-06-20] MEDS: Atorvastatin* 40 MG TAB PO SCH (09:48)
[2017-06-20] MEDS: Metolazone TAB* 5 MG PO SCH (09:48)
[2017-06-20] MEDS: Levothyroxine TAB* 100 MCG TAB PO SCH (09:48)
[2017-06-20] MEDS: Mometasone/Formoter 200/5 MDI INH SCH ×2 (10:31→20:16)
--- NOTE | 2017-06-20 11:49 | RAD ---
Indication: Infection at the LEFT mid foot and ankle. Previous debridement and amputation. Comparison: June 20, 2017 radiographs. Technique: Noncontrast MRI LEFT ankle and foot limited to T1 and inversion recovery series. iKONVERSEa 1.5 Tayler AC019R with GEM suite. Report: Fragmentation and collapse at the mid foot most consistent with Charcot arthropathy. Bone marrow edema on T2-weighted images at the calcaneus, talus, cuboid, navicula and bases of the second, third, and fourth metatarsals with corresponding loss of normal T1 marrow hyperintensity. Extensive superficial and deep soft tissue edema. Diffuse joint effusions from the subtalar joint through the tarsometatarsal joints. Loculated fluid collection within the medial soft tissues at the level of the ankle measuring up to 3 cm AP by 1.1 cm transverse by 3.5 cm cephalocaudal. Diffuse skeletal muscle edema. IMPRESSION: While the signal changes are less specific in setting of Charcot arthropathy given the magnitude and extent of signal abnormality extending from the calcaneal body and tuberosity junction through the talus, residual tarsal bones, and second through fourth metatarsal bases consider osteomyelitis and septic arthritis. Extensive superficial and deep soft tissue inflammatory change with loculated fluid collection concerning for abscess at the medial aspect of the ankle as described.
[2017-06-20] MEDS: Insulin LISPRO* 1 UNITS UNIT SUBCUT SCH ×2 (13:21→16:57)
[2017-06-20] MEDS: Albuterol 2.5 MG/3 ML NEB.SOL* (0.083%) INH PRN ×2 (13:33→20:16)
[2017-06-20] MEDS ORDERED: Vancomycin per Pharmacy* NOTE FOLLOW UP PRN (14:11)
[2017-06-20] MEDS ORDERED: Vancomycin(*) 0 MG in NS 0.9% 250 ML* 250 ML IVPB SCH (15:00)
[2017-06-20] MEDS ORDERED: Zosyn per Pharmacy* NOTE FOLLOW UP SCH (15:00)
[2017-06-20] MEDS: ZOSYN 3.375 GM Q8H per EXTENDED INFUSION IVPB SCH ×2 (15:05)
[2017-06-20] MEDS: oxyCODONE TAB* 5 MG TAB PO PRN (15:27)
[2017-06-20] MEDS ORDERED: Vancomycin(*) 1,000 MG in NS 0.9% 250 ML* 250 ML IVPB SCH (15:30)
[2017-06-20 17:19] LABS: Urine Appearance Clear; Urine Blood Negative (Negative); Urine Color Yellow; Urine Ketones Negative (Negative); Urine Protein Negative (Negative); Urine Specific Gravity 1.011 (1.010-1.030); Urine Urobilinogen Negative (Negative)
[2017-06-20] MEDS: Vancomycin(*) 1,000 MG in NS 0.9% 250 ML* 250 ML IVPB SCH (19:29)
[2017-06-20] MEDS: Rivaroxaban TAB(*) 20 MG TAB PO SCH (19:29)
--- NOTE | 2017-06-20 22:11 | HP ---
CC: Dr. Plasencia * HISTORY AND PHYSICAL: DATE OF ADMISSION: 06/20/17 PRIMARY CARE PROVIDER: Dr. Plasencia. HEALTHCARE PROXY: . CODE STATUS: Full. SOURCE OF INFORMATION: History obtained from interview with patient, review of past medical records. RELIABILITY: Fair. CHIEF COMPLAINT: Left foot pain and redness. HISTORY OF PRESENT ILLNESS: This is a 51-year-old man, last hospital stay at [facility] in April 2017, when he presented with pain in his left foot and leg, had a complicated hospital stay where he had what was thought to possibly represent an abscess versus hematoma which was drained by Dr. Bhagat and underwent irrigation and debridement, openly grew MSSA. The patient was treated with antibiotics. There was concern on that MRI of osteomyelitis; however, notable difficult interpretation given his Charcot foot. He has been doing well since that time. He knows that he is not supposed to put weight on his left foot, but still ambulates from the couch to the bathroom, no further than that. He noticed that over the last 2 to 3 days, his left foot had become increasingly painful, red and swollen again and therefore, presented to the emergency room. He additionally notes that he had a fever of 100 degrees over the last 2 to 3 days associated with chills, but no rigors. In the emergency room, he is noted with T-max 99.5 as well as leukocytosis at 16.7,000, and the hospitalist service was consulted for admission. PAST MEDICAL HISTORY: Includes: 1. Morbid obesity. 2. VENTURA, on CPAP. 3. Type 2 diabetes. 4. Chronic hypoxic respiratory failure. 5. DVT. 6. PE. 7. Hyperlipidemia. 8. CKD. 9. Hypertension. 10. Peripheral vascular disease. 11. Hypothyroidism. 12. Arthritis. 13. Gout. 14. Right second toe amputation in February 2017 secondary to osteomyelitis. MEDICATIONS: 1. Rivaroxaban 20 mg daily. 2. Albuterol 2 puffs every 4 hours as needed. 3. Symbicort 2 puffs twice daily. 4. Atorvastatin 40 mg daily. 5. Allopurinol 300 mg daily. 6. Metoprolol tartrate 25 mg twice daily. 7. Metolazone 5 mg daily. 8. Levothyroxine 200 mcg daily. 9. Insulin isophane regular 70/30, 80 units twice daily. 10. Insulin lispro 10 units with meals. 11. Fluticasone nasal spray 2 sprays both nares as needed. 12. Oxycodone 5 mg every 8 hours as needed for pain. 13. Torsemide 40 mg twice daily. 14. Spironolactone 50 mg daily. ALLERGIES: To TIGECYCLINE. FAMILY HISTORY: CAD, diabetes. SOCIAL HISTORY: Stopped smoking 15 years prior to presentation. Lives with his . 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 REVIEW OF SYSTEMS: Subjective and measured fevers at home, chills, minimal cough nonproductive. No headache, chest pain, shortness of breath, nausea, vomiting, lightheadedness, loss of consciousness, urinary symptoms. Noted skin changes as noted in the body of the history of present illness. PHYSICAL EXAMINATION GENERAL: Obese man, sitting up in bed, interactive, pleasant, no apparent distress. VITAL SIGNS: In the emergency room, 136/67, heart rate from 94 to 137, respiratory rate is 16, 99% oxygen on 5 L, T-max 99.5. HEENT: Oropharynx clear. He has moist mucous membranes. Sclerae anicteric. LUNGS: He has decreased breath sounds in his bases. No rhonchi or rales. HEART: He has an irregularly irregular heart beat without murmurs, rubs or gallops. ABDOMEN: Obese, soft, nontender, nondistended. EXTREMITIES: Warm and well perfused. He has a closed ulcer on the base of his right heel and left ankle is erythematous with greatest area of focal erythema in its medial aspect with underlying swelling. Intact sensation. Difficult to appreciate pulses, but warm. NEUROLOGIC: He alert and oriented x3. His cranial nerves II through XII are intact. No apparent anxiety, agitation or depression. LABORATORY DATA/DIAGNOSTIC STUDIES: Labs reviewed. White blood cell count 16.7, 86.7% neutrophils, hemoglobin is 8.6, platelets 556,000. INR is 2.0. Sodium 127, BUN 56, creatinine 1.32. Lactic acid 0.8. CRP 142. Data reviewed. MRI of left foot obtained since admission. While the signal changes are less specific in the setting of Charcot arthropathy, given the magnitude and extent of signal abnormality extending from the calcaneal body and tuberosity junction through the talus, residual tarsal bones and 2nd through 4th metatarsal bones, consider osteomyelitis and septic arthritis. Extensive superficial and deep soft tissue inflammatory changes with loculated flu collection concerning for abscess at the medial aspect of the ankle as described. ASSESSMENT AND PLAN: This is a 51-year-old man with: 1. Left Charcot foot. Previous history of suspected infection, although not clear, now presenting with recurrent pain, inflammation. MRI concerning for underlying bone infection as well as osteomyelitis with concern for underlying abscess. Constellation of MRI findings more concerning for osteomyelitis compared with April. I appreciate orthopedic consultation. The patient will go to the operating room for potential I and D as well as bone biopsy. The patient had MSSA from the last hospital stay; however, will broaden to vancomycin as well as Zosyn until results of I and D and/or biopsy return. I have consulted Infectious Disease for assistance in this case. 2. Atrial fibrillation with rapid rate on presentation: Fluids. Place on telemetry, currently rate controlled now. The patient has expressed dissatisfaction with telemetry monitoring. We will make attempt to control rate and remove telemetry at patient's request. Continue Xarelto. We will hold at Ortho's recommendation. 3. Chronic kidney disease: Stable. Continue those meds accordingly. 4. History of deep vein thrombosis and pulmonary embolus: Continue Xarelto. 5. Type 2 diabetes: Continue home regimen of insulin. 6. Obstructive sleep apnea: We will order CPAP, the patient may decline if he wishes. 7. Hypertension: Continue home medications including metoprolol as well as diuretics, metolazone, and torsemide, Aldactone. 8. DVT prophylaxis: Xarelto. [id number]/[facility] #: [id number] MTDD
--- NOTE | 2017-06-20 22:52 | CONS ---
CONSULTATION REPORT: DATE OF CONSULTATION: 06/20/17 ATTENDING PROVIDER: Dr Toni MD HISTORY OF PRESENT ILLNESS: On the morning of 06/20/17, the patient was brought to [facility] [place] [facility] Room with a painful swollen left foot for the past roughly 3 days. Left foot and ankle are painful. He denies any trauma or open lesions to the site. He states that he simply noticed it getting swollen and red. His [facility] nurse did see him on Sunday and did not mention any concern of infection. The patient is an insulin-dependent diabetic. He does have a history of washout of this foot as well as Charcot arthropathy. He has had amputation of toes on the right foot in the past as well. The patient has tolerated anesthesia well int he past. He has no history of heart attack or stroke. He does have a history of blood clot more than 5 years ago. He has been on warfarin until about 3 weeks ago when he was switched to Xarelto due to inability to get INR draws. His primary care physician is Dr. Nielsen. PAST MEDICAL HISTORY: Insulin-dependent diabetes, thyroid disease, anemia, atrial fibrillation, congestive heart failure, DVT, peripheral vascular disease , asthma, COPD with 5 L of oxygen at home, history of pulmonary embolism, sleep apnea, chronic renal failure. PAST SURGICAL HISTORY: Left foot I and D in 2017, right second toe amputation in 2017. SOCIAL HISTORY: Lives with family. Former smoker. REVIEW OF SYSTEMS: General: Low-grade fever, chills. Head: No headache. Eyes: No changes in vision. Heart: No irregular beats. No chest pain. No history of VA. Lungs: No shortness of breath. Asthma and COPD at baseline. GI: Denies any nausea, vomiting, diarrhea. : Denies any dysuria. Musculoskeletal: Confirms left lower extremity pain only. No other muscular pains. Neuro: Baseline decreased sensation in bilateral lower extremities. Endocrine: History of diabetes and hypothyroidism. Hematology: History of blood clots. Skin: Redness of left lower extremity. PHYSICAL EXAMINATION: General: The patient is lying in bed comfortably, in no acute distress. Vitals: Temp 99.2, pulse 78, respiratory rate 18, oxygen saturation 99, blood pressure 122/68. Heart: S1, S2. Lungs: Breath sounds clear to auscultation bilaterally. Abdomen: Soft. No masses. Extremities: Left foot is edematous with erythema over the medial malleolus. The patient confirms tenderness to light palpation spanning the entire lateral aspect of the foot. Vascular: The patient's calves are with chronic hyperpigmentation and induration. No palpable cords. Musculoskeletal: Dorsiflexion and plantar flexion intact of the lower extremity. Neuro: The patient lacks sensation to light touch of the left foot. Left lower extremity MRI showed Charcot arthropathy, extensive superficial and deep soft tissue inflammatory change with loculated fluid collection concerning for abscess at the medial aspect of the ankle. Cannot rule out osteomyelitis versus septic arthritis. PLAN: Continue antibiotic therapy as recommended by medical team. The patient will be taken to the OR by Dr. Muñoz 06/21. He is to be NPO after midnight RAI MULLEN [id number]/CPS #: [id number] MTDD
[2017-06-21] MEDS: ZOSYN 3.375 GM Q8H per EXTENDED INFUSION IVPB SCH ×8 (01:30→22:27)
--- NOTE | 2017-06-21 01:54 | PN ---
Progress Note - Progress Note Date of Service: 06/21/17 Note: Patient's insulin was delayed from being given from 2100 - to 0200.
[2017-06-21] MEDS: Insulin ISOPH/REG 70/30 (*) 1 UNITS UNIT SUBCUT SCH ×4 (01:56→20:28)
[2017-06-21] MEDS: Levothyroxine TAB* 100 MCG TAB PO SCH (05:28)
[2017-06-21] MEDS: Vancomycin(*) 1,000 MG in NS 0.9% 250 ML* 250 ML IVPB SCH ×2 (05:28→19:53)
[2017-06-21] MEDS: Mometasone/Formoter 200/5 MDI INH SCH ×2 (06:08→20:11)
[2017-06-21] MEDS: Albuterol 2.5 MG/3 ML NEB.SOL* (0.083%) INH PRN ×2 (06:08→23:35)
[2017-06-21 06:16] LABS: Hematocrit 27 % (42-52); Hemoglobin 8.3 g/dl (14.0-18.0); Mean Corpuscular HGB Conc 31 g/dl (31-36); Mean Corpuscular Hemoglobin 26 pg (27-31); Mean Corpuscular Volume 84 fL (80-94); Mean Platelet Volume 7 um3 (7.4-10.4); Platelet Count 593 10^3/ul (150-450); Red Blood Count 3.21 10^6/ul (4.0-5.4); Red Cell Distribution Width 18 % (10.5-15); White Blood Count 14.4 10^3/ul (3.5-10.8)
[2017-06-21 06:21] LABS: EGFR Non-African American 43.4 (>60)
[2017-06-21 06:44] LABS: ABS Basophils 0.1 10^3/ul (0-0.2); ABS Eosinophils 0.2 10^3/ul (0-0.6); ABS Lymphocytes 0.8 10^3/ul (1.0-4.8); ABS Monocytes 1.1 10^3/ul (0-0.8); ABS Neutrophils 12.1 10^3/ul (1.5-7.7); ABS Nucleated RBC 0 10^3/ul; Eosinophil % 1.5 % (0-6); Lymphocyte % 5.4 % (25-47); Nucleated Red Blood Cells % 0.2
[2017-06-21 07:33] LABS: Vancomycin Trough 13.8 mcg/mL
[2017-06-21] MEDS: Metoprolol Tartrate TAB* 25 MG PO SCH ×2 (08:15→20:25)
[2017-06-21] MEDS: Spironolactone TAB* 25 MG PO SCH (08:15)
[2017-06-21] MEDS: Allopurinol TAB* 300 MG PO SCH (08:15)
[2017-06-21] MEDS: Metolazone TAB* 5 MG PO SCH (08:15)
[2017-06-21] MEDS: Atorvastatin* 40 MG TAB PO SCH (08:15)
[2017-06-21] MEDS: Insulin LISPRO* 1 UNITS UNIT SUBCUT SCH ×3 (08:16→19:23)
[2017-06-21] MEDS: oxyCODONE TAB* 5 MG TAB PO PRN ×2 (09:52→18:38)
[2017-06-21] MEDS: Torsemide TAB* 20 MG PO SCH (09:53)
[2017-06-21] MEDS: Rivaroxaban TAB(*) 20 MG TAB PO SCH (09:53)
[2017-06-21] MEDS ORDERED: Rivaroxaban TAB(*) 20 MG TAB PO SCH (11:03)
--- NOTE | 2017-06-21 11:06 | PN ---
Progress Note - Progress Note Date of Service: 06/21/17 SOAP: Subjective: [] Objective: [] Assessment: [] Plan: []Stopped Xarelto, will need to be restarted after surgery today. NPO today OR with Dr Mckeon today
[2017-06-21] MEDS ORDERED: Vancomycin Trough Check NOTE FOLLOW UP ONE (15:30)
--- NOTE | 2017-06-21 16:35 | PN ---
Subjective Date of Service: 06/21/17 Interval History: Episode of hypoglycemia this AM, decreased level of responsiveness, FSG low improved with carbs Feels foot is more swollen Wants tele off Objective Active Medications: Acetaminophen (Tylenol Tab*) 650 mg PO Q4H PRN PRN Reason: FEVER/PAIN Albuterol (Ventolin 2.5 Mg/3 Ml Neb.Christy*) 2.5 mg INH Q4H PRN PRN Reason: SHORTNESS OF BREATH Last Admin: 06/21/17 06:08 Dose: 2.5 mg Albuterol (Ventolin Hfa Inhaler*) 2 puff INH Q4H PRN PRN Reason: SOB/WHEEZING Allopurinol (Zyloprim Tab*) 300 mg PO DAILY [facility] Last Admin: 06/21/17 08:15 Dose: 300 mg Atorvastatin Calcium (Lipitor*) 40 mg PO DAILY [facility] Last Admin: 06/21/17 08:15 Dose: 40 mg Fluticasone Propionate (Flonase Nasal [place] 50mcg*) 2 spray BOTH NARES DAILY PRN PRN Reason: Allergy Symptoms Piperacillin Sod/Tazobactam (Sod 3.375 gm/ Sodium Chloride) 100 mls @ 25 mls/ hr IVPB Q8H [facility] Last Admin: 06/21/17 15:25 Dose: 25 mls/hr Vancomycin HCl 1,000 mg/ (Sodium Chloride) 250 mls @ 166.667 mls/hr IVPB Q12H [facility] Last Admin: 06/21/17 05:28 Dose: 166.667 mls/hr Insulin Human Isoph/Insulin Regular (Humulin 70/30 (*)) 80 units SUBCUT BID [facility] Last Admin: 06/21/17 09:53 Dose: Not Given Insulin Human Lispro (Humalog*) 10 units SUBCUT AC [facility] Last Admin: 06/21/17 12:34 Dose: Not Given Levothyroxine Sodium (Synthroid Tab*) 200 mcg PO 0600 [facility] Last Admin: 06/21/17 05:28 Dose: 200 mcg Metolazone (Zaroxolyn Tab*) 5 mg PO DAILY [facility] Last Admin: 06/21/17 08:15 Dose: 5 mg Metoprolol Tartrate (Lopressor Tab*) 25 mg PO BID [facility] Last Admin: 06/21/17 08:15 Dose: 25 mg Mometasone Furoate/Formoterol Fumar (Dulera 200/5 Mdi*) 2 puff INH BID [facility] PRN Reason: Protocol Last Admin: 06/21/17 06:08 Dose: 2 puff Ondansetron HCl (Zofran Inj*) 4 mg IV Q4H PRN PRN Reason: NAUSEA/VOMITING Oxycodone HCl (Roxycodone Tab*) 5 mg PO Q8H PRN PRN Reason: PAIN Last Admin: 06/21/17 09:52 Dose: 5 mg Pharmacy Consult (Zosyn Per Pharmacy*) 1 note FOLLOW UP .ZOSYN PER PHARMACY [facility] Pharmacy Consult (Vancomycin Per Pharmacy*) 1 note FOLLOW UP . PRN PRN Reason: PER PROTOCOL Pharmacy Profile Note (Vancomycin Trough Check) 1 note FOLLOW UP 629 ONE Stop: 06/22/17 06:31 Spironolactone (Aldactone Tab*) 50 mg PO DAILY [facility] Last Admin: 06/21/17 08:15 Dose: 50 mg Torsemide (Demadex*) 40 mg PO DAILY [facility] Last Admin: 06/21/17 09:53 Dose: Not Given Oxygen Devices in Use Now: Nasal Cannula Appearance: obese, NAD Eyes: No Scleral Icterus, PERRLA Ears/Nose/Mouth/Throat: Clear Oropharnyx, Mucous Membranes Moist Neck: NL Appearance and Movements; NL JVP, Trachea Midline Respiratory: Symmetrical Chest Expansion and Respiratory Effort, Clear to Auscultation Cardiovascular: RRR, - - NSR Abdominal: NL Sounds; No Tenderness; No Distention, No Hepatosplenomegaly Extremities: - - dense pitting edema Skin: - - left medial foot erythematous and swollen, NTTP Neurological: Alert and Oriented x 3 Result Diagrams: 06/21/17 05:51 06/21/17 05:51 Assess/Plan/Problems-Billing Assessment: 51 yo p/w swollen foot with concern for abscess and underlying osteomyelitis - Patient Problems (1) Abscess Comment: I&D today in OR 06/21 (2) Osteomyelitis Comment: c/w vancomycin/zosyn pending bone biopsy (3) Pulmonary embolism Comment: xarelto (4) VENTURA (obstructive sleep apnea) Comment: CPAP (5) Insulin dependent diabetes mellitus Comment: complicated by hypoglycemia - received late dosing 2AM while NPO Will not change dosing. Do not give late (6) Atrial fibrillation Comment: metoprolol and xarelto converted to NSR tele removed at patients request (7) DVT prophylaxis Comment: darleneto
[2017-06-21] MEDS ORDERED: Buffered Lidocaine 0.9% SYRIN* 5 ML/SYR SYRINGE INTRADERM ONE (16:39)
[2017-06-21] MEDS ORDERED: Naloxone* 0.4 MG/ML 1 ML VIAL IV PRN (16:40)
[2017-06-21] MEDS ORDERED: PROCHLORPERAZINE INJ 5 MG/ML 2 ML VIAL IV PRN (16:40)
[2017-06-21] MEDS ORDERED: fentaNYL* 50 MCG/ML 2 ML VIAL (100 MCG VIAL) IV PRN (16:40)
[2017-06-21] MEDS ORDERED: Midazolam* 1 MG/ML 2 ML VIAL (2 MG) ONE (16:43)
[2017-06-21] MEDS ORDERED: fentaNYL* 50 MCG/ML 2 ML VIAL (100 MCG VIAL) ONE (17:40)
[2017-06-21] MEDS ORDERED: KETAMINE HCL* 50 MG/ML 10 ML VIAL ONE (17:51)
[2017-06-21] MEDS ORDERED: Famotidine IV* 10 MG/ML 2 ML (20 mg) ONE (17:58)
[2017-06-21] MEDS ORDERED: oxyCODONE TAB* 5 MG TAB ONE (18:37)
[2017-06-22] MEDS: oxyCODONE TAB* 5 MG TAB PO PRN ×2 (02:11→21:28)
[2017-06-22] MEDS: Albuterol 2.5 MG/3 ML NEB.SOL* (0.083%) INH PRN ×3 (05:27→20:58)
[2017-06-22] MEDS: ZOSYN 3.375 GM Q8H per EXTENDED INFUSION IVPB SCH ×2 (06:20)
[2017-06-22] MEDS: Levothyroxine TAB* 100 MCG TAB PO SCH (06:20)
[2017-06-22] MEDS ORDERED: Vancomycin Trough Check NOTE FOLLOW UP ONE (06:30)
[2017-06-22 06:32] LABS: EGFR Non-African American 44.7 (>60)
[2017-06-22] MEDS: Vancomycin(*) 1,000 MG in NS 0.9% 250 ML* 250 ML IVPB SCH (06:36)
[2017-06-22] MEDS: Mometasone/Formoter 200/5 MDI INH SCH ×2 (07:56→20:59)
[2017-06-22] MEDS ORDERED: Polyethylene Glycol 3350* 17 GM PACKET PO PRN (08:22)
[2017-06-22] MEDS: NS 0.9% 1000 ML* 1,000 ML IV SCH (08:24)
[2017-06-22] MEDS: Insulin ISOPH/REG 70/30 (*) 1 UNITS UNIT SUBCUT SCH ×2 (08:46→21:21)
[2017-06-22] MEDS: Insulin LISPRO* 1 UNITS UNIT SUBCUT SCH ×3 (08:47→18:14)
[2017-06-22] MEDS: Metolazone TAB* 5 MG PO SCH (08:51)
[2017-06-22] MEDS: Torsemide TAB* 20 MG PO SCH (08:51)
[2017-06-22] MEDS: Spironolactone TAB* 25 MG PO SCH (08:51)
[2017-06-22] MEDS: Allopurinol TAB* 300 MG PO SCH (08:51)
[2017-06-22] MEDS: Metoprolol Tartrate TAB* 25 MG PO SCH ×2 (08:51→21:21)
[2017-06-22] MEDS: Atorvastatin* 40 MG TAB PO SCH (08:51)
[2017-06-22] MEDS: Nystatin CREAM* 15 GM TUBE TOPICAL SCH ×2 (13:48→21:21)
--- NOTE | 2017-06-22 16:47 | PN ---
Subjective Date of Service: 06/22/17 Interval History: Seen with at bedside. Pain in left foot not relieved with 5mg oxycodone Otherwise no complaints Denies CP/SOB, N/V +constipation Objective Active Medications: Acetaminophen (Tylenol Tab*) 650 mg PO Q4H PRN PRN Reason: FEVER/PAIN Last Admin: 06/21/17 21:39 Dose: 650 mg Albuterol (Ventolin 2.5 Mg/3 Ml Neb.Christy*) 2.5 mg INH Q4H PRN PRN Reason: SHORTNESS OF BREATH Last Admin: 06/22/17 13:20 Dose: 2.5 mg Albuterol (Ventolin Hfa Inhaler*) 2 puff INH Q4H PRN PRN Reason: SOB/WHEEZING Allopurinol (Zyloprim Tab*) 300 mg PO DAILY [facility] Last Admin: 06/22/17 08:51 Dose: 300 mg Atorvastatin Calcium (Lipitor*) 40 mg PO DAILY [facility] Last Admin: 06/22/17 08:51 Dose: 40 mg Fluticasone Propionate (Flonase Nasal [place] 50mcg*) 2 spray BOTH NARES DAILY PRN PRN Reason: Allergy Symptoms Sodium Chloride (Ns 0.9% 1000 Ml*) 1,000 mls @ 25 mls/hr IV PER RATE [facility] Vancomycin HCl 750 mg/ Sodium (Chloride) 250 mls @ 166.667 mls/hr IVPB Q12H [facility] Insulin Human Isoph/Insulin Regular (Humulin 70/30 (*)) 80 units SUBCUT BID [facility] Last Admin: 06/22/17 08:46 Dose: 80 unit Insulin Human Lispro (Humalog*) 10 units SUBCUT AC [facility] Last Admin: 06/22/17 13:48 Dose: 10 unit Levothyroxine Sodium (Synthroid Tab*) 200 mcg PO 0600 [facility] Last Admin: 06/22/17 06:20 Dose: 200 mcg Metolazone (Zaroxolyn Tab*) 5 mg PO DAILY [facility] Last Admin: 06/22/17 08:51 Dose: 5 mg Metoprolol Tartrate (Lopressor Tab*) 25 mg PO BID [facility] Last Admin: 06/22/17 08:51 Dose: 25 mg Mometasone Furoate/Formoterol Fumar (Dulera 200/5 Mdi*) 2 puff INH BID [facility] PRN Reason: Protocol Last Admin: 06/22/17 07:56 Dose: 2 puff Nystatin (Nystatin Cream*) 1 applic TOPICAL BID [facility] Last Admin: 06/22/17 13:48 Dose: 1 applic Ondansetron HCl (Zofran Inj*) 4 mg IV Q4H PRN PRN Reason: NAUSEA/VOMITING Oxycodone HCl (Roxycodone Tab*) 5 mg PO Q8H PRN PRN Reason: PAIN Last Admin: 06/22/17 02:11 Dose: 5 mg Oxycodone HCl (Roxycodone Tab*) 10 mg PO Q4H PRN PRN Reason: PAIN - SEVERE Pharmacy Consult (Zosyn Per Pharmacy*) 1 note FOLLOW UP .ZOSYN PER PHARMACY [facility] Pharmacy Consult (Vancomycin Per Pharmacy*) 1 note FOLLOW UP . PRN PRN Reason: PER PROTOCOL Pharmacy Profile Note (Vancomycin Trough Check) 1 note FOLLOW UP ONCE ONE Stop: 06/24/17 06:01 Polyethylene Glycol/Electrolytes (Miralax*) 17 gm PO 0800,2100 PRN PRN Reason: nausea Last Admin: 06/22/17 13:48 Dose: 17 gm Spironolactone (Aldactone Tab*) 50 mg PO DAILY [facility] Last Admin: 06/22/17 08:51 Dose: 50 mg Torsemide (Demadex*) 40 mg PO DAILY [facility] Last Admin: 06/22/17 08:51 Dose: 40 mg Vital Signs - 8 hr 06/22/17 06/22/17 06/22/17 10:14 12:07 13:23 Temperature 98.3 F Pulse Rate 71 77 Respiratory 20 18 17 Rate Blood Pressure 136/65 (mmHg) O2 Sat by Pulse 95 100 99 Oximetry Oxygen Devices in Use Now: None Appearance: obese, NAD Eyes: No Scleral Icterus, PERRLA Ears/Nose/Mouth/Throat: Clear Oropharnyx, Mucous Membranes Moist Neck: NL Appearance and Movements; NL JVP, Trachea Midline Respiratory: Symmetrical Chest Expansion and Respiratory Effort, Clear to Auscultation Cardiovascular: RRR Abdominal: NL Sounds; No Tenderness; No Distention, No Hepatosplenomegaly Lymphatic: No Cervical Adenopathy Extremities: - - tense b/l LE edema Skin: - - left foot wrapped s/p OR, candidal infections under right breast and on scrotum Neurological: Alert and Oriented x 3 Result Diagrams: 06/21/17 05:51 06/22/17 06:08 Microbiology and Other Data: Microbiology 06/21/17 18:15 Anaerobic Culture - Preliminary Wound - Left Leg Skin and Soft Tissue MRSA/MSSA (PCR - Final Mrsa Positive S.aureus Positive Gram Stain - Final Wound Culture - Preliminary Staphylococcus Aureus Assess/Plan/Problems-Billing Assessment: 51 yo p/w swollen foot found with abscess and concern for underlying osteomyelitis - Patient Problems (1) Abscess Comment: I&D 06/[address] Muñoz Cleaned abscess and left wound open to drain. Did not biopsy bone with overlying abscess Plan to return to OR Sunday for washout and attempt bone biopsy at that time. Culture +MRSA stop zosyn and continue Vanco (2) Osteomyelitis Comment: c/w vancomycin pending bone biopsy Sunday (3) Pulmonary embolism Comment: xarelto (4) VENTURA (obstructive sleep apnea) Comment: CPAP (5) Insulin dependent diabetes mellitus Comment: complicated by hypoglycemia 06/21 - received late dosing 2AM while NPO Do not give late Preprandial FSG 06/22 >200 with adjustment to insulin dose (6) Atrial fibrillation Comment: metoprolol and xarelto converted to NSR 06/20 tele removed at patients request (7) DVT prophylaxis Comment: xarelto
--- NOTE | 2017-06-22 17:31 | PN ---
Progress Note - Progress Note Date of Service: 06/22/17 SOAP: Subjective: Patient seen at bedside with present. S/P left foot washout with Dr. Muñoz on 06/21. Patient states pain currently well controlled. No CP, SOB, N/T. Objective: Temp Pulse Resp BP Pulse Ox 98.0 F 75 16 154/69 98 06/22/17 15:35 06/22/17 15:35 06/22/17 15:35 06/22/17 15:35 06/22/17 15:35 Laboratory Results - last 24 hr 06/21/17 06/21/17 06/22/17 18:10 20:19 05:13 BUN Creatinine Est GFR ( Amer) Est GFR (Non-Af Amer) POC Glucose (mg/dL) 80 129 H 193 H Vancomycin Trough 06/22/17 06/22/17 06/22/17 06:08 06:08 07:42 BUN 65 H Creatinine 1.63 H Est GFR ( Amer) 57.4 Est GFR (Non-Af Amer) 44.7 POC Glucose (mg/dL) 226 H Vancomycin Trough 18.3 06/22/17 12:22 BUN Creatinine Est GFR ( Amer) Est GFR (Non-Af Amer) POC Glucose (mg/dL) 249 H Vancomycin Trough General: WN, WD, in NAD, A&Ox3 L foot: Dressing C/D/I, no erythema proximally. Sensation grossly intact at midcalf. Brisk capillary refill. Able to D/P flex at ankle. Assessment: L foot diabetic wound ulcer with osteomyelitis, s/p washout on 06/[address] Muñoz. Plan: 1. NWB LLE 2. Continue antibiotics 3. Plan to return to OR on Sunday, 06/25 for washout and bone biopsy.
--- NOTE | 2017-06-22 17:49 | OP ---
DATE OF OPERATION: 06/21/17 - ROOM #412 DATE OF : 63 SURGEON: Rik Muñoz MD ROOF TRUSS BUILDER: Kristy Deluca PA-C ANESTHESIOLOGIST: Dr. Omer ANESTHESIA: MAC PRE-OP DIAGNOSIS: Abscess, left medial hindfoot. POST-OP DIAGNOSIS: Abscess, left medial hindfoot. OPERATIVE PROCEDURE: Irrigation and debridement, left medial hindfoot abscess. DESCRIPTION OF PROCEDURE: The patient was taken to the operating room, where MAC anesthetic was used with 0.5% lidocaine around the ankle. We made a longitudinal incision 8 cm in length along the medial hindfoot. Bloody purulent material was obtained and sent for culture and sensitivity. A 3 L of pulsatile lavage was used to completely cleanse the area and then we packed it with some Betadine gauze and a compressive dressing. The plan being to bring him back for repeat debridement and put consideration of the bone biopsy at that time. [id number]/CPS #: [id number] MTDD
[2017-06-22] MEDS: Vancomycin(*) 750 MG in NS 0.9% 250 ML* 250 ML IVPB SCH (18:14)
--- NOTE | 2017-06-22 20:27 | CONS ---
CONSULTATION REPORT: DATE OF CONSULTATION: 06/22/17 REQUESTING PHYSICIAN: Dr. Richards. CONSULTING SERVICE: Infectious Disease. REASON FOR CONSULT: Left foot infection. IMPRESSION: MRSA bacteremia and likely MRSA left lateral foot abscess. He had a left foot MRSA dorsal mid foot abscess in April 2017. This is in the setting of super morbid obesity and diabetes. He has underlying chronic osteomyelitis of the left foot. RECOMMENDATIONS: He has had debridement done by Dr. Muñoz. Repeat the blood cultures. He can have a PICC line when they are negative. He will need a long course of IV antibiotics followed by the long course oral antibiotics. Stop Zosyn. HISTORY OF PRESENT ILLNESS: This is a 51-year-old male with morbid obesity, diabetes, left foot infection, admitted with left foot infection. He was ill in April with the same. Had incision and debridement, a long course of IV antibiotics, resolution of his foot symptoms. He has been off antibiotics for about 3 weeks and now developed a left lateral foot area of what his describes as squishiness with a white head. Then, that became red and angry. So, they came to the hospital. On 06/20/17, his white count was 16,000. Blood cultures were taken, 1 of 8 bottles is growing MRSA. A wound in the left foot is growing MRSA. Put on vancomycin, tolerating that well. He has had some chills and sweats at home. His appetite has held in there. PAST MEDICAL HISTORY: 1. Morbid obesity. 2. Diabetes. 3. MRSA infection of the left foot in April 2017, status post incision and debridement. 4. Obstructive sleep apnea with CPAP. 5. Chronic hypoxemic respiratory failure. 6. DVT and pulmonary embolus. 7. Hyperlipidemia. 8. Chronic kidney disease. 9. Hypertension. 10. Peripheral vascular disease. 11. Hypothyroidism. 12. Osteoarthritis. 13. Gout. 14. Right second toe amputation in February 2017. ALLERGIES: TIGECYCLINE. MEDICATIONS: 1. Tylenol. 2. Albuterol. 3. Allopurinol. 4. Lipitor. 5. Fluticasone nasal spray. 6. Insulin lispro. 7. Levothyroxine. 8. Metolazone. 9. Metoprolol. 10. Nystatin cream. 11. Zosyn 3.375 g every 8 hours. 12. Spironolactone. 13. Vancomycin 1 g every 12 hours. SOCIAL HISTORY: Lives with his . He had been at detention in [place]. FAMILY HISTORY: No recurrent infections. REVIEW OF SYSTEMS: A 14-point review of systems was negative except as noted above. PHYSICAL EXAM: Vital Signs: Temperature was 37, heart rate 80, respiratory rate 20, blood pressure 143/72, oxygen saturation 95% on 5 L. In general, he is awake, not in distress. Neurologic: He is oriented x3. Follows all commands. He has decreased sensation to light touch in the lower extremities. HEENT: There is no conjunctival hemorrhage. Oropharynx without lesions. Neck: Supple. Lymph Nodes: There is no inguinal, axillary, or epitrochlear lymphadenopathy. Heart is regular without murmurs, rubs, or gallops. Lungs are clear. Abdomen: Soft, obese, nontender, nondistended. Skin: There is no rash or splinter hemorrhages. Musculoskeletal: There is no joint synovitis. The left foot cast is wrapped. LABORATORY DATA: Creatinine 1.6. White blood cell count 14, hemoglobin 8, platelets 593. Please see impressions and recommendations outlined above, which I have discussed with Dr. Richards. Thank you for asking me to see Mr. Anderson in consultation. [id number]/[facility] #: [id number] [facility]
[2017-06-23] MEDS ORDERED: Dextrose 50% Syringe 50 ML* 25 GM/50 ML SYRINGE IV PUSH PRN (04:18)
[2017-06-23] MEDS ORDERED: Dextrose 50% Syringe 50 ML* 25 GM/50 ML SYRINGE ONE (04:20)
[2017-06-23] MEDS: Albuterol 2.5 MG/3 ML NEB.SOL* (0.083%) INH PRN (05:45)
[2017-06-23] MEDS: Levothyroxine TAB* 100 MCG TAB PO SCH (05:59)
[2017-06-23] MEDS: Vancomycin(*) 750 MG in NS 0.9% 250 ML* 250 ML IVPB SCH ×2 (06:00→18:18)
[2017-06-23] MEDS: oxyCODONE TAB* 5 MG TAB PO PRN ×2 (07:54→16:33)
[2017-06-23] MEDS: Mometasone/Formoter 200/5 MDI INH SCH ×2 (08:32→20:42)
[2017-06-23] MEDS: Albuterol HFA INHALER* 8 gm MDI INH PRN ×2 (08:32→16:26)
[2017-06-23] MEDS: Metolazone TAB* 5 MG PO SCH (08:54)
[2017-06-23] MEDS: Torsemide TAB* 20 MG PO SCH (08:54)
[2017-06-23] MEDS: Allopurinol TAB* 300 MG PO SCH (08:54)
[2017-06-23] MEDS: Atorvastatin* 40 MG TAB PO SCH (08:54)
[2017-06-23] MEDS: Metoprolol Tartrate TAB* 25 MG PO SCH ×2 (08:54→21:24)
[2017-06-23] MEDS: Spironolactone TAB* 25 MG PO SCH (08:55)
[2017-06-23] MEDS: Insulin ISOPH/REG 70/30 (*) 1 UNITS UNIT SUBCUT SCH ×2 (08:55→21:23)
[2017-06-23] MEDS: Insulin LISPRO* 1 UNITS UNIT SUBCUT SCH ×3 (08:56→18:01)
[2017-06-23] MEDS: Nystatin CREAM* 15 GM TUBE TOPICAL SCH ×2 (08:58→21:24)
--- NOTE | 2017-06-23 11:05 | PN ---
Subjective Date of Service: 06/23/17 Interval History: Patient seen and examined at bedside. Denies any acute concerns, including fever/chills, CP, SOB, abd pain, n/v. Currently reports adequate pain control in LLE. at bedside. Family History: Unchanged from Admission Social History: Unchanged from Admission Past Medical History: Unchanged from Admission Objective Active Medications: Acetaminophen (Tylenol Tab*) 650 mg PO Q4H PRN PRN Reason: FEVER/PAIN Last Admin: 06/21/17 21:39 Dose: 650 mg Albuterol (Ventolin 2.5 Mg/3 Ml Neb.Christy*) 2.5 mg INH Q4H PRN PRN Reason: SHORTNESS OF BREATH Last Admin: 06/23/17 05:45 Dose: 2.5 mg Albuterol (Ventolin Hfa Inhaler*) 2 puff INH Q4H PRN PRN Reason: SOB/WHEEZING Last Admin: 06/23/17 08:32 Dose: 2 puff Allopurinol (Zyloprim Tab*) 300 mg PO DAILY [facility] Last Admin: 06/23/17 08:54 Dose: 300 mg Atorvastatin Calcium (Lipitor*) 40 mg PO DAILY [facility] Last Admin: 06/23/17 08:54 Dose: 40 mg Dextrose (D50w Syringe 50 Ml*) 25 gm IV PUSH ONCE PRN PRN Reason: FS < 60 Fluticasone Propionate (Flonase Nasal [place] 50mcg*) 2 spray BOTH NARES DAILY PRN PRN Reason: Allergy Symptoms Sodium Chloride (Ns 0.9% 1000 Ml*) 1,000 mls @ 25 mls/hr IV PER RATE [facility] Last Admin: 06/22/17 08:24 Dose: 25 mls/hr Vancomycin HCl 750 mg/ Sodium (Chloride) 250 mls @ 166.667 mls/hr IVPB Q12H [facility] Last Admin: 06/23/17 06:00 Dose: 166.667 mls/hr Insulin Human Isoph/Insulin Regular (Humulin 70/30 (*)) 80 units SUBCUT BID [facility] Last Admin: 06/23/17 08:55 Dose: 80 unit Insulin Human Lispro (Humalog*) 10 units SUBCUT AC [facility] Last Admin: 06/23/17 08:56 Dose: Not Given Levothyroxine Sodium (Synthroid Tab*) 200 mcg PO 0600 [facility] Last Admin: 06/23/17 05:59 Dose: 200 mcg Metolazone (Zaroxolyn Tab*) 5 mg PO DAILY [facility] Last Admin: 06/23/17 08:54 Dose: 5 mg Metoprolol Tartrate (Lopressor Tab*) 25 mg PO BID [facility] Last Admin: 06/23/17 08:54 Dose: 25 mg Mometasone Furoate/Formoterol Fumar (Dulera 200/5 Mdi*) 2 puff INH BID [facility] PRN Reason: Protocol Last Admin: 06/23/17 08:32 Dose: 2 puff Nystatin (Nystatin Cream*) 1 applic TOPICAL BID [facility] Last Admin: 06/23/17 08:58 Dose: 1 applic Ondansetron HCl (Zofran Inj*) 4 mg IV Q4H PRN PRN Reason: NAUSEA/VOMITING Oxycodone HCl (Roxycodone Tab*) 5 mg PO Q8H PRN PRN Reason: PAIN Last Admin: 06/22/17 02:11 Dose: 5 mg Oxycodone HCl (Roxycodone Tab*) 10 mg PO Q4H PRN PRN Reason: PAIN - SEVERE Last Admin: 06/23/17 07:54 Dose: 10 mg Pharmacy Consult (Vancomycin Per Pharmacy*) 1 note FOLLOW UP . PRN PRN Reason: PER PROTOCOL Pharmacy Profile Note (Vancomycin Trough Check) 1 note FOLLOW UP ONCE ONE Stop: 06/24/17 06:01 Polyethylene Glycol/Electrolytes (Miralax*) 17 gm PO 0800,2100 PRN PRN Reason: nausea Last Admin: 06/22/17 13:48 Dose: 17 gm Spironolactone (Aldactone Tab*) 50 mg PO DAILY [facility] Last Admin: 06/23/17 08:55 Dose: 50 mg Torsemide (Demadex*) 40 mg PO DAILY [facility] Last Admin: 06/23/17 08:54 Dose: 40 mg Vital Signs - 8 hr 06/23/17 06/23/17 06/23/17 03:56 05:47 07:40 Temperature 97.5 F 98.0 F Pulse Rate 69 77 84 Respiratory 16 20 14 Rate Blood Pressure 150/50 183/64 (mmHg) O2 Sat by Pulse 96 99 98 Oximetry 06/23/17 06/23/17 06/23/17 07:54 08:00 08:36 Temperature Pulse Rate 70 Respiratory 20 16 16 Rate Blood Pressure (mmHg) O2 Sat by Pulse 98 99 Oximetry 06/23/17 06/23/17 08:37 08:53 Temperature Pulse Rate 70 88 Respiratory 16 Rate Blood Pressure 167/52 (mmHg) O2 Sat by Pulse 99 Oximetry Oxygen Devices in Use Now: Nasal Cannula Appearance: Male patient, lying in bed, NAD Eyes: No Scleral Icterus Ears/Nose/Mouth/Throat: Clear Oropharnyx, Mucous Membranes Moist Neck: NL Appearance and Movements; NL JVP Respiratory: Symmetrical Chest Expansion and Respiratory Effort, Clear to Auscultation Cardiovascular: NL Sounds; No Murmurs; No JVD, RRR, - - BLE edema Abdominal: NL Sounds; No Tenderness; No Distention Extremities: - - LLE dressing c/d/i Skin: - - candidal infections to scrotum, right chest Neurological: Alert and Oriented x 3, NL Muscle Strength and Tone Lines/Tubes/Other Access: Clean, Dry and Intact Peripheral IV Result Diagrams: 06/21/17 05:51 06/22/17 06:08 Microbiology and Other Data: Microbiology 06/21/17 18:15 Anaerobic Culture - Preliminary Wound - Left Leg Skin and Soft Tissue MRSA/MSSA (PCR - Final Mrsa Positive S.aureus Positive Gram Stain - Final Wound Culture - Preliminary Staphylococcus Aureus Assess/Plan/Problems-Billing Assessment: Mr. Anderson is a 51 yo male with a PMH significant for DM, MRSA of left foot, VENTURA , chronic hypoxemic resp failure, HTN, PVD, hypothyroidism, and DVT/PE who presented with left foot pain secondary to left lateral foot abscess and chronic osteomyelitis; he is positive for MRSA bacteremia and MRSA in left foot wound, now s/p I&D. - Patient Problems (1) MRSA bacteremia Code(s): R78.81 - BACTEREMIA Comment: Positive blood cultures from 06/20 and positive wound culture from left leg on . Continue vancomycin Appreciate ID input (2) Abscess Code(s): L02.91 - CUTANEOUS ABSCESS, UNSPECIFIED Comment: s/p I&D on 06/[address] Muñoz Cleaned abscess and left wound open to drain. Did not biopsy bone with overlying abscess. Plan to return to OR Sunday for washout and attempt bone biopsy at that time. Wound culture positive for MRSA Continue vancomycin. (3) Osteomyelitis Code(s): M86.9 - OSTEOMYELITIS, UNSPECIFIED Comment: Continue vancomycin Pending bone biopsy Sunday (4) Pulmonary embolism Code(s): I26.99 - OTHER PULMONARY EMBOLISM WITHOUT ACUTE COR PULMONALE Comment : History of PE Continue rivaroxaban when okay with orthopedic surgery. (5) Atrial fibrillation Code(s): I48.91 - UNSPECIFIED ATRIAL FIBRILLATION Comment: Continue metoprolol; rivaroxaban on hold for surgery, resume when okay with ortho. Converted to NSR 06/20 Telemetry removed at patient's request (6) Insulin dependent diabetes mellitus Code(s): E11.9 - TYPE 2 DIABETES MELLITUS WITHOUT COMPLICATIONS; Z79.4 - CORRECTION (CURRENT) USE OF INSULIN Comment: Better controlled, though still with some occasional low BG No changes to current regimen, continue to trend Complicated by hypoglycemia 06/21 - received late dosing 2AM while NPO Avoid giving late NPH insulin Preprandial FSG 06/22 >200 with adjustment to insulin dose (7) VENTURA (obstructive sleep apnea) Code(s): G47.33 - OBSTRUCTIVE SLEEP APNEA (ADULT) (PEDIATRIC) Comment: Continue CPAP (8) DVT prophylaxis Comment: Xarelto, which is currently on hold for surgery SQ heparin while off Xarelto. Hold on Sunday in anticipation of surgery Status and Disposition: Inpatient admission. Anticipate extended LOS due to MRSA bacteremia and extensive infection
[2017-06-23] MEDS: NS 0.9% 1000 ML* 1,000 ML IV SCH (16:33)
[2017-06-23] MEDS: Heparin VIAL(*) 5000 UNITS/ML VIAL (FIVE THOUSAND) SUBCUT SCH (21:25)
[2017-06-24] MEDS: oxyCODONE TAB* 5 MG TAB PO PRN ×3 (00:59→15:08)
[2017-06-24] MEDS: Albuterol 2.5 MG/3 ML NEB.SOL* (0.083%) INH PRN (01:18)
[2017-06-24 05:48] LABS: Hematocrit 27 % (42-52); Hemoglobin 8.4 g/dl (14.0-18.0); Mean Corpuscular HGB Conc 31 g/dl (31-36); Mean Corpuscular Hemoglobin 26 pg (27-31); Mean Corpuscular Volume 84 fL (80-94); Mean Platelet Volume 7 um3 (7.4-10.4); Platelet Count 552 10^3/ul (150-450); Red Blood Count 3.21 10^6/ul (4.0-5.4); Red Cell Distribution Width 18 % (10.5-15); White Blood Count 11.6 10^3/ul (3.5-10.8)
[2017-06-24 05:56] LABS: EGFR Non-African American 49.1 (>60)
[2017-06-24] MEDS ORDERED: Vancomycin Trough Check NOTE FOLLOW UP ONE (06:00)
[2017-06-24 06:13] LABS: Vancomycin Trough 19.7 mcg/mL
[2017-06-24 06:25] LABS: ABS Basophils 0.1 10^3/ul (0-0.2); ABS Eosinophils 0.5 10^3/ul (0-0.6); ABS Lymphocytes 0.6 10^3/ul (1.0-4.8); ABS Monocytes 0.9 10^3/ul (0-0.8); ABS Neutrophils 9.6 10^3/ul (1.5-7.7); ABS Nucleated RBC 0.1 10^3/ul; Lymphocyte % 4.9 % (25-47); Nucleated Red Blood Cells % 0.4
[2017-06-24] MEDS: Heparin VIAL(*) 5000 UNITS/ML VIAL (FIVE THOUSAND) SUBCUT SCH ×3 (06:28→21:40)
[2017-06-24] MEDS: Levothyroxine TAB* 100 MCG TAB PO SCH (06:29)
[2017-06-24] MEDS: Vancomycin(*) 750 MG in NS 0.9% 250 ML* 250 ML IVPB SCH (06:29)
[2017-06-24] MEDS: Mometasone/Formoter 200/5 MDI INH SCH ×2 (08:25→19:40)
[2017-06-24] MEDS: Torsemide TAB* 20 MG PO SCH (08:27)
[2017-06-24] MEDS: Insulin ISOPH/REG 70/30 (*) 1 UNITS UNIT SUBCUT SCH (08:27)
[2017-06-24] MEDS: Spironolactone TAB* 25 MG PO SCH (08:28)
[2017-06-24] MEDS: Allopurinol TAB* 300 MG PO SCH (08:28)
[2017-06-24] MEDS: Metoprolol Tartrate TAB* 25 MG PO SCH ×2 (08:28→21:40)
[2017-06-24] MEDS: Atorvastatin* 40 MG TAB PO SCH (08:28)
[2017-06-24] MEDS: Nystatin CREAM* 15 GM TUBE TOPICAL SCH ×2 (08:28→21:47)
[2017-06-24] MEDS: Metolazone TAB* 5 MG PO SCH (08:28)
[2017-06-24] MEDS: Insulin LISPRO* 1 UNITS UNIT SUBCUT SCH ×3 (08:49→18:00)
--- NOTE | 2017-06-24 09:21 | PN ---
Progress Note - Progress Note Date of Service: 06/24/17 SOAP: Subjective: [Patient reports pain controlled. Denies CP, SOB, N/T.] Objective: [A and O x 3, NAD L foot dressing C/D/I Vital Signs: Temp Pulse Resp BP Pulse Ox 98.3 F 65 20 156/58 100 06/24/17 07:27 06/24/17 08:46 06/24/17 08:49 06/24/17 07:28 06/24/17 07:27 Laboratory Results - last 24 hr 06/23/17 06/23/17 06/23/17 11:41 17:21 21:34 WBC RBC Hgb Hct MCV MCH MCHC RDW Plt Count MPV Neut % (Auto) Lymph % (Auto) [place] % (Auto) Eos % (Auto) Baso % (Auto) Absolute Neuts (auto) Absolute Lymphs (auto) Absolute Monos (auto) Absolute Eos (auto) Absolute Basos (auto) Absolute Nucleated RBC Nucleated RBC % Sodium Potassium Chloride Carbon Dioxide Anion Gap BUN Creatinine Est GFR ( Amer) Est GFR (Non-Af Amer) BUN/Creatinine Ratio Glucose POC Glucose (mg/dL) 157 H 131 H 149 H Calcium Vancomycin Trough 06/24/17 06/24/17 06/24/17 05:19 05:28 05:28 WBC 11.6 H RBC 3.21 L Hgb 8.4 L Hct 27 L MCV 84 MCH 26 L MCHC 31 RDW 18 H Plt Count 552 H MPV 7 L Neut % (Auto) 82.6 Lymph % (Auto) 4.9 L [place] % (Auto) 7.6 Eos % (Auto) 4.0 Baso % (Auto) 0.9 Absolute Neuts (auto) 9.6 H Absolute Lymphs (auto) 0.6 L Absolute Monos (auto) 0.9 H Absolute Eos (auto) 0.5 Absolute Basos (auto) 0.1 Absolute Nucleated RBC 0.1 Nucleated RBC % 0.4 Sodium 133 Potassium 4.5 Chloride 99 L Carbon Dioxide 29 Anion Gap 5 BUN 76 H Creatinine 1.50 H Est GFR ( Amer) 63.2 Est GFR (Non-Af Amer) 49.1 BUN/Creatinine Ratio 50.7 H Glucose 67 L POC Glucose (mg/dL) 87 Calcium 8.8 Vancomycin Trough 19.7 06/24/17 07:48 WBC RBC Hgb Hct MCV MCH MCHC RDW Plt Count MPV Neut % (Auto) Lymph % (Auto) [place] % (Auto) Eos % (Auto) Baso % (Auto) Absolute Neuts (auto) Absolute Lymphs (auto) Absolute Monos (auto) Absolute Eos (auto) Absolute Basos (auto) Absolute Nucleated RBC Nucleated RBC % Sodium Potassium Chloride Carbon Dioxide Anion Gap BUN Creatinine Est GFR ( Amer) Est GFR (Non-Af Amer) BUN/Creatinine Ratio Glucose POC Glucose (mg/dL) 128 H Calcium Vancomycin Trough ] Assessment: [56 yo s/p I and D L foot 06/21/17, chronic osteomyelitis, MRSA (+)] Plan: [NWB LLE Con't antibiotics Return to OR tomorrow (Sunday) with Dr. Muñoz for dressing change, possible bone biopsy NPO after midnight]
[2017-06-24] MEDS ORDERED: Insulin ISOPH/REG 70/30 (*) 1 UNITS UNIT SUBCUT ONE ×3 (15:56→21:00)
--- NOTE | 2017-06-24 15:58 | PN ---
Subjective Date of Service: 06/24/17 Interval History: Patient has no complaints. Adequate pain control in LE. No CP, SOB, N/V, abdominal pain, Diarrhea, constipation, or other pain. Concerned about hypoglycemia last time he had surgery. Family History: Unchanged from Admission Social History: Unchanged from Admission Past Medical History: Unchanged from Admission Objective Active Medications: Acetaminophen (Tylenol Tab*) 650 mg PO Q4H PRN PRN Reason: FEVER/PAIN Last Admin: 06/21/17 21:39 Dose: 650 mg Albuterol (Ventolin 2.5 Mg/3 Ml Neb.Christy*) 2.5 mg INH Q4H PRN PRN Reason: SHORTNESS OF BREATH Last Admin: 06/24/17 01:18 Dose: 2.5 mg Albuterol (Ventolin Hfa Inhaler*) 2 puff INH Q4H PRN PRN Reason: SOB/WHEEZING Last Admin: 06/23/17 16:26 Dose: 2 puff Allopurinol (Zyloprim Tab*) 300 mg PO DAILY [facility] Last Admin: 06/24/17 08:28 Dose: 300 mg Atorvastatin Calcium (Lipitor*) 40 mg PO DAILY [facility] Last Admin: 06/24/17 08:28 Dose: 40 mg Dextrose (D50w Syringe 50 Ml*) 25 gm IV PUSH ONCE PRN PRN Reason: FS < 60 Fluticasone Propionate (Flonase Nasal [place] 50mcg*) 2 spray BOTH NARES DAILY PRN PRN Reason: Allergy Symptoms Heparin Sodium (Porcine) (Heparin Vial(*)) 5,000 units SUBCUT Q8HR [facility] Stop: 06/24/17 22:01 Last Admin: 06/24/17 12:24 Dose: 5,000 units Sodium Chloride (Ns 0.9% 1000 Ml*) 1,000 mls @ 25 mls/hr IV PER RATE [facility] Last Admin: 06/23/17 16:33 Dose: 25 mls/hr Vancomycin HCl 1,250 mg/ (Sodium Chloride) 250 mls @ 166.667 mls/hr IVPB Q24H [facility] Insulin Human Lispro (Humalog*) 10 units SUBCUT AC [facility] Last Admin: 06/24/17 12:25 Dose: 10 unit Levothyroxine Sodium (Synthroid Tab*) 200 mcg PO 0600 [facility] Last Admin: 06/24/17 06:29 Dose: 200 mcg Metolazone (Zaroxolyn Tab*) 5 mg PO DAILY [facility] Last Admin: 06/24/17 08:28 Dose: 5 mg Metoprolol Tartrate (Lopressor Tab*) 25 mg PO BID [facility] Last Admin: 06/24/17 08:28 Dose: 25 mg Mometasone Furoate/Formoterol Fumar (Dulera 200/5 Mdi*) 2 puff INH BID [facility] PRN Reason: Protocol Last Admin: 06/24/17 08:25 Dose: 2 puff Nystatin (Nystatin Cream*) 1 applic TOPICAL BID [facility] Last Admin: 06/24/17 08:28 Dose: 1 applic Ondansetron HCl (Zofran Inj*) 4 mg IV Q4H PRN PRN Reason: NAUSEA/VOMITING Oxycodone HCl (Roxycodone Tab*) 5 mg PO Q8H PRN PRN Reason: PAIN Last Admin: 06/22/17 02:11 Dose: 5 mg Oxycodone HCl (Roxycodone Tab*) 10 mg PO Q4H PRN PRN Reason: PAIN - SEVERE Last Admin: 06/24/17 15:08 Dose: 10 mg Pharmacy Consult (Vancomycin Per Pharmacy*) 1 note FOLLOW UP . PRN PRN Reason: PER PROTOCOL Pharmacy Profile Note (Vancomycin Trough Check) 1 note FOLLOW UP 193 ONE Stop: 06/27/17 19:31 Polyethylene Glycol/Electrolytes (Miralax*) 17 gm PO 0800,2100 PRN PRN Reason: nausea Last Admin: 06/22/17 13:48 Dose: 17 gm Spironolactone (Aldactone Tab*) 50 mg PO DAILY [facility] Last Admin: 06/24/17 08:28 Dose: 50 mg Torsemide (Demadex*) 40 mg PO DAILY [facility] Last Admin: 06/24/17 08:27 Dose: 40 mg Vital Signs - 8 hr 06/24/17 06/24/17 06/24/17 08:00 08:46 08:49 Temperature Pulse Rate 65 Respiratory 20 20 Rate Blood Pressure (mmHg) O2 Sat by Pulse 100 Oximetry 06/24/17 06/24/17 06/24/17 12:27 12:38 15:08 Temperature 98.8 F Pulse Rate 83 Respiratory 20 18 20 Rate Blood Pressure 137/65 (mmHg) O2 Sat by Pulse 99 Oximetry Oxygen Devices in Use Now: Nasal Cannula Appearance: Patient is a 51yo morbidly obese male who appears older than stated age and is sitting in the bed in NAD. Eyes: No Scleral Icterus, PERRLA Ears/Nose/Mouth/Throat: NL Teeth, Lips, Gums, Clear Oropharnyx, Mucous Membranes Moist Neck: NL Appearance and Movements; NL JVP, Trachea Midline Respiratory: Symmetrical Chest Expansion and Respiratory Effort, Clear to Auscultation Cardiovascular: NL Sounds; No Murmurs; No JVD, RRR, No Edema Abdominal: NL Sounds; No Tenderness; No Distention, No Hepatosplenomegaly, - - Exam limited by obesity. Lymphatic: No Cervical Adenopathy Extremities: No Edema, No Clubbing, Cyanosis, - - LLE covered with dressing with scant drainage. Positive capillary refill. Skin: No Nodules or Sclerosis, - - Very large mass on right chest. No signs of inflammation. Non-tender. Small open area on gluteal cleft. Neurological: Alert and Oriented x 3, NL Sensation, NL Muscle Strength and Tone Result Diagrams: 06/24/17 05:28 06/24/17 05:28 Microbiology and Other Data: Microbiology 06/21/17 18:15 Anaerobic Culture - Preliminary Wound - Left Leg Skin and Soft Tissue MRSA/MSSA (PCR - Final Mrsa Positive S.aureus Positive Gram Stain - Final Wound Culture - Preliminary Staphylococcus Aureus Assess/Plan/Problems-Billing Assessment: Mr. Anderson is a 51 yo male with a PMH significant for DM, MRSA of left foot, VENTURA , chronic hypoxemic resp failure, HTN, PVD, hypothyroidism, and DVT/PE who presented with left foot pain secondary to left lateral foot abscess and chronic osteomyelitis; he is positive for MRSA bacteremia and MRSA in left foot wound, now s/p I&D. Plan for repeat washout tomorrow with Ortho. - Patient Problems (1) Abscess Current Visit: Yes Status: Acute Code(s): L02.91 - CUTANEOUS ABSCESS, UNSPECIFIED SNOMED Code(s): 591288820 Comment: s/p I&D on 06/[address] Muñoz Cleaned abscess and left wound open to drain. Did not biopsy bone with overlying abscess. Plan to return to OR Sunday 06/25 for washout and attempt bone biopsy at that time. Wound culture positive for MRSA Continue vancomycin. (2) Osteomyelitis Current Visit: Yes Status: Chronic Code(s): M86.9 - OSTEOMYELITIS, UNSPECIFIED SNOMED Code(s): 99956532 Comment: Continue vancomycin Pending bone biopsy Sunday (3) Atrial fibrillation Current Visit: Yes Status: Acute Priority: High Code(s): I48.91 - UNSPECIFIED ATRIAL FIBRILLATION SNOMED Code(s): 58216630 Comment: Continue metoprolol; rivaroxaban on hold for surgery, resume when okay with ortho. Converted to NSR 06/20 Telemetry removed at patient's request (4) MRSA bacteremia Current Visit: Yes Status: Acute Code(s): R78.81 - BACTEREMIA SNOMED Code( s): 26977778306760174 Comment: Positive blood cultures from 06/20 and positive wound culture from left leg on . Continue vancomycin Appreciate ID input (5) Pulmonary embolism Current Visit: Yes Status: Acute Code(s): I26.99 - OTHER PULMONARY EMBOLISM WITHOUT ACUTE COR PULMONALE SNOMED Code(s): 82716639 Comment: History of PE Continue rivaroxaban when okay with orthopedic surgery. 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 SNOMED Code(s): 56951609 Comment: Better controlled, though still with some occasional low BG No changes to current regimen, continue to trend Complicated by hypoglycemia 06/21 - received late dosing 2AM while NPO Avoid giving late NPH insulin Preprandial FSG 06/22 >200 with adjustment to insulin dose (7) VENTURA (obstructive sleep apnea) Current Visit: Yes Status: Chronic Code(s): G47.33 - OBSTRUCTIVE SLEEP APNEA (ADULT) (PEDIATRIC) SNOMED Code(s): 60158354 Comment: Continue CPAP (8) DVT prophylaxis Current Visit: Yes Status: Acute Code(s): ICK7383 - SNOMED Code(s): 127078697 Comment: Xarelto held for surgery. SCDs and heparin up until tonight. (9) Full code status Current Visit: No Status: Acute Priority: Medium Onset Date: 06/10/14 Code(s): Z78.9 - OTHER SPECIFIED HEALTH STATUS SNOMED Code(s): 697256322 Status and Disposition: Inpatient admission. Anticipate extended LOS due to MRSA bacteremia and extensive infection
[2017-06-24] MEDS: NS 0.9% 1000 ML* 1,000 ML IV SCH (18:02)
[2017-06-24] MEDS: Vancomycin(*) 1,250 MG IV IVPB SCH ×2 (21:40)
[2017-06-25] MEDS: Levothyroxine TAB* 100 MCG TAB PO SCH (05:23)
[2017-06-25] MEDS: Mometasone/Formoter 200/5 MDI INH SCH ×2 (07:44→19:50)
[2017-06-25] MEDS: Albuterol 2.5 MG/3 ML NEB.SOL* (0.083%) INH PRN (07:44)
[2017-06-25] MEDS: Insulin LISPRO* 1 UNITS UNIT SUBCUT SCH ×3 (07:46→17:04)
[2017-06-25] MEDS: Insulin ISOPH/REG 70/30 (*) 1 UNITS UNIT SUBCUT SCH ×2 (08:02→17:07)
[2017-06-25] MEDS: Metoprolol Tartrate TAB* 25 MG PO SCH ×2 (08:27→21:34)
[2017-06-25] MEDS: Atorvastatin* 40 MG TAB PO SCH (08:28)
[2017-06-25] MEDS: Allopurinol TAB* 300 MG PO SCH (08:28)
[2017-06-25] MEDS: Torsemide TAB* 20 MG PO SCH (08:30)
[2017-06-25] MEDS: Spironolactone TAB* 25 MG PO SCH (08:30)
[2017-06-25] MEDS: Metolazone TAB* 5 MG PO SCH (08:30)
[2017-06-25 09:28] LABS: Hematocrit 28 % (42-52); Hemoglobin 8.5 g/dl (14.0-18.0); Mean Corpuscular HGB Conc 31 g/dl (31-36); Mean Corpuscular Hemoglobin 26 pg (27-31); Mean Corpuscular Volume 85 fL (80-94); Mean Platelet Volume 7 um3 (7.4-10.4); Platelet Count 541 10^3/ul (150-450); Red Blood Count 3.27 10^6/ul (4.0-5.4); Red Cell Distribution Width 18 % (10.5-15); White Blood Count 12.5 10^3/ul (3.5-10.8)
[2017-06-25 09:45] LABS: EGFR Non-African American 56.5 (>60)
[2017-06-25 10:09] LABS: ABS Basophils 0.1 10^3/ul (0-0.2); ABS Eosinophils 0.6 10^3/ul (0-0.6); ABS Lymphocytes 0.6 10^3/ul (1.0-4.8); ABS Monocytes 0.9 10^3/ul (0-0.8); ABS Neutrophils 10.5 10^3/ul (1.5-7.7); ABS Nucleated RBC 0 10^3/ul; Eosinophil % 4.5 % (0-6); Lymphocyte % 4.4 % (25-47); Nucleated Red Blood Cells % 0.2
[2017-06-25] MEDS: oxyCODONE TAB* 5 MG TAB PO PRN ×3 (10:25→20:24)
[2017-06-25] MEDS: Nystatin CREAM* 15 GM TUBE TOPICAL SCH ×2 (11:25→22:09)
[2017-06-25] MEDS ORDERED: Midazolam* 1 MG/ML 2 ML VIAL (2 MG) ONE (14:04)
[2017-06-25] MEDS ORDERED: Buffered Lidocaine 0.9% SYRIN* 5 ML/SYR SYRINGE INTRADERM ONE (14:51)
[2017-06-25] MEDS ORDERED: Naloxone* 0.4 MG/ML 1 ML VIAL IV PRN (14:52)
[2017-06-25] MEDS ORDERED: Levalbuterol 0.63MG/3ML NEB* UNIT OF USE INH PRN (14:52)
[2017-06-25] MEDS ORDERED: NS 0.9% 1000 ML* 1,000 ML IV SCH (15:00)
[2017-06-25] MEDS ORDERED: Lidocaine 2% PF* 10 ML AMP ONE (15:02)
[2017-06-25] MEDS ORDERED: fentaNYL* 50 MCG/ML 2 ML VIAL (100 MCG VIAL) ONE ×2 (15:06→15:59)
[2017-06-25] MEDS ORDERED: Lidocaine 2% PF * 5 ML VIAL ONE (15:07)
[2017-06-25] MEDS ORDERED: Propofol* 10 MG/ML 20 ML BTL IV PUSH ONE (15:07)
[2017-06-25] MEDS ORDERED: Esmolol* 10 MG/ML 10 ML (100 mg) ONE (15:31)
[2017-06-25] MEDS: fentaNYL* 50 MCG/ML 2 ML VIAL (100 MCG VIAL) IV PRN ×4 (16:00→16:28)
[2017-06-25] MEDS ORDERED: Labetalol IV* 5 MG/ML 20 ML VIAL ONE (16:13)
[2017-06-25] MEDS ORDERED: oxyCODONE TAB* 5 MG TAB ONE (16:30)
--- NOTE | 2017-06-25 17:31 | PN ---
Subjective Date of Service: 06/25/17 Interval History: Patient examined after surgery. No complications except tachycardia with movement. Patient has significant pain in LLE at surgical site. Patient was only sedated for procedure without GETA. Patient has no other complaints besides hunger. Patient had persistently low BS throughout the day without insulin and requiring D50. Denies F/C, N/V, abdominal pain, diarrhea, constipation, CP, SOB, or other pain. Family History: Unchanged from Admission Social History: Unchanged from Admission Past Medical History: Unchanged from Admission Objective Active Medications: Acetaminophen (Tylenol Tab*) 650 mg PO Q4H PRN PRN Reason: FEVER/PAIN Last Admin: 06/21/17 21:39 Dose: 650 mg Albuterol (Ventolin 2.5 Mg/3 Ml Neb.Christy*) 2.5 mg INH Q4H PRN PRN Reason: SHORTNESS OF BREATH Last Admin: 06/25/17 07:44 Dose: 2.5 mg Albuterol (Ventolin Hfa Inhaler*) 2 puff INH Q4H PRN PRN Reason: SOB/WHEEZING Last Admin: 06/23/17 16:26 Dose: 2 puff Allopurinol (Zyloprim Tab*) 300 mg PO DAILY [facility] Last Admin: 06/25/17 08:28 Dose: 300 mg Atorvastatin Calcium (Lipitor*) 40 mg PO DAILY [facility] Last Admin: 06/25/17 08:28 Dose: 40 mg Dextrose (D50w Syringe 50 Ml*) 25 gm IV PUSH ONCE PRN PRN Reason: FS < 60 Last Admin: 06/25/17 07:49 Dose: 25 gm Fluticasone Propionate (Flonase Nasal [place] 50mcg*) 2 spray BOTH NARES DAILY PRN PRN Reason: Allergy Symptoms Sodium Chloride (Ns 0.9% 1000 Ml*) 1,000 mls @ 25 mls/hr IV PER RATE [facility] Last Admin: 06/24/17 18:02 Dose: 25 mls/hr Vancomycin HCl 1,250 mg/ (Sodium Chloride) 250 mls @ 166.667 mls/hr IVPB Q24H [facility] Last Admin: 06/24/17 21:40 Dose: 166.667 mls/hr Insulin Human Isoph/Insulin Regular (Humulin 70/30 (*)) 80 units SUBCUT 0800, 1700 [facility] Insulin Human Lispro (Humalog*) 10 units SUBCUT AC [facility] Last Admin: 06/25/17 17:04 Dose: Not Given Insulin Human Lispro (Humalog*) 0 units SUBCUT ONCE ONE PRN Reason: Protocol Stop: 06/25/17 21:01 Levothyroxine Sodium (Synthroid Tab*) 200 mcg PO 0600 [facility] Last Admin: 06/25/17 05:23 Dose: Not Given Metolazone (Zaroxolyn Tab*) 5 mg PO DAILY [facility] Last Admin: 06/25/17 08:30 Dose: Not Given Metoprolol Tartrate (Lopressor Tab*) 25 mg PO BID [facility] Last Admin: 06/25/17 08:27 Dose: 25 mg Mometasone Furoate/Formoterol Fumar (Dulera 200/5 Mdi*) 2 puff INH BID [facility] PRN Reason: Protocol Last Admin: 06/25/17 07:44 Dose: 2 puff Nystatin (Nystatin Cream*) 1 applic TOPICAL BID [facility] Last Admin: 06/25/17 11:25 Dose: Not Given Ondansetron HCl (Zofran Inj*) 4 mg IV Q4H PRN PRN Reason: NAUSEA/VOMITING Oxycodone HCl (Roxycodone Tab*) 5 mg PO Q8H PRN PRN Reason: PAIN Last Admin: 06/22/17 02:11 Dose: 5 mg Oxycodone HCl (Roxycodone Tab*) 10 mg PO Q4H PRN PRN Reason: PAIN - SEVERE Last Admin: 06/25/17 16:30 Dose: 10 mg Pharmacy Consult (Vancomycin Per Pharmacy*) 1 note FOLLOW UP . PRN PRN Reason: PER PROTOCOL Pharmacy Profile Note (Vancomycin Trough Check) 1 note FOLLOW UP 193 ONE Stop: 06/27/17 19:31 Polyethylene Glycol/Electrolytes (Miralax*) 17 gm PO 0800,2100 PRN PRN Reason: nausea Last Admin: 06/22/17 13:48 Dose: 17 gm Spironolactone (Aldactone Tab*) 50 mg PO DAILY [facility] Last Admin: 06/25/17 08:30 Dose: Not Given Torsemide (Demadex*) 40 mg PO DAILY [facility] Last Admin: 06/25/17 08:30 Dose: Not Given Vital Signs - 8 hr 06/25/17 06/25/17 06/25/17 10:25 11:47 12:25 Temperature 98.8 F Pulse Rate 80 Respiratory 20 18 17 Rate Blood Pressure 135/47 (mmHg) O2 Sat by Pulse 100 Oximetry 06/25/17 06/25/17 06/25/17 15:50 15:55 16:00 Temperature 97.5 F Pulse Rate 90 97 96 Respiratory 20 24 21 Rate Blood Pressure 109/44 125/56 135/100 (mmHg) O2 Sat by Pulse 94 92 92 Oximetry 06/25/17 06/25/17 06/25/17 16:12 16:13 16:15 Temperature Pulse Rate 133 95 Respiratory 20 15 15 Rate Blood Pressure 113/51 135/50 (mmHg) O2 Sat by Pulse 20 91 Oximetry 06/25/17 06/25/17 06/25/17 16:20 16:23 16:28 Temperature Pulse Rate 92 Respiratory 17 17 20 Rate Blood Pressure (mmHg) O2 Sat by Pulse 92 Oximetry 06/25/17 06/25/17 06/25/17 16:30 16:40 16:59 Temperature 99.2 F Pulse Rate 96 95 95 Respiratory 18 20 20 Rate Blood Pressure 116/71 133/52 (mmHg) O2 Sat by Pulse 92 92 96 Oximetry 06/25/17 06/25/17 17:00 17:01 Temperature 99.2 F Pulse Rate 95 Respiratory 20 20 Rate Blood Pressure 133/52 (mmHg) O2 Sat by Pulse 96 Oximetry Oxygen Devices in Use Now: Nasal Cannula Appearance: Patient is a 51yo morbidly obese male who appears older than stated age and is sitting in the bed in [facility]. Eyes: No Scleral Icterus, PERRLA Ears/Nose/Mouth/Throat: NL Teeth, Lips, Gums, Clear Oropharnyx, Mucous Membranes Moist Neck: NL Appearance and Movements; NL JVP, Trachea Midline Respiratory: Symmetrical Chest Expansion and Respiratory Effort, Clear to Auscultation, - - Exam limited by body habitus. Cardiovascular: NL Sounds; No Murmurs; No JVD, RRR, No Edema Abdominal: NL Sounds; No Tenderness; No Distention, No Hepatosplenomegaly Lymphatic: No Cervical Adenopathy Extremities: No Edema, No Clubbing, Cyanosis, - - Good capillary refill in LLE distal to cast. Skin: No Nodules or Sclerosis, - - Lipoma on right chest, stable. New dressing on surgical incision on left foot. Neurological: Alert and Oriented x 3, NL Sensation, NL Muscle Strength and Tone Result Diagrams: 06/25/17 08:49 06/25/17 08:49 Microbiology and Other Data: Microbiology 06/21/17 18:15 Anaerobic Culture - Preliminary Wound - Left Leg Skin and Soft Tissue MRSA/MSSA (PCR - Final Mrsa Positive S.aureus Positive Gram Stain - Final Wound Culture - Preliminary Staphylococcus Aureus Assess/Plan/Problems-Billing Assessment: Mr. Anderson is a 51 yo male with a PMH significant for DM, MRSA of left foot, VENTURA , chronic hypoxemic resp failure, HTN, PVD, hypothyroidism, and DVT/PE who presented with left foot pain secondary to left lateral foot abscess and chronic osteomyelitis; he is positive for MRSA bacteremia and MRSA in left foot wound, now s/p I&D and repeat washout with bone biopsy. - Patient Problems (1) Abscess Current Visit: Yes Status: Acute Code(s): L02.91 - CUTANEOUS ABSCESS, UNSPECIFIED SNOMED Code(s): 942007658 Comment: s/p I&D on 06/[address] Muñoz Cleaned abscess and left wound open to drain. Returned to OR Sunday 06/25 for washout and bone biopsy taken Wound culture positive for MRSA Continue vancomycin. NWB on left leg. (2) Osteomyelitis Current Visit: Yes Status: Chronic Code(s): M86.9 - OSTEOMYELITIS, UNSPECIFIED SNOMED Code(s): 65063725 Comment: Continue vancomycin Bone biopsy taken. (3) Atrial fibrillation Current Visit: Yes Status: Acute Priority: High Code(s): I48.91 - UNSPECIFIED ATRIAL FIBRILLATION SNOMED Code(s): 52360401 Comment: Continue metoprolol; rivaroxaban on hold for surgery, resume when okay with ortho. Converted to NSR 06/20 Telemetry removed at patient's request Regular rhythm on exam. (4) MRSA bacteremia Current Visit: Yes Status: Acute Code(s): R78.81 - BACTEREMIA SNOMED Code( s): 67441029424037475 Comment: Positive blood cultures from 06/20 and positive wound culture from left leg on . Continue vancomycin Appreciate ID input (5) Pulmonary embolism Current Visit: Yes Status: Acute Code(s): I26.99 - OTHER PULMONARY EMBOLISM WITHOUT ACUTE COR PULMONALE SNOMED Code(s): 41142484 Comment: History of PE Continue rivaroxaban when okay with orthopedic surgery. 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 One dose of SSI tonight. Resume previous insulin regimen tomorrow. (7) VENTURA (obstructive sleep apnea) Current Visit: Yes Status: Chronic Code(s): G47.33 - OBSTRUCTIVE SLEEP APNEA (ADULT) (PEDIATRIC) SNOMED Code(s): 48920292 Comment: Continue CPAP (8) DVT prophylaxis Current Visit: Yes Status: Acute Code(s): ZOF9658 - SNOMED Code(s): 514112058 Comment: Xarelto held for surgery. SCDs. Resume heparin tomorrow. (9) Full code status Current Visit: No Status: Acute Priority: Medium Onset Date: 06/10/14 Code(s): Z78.9 - OTHER SPECIFIED HEALTH STATUS SNOMED Code(s): 239111859 Status and Disposition: Inpatient admission. Anticipate extended LOS due to MRSA bacteremia and extensive infection. Patient states he would only go to [facility] for antibiotics.
[2017-06-25] MEDS: Vancomycin(*) 1,250 MG IV IVPB SCH ×2 (20:24)
[2017-06-25] MEDS ORDERED: Insulin LISPRO* 1 UNITS UNIT SUBCUT ONE (21:00)
[2017-06-26] MEDS: oxyCODONE TAB* 5 MG TAB PO PRN ×5 (01:39→23:58)
[2017-06-26] MEDS: Levothyroxine TAB* 100 MCG TAB PO SCH (06:07)
[2017-06-26 07:43] LABS: Hematocrit 29 % (42-52); Hemoglobin 8.7 g/dl (14.0-18.0); Mean Corpuscular HGB Conc 31 g/dl (31-36); Mean Corpuscular Hemoglobin 26 pg (27-31); Mean Corpuscular Volume 86 fL (80-94); Mean Platelet Volume 7 um3 (7.4-10.4); Platelet Count 545 10^3/ul (150-450); Red Blood Count 3.33 10^6/ul (4.0-5.4); Red Cell Distribution Width 19 % (10.5-15)
[2017-06-26 07:57] LABS: EGFR Non-African American 66.8 (>60)
[2017-06-26 08:40] LABS: Monocytes % 9 % (0-13)
[2017-06-26] MEDS: Insulin ISOPH/REG 70/30 (*) 1 UNITS UNIT SUBCUT SCH ×2 (08:50→17:32)
[2017-06-26] MEDS: Insulin LISPRO* 1 UNITS UNIT SUBCUT SCH ×3 (08:50→17:32)
[2017-06-26] MEDS: Allopurinol TAB* 300 MG PO SCH (08:51)
[2017-06-26] MEDS: Metoprolol Tartrate TAB* 25 MG PO SCH ×2 (08:51→20:36)
[2017-06-26] MEDS: Metolazone TAB* 5 MG PO SCH (08:51)
[2017-06-26] MEDS: Atorvastatin* 40 MG TAB PO SCH (08:51)
[2017-06-26] MEDS: Spironolactone TAB* 25 MG PO SCH (08:51)
[2017-06-26] MEDS: Nystatin CREAM* 15 GM TUBE TOPICAL SCH ×2 (08:51→20:37)
[2017-06-26] MEDS: Torsemide TAB* 20 MG PO SCH (08:51)
[2017-06-26] MEDS: Albuterol 2.5 MG/3 ML NEB.SOL* (0.083%) INH PRN ×2 (09:20→18:01)
[2017-06-26] MEDS: Mometasone/Formoter 200/5 MDI INH SCH ×2 (09:20→19:36)
[2017-06-26] MEDS ORDERED: Saline NASAL DROPS 0.65%* 1 DROP BTL BOTH NARES PRN (10:11)
--- NOTE | 2017-06-26 11:25 | OP ---
DATE OF OPERATION: 06/25/17 - ROOM #412 DATE OF : 63. SURGEON: Rik Muñoz MD. HOSPICE NURSE PRACTITIONER: RAI Sterling. PRE-OP DIAGNOSIS: Left soft tissue abscess, hindfoot, possible Charcot arthropathy versus osteomyelitis. POST-OP DIAGNOSIS: Some evidence of deep abscess and gross examination signs consistent with osteomyelitis. PRIMARY PROCEDURE: Irrigation and debridement and biopsy of talar neck. DESCRIPTION OF PROCEDURE: The patient was taken to the operating room in the bed where the surgery was performed. We made a longitudinal incision in the bed of the previous abscess wound to open up deep fascia around the medial talus , exposing up into the tibiotalar joint with bloody fluid which was sent for culture and sensitivity. I took a wedge shape from the biopsy of the medial talar neck, approximately 2 cm in length and 1 cm of cross section; this was sent to pathology in formalin. We then performed a 3-L pulsatile lavage closing the deep fascial tissues with 0 Vicryl sutures, subcutaneous tissue with 0 Vicryl and Prolene for the skin and a compression dressing applied. [id number]/[facility] #: [id number] [facility]
--- NOTE | 2017-06-26 11:49 | PN ---
Progress Note - Progress Note Date of Service: 06/26/17 SOAP: Subjective: []Patient seen at bedside. He feels well aside from left foot pain. Denies fever , chills, CP or SOB. Objective: [] Vital Signs Temp 98.5 F 06/26/17 07:27 Pulse 85 06/26/17 09:23 Resp 18 06/26/17 09:23 BP 148/45 06/26/17 07:27 Pulse Ox 99 06/26/17 09:23 Intake & Output 06/25/17 06/26/17 06/26/17 18:59 06:59 18:59 Intake Total 1150 2315 240 Output Total 2600 1700 Balance -1450 615 240 Weight 492 lb 9.6 oz Intake: IV Fluids 600 50 LR 600 NS (0.9%) 50 IVPB 265 ABX - VANCOMYCIN 265 Oral 550 2000 240 Output: Urine 2600 1700 Other: # Bowel Movements 1 Estimated Stool Amount Large Small Laboratory Last Values WBC 15.0 10^3/ul (3.5-10.8) H 06/26/17 07:13 RBC 3.33 10^6/ul (4.0-5.4) L 06/26/17 07:13 Hgb 8.7 g/dl (14.0-18.0) L 06/26/17 07:13 Hct 29 % (42-52) L 06/26/17 07:13 MCV 86 fL (80-94) 06/26/17 07:13 MCH 26 pg (27-31) L 06/26/17 07:13 MCHC 31 g/dl (31-36) 06/26/17 07:13 RDW 19 % (10.5-15) H 06/26/17 07:13 Plt Count 545 10^3/ul (150-450) H 06/26/17 07:13 MPV 7 um3 (7.4-10.4) L 06/26/17 07:13 Neut % (Auto) Not Reportable 06/26/17 07:13 Lymph % (Auto) Not Reportable 06/26/17 07:13 [place] % (Auto) Not Reportable 06/26/17 07:13 Eos % (Auto) Not Reportable 06/26/17 07:13 Baso % (Auto) Not Reportable 06/26/17 07:13 Absolute Neuts (auto) 13.0 10^3/ul (1.5-7.7) H 06/26/17 07:13 Absolute Lymphs (auto) Not Reportable 06/26/17 07:13 Absolute Monos (auto) Not Reportable 06/26/17 07:13 Absolute Eos (auto) Not Reportable 06/26/17 07:13 Absolute Basos (auto) Not Reportable 06/26/17 07:13 Absolute Nucleated RBC Not Reportable 06/26/17 07:13 Immature Gran % 3 % (0-9) 06/26/17 07:13 Neutrophils % 84 % (38-83) H 06/26/17 07:13 Band Neutrophils % 1 % (0-8) 06/26/17 07:13 Lymphocytes % 2 % (25-47) L 06/26/17 07:13 Monocytes % 9 % (0-13) 06/26/17 07:13 Eosinophils % 2 % (0-6) 06/26/17 07:13 Basophils % 0 % (0-2) 06/26/17 07:13 Metamyelocytes % 2 % (0-2) 06/26/17 07:13 Nucleated RBC % Not Reportable 06/26/17 07:13 Abs Neuts (Manual) 12.6 10^3/ul (1.5-7.7) H 06/26/17 07:13 Abs Monocytes (Manual) 1.4 10^3/ul (0-0.8) H 06/26/17 07:13 Absolute Eos (Manual) 0.3 10^3/ul (0-0.6) 06/26/17 07:13 Abs Basophils (Manual) 0 10^3/ul (0-0.2) 06/26/17 07:13 Normal RBC Morphology Not Reportable 06/26/17 07:13 Polychromasia 1+ 06/26/17 07:13 Hypochromasia 1+ 06/26/17 07:13 Anisocytosis 1+ 06/26/17 07:13 INR (Anticoag Therapy) 2.00 (0.77-1.02) H 06/20/17 06:06 APTT 38.6 seconds (26.0-36.3) H 06/20/17 06:06 Sodium 132 mmol/L (133-145) L 06/26/17 07:13 Potassium 4.9 mmol/L (3.5-5.0) 06/26/17 07:13 Chloride 97 mmol/L (101-111) L 06/26/17 07:13 Carbon Dioxide 32 mmol/L (22-32) 06/26/17 07:13 Anion Gap 3 mmol/L (2-11) 06/26/17 07:13 BUN 64 mg/dL (6-24) H 06/26/17 07:13 Creatinine 1.15 mg/dL (0.67-1.17) 06/26/17 07:13 Est GFR ( Amer) 85.9 (>60) 06/26/17 07:13 Est GFR (Non-Af Amer) 66.8 (>60) 06/26/17 07:13 BUN/Creatinine Ratio 55.7 (8-20) H 06/26/17 07:13 Glucose 219 mg/dL (70-100) H 06/26/17 07:13 POC Glucose (mg/dL) 246 mg/dL (70-100) H 06/26/17 07:40 Lactic Acid 0.8 mmol/L (0.5-2.0) 06/20/17 06:06 Calcium 9.0 mg/dL (8.6-10.3) 06/26/17 07:13 Magnesium 1.9 mg/dL (1.9-2.7) 06/26/17 07:13 Total Bilirubin 0.60 mg/dL (0.2-1.0) 06/20/17 06:06 AST 34 U/L (13-39) 06/20/17 06:06 ALT 51 U/L (7-52) 06/20/17 06:06 Alkaline Phosphatase 219 U/L (34-104) H 06/20/17 06:06 C-Reactive Protein 142.44 mg/L (< 5.00) H 06/20/17 06:06 Total Protein 6.9 g/dL (6.4-8.9) 06/20/17 06:06 Albumin 2.9 g/dL (3.2-5.2) L 06/20/17 06:06 Globulin 4.0 g/dL (2-4) 06/20/17 06:06 Albumin/Globulin Ratio 0.7 (1-3) L 06/20/17 06:06 Urine Color Yellow 06/20/17 16:16 Urine Appearance Clear 06/20/17 16:16 Urine pH 5.0 (5-9) 06/20/17 16:16 Ur Specific [place] 1.011 (1.010-1.030) 06/20/17 16:16 Urine Protein Negative (Negative) 06/20/17 16:16 Urine Ketones Negative (Negative) 06/20/17 16:16 Urine Blood Negative (Negative) 06/20/17 16:16 Urine Nitrate Negative (Negative) 06/20/17 16:16 Urine Bilirubin Negative (Negative) 06/20/17 16:16 Urine Urobilinogen Negative (Negative) 06/20/17 16:16 Ur Leukocyte Esterase Negative (Negative) 06/20/17 16:16 Urine Glucose Negative (Negative) 06/20/17 16:16 Vancomycin Trough 19.7 mcg/mL 06/24/17 05:28 General: Laying comfortably in bed, no acute distress LLE: Dressing in place. Capillary refill of exposed toes less than 2 seconds. Lacks sensation distally. Calves are supple and nontender without erythema or palpable cords. Assessment: []s/p left foot washout 06/21, 06/25 and bone biopsy 06/25 Plan: []NWB LLE Dressing to remain in place until F/U in [address] Muñoz
--- NOTE | 2017-06-26 16:04 | PN ---
Subjective Date of Service: 06/26/17 Interval History: Patient complains of pain in his left leg improved from yesterday. Complains of baseline SOB. Patient denies CP, diarrhea, constipation, N/V, abdominal pain, dysuria, F/C, or other pain. Patient was found to have an irregular heart rhythm this morning and felt "off" this morning. Refused telemetry monitoring. Family History: Unchanged from Admission Social History: Unchanged from Admission Past Medical History: Unchanged from Admission Objective Active Medications: Acetaminophen (Tylenol Tab*) 650 mg PO Q4H PRN PRN Reason: FEVER/PAIN Last Admin: 06/21/17 21:39 Dose: 650 mg Albuterol (Ventolin 2.5 Mg/3 Ml Neb.Christy*) 2.5 mg INH Q4H PRN PRN Reason: SHORTNESS OF BREATH Last Admin: 06/26/17 09:20 Dose: 2.5 mg Albuterol (Ventolin Hfa Inhaler*) 2 puff INH Q4H PRN PRN Reason: SOB/WHEEZING Last Admin: 06/23/17 16:26 Dose: 2 puff Allopurinol (Zyloprim Tab*) 300 mg PO DAILY [facility] Last Admin: 06/26/17 08:51 Dose: 300 mg Atorvastatin Calcium (Lipitor*) 40 mg PO DAILY [facility] Last Admin: 06/26/17 08:51 Dose: 40 mg Dextrose (D50w Syringe 50 Ml*) 25 gm IV PUSH ONCE PRN PRN Reason: FS < 60 Last Admin: 06/25/17 07:49 Dose: 25 gm Fluticasone Propionate (Flonase Nasal [place] 50mcg*) 2 spray BOTH NARES DAILY PRN PRN Reason: Allergy Symptoms Vancomycin HCl 1,250 mg/ (Sodium Chloride) 250 mls @ 166.667 mls/hr IVPB Q24H [facility] Last Admin: 06/25/17 20:24 Dose: 166.667 mls/hr Insulin Human Isoph/Insulin Regular (Humulin 70/30 (*)) 80 units SUBCUT 0800, 1700 [facility] Last Admin: 06/26/17 08:50 Dose: 80 units Insulin Human Lispro (Humalog*) 10 units SUBCUT AC [facility] Last Admin: 06/26/17 12:11 Dose: 10 unit Levothyroxine Sodium (Synthroid Tab*) 200 mcg PO 0600 [facility] Last Admin: 06/26/17 06:07 Dose: 200 mcg Metolazone (Zaroxolyn Tab*) 5 mg PO DAILY [facility] Last Admin: 06/26/17 08:51 Dose: 5 mg Metoprolol Tartrate (Lopressor Tab*) 25 mg PO BID [facility] Last Admin: 06/26/17 08:51 Dose: 25 mg Mometasone Furoate/Formoterol Fumar (Dulera 200/5 Mdi*) 2 puff INH BID [facility] PRN Reason: Protocol Last Admin: 06/26/17 09:20 Dose: 2 puff Nystatin (Nystatin Cream*) 1 applic TOPICAL BID [facility] Last Admin: 06/26/17 08:51 Dose: Not Given Ondansetron HCl (Zofran Inj*) 4 mg IV Q4H PRN PRN Reason: NAUSEA/VOMITING Oxycodone HCl (Roxycodone Tab*) 5 mg PO Q8H PRN PRN Reason: PAIN Last Admin: 06/22/17 02:11 Dose: 5 mg Oxycodone HCl (Roxycodone Tab*) 10 mg PO Q4H PRN PRN Reason: PAIN - SEVERE Last Admin: 06/26/17 12:10 Dose: 10 mg Pharmacy Consult (Vancomycin Per Pharmacy*) 1 note FOLLOW UP . PRN PRN Reason: PER PROTOCOL Pharmacy Profile Note (Vancomycin Trough Check) 1 note FOLLOW UP 193 ONE Stop: 06/27/17 19:31 Polyethylene Glycol/Electrolytes (Miralax*) 17 gm PO 0800,2100 PRN PRN Reason: nausea Last Admin: 06/22/17 13:48 Dose: 17 gm Sodium Chloride (Sodium Chloride 0.65% Nasal Drops*) 1 drop BOTH NARES Q4H PRN PRN Reason: CONGESTION Spironolactone (Aldactone Tab*) 50 mg PO DAILY [facility] Last Admin: 06/26/17 08:51 Dose: 50 mg Torsemide (Demadex*) 40 mg PO DAILY [facility] Last Admin: 06/26/17 08:51 Dose: 40 mg Vital Signs - 8 hr 06/26/17 06/26/17 06/26/17 08:26 09:23 11:06 Temperature 98.2 F 98.2 F Pulse Rate 89 85 87 Respiratory 17 18 18 Rate Blood Pressure 139/53 147/58 (mmHg) O2 Sat by Pulse 98 99 98 Oximetry 06/26/17 12:10 Temperature Pulse Rate Respiratory 19 Rate Blood Pressure (mmHg) O2 Sat by Pulse Oximetry Oxygen Devices in Use Now: Nasal Cannula Appearance: Patient is a 51yo male who appears older than stated age and is sitting in the bed in [facility]. Eyes: No Scleral Icterus, PERRLA Ears/Nose/Mouth/Throat: NL Teeth, Lips, Gums, Clear Oropharnyx, Mucous Membranes Moist Neck: NL Appearance and Movements; NL JVP, Trachea Midline Respiratory: Symmetrical Chest Expansion and Respiratory Effort, Clear to Auscultation, - - Diminished BS throughout. Cardiovascular: NL Sounds; No Murmurs; No JVD, No Edema, - - Irregularly irregular rhythm. Rate of 72. Abdominal: NL Sounds; No Tenderness; No Distention, No Hepatosplenomegaly, - - Severely obese with non-tender umbilical hernia. Lymphatic: No Cervical Adenopathy Extremities: No Edema, No Clubbing, Cyanosis Skin: No Nodules or Sclerosis, - - Left foot covered in dressing with good distal capillary refil. Neurological: Alert and Oriented x 3, NL Sensation, NL Muscle Strength and Tone , - - CN II-XII intact. Result Diagrams: 06/26/17 07:13 06/26/17 07:13 Microbiology and Other Data: Microbiology 06/21/17 18:15 Anaerobic Culture - Preliminary Wound - Left Leg Skin and Soft Tissue MRSA/MSSA (PCR - Final Mrsa Positive S.aureus Positive Gram Stain - Final Wound Culture - Preliminary Staphylococcus Aureus Assess/Plan/Problems-Billing Assessment: Mr. Anderson is a 51 yo male with a PMH significant for DM, MRSA of left foot, VENTURA , chronic hypoxemic resp failure, HTN, PVD, hypothyroidism, and DVT/PE who presented with left foot pain secondary to left lateral foot abscess and chronic osteomyelitis; he is positive for MRSA bacteremia and MRSA in left foot wound, now s/p I&D and repeat washout with bone biopsy. - Patient Problems (1) Abscess Current Visit: Yes Status: Acute Code(s): L02.91 - CUTANEOUS ABSCESS, UNSPECIFIED SNOMED Code(s): 871783909 Comment: Appreciate ID and Ortho consult. s/p I&D on 06/[address] Muñoz Cleaned abscess and left wound open to drain. Returned to OR Sunday 06/25 for washout and bone biopsy taken Wound culture positive for MRSA Continue vancomycin. NWB on left leg. (2) Osteomyelitis Current Visit: Yes Status: Chronic Code(s): M86.9 - OSTEOMYELITIS, UNSPECIFIED SNOMED Code(s): 27659262 Comment: Appreciate ID and Orthopedic input. Continue vancomycin for a total fo 6 weeks and then reevaluate for need of continued dosing. Bone biopsy taken. (3) Atrial fibrillation Current Visit: Yes Status: Acute Priority: High Code(s): I48.91 - UNSPECIFIED ATRIAL FIBRILLATION SNOMED Code(s): 36087995 Comment: Continue metoprolol; Xarelto resumed. Converted to NSR 06/20, Converted back to atrial fibrillation, rate controlled through the day. Telemetry removed at patient's request. Refused to have it replaced. (4) MRSA bacteremia Current Visit: Yes Status: Acute Code(s): R78.81 - BACTEREMIA SNOMED Code( s): 62822360802185451 Comment: Positive blood cultures from 06/20 and positive wound culture from left leg on . 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 Previously well controlled. Continue current regimen. Will adjust insulin if this persists. (7) VENTURA (obstructive sleep apnea) Current Visit: Yes Status: Chronic Code(s): G47.33 - OBSTRUCTIVE SLEEP APNEA (ADULT) (PEDIATRIC) SNOMED Code(s): 18681517 Comment: Continue CPAP (8) DVT prophylaxis Current Visit: Yes Status: Acute Code(s): RFY3605 - SNOMED Code(s): 838674223 Comment: Xarelto (9) Full code status Current Visit: No Status: Acute Priority: Medium Onset Date: 06/10/14 Code(s): Z78.9 - OTHER SPECIFIED HEALTH STATUS SNOMED Code(s): 194600139 Status and Disposition: Inpatient admission. Anticipate extended LOS due to MRSA bacteremia and extensive infection. Patient to be discharged to [facility] for antibiotics if they accept.
[2017-06-26] MEDS: Rivaroxaban TAB(*) 20 MG TAB PO SCH (17:00)
[2017-06-26] MEDS: Vancomycin(*) 1,250 MG IV IVPB SCH ×2 (20:35)
[2017-06-27] MEDS: Levothyroxine TAB* 100 MCG TAB PO SCH (05:41)
[2017-06-27] MEDS: Albuterol HFA INHALER* 8 gm MDI INH PRN (07:45)
[2017-06-27] MEDS: Mometasone/Formoter 200/5 MDI INH SCH ×2 (07:45→20:01)
[2017-06-27] MEDS: Torsemide TAB* 20 MG PO SCH (09:01)
[2017-06-27] MEDS: Insulin LISPRO* 1 UNITS UNIT SUBCUT SCH ×3 (09:01→17:51)
[2017-06-27] MEDS: Allopurinol TAB* 300 MG PO SCH (09:01)
[2017-06-27] MEDS: Spironolactone TAB* 25 MG PO SCH (09:01)
[2017-06-27] MEDS: Metoprolol Tartrate TAB* 25 MG PO SCH ×2 (09:01→20:44)
[2017-06-27] MEDS: Metolazone TAB* 5 MG PO SCH (09:01)
[2017-06-27] MEDS: Atorvastatin* 40 MG TAB PO SCH (09:01)
[2017-06-27] MEDS: Rivaroxaban TAB(*) 20 MG TAB PO SCH (09:01)
[2017-06-27] MEDS: Insulin ISOPH/REG 70/30 (*) 1 UNITS UNIT SUBCUT SCH ×2 (09:01→17:50)
[2017-06-27] MEDS: Nystatin CREAM* 15 GM TUBE TOPICAL SCH ×2 (09:05→21:45)
[2017-06-27 09:13] LABS: Hematocrit 29 % (42-52); Hemoglobin 8.7 g/dl (14.0-18.0); Mean Corpuscular HGB Conc 30 g/dl (31-36); Mean Corpuscular Hemoglobin 26 pg (27-31); Mean Corpuscular Volume 85 fL (80-94); Mean Platelet Volume 7 um3 (7.4-10.4); Platelet Count 547 10^3/ul (150-450); Red Blood Count 3.36 10^6/ul (4.0-5.4); Red Cell Distribution Width 18 % (10.5-15); White Blood Count 14.2 10^3/ul (3.5-10.8)
--- NOTE | 2017-06-27 09:18 | PN ---
Progress Note - Progress Note Date of Service: 06/27/17 SOAP: Subjective: []Patient seen at bedside. Left foot pain has resolved and patient is comfortable today. Denies fever or chills. Objective: [] Vital Signs Temp 97.0 F 06/27/17 08:30 Pulse 79 06/27/17 08:13 Resp 20 06/27/17 08:13 BP 131/61 06/27/17 08:13 Pulse Ox 100 06/27/17 08:13 Intake & Output 06/26/17 06/27/17 06/27/17 18:59 06:59 18:59 Intake Total 680 1710 Output Total 625 1100 Balance 55 610 Weight 499 lb 9.6 oz Intake: IV Fluids 20 NS (0.9%) 20 IVPB 250 ABX - VANCOMYCIN 250 Oral 680 1440 Output: Urine 625 1100 Other: # Bowel Movements 0 # Voids 1 1 Laboratory Last Values WBC 14.2 10^3/ul (3.5-10.8) H 06/27/17 08:35 RBC 3.36 10^6/ul (4.0-5.4) L 06/27/17 08:35 Hgb 8.7 g/dl (14.0-18.0) L 06/27/17 08:35 Hct 29 % (42-52) L 06/27/17 08:35 MCV 85 fL (80-94) 06/27/17 08:35 MCH 26 pg (27-31) L 06/27/17 08:35 MCHC 30 g/dl (31-36) L 06/27/17 08:35 RDW 18 % (10.5-15) H 06/27/17 08:35 Plt Count 547 10^3/ul (150-450) H 06/27/17 08:35 MPV 7 um3 (7.4-10.4) L 06/27/17 08:35 Neut % (Auto) Not Reportable 06/26/17 07:13 Lymph % (Auto) Not Reportable 06/26/17 07:13 [place] % (Auto) Not Reportable 06/26/17 07:13 Eos % (Auto) Not Reportable 06/26/17 07:13 Baso % (Auto) Not Reportable 06/26/17 07:13 Absolute Neuts (auto) 13.0 10^3/ul (1.5-7.7) H 06/26/17 07:13 Absolute Lymphs (auto) Not Reportable 06/26/17 07:13 Absolute Monos (auto) Not Reportable 06/26/17 07:13 Absolute Eos (auto) Not Reportable 06/26/17 07:13 Absolute Basos (auto) Not Reportable 06/26/17 07:13 Absolute Nucleated RBC Not Reportable 06/26/17 07:13 Immature Gran % 3 % (0-9) 06/26/17 07:13 Neutrophils % 84 % (38-83) H 06/26/17 07:13 Band Neutrophils % 1 % (0-8) 06/26/17 07:13 Lymphocytes % 2 % (25-47) L 06/26/17 07:13 Monocytes % 9 % (0-13) 06/26/17 07:13 Eosinophils % 2 % (0-6) 06/26/17 07:13 Basophils % 0 % (0-2) 06/26/17 07:13 Metamyelocytes % 2 % (0-2) 06/26/17 07:13 Nucleated RBC % Not Reportable 06/26/17 07:13 Abs Neuts (Manual) 12.6 10^3/ul (1.5-7.7) H 06/26/17 07:13 Abs Monocytes (Manual) 1.4 10^3/ul (0-0.8) H 06/26/17 07:13 Absolute Eos (Manual) 0.3 10^3/ul (0-0.6) 06/26/17 07:13 Abs Basophils (Manual) 0 10^3/ul (0-0.2) 06/26/17 07:13 Normal RBC Morphology Not Reportable 06/26/17 07:13 Polychromasia 1+ 06/26/17 07:13 Hypochromasia 1+ 06/26/17 07:13 Anisocytosis 1+ 06/26/17 07:13 INR (Anticoag Therapy) 2.00 (0.77-1.02) H 06/20/17 06:06 APTT 38.6 seconds (26.0-36.3) H 06/20/17 06:06 Sodium 132 mmol/L (133-145) L 06/26/17 07:13 Potassium 4.9 mmol/L (3.5-5.0) 06/26/17 07:13 Chloride 97 mmol/L (101-111) L 06/26/17 07:13 Carbon Dioxide 32 mmol/L (22-32) 06/26/17 07:13 Anion Gap 3 mmol/L (2-11) 06/26/17 07:13 BUN 64 mg/dL (6-24) H 06/26/17 07:13 Creatinine 1.15 mg/dL (0.67-1.17) 06/26/17 07:13 Est GFR ( Amer) 85.9 (>60) 06/26/17 07:13 Est GFR (Non-Af Amer) 66.8 (>60) 06/26/17 07:13 BUN/Creatinine Ratio 55.7 (8-20) H 06/26/17 07:13 Glucose 219 mg/dL (70-100) H 06/26/17 07:13 POC Glucose (mg/dL) 112 mg/dL (70-100) H 06/27/17 08:04 Lactic Acid 0.8 mmol/L (0.5-2.0) 06/20/17 06:06 Calcium 9.0 mg/dL (8.6-10.3) 06/26/17 07:13 Magnesium 1.9 mg/dL (1.9-2.7) 06/26/17 07:13 Total Bilirubin 0.60 mg/dL (0.2-1.0) 06/20/17 06:06 AST 34 U/L (13-39) 06/20/17 06:06 ALT 51 U/L (7-52) 06/20/17 06:06 Alkaline Phosphatase 219 U/L (34-104) H 06/20/17 06:06 C-Reactive Protein 142.44 mg/L (< 5.00) H 06/20/17 06:06 Total Protein 6.9 g/dL (6.4-8.9) 06/20/17 06:06 Albumin 2.9 g/dL (3.2-5.2) L 06/20/17 06:06 Globulin 4.0 g/dL (2-4) 06/20/17 06:06 Albumin/Globulin Ratio 0.7 (1-3) L 06/20/17 06:06 Urine Color Yellow 02/14/18 16:16 Urine Appearance Clear 06/20/17 16:16 Urine pH 5.0 (5-9) 06/20/17 16:16 Ur Specific [place] 1.011 (1.010-1.030) 06/20/17 16:16 Urine Protein Negative (Negative) 06/20/17 16:16 Urine Ketones Negative (Negative) 06/20/17 16:16 Urine Blood Negative (Negative) 06/20/17 16:16 Urine Nitrate Negative (Negative) 06/20/17 16:16 Urine Bilirubin Negative (Negative) 06/20/17 16:16 Urine Urobilinogen Negative (Negative) 06/20/17 16:16 Ur Leukocyte Esterase Negative (Negative) 06/20/17 16:16 Urine Glucose Negative (Negative) 06/20/17 16:16 Vancomycin Trough 19.7 mcg/mL 06/24/17 05:28 General: Laying comfortably in bed, no acute distress LLE: Dressing in place. Capillary refill of exposed toes less than 2 seconds. Lacks sensation distally. Able to wiggle exposed toes. Calves are supple and nontender without erythema or edema. Assessment: []s/p left foot washout 06/21, 06/25 and bone biopsy 06/25 Plan: []NWB LLE Continue to follow cultures Dressing to remain in place until F/U in [address] Muñoz Has restarted home xarelto May d/c when medically appropriate.
[2017-06-27 09:20] LABS: EGFR Non-African American 56.5 (>60)
[2017-06-27 10:01] LABS: Monocytes % 7 % (0-13)
[2017-06-27] MEDS: Albuterol 2.5 MG/3 ML NEB.SOL* (0.083%) INH PRN (12:37)
--- NOTE | 2017-06-27 16:36 | PN ---
PROGRESS NOTE: DATE OF SERVICE: 06/27/17 HISTORY: Mr. Anderson is two days out from debridement of his left medial hindfoot. The bone pathology is pending and will take a while for osteomyelitis workup. However, the cultures at this point were no growth; and if this continues another day or so, he could be transferred out of the hospital if stable, otherwise pending the results of his bone biopsy. He should have some ongoing antibiotic coverage for the MRSA. [id number]/[facility] #: [id number] [facility] HOS[facility]ITALKay
--- NOTE | 2017-06-27 16:48 | PN ---
Subjective Date of Service: 06/27/17 Interval History: Patient complains of stable pain in foot and stable shortness of breath. Patient also has concerns about a fungal infection of his groin. Patient also complains of constipation. Patient denies F/C, N/V abdominal pain, diarrhea, dysuria, CP, or other pain. Patient states that he does not want to go to [facility] but would be willing to consider other local facilities. Family History: Unchanged from Admission Social History: Unchanged from Admission Past Medical History: Unchanged from Admission Objective Active Medications: Acetaminophen (Tylenol Tab*) 650 mg PO Q4H PRN PRN Reason: FEVER/PAIN Last Admin: 06/21/17 21:39 Dose: 650 mg Albuterol (Ventolin 2.5 Mg/3 Ml Neb.Christy*) 2.5 mg INH Q4H PRN PRN Reason: SHORTNESS OF BREATH Last Admin: 06/27/17 12:37 Dose: 2.5 mg Albuterol (Ventolin Hfa Inhaler*) 2 puff INH Q4H PRN PRN Reason: SOB/WHEEZING Last Admin: 06/27/17 07:45 Dose: 2 puff Allopurinol (Zyloprim Tab*) 300 mg PO DAILY [facility] Last Admin: 06/27/17 09:01 Dose: 300 mg Atorvastatin Calcium (Lipitor*) 40 mg PO DAILY [facility] Last Admin: 06/27/17 09:01 Dose: 40 mg Dextrose (D50w Syringe 50 Ml*) 25 gm IV PUSH ONCE PRN PRN Reason: FS < 60 Last Admin: 06/25/17 07:49 Dose: 25 gm Fluticasone Propionate (Flonase Nasal [place] 50mcg*) 2 spray BOTH NARES DAILY PRN PRN Reason: Allergy Symptoms Vancomycin HCl 1,250 mg/ (Sodium Chloride) 250 mls @ 166.667 mls/hr IVPB Q24H [facility] Last Admin: 06/26/17 20:35 Dose: 166.667 mls/hr Insulin Human Isoph/Insulin Regular (Humulin 70/30 (*)) 80 units SUBCUT 0800, 1700 [facility] Last Admin: 06/27/17 09:01 Dose: 80 units Insulin Human Lispro (Humalog*) 10 units SUBCUT AC [facility] Last Admin: 06/27/17 12:59 Dose: 10 unit Levothyroxine Sodium (Synthroid Tab*) 200 mcg PO 0600 [facility] Last Admin: 06/27/17 05:41 Dose: 200 mcg Metolazone (Zaroxolyn Tab*) 5 mg PO DAILY [facility] Last Admin: 06/27/17 09:01 Dose: 5 mg Metoprolol Tartrate (Lopressor Tab*) 25 mg PO BID [facility] Last Admin: 06/27/17 09:01 Dose: 25 mg Mometasone Furoate/Formoterol Fumar (Dulera 200/5 Mdi*) 2 puff INH BID [facility] PRN Reason: Protocol Last Admin: 06/27/17 07:45 Dose: 2 puff Nystatin (Nystatin Cream*) 1 applic TOPICAL BID [facility] Last Admin: 06/27/17 09:05 Dose: 1 applic Ondansetron HCl (Zofran Inj*) 4 mg IV Q4H PRN PRN Reason: NAUSEA/VOMITING Oxycodone HCl (Roxycodone Tab*) 10 mg PO Q4H PRN PRN Reason: PAIN - SEVERE Last Admin: 06/26/17 23:58 Dose: 10 mg Pharmacy Consult (Vancomycin Per Pharmacy*) 1 note FOLLOW UP . PRN PRN Reason: PER PROTOCOL Pharmacy Profile Note (Vancomycin Trough Check) 1 note FOLLOW UP 1930 ONE Stop: 06/27/17 19:31 Polyethylene Glycol/Electrolytes (Miralax*) 17 gm PO 0800,2100 PRN PRN Reason: nausea Last Admin: 06/22/17 13:48 Dose: 17 gm Rivaroxaban (Xarelto(*)) 20 mg PO DAILY [facility] Last Admin: 06/27/17 09:01 Dose: 20 mg Sodium Chloride (Sodium Chloride 0.65% Nasal Drops*) 1 drop BOTH NARES Q4H PRN PRN Reason: CONGESTION Spironolactone (Aldactone Tab*) 50 mg PO DAILY [facility] Last Admin: 06/27/17 09:01 Dose: 50 mg Torsemide (Demadex*) 40 mg PO DAILY [facility] Last Admin: 06/27/17 09:01 Dose: 40 mg Vital Signs - 8 hr 06/27/17 06/27/17 11:17 12:37 Temperature 99.1 F Pulse Rate 84 74 Respiratory 17 16 Rate Blood Pressure 146/62 (mmHg) O2 Sat by Pulse 96 99 Oximetry Oxygen Devices in Use Now: Nasal Cannula Appearance: Patient is a 51yo male who appears older than stated age and is sitting in the bed in NAD. Eyes: No Scleral Icterus, PERRLA Ears/Nose/Mouth/Throat: NL Teeth, Lips, Gums, Clear Oropharnyx, Mucous Membranes Moist Neck: NL Appearance and Movements; NL JVP, Trachea Midline Respiratory: Symmetrical Chest Expansion and Respiratory Effort, Clear to Auscultation, - - Diminished Cardiovascular: NL Sounds; No Murmurs; No JVD, RRR, No Edema Abdominal: NL Sounds; No Tenderness; No Distention, No Hepatosplenomegaly, - - Severely obese. Exam limited. Abdominal wall hernia. Lymphatic: No Cervical Adenopathy Extremities: No Edema, No Clubbing, Cyanosis Skin: No Nodules or Sclerosis, - - Left foot covered by dressing with good distal perfusion. Neurological: Alert and Oriented x 3, NL Sensation, NL Muscle Strength and Tone , - - CN II-XII intact. Result Diagrams: 06/27/17 08:35 06/27/17 08:35 Microbiology and Other Data: Microbiology 06/21/17 18:15 Anaerobic Culture - Preliminary Wound - Left Leg Skin and Soft Tissue MRSA/MSSA (PCR - Final Mrsa Positive S.aureus Positive Gram Stain - Final Wound Culture - Preliminary Staphylococcus Aureus Assess/Plan/Problems-Billing Assessment: Mr. Anderson is a 51 yo male with a PMH significant for DM, MRSA of left foot, VENTURA , chronic hypoxemic resp failure, HTN, PVD, hypothyroidism, and DVT/PE who presented with left foot pain secondary to left lateral foot abscess and chronic osteomyelitis; he is positive for MRSA bacteremia and MRSA in left foot wound, now s/p I&D and repeat washout with bone biopsy. - Patient Problems (1) Abscess Current Visit: Yes Status: Acute Code(s): L02.91 - CUTANEOUS ABSCESS, UNSPECIFIED SNOMED Code(s): 894574783 Comment: Appreciate ID and Ortho consult. s/p I&D on 06/[address] Muñoz Cleaned abscess and left wound open to drain. Returned to OR Sunday 06/25 for washout and bone biopsy taken Wound culture positive for MRSA Continue vancomycin for 6 weeks to begin. Midline Placed. PICC pending negative blood cultures. NWB on left leg. (2) Osteomyelitis Current Visit: Yes Status: Chronic Code(s): M86.9 - OSTEOMYELITIS, UNSPECIFIED SNOMED Code(s): 68247612 Comment: Appreciate ID and Orthopedic input. Continue vancomycin for a total fo 6 weeks and then reevaluate for need of continued dosing. Bone biopsy taken. Repeat blood cultures pending. (3) Atrial fibrillation Current Visit: Yes Status: Acute Priority: High Code(s): I48.91 - UNSPECIFIED ATRIAL FIBRILLATION SNOMED Code(s): 82649392 Comment: Continue metoprolol; Xarelto resumed. Converted to NSR 06/20, Converted back to atrial fibrillation, rate controlled through the day. Telemetry removed at patient's request. Refused to have it replaced. NSR today. (4) MRSA bacteremia Current Visit: Yes Status: Acute Code(s): R78.81 - BACTEREMIA SNOMED Code( s): 89439951441935718 Comment: Positive blood cultures from 06/20 and positive wound culture from left leg on . Repeat BC pending. Continue vancomycin Appreciate ID input (5) Pulmonary embolism Current Visit: Yes Status: Acute Code(s): I26.99 - OTHER PULMONARY EMBOLISM WITHOUT ACUTE COR PULMONALE SNOMED Code(s): 12090881 Comment: History of PE Xarelto resumed (6) Insulin dependent diabetes mellitus Current Visit: Yes Status: Chronic Code(s): E11.9 - TYPE 2 DIABETES MELLITUS WITHOUT COMPLICATIONS; Z79.4 - [facility] (CURRENT) USE OF INSULIN SNOMED Code(s): 78884347 Comment: Better control today. Continue current regimen. (7) VENTURA (obstructive sleep apnea) Current Visit: Yes Status: Chronic Code(s): G47.33 - OBSTRUCTIVE SLEEP APNEA (ADULT) (PEDIATRIC) SNOMED Code(s): 12997580 Comment: Continue CPAP (8) DVT prophylaxis Current Visit: Yes Status: Acute Code(s): OPI3244 - SNOMED Code(s): 672595438 Comment: Xarelto (9) Full code status Current Visit: No Status: Acute Priority: Medium Onset Date: 06/10/14 Code(s): Z78.9 - OTHER SPECIFIED HEALTH STATUS SNOMED Code(s): 289732425 Status and Disposition: Inpatient admission. Anticipate extended LOS due to MRSA bacteremia and extensive infection. Discharge to facility when available.
[2017-06-27] MEDS: oxyCODONE TAB* 5 MG TAB PO PRN (18:42)
[2017-06-27] MEDS ORDERED: Vancomycin Trough Check NOTE FOLLOW UP ONE (19:30)
[2017-06-27] MEDS: Vancomycin(*) 1,250 MG IV IVPB SCH ×2 (20:45)
[2017-06-28 05:21] LABS: Hematocrit 29 % (42-52); Hemoglobin 8.9 g/dl (14.0-18.0); Mean Corpuscular HGB Conc 31 g/dl (31-36); Mean Corpuscular Hemoglobin 26 pg (27-31); Mean Corpuscular Volume 86 fL (80-94); Mean Platelet Volume 6 um3 (7.4-10.4); Platelet Count 517 10^3/ul (150-450); Red Blood Count 3.39 10^6/ul (4.0-5.4); Red Cell Distribution Width 19 % (10.5-15); White Blood Count 13.6 10^3/ul (3.5-10.8)
[2017-06-28 05:35] LABS: EGFR Non-African American 62.4 (>60)
[2017-06-28 05:48] LABS: ABS Basophils 0.1 10^3/ul (0-0.2); ABS Eosinophils 0.6 10^3/ul (0-0.6); ABS Lymphocytes 0.7 10^3/ul (1.0-4.8); ABS Monocytes 0.8 10^3/ul (0-0.8); ABS Neutrophils 11.5 10^3/ul (1.5-7.7); ABS Nucleated RBC 0.1 10^3/ul; Eosinophil % 4.1 % (0-6); Lymphocyte % 5.1 % (25-47); Nucleated Red Blood Cells % 0.4
[2017-06-28] MEDS: Levothyroxine TAB* 100 MCG TAB PO SCH (06:16)
[2017-06-28] MEDS: oxyCODONE TAB* 5 MG TAB PO PRN ×2 (06:45→14:24)
[2017-06-28] MEDS: Mometasone/Formoter 200/5 MDI INH SCH ×2 (08:29→19:46)
[2017-06-28] MEDS: Metoprolol Tartrate TAB* 25 MG PO SCH ×2 (08:54→20:15)
[2017-06-28] MEDS: Nystatin CREAM* 15 GM TUBE TOPICAL SCH ×2 (08:55→20:15)
[2017-06-28] MEDS: Atorvastatin* 40 MG TAB PO SCH (08:55)
[2017-06-28] MEDS: Allopurinol TAB* 300 MG PO SCH (08:55)
[2017-06-28] MEDS: Metolazone TAB* 5 MG PO SCH (08:55)
[2017-06-28] MEDS: Rivaroxaban TAB(*) 20 MG TAB PO SCH (08:55)
[2017-06-28] MEDS: Torsemide TAB* 20 MG PO SCH (08:57)
[2017-06-28] MEDS: Spironolactone TAB* 25 MG PO SCH (08:58)
[2017-06-28] MEDS: Insulin LISPRO* 1 UNITS UNIT SUBCUT SCH ×3 (08:58→17:43)
[2017-06-28] MEDS: Insulin ISOPH/REG 70/30 (*) 1 UNITS UNIT SUBCUT SCH ×2 (09:05→17:44)
--- NOTE | 2017-06-28 09:39 | PN ---
Progress Note - Progress Note Date of Service: 06/28/17 SOAP: Subjective: []Patient seen at bedside with present. He denies LLE pain, CP, SOB, dizziness. Objective: [] Vital Signs Temp 98.4 F 06/28/17 08:34 Pulse 91 06/28/17 08:34 Resp 18 06/28/17 09:07 BP 146/31 06/28/17 08:34 Pulse Ox 98 06/28/17 08:34 Intake & Output 06/27/17 06/28/17 06/28/17 18:59 06:59 18:59 Intake Total 1950 400 470 Output Total 2350 1650 Balance -400 -1250 470 Intake: Oral 1950 400 470 Output: Urine 2350 1650 Other: Estimated Void Medium Medium # Bowel Movements 1 0 Estimated Stool Amount Large # Voids 2 3 Laboratory Last Values WBC 13.6 10^3/ul (3.5-10.8) H 06/28/17 05:13 RBC 3.39 10^6/ul (4.0-5.4) L 06/28/17 05:13 Hgb 8.9 g/dl (14.0-18.0) L 06/28/17 05:13 Hct 29 % (42-52) L 06/28/17 05:13 MCV 86 fL (80-94) 06/28/17 05:13 MCH 26 pg (27-31) L 06/28/17 05:13 MCHC 31 g/dl (31-36) 06/28/17 05:13 RDW 19 % (10.5-15) H 06/28/17 05:13 Plt Count 517 10^3/ul (150-450) H 06/28/17 05:13 MPV 6 um3 (7.4-10.4) L 06/28/17 05:13 Neut % (Auto) 84.3 % (38-83) H 06/28/17 05:13 Lymph % (Auto) 5.1 % (25-47) L 06/28/17 05:13 [place] % (Auto) 6.0 % (1-9) 06/28/17 05:13 Eos % (Auto) 4.1 % (0-6) 06/28/17 05:13 Baso % (Auto) 0.5 % (0-2) 06/28/17 05:13 Absolute Neuts (auto) 11.5 10^3/ul (1.5-7.7) H 06/28/17 05:13 Absolute Lymphs (auto) 0.7 10^3/ul (1.0-4.8) L 06/28/17 05:13 Absolute Monos (auto) 0.8 10^3/ul (0-0.8) 06/28/17 05:13 Absolute Eos (auto) 0.6 10^3/ul (0-0.6) 06/28/17 05:13 Absolute Basos (auto) 0.1 10^3/ul (0-0.2) 06/28/17 05:13 Absolute Nucleated RBC 0.1 10^3/ul 06/28/17 05:13 Immature Gran % 4 % (0-9) 06/27/17 08:35 Neutrophils % 80 % (38-83) 06/27/17 08:35 Band Neutrophils % 1 % (0-8) 06/26/17 07:13 Lymphocytes % 3 % (25-47) L 06/27/17 08:35 Monocytes % 7 % (0-13) 06/27/17 08:35 Eosinophils % 5 % (0-6) 06/27/17 08:35 Basophils % 1 % (0-2) 06/27/17 08:35 Metamyelocytes % 2 % (0-2) 06/27/17 08:35 Myelocytes % 2 % (0-1) H 06/27/17 08:35 Nucleated RBC % 0.4 06/28/17 05:13 Abs Neuts (Manual) 11.4 10^3/ul (1.5-7.7) H 06/27/17 08:35 Abs Monocytes (Manual) 1.0 10^3/ul (0-0.8) H 06/27/17 08:35 Absolute Eos (Manual) 0.7 10^3/ul (0-0.6) H 06/27/17 08:35 Abs Basophils (Manual) 0.1 10^3/ul (0-0.2) 06/27/17 08:35 Normal RBC Morphology Not Reportable 06/27/17 08:35 Polychromasia 1+ 06/26/17 07:13 Hypochromasia 1+ 06/27/17 08:35 Basophilic Stippling 1+ 06/27/17 08:35 Anisocytosis 1+ 06/26/17 07:13 INR (Anticoag Therapy) 2.00 (0.77-1.02) H 06/20/17 06:06 APTT 38.6 seconds (26.0-36.3) H 06/20/17 06:06 Sodium 133 mmol/L (133-145) 06/28/17 05:13 Potassium 4.8 mmol/L (3.5-5.0) 06/28/17 05:13 Chloride 95 mmol/L (101-111) L 06/28/17 05:13 Carbon Dioxide 35 mmol/L (22-32) H 06/28/17 05:13 Anion Gap 3 mmol/L (2-11) 06/28/17 05:13 BUN 69 mg/dL (6-24) H 06/28/17 05:13 Creatinine 1.22 mg/dL (0.67-1.17) H 06/28/17 05:13 Est GFR ( Amer) 80.2 (>60) 06/28/17 05:13 Est GFR (Non-Af Amer) 62.4 (>60) 06/28/17 05:13 BUN/Creatinine Ratio 56.6 (8-20) H 06/28/17 05:13 Glucose 75 mg/dL (70-100) 06/28/17 05:13 POC Glucose (mg/dL) 93 mg/dL (70-100) 06/28/17 07:19 Lactic Acid 0.8 mmol/L (0.5-2.0) 06/20/17 06:06 Calcium 9.2 mg/dL (8.6-10.3) 06/28/17 05:13 Magnesium 1.9 mg/dL (1.9-2.7) 06/27/17 08:35 Total Bilirubin 0.60 mg/dL (0.2-1.0) 06/20/17 06:06 AST 34 U/L (13-39) 06/20/17 06:06 ALT 51 U/L (7-52) 06/20/17 06:06 Alkaline Phosphatase 219 U/L (34-104) H 06/20/17 06:06 C-Reactive Protein 71.55 mg/L (< 5.00) H 06/27/17 08:35 Total Protein 6.9 g/dL (6.4-8.9) 06/20/17 06:06 Albumin 2.9 g/dL (3.2-5.2) L 06/20/17 06:06 Globulin 4.0 g/dL (2-4) 06/20/17 06:06 Albumin/Globulin Ratio 0.7 (1-3) L 06/20/17 06:06 Urine Color Yellow 06/20/17 16:16 Urine Appearance Clear 06/20/17 16:16 Urine pH 5.0 (5-9) 06/20/17 16:16 Ur Specific [place] 1.011 (1.010-1.030) 06/20/17 16:16 Urine Protein Negative (Negative) 06/20/17 16:16 Urine Ketones Negative (Negative) 06/20/17 16:16 Urine Blood Negative (Negative) 06/20/17 16:16 Urine Nitrate Negative (Negative) 06/20/17 16:16 Urine Bilirubin Negative (Negative) 06/20/17 16:16 Urine Urobilinogen Negative (Negative) 06/20/17 16:16 Ur Leukocyte Esterase Negative (Negative) 06/20/17 16:16 Urine Glucose Negative (Negative) 06/20/17 16:16 Vancomycin Trough 15.4 mcg/mL 06/27/17 19:10 General: Laying comfortably in bed, no acute distress LLE: Dressing in place. Capillary refill of exposed toes less than 2 seconds. Lacks sensation distally. Able to wiggle exposed toes. Calves are supple and nontender without erythema or edema. Assessment: []s/p left foot washout 06/21, 06/25 and bone biopsy 06/25 Plan: []NWB LLE Dressing to remain in place until F/U in [address] Muñoz Continue home xarelto []06/25 wound cultures negative thus far, if still negative in another day may D/ C if medically appropriate on abx to cover MRSA. Bone pathology not yet back.
[2017-06-28] MEDS ORDERED: Al Hydrox/Mg Hydrox/Simet LIQ* 30 ML UDC PO PRN (13:29)
--- NOTE | 2017-06-28 13:35 | PN ---
Subjective Date of Service: 06/28/17 Interval History: Patient complains only of stable pain in foot which is well controlled and abdominal discomfort which is intermittent without nausea. Patient had one episode of non-bloody diarrhea today. Patient denies F/C, N/V, CP, SOB, dysuria , or other pain. Patient amenable to transfer for continued antibiotics at [facility] with tentative discharge for tomorrow. Family History: Unchanged from Admission Social History: Unchanged from Admission Past Medical History: Unchanged from Admission Objective Active Medications: Acetaminophen (Tylenol Tab*) 650 mg PO Q4H PRN PRN Reason: FEVER/PAIN Last Admin: 06/21/17 21:39 Dose: 650 mg Albuterol (Ventolin 2.5 Mg/3 Ml Neb.Christy*) 2.5 mg INH Q4H PRN PRN Reason: SHORTNESS OF BREATH Last Admin: 06/27/17 12:37 Dose: 2.5 mg Albuterol (Ventolin Hfa Inhaler*) 2 puff INH Q4H PRN PRN Reason: SOB/WHEEZING Last Admin: 06/27/17 07:45 Dose: 2 puff Allopurinol (Zyloprim Tab*) 300 mg PO DAILY [facility] Last Admin: 06/28/17 08:55 Dose: 300 mg Atorvastatin Calcium (Lipitor*) 40 mg PO DAILY [facility] Last Admin: 06/28/17 08:55 Dose: 40 mg Dextrose (D50w Syringe 50 Ml*) 25 gm IV PUSH ONCE PRN PRN Reason: FS < 60 Last Admin: 06/25/17 07:49 Dose: 25 gm Fluticasone Propionate (Flonase Nasal [place] 50mcg*) 2 spray BOTH NARES DAILY PRN PRN Reason: Allergy Symptoms Vancomycin HCl 1,250 mg/ (Sodium Chloride) 250 mls @ 166.667 mls/hr IVPB Q24H [facility] Last Admin: 06/27/17 20:45 Dose: 166.667 mls/hr Insulin Human Isoph/Insulin Regular (Humulin 70/30 (*)) 80 units SUBCUT 0800, 1700 [facility] Last Admin: 06/28/17 09:05 Dose: 80 units Insulin Human Lispro (Humalog*) 10 units SUBCUT AC [facility] Last Admin: 06/28/17 12:40 Dose: 10 unit Levothyroxine Sodium (Synthroid Tab*) 200 mcg PO 0600 [facility] Last Admin: 06/28/17 06:16 Dose: 200 mcg Metolazone (Zaroxolyn Tab*) 5 mg PO DAILY [facility] Last Admin: 06/28/17 08:55 Dose: 5 mg Metoprolol Tartrate (Lopressor Tab*) 25 mg PO BID [facility] Last Admin: 06/28/17 08:54 Dose: 25 mg Mometasone Furoate/Formoterol Fumar (Dulera 200/5 Mdi*) 2 puff INH BID [facility] PRN Reason: Protocol Last Admin: 06/28/17 08:29 Dose: 2 puff Nystatin (Nystatin Cream*) 1 applic TOPICAL BID [facility] Last Admin: 06/28/17 08:55 Dose: 1 applic Ondansetron HCl (Zofran Inj*) 4 mg IV Q4H PRN PRN Reason: NAUSEA/VOMITING Oxycodone HCl (Roxycodone Tab*) 10 mg PO Q4H PRN PRN Reason: PAIN - SEVERE Last Admin: 06/28/17 06:45 Dose: 10 mg Pharmacy Consult (Vancomycin Per Pharmacy*) 1 note FOLLOW UP . PRN PRN Reason: PER PROTOCOL Polyethylene Glycol/Electrolytes (Miralax*) 17 gm PO 0800,2100 PRN PRN Reason: nausea Last Admin: 06/22/17 13:48 Dose: 17 gm Rivaroxaban (Xarelto(*)) 20 mg PO DAILY [facility] Last Admin: 06/28/17 08:55 Dose: 20 mg Sodium Chloride (Sodium Chloride 0.65% Nasal Drops*) 1 drop BOTH NARES Q4H PRN PRN Reason: CONGESTION Spironolactone (Aldactone Tab*) 50 mg PO DAILY [facility] Last Admin: 06/28/17 08:58 Dose: 50 mg Torsemide (Demadex*) 40 mg PO DAILY [facility] Last Admin: 06/28/17 08:57 Dose: Not Given Vital Signs - 8 hr 06/28/17 06/28/17 06/28/17 06:45 07:46 08:00 Temperature Pulse Rate Respiratory 20 20 Rate Blood Pressure (mmHg) O2 Sat by Pulse 98 Oximetry 06/28/17 06/28/17 08:34 09:07 Temperature 98.4 F Pulse Rate 91 Respiratory 16 18 Rate Blood Pressure 146/31 (mmHg) O2 Sat by Pulse 98 Oximetry Oxygen Devices in Use Now: Nasal Cannula Appearance: Patient is a severely morbidly obese male who appears older than stated age and is sitting in the bed in NAD. Eyes: No Scleral Icterus, PERRLA Ears/Nose/Mouth/Throat: NL Teeth, Lips, Gums, Clear Oropharnyx, Mucous Membranes Moist Neck: NL Appearance and Movements; NL JVP, Trachea Midline Respiratory: Symmetrical Chest Expansion and Respiratory Effort, Clear to Auscultation Cardiovascular: NL Sounds; No Murmurs; No JVD, RRR, No Edema, - - Pulses 2+ in B /L LE. Good capillary refill distal to cast. Abdominal: No Hepatosplenomegaly, - - Minor tenderness to deep palpation. No rebound or guarding. Ventral hernia. Severely obese Lymphatic: No Cervical Adenopathy Extremities: No Edema, No Clubbing, Cyanosis Skin: No Nodules or Sclerosis, - - Small open area at the top of the gluteal cleft. Stable from previous exam. Neurological: Alert and Oriented x 3, NL Muscle Strength and Tone, - - CN II-XII Result Diagrams: 06/28/17 05:13 06/28/17 05:13 Microbiology and Other Data: Microbiology 06/21/17 18:15 Anaerobic Culture - Preliminary Wound - Left Leg Skin and Soft Tissue MRSA/MSSA (PCR - Final Mrsa Positive S.aureus Positive Gram Stain - Final Wound Culture - Preliminary Staphylococcus Aureus Assess/Plan/Problems-Billing Assessment: Mr. Anderson is a 51 yo male with a PMH significant for DM, MRSA of left foot, VENTURA , chronic hypoxemic resp failure, HTN, PVD, hypothyroidism, and DVT/PE who presented with left foot pain secondary to left lateral foot abscess and chronic osteomyelitis; he is positive for MRSA bacteremia and MRSA in left foot wound, now s/p I&D and repeat washout with bone biopsy. - Patient Problems (1) Abscess Current Visit: Yes Status: Acute Code(s): L02.91 - CUTANEOUS ABSCESS, UNSPECIFIED SNOMED Code(s): 439717121 Comment: Appreciate ID and Ortho consult. s/p I&D on 06/[address] Muñoz Cleaned abscess and left wound open to drain. Returned to OR Sunday 06/25 for washout and bone biopsy taken Wound culture positive for MRSA. No growth repeat culture. Stable for discharge tomorrow if no growth per ortho. Continue vancomycin for 6 weeks to begin. Midline Placed. PICC pending negative blood cultures. Scheduled for 07/05. NWB on left leg. (2) Osteomyelitis Current Visit: Yes Status: Chronic Code(s): M86.9 - OSTEOMYELITIS, UNSPECIFIED SNOMED Code(s): 05307277 Comment: Appreciate ID and Orthopedic input. Continue vancomycin for a total fo 6 weeks and then reevaluate for need of continued dosing. Bone biopsy taken. Culture pending. Histology pending. Repeat blood cultures pending. (3) Atrial fibrillation Current Visit: Yes Status: Acute Priority: High Code(s): I48.91 - UNSPECIFIED ATRIAL FIBRILLATION SNOMED Code(s): 53130093 Comment: Continue metoprolol; Xarelto resumed. Converted to NSR 06/20, Converted back to atrial fibrillation, rate controlled through the day. Telemetry removed at patient's request. Refused to have it replaced. NSR today. (4) MRSA bacteremia Current Visit: Yes Status: Acute Code(s): R78.81 - BACTEREMIA SNOMED Code( s): 86526224265162937 Comment: Positive blood cultures from 06/20 and positive wound culture from left leg on . Repeat BC pending. Continue vancomycin Appreciate ID input (5) Pulmonary embolism Current Visit: Yes Status: Acute Code(s): I26.99 - OTHER PULMONARY EMBOLISM WITHOUT ACUTE COR PULMONALE SNOMED Code(s): 38240209 Comment: History of PE Xarelto resumed (6) Insulin dependent diabetes mellitus Current Visit: Yes Status: Chronic Code(s): E11.9 - TYPE 2 DIABETES MELLITUS WITHOUT COMPLICATIONS; Z79.4 - PRIZER HAND (CURRENT) USE OF INSULIN SNOMED Code(s): 00766492 Comment: Better control today. Continue current regimen. (7) VENTURA (obstructive sleep apnea) Current Visit: Yes Status: Chronic Code(s): G47.33 - OBSTRUCTIVE SLEEP APNEA (ADULT) (PEDIATRIC) SNOMED Code(s): 48713692 Comment: Continue CPAP (8) Diarrhea Current Visit: Yes Status: Acute Code(s): R19.7 - DIARRHEA, UNSPECIFIED SNOMED Code(s): 17323666 Comment: Diarrhea and abdominal discomfort likely due to antibiotics. Started on probiotic, Maalox PRN. (9) DVT prophylaxis Current Visit: Yes Status: Acute Code(s): VUB7965 - SNOMED Code(s): 382917744 Comment: Zehra (10) Full code status Current Visit: No Status: Acute Priority: Medium Onset Date: 06/10/14 Code(s): Z78.9 - OTHER SPECIFIED HEALTH STATUS SNOMED Code(s): 777928942 Status and Disposition: Inpatient admission. Anticipate extended LOS due to MRSA bacteremia and extensive infection. Discharge to facility when available.
[2017-06-28] MEDS: Lactobacillus Acidophilu (GG)* 1 CAP CAP PO SCH (14:25)
[2017-06-28] MEDS: Vancomycin(*) 1,250 MG IV IVPB SCH ×2 (19:58)
[2017-06-29] MEDS: oxyCODONE TAB* 5 MG TAB PO PRN (02:19)
[2017-06-29] MEDS: Levothyroxine TAB* 100 MCG TAB PO SCH (06:04)
[2017-06-29] MEDS: Insulin LISPRO* 1 UNITS UNIT SUBCUT SCH (07:26)
[2017-06-29 07:32] VITALS: BP 146/48
[2017-06-29] MEDS: Mometasone/Formoter 200/5 MDI INH SCH (08:24)
[2017-06-29] MEDS ORDERED: oxyCODONE TAB* 5 MG TAB PO PRN (08:26)
[2017-06-29] MEDS ORDERED: Insulin ISOPH/REG 70/30 (*) 1 UNITS UNIT ONE (09:14)
[2017-06-29] MEDS: Insulin ISOPH/REG 70/30 (*) 1 UNITS UNIT SUBCUT SCH (09:29)
[2017-06-29] MEDS: Rivaroxaban TAB(*) 20 MG TAB PO SCH (09:30)
[2017-06-29] MEDS: Metoprolol Tartrate TAB* 25 MG PO SCH (09:30)
[2017-06-29] MEDS: Lactobacillus Acidophilu (GG)* 1 CAP CAP PO SCH (09:30)
[2017-06-29] MEDS: Spironolactone TAB* 25 MG PO SCH (09:30)
[2017-06-29] MEDS: Allopurinol TAB* 300 MG PO SCH (09:30)
[2017-06-29] MEDS: Nystatin CREAM* 15 GM TUBE TOPICAL SCH (09:30)
[2017-06-29] MEDS: Atorvastatin* 40 MG TAB PO SCH (09:30)
[2017-06-29] MEDS: Metolazone TAB* 5 MG PO SCH (09:30)
[2017-06-29] MEDS: Torsemide TAB* 20 MG PO SCH (09:31)
--- NOTE | 2017-06-29 12:12 | DS ---
CC: Dr. Plasencia; Dr. Rik Muñoz; Dr. Mann Fierro; Dr. Dennis Cervantes* DISCHARGE SUMMARY: DATE OF ADMISSION: 06/20/17 DATE OF DISCHARGE: 06/29/17 PRIMARY CARE PROVIDER: Dr. Plasencia. CONSULTING ORTHOPEDIST: Dr. Rik Muñoz. CONSULTING PROVIDER: Dr. Mann Fierro of Infectious Disease. MY ATTENDING WHILE IN THE HOSPITAL: Dr. Dennis Cervantes* (dictated by RAI Humphreys). PRIMARY DISCHARGE DIAGNOSES: 1. Left foot abscess with possible Charcot arthropathy or probable osteomyelitis. 2. Methicillin-resistant Staphylococcus aureus bacteremia. SECONDARY DISCHARGE DIAGNOSES: 1. Morbid obesity. 2. Obstructive sleep apnea, on CPAP. 3. Diabetes mellitus type 2, insulin dependent. 4. Chronic hypoxic respiratory failure. 5. History of deep venous thrombosis and pulmonary embolism. 6. Hyperlipidemia. 7. Chronic kidney disease. 8. Hypertension. 9. Peripheral vascular disease. 10. Hypothyroidism. 11. Arthritis. 12. Gout. 13. Right second toe osteomyelitis with amputation. STUDIES DONE WHILE IN THE HOSPITAL: Chest x-ray from 06/20/17, read as cardiomegaly with pulmonary interstitial edema. Electrocardiogram from 06/20/17 , read as atrial fibrillation, rate of 147, multifocal P waves, baseline wander , incomplete left bundle-branch block, mild possible ST segment elevation in lead V2, V3, V4, poor study, no abnormalities. EKG from 06/26/17, read as normal sinus rhythm, prolonged OR, PACs, normal axis , no ST segment changes, no other abnormalities, QTc of 434. EKG from 06/28/17, read as normal sinus rhythm with PACs, no other significant OR prolongation, no ST segment abnormalities, no other changes. Foot x-ray from 06/20/17, read as findings most consistent with a neuropathic joint with advanced osteoarthritis and chronic fractures of the midfoot. There is no appreciable erosion or periosteal reaction. Plain film reading of osteomyelitis are relatively late findings. If there is persistent clinical concern for osteomyelitis, recommend correlation with followup imaging, 3-phase bone scanning, white blood cell scan and/or MRI of the affected region. MEDICATIONS AT DISCHARGE: 1. Spironolactone 50 mg p.o. daily. 2. Fluticasone 2 sprays both nares daily as needed. 3. Albuterol 2.5 mg inhalation q.4 hours as needed. 4. Metoprolol tartrate 25 mg p.o. b.i.d. 5. Metolazone 5 mg p.o. daily. 6. Torsemide 40 mg p.o. b.i.d. 7. Levothyroxine 200 mcg p.o. q.a.m. 8. Symbicort 2 puffs inhalation b.i.d. 9. Lipitor 40 mg p.o. daily. 10. Insulin lispro 10 units subcutaneous with meals. 11. Allopurinol 300 mg p.o. daily. 12. Rivaroxaban 20 mg p.o. daily. 13. Albuterol inhaler 2 puffs inhalation q.4 hours as needed. 14. Tylenol 650 mg p.o. q.4 hours as needed. 15. Maalox 30 mL p.o. q.4 hours as needed. 16. Heparin flush 1 mL flush at 0600 and 1800. 17. Insulin isophane regular 70/30, 70 units subcutaneous at 0800 and 1700. 18. Lactobacillus acidophilus 1 cap p.o. daily. 19. Nystatin cream 1 topical application b.i.d. as needed. 20. Oxycodone 5 mg p.o. q.4 hours as needed for pain. 21. MiraLAX 17 g p.o. b.i.d. as needed. 22. Saline nasal drops 1 drop both nares q.4 hours as needed. 23. Vancomycin 1.25 g IV q.24 hours x34. New medications at discharge: 1. Tylenol. 2. Maalox. 3. Heparin. 4. Humulin. 5. Lactobacillus. 6. Nystatin. 7. Oxycodone. 8. MiraLAX. 9. Saline nasal drops. 10. Vancomycin. Medications discontinued at discharge: 1. Oxycodone 5 mg p.o. q.8 hours as needed. 2. Isophane insulin regular 70/30, 80 units subcutaneous b.i.d. HOSPITAL COURSE: This is a brief summary of the patient's presentation. For more details, please see the history and physical from Dr. Rik Richards on . In brief, the patient is a 51-year-old male with a past medical history significant for the above, who is well known to this institution for multiple hospitalizations, most recently in April 2017 with a foot abscess and with MSSA and the patient was treated with antibiotics. We had concern for osteomyelitis on his foot, which was not definite. He had been doing well, was supposed to be nonweightbearing on his left foot, but has been ambulating on it. The patient noticed 2 to 3 days before admission that his foot had become increasingly painful and red and swollen and came back to the emergency room. The patient had a fever and leukocytosis and was admitted to the hospital for recurrent abscess and possible osteomyelitis versus Charcot arthropathy with soft tissue infection. The patient was started on Zosyn and vancomycin. The patient was also found to be in atrial fibrillation with rapid rate. The patient's rate was controlled. The patient has known intermittent atrial fibrillation. The patient had no other abnormalities or complaints on admission. The patient became hypoglycemic overnight from 06/20/17 to 06/21/17 due to late dosing of isophane insulin. The patient was seen in consultation by RAI Devi of Orthopedics and the patient was planned to be taken to the OR on 06/21/17 for I and D. The patient was taken to the operating room on 06/21/17 and had an incision and drainage of his left foot without complication , which was left open to the air with plan for repeat procedure. The patient was found to have a left medial hindfoot abscess. The patient had no other complaints. The patient converted to sinus rhythm and telemetry was taken off him. The patient was seen in consultation on 06/22/[address] Mann Fierro of Infectious Disease and due to the patient's blood cultures growing MRSA, Zosyn was stopped and he was continued on vancomycin as above. The patient had pain in his foot, constipation, and no other complaints. Plan was for the patient to go back to the OR on 06/25/17 for repeat washout and bone biopsy. The patient had persistent leukocytosis, which improved and then remained stable around 11,000. The patient's vital signs were stable and had no other signs of systemic infection including fevers. The patient was tachycardic on admission, which resolved with only intermittent tachycardia. The patient was found to be going in and out of atrial fibrillation throughout his hospital stay , but refused telemetry monitoring to further elucidate this. The patient was symptomatic with lethargy with 1 episode, but otherwise does not know when he goes in and out of atrial fibrillation. The patient went to the operating room on 06/25/17 as planned. The patient's procedure was uncomplicated. The patient's wound was closed. A talar biopsy was taken with pending histology and repeat washout was done. The patient was instructed to be nonweightbearing on that foot until cleared by Orthopedics. The patient had hypoglycemia in the morning of his surgery due to being NPO. The patient was given D50 with good resolution of his symptoms and then hyperglycemia persistently throughout the next day. The patient had his insulin held on the day of surgery. The patient complained of alternating constipation and diarrhea throughout the rest of his stay. The patient had extreme pain in his foot initially after the surgery, which was thereafter controlled with oxycodone as above. The patient's blood sugars were well controlled except for overnight hypoglycemia on 2 occasions, particularly down to 77 on the night of 06/28/17 to 06/29/17. The patient's isophane insulin was decreased as above. The patient's creatinine stayed stable between 1.15 and 1.6, which is his baseline. The patient has a persistently high carbon dioxide from previous hospitalizations, the patient had low carbon dioxide when admitted, possibly due to acidosis from his infection. The patient was amenable to discharge on 06/29/17 to [facility] to continue rehab for support while he is nonweightbearing on his foot and to have continued IV antibiotics for a total of 6 weeks per Infectious Disease when he should then be reevaluated. PHYSICAL EXAMINATION ON DAY OF DISCHARGE: General: The patient is a 51-year- old male who appears older than stated age, is severely obese and sitting in the bed, in no acute distress. HEENT: Head normocephalic, atraumatic. Sclerae anicteric. No conjunctival injection. Nasal mucosa moist. Oral mucosa moist. No pharyngeal erythema, discharge, or exudate. Neck: Obese, supple, nontender. No lymphadenopathy palpable. No carotid bruit auscultated. Cardiac : Regular rate and rhythm. No clicks, murmurs, gallops, or rubs. Pulses 2+ in bilateral dorsalis pedis, posterior tibialis, and radial areas. Slight edema of the bilateral lower extremities is noted. Respiratory: Diminished throughout, clear to auscultation bilaterally. Abdomen: Soft, obese, nondistended. The patient complains of slight tenderness with deep palpation throughout, which he attributes to gas pain. No hepatosplenomegaly palpable and no abdominal bruits are auscultated. Frontal hernia stable from previous examination, nontender to palpation. No other abdominal bruits auscultated. Genitourinary: No suprapubic tenderness or CVA tenderness. Skin: The patient has a grade 2 pressure ulcer on top of his gluteal cleft. The patient has a yeast-like rash in his groin. The patient has venous stasis changes in his bilateral lower extremities. The patient's surgical incision is covered by a bulky dressing with good capillary refill distally. Neuro: Cranial nerves II through XII intact. No focal deficits. Alert and oriented x3. Psychiatric: Pleasant and cooperative. LABORATORY DATA: On 06/28/17, white blood cell count 13.6, hemoglobin 8.9, platelet count 517. Sodium 133, potassium 4.8, chloride 95, carbon dioxide 35, anion gap 3, BUN 69, creatinine 1.22, glucose 75, calcium 9.2. Other laboratory findings: Of note from admission, glucose 77 at 0202 on 06/29/17. Vancomycin trough 15.4 on 06/27/17. CRP 142 at admission, decreased to 71.55 on 06/27/17. DISCHARGE PLAN: The patient will be discharged to [facility] for physical therapy, occupational therapy assistance with his nonweightbearing status and vancomycin for additional 5 weeks at minimum. The patient currently has a midline and will have a PICC line in place on 07/05/17 at [facility], which is already set up. The patient should have weekly CBC, BMPs and vancomycin trough levels. The patient should follow up with Orthopedics in 1 week as scheduled. The patient should follow up with Dr. Fierro as outpatient for continued care and monitoring of his antibiotic therapy. The patient should return to the hospital for alarming symptoms such as what has brought him into the hospital, chest pain or shortness of breath. The patient should follow up with his primary care provider upon discharge from [facility]. The patient should discuss both with [facility] and his primary care provider changing to a basal bolus insulin regimen less likely to cause nighttime hypoglycemia. The patient should have a heart-healthy consistent carbohydrate diet. The patient should be continued on oxygen and CPAP at night. The patient should engage in activity as tolerated while maintaining weightbearing status on his left leg. RAI HUMPHREYS [id number]/[facility] #: [id number] [facility]
[2017-06-29] MEDS ORDERED: Insulin ISOPH/REG 70/30 (*) 1 UNITS UNIT SUBCUT SCH (17:00)
[2017-06-30] MEDS ORDERED: Vancomycin Trough Check NOTE FOLLOW UP ONE (19:30)
== END 2017-06-29 11:25 | DRG 344 ==
LOC: ED 05:40 → MEDTELE 07:37 → OBSVTOIN 06-21 15:19 → MED 06-21 15:23
PROVIDERS: ADMIT Internal Medicine; ATTEND Internal Medicine
PROC: 0Y9N0ZZ Drainage of Left Foot, Open Approach (ICD-10-PCS; 2017-06-21)
PROC: 0QBM0ZX Excision of Left Tarsal, Open Approach, Diagnostic (ICD-10-PCS; principal; 2017-06-25 17:00)
DX: E11.69 Type 2 diabetes mellitus with other specified complication (principal); M86.672 Other chronic osteomyelitis, left ankle and foot; J96.11 Chronic respiratory failure with hypoxia; E11.22 Type 2 diabetes mellitus with diabetic chronic kidney disease; E11.649 Type 2 diabetes mellitus with hypoglycemia without coma; R78.81 Bacteremia; I42.9 Cardiomyopathy, unspecified; E66.01 Morbid (severe) obesity due to excess calories; E11.40 Type 2 diabetes mellitus with diabetic neuropathy, unspecified; I13.0 Hypertensive heart and chronic kidney disease with heart failure and stage 1 through stage 4 chronic kidney disease, or unspecified chronic kidney disease; L02.612 Cutaneous abscess of left foot; Z68.45 Body mass index [BMI] 70 or greater, adult; E11.610 Type 2 diabetes mellitus with diabetic neuropathic arthropathy; I48.91 Unspecified atrial fibrillation; E78.00 Pure hypercholesterolemia, unspecified; E11.51 Type 2 diabetes mellitus with diabetic peripheral angiopathy without gangrene; E03.9 Hypothyroidism, unspecified; B95.62 Methicillin resistant Staphylococcus aureus infection as the cause of diseases classified elsewhere; R19.7 Diarrhea, unspecified; I44.7 Left bundle-branch block, unspecified; M19.072 Primary osteoarthritis, left ankle and foot; N18.9 Chronic kidney disease, unspecified; I50.9 Heart failure, unspecified; J44.9 Chronic obstructive pulmonary disease, unspecified; G47.33 Obstructive sleep apnea (adult) (pediatric); M19.90 Unspecified osteoarthritis, unspecified site; M10.9 Gout, unspecified; Z89.421 Acquired absence of other right toe(s); Z86.14 Personal history of Methicillin resistant Staphylococcus aureus infection; Z88.8 Allergy status to other drugs, medicaments and biological substances; Z86.718 Personal history of other venous thrombosis and embolism; Z86.711 Personal history of pulmonary embolism; Z99.81 Dependence on supplemental oxygen; Z82.49 Family history of ischemic heart disease and other diseases of the circulatory system; Z83.3 Family history of diabetes mellitus; Z87.891 Personal history of nicotine dependence; Z79.4 Long term (current) use of insulin; Z79.01 Long term (current) use of anticoagulants; K59.00 Constipation, unspecified
CPT/HCPCS: 36415; 71045; 80048; 80053; 80202; 81003; 82565; 83605; 83735; 84520; 85025; 85610; 85730; 86140; 87040; 87070; 87073; 87077; 87150; 87186; 87205; 87640; 87641; 88304; 88311; 93005; 94640; 94660; 94760; 99285; A9270-GY; C1751; J1644; J1815; J2001; J2250; J2270; J2405; J2543; J2704; J3010; J3370

== ENCOUNTER 2017-07-24 15:14 | Inpatient (IN) | payer BC, MEDICARE ==
--- OUTSIDE RECORDS SUMMARY | 2017-07-24 15:23 | XMS REPORT ---
:1965 External Reference #:[id number] Author Organization [facility] Address [address] [address] Phone [phone] Care Team Providers Name Role Phone Lencho Plasencia MD Primary Care Physician Unavailable Payers Type Date Identification Numbers Payment Provider Subscriber Health Maintenance Effective: Policy Number: [employer] Bautista Villanueva Justin Olivarez (HMO) 05/07/2011 [id number] Solutions Group Number: [id number] [address] [address] Group Name: [place] [address] PayID: [id number] Medigap Part B Effective: Policy Number: BS Facets Lauren Gia Justin 05/07/2014 [id number] PayID: [id number] [address] [address] [place] [address] Problems Date Description Provider Status Onset: 02/27/2017 [...] Form Strength Qnty SIG Indications Ordering Provider Sulfamethoxazole 06/05/ Active Tablets 800-160mg 30tab 1 by mouth Mann /Trimethoprim DS 2017 s three D. times [place]queen, daily M.DEdwin Albuterol / Active Nebulizer (2.5mg/3M 1 vial via Unknown Sulfate 0000 L) 0.083% nebulizer every 4 hrs as needed for shortness of breath (per 03/05/17 [facility] summary) Proair HFA / Active Aerosol 108(90Bas 2 puffs by Unknown 0000 e) mouth mcg/Act every 4 hours as needed (per 03/05/17 [facility] [place] summary) Allopurinol / Active Tablets 300mg 2 by mouth Unknown 0000 every day (per 03/05/17 [facility] [place] summary) Atorvastatin / Active Tablets 40mg 1 by mouth Unknown Calcium 0000 every day (per 03/05/17 [facility] [place] summary) Symbicort / Active Aerosol 160-4.5mc 2 puff Unknown 0000 g/Act twice a day (per 03/05/17 [facility] [place] summary) Diltiazem HCL ER / Active Caps ER 360mg 1 by mouth Unknown Beads 0000 24HR every day (per 03/05/17 [facility] [place] summary) Fluticasone / Active Suspension 50mcg/Act 2 sprays Unknown Propionate 0000 each nostril daily as needed (per 03/05/17 [facility] [place] summary) Humulin 70/30 / Active Suspension (70-30)10 100 units Unknown 0000 0Unit/ML sub cutaneous twice daily (per 03/05/17 [facility] [place] summary) Humalog / Active Solution 100Unit/M sliding Unknown 0000 L scale at mealtime (per 03/05/17 [facility] [place] summary) Ketoconazole / Active Cream 2% apply Unknown 0000 twice a day (per 03/05/17 [facility] [place] summary) Levothyroxine / Active Tablets 200mcg take 1 Unknown Sodium 0000 tablet every morning (per 03/05/17 [facility] [place] summary) Metolazone / Active Tablets 5mg 1 by mouth Unknown 0000 once daily (per 03/05/17 [facility] [place] summary) Metoprolol / Active Tablets 25mg 1 by mouth Unknown Tartrate 0000 twice a day (per 03/05/17 [facility] [place] summary) Spironolactone / Active Tablets 50mg 1 by mouth Unknown 0000 every day (per 03/05/17 [facility] [place] summary) Torsemide / Active Tablets 20mg 2 by mouth Unknown 0000 twice a day (per 03/05/17 [facility] [place] summary) Coumadin / Active Tablets 5mg 3 by mouth Unknown 0000 every day (per 03/05/17 [facility] summary) Oxycodone HCL / Active Tablets 10mg 1 tab 4h Unknown 0000 as needed for pain (per 03/05/17 [facility] [place] summary) Doxycycline 03/14/ Hx Capsules 100mg 28cap one Mann Hyclate 2017 - s capsule D. 05/31/ twice [facility] 2017 daily for M.D. 14 days Vancomycin HCL / Hx Solution 750mg IV q 12 Unknown 0000 - Rec hrs through 2016 Lifetime Care (end date 03/15/17) (per 03/05/17 [facility] summary) Vital Signs Date Vital Result Comment 07/13/2017 Height 72 inches 6'0" 06/01/2017 Height 72 inches 6'0" Weight 440.00 [...] PLEASE FAX RESULTS TO DR TREADWELL'S OFFICE [phone] 3 Acute inflammation: >10.00 4 [facility] Severe Sepsis and Septic Shock Management Bundle [...] (or dialysis) 6 Result TnIDx:0.05 Called to [id number] at: 17:31:27 by:[id number] Read back by: [id number] Acute inflammation: >10.00 Procedures Date CPT Code Description Status 06/25/2017 52925 Partial Excision Bone Talus/Calcaneus Completed 06/25/2017 28498 Partial Excision Bone Talus/Calcaneus Completed 06/21/2017 23967 I&D Of Abscess Complicated Completed 06/21/2017 49390 I&D Of Abscess Complicated Completed 04/20/2017 11432 EKG, Interpretation Only Completed 04/19/2017 39378 Arthrotomy Ankle Explore/Drain/Remove Foreign Body Completed 04/19/2017 55789 Arthrotomy Ankle Explore/Drain/Remove Foreign Body Completed 04/19/2017 19986 I&D Leg Or Ankle;Deep Abscess Or Hematoma Completed 04/19/2017 73331 I&D Leg Or Ankle;Deep Abscess Or Hematoma Completed 04/17/2017 10961 Inject/Drain Joint/Bursa Intermediate Completed 03/01/2017 87063 Amputation Toe MP JT Completed 03/01/2017 04042 Amputation Toe MP JT Completed 07/28/2016 58231 Removal Devitalization Tissue Wound Less Than Equal 20 Completed Square CM 06/12/2016 15915 EKG, Interpretation Only Completed 06/08/2016 10630 ECHO Transthorasic Realtime 2D W Doppler & Color Completed [facility] 10/25/2015 96749 ECHO Transthorasic Realtime 2D W Doppler & Color Completed [facility] 06/11/2014 20535 EEG Recording Awake & Drowsy Completed 06/11/2014 28152 EKG, Interpretation Only Completed 06/10/2014 63092 ECHO Transthorasic Realtime 2D W Doppler & Color Completed [facility] Encounters Type Date Location Provider CPT E/M Dx Office Visit 06/29/2017 [facility], RAI Fine 32903 I48.91 1:26p Hospitalists M86.272 E66.01 E11.65 Office Visit 06/28/2017 1:25p [facility], Dayorn Castillo, 86214 M86.272 Hospitalists [place] I48.91 E66.01 E11.65 Office Visit 06/27/2017 1:24p [facility], Dayron Castillo, 62000 M86.272 Hospitalists PA I48.91 E66.01 E11.65 Office Visit 06/26/2017 1:23p [facility], Dayron Castillo, 20496 M86.272 Hospitalists PA I48.91 E66.01 E11.65 Office Visit 06/25/2017 1:22p [facility], Dayron Castillo, 04091 M86.272 Hospitalists PA I48.91 E66.01 E11.65 Office Visit 06/24/2017 1:21p [facility], Dayron Castillo, 17074 M86.272 Hospitalists PA I48.91 E66.01 E11.65 Office Visit 06/23/2017 1:20p [facility], 02380 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, 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416 C.M.A. Office Visit 06/01/2017 11:10a [facility] Cheri Lorenzo 27264 N18.3 Infectious Diseases Kenia Treadwell M65.072 B95.62 Office Visit 05/03/2017 7:57a [facility], [place] [address] L03.119 Hospitalists L02.619 N18.3 E66.2 Office Visit 04/27/2017 2:55p [facility] Cheri Lorenzo 55842 L02.612 Infectious Diseases Kenia Treadwell B95.62 E10.22 N18.5 Office Visit 04/27/2017 9:09a [facility], Alysia Do, 55086 L03.116 Hospitalists [place] N18.3 E11.22 E66.01 Office Visit 04/26/2017 9:09a [facility], Alysia Do, 45512 L03.116 Hospitalists [place] N18.3 E11.22 E66.01 Office Visit 04/25/2017 9:08a [facility], Alysia Do, 23987 L03.116 Hospitalists MJulissa N18.3 E11.22 E66.01 Office Visit 04/24/2017 9:07a [facility] 50821 L03.116 Assoc, Hospitalists VICKIE Okeefe I48.91 E66.01 E11.22 Office Visit 04/23/2017 11:23a [facility] Cheri Lorenzo 30195 L02.612 Infectious Diseases Kenia Treadwell B95.62 E10.22 N18.5 Office Visit 04/23/2017 9:06a [facility] 22563 L03.116 Assoc, Hospitalists VICKIE Okeefe I48.91 E11.22 E66.01 Office Visit 04/22/2017 9:05a [facility] 54985 L03.116 Assoc, Hospitalists VICKIE Okeefe E66.01 E11.22 I48.91 Office Visit 04/21/2017 9:05a [facility] 48793 L03.116 Assoc, Hospitalists VICKIE Okeefe E11.22 I48.91 E66.01 Office Visit 04/20/2017 9:04a [facility] 29363 L03.116 Assoc, Hospitalists VICKIE Okeefe E11.22 E66.01 I48.91 Office Visit 04/19/2017 9:03a [facility] 84030 L03.116 Assoc, Hospitalists VICKIE Okeefe E11.22 N18.3 Z79.4 Office Visit 04/19/2017 2:07p [facility] Cheri Lorenzo 62804 L02.612 Infectious Diseases Kenia Treadwell B95.62 Office Visit 04/18/2017 9:53a [facility] Dev[facility] 78711 L08.9 C.M.A. Office Visit 04/18/2017 9:02a [facility], Liseth Nation 09138 L03.116 Hospitalists N.P. E11.22 N18.3 Z79.4 Office Visit 04/17/2017 9:02a [facility] Liseth Nation 07902 L03.116 Hospitalists N.P. N18.3 E11.22 Z79.4 Office Visit 04/17/2017 1:58p [place] [facility] Amanda Lorenzo 80105 M79.672 Infectious Diseases Kenia Treadwell M79.89 E11.40 E11.21 R78.81 Z86.14 Office Visit 04/17/2017 8:50a [facility] Devi 34530 L08.9 C.M.A. Office Visit 04/16/2017 9:01a [facility], Liseth [place], 55285 L03.116 Hospitalists N.P. N18.3 E11.22 Z79.4 Office Visit 04/15/2017 9:00a [facility] Amanda Crisostomo 33265 L03.116 Assoc, Hospitaldebby Aquino N18.3 E11.22 Z79.4 Office Visit 03/05/2017 7:30a [place] [facility] Preet Palencia, 86068 E11.69 Assoc,pc PA Hospitalists I48.91 L08.9 J96.11 Office Visit 03/04/2017 7:28a Edgar Palencia, 91363 E11.69 Assoc,pc PA Hospitalists I48.91 L08.9 J96.11 Office Visit 03/03/2017 7:26a Edgar Palencia, 44237 E11.69 Assoc,pc PA Hospitalists I48.91 L08.9 J96.11 Office Visit 03/02/2017 7:23a Edgar Palencia, 68969 E11.69 Assoc,pc PA Hospitalists I48.91 L08.9 J96.11 Office Visit 03/01/2017 3:37p [place] Preet Palencia, 37252 E11.69 Assoc,pc PA Hospitalists L08.9 I48.91 J96.11 Office Visit 02/28/2017 3:36p [facility], Liseth Nation, 01785 E11.69 Hospitalists N.P. L08.9 I48.91 J96.11 Office Visit 02/28/2017 3:40p [facility] [place] [address] E11.40 C.M.A. E11.621 Office Visit 02/27/2017 3:35p [facility], Liseth [place], 46323 E11.69 Hospitalists N.P. L08.9 I48.91 J96.11 Office Visit 02/26/2017 8:16a [facility] Mann Treadwell, 55472 E11.69 Infectious Diseases M.D. M60.076 M86.671 L03.031 L97.519 E11.51 E11.621 E11.40 Office Visit 02/26/2017 3:35p [facility], Liseth Nation, 74919 E11.69 Hospitalists N.P. L08.9 I48.91 J96.11 Office Visit 02/26/2017 11:45a [facility] [place] [address] E11.69 C.M.A. 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 74415 E11.40 C.M.A. L97.514 Office Visit 02/23/2017 3:32p [facility], [place] [address] E11.69 Hospitalists L08.9 I48.91 E66.01 Office Visit 02/23/2017 9:55a [facility] Laina Anne M.D. 32773 E11.40 C.M.A. B35.1 M86.172 Office Visit 08/11/2016 10:00a [facility] [place] [address] T24.231D [facility] E66.01 E11.40 Office Visit 07/25/2016 3:05p [facility], Rik Richards, 28790 L03.90 Hospitalists Kenia I48.91 E11.42 G47.33 Office Visit 07/25/2016 7:00a [facility]I Hall 25471 L03.115 Of [facility] L97.219 L03.115 E11.22 L97.219 Office Visit 07/24/2016 3:04p [facility], Rik Richards, 98501 E11.42 Hospitalists MEdwinDEdwin L03.90 I48.91 G47.33 Office Visit 07/23/2016 3:03p [facility], Dewey Urban 97075 E11.42 Hospitalists MEdwinDEdwin L03.90 I48.91 G47.33 Office Visit 07/22/2016 3:02p [facility], Dewey Urban 34027 L03.90 Hospitalists MEdwinDEdwin I48.91 E11.42 G47.33 Office Visit 07/21/2016 3:01p [facility], Rik [place], 37774 L03.90 Hospitalists M.D. I48.91 E11.42 G47.33 Office Visit 06/15/2016 2:58p [facility], Rik [place], 49361 I50.9 Hospitalists M.D. E11.9 E66.01 Z79.4 Office Visit 06/14/2016 2:58p [facility], Rik [place], 32922 I50.9 Hospitalists M.D. E11.9 E66.01 Z79.4 Office Visit 06/13/2016 2:57p [facility], Amanda Crisostomo, 57059 I50.9 Hospitalists M.D. E11.9 E66.01 Z79.4 Office Visit 06/12/2016 2:57p [facility], Amanda Crisostomo, 95285 I50.9 Hospitalists M.D. E11.9 E66.01 Office Visit 06/11/2016 2:56p [facility], Amanda Crisostomo, 58052 I50.9 Hospitalists M.D. E11.9 E66.01 Z79.4 Office Visit 06/10/2016 2:56p [facility], Amanda Crisostomo, 96724 I50.9 Hospitalists M.D. E11.9 E66.01 Z79.4 Office Visit 06/09/2016 2:55p [facility], Amanda Crisostomo, 26287 I50.9 Hospitalists M.D. E66.01 E11.9 Z79.4 Office Visit 06/08/2016 2:54p [facility], Elijah Agrawal M.D. 28688 I50.9 Hospitalists E66.01 E11.9 Z79.4 Office Visit 10/31/2015 11:22a [facility], Dewey Urban, 84246 I95.9 Hospitalists M.D. E11.22 I48.0 N18.3 Office Visit 10/30/2015 11:21a [facility], Dewey Urban, 98468 I95.9 Hospitalists M.D. E11.22 I48.0 N18.3 Office Visit 10/29/2015 11:21a [facility],pc Dewey Efraínyusuf, 19310 I95.9 Hospitalists MJulissa E11.22 I48.0 N18.3 Office Visit 10/28/2015 11:20a [facility],pc Dewey Urban, 81566 I95.9 Hospitalists MJulissa E11.22 I48.0 N18.3 Office Visit 10/26/2015 9:21a [facility], [place] [address] I50.31 Hospitalists J18.9 R65.10 I48.91 Office Visit 10/25/2015 3:51p [facility] Maura Snider, 67133 I48.2 Zac Aquino I50.30 Office Visit 10/25/2015 9:20a [facility], [place] [address] I50.31 Hospitalists J18.9 R65.10 I48.91 Office Visit 10/24/2015 9:20a [facility], [place] [address] I50.31 Hospitalists R65.10 J18.9 I48.91 Office Visit 10/23/2015 9:19a [facility], [place] [address] I50.31 Hospitalists J18.9 R65.10 I48.91 Office Visit 10/22/2015 9:18a [place], [address] I50.31 Assoc, Hospitalists Kenia J18.9 R65.10 I48.91 Office Visit 06/13/2014 10:47a [facility],pc Amanda Crisostomo, 40087 333.2 Hospitalists M.Maura 782.3 496 278.01 Office Visit 06/12/2014 10:47a [facility],pc Amanda Hohn, 80539 333.2 Hospitalists M.DEdwin 496 782.3 278.01 Office Visit 06/11/2014 10:26a [place] [address] 780.2 Services Of Wing Coverer 333.2 Office Visit 06/11/2014 10:46a [facility], Rik Richards, 91948 782.3 Hospitalists Kenia 994.8 496 250.00 Office Visit 06/10/2014 10:23a [facility] Edelmira Bell, 05118 781.0 Services Of Zac Aquino 333.2 780.2 Office Visit 06/10/2014 10:45a [facility], Rik Richards, 26650 782.3 Hospitalists Ken[place] 496 994.8 250.00 Plan of Care Future Appointment(s):07/26/2017 1:20 pm - Mann Treadwell M.D. at [facility]2018 - Jose Mckee, MDM86.272 Subacute osteomyelitis, left ankle and footFollow up:Follow Up: 4 weeks
[2017-07-24] MEDS ORDERED: Nitroglycerin TAB 0.4 MG* 0.4 MG TAB SL ONE (15:55)
[2017-07-24] MEDS ORDERED: Aspirin 81 mg CHEW TAB* 81 MG TAB.CHEW PO ONE (15:55)
[2017-07-24 16:10] LABS: ABS Basophils 0.1 10^3/ul (0-0.2); ABS Eosinophils 0.7 10^3/ul (0-0.6); ABS Lymphocytes 0.6 10^3/ul (1.0-4.8); ABS Monocytes 0.6 10^3/ul (0-0.8); ABS Neutrophils 6.2 10^3/ul (1.5-7.7); ABS Nucleated RBC 0 10^3/ul; Hematocrit 29 % (42-52); Hemoglobin 9.1 g/dl (14.0-18.0); Mean Corpuscular HGB Conc 31 g/dl (31-36); Mean Corpuscular Hemoglobin 27 pg (27-31); Mean Corpuscular Volume 86 fL (80-94); Mean Platelet Volume 7 um3 (7.4-10.4); Nucleated Red Blood Cells % 0.1; Platelet Count 343 10^3/ul (150-450); Red Blood Count 3.41 10^6/ul (4.0-5.4); Red Cell Distribution Width 19 % (10.5-15); White Blood Count 8.3 10^3/ul (3.5-10.8)
[2017-07-24 16:20] LABS: EGFR Non-African American 78.5 (>60)
--- NOTE | 2017-07-24 16:26 | RAD ---
HISTORY: Chest pain COMPARISONS: July 05, 2017 VIEWS: 2: frontal portable view of the chest at 4:17 PM FINDINGS: LINES AND TUBES: A left-sided PICC line is noted with the tip overlying the location of the superior vena cava. CARDIOMEDIASTINAL SILHOUETTE: The cardiac silhouette is enlarged. The cardiomediastinal silhouette is otherwise normal for portable technique. PLEURA: The costophrenic angles are sharp. No pleural abnormalities are noted. LUNG PARENCHYMA: There is a diffuse reticular pattern with indistinct pulmonary vessels. ABDOMEN: The upper abdomen is clear. There is no subphrenic gas. BONES AND SOFT TISSUES: No bone or soft tissue abnormalities are noted. IMPRESSION: CARDIOMEGALY WITH PULMONARY INTERSTITIAL EDEMA
[2017-07-24] MEDS ORDERED: Furosemide IV* 10 MG/ML VIAL (40 MG) IV SLOW PU ONE ×2 (16:33→17:44)
[2017-07-24] MEDS ORDERED: Metolazone TAB* 5 MG PO ONE (17:44)
[2017-07-24 17:59] LABS: Urine Appearance Clear; Urine Blood Negative (Negative); Urine Color Yellow; Urine Ketones Negative (Negative); Urine Protein 1+(30 mg/dL) (Negative); Urine Urobilinogen Negative (Negative)
[2017-07-24] MEDS ORDERED: Senna TAB PO PRN (18:22)
[2017-07-24] MEDS ORDERED: guaiFENesin ER TAB 600 MG PO PRN (18:22)
[2017-07-24] MEDS ORDERED: Hemorrhoidal OINT PR PRN (18:22)
[2017-07-24] MEDS ORDERED: Dextrose 50% Syringe 50 ML* 25 GM/50 ML SYRINGE IV PUSH PRN (18:55)
[2017-07-24] MEDS ORDERED: Albuterol 2.5 MG/3 ML NEB.SOL* (0.083%) INH SCH (19:00)
[2017-07-24] MEDS: Mometasone/Formoter 200/5 MDI INH SCH (19:49)
[2017-07-24] MEDS: Metoprolol Tartrate TAB* 25 MG PO SCH (21:17)
[2017-07-24] MEDS: Furosemide IV* 100 MG in NS 0.9% 100 ML* 90 ML IV SCH (21:17)
[2017-07-24] MEDS: Insulin GLARGINE(*) 1 UNITS UNIT SUBCUT SCH (21:18)
[2017-07-24] MEDS: Insulin LISPRO* 1 UNITS UNIT SUBCUT SCH (21:18)
[2017-07-24] MEDS: Polyethylene Glycol 3350* 17 GM PACKET PO SCH (21:20)
[2017-07-24] MEDS: Nystatin CREAM* 15 GM TUBE TOPICAL SCH ×2 (21:20→22:31)
--- NOTE | 2017-07-25 00:34 | HP ---
CC: Dr. Plasencia * HISTORY AND PHYSICAL: DATE OF ADMISSION: 07/24/17 PRIMARY CARE PROVIDER: Dr. Plasencia. CHIEF COMPLAINT: Chest pain. HISTORY OF PRESENT ILLNESS: Mr. Anderson is a 51-year-old male, who is currently at [facility] for subacute rehab following treatment for osteomyelitis of the left ankle and severe deconditioning. The patient states that over the last few days, he has not felt quite well. He has noted increasing gas and bloating. Additionally, he states that he has put on approximately 40 pounds in the last 2 weeks. He states that he has been having chills off and on. He has been having to eat a liquid diet for the last 3 days because when he eats solid foods, he feels quite uncomfortable. The patient states they woke up this morning with what he describes is an elephant sitting on his chest. He describes this on the left side of the chest. He tried a nebulizer treatment, pain medications, and Maalox without any resolution of his discomfort. At noon on the day of admission, the patient noted the discomfort was now in his left shoulder and neck and head. The patient ultimately was brought to the emergency room where he received nitroglycerin and aspirin and the pain has since resolved. The patient states that he has never had anything like this in the past. He has never had a stress test. He has never had a catheterization. Of note, the patient's torsemide he believes has stopped approximately few weeks ago; however, it is still listed on his medication list. The patient is on his usual 5 L of oxygen and he denies any associated shortness of breath, sweats or nausea. PAST MEDICAL HISTORY: 1. Super morbid obesity. 2. VENTURA, on CPAP. 3. Type 2 diabetes. 4. Chronic hypoxic respiratory failure secondary to obesity hypoventilation. 5. History of DVT/PE. 6. Hyperlipidemia. 7. CKD stage 3. 8. Hypertension. 9. Peripheral vascular disease. 10. Hypothyroidism. 11. Arthritis. 12. Gout. 13. History of osteomyelitis of the right second toe, status post amputation. ALLERGIES: TIGECYCLINE. MEDICATIONS: 1. Heparin 5000 units IV daily through the PICC. 2. Lispro 10 units subcutaneous t.i.d. 3. Lipitor 40 mg p.o. daily. 4. Metoprolol tartrate 25 mg p.o. b.i.d. 5. Symbicort 160/4.5 two puffs inhaled twice daily. 6. Xarelto 20 mg p.o. daily. 7. Allopurinol 300 mg p.o. daily. 8. Spironolactone 50 mg p.o. daily. 9. Levothyroxine 200 mcg p.o. daily. 10. Nystatin cream apply topically twice daily to rash. 11. Probiotic 1 cap p.o. daily. 12. Lantus 18 units subcutaneous q.h.s. 13. Vitamin D 1000 units p.o. daily. 14. Senna 1 tab p.o. q.h.s. p.r.n. constipation. 15. Humulin 70/30, 60 units subcutaneous at 0800 and 1700. 16. Guaifenesin ER 600 mg p.o. q.12 hours. 17. Torsemide 20 mg p.o. daily. 18. Flonase 2 squirts to both nostrils daily p.r.n. allergies. 19. Albuterol 1 puff inhaled q.4 hours p.r.n. shortness of breath. 20. Albuterol 1 neb inhaled q.4 hours p.r.n. shortness of breath. 21. Hemorrhoidal ointment applied rectally q.8 hours p.r.n. hemorrhoids. 22. Sodium chloride nasal drops 1 squirt to both nostrils daily p.r.n. dryness. 23. Tylenol 325 mg p.o. q.6 hours p.r.n. pain. 24. MiraLAX 17 g p.o. b.i.d. 25. Simethicone 80 mg p.o. q.8 hours p.r.n. bloating. 26. Oxycodone 5 mg p.o. q.4 hours p.r.n. pain. FAMILY HISTORY: Mom is living, she is 72 and has a history of fibromyalgia. Dad is also living, he is 76, he has a history of diabetes and heart disease. SOCIAL HISTORY: The patient is a former smoker, he quit approximately 20 years ago. He does not drink alcohol. 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 He is , he has one child. His , Lauren is his healthcare proxy. REVIEW OF SYSTEMS: A complete 11-system review of systems is obtained. Pertinent positives and negatives are as per HPI and in addition, the patient does admit to chills over the last 3 days. He also notes that his edema has been worse than usual and he has developed significant amount of edema in the right breast. The area of the edema has dramatically increased in size over the last few weeks. He has been coughing up a scant amount of brown sputum. He was complaining of having a difficult time with urination today and a Wyatt catheter was placed in the ER and 500 mL came out immediately. The patient also complains of depression and anxiety. PHYSICAL EXAMINATION GENERAL: The patient is a well-developed, super morbidly obese male, seen lying in stretcher in no acute distress. VITAL SIGNS: Blood pressure 140/59, pulse 78, respirations 18, temp 98.8, O2 sat 97% on 5 L. HEENT: Pupils are equal and round. Extraocular muscles are intact. Oropharynx is clear. Oral mucosa is moist. There is no submandibular, cervical , or supraclavicular adenopathy, though this is a difficult exam given the patient's body habitus. PULMONARY: Lungs are clear to auscultation anteriorly. CARDIAC: Normal S1, S2. Heart rate is irregularly irregular and a controlled rate. I do not appreciate any murmurs. There is 1 to 2+ pitting edema in the bilateral lower extremities. There is also significant pitting edema to the right breast tissue. This is dramatically different in size compared to the left. There is pitting of the skin and this is slightly erythematous. ABDOMEN: Bowel sounds are present. Abdomen is soft, obese, nontender, nondistended. There is a discrete abdominal wall hernia noted to the right lower pannus. MUSCULOSKELETAL: There is no cyanosis or clubbing of the digits. The patient is status post right second toe amputation. NEURO: Cranial nerves II through XII are grossly intact. Sensation is intact to light touch throughout. PSYCH: The patient is alert. He is oriented x3. Affect appears appropriate. SKIN: Warm and dry. There are no open ulcers. There are patches of dry skin noted on the patient's abdomen and lateral chest wall. There is very dry flaky skin to the bilateral lower extremities and feet. DIAGNOSTIC STUDIES/LAB DATA: WBC 8.3, hemoglobin 9.1, hematocrit 29, platelets 343. Sodium 134, potassium 5.0, chloride 96, CO2 37, BUN 33, creatinine 1.0, glucose 184, lactic acid 0.7, calcium 9.4. Bilirubin 0.5, AST 14, ALT 16, alk phos 195. Troponin 0.01. BNP 404. Albumin 3.1. Urinalysis reveals clear urine with specific gravity of 1.010, hyaline casts are noted to be present. EKG reveals AFib in a controlled rate without any acute ST-T wave abnormalities. Chest x-ray reveals cardiomegaly with pulmonary interstitial edema. PICC line is noted overlying the location of the superior vena cava. ASSESSMENT AND PLAN: Mr. Anderson is a 51-year-old male well known to the hospitalist service for multiple previous hospitalizations, who presents to the emergency room with complaints of chest pain and is found to be with normal vital signs, but concern for pulmonary edema as well as increased subcutaneous edema. 1. Chest pain. I do not suspect that this is an acute coronary syndrome. The patient will be ruled out for myocardial infarction with serial troponins. My biggest suspicion is that this is secondary to heart failure. The patient last had an echocardiogram in June 2016 at which time it was a difficult study; however, the ejection fraction was noted to be 50% to 55%, though the diastolic function could not be appreciated. The patient reports being off his torsemide for the last couple of weeks; however, this is still on his medication list. I have confirmed this with the MAR that came from [facility]. At this point, I feel the patient needs aggressive diuresis. He does have an area of marked edema of the right breast that is dramatically different from the last time he was in the hospital. The patient has already received 40 mg of IV Lasix in the emergency room; however, given his size and his history of stage 3 chronic kidney disease, I will give him 5 mg of metolazone orally followed by another 40 mg of IV x1 and then initiate a Lasix drip at 10 mg per hour. We will obtain daily weights with the Dolphin scale. The patient believes he may have put on as much as 40 pounds in the last couple of weeks. Electrolytes will need to be monitored very closely given his aggressive diuresis. I will add a magnesium level to the labs obtained in the emergency room. I doubt the patient has a pulmonary embolism as he is not more hypoxic than usual and he is not tachycardic. I am not going to pursue a CTA or D-dimer testing at this point. I am also going to hold off on stress testing; however, if an attempted diuresis is made and he continues to have episodes of chest discomfort, this could be considered. If the patient does have a positive stress test; however, he likely is a very poor candidate for catheterization given his super morbid obesity. 2. Type 2 diabetes. The patient will be maintained on his usual home medication regimen in addition to lispro sliding scale. Glucoses will be checked a.c., h.s. His most recent hemoglobin A1c was obtained 07/12/17 and was under fair control at 7.3%. This is improved from April 2017. 3. History of deep venous thrombosis/pulmonary embolism. The patient will continue on his usual dose of Xarelto. 4. Atrial fibrillation. The patient is in a controlled rate. He will continue on metoprolol 25 mg twice daily in addition to the Xarelto. 5. Recent treatment for osteomyelitis of the left ankle. The patient appears to have completed his antibiotic therapy. He still has a PICC line in place. I will, however, confirm that he has completed this antibiotic as it appeared he had 34 doses due following his discharge on 06/29/17. 6. Stage 3 chronic kidney disease. The patient's creatinine is in fact better than his baseline. This makes me also suspect that he is fluid overloaded. 7. Obstructive sleep apnea. We will continue CPAP. 8. Hypertension. The patient's blood pressure is under fair control. He will continue on his usual antihypertensive regimen. 9. DVT prophylaxis. According to the Adult Thrombosis Prophylaxis Risk Factor Assessment Guide, the patient has a total risk factor score of 6, making him the highest risk. He is already on Xarelto and this will act as his DVT prophylaxis. 6. Code status is full. Again, the patient indicates that his is his healthcare proxy. TIME SPENT: Sixty-five minutes was spent admitting this patient. [id number]/[facility] #: [id number] VIGNESH
[2017-07-25 05:08] LABS: EGFR Non-African American 74.2 (>60)
[2017-07-25 05:21] LABS: Hematocrit 30 % (42-52); Hemoglobin 9.2 g/dl (14.0-18.0); Mean Corpuscular HGB Conc 31 g/dl (31-36); Mean Corpuscular Hemoglobin 26 pg (27-31); Mean Corpuscular Volume 86 fL (80-94); Mean Platelet Volume 8 um3 (7.4-10.4); Platelet Count 389 10^3/ul (150-450); Red Blood Count 3.54 10^6/ul (4.0-5.4); Red Cell Distribution Width 19 % (10.5-15); White Blood Count 9.3 10^3/ul (3.5-10.8)
[2017-07-25] MEDS: Levothyroxine TAB* 100 MCG TAB PO SCH (05:23)
[2017-07-25] MEDS: Furosemide IV* 100 MG in NS 0.9% 100 ML* 90 ML IV SCH (05:35)
[2017-07-25] MEDS: Mometasone/Formoter 200/5 MDI INH SCH ×2 (07:51→20:18)
[2017-07-25] MEDS: Albuterol 2.5 MG/3 ML NEB.SOL* (0.083%) INH PRN ×3 (07:52→20:21)
[2017-07-25] MEDS ORDERED: Magnesium Sulfate 2 GM IV* 2 GM/50 ML BAG IVPB ONE (08:48)
[2017-07-25] MEDS ORDERED: Perflutren Lipid Microsphere* 3 ML VIAL ONE (08:54)
[2017-07-25] MEDS: Insulin LISPRO* 1 UNITS UNIT SUBCUT SCH ×7 (08:56→22:14)
[2017-07-25] MEDS: Allopurinol TAB* 300 MG PO SCH (08:56)
[2017-07-25] MEDS: Insulin ISOPH/REG 70/30 (*) 1 UNITS UNIT SUBCUT SCH ×2 (08:56→18:01)
[2017-07-25] MEDS: Rivaroxaban TAB(*) 20 MG TAB PO SCH (08:57)
[2017-07-25] MEDS: Nystatin CREAM* 15 GM TUBE TOPICAL SCH ×2 (08:57→23:38)
[2017-07-25] MEDS: Polyethylene Glycol 3350* 17 GM PACKET PO SCH ×2 (08:57→22:16)
[2017-07-25] MEDS: Metoprolol Tartrate TAB* 25 MG PO SCH ×2 (08:57→22:16)
[2017-07-25] MEDS: Cholecalciferol TAB* 1000 UNITS PO SCH (08:57)
[2017-07-25] MEDS: Spironolactone TAB* 25 MG PO SCH (08:57)
[2017-07-25] MEDS: Atorvastatin* 40 MG TAB PO SCH (08:57)
[2017-07-25] MEDS ORDERED: [UNRECOGNIZED DRUG - OTHER] IV SCH (09:00)
[2017-07-25] MEDS ORDERED: SODIUM CHLORIDE IV SCH (09:00)
[2017-07-25] MEDS ORDERED: HEPARIN IV SCH (09:00)
--- NOTE | 2017-07-25 10:07 | PN ---
Subjective Date of Service: 07/25/17 Interval History: no current chest pain/pressure. Trops negative Pt attests that he was refusing the torsemide at [facility] as they could not assist him with help urinating as frequently as would be needed with it. "hourly " Attests right breast mass has doubled in size "since being at [facility]" ID consulted. diuresing briskly on the lasix gtt. Afib intermittently ECHO obtained. had not been getting physical therapy as hard to get out of bed reports has been off 70/30 at [facility], now lantus with 02/13/10 qac.. Hx of nocturnal hypoglycemia. Objective Active Medications: Acetaminophen (Tylenol Tab*) 325 mg PO Q6H PRN PRN Reason: PAIN Albuterol (Ventolin 2.5 Mg/3 Ml Neb.Christy*) 2.5 mg INH Q4H PRN PRN Reason: SOB/WHEEZING Last Admin: 07/25/17 07:52 Dose: 2.5 mg Allopurinol (Zyloprim Tab*) 300 mg PO DAILY [facility] Last Admin: 07/25/17 08:56 Dose: 300 mg Atorvastatin Calcium (Lipitor*) 40 mg PO DAILY [facility] Last Admin: 07/25/17 08:57 Dose: 40 mg Cholecalciferol (Vitamin D Tab*) 1,000 units PO DAILY [facility] Last Admin: 07/25/17 08:57 Dose: 1,000 units Dextrose (D50w Syringe 50 Ml*) 12.5 gm IV PUSH .FOR FS < 60 - SS PRN PRN Reason: FS < 60 Guaifenesin (Mucinex*) 600 mg PO Q12H PRN PRN Reason: congestion Heparin Sodium (Porcine) (Heparin Flush Picc/Ml/Cvc(*)) 1 - 3 ml FLUSH 0600, 1800 GISELLA PRN Reason: Protocol Last Admin: 07/25/17 05:03 Dose: Not Given Furosemide 100 mg/ Sodium (Chloride) 100 mls @ 10 mls/hr IV Q10H GISELLA PRN Reason: 10 MG/HR Last Admin: 07/25/17 05:35 Dose: 10 mls/hr Insulin Glargine (Lantus(*)) 18 units SUBCUT BEDTIME [facility] Last Admin: 07/24/17 21:18 Dose: 18 units Insulin Human Isoph/Insulin Regular (Humulin 70/30 (*)) 60 units SUBCUT 0800, 1700 [facility] Last Admin: 07/25/17 08:56 Dose: 60 unit Insulin Human Lispro (Humalog*) 10 units SUBCUT TID PC [facility] Last Admin: 07/25/17 09:00 Dose: Not Given Insulin Human Lispro (Humalog*) 0 units SUBCUT ACHS [facility] PRN Reason: Protocol Last Admin: 07/25/17 08:56 Dose: 3 units Levothyroxine Sodium (Synthroid Tab*) 200 mcg PO DAILY@0600 [facility] Last Admin: 07/25/17 05:23 Dose: 200 mcg Metoprolol Tartrate (Lopressor Tab*) 25 mg PO BID [facility] Last Admin: 07/25/17 08:57 Dose: 25 mg Mometasone Furoate/Formoterol Fumar (Dulera 200/5 Mdi*) 2 puff INH BID [facility] PRN Reason: Protocol Last Admin: 07/25/17 07:51 Dose: 2 puff Nystatin (Nystatin Cream*) 1 applic TOPICAL BID [facility] Last Admin: 07/25/17 08:57 Dose: 1 applic Oxycodone HCl (Roxycodone Tab*) 5 mg PO Q4H PRN PRN Reason: PAIN - SEVERE Phenyleph/Shark Oil/Min Oil/Petrol (Preparation H*) 1 applic SD Q8H PRN PRN Reason: PAIN Polyethylene Glycol/Electrolytes (Miralax*) 17 gm PO BID [facility] Last Admin: 07/25/17 08:57 Dose: 17 gm Rivaroxaban (Xarelto(*)) 20 mg PO DAILY [facility] Last Admin: 07/25/17 08:57 Dose: 20 mg Senna (Senokot Tab*) 1 tab PO BEDTIME PRN PRN Reason: CONSTIPATION Simethicone (Mylicon Tab*) 80 mg PO Q8H PRN PRN Reason: bloating Spironolactone (Aldactone Tab*) 50 mg PO DAILY [facility] Last Admin: 07/25/17 08:57 Dose: 50 mg Vital Signs - 8 hr 07/25/17 07/25/17 07/25/17 04:35 07:58 07:59 Temperature 97.5 F 97.9 F Pulse Rate 77 84 78 Respiratory 16 28 18 Rate Blood Pressure 136/75 (mmHg) O2 Sat by Pulse 100 100 97 Oximetry 03/21/18 08:54 Temperature 97.8 F Pulse Rate Respiratory Rate Blood Pressure 114/58 (mmHg) O2 Sat by Pulse Oximetry Oxygen Devices in Use Now: Nasal Cannula Appearance: NAD, super morbid obesity. Eyes: No Scleral Icterus, PERRLA Ears/Nose/Mouth/Throat: NL Teeth, Lips, Gums Neck: Trachea Midline Respiratory: - - anteriorly CTAB, no wheezing or rhonchi. Cardiovascular: RRR, - - NSR no m/r/g. right chest wall with extreme protusion ~ 13 inches outward compared to left. Abdominal: - - pitting edema right breast, right upper abdomen. Extremities: - - 2-3+ edema. Skin: - - slight erythema to right chest wall and right upper abdomen Neurological: Alert and Oriented x 3, NL Sensation, NL Muscle Strength and Tone Nutrition: Taking PO's Result Diagrams: 07/25/17 04:35 07/25/17 04:35 Additional Lab and Data: Laboratory Results - last 24 hr 07/24/17 07/24/17 07/24/17 16:08 18:20 18:53 WBC RBC Hgb Hct MCV MCH MCHC RDW Plt Count MPV D-Dimer, Quantitative Sodium Potassium Chloride Carbon Dioxide Anion Gap BUN Creatinine Est GFR ( Amer) Est GFR (Non-Af Amer) BUN/Creatinine Ratio Glucose POC Glucose (mg/dL) 193 H Calcium Magnesium 1.8 L Iron TIBC % Saturation Unsat Iron Binding Transferrin Ferritin Troponin I 0.01 C-Reactive Protein Urine Color Yellow Urine Appearance Clear Urine pH 5.0 Ur Specific Vado 1.010 Urine Protein 1+(30 mg/dl) A Urine Ketones Negative Urine Blood Negative Urine Nitrate Negative Urine Bilirubin Negative Urine Urobilinogen Negative Ur Leukocyte Esterase Negative Urine WBC (Auto) Trace(0-5/hpf) Urine RBC (Auto) Absent Urine Bacteria Absent Hyaline Casts Present A Urine Glucose Negative Vancomycin Trough 07/24/17 07/24/17 07/25/17 19:53 21:30 04:35 WBC RBC Hgb Hct MCV MCH MCHC RDW Plt Count MPV D-Dimer, Quantitative Sodium 135 Potassium 4.9 Chloride 94 L Carbon Dioxide 39 H Anion Gap 2 BUN 34 H Creatinine 1.05 Est GFR ( Amer) 95.4 Est GFR (Non-Af Amer) 74.2 BUN/Creatinine Ratio 32.4 H Glucose 178 H POC Glucose (mg/dL) 188 H Calcium 9.5 Magnesium 1.7 L Iron TIBC % Saturation Unsat Iron Binding Transferrin Ferritin Troponin I 0.01 C-Reactive Protein 14.44 H Urine Color Urine Appearance Urine pH Ur Specific Vado Urine Protein Urine Ketones Urine Blood Urine Nitrate Urine Bilirubin Urine Urobilinogen Ur Leukocyte Esterase Urine WBC (Auto) Urine RBC (Auto) Urine Bacteria Hyaline Casts Urine Glucose Vancomycin Trough 07/25/17 07/25/17 07/25/17 04:35 07:24 11:38 WBC 9.3 RBC 3.54 L Hgb 9.2 L Hct 30 L MCV 86 MCH 26 L MCHC 31 RDW 19 H Plt Count 389 MPV 8 D-Dimer, Quantitative Sodium Potassium Chloride Carbon Dioxide Anion Gap BUN Creatinine Est GFR ( Amer) Est GFR (Non-Af Amer) BUN/Creatinine Ratio Glucose POC Glucose (mg/dL) 185 H 182 H Calcium Magnesium Iron TIBC % Saturation Unsat Iron Binding Transferrin Ferritin Troponin I C-Reactive Protein Urine Color Urine Appearance Urine pH Ur Specific Vado Urine Protein Urine Ketones Urine Blood Urine Nitrate Urine Bilirubin Urine Urobilinogen Ur Leukocyte Esterase Urine WBC (Auto) Urine RBC (Auto) Urine Bacteria Hyaline Casts Urine Glucose Vancomycin Trough 07/25/17 07/25/17 11:50 13:57 WBC RBC Hgb Hct MCV MCH MCHC RDW Plt Count MPV D-Dimer, Quantitative 947 H Sodium Potassium Chloride Carbon Dioxide Anion Gap BUN Creatinine Est GFR ( Amer) Est GFR (Non-Af Amer) BUN/Creatinine Ratio Glucose POC Glucose (mg/dL) Calcium Magnesium Iron 27 L TIBC 309 % Saturation 9 L Unsat Iron Binding 282 Transferrin 221 Ferritin 111.3 Troponin I C-Reactive Protein Urine Color Urine Appearance Urine pH Ur Specific Vado Urine Protein Urine Ketones Urine Blood Urine Nitrate Urine Bilirubin Urine Urobilinogen Ur Leukocyte Esterase Urine WBC (Auto) Urine RBC (Auto) Urine Bacteria Hyaline Casts Urine Glucose Vancomycin Trough 12.8 Microbiology and Other Data: Microbiology 07/24/17 17:43 Nasal Nasal Screen MRSA (PCR)(JEAN CARLOS) - Final Mrsa Not Detected Assess/Plan/Problems-Billing Assessment: 51 yo male [facility] OHS, chronic hypoxic respiratory failure, diastolic CHF, IDDM, Osteomyelitis s/p amputation, recent MRSA bacteremia on IV vancomycin p/w chest pressure, weight gain, rapidly enlarging right chest swelling near known [id number] lipoma w/ some erythema. Suspected acute CHF exacerbation on lasix gtt. Cellulitis. Severe pHTN on ECHO, elevated DDimer. CT chest angio ordered. - Patient Problems (1) Acute on chronic diastolic (congestive) heart failure Current Visit: No Status: Acute Priority: High Code(s): I50.33 - ACUTE ON CHRONIC DIASTOLIC (CONGESTIVE) HEART FAILURE SNOMED Code(s): 291470366 Comment: on lasix gtt. stop and go to 60mg IV q8. Daily weights. strict i/o spironolactone home was torsemide 20mg daily but had refused it for few weeks it sounds like. ECHO with severe pHTN, e/o right sided volume overload. DDimer also elevated. Consider CT chest angiogram to rule out PE. is on xarelto so it would be a treatment failure. may need RHC. (2) Anemia Current Visit: No Status: Acute Priority: High Onset Date: 06/10/14 Code (s): D64.9 - ANEMIA, UNSPECIFIED SNOMED Code(s): 367160842 Comment: normocytic but elevated RDW. On xarelto for Afib add iron panel and ferritin. iron 27% iron sat 9% ferritin 111. (3) Cellulitis Current Visit: No Status: Acute Code(s): L03.90 - CELLULITIS, UNSPECIFIED SNOMED Code(s): 515420485 Comment: right chest with slight erythema and inflammatory skin changes on CT chest. continue vancomycin add GN coverage with ceftriaxone. ID was consulted. (4) Atrial fibrillation Current Visit: No Status: Acute Priority: High Code(s): I48.91 - UNSPECIFIED ATRIAL FIBRILLATION SNOMED Code(s): 85136112 Comment: Continue metoprolol; continue Xarelto replete lytes Mg>2, K>4. monitor closely given aggressive diuresis. (5) Chronic respiratory failure Current Visit: No Status: Acute Code(s): J96.10 - CHRONIC RESPIRATORY FAILURE, UNSP W HYPOXIA OR HYPERCAPNIA SNOMED Code(s): 54722799 Comment: Pt with chronic hypoxic respiratory failure secondary to COPD and obesity hypoventilation syndrome. also now volume overloaded 2/2 acute on chronic diastolic CHF. diruresis. Continue supplemental O2. (6) Morbid obesity Current Visit: No Status: Acute Code(s): E66.01 - MORBID (SEVERE) OBESITY DUE TO EXCESS CALORIES SNOMED Code(s): 050294842 Comment: Encourage diet modification. (7) Diabetes mellitus Current Visit: No Status: Acute Code(s): E11.9 - TYPE 2 DIABETES MELLITUS WITHOUT COMPLICATIONS SNOMED Code(s): 69832227 Comment: stop 70/30 60 Uunits SQ BID (states was not getting it recently) continue lantus 18U qhs. continue lispro 10 units with each meal standing in addition to sliding scale. A1C 7.3 on 07/12/17 (8) MRSA (methicillin resistant Staphylococcus aureus) Current Visit: No Status: Chronic Code(s): A49.02 - METHICILLIN RESIS STAPH INFECTION, UNSP SITE SNOMED Code(s): 853551410 Comment: MRSA bacteremia and wound infection in Jun 2017. has PICC 07/05 restart IV vancomycin. Missed last night. goal trough 15-20 ID consulted. dosing per pharmacy. Status and Disposition: medicine inpatient.
--- NOTE | 2017-07-25 11:56 | ECHO ---
Patient: DAVE LUQUE [facility] Rec#: [id number] : 1965 Date: 07/25/2017 Age: 51y Height: 182.9 cm / 72.0 in Weight: 199.6 kg / 439.9 lbs Sex: M BSA: 2.98 Room#: 453 Admit Date#: 07/24/2017 Type: Inpatient Referring: Alysia Do DO Reading: Kinjal Denis MD Pressure Steamer Tender: Ceci Dick RN RDCS CC: Lencho Plasencia MD Transthoracic Echocardiogram Indication: CHF BP: 136/75 HR: 90 Rhythm: NSR with PACs Findings History: Super morbid obesity, HTN, DM, HLD, parox. A. fib, chronic hypoxic respiratory failure, PVD, DVT/PE, hypothyroidism, CKD Technical Comments: The study is technically limited due to patient body habitus. The study is technically limited due to the patient's smoking history. The study was technically limited due to the patient's inability to lay in the left lateral decubitus position. Left Ventricle: The left ventricular chamber size is mildly dilated. Moderate concentric left ventricular hypertrophy is observed. Global left ventricular wall motion and contractility are within normal limits. Left ventricular systolic function is at the lower limits of normal. The estimated ejection fraction is 50-55%. There is septal flattening of the interventricular septum consistent with right ventricular volume or pressure overload. Abnormal left ventricular diastolic function is observed. The left ventricular diastolic filling pattern is consistent with pseudonormalization. The patient was unable to perform a Valsalva maneuver. Left Atrium: The left atrium is mildly dilated. Right Ventricle: The right ventricle is mild to moderately dilated. The right ventricular global systolic function is low normal. Right Atrium: The right atrium is mild to moderately dilated. Aortic Valve: The aortic valve leaflets are mildly thickened. There is mild thickening of the non coronary cusp. Mild aortic leaflet calcification is visualized. There is a trace of aortic regurgitation. There is no evidence of aortic stenosis. Mitral Valve: Moderate mitral annular calcification present. The mitral valve leaflets are mildly thickened. Mitral valve leaflet mobility is mildly restricted.posterior leaflet. There is mild mitral regurgitation. There is borderline mitral stenosis. The mean gradient across the mitral valve is 5.9 mmHg. The mitral valve area, by pressure half time, is calculated at 3.2 cm2. Tricuspid Valve: The tricuspid valve leaflets are normal. There is mild to moderate tricuspid regurgitation. The right ventricular systolic pressure is estimated at 61 mmHg. There is evidence of severe pulmonary hypertension. There is no tricuspid stenosis. Pulmonic Valve: The pulmonic valve appears normal. There is a trace pulmonic regurgitation. There is no pulmonic stenosis. Pericardium: There is no significant pericardial effusion. A pericardial fat pad is visualized. Aorta: There is mild dilatation of the ascending aorta. The aortic arch is not well visualized. The aortic root is normal in size. Pulmonary Artery: The main pulmonary artery is not well visualized. Venous: The inferior vena cava is dilated. There is no change in the dimension of the inferior vena cava with respiration consistent with markedly increased right atrial pressure. Contrast: Definity was used to optimize study. A total of 3 ml of diluted Definity was given through the patient's PICC line. Conclusions The study is technically limited due to patient body habitus. Moderate concentric left ventricular hypertrophy is observed. The estimated ejection fraction is 50-55%. There is septal flattening of the interventricular septum consistent with right ventricular volume or pressure overload. The left ventricular diastolic filling pattern is consistent with pseudonormalization. The right ventricular global systolic function is low normal. Bi atrial enlargement. The aortic valve leaflets are mildly thickened and calcified, good aortic valve fuction. Moderate mitral annular calcification present. Mitral valve leaflet mobility is mildly restricted. There is mild mitral regurgitation. There is mitral stenosis: mean gradient across the mitral valve is 5.9 mmHg, MVA is 3.2 cm2 P 1/2 method. There is mild to moderate tricuspid regurgitation. There is evidence of severe pulmonary hypertension: 61 mmHg. There is mild dilatation of the ascending aorta. Compared with prior echo of 06/08/16, LVEF is stable, RV hypokinesis newly noted, MAC seen previously, MS and MR newly noted, TR has increased from trace/mild and PA pressure elevation newly noted. Measurements Name Value Normal Range RVIDd (AP) 2D 2.6 cm (0.9 - 2.6) RVDdMajor (2D) 5.1 cm (2.2 - 4.4) RAd ISD 4CH 6 cm (3.4 - 4.9) RA (A4C)W 4.7 cm (2.9 - 4.6) IVSd (2D) 1.4 cm (0.6 - 1) LVPWd (2D) 1.4 cm (0.6 - 1) LVIDd (2D) 5.9 cm (3.6 - 5.4) LVIDs (2D) 3.8 cm - LV FS (2D) 36 % (25 - 45) Aortic Annulus 2.4 cm (1.4 - 2.6) Ao root diameter (2D) 3.3 cm (2.1 - 3.5) Ascending Ao 3.7 cm (2.1 - 3.4) LA dimension (AP) 2D 4.9 cm (2.3 - 3.8) LAd ISD 4CH 5.5 cm (2.9 - 5.3) LA ISD 4CH W 5.4 cm (2.5 - 4.5) Name Value Normal Range LA ESV SP 4CH (A/L) 77 ml - LA ESV SP 2CH (A/L) 105 ml - LA ESV BP (A/L) 91 ml - LA ESV BP (A/L) index 30.5 ml/m2 - LA ESV SP 4CH (MOD) 70 ml - LA ESV SP 2CH (MOD) 99 ml - Name Value Normal Range MV E-wave Vmax 1.5 m/sec - MV deceleration time 220 msec - MV A-wave Vmax 0.95 m/sec - MV E:A ratio 1.6 ratio - LV septal e' Vmax 0.05 m/sec - LV lateral e' Vmax 0.06 m/sec - LV E:e' septal ratio 30 ratio - LV E:e' lateral ratio 25 ratio - Name Value Normal Range AV Vmax 1.5 m/sec - AV VTI 30.7 cm - AV peak gradient 8.8 mmHg - AV mean gradient 5.3 mmHg - LVOT Vmax 1.3 m/sec - LVOT VTI 29.6 cm - LVOT peak gradient 6.7 mmHg - LVOT mean gradient 3.5 mmHg - Name Value Normal Range MV Vmax 2 m/sec - MV VTI 45.7 cm - MV peak gradient 15.6 mmHg - MV mean gradient 5.9 mmHg - MV PHT 70 msec - MVA (PHT) 3.2 cm2 - Name Value Normal Range TR Vmax 3.4 m/sec - TR peak gradient 46 mmHg - RAP 15 mmHg - RVSP 61 mmHg - IVC diameter 3.7 cm - Name Value Normal Range PV Vmax 1.2 m/sec -
[2017-07-25 12:48] LABS: Vancomycin Trough 12.8 mcg/mL
[2017-07-25] MEDS ORDERED: Vancomycin per Pharmacy* NOTE FOLLOW UP SCH (14:00)
[2017-07-25] MEDS: Vancomycin(*) 1,000 MG in NS 0.9% 250 ML* 250 ML IVPB SCH (14:43)
[2017-07-25] MEDS: oxyCODONE TAB* 5 MG TAB PO PRN (14:49)
--- NOTE | 2017-07-25 15:47 | RAD ---
HISTORY: Increasing right-sided chest mass COMPARISONS: June 08, 2016 TECHNIQUE: Multiple contiguous axial CT scans of the chest were obtained without intravenous contrast. Coronal and sagittal multiplanar reformations are also submitted for review. FINDINGS: Evaluation is limited secondary to patient body habitus. Evaluation is also limited due to the lack of venous contrast which limits evaluation of the solid organs and vasculature. NECK AND THYROID: The lower neck and thyroid are unremarkable. CHEST WALL: Again noted is a lipoma of the shoulder are low. This is stable. There has been interval development of extensive inflammatory change of the right breast/anterior chest. HEART AND PERICARDIUM: The heart is unremarkable. AORTA AND PULMONARY VASCULATURE: The aorta and pulmonary vasculature are normal. MEDIASTINUM: There is no mediastinal lymphadenopathy by size criteria. GIL: There is no hilar lymphadenopathy by size criteria. AIRWAY AND ESOPHAGUS: The airway is unremarkable, without endobronchial filling defect. The esophagus is grossly normal. LUNG PARENCHYMA: There is compressive atelectasis of the right lung base. PLEURA: There is a moderate right-sided pleural effusion. UPPER ABDOMEN: The upper abdomen is unremarkable. BONES AND SOFT TISSUES: Mild degenerative changes are noted of the spine. As noted above, there is inflammatory change of the right anterior breast/anterior chest. OTHER: None. IMPRESSION: 1. LIMITED STUDY. 2. THERE HAS BEEN INTERVAL DEVELOPMENT OF EXTENSIVE INFLAMMATORY CHANGE OF THE RIGHT BREAST/ANTERIOR CHEST SUGGESTIVE OF CELLULITIS. 3. THERE IS A STABLE LIPOMA OF THE RIGHT SHOULDER. 4. MODERATE RIGHT PLEURAL EFFUSION WITH COMPRESSIVE ATELECTASIS OF THE RIGHT LOWER LOBE.
[2017-07-25] MEDS ORDERED: Furosemide IV* 100 MG in NS 0.9% 100 ML* 90 ML IV SCH (17:00)
[2017-07-25] MEDS ORDERED: cefTRIAXone(*) 1 GM in NS 0.9% 50 ML* 50 ML IVPB SCH (17:00)
[2017-07-25] MEDS: cefTRIAXone 1000 MG SYRINGE IVPB Q24H IVPB SCH ×2 (17:55)
[2017-07-25] MEDS: Tamsulosin CAP* 0.4 MG PO SCH (17:55)
[2017-07-25] MEDS: Fluticasone NASAL SPRAY 50MCG* 16 gm SPRAY BTL BOTH NARES PRN (18:00)
[2017-07-25] MEDS: Simethicone TAB* 80 MG TAB.CHEW PO PRN (18:05)
[2017-07-25] MEDS ORDERED: Furosemide IV* 10 MG/ML 10 ML VIAL (100 MG) IV SCH (22:00)
[2017-07-25] MEDS: Insulin GLARGINE(*) 1 UNITS UNIT SUBCUT SCH (22:15)
[2017-07-25] MEDS ORDERED: Magnesium Sulfate 2 GM IV* 2 GM/50 ML BAG IV ONE (23:00)
[2017-07-25] MEDS ORDERED: Magnesium Sulfate IV* 3 GM in NS 0.9% 100 ML* 100 ML IVPB ONE (23:03)
[2017-07-26] MEDS ORDERED: Magnesium Sulfate 1 GM IV* 1 GM/100 ML BAG IV ONE ×2 (02:00→13:00)
[2017-07-26] MEDS: Levothyroxine TAB* 100 MCG TAB PO SCH (05:35)
[2017-07-26] MEDS: oxyCODONE TAB* 5 MG TAB PO PRN ×2 (05:35→16:25)
[2017-07-26] MEDS ORDERED: Furosemide IV* 10 MG/ML 10 ML VIAL (100 MG) IV SCH (08:00)
[2017-07-26] MEDS: Polyethylene Glycol 3350* 17 GM PACKET PO SCH ×2 (08:35→21:42)
[2017-07-26] MEDS: Rivaroxaban TAB(*) 20 MG TAB PO SCH (08:36)
[2017-07-26] MEDS: Metoprolol Tartrate TAB* 25 MG PO SCH ×2 (08:36→21:42)
[2017-07-26] MEDS: Insulin LISPRO* 1 UNITS UNIT SUBCUT SCH ×7 (08:36→21:42)
[2017-07-26] MEDS: Atorvastatin* 40 MG TAB PO SCH (08:36)
[2017-07-26] MEDS: Tamsulosin CAP* 0.4 MG PO SCH (08:36)
[2017-07-26] MEDS: Cholecalciferol TAB* 1000 UNITS PO SCH (08:36)
[2017-07-26] MEDS: Spironolactone TAB* 25 MG PO SCH (08:37)
[2017-07-26] MEDS: Allopurinol TAB* 300 MG PO SCH (08:37)
[2017-07-26] MEDS: Ferrous Gluconate TAB* 324 MG TAB PO SCH (08:37)
[2017-07-26] MEDS: Nystatin CREAM* 15 GM TUBE TOPICAL SCH ×2 (08:41→21:42)
[2017-07-26] MEDS: Fluticasone NASAL SPRAY 50MCG* 16 gm SPRAY BTL BOTH NARES PRN (08:41)
[2017-07-26] MEDS: Albuterol 2.5 MG/3 ML NEB.SOL* (0.083%) INH PRN ×2 (08:57→16:32)
[2017-07-26] MEDS: Mometasone/Formoter 200/5 MDI INH SCH ×2 (08:57→20:08)
[2017-07-26 09:21] LABS: ABS Basophils 0.1 10^3/ul (0-0.2); ABS Eosinophils 0.8 10^3/ul (0-0.6); ABS Lymphocytes 0.5 10^3/ul (1.0-4.8); ABS Monocytes 0.7 10^3/ul (0-0.8); ABS Neutrophils 6.4 10^3/ul (1.5-7.7); ABS Nucleated RBC 0 10^3/ul; Eosinophil % 9.4 % (0-6); Hematocrit 31 % (42-52); Hemoglobin 9.3 g/dl (14.0-18.0); Lymphocyte % 6.3 % (25-47); Mean Corpuscular HGB Conc 31 g/dl (31-36); Mean Corpuscular Hemoglobin 26 pg (27-31); Mean Corpuscular Volume 85 fL (80-94); Mean Platelet Volume 7.6 um3 (7.4-10.4); Nucleated Red Blood Cells % 0.2; Platelet Count 349 10^3/ul (150-450); Red Blood Count 3.58 10^6/ul (4.0-5.4); Red Cell Distribution Width 18 % (10.5-15); White Blood Count 8.5 10^3/ul (3.5-10.8)
[2017-07-26 09:24] LABS: EGFR Non-African American 75.8 (>60)
[2017-07-26] MEDS ORDERED: Magnesium Sulfate IV* 3 GM in NS 0.9% 100 ML* 100 ML IVPB ONE (10:30)
--- NOTE | 2017-07-26 10:30 | PN ---
Subjective Date of Service: 07/26/17 Interval History: attests to abdominal pain 11/13, diffuse. started "just now". Did have 3 small BMs overnight. denies chest pain or pressure. diuresed large volume though don't completely trust the accounting (may have double counted as there was a 6L out in 1 hour yesterday mid day) down 1.7 kg ID evaluated. Pathology consulted (after IR spoke to) about attaining tissue sample of right chest mass. Objective Active Medications: Acetaminophen (Tylenol Tab*) 325 mg PO Q6H PRN PRN Reason: PAIN Albuterol (Ventolin 2.5 Mg/3 Ml Neb.Christy*) 2.5 mg INH Q4H PRN PRN Reason: SOB/WHEEZING Last Admin: 07/26/17 08:57 Dose: 2.5 mg Allopurinol (Zyloprim Tab*) 300 mg PO DAILY [facility] Last Admin: 07/26/17 08:37 Dose: 300 mg Atorvastatin Calcium (Lipitor*) 40 mg PO DAILY [facility] Last Admin: 07/26/17 08:36 Dose: 40 mg Cholecalciferol (Vitamin D Tab*) 1,000 units PO DAILY [facility] Last Admin: 07/26/17 08:36 Dose: 1,000 units Dextrose (D50w Syringe 50 Ml*) 12.5 gm IV PUSH .FOR FS < 60 - SS PRN PRN Reason: FS < 60 Ferrous Gluconate (Fergon Tab*) 324 mg PO DAILY [facility] Last Admin: 07/26/17 08:37 Dose: 324 mg Fluticasone Propionate (Flonase Nasal [place] 50mcg*) 2 spray BOTH NARES DAILY PRN PRN Reason: Allergy Symptoms Last Admin: 07/26/17 08:41 Dose: 2 spray Furosemide (Lasix Iv*) 40 mg IV 0800,1700 [facility] Last Admin: 07/26/17 08:35 Dose: 40 mg Guaifenesin (Mucinex*) 600 mg PO Q12H PRN PRN Reason: congestion Heparin Sodium (Porcine) (Heparin Flush Picc/Ml/Cvc(*)) 1 - 3 ml FLUSH 0600, 1800 [facility] PRN Reason: Protocol Last Admin: 07/26/17 05:41 Dose: 1 ml Vancomycin HCl 1,000 mg/ (Sodium Chloride) 250 mls @ 166.667 mls/hr IVPB Q24H [facility] Last Admin: 07/25/17 14:43 Dose: 166.667 mls/hr Ceftriaxone Sodium 1,000 mg/ (Sterile Water) 10 mls @ 40 mls/hr IVPB Q24H [facility] Last Admin: 07/25/17 17:55 Dose: 40 mls/hr Magnesium Sulfate 3 gm/ Sodium (Chloride) 106 mls @ 53 mls/hr IVPB ONCE ONE Stop: 07/26/17 12:29 Insulin Glargine (Lantus(*)) 18 units SUBCUT BEDTIME [facility] Last Admin: 07/25/17 22:15 Dose: 18 units Insulin Human Lispro (Humalog*) 10 units SUBCUT TID PC [facility] Last Admin: 07/26/17 08:40 Dose: Not Given Insulin Human Lispro (Humalog*) 0 units SUBCUT ACHS [facility] PRN Reason: Protocol Last Admin: 07/26/17 08:36 Dose: 2 units Levothyroxine Sodium (Synthroid Tab*) 200 mcg PO DAILY@0600 [facility] Last Admin: 07/26/17 05:35 Dose: 200 mcg Metoprolol Tartrate (Lopressor Tab*) 25 mg PO BID [facility] Last Admin: 07/26/17 08:36 Dose: 25 mg Mometasone Furoate/Formoterol Fumar (Dulera 200/5 Mdi*) 2 puff INH BID [facility] PRN Reason: Protocol Last Admin: 07/26/17 08:57 Dose: 2 puff Nystatin (Nystatin Cream*) 1 applic TOPICAL BID [facility] Last Admin: 07/26/17 08:41 Dose: 1 applic Oxycodone HCl (Roxycodone Tab*) 5 mg PO Q4H PRN PRN Reason: PAIN - SEVERE Last Admin: 07/26/17 05:35 Dose: 5 mg Pharmacy Consult (Vancomycin Per Pharmacy*) 1 note FOLLOW UP .VANC PER PHARMACY [facility] Pharmacy Profile Note (Vancomycin Trough Check) 1 note FOLLOW UP 1330 ONE Stop: 07/26/17 13:31 Phenyleph/Shark Oil/Min Oil/Petrol (Preparation H*) 1 applic TN Q8H PRN PRN Reason: PAIN Polyethylene Glycol/Electrolytes (Miralax*) 17 gm PO BID [facility] Last Admin: 07/26/17 08:35 Dose: 17 gm Rivaroxaban (Xarelto(*)) 20 mg PO DAILY [facility] Last Admin: 07/26/17 08:36 Dose: 20 mg Senna (Senokot Tab*) 1 tab PO BEDTIME PRN PRN Reason: CONSTIPATION Simethicone (Mylicon Tab*) 80 mg PO Q8H PRN PRN Reason: bloating Last Admin: 07/25/17 18:05 Dose: 80 mg Spironolactone (Aldactone Tab*) 50 mg PO DAILY [facility] Last Admin: 07/26/17 08:37 Dose: 50 mg Tamsulosin HCl (Flomax Cap*) 0.4 mg PO DAILY [facility] Last Admin: 07/26/17 08:36 Dose: 0.4 mg Vital Signs - 8 hr 07/26/17 07/26/17 07/26/17 04:12 05:35 07:34 Temperature 96.5 F 97.8 F Pulse Rate 72 71 Respiratory 16 18 16 Rate Blood Pressure 114/53 120/51 (mmHg) O2 Sat by Pulse 100 100 Oximetry 07/26/17 07/26/17 07/26/17 07:59 08:40 09:04 Temperature Pulse Rate 84 Respiratory 16 16 16 Rate Blood Pressure (mmHg) O2 Sat by Pulse 98 Oximetry Oxygen Devices in Use Now: Nasal Cannula Appearance: NAD, super morbid obesity. Eyes: No Scleral Icterus, PERRLA Neck: NL Appearance and Movements; NL JVP Respiratory: Symmetrical Chest Expansion and Respiratory Effort, - - anteriorly CTAB, no w/r/r Cardiovascular: NL Sounds; No Murmurs; No JVD, RRR, - - very large right chest mass with continued erythema, pitting edema Abdominal: - - super morbid obesity. ~11cm diamater paraumbilical hernia, nontender. right upper quadrant with edema and protusion and slight tenderness. Extremities: - - 2+ pitting edema Skin: - - as above Neurological: Alert and Oriented x 3, NL Sensation, NL Muscle Strength and Tone Nutrition: Taking PO's Result Diagrams: 07/26/17 08:30 07/26/17 08:30 Additional Lab and Data: Laboratory Results - last 24 hr 07/25/17 07/25/17 07/25/17 16:59 19:40 21:08 WBC RBC Hgb Hct MCV MCH MCHC RDW Plt Count MPV Neut % (Auto) Lymph % (Auto) [place] % (Auto) Eos % (Auto) Baso % (Auto) Absolute Neuts (auto) Absolute Lymphs (auto) Absolute Monos (auto) Absolute Eos (auto) Absolute Basos (auto) Absolute Nucleated RBC Nucleated RBC % Sodium 135 Potassium 4.6 Chloride 93 L Carbon Dioxide 40 H Anion Gap 2 BUN 35 H Creatinine 1.09 Est GFR ( Amer) 91.4 Est GFR (Non-Af Amer) 71.0 BUN/Creatinine Ratio 32.1 H Glucose 159 H POC Glucose (mg/dL) 132 H 165 H Calcium 9.2 Magnesium 1.5 L Vancomycin Trough 07/26/17 07/26/17 07/26/17 05:39 08:30 08:30 WBC 8.5 RBC 3.58 L Hgb 9.3 L Hct 31 L MCV 85 MCH 26 L MCHC 31 RDW 18 H Plt Count 349 MPV 7.6 Neut % (Auto) 75.8 Lymph % (Auto) 6.3 L [place] % (Auto) 7.7 H Eos % (Auto) 9.4 H Baso % (Auto) 0.8 Absolute Neuts (auto) 6.4 Absolute Lymphs (auto) 0.5 L Absolute Monos (auto) 0.7 Absolute Eos (auto) 0.8 H Absolute Basos (auto) 0.1 Absolute Nucleated RBC 0 Nucleated RBC % 0.2 Sodium 135 Potassium 4.4 Chloride 92 L Carbon Dioxide 40 H Anion Gap 3 BUN 35 H Creatinine 1.03 Est GFR ( Amer) 97.5 Est GFR (Non-Af Amer) 75.8 BUN/Creatinine Ratio 34.0 H Glucose 167 H POC Glucose (mg/dL) 142 H Calcium 9.5 Magnesium 1.7 L Vancomycin Trough 07/26/17 07/26/17 11:00 13:30 WBC RBC Hgb Hct MCV MCH MCHC RDW Plt Count MPV Neut % (Auto) Lymph % (Auto) [place] % (Auto) Eos % (Auto) Baso % (Auto) Absolute Neuts (auto) Absolute Lymphs (auto) Absolute Monos (auto) Absolute Eos (auto) Absolute Basos (auto) Absolute Nucleated RBC Nucleated RBC % Sodium Potassium Chloride Carbon Dioxide Anion Gap BUN Creatinine Est GFR ( Amer) Est GFR (Non-Af Amer) BUN/Creatinine Ratio Glucose POC Glucose (mg/dL) 206 H Calcium Magnesium Vancomycin Trough 14.8 Microbiology and Other Data: Microbiology 07/26/17 12:15 Tissue - Other Wound Gram Stain - Final 07/26/17 12:15 Tissue - Other Acid Fast Bacilli Smear - Final 07/24/17 16:08 Urine Urine Culture - Final No Growth (<1,000 CFU/mL) 07/24/17 17:43 Nasal Nasal Screen MRSA (PCR)(JEAN CARLOS) - Final Mrsa Not Detected Assess/Plan/Problems-Billing Assessment: 51 yo male PMH OHS, chronic hypoxic respiratory failure, diastolic CHF, IDDM, Afib, Osteomyelitis s/p right toe amputation, recent MRSA bacteremia on IV vancomycin p/w chest pressure, weight gain, rapidly enlarging right chest swelling near a previously known [id number] lipoma w/ some erythema. Suspected acute CHF exacerbation on lasix gtt. Cellulitis. Severe pHTN on ECHO, elevated DDimer. CT chest angio w/o e/o of central PE but extremely limited study. on Xarelto already for Afib - Patient Problems (1) Acute on chronic diastolic (congestive) heart failure Current Visit: No Status: Acute Priority: High Code(s): I50.33 - ACUTE ON CHRONIC DIASTOLIC (CONGESTIVE) HEART FAILURE SNOMED Code(s): 909452461 Comment: lasix 40mg IV q12. Daily weights. strict i/o spironolactone home was torsemide 20mg daily but had refused it for few weeks it sounds like. ECHO with severe pHTN, e/o right sided volume overload. DDimer also elevated. CT chest angiogram w/o e/o central PE but otherwise limited study. is on xarelto so it would be a treatment failure if so. may need RHC once more Euvolemic. Potential for extrinsic compression causing some of right sided failure? (2) Mass of right chest wall Current Visit: Yes Status: Acute Code(s): R22.2 - LOCALIZED SWELLING, MASS AND LUMP, TRUNK SNOMED Code(s): 334403979 Comment: in setting of previously known [id number] mass from Jun 2011 thougth at time lipoma. Rapid growth in last 4 weeks with now pain. ddx would include liposarcoma or other malignancy. Appreciate pathology assistance with tissue biopsy 07/26. no AFB or orgs on gram stain. No yash lymphadenoapthy on CT chest/abd/pelvis though limited study. (3) Anemia Current Visit: No Status: Acute Priority: High Onset Date: 06/10/14 Code (s): D64.9 - ANEMIA, UNSPECIFIED SNOMED Code(s): 742306858 Comment: normocytic but elevated RDW. On xarelto for Afib iron deficient, now on ferrous gluconate. iron 27% iron sat 9% ferritin 111. add stool guiac. (4) Cellulitis Current Visit: No Status: Acute Code(s): L03.90 - CELLULITIS, UNSPECIFIED SNOMED Code(s): 923809530 Comment: right chest with erythema and inflammatory skin changes on CT chest. continue vancomycin (on previously for 4-5 weeks), and now ceftriaxone. ID was consulted. appreciate recs. (5) Atrial fibrillation Current Visit: No Status: Acute Priority: High Code(s): I48.91 - UNSPECIFIED ATRIAL FIBRILLATION SNOMED Code(s): 09170111 Comment: Continue metoprolol; continue Xarelto replete lytes Mg>2, K>4. monitor closely given aggressive diuresis. (6) Chronic respiratory failure Current Visit: No Status: Acute Code(s): J96.10 - CHRONIC RESPIRATORY FAILURE, UNSP W HYPOXIA OR HYPERCAPNIA SNOMED Code(s): 20892808 Comment: Pt with chronic hypoxic respiratory failure secondary to COPD and obesity hypoventilation syndrome. also now volume overloaded 2/2 acute on chronic diastolic CHF. diruresis. Continue supplemental O2. (7) Morbid obesity Current Visit: No Status: Acute Code(s): E66.01 - MORBID (SEVERE) OBESITY DUE TO EXCESS CALORIES SNOMED Code(s): 459141820 Comment: Encourage diet modification. (8) Diabetes mellitus Current Visit: No Status: Acute Code(s): E11.9 - TYPE 2 DIABETES MELLITUS WITHOUT COMPLICATIONS SNOMED Code(s): 72143433 Comment: continue lantus 18U qhs. continue lispro 10 units with each meal standing in addition to sliding scale. A1C 7.3 on 07/12/17 (9) MRSA (methicillin resistant Staphylococcus aureus) Current Visit: No Status: Chronic Code(s): A49.02 - METHICILLIN RESIS STAPH INFECTION, UNSP SITE SNOMED Code(s): 338427944 Comment: MRSA bacteremia and wound infection in Jun 2017. has PICC 3/1 continue IV vancomycin. goal trough 15-20 ID consulted. dosing per pharmacy. Status and Disposition: medicine inpatient.
[2017-07-26] MEDS ORDERED: Magnesium Sulfate 2 GM IV IVPB ONE (12:00)
[2017-07-26] MEDS ORDERED: Vancomycin Trough Check NOTE FOLLOW UP ONE (13:30)
[2017-07-26] MEDS ORDERED: Iohexol 350* (CONTRAST) 500 ML MDV IV ONE (13:51)
[2017-07-26] MEDS ORDERED: Iodixanol 320 (CONTRAST) 100 ML SDV IV ONE (14:25)
[2017-07-26] MEDS: Vancomycin(*) 1,000 MG in NS 0.9% 250 ML* 250 ML IVPB SCH (15:01)
--- NOTE | 2017-07-26 15:09 | RAD ---
Indication: Abdominal pain, pulmonary embolus. Contrast:Administered 141.2 ml of OMNIPAQUE 350 mg/ml CTA of the chest, CT of the abdomen and pelvis was performed. There is poor opacification of the aorta and pulmonary arteries due to body habitus. No central PE is noted. Lobar, segmental vessels cannot be evaluated. No evidence of aortic dissection is noted. The heart demonstrates no pericardial effusion. Large right pleural effusion with right lower lobe atelectasis is noted. Interstitial edema consistent with vascular congestion is noted. The heart demonstrates no pericardial effusion CT of the abdomen and pelvis demonstrates liver to be normal in size. There is marked decreases sensitivity for lesion due to streak artifact. The spleen is normal in size. No adrenal masses are noted. The kidneys demonstrate no hydronephrosis. No obvious masses are noted although the pelvis is severely limited due to streak artifact from body habitus. No dilated loops of bowel. Again noted is large right axilla mass. IMPRESSION: The study is severely limited due to body habitus with right axilla mass. No evidence of aortic dissection is noted. No evidence of filling defect is noted in the main left and right pulmonary artery. Lobar vessels and smaller vessels cannot BE fully evaluated. No obvious space-occupying lesion is noted in the abdomen and pelvis although evaluation is severely limited due to patient's body habitus. Large right pleural effusion with right lower lobe atelectasis.
--- NOTE | 2017-07-26 17:02 | CONS ---
CONSULTATION REPORT: DATE OF CONSULT: 07/26/17 REQUESTING PHYSICIAN: Dr. Cervantes. CONSULTING SERVICE: Infectious Disease. REASON FOR CONSULTATION: Right chest cellulitis. IMPRESSION: 1. Right chest and breast lymphedema with cellulitis. On the CT scan of June 2016, there was a 10 x 15 cm mass prescribed as a lipoma. I am concerned now that there is either malignant component or underlying abscess based on CT findings and on the degree of edema in his right chest. 2. Left foot chronic osteomyelitis, status post incision and debridement in June 2016, currently on vancomycin. 3. Super morbid obesity. 4. Diabetes with neuropathy. RECOMMENDATIONS: 1. Continue vancomycin, goal trough 15 to 20 for his left foot infection. I agree with adding some gram-negative coverage in the form of ceftriaxone for the cellulitis of the right chest. 2. Interventional Radiology consultation to consider biopsying of the underlying mass to rule out malignancy. HISTORY OF PRESENT ILLNESS: This is a 51-year-old male with super morbid obesity with a history of what was described as a lipoma in June [address] that was 10 x 15 cm at that time. Now he has a large right chest swelling, redness and pain where he cannot even move his arm all around, it is so big. He has noted some swelling there over the last 3 or 4 years and then over the last month it has grown rapidly. He has been on vancomycin for the last 6 weeks for his left foot infection without fever, chills, or sweats. His left foot incision is intact. Because of chest pain, he came to the hospital. He was found to have swelling in his right chest. CT scan was done and showed inflammatory change to the right breast, anterior chest suggesting cellulitis and underlying lipoma. There is a pleural effusion with atelectasis. He has had no cough or shortness of breath. PAST MEDICAL HISTORY: 1. Super morbid obesity. 2. Insulin-dependent diabetes with neuropathy. 3. Right second toe amputation. 4. Left ankle osteomyelitis, status post incision and debridement, currently on vancomycin. 5. Obstructive sleep apnea, on CPAP. 6. Chronic hypoxemic respiratory failure due to obesity hypoventilation. 7. DVT/PE. 8. Hyperlipidemia. 9. Stage 3 chronic kidney disease. 10. Hypertension. 11. Peripheral vascular disease. 12. Hypothyroidism. 13. Arthritis. 14. Gout. MEDICATIONS: 1. Tylenol. 2. Albuterol. 3. Allopurinol. 4. Lipitor. 5. Ceftriaxone. 6. Cholecalciferol. 7. Dextrose. 8. Ferrous gluconate. 9. Lasix. 10. Levothyroxine. 11. Rivaroxaban. 12. Senna. 13. Simethicone. 14. Vancomycin 1 g once a day. ALLERGIES: TIGECYCLINE, unknown reaction. FAMILY HISTORY: Mother alive with fibromyalgia at 72 and dad alive at 76 with diabetes. SOCIAL HISTORY: He has been living at [facility], [place]. REVIEW OF SYSTEMS: A 14-point review of systems was negative except as noted above. PHYSICAL EXAM: Vital Signs: Temperature is 37, heart rate is 79, respiratory rate 16, blood pressure 120/51, oxygen saturation 98% on 5 L. In general, he is awake, not in distress. Neurologic: He is oriented x3. Follows all commands. He has decreased sensation to light touch in both feet. HEENT: There is no conjunctival hemorrhage. There is no mass. Oropharynx: Without lesions. Heart: Regular rate and rhythm without murmurs, rubs, or gallops. Lungs: Clear to auscultation bilaterally. Abdomen: Soft, obese with right- sided mild tenderness. There are bowel sounds present. Chest: Right chest with lymphedema, edema, warmth, tenderness. Skin: There is no rash or splinter hemorrhages. Musculoskeletal: Left ankle diffuse edema. Medial incision is intact. There is no erythema or warmth. LABORATORY DATA: White blood cell count 8, hemoglobin 9, platelets 349,000. Creatinine 1. CRP is 14. Please see impressions and recommendations outlined above, which I have discussed with Dr. Cervantes. Thank you for asking me to see Mr. Anderson in consultation. [id number]/[facility] #: [id number] VIGNESH
[2017-07-26] MEDS: cefTRIAXone 1000 MG SYRINGE IVPB Q24H IVPB SCH ×2 (17:32)
[2017-07-26] MEDS: Furosemide IV* 10 MG/ML 10 ML VIAL (100 MG) IV SCH (17:32)
[2017-07-26] MEDS: Insulin GLARGINE(*) 1 UNITS UNIT SUBCUT SCH (21:43)
[2017-07-27] MEDS: oxyCODONE TAB* 5 MG TAB PO PRN ×3 (05:44→19:29)
[2017-07-27] MEDS: Levothyroxine TAB* 100 MCG TAB PO SCH (05:44)
[2017-07-27] MEDS: Acetaminophen TAB* 325 MG PO PRN ×3 (05:45→19:29)
[2017-07-27] MEDS: Albuterol 2.5 MG/3 ML NEB.SOL* (0.083%) INH PRN ×2 (07:12→19:35)
[2017-07-27] MEDS: Mometasone/Formoter 200/5 MDI INH SCH ×2 (07:12→19:35)
[2017-07-27 08:18] LABS: INR 1.31 (0.77-1.02)
[2017-07-27 08:28] LABS: ABS Basophils 0.1 10^3/ul (0-0.2); ABS Eosinophils 0.9 10^3/ul (0-0.6); ABS Lymphocytes 0.5 10^3/ul (1.0-4.8); ABS Monocytes 0.6 10^3/ul (0-0.8); ABS Nucleated RBC 0 10^3/ul; Corrected Retic Count 1.2 % (0.5-1.5); Eosinophil % 10.7 % (0-6); Hematocrit 30 % (42-52); Hematocrit for Retic CNT 30 % (42-52); Hemoglobin 9.3 g/dl (14.0-18.0); Immature Retic Fraction 0.53; Lymphocyte % 6.3 % (25-47); Mean Corpuscular HGB Conc 31 g/dl (31-36); Mean Corpuscular Hemoglobin 26 pg (27-31); Mean Corpuscular Volume 85 fL (80-94); Mean Platelet Volume 7.3 um3 (7.4-10.4); Nucleated Red Blood Cells % 0; Platelet Count 363 10^3/ul (150-450); RBC Retic Count 3.53 10^6/ul (4.6-6.2); Red Blood Count 3.53 10^6/ul (4.0-5.4); Red Cell Distribution Width 19 % (10.5-15); White Blood Count 8.1 10^3/ul (3.5-10.8)
[2017-07-27 08:31] LABS: EGFR Non-African American 72.6 (>60)
[2017-07-27] MEDS: Insulin LISPRO* 1 UNITS UNIT SUBCUT SCH ×6 (08:49→18:12)
[2017-07-27] MEDS: Furosemide IV* 10 MG/ML 10 ML VIAL (100 MG) IV SCH ×2 (08:55→18:03)
[2017-07-27] MEDS: Allopurinol TAB* 300 MG PO SCH (08:56)
[2017-07-27] MEDS: Spironolactone TAB* 25 MG PO SCH (08:56)
[2017-07-27] MEDS: Ferrous Gluconate TAB* 324 MG TAB PO SCH (08:56)
[2017-07-27] MEDS: Polyethylene Glycol 3350* 17 GM PACKET PO SCH ×3 (08:56→22:17)
[2017-07-27] MEDS: Atorvastatin* 40 MG TAB PO SCH (08:56)
[2017-07-27] MEDS: Metoprolol Tartrate TAB* 25 MG PO SCH ×2 (08:56→22:09)
[2017-07-27] MEDS: Nystatin CREAM* 15 GM TUBE TOPICAL SCH ×2 (08:56→22:12)
[2017-07-27] MEDS: Cholecalciferol TAB* 1000 UNITS PO SCH (08:56)
[2017-07-27] MEDS: Tamsulosin CAP* 0.4 MG PO SCH (08:56)
[2017-07-27] MEDS: Rivaroxaban TAB(*) 20 MG TAB PO SCH (08:56)
[2017-07-27] MEDS ORDERED: Magnesium Sulfate 2 GM IV* 2 GM/50 ML BAG IVPB ONE (09:04)
--- NOTE | 2017-07-27 11:45 | PN ---
Subjective Date of Service: 07/27/17 Interval History: depressed about hospitalization. Met with Artificial Breeding Technician with positive effect. 2.5 cc serosanguinous fluid yesterday from right chest mass. GS w/o orgs had BM thinks right upper quadrant slightly bigger. retained blue suture removed from medial left foot 3L net negative Objective Active Medications: Acetaminophen (Tylenol Tab*) 325 mg PO Q6H PRN PRN Reason: PAIN Last Admin: 07/27/17 05:45 Dose: 325 mg Albuterol (Ventolin 2.5 Mg/3 Ml Neb.Christy*) 2.5 mg INH Q4H PRN PRN Reason: SOB/WHEEZING Last Admin: 07/27/17 07:12 Dose: 2.5 mg Allopurinol (Zyloprim Tab*) 300 mg PO DAILY [facility] Last Admin: 07/27/17 08:56 Dose: 300 mg Atorvastatin Calcium (Lipitor*) 40 mg PO DAILY [facility] Last Admin: 07/27/17 08:56 Dose: 40 mg Cholecalciferol (Vitamin D Tab*) 1,000 units PO DAILY [facility] Last Admin: 07/27/17 08:56 Dose: 1,000 units Dextrose (D50w Syringe 50 Ml*) 12.5 gm IV PUSH .FOR FS < 60 - SS PRN PRN Reason: FS < 60 Ferrous Gluconate (Fergon Tab*) 324 mg PO DAILY [facility] Last Admin: 07/27/17 08:56 Dose: 324 mg Fluticasone Propionate (Flonase Nasal [place] 50mcg*) 2 spray BOTH NARES DAILY PRN PRN Reason: Allergy Symptoms Last Admin: 07/26/17 08:41 Dose: 2 spray Furosemide (Lasix Iv*) 60 mg IV 0800,1700 [facility] Last Admin: 07/27/17 08:55 Dose: 60 mg Guaifenesin (Mucinex*) 600 mg PO Q12H PRN PRN Reason: congestion Heparin Sodium (Porcine) (Heparin Flush Picc/Ml/Cvc(*)) 1 - 3 ml FLUSH 0600, 1800 [facility] PRN Reason: Protocol Last Admin: 07/27/17 05:44 Dose: 1 ml Vancomycin HCl 1,000 mg/ (Sodium Chloride) 250 mls @ 166.667 mls/hr IVPB Q24H [facility] Last Admin: 07/26/17 15:01 Dose: 166.667 mls/hr Ceftriaxone Sodium 1,000 mg/ (Sterile Water) 10 mls @ 40 mls/hr IVPB Q24H [facility] Last Admin: 07/26/17 17:32 Dose: 40 mls/hr Insulin Glargine (Lantus(*)) 18 units SUBCUT BEDTIME [facility] Last Admin: 07/26/17 21:43 Dose: 18 units Insulin Human Lispro (Humalog*) 10 units SUBCUT TID PC [facility] Last Admin: 07/27/17 08:49 Dose: Not Given Insulin Human Lispro (Humalog*) 0 units SUBCUT ACHS [facility] PRN Reason: Protocol Last Admin: 07/27/17 08:56 Dose: 2 units Levothyroxine Sodium (Synthroid Tab*) 200 mcg PO DAILY@0600 [facility] Last Admin: 07/27/17 05:44 Dose: 200 mcg Metoprolol Tartrate (Lopressor Tab*) 25 mg PO BID [facility] Last Admin: 07/27/17 08:56 Dose: 25 mg Mometasone Furoate/Formoterol Fumar (Dulera 200/5 Mdi*) 2 puff INH BID [facility] PRN Reason: Protocol Last Admin: 07/27/17 07:12 Dose: 2 puff Nystatin (Nystatin Cream*) 1 applic TOPICAL BID [facility] Last Admin: 07/27/17 08:56 Dose: 1 applic Oxycodone HCl (Roxycodone Tab*) 5 mg PO Q4H PRN PRN Reason: PAIN - SEVERE Last Admin: 07/27/17 05:44 Dose: 5 mg Pharmacy Consult (Vancomycin Per Pharmacy*) 1 note FOLLOW UP .VANC PER PHARMACY [facility] Phenyleph/Shark Oil/Min Oil/Petrol (Preparation H*) 1 applic TN Q8H PRN PRN Reason: PAIN Polyethylene Glycol/Electrolytes (Miralax*) 17 gm PO BID [facility] Last Admin: 07/27/17 08:56 Dose: 17 gm Rivaroxaban (Xarelto(*)) 20 mg PO DAILY [facility] Last Admin: 07/27/17 08:56 Dose: 20 mg Senna (Senokot Tab*) 1 tab PO BEDTIME PRN PRN Reason: CONSTIPATION Simethicone (Mylicon Tab*) 80 mg PO Q8H PRN PRN Reason: bloating Last Admin: 07/25/17 18:05 Dose: 80 mg Spironolactone (Aldactone Tab*) 50 mg PO DAILY [facility] Last Admin: 07/27/17 08:56 Dose: 50 mg Tamsulosin HCl (Flomax Cap*) 0.4 mg PO DAILY [facility] Last Admin: 07/27/17 08:56 Dose: 0.4 mg Vital Signs - 8 hr 07/27/17 07/27/17 07/27/17 04:30 05:44 07:15 Temperature Pulse Rate 77 73 Respiratory 18 16 Rate Blood Pressure (mmHg) O2 Sat by Pulse 100 98 Oximetry 07/27/17 07/27/17 08:00 08:09 Temperature 98.5 F Pulse Rate 74 Respiratory 16 16 Rate Blood Pressure 121/53 (mmHg) O2 Sat by Pulse 100 Oximetry Oxygen Devices in Use Now: Nasal Cannula Appearance: NAD, super morbid obesity. Eyes: No Scleral Icterus, PERRLA Ears/Nose/Mouth/Throat: NL Teeth, Lips, Gums, Mucous Membranes Moist Neck: NL Appearance and Movements; NL JVP Respiratory: Symmetrical Chest Expansion and Respiratory Effort, - - anteriorly CTAB Abdominal: - - skin wall edema RUQ, slightly tender. lower pannus edema Extremities: - - 2+ pitting edema Skin: No Rash or Ulcers Neurological: Alert and Oriented x 3, NL Sensation, NL Muscle Strength and Tone Nutrition: Taking PO's Result Diagrams: 07/27/17 07:55 07/27/17 07:55 Additional Lab and Data: Laboratory Results - last 24 hr 07/26/17 07/27/17 07/27/17 21:12 05:58 07:55 WBC 8.1 RBC 3.53 L RBC (Retic) 3.53 L Hgb 9.3 L Hct 30 L HCT (Retic) 30 L MCV 85 MCH 26 L MCHC 31 RDW 19 H Plt Count 363 MPV 7.3 L Neut % (Auto) 74.2 Lymph % (Auto) 6.3 L [place] % (Auto) 7.5 H Eos % (Auto) 10.7 H Baso % (Auto) 1.3 Absolute Neuts (auto) 6.0 Absolute Lymphs (auto) 0.5 L Absolute Monos (auto) 0.6 Absolute Eos (auto) 0.9 H Absolute Basos (auto) 0.1 Absolute Nucleated RBC 0 Nucleated RBC % 0 ESR 61 H Retic Count, Calc 1.8 H Corrected Retic Count 1.2 Retic Shift Factor 1.5 Retic Production Index 0.80 Immature Retic Fraction 0.53 Mean Retic Volume 117.1 INR (Anticoag Therapy) Sodium Potassium Chloride Carbon Dioxide Anion Gap BUN Creatinine Est GFR ( Amer) Est GFR (Non-Af Amer) BUN/Creatinine Ratio Glucose POC Glucose (mg/dL) 196 H 162 H Calcium Magnesium Lactate Dehydrogenase Vitamin B12 Folate Vancomycin Trough 07/27/17 07/27/17 07/27/17 07:55 07:55 11:33 WBC RBC RBC (Retic) Hgb Hct HCT (Retic) MCV MCH MCHC RDW Plt Count MPV Neut % (Auto) Lymph % (Auto) [place] % (Auto) Eos % (Auto) Baso % (Auto) Absolute Neuts (auto) Absolute Lymphs (auto) Absolute Monos (auto) Absolute Eos (auto) Absolute Basos (auto) Absolute Nucleated RBC Nucleated RBC % ESR Retic Count, Calc Corrected Retic Count Retic Shift Factor Retic Production Index Immature Retic Fraction Mean Retic Volume INR (Anticoag Therapy) 1.31 H Sodium 135 Potassium 4.6 Chloride 91 L Carbon Dioxide 42 H* Anion Gap 2 BUN 36 H Creatinine 1.07 Est GFR ( Amer) 93.3 Est GFR (Non-Af Amer) 72.6 BUN/Creatinine Ratio 33.6 H Glucose 142 H POC Glucose (mg/dL) 191 H Calcium 9.5 Magnesium 1.8 L Lactate Dehydrogenase 117 L Vitamin B12 559 Folate 9.32 Vancomycin Trough 07/27/17 07/27/17 14:10 16:44 WBC RBC RBC (Retic) Hgb Hct HCT (Retic) MCV MCH MCHC RDW Plt Count MPV Neut % (Auto) Lymph % (Auto) [place] % (Auto) Eos % (Auto) Baso % (Auto) Absolute Neuts (auto) Absolute Lymphs (auto) Absolute Monos (auto) Absolute Eos (auto) Absolute Basos (auto) Absolute Nucleated RBC Nucleated RBC % ESR Retic Count, Calc Corrected Retic Count Retic Shift Factor Retic Production Index Immature Retic Fraction Mean Retic Volume INR (Anticoag Therapy) Sodium Potassium Chloride Carbon Dioxide Anion Gap BUN Creatinine Est GFR ( Amer) Est GFR (Non-Af Amer) BUN/Creatinine Ratio Glucose POC Glucose (mg/dL) 181 H Calcium Magnesium Lactate Dehydrogenase Vitamin B12 Folate Vancomycin Trough 15.0 Microbiology and Other Data: Microbiology 07/26/17 12:15 Tissue - Other Wound Gram Stain - Final 07/26/17 12:15 Tissue - Other Tissue Culture - Preliminary No Growth Day 1 07/26/17 12:15 Tissue - Other Acid Fast Bacilli Smear - Final 07/24/17 16:08 Urine Urine Culture - Final No Growth (<1,000 CFU/mL) 07/24/17 17:43 Nasal Nasal Screen MRSA (PCR)(JEAN CARLOS) - Final Mrsa Not Detected Assess/Plan/Problems-Billing Assessment: 51 yo male PMH OHS, chronic hypoxic respiratory failure, diastolic CHF, IDDM, Afib, Osteomyelitis s/p right toe amputation, recent MRSA bacteremia on IV vancomycin p/w chest pressure, weight gain, rapidly enlarging right chest swelling near a previously known [id number] lipoma w/ some erythema. Acute diastolic CHF exacerbation in setting of stopping torsemide and now Severe pHTN on ECHO. elevated DDimer. CT chest angio w/o e/o of central PE but extremely limited study. on Xarelto already for Afib - Patient Problems (1) Acute on chronic diastolic (congestive) heart failure Current Visit: No Status: Acute Priority: High Code(s): I50.33 - ACUTE ON CHRONIC DIASTOLIC (CONGESTIVE) HEART FAILURE SNOMED Code(s): 683016682 Comment: lasix 40mg IV q12. Daily weights. strict i/o spironolactone home was torsemide 20mg daily but had refused it for few weeks it sounds like. ECHO with severe pHTN, e/o right sided volume overload. DDimer also elevated. CT chest angiogram w/o e/o central PE but otherwise limited study. is on xarelto so it would be a treatment failure if so. likely will need RHC once more Euvolemic. Dr Medina consulted (also for consideration of right pleural fluid diagnostic thora) (2) Mass of right chest wall Current Visit: Yes Status: Acute Code(s): R22.2 - LOCALIZED SWELLING, MASS AND LUMP, TRUNK SNOMED Code(s): 101778206 Comment: in setting of previously known [id number] mass from Jun 2011 thought at time lipoma. Rapid growth in last 4 weeks with now pain. ddx would include liposarcoma or other malignancy. Appreciate pathology assistance with tissue biopsy 07/26. no AFB or orgs on gram stain. However only serosanguinous fluid obtained with small needle. May need IR guided biopsy to sample the actual lipoma. No yash lymphadenoapthy on CT chest/abd/pelvis though limited study. (3) Anemia Current Visit: No Status: Acute Priority: High Onset Date: 06/10/14 Code (s): D64.9 - ANEMIA, UNSPECIFIED SNOMED Code(s): 760989552 Comment: normocytic but elevated RDW. On xarelto for Afib iron deficient, now on ferrous gluconate. iron 27% iron sat 9% ferritin 111. add stool guiac. (4) Cellulitis Current Visit: No Status: Acute Code(s): L03.90 - CELLULITIS, UNSPECIFIED SNOMED Code(s): 790606012 Comment: right chest with erythema and inflammatory skin changes on CT chest. continue vancomycin (on previously for 4-5 weeks), and now ceftriaxone. ID was consulted. appreciate recs. (5) Atrial fibrillation Current Visit: No Status: Acute Priority: High Code(s): I48.91 - UNSPECIFIED ATRIAL FIBRILLATION SNOMED Code(s): 35174006 Comment: Continue metoprolol; continue Xarelto replete lytes Mg>2, K>4. monitor closely given aggressive diuresis. (6) Chronic respiratory failure Current Visit: No Status: Acute Code(s): J96.10 - CHRONIC RESPIRATORY FAILURE, UNSP W HYPOXIA OR HYPERCAPNIA SNOMED Code(s): 44152579 Comment: Pt with chronic hypoxic respiratory failure secondary to COPD and obesity hypoventilation syndrome. Now also severe pHTN. Dr. Medina consuled. also now volume overloaded 2/2 acute on chronic diastolic CHF. diruresis. Continue supplemental O2. (7) Morbid obesity Current Visit: No Status: Acute Code(s): E66.01 - MORBID (SEVERE) OBESITY DUE TO EXCESS CALORIES SNOMED Code(s): 828839800 Comment: Encourage diet modification. (8) Diabetes mellitus Current Visit: No Status: Acute Code(s): E11.9 - TYPE 2 DIABETES MELLITUS WITHOUT COMPLICATIONS SNOMED Code(s): 76067137 Comment: continue lantus 18U qhs. continue lispro 10 units with each meal (had been refusing but getting sliding scale instead) A1C 7.3 on 07/12/17 (9) MRSA (methicillin resistant Staphylococcus aureus) Current Visit: No Status: Chronic Code(s): A49.02 - METHICILLIN RESIS STAPH INFECTION, UNSP SITE SNOMED Code(s): 685704872 Comment: MRSA bacteremia and wound infection in Jun 2017. has PICC 07/05 continue IV vancomycin. goal trough 15-20 ID consulted. dosing per pharmacy. (10) Pleural effusion Current Visit: Yes Status: Acute Code(s): J90 - PLEURAL EFFUSION, NOT ELSEWHERE CLASSIFIED SNOMED Code(s): 43288803 Comment: in setting of severe pHTN, diastolic failure. Dr. Medina consulted for potential diagnostic thoracentesis. Status and Disposition: medicine inpatient.
--- NOTE | 2017-07-27 14:22 | RAD ---
Indication fluid collection Real-time sonography of the chest wall and abdominal wall was performed. Diffuse edema is noted. No drainable fluid collections are noted. IMPRESSION: DIFFUSE EDEMA IS NOTED IN THE PALPABLE AREA. NO DRAINABLE COLLECTION.
[2017-07-27] MEDS: Vancomycin(*) 1,000 MG in NS 0.9% 250 ML* 250 ML IVPB SCH (15:19)
--- NOTE | 2017-07-27 17:07 | PN ---
Progress Note - Progress Note Date of Service: 07/27/17 SOAP: Subjective: CC: swelling HPI: 51 year old man with morbid obesity: massive swelling of right chest and right abdomen, underlying large lipoma on CT. Worsening swelling in abdomen, chest is stable and less red. No fever or diarrhea. Objective: Vital Signs Temp 37.3 C 07/27/17 15:31 Pulse 72 07/27/17 15:31 Resp 20 07/27/17 16:55 BP 112/49 07/27/17 15:31 Pulse Ox 99 07/27/17 15:31 Intake & Output 07/26/17 07/27/17 07/27/17 18:59 06:59 18:59 Intake Total 089 176 6223 Output Total 2950 2024 2349 Balance -1980 -1245 -509 Weight 514 lb 512 lb 3.2 oz Intake: IV Fluids 25 Magnesium 25 IVPB 155 61 Magnesium 155 NS (0.9%) 61 Oral 425 276 2152 Output: Urine 0 [place] 2949 2024 2349 Other: Estimated Stool Amount Large Gen:awake, no distress HEENT:PERRL, MMM Heart:RRR no murmur Lungs:CTA BL Abd:+BS NTND soft Skin: diffuse right chest and abdomen edema, pitting MSK: left ankle edema, incision healed 07/27/17 07/27/17 07/27/17 07:55 07:55 11:33 WBC RBC RBC (Retic) Hgb Hct HCT (Retic) MCV MCH MCHC RDW Plt Count MPV Neut % (Auto) Lymph % (Auto) [place] % (Auto) Eos % (Auto) Baso % (Auto) Absolute Neuts (auto) Absolute Lymphs (auto) Absolute Monos (auto) Absolute Eos (auto) Absolute Basos (auto) Absolute Nucleated RBC Nucleated RBC % ESR Retic Count, Calc Corrected Retic Count Retic Shift Factor Retic Production Index Immature Retic Fraction Mean Retic Volume INR (Anticoag Therapy) 1.31 H D-Dimer, Quantitative Sodium 135 Potassium 4.6 Chloride 91 L Carbon Dioxide 42 H* Anion Gap 2 BUN 36 H Creatinine 1.07 Est GFR ( Amer) 93.3 Est GFR (Non-Af Amer) 72.6 BUN/Creatinine Ratio 33.6 H Glucose 142 H POC Glucose (mg/dL) 191 H Lactic Acid Calcium 9.5 Magnesium 1.8 L Iron TIBC % Saturation Unsat Iron Binding Transferrin Ferritin Total Bilirubin AST ALT Alkaline Phosphatase Lactate Dehydrogenase 117 L Troponin I C-Reactive Protein B-Natriuretic Peptide Total Protein Albumin Globulin Albumin/Globulin Ratio Vitamin B12 559 Folate 9.32 Urine Color Urine Appearance Urine pH Ur Specific [place] Urine Protein Urine Ketones Urine Blood Urine Nitrate Urine Bilirubin Urine Urobilinogen Ur Leukocyte Esterase Urine WBC (Auto) Urine RBC (Auto) Urine Bacteria Hyaline Casts Urine Glucose Vancomycin Trough Assessment: 1. Dependent edema right chest and abdominal wall ?combination of low albumin, volume overload, and pulmonary hypertension 2. 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 pleural effusion 4. super morbid obesity 5. left foot chronic osteomyelitis, due to MRSA on vancomycin Plan: 1. continue vancomycin day goal tr 15-20 2. continue ceftriaxone 3. diuresis, thoracentesis Discussed with Dr Cervantes
[2017-07-27] MEDS: cefTRIAXone 1000 MG SYRINGE IVPB Q24H IVPB SCH ×2 (18:09)
[2017-07-27] MEDS: Insulin GLARGINE(*) 1 UNITS UNIT SUBCUT SCH (22:08)
[2017-07-28] MEDS: Levothyroxine TAB* 100 MCG TAB PO SCH (05:31)
[2017-07-28] MEDS: oxyCODONE TAB* 5 MG TAB PO PRN (05:46)
[2017-07-28] MEDS: Acetaminophen TAB* 325 MG PO PRN (05:46)
[2017-07-28] MEDS: Albuterol 2.5 MG/3 ML NEB.SOL* (0.083%) INH PRN (07:30)
[2017-07-28] MEDS: Mometasone/Formoter 200/5 MDI INH SCH ×2 (07:35→20:02)
[2017-07-28] MEDS: Insulin LISPRO* 1 UNITS UNIT SUBCUT SCH ×3 (09:01→18:26)
[2017-07-28] MEDS: Furosemide IV* 10 MG/ML 10 ML VIAL (100 MG) IV SCH ×2 (09:01→18:27)
[2017-07-28] MEDS: Allopurinol TAB* 300 MG PO SCH (09:16)
[2017-07-28] MEDS: Rivaroxaban TAB(*) 20 MG TAB PO SCH (09:17)
[2017-07-28] MEDS: Ferrous Gluconate TAB* 324 MG TAB PO SCH (09:17)
[2017-07-28] MEDS: Cholecalciferol TAB* 1000 UNITS PO SCH (09:17)
[2017-07-28] MEDS: Tamsulosin CAP* 0.4 MG PO SCH (09:18)
[2017-07-28] MEDS: Spironolactone TAB* 25 MG PO SCH (09:18)
[2017-07-28] MEDS: Metoprolol Tartrate TAB* 25 MG PO SCH ×2 (09:18→21:06)
[2017-07-28] MEDS: Atorvastatin* 40 MG TAB PO SCH (09:18)
[2017-07-28] MEDS: Nystatin CREAM* 15 GM TUBE TOPICAL SCH ×2 (09:19→21:18)
[2017-07-28] MEDS: Polyethylene Glycol 3350* 17 GM PACKET PO SCH ×2 (09:19→21:06)
[2017-07-28 10:02] LABS: ABS Basophils 0.1 10^3/ul (0-0.2); ABS Eosinophils 0.8 10^3/ul (0-0.6); ABS Lymphocytes 0.5 10^3/ul (1.0-4.8); ABS Monocytes 0.6 10^3/ul (0-0.8); ABS Neutrophils 6.2 10^3/ul (1.5-7.7); ABS Nucleated RBC 0 10^3/ul; Eosinophil % 9.2 % (0-6); Hematocrit 30 % (42-52); Hemoglobin 9.3 g/dl (14.0-18.0); Lymphocyte % 6.4 % (25-47); Mean Corpuscular HGB Conc 31 g/dl (31-36); Mean Corpuscular Hemoglobin 27 pg (27-31); Mean Corpuscular Volume 85 fL (80-94); Mean Platelet Volume 7.5 um3 (7.4-10.4); Nucleated Red Blood Cells % 0; Platelet Count 349 10^3/ul (150-450); Red Blood Count 3.53 10^6/ul (4.0-5.4); Red Cell Distribution Width 18 % (10.5-15); White Blood Count 8.2 10^3/ul (3.5-10.8)
[2017-07-28 10:13] LABS: EGFR Non-African American 64.2 (>60)
[2017-07-28] MEDS ORDERED: Magnesium Sulfate 2 GM IV IVPB ONE (12:00)
[2017-07-28] MEDS: Simethicone TAB* 80 MG TAB.CHEW PO PRN (12:28)
[2017-07-28] MEDS ORDERED: Magnesium Sulfate 1 GM IV* 1 GM/100 ML BAG IV ONE (13:00)
--- NOTE | 2017-07-28 13:43 | ED ---
Megan Obrien Gabriel, scribed for Pardeep Garcia MD on 07/24/17 at 1529 . HPI Chest Pain - HPI Summary HPI Summary: This patient is a 51 year old M BIBA to [facility] accompanied by his with a chief complaint of CP since he woke up this morning. Pt lives at [facility] and he had just [facility]. The patient rates the constant pain 4/10 in severity and states it radiates into his left neck and shoulder. Symptoms alleviated spontaneously, they are slowing resolving. Patient reports 40lb gain in the last week, trouble urinating, chills, diaphoresis, and a productive cough with brown phlegm. - History of Current Complaint Chief Complaint: EDChestPainROMI Time Seen by Provider: 07/24/17 15:26 Hx Obtained From: Patient Onset/Duration: Started Hours Ago, Still Present Timing: Constant Initial Severity: Mild Current Severity: Mild Pain Intensity: 4 Pain Scale Used: 0-10 Numeric Chest Pain Radiates: Yes Chest Pain Radiates To:: Shoulder, Neck Associated Signs and Symptoms: Positive: Other: - 40lb gain in the last week, trouble urinating, and a productive cough with brown phlegm. chills, sweats - Additional Pertinent History Primary Care Physician: [id number] - Allergy/Home Medications Allergies/Adverse Reactions: Allergies Allergy/AdvReac Type Severity Reaction Status Date / Time tigecycline Allergy Rash Verified 06/25/17 13:46 PMH/Surg Hx/FS Hx/Imm Hx Endocrine/Hematology History: Reports: Hx Diabetes, Hx Thyroid Disease, Hx Anemia Cardiovascular History: Reports: Hx Atrial Fibrillation, Hx Congestive Heart Failure, Hx Deep Vein Thrombosis, Hx Embolism, Hx Hypercholesterolemia, Hx Hypertension, Hx Peripheral Vascular Disease, Other Cardiovascular Problems/ Disorders - cardiomyopathy, IDDM, CHRONIC RENAL FAILURE, MORBID OBESITY Denies: Hx Pacemaker/ICD Respiratory History: Reports: Hx Asthma, Hx Chronic Obstructive Pulmonary Disease (COPD) - on 5L home O2, Hx Pneumonia, Hx Pulmonary Embolism, Hx Sleep Apnea - compliant with cpap, Other Respiratory Problems/Disorders - SLEEP APNEA History: Reports: Hx Chronic Renal Failure Comment Only: Other Problems/Disorders - CKD Musculoskeletal History: Reports: Hx Arthritis, Hx Back Problems, Hx Gout Sensory History: Denies: Hx Cataracts, Hx Contacts or Glasses, Hx Eye Injury, Hx Hearing Aid, Hx Hearing Problem, Other Sensory Impairments Opthamlomology History: Denies: Hx Cataracts, Hx Contacts or Glasses, Hx Eye Injury, Other Sensory Impairments Psychiatric History: Denies: Hx Panic Disorder - Surgical History Surgery Procedure, Year, and Place: WOUND DEBRIDING 1989, R 2nd toe amputation, 2017 - Immunization History Date of Tetanus Vaccine: utd Date of Influenza Vaccine: fall 2014 Infectious Disease History: No Infectious Disease History: Reports: Hx of Known/Suspected MRSA Denies: Hx Shingles, Hx Tuberculosis, History Other Infectious Disease, Traveled Outside the [place] in Last 30 Days - Family History Known Family History: Positive: Cardiac Disease, Diabetes - Social History Occupation: Unemployed [facility] Alcohol Use: None Hx Substance Use: No Substance Use Type: Reports: None Hx Tobacco Use: Yes Smoking Status (MU): Former Smoker Type: Cigars Review of Systems Positive: Chills, Skin Diaphoresis, Other - 40lb gain in the last week. Negative: Fever Negative: Erythema Negative: Sore Throat Positive: Chest Pain Positive: Cough. Negative: Shortness Of Breath Negative: Abdominal Pain, Vomiting, Nausea Genitourinary: Other - trouble urinating Negative: dysuria, hematuria Negative: Myalgia, Edema Negative: Rash Neurological: Negative - dizziness All Other Systems Reviewed And Are Negative: Yes Physical Exam - Summary Physical Exam Summary: Constitutional: morbidly obese male, Alert. (-) Distressed Skin: Warm, Dry HENT: Normocephalic; Atraumatic Eyes: Conjunctiva normal Neck: Musculoskeletal ROM normal neck. (-) JVD, (-) Stridor, (-) Tracheal deviation Cardio: Rhythm regular, rate normal, Heart sounds normal; Intact distal pulses; The pedal pulses are 2+ and symmetric. Radial pulses are 2+ and symmetric. (-) Murmur Pulmonary/Chest wall: Effort normal. (-) Respiratory distress, (-) Wheezes, (-) Rales Abd: Soft, (-) Tenderness, (-) Distension, (-) Guarding, (-) Rebound Musculoskeletal: (+) 2+ pitting Edema in bilat LE Lymph: (-) Cervical adenopathy Neuro: Alert, Oriented x3 Psych: Mood and affect Normal Triage Information Reviewed: Yes Vital Signs On Initial Exam: Initial Vitals Temp Pulse Resp BP Pulse Ox 98.8 F 82 16 143/57 99 07/24/17 15:22 07/24/17 15:22 07/24/17 15:22 07/24/17 15:22 07/24/17 15:22 Vital Signs Reviewed: Yes Diagnostics - Vital Signs Vital Signs Temp Pulse Resp BP Pulse Ox 07/24/17 15:22 98.8 F 82 16 143/57 99 - Laboratory Result Diagrams: 07/24/17 15:49 07/24/17 15:49 Lab Statement: Any lab studies that have been ordered have been reviewed, and results considered in the medical decision making process. - Radiology CXR Radiology Interpretation Completed By: Radiologist - CARDIOMEGALY WITH PULMONARY INTERSTITIAL EDEMA ED physician has reviewed this radiology report. - EKG 15:30 Cardiac Rate: Other Rate EKG Rhythm: Atrial Fibrillation - at 79 BPM EKG Interpretation: poor R wave progression, No STEMI Chest Pain Course/Dx - Course Assessment/Plan: This patient is a 51 year old M BIBA to [facility] accompanied by his with a chief complaint of CP since he woke up this morning. Pt lives at [facility] and he had just returned there from the [facility] [employer]. The patient rates the constant pain 4/10 in severity and states it radiates into his left neck and shoulder. Symptoms alleviated spontaneously, they are slowing resolving. Patient reports 40lb gain in the last week, trouble urinating, chills , diaphoresis, and a productive cough with brown phlegm. An EKG reveals poor R wave progression. CXR reveals, per radiologist, CARDIOMEGALY WITH PULMONARY INTERSTITIAL EDEMA. Test results with no significant abnormalities except for a BUN of 33, glucose of 184, and an alkaline phosphatase of 195. In the ED course the patient was given ASA, Lasix, and NTG. We discussed patient care with Dr. Cai and they accepted the patient for admission. Patient will be admitted for chest pain unspecified and pulmonary edema. The patient is agreeable with this plan. - Diagnoses Provider Diagnoses: Chest pain, unspecified, Pulmonary edema - Provider Notifications Discussed Care Of Patient With: Camilla Cai Time Discussed With Above Provider: 16:48 Instructed by Provider To: Admit As Inpatient Discharge - Sign-Out/Discharge Documenting (check all that apply): Discharge - Discharge Plan Condition: Fair Disposition: ADMITTED TO [facility] Referrals: Lencho Plasencia MD [Primary Care Provider] - The documentation as recorded by the Megan gillespie Gabriel accurately reflects the service I personally performed and the decisions made by me, Pardeep Garcia MD.
--- NOTE | 2017-07-28 15:11 | PN ---
Subjective Date of Service: 07/28/17 Interval History: net negative 800. drank a lot. weight down 2kg. still with some abdominal pain. denies BM today. thinks swelling/fluid is slowly getting better. appetite good. Intermittent tachycardia to 120s seemingly regular. Objective Active Medications: Acetaminophen (Tylenol Tab*) 325 mg PO Q6H PRN PRN Reason: PAIN Last Admin: 07/28/17 05:46 Dose: 325 mg Albuterol (Ventolin 2.5 Mg/3 Ml Neb.Christy*) 2.5 mg INH Q4H PRN PRN Reason: SOB/WHEEZING Last Admin: 07/28/17 07:30 Dose: 2.5 mg Allopurinol (Zyloprim Tab*) 300 mg PO DAILY [facility] Last Admin: 07/28/17 09:16 Dose: 300 mg Atorvastatin Calcium (Lipitor*) 40 mg PO DAILY [facility] Last Admin: 07/28/17 09:18 Dose: 40 mg Cholecalciferol (Vitamin D Tab*) 1,000 units PO DAILY [facility] Last Admin: 07/28/17 09:17 Dose: 1,000 units Dextrose (D50w Syringe 50 Ml*) 12.5 gm IV PUSH .FOR FS < 60 - SS PRN PRN Reason: FS < 60 Ferrous Gluconate (Fergon Tab*) 324 mg PO DAILY [facility] Last Admin: 07/28/17 09:17 Dose: 324 mg Fluticasone Propionate (Flonase Nasal [place] 50mcg*) 2 spray BOTH NARES DAILY PRN PRN Reason: Allergy Symptoms Last Admin: 07/26/17 08:41 Dose: 2 spray Furosemide (Lasix Iv*) 60 mg IV 0800,1700 [facility] Last Admin: 07/28/17 09:01 Dose: 60 mg Guaifenesin (Mucinex*) 600 mg PO Q12H PRN PRN Reason: congestion Heparin Sodium (Porcine) (Heparin Flush Picc/Ml/Cvc(*)) 1 - 3 ml FLUSH 0600, 1800 [facility] PRN Reason: Protocol Last Admin: 07/28/17 09:20 Dose: 1 ml Vancomycin HCl 1,000 mg/ (Sodium Chloride) 250 mls @ 166.667 mls/hr IVPB Q24H [facility] Last Admin: 07/27/17 15:19 Dose: 166.667 mls/hr Ceftriaxone Sodium 1,000 mg/ (Sterile Water) 10 mls @ 40 mls/hr IVPB Q24H [facility] Last Admin: 07/27/17 18:09 Dose: 40 mls/hr Insulin Glargine (Lantus(*)) 18 units SUBCUT BEDTIME [facility] Last Admin: 07/27/17 22:08 Dose: 18 units Insulin Human Lispro (Humalog*) 10 units SUBCUT TID [facility] Last Admin: 07/28/17 13:47 Dose: 10 units Levothyroxine Sodium (Synthroid Tab*) 200 mcg PO DAILY@0600 [facility] Last Admin: 07/28/17 05:31 Dose: 200 mcg Metoprolol Tartrate (Lopressor Tab*) 25 mg PO BID [facility] Last Admin: 07/28/17 09:18 Dose: 25 mg Mometasone Furoate/Formoterol Fumar (Dulera 200/5 Mdi*) 2 puff INH BID [facility] PRN Reason: Protocol Last Admin: 07/28/17 07:35 Dose: 2 puff Nystatin (Nystatin Cream*) 1 applic TOPICAL BID [facility] Last Admin: 07/28/17 09:19 Dose: 1 applic Oxycodone HCl (Roxycodone Tab*) 5 mg PO Q4H PRN PRN Reason: PAIN - SEVERE Last Admin: 07/28/17 05:46 Dose: 5 mg Pharmacy Consult (Vancomycin Per Pharmacy*) 1 note FOLLOW UP .VANC PER PHARMACY [facility] Phenyleph/Shark Oil/Min Oil/Petrol (Preparation H*) 1 applic PA Q8H PRN PRN Reason: PAIN Polyethylene Glycol/Electrolytes (Miralax*) 17 gm PO BID [facility] Last Admin: 07/28/17 09:19 Dose: Not Given Rivaroxaban (Xarelto(*)) 20 mg PO DAILY [facility] Last Admin: 07/28/17 09:17 Dose: 20 mg Senna (Senokot Tab*) 1 tab PO BEDTIME PRN PRN Reason: CONSTIPATION Simethicone (Mylicon Tab*) 80 mg PO Q8H PRN PRN Reason: bloating Last Admin: 07/28/17 12:28 Dose: 80 mg Spironolactone (Aldactone Tab*) 50 mg PO DAILY [facility] Last Admin: 07/28/17 09:18 Dose: 50 mg Tamsulosin HCl (Flomax Cap*) 0.4 mg PO DAILY [facility] Last Admin: 07/28/17 09:18 Dose: 0.4 mg Vital Signs - 8 hr 07/28/17 07/28/17 07/28/17 07:30 08:00 08:12 Temperature 98.0 F Pulse Rate 70 74 Respiratory 18 15 Rate Blood Pressure 122/63 (mmHg) O2 Sat by Pulse 96 100 Oximetry 07/28/17 09:49 Temperature Pulse Rate 124 Respiratory 16 Rate Blood Pressure 95/60 (mmHg) O2 Sat by Pulse Oximetry Oxygen Devices in Use Now: Nasal Cannula Appearance: NAD Ears/Nose/Mouth/Throat: NL Teeth, Lips, Gums, Mucous Membranes Moist Respiratory: Symmetrical Chest Expansion and Respiratory Effort, - - anteriorly CTAB though distant. no wheezing. Cardiovascular: NL Sounds; No Murmurs; No JVD, RRR, - - right upper chest mass with pitting edema, less erythema. Abdominal: - - super morbid obesity, pannus and RUQ pitting edema with some erythema. Extremities: - - 2+ edema Skin: No Rash or Ulcers Neurological: Alert and Oriented x 3, NL Sensation, NL Muscle Strength and Tone Result Diagrams: 07/28/17 09:25 07/28/17 09:25 Additional Lab and Data: Laboratory Results - last 24 hr 07/27/17 07/27/17 07/27/17 07:55 16:44 22:03 WBC RBC Hgb Hct MCV MCH MCHC RDW Plt Count MPV Neut % (Auto) Lymph % (Auto) Bibb % (Auto) Eos % (Auto) Baso % (Auto) Absolute Neuts (auto) Absolute Lymphs (auto) Absolute Monos (auto) Absolute Eos (auto) Absolute Basos (auto) Absolute Nucleated RBC Nucleated RBC % Haptoglobin 280 H Sodium Potassium Chloride Carbon Dioxide Anion Gap BUN Creatinine Est GFR ( Amer) Est GFR (Non-Af Amer) BUN/Creatinine Ratio Glucose POC Glucose (mg/dL) 181 H 181 H Calcium Magnesium 07/27/17 07/28/17 07/28/17 22:12 07:13 09:25 WBC RBC Hgb Hct MCV MCH MCHC RDW Plt Count MPV Neut % (Auto) Lymph % (Auto) Bibb % (Auto) Eos % (Auto) Baso % (Auto) Absolute Neuts (auto) Absolute Lymphs (auto) Absolute Monos (auto) Absolute Eos (auto) Absolute Basos (auto) Absolute Nucleated RBC Nucleated RBC % Haptoglobin Sodium 134 Potassium 4.6 Chloride 90 L Carbon Dioxide 43 H* Anion Gap 1 L BUN 41 H Creatinine 1.19 H Est GFR ( Amer) 82.6 Est GFR (Non-Af Amer) 64.2 BUN/Creatinine Ratio 34.5 H Glucose 183 H POC Glucose (mg/dL) 206 H 171 H Calcium 9.3 Magnesium 1.8 L 07/28/17 07/28/17 09:25 11:39 WBC 8.2 RBC 3.53 L Hgb 9.3 L Hct 30 L MCV 85 MCH 27 MCHC 31 RDW 18 H Plt Count 349 MPV 7.5 Neut % (Auto) 76.2 Lymph % (Auto) 6.4 L Bibb % (Auto) 6.9 Eos % (Auto) 9.2 H Baso % (Auto) 1.3 Absolute Neuts (auto) 6.2 Absolute Lymphs (auto) 0.5 L Absolute Monos (auto) 0.6 Absolute Eos (auto) 0.8 H Absolute Basos (auto) 0.1 Absolute Nucleated RBC 0 Nucleated RBC % 0 Haptoglobin Sodium Potassium Chloride Carbon Dioxide Anion Gap BUN Creatinine Est GFR ( Amer) Est GFR (Non-Af Amer) BUN/Creatinine Ratio Glucose POC Glucose (mg/dL) 181 H Calcium Magnesium Microbiology and Other Data: Microbiology 07/26/17 12:15 Tissue - Other Wound Gram Stain - Final 07/26/17 12:15 Tissue - Other Tissue Culture - Preliminary No Growth Day 2 07/26/17 12:15 Tissue - Other Acid Fast Bacilli Smear - Final 07/24/17 16:08 Urine Urine Culture - Final No Growth (<1,000 CFU/mL) 07/24/17 17:43 Nasal Nasal Screen MRSA (PCR)(JEAN CARLOS) - Final Mrsa Not Detected Assess/Plan/Problems-Billing Assessment: 51 yo male PMH OHS, chronic hypoxic respiratory failure, diastolic CHF, IDDM, Afib, Osteomyelitis s/p right toe amputation, recent MRSA bacteremia on IV vancomycin p/w chest pressure, weight gain, rapidly enlarging right chest swelling near a previously known [id number] lipoma w/ some erythema. Acute diastolic CHF exacerbation in setting of stopping torsemide and now Severe pHTN on ECHO. elevated DDimer. CT chest angio w/o e/o of central PE but extremely limited study. on Xarelto already for Afib. Diuresing and may need RHC and diagnostic thora for right pleural effusion. - Patient Problems (1) Acute on chronic diastolic (congestive) heart failure Current Visit: No Status: Acute Priority: High Code(s): I50.33 - ACUTE ON CHRONIC DIASTOLIC (CONGESTIVE) HEART FAILURE SNOMED Code(s): 900675231 Comment: lasix 60mg IV q12. Daily weights. strict i/o. Steady decline spironolactone home was torsemide 20mg daily but had refused it for few weeks it sounds like. ECHO with severe pHTN, e/o right sided volume overload. DDimer also elevated. CT chest angiogram w/o e/o central PE but otherwise limited study. is on xarelto so it would be a treatment failure if so. likely will need RHC once more Euvolemic. Dr Medina consulted (also for consideration of right pleural fluid diagnostic thora) (2) Mass of right chest wall Current Visit: Yes Status: Acute Code(s): R22.2 - LOCALIZED SWELLING, MASS AND LUMP, TRUNK SNOMED Code(s): 999929679 Comment: in setting of previously known [id number] mass from Jun 2015 thought at time lipoma. Rapid growth in last 4 weeks with now pain. ddx would include liposarcoma or other malignancy. Appreciate pathology assistance with tissue biopsy 07/26. no AFB or orgs on gram stain. Culture NGTD. However only serosanguinous FLUID obtained with small needle. May need IR guided biopsy to sample the actual lipoma. No yash lymphadenoapthy on CT chest/abd/pelvis though limited study. (3) Anemia Current Visit: No Status: Acute Priority: High Onset Date: 06/10/14 Code (s): D64.9 - ANEMIA, UNSPECIFIED SNOMED Code(s): 499600557 Comment: normocytic but elevated RDW. On xarelto for Afib iron deficient, now on ferrous gluconate (started this admission) iron 27% iron sat 9% ferritin 111. add stool guiac. (still pending) (4) Cellulitis Current Visit: No Status: Acute Code(s): L03.90 - CELLULITIS, UNSPECIFIED SNOMED Code(s): 397102415 Comment: right chest with erythema and inflammatory skin changes on CT chest. continue vancomycin (on previously for 4-5 weeks), and now ceftriaxone. ID was consulted. appreciate recs. (5) Atrial fibrillation Current Visit: No Status: Acute Priority: High Code(s): I48.91 - UNSPECIFIED ATRIAL FIBRILLATION SNOMED Code(s): 91255142 Comment: Continue metoprolol; continue Xarelto replete lytes Mg>2, K>4. monitor closely given aggressive diuresis. (6) Chronic respiratory failure Current Visit: No Status: Acute Code(s): J96.10 - CHRONIC RESPIRATORY FAILURE, UNSP W HYPOXIA OR HYPERCAPNIA SNOMED Code(s): 56266780 Comment: Pt with chronic hypoxic respiratory failure secondary to COPD and obesity hypoventilation syndrome. Now also severe pHTN. Dr. Medina consuled. also now volume overloaded 2/2 acute on chronic diastolic CHF. diruresis. Continue supplemental O2. (7) Morbid obesity Current Visit: No Status: Acute Code(s): E66.01 - MORBID (SEVERE) OBESITY DUE TO EXCESS CALORIES SNOMED Code(s): 730371767 Comment: Encourage diet modification. (8) Diabetes mellitus Current Visit: No Status: Acute Code(s): E11.9 - TYPE 2 DIABETES MELLITUS WITHOUT COMPLICATIONS SNOMED Code(s): 89212793 Comment: continue lantus 18U qhs. continue lispro 10 units with each meal (had been refusing but getting sliding scale instead) A1C 7.3 on 07/12/17 (9) MRSA (methicillin resistant Staphylococcus aureus) Current Visit: No Status: Chronic Code(s): A49.02 - METHICILLIN RESIS STAPH INFECTION, UNSP SITE SNOMED Code(s): 520290069 Comment: MRSA bacteremia and wound infection in Jun 2017. has PICC 07/05 continue IV vancomycin. goal trough 15-20 ID consulted. dosing per pharmacy. (10) Pleural effusion Current Visit: Yes Status: Acute Code(s): J90 - PLEURAL EFFUSION, NOT ELSEWHERE CLASSIFIED SNOMED Code(s): 43675722 Comment: in setting of severe pHTN, diastolic failure. Dr. Medina consulted for potential diagnostic thoracentesis. Status and Disposition: medicine inpatient.
[2017-07-28] MEDS: Vancomycin(*) 1,000 MG in NS 0.9% 250 ML* 250 ML IVPB SCH ×2 (15:24→16:15)
[2017-07-28] MEDS: cefTRIAXone 1000 MG SYRINGE IVPB Q24H IVPB SCH ×4 (17:16→18:29)
[2017-07-28] MEDS: Insulin GLARGINE(*) 1 UNITS UNIT SUBCUT SCH (21:16)
--- NOTE | 2017-07-28 23:18 | CONS ---
PULMONARY CONSULTATION REPORT: DATE OF CONSULT: 07/28/17 CONSULTATION REQUEST BY: Dr. Dennis Cervantes. REASON FOR CONSULT: Evaluation of pleural effusion and pulmonary hypertension. HISTORY OF PRESENT ILLNESS: The patient is a 51-year-old male, morbidly obese, resident of [facility], recently placed in [facility] for subacute rehab following treatment of osteomyelitis of left ankle. The patient presents for evaluation of chest pain and weight gain. He has put on approximately 40 pounds in the past 2 weeks prior to the presentation. The patient had a sensation of elephant sitting on his chest prior to presentation. The patient was on torsemide for fluid overload, has not been taking it recently. He has chronic hypoxemia and is on O2 supplementation at 5 L at baseline. The patient was noted to have large right- sided chest wall mass. The patient also complained of abdominal and flank pain. The patient was also noted to have soft tissue mass in the right flank. He underwent a fine needle aspiration, which showed serosanguineous fluid. The patient also had abdominal ultrasound and abdominal CT scan, which showed diffuse edema with no drainable collection. The patient also had CT scan of the chest, abdomen, and pelvis with contrast. timing and bolus of contrast was not adequate; however, did not reveal significant filling defects in main pulmonary arteries. He was noted to have a [id number] sized right pleural effusion with underlying atelectasis. The patient was seen and examined at bedside. The patient reports no shortness of breath. He reports that he is otherwise at his baseline except for discomfort in his chest from the chest wall swelling and abdominal discomfort. The patient reports the last bowel movement was yesterday and feels constipated today. The patient denies fevers or chills. The patient reports generalized edema. The patient is alert and oriented x3. The patient has history of sleep apnea and claims to be compliant with CPAP. The patient reports that his CPAP at home is very old and he does not use humidifier resulting in dry mouth issues. The patient reports that he is tolerating auto CPAP while here better. The patient has history of DVT and PE and has been on anticoagulation. The patient otherwise is stable from respiratory perspective. PAST MEDICAL HISTORY: 1. Super morbid obesity. 2. VENTURA, on CPAP. 3. Type 2 diabetes. 4. Chronic hypoxemic respiratory failure secondary to obesity hypoventilation. 5. DVT, PE. 6. Hyperlipidemia. 7. Chronic kidney disease. 8. Hypertension. 9. Peripheral vascular disease. 10. Hypothyroidism. 11. Arthritis. 12. Gout. 13. Osteomyelitis in the right second toe, status post amputation. MEDICATIONS: 1. Heparin 5000 units daily through PICC line. 2. Lispro. 3. Lipitor. 4. Metoprolol. 5. Symbicort. 6. Xarelto. 7. Allopurinol. 8. Spironolactone. 9. Levothyroxine. 10. Nystatin. 11. Probiotic. 12. Lantus. 13. Vitamin D. 14. Senna. 15. Humulin. 16. Guaifenesin. 17. Torsemide. 18. Flonase. 19. Albuterol. 20. Hemorrhoidal ointment. 21. Sodium chloride nasal spray. 22. Tylenol. 23. MiraLAX. 24. Simethicone. 25. Oxycodone. ALLERGIES: TIGECYCLINE. FAMILY HISTORY: Mom is living, 72, has history of fibromyalgia. Dad is also living, 76, with diabetes and heart disease. SOCIAL HISTORY: Former smoker, quit 20 years ago. Does not drink alcohol. 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 He is and has 1 child. REVIEW OF SYSTEMS: All 14 systems reviewed and as per HPI. PHYSICAL EXAM: Super morbid obese male, in bed, in no apparent distress. Vital Signs: Temperature 98, heart rate 74 beats per minute, respiratory rate 15 per minute, O2 sat 100% on 5 L, blood pressure 122/63. HEENT: Pupils equal and reactive to light. Mucous membranes moist, Mallampati class IV airway, increased neck circumference. Lungs: Decreased breath sounds at bases. No wheeze on auscultation. Cardiovascular: S1, S2 present, irregular. Extremities: Significant edema of the extremities, pitting, erythematous skin. Skin: Erythematous over the extremities and evidence of chest wall erythema and swelling. Abdomen: Obese. Nontender, nondistended. Abdominal hernia noted. Musculoskeletal: No cyanosis or clubbing, status post right second toe amputation. Neuro: No focal deficits. DIAGNOSTIC STUDIES/LAB DATA: WBC count 8.2, hemoglobin 9.3, hematocrit 30, platelet count 349. Sodium 134, potassium 4.6, chloride 90, bicarb 43, BUN 41, creatinine 1.19, glucose 183. CTA as described above in HPI. IMPRESSION/RECOMMENDATIONS: 51-year-old super morbidly obese male with generalized anasarca, chest wall swelling on right side with history of lipoma in that area with gradual increasing chest wall mass with evidence of cellulitis , being treated with antibiotics. The patient was noted to have pleural effusion on the right side with compressive atelectasis. Pleural effusion is likely secondary to generalized anasarca that the patient has and diastolic CHF. He is super morbidly obese and would need a procedure through Interventional Radiology; however, I do not appreciate any significant need for thoracentesis at this time. Fluid may recur again in spite of removal if he has generalized anasarca and reason to have recurrence. He has not been compliant with diuresis recently. He is not in any respiratory distress at this point that would require thoracentesis. Would recommend continuing with diuresis. He would have pulmonary hypertension secondary to obesity hypoventilation, obstructive sleep apnea, and hypoxemia. I do not think it would be any different with right heart catheterization, he might also have high wedge secondary to diastolic CHF. I would recommend managing his fluid status aggressively, which would also help to resolve some of the pleural effusion. He also has the chest wall mass, which is pretty huge, which is likely also resulting in more restrictive process and thereby causing lung atelectasis and pleural effusion as a result. I do not feel that he would benefit from thoracentesis at this time as he is not symptomatic with worsening hypoxia or SOB. His white count is within normal limits and he does not manifest signs of sepsis at this time. If there is concern about parapneumonic effusion, I would recommend interventional radiology-guided thoracentesis. Continue with PAP therapy at night. Continue with O2 supplementation. Thank you for allowing me to participate in the care of your patient. [id number]/[facility] #: [id number] VIGNESH
[2017-07-29] MEDS: Levothyroxine TAB* 100 MCG TAB PO SCH (05:14)
[2017-07-29] MEDS: oxyCODONE TAB* 5 MG TAB PO PRN ×3 (05:14→18:23)
[2017-07-29] MEDS: Acetaminophen TAB* 325 MG PO PRN (05:14)
[2017-07-29] MEDS: Polyethylene Glycol 3350* 17 GM PACKET PO SCH ×3 (08:24→22:22)
[2017-07-29] MEDS: Spironolactone TAB* 25 MG PO SCH (08:24)
[2017-07-29] MEDS: Allopurinol TAB* 300 MG PO SCH (08:25)
[2017-07-29] MEDS: Ferrous Gluconate TAB* 324 MG TAB PO SCH (08:25)
[2017-07-29] MEDS: Atorvastatin* 40 MG TAB PO SCH (08:25)
[2017-07-29] MEDS: Cholecalciferol TAB* 1000 UNITS PO SCH (08:25)
[2017-07-29] MEDS: Rivaroxaban TAB(*) 20 MG TAB PO SCH (08:25)
[2017-07-29] MEDS: Metoprolol Tartrate TAB* 25 MG PO SCH ×2 (08:25→21:47)
[2017-07-29] MEDS: Tamsulosin CAP* 0.4 MG PO SCH (08:25)
[2017-07-29] MEDS: Furosemide IV* 10 MG/ML 10 ML VIAL (100 MG) IV SCH ×3 (08:26→21:46)
[2017-07-29] MEDS: Insulin LISPRO* 1 UNITS UNIT SUBCUT SCH ×3 (08:26→17:11)
[2017-07-29] MEDS: Nystatin CREAM* 15 GM TUBE TOPICAL SCH ×2 (08:36→22:15)
[2017-07-29] MEDS: Mometasone/Formoter 200/5 MDI INH SCH ×2 (08:44→19:46)
[2017-07-29] MEDS: Fluticasone NASAL SPRAY 50MCG* 16 gm SPRAY BTL BOTH NARES PRN (10:56)
[2017-07-29] MEDS: Vancomycin(*) 1,000 MG in NS 0.9% 250 ML* 250 ML IVPB SCH (13:58)
--- NOTE | 2017-07-29 15:03 | PN ---
Subjective Date of Service: 07/29/17 Interval History: negative 2.5L wants exercise bands feels sensation of warmth during meals. nose is clogged up with mucous chronically yellow productive sputum afebrile. thirsty and wanting more than 1.5L. Objective Active Medications: Acetaminophen (Tylenol Tab*) 325 mg PO Q6H PRN PRN Reason: PAIN Last Admin: 07/29/17 05:14 Dose: 325 mg Albuterol (Ventolin 2.5 Mg/3 Ml Neb.Christy*) 2.5 mg INH Q4H PRN PRN Reason: SOB/WHEEZING Last Admin: 07/28/17 07:30 Dose: 2.5 mg Allopurinol (Zyloprim Tab*) 300 mg PO DAILY [facility] Last Admin: 07/29/17 08:25 Dose: 300 mg Atorvastatin Calcium (Lipitor*) 40 mg PO DAILY [facility] Last Admin: 07/29/17 08:25 Dose: 40 mg Cholecalciferol (Vitamin D Tab*) 1,000 units PO DAILY [facility] Last Admin: 07/29/17 08:25 Dose: 1,000 units Dextrose (D50w Syringe 50 Ml*) 12.5 gm IV PUSH .FOR FS < 60 - SS PRN PRN Reason: FS < 60 Ferrous Gluconate (Fergon Tab*) 324 mg PO DAILY [facility] Last Admin: 07/29/17 08:25 Dose: 324 mg Fluticasone Propionate (Flonase Nasal [place] 50mcg*) 2 spray BOTH NARES DAILY PRN PRN Reason: Allergy Symptoms Last Admin: 07/29/17 10:56 Dose: 2 spray Furosemide (Lasix Iv*) 60 mg IV 0800,1400,2000 [facility] Last Admin: 07/29/17 08:26 Dose: 60 mg Guaifenesin (Mucinex*) 600 mg PO Q12H PRN PRN Reason: congestion Heparin Sodium (Porcine) (Heparin Flush Picc/Ml/Cvc(*)) 1 - 3 ml FLUSH 0600, 1800 [facility] PRN Reason: Protocol Last Admin: 07/29/17 05:15 Dose: 1 ml Vancomycin HCl 1,000 mg/ (Sodium Chloride) 250 mls @ 166.667 mls/hr IVPB Q24H [facility] Last Admin: 07/29/17 13:58 Dose: 166.667 mls/hr Ceftriaxone Sodium 1,000 mg/ (Sterile Water) 10 mls @ 40 mls/hr IVPB 1800 [facility] Last Admin: 07/28/17 18:29 Dose: 40 mls/hr Insulin Glargine (Lantus(*)) 18 units SUBCUT BEDTIME [facility] Last Admin: 07/28/17 21:16 Dose: 18 units Insulin Human Lispro (Humalog*) 10 units SUBCUT TID PC [facility] Last Admin: 07/29/17 12:14 Dose: 10 units Levothyroxine Sodium (Synthroid Tab*) 200 mcg PO DAILY@0600 [facility] Last Admin: 07/29/17 05:14 Dose: 200 mcg Metoprolol Tartrate (Lopressor Tab*) 25 mg PO BID [facility] Last Admin: 07/29/17 08:25 Dose: 25 mg Mometasone Furoate/Formoterol Fumar (Dulera 200/5 Mdi*) 2 puff INH BID [facility] PRN Reason: Protocol Last Admin: 07/29/17 08:44 Dose: 2 puff Nystatin (Nystatin Cream*) 1 applic TOPICAL BID [facility] Last Admin: 07/29/17 08:36 Dose: 1 applic Oxycodone HCl (Roxycodone Tab*) 5 mg PO Q4H PRN PRN Reason: PAIN - SEVERE Last Admin: 07/29/17 10:53 Dose: 5 mg Pharmacy Consult (Vancomycin Per Pharmacy*) 1 note FOLLOW UP .VANC PER PHARMACY [facility] Phenyleph/Shark Oil/Min Oil/Petrol (Preparation H*) 1 applic HI Q8H PRN PRN Reason: PAIN Polyethylene Glycol/Electrolytes (Miralax*) 17 gm PO BID [facility] Last Admin: 07/29/17 08:24 Dose: 17 gm Rivaroxaban (Xarelto(*)) 20 mg PO DAILY [facility] Last Admin: 07/29/17 08:25 Dose: 20 mg Senna (Senokot Tab*) 1 tab PO BEDTIME PRN PRN Reason: CONSTIPATION Simethicone (Mylicon Tab*) 80 mg PO Q8H PRN PRN Reason: bloating Last Admin: 07/28/17 12:28 Dose: 80 mg Spironolactone (Aldactone Tab*) 50 mg PO DAILY [facility] Last Admin: 07/29/17 08:24 Dose: 50 mg Tamsulosin HCl (Flomax Cap*) 0.4 mg PO DAILY GISELLA Last Admin: 07/29/17 08:25 Dose: 0.4 mg Vital Signs - 8 hr 07/29/17 07/29/17 07/29/17 07:44 08:00 08:46 Temperature 98.4 F Pulse Rate 71 73 Respiratory 16 18 18 Rate Blood Pressure 109/51 (mmHg) O2 Sat by Pulse 100 96 Oximetry 07/29/17 07/29/17 07/29/17 09:17 10:53 12:04 Temperature 98.9 F Pulse Rate 68 Respiratory 16 16 16 Rate Blood Pressure 117/56 (mmHg) O2 Sat by Pulse 100 Oximetry 07/29/17 14:45 Temperature Pulse Rate Respiratory 16 Rate Blood Pressure (mmHg) O2 Sat by Pulse Oximetry Oxygen Devices in Use Now: Nasal Cannula Appearance: NAD Eyes: No Scleral Icterus, PERRLA Respiratory: Symmetrical Chest Expansion and Respiratory Effort, Clear to Auscultation Cardiovascular: NL Sounds; No Murmurs; No JVD, RRR Abdominal: - - super morbid obese. RUQ bowel wall and pannus edema. RUQ chest mass. Extremities: - - 2+ edeama b/l LE. anisarca. Skin: No Rash or Ulcers, No Nodules or Sclerosis Neurological: Alert and Oriented x 3, NL Sensation, NL Muscle Strength and Tone Nutrition: Taking PO's Result Diagrams: 07/28/17 09:25 07/28/17 09:25 Additional Lab and Data: Laboratory Results - last 24 hr 07/28/17 07/28/17 07/29/17 16:51 21:03 08:24 POC Glucose (mg/dL) 171 H 182 H 151 H 07/29/17 12:13 POC Glucose (mg/dL) 173 H Microbiology and Other Data: Microbiology 07/26/17 12:15 Tissue - Other Wound Gram Stain - Final 07/26/17 12:15 Tissue - Other Tissue Culture - Preliminary No Growth Day 3 07/26/17 12:15 Tissue - Other Acid Fast Bacilli Smear - Final 07/24/17 16:08 Urine Urine Culture - Final No Growth (<1,000 CFU/mL) 07/24/17 17:43 Nasal Nasal Screen MRSA (PCR)(JEAN CARLOS) - Final Mrsa Not Detected Assess/Plan/Problems-Billing Assessment: 51 yo male PMH OHS, chronic hypoxic respiratory failure, diastolic CHF, IDDM, Afib, Osteomyelitis s/p right toe amputation, recent MRSA bacteremia on IV vancomycin p/w chest pressure, weight gain, rapidly enlarging right chest swelling near a previously known [id number] lipoma w/ some erythema. Acute diastolic CHF exacerbation in setting of stopping torsemide and now Severe pHTN on ECHO. elevated DDimer. CT chest angio w/o e/o of central PE but extremely limited study. on Xarelto already for Afib. Diuresing aggresively (had gained 40kg total in 3 months) - Patient Problems (1) Acute on chronic diastolic (congestive) heart failure Current Visit: No Status: Acute Priority: High Code(s): I50.33 - ACUTE ON CHRONIC DIASTOLIC (CONGESTIVE) HEART FAILURE SNOMED Code(s): 430462878 Comment: increased lasix 60mg IV from q12 to q8. Daily weights. strict i/o. Steady decline but still have a long way to go. spironolactone home was torsemide 20mg daily but had refused it for few weeks it sounds like. ECHO with severe pHTN, e/o right sided volume overload. DDimer also elevated. CT chest angiogram w/o e/o central PE but otherwise limited study. is on xarelto so it would be a treatment failure if so. appreciate Dr.Kodali mojica. she will try to arrange outpatient sleep study after discharge as may benefit from bipap with additional pressure control ventilation (Bipap-AVAPS) (2) Mass of right chest wall Current Visit: Yes Status: Acute Code(s): R22.2 - LOCALIZED SWELLING, MASS AND LUMP, TRUNK SNOMED Code(s): 238269215 Comment: in setting of previously known [id number] mass from Jun 2015 thought at time lipoma. Rapid growth in last 4 weeks with now pain. ddx would include liposarcoma or other malignancy. Appreciate pathology assistance with tissue biopsy 07/26. no AFB or orgs on gram stain. Culture NGTD. However only serosanguinous FLUID obtained with small needle. May need IR guided biopsy to sample the actual lipoma. Will discuss with Dr. Leon when on service. No yash lymphadenoapthy on CT chest/abd/pelvis though limited study. (3) Anemia Current Visit: No Status: Acute Priority: High Onset Date: 06/10/14 Code (s): D64.9 - ANEMIA, UNSPECIFIED SNOMED Code(s): 820320527 Comment: normocytic but elevated RDW. On xarelto for Afib iron deficient, now on ferrous gluconate (started this admission) iron 27% iron sat 9% ferritin 111. add stool guiac. (still pending) (4) Cellulitis Current Visit: No Status: Acute Code(s): L03.90 - CELLULITIS, UNSPECIFIED SNOMED Code(s): 159362019 Comment: right chest with erythema and inflammatory skin changes on CT chest. continue vancomycin (on previously for 4-5 weeks), and now ceftriaxone. ID was consulted. appreciate recs. (5) Atrial fibrillation Current Visit: No Status: Acute Priority: High Code(s): I48.91 - UNSPECIFIED ATRIAL FIBRILLATION SNOMED Code(s): 96720116 Comment: Continue metoprolol; continue Xarelto replete lytes Mg>2, K>4. monitor closely given aggressive diuresis. (6) Chronic respiratory failure Current Visit: No Status: Acute Code(s): J96.10 - CHRONIC RESPIRATORY FAILURE, UNSP W HYPOXIA OR HYPERCAPNIA SNOMED Code(s): 41555601 Comment: Pt with chronic hypoxic respiratory failure secondary to COPD and obesity hypoventilation syndrome. Now also severe pHTN. appreciate Dr. Craol mojica. also now volume overloaded 2/2 acute on chronic diastolic CHF. diruresis. Continue supplemental O2. (7) Morbid obesity Current Visit: No Status: Acute Code(s): E66.01 - MORBID (SEVERE) OBESITY DUE TO EXCESS CALORIES SNOMED Code(s): 485990213 Comment: Encourage diet modification. (8) Diabetes mellitus Current Visit: No Status: Acute Code(s): E11.9 - TYPE 2 DIABETES MELLITUS WITHOUT COMPLICATIONS SNOMED Code(s): 94414008 Comment: continue lantus 18U qhs. continue lispro 10 units with each meal (had been refusing but getting sliding scale instead) A1C 7.3 on 07/12/17 (9) MRSA (methicillin resistant Staphylococcus aureus) Current Visit: No Status: Chronic Code(s): A49.02 - METHICILLIN RESIS STAPH INFECTION, UNSP SITE SNOMED Code(s): 316964347 Comment: MRSA bacteremia and wound infection in Jun 2017. has PICC 07/05 continue IV vancomycin. goal trough 15-20 ID consulted. dosing per pharmacy. (10) Pleural effusion Current Visit: Yes Status: Acute Code(s): J90 - PLEURAL EFFUSION, NOT ELSEWHERE CLASSIFIED SNOMED Code(s): 38336621 Comment: in setting of severe pHTN, diastolic failure. appreciate Dr. Carol mojica in re: potential diagnostic thoracentesis. Status and Disposition: medicine inpatient.
[2017-07-29] MEDS: cefTRIAXone 1000 MG SYRINGE IVPB Q24H IVPB SCH ×2 (17:12)
[2017-07-29] MEDS: Simethicone TAB* 80 MG TAB.CHEW PO PRN (18:23)
[2017-07-29] MEDS: Albuterol 2.5 MG/3 ML NEB.SOL* (0.083%) INH PRN (19:47)
[2017-07-29] MEDS: Insulin GLARGINE(*) 1 UNITS UNIT SUBCUT SCH (22:20)
[2017-07-30] MEDS: Albuterol 2.5 MG/3 ML NEB.SOL* (0.083%) INH PRN ×3 (05:09→19:47)
[2017-07-30 06:48] LABS: EGFR Non-African American 57.5 (>60)
[2017-07-30] MEDS: Levothyroxine TAB* 100 MCG TAB PO SCH (07:50)
[2017-07-30] MEDS: Allopurinol TAB* 300 MG PO SCH (08:41)
[2017-07-30] MEDS: Spironolactone TAB* 25 MG PO SCH (08:41)
[2017-07-30] MEDS: Atorvastatin* 40 MG TAB PO SCH (08:41)
[2017-07-30] MEDS: Tamsulosin CAP* 0.4 MG PO SCH (08:42)
[2017-07-30] MEDS: Ferrous Gluconate TAB* 324 MG TAB PO SCH (08:42)
[2017-07-30] MEDS: Cholecalciferol TAB* 1000 UNITS PO SCH (08:42)
[2017-07-30] MEDS: Rivaroxaban TAB(*) 20 MG TAB PO SCH (08:42)
[2017-07-30] MEDS: Metoprolol Tartrate TAB* 25 MG PO SCH ×2 (08:43→20:09)
[2017-07-30] MEDS: Polyethylene Glycol 3350* 17 GM PACKET PO SCH ×2 (08:43→20:16)
[2017-07-30] MEDS: Insulin LISPRO* 1 UNITS UNIT SUBCUT SCH ×3 (08:43→18:40)
[2017-07-30] MEDS ORDERED: Magnesium Sulfate IV* 3 GM in NS 0.9% 100 ML* 100 ML IVPB ONE (08:44)
[2017-07-30] MEDS: Fluticasone NASAL SPRAY 50MCG* 16 gm SPRAY BTL BOTH NARES PRN (08:46)
[2017-07-30] MEDS: Mometasone/Formoter 200/5 MDI INH SCH ×2 (08:52→19:50)
[2017-07-30] MEDS ORDERED: Magnesium Sulfate 2 GM IV IVPB ONE (09:00)
[2017-07-30] MEDS: Nystatin CREAM* 15 GM TUBE TOPICAL SCH ×2 (09:35→21:46)
[2017-07-30] MEDS ORDERED: Magnesium Sulfate 1 GM IV* 1 GM/100 ML BAG IV ONE (10:00)
[2017-07-30] MEDS: Simethicone TAB* 80 MG TAB.CHEW PO PRN ×2 (10:12→20:08)
[2017-07-30] MEDS: Furosemide IV* 10 MG/ML 10 ML VIAL (100 MG) IV SCH ×2 (10:12→18:40)
[2017-07-30] MEDS: oxyCODONE TAB* 5 MG TAB PO PRN ×2 (12:33→20:18)
[2017-07-30] MEDS: Vancomycin(*) 1,000 MG in NS 0.9% 250 ML* 250 ML IVPB SCH (13:52)
[2017-07-30] MEDS ORDERED: Docusate CAP* 100 MG PO PRN (14:25)
[2017-07-30] MEDS ORDERED: Magnesium Hydroxide LIQ* 30 ML UDC PO ONE (14:25)
--- NOTE | 2017-07-30 15:02 | PN ---
Subjective Date of Service: 07/30/17 Interval History: Net negative 3.7L. COOK TACO 1.31 from 1.19, BUN 47 from 41. Lasix switched to BID from q8. Intermittent Afib. Afebrile. his bariatric bed broke(stuck with head down position which worsened his SOB and gave VILLALBA) this AM and had to be replaced. Objective Active Medications: Acetaminophen (Tylenol Tab*) 325 mg PO Q6H PRN PRN Reason: PAIN Last Admin: 07/29/17 05:14 Dose: 325 mg Albuterol (Ventolin 2.5 Mg/3 Ml Neb.Christy*) 2.5 mg INH Q4H PRN PRN Reason: SOB/WHEEZING Last Admin: 07/30/17 12:51 Dose: 2.5 mg Allopurinol (Zyloprim Tab*) 300 mg PO DAILY [facility] Last Admin: 07/30/17 08:41 Dose: 300 mg Atorvastatin Calcium (Lipitor*) 40 mg PO DAILY [facility] Last Admin: 07/30/17 08:41 Dose: 40 mg Cholecalciferol (Vitamin D Tab*) 1,000 units PO DAILY [facility] Last Admin: 07/30/17 08:42 Dose: 1,000 units Dextrose (D50w Syringe 50 Ml*) 12.5 gm IV PUSH .FOR FS < 60 - SS PRN PRN Reason: FS < 60 Docusate Sodium (Colace Cap*) 100 mg PO BID PRN PRN Reason: CONSTIPATION Ferrous Gluconate (Fergon Tab*) 324 mg PO DAILY [facility] Last Admin: 07/30/17 08:42 Dose: 324 mg Fluticasone Propionate (Flonase Nasal [place] 50mcg*) 2 spray BOTH NARES DAILY PRN PRN Reason: Allergy Symptoms Last Admin: 07/30/17 08:46 Dose: 2 spray Furosemide (Lasix Iv*) 60 mg IV 0800,1700 [facility] Last Admin: 07/30/17 10:12 Dose: 60 mg Guaifenesin (Mucinex*) 600 mg PO Q12H PRN PRN Reason: congestion Heparin Sodium (Porcine) (Heparin Flush Picc/Ml/Cvc(*)) 1 - 3 ml FLUSH 0600, 1800 [facility] PRN Reason: Protocol Last Admin: 07/30/17 07:50 Dose: 1 ml Vancomycin HCl 1,000 mg/ (Sodium Chloride) 250 mls @ 166.667 mls/hr IVPB Q24H [facility] Last Admin: 07/30/17 13:52 Dose: 166.667 mls/hr Ceftriaxone Sodium 1,000 mg/ (Sterile Water) 10 mls @ 40 mls/hr IVPB 1800 [facility] Stop: 07/30/17 17:59 Last Admin: 07/29/17 17:12 Dose: 40 mls/hr Ceftriaxone Sodium 1,000 mg/ (Sodium Chloride) 10 mls @ 40 mls/hr IVPB DAILY@ 1800 [facility] Insulin Glargine (Lantus(*)) 18 units SUBCUT BEDTIME [facility] Last Admin: 07/29/17 22:20 Dose: 18 units Insulin Human Lispro (Humalog*) 10 units SUBCUT TID [facility] Last Admin: 07/30/17 12:34 Dose: 10 units Levothyroxine Sodium (Synthroid Tab*) 200 mcg PO DAILY@0600 [facility] Last Admin: 07/30/17 07:50 Dose: 200 mcg Metoprolol Tartrate (Lopressor Tab*) 25 mg PO BID [facility] Last Admin: 07/30/17 08:43 Dose: 25 mg Mometasone Furoate/Formoterol Fumar (Dulera 200/5 Mdi*) 2 puff INH BID [facility] PRN Reason: Protocol Last Admin: 07/30/17 08:52 Dose: 2 puff Nystatin (Nystatin Cream*) 1 applic TOPICAL BID [facility] Last Admin: 07/30/17 09:35 Dose: 1 applic Oxycodone HCl (Roxycodone Tab*) 5 mg PO Q4H PRN PRN Reason: PAIN - SEVERE Last Admin: 07/30/17 12:33 Dose: 5 mg Pharmacy Consult (Vancomycin Per Pharmacy*) 1 note FOLLOW UP .VANC PER PHARMACY [facility] Pharmacy Profile Note (Vancomycin Trough Check) 1 note FOLLOW UP 1330 ONE Stop: 07/31/17 13:31 Phenyleph/Shark Oil/Min Oil/Petrol (Preparation H*) 1 applic [place] Q8H PRN PRN Reason: PAIN Polyethylene Glycol/Electrolytes (Miralax*) 17 gm PO BID [facility] Last Admin: 07/30/17 08:43 Dose: 17 gm Rivaroxaban (Xarelto(*)) 20 mg PO DAILY [facility] Last Admin: 07/30/17 08:42 Dose: 20 mg Senna (Senokot Tab*) 1 tab PO BEDTIME PRN PRN Reason: CONSTIPATION Simethicone (Mylicon Tab*) 80 mg PO Q8H PRN PRN Reason: bloating Last Admin: 07/30/17 10:12 Dose: 80 mg Spironolactone (Aldactone Tab*) 50 mg PO DAILY [facility] Last Admin: 07/30/17 08:41 Dose: 50 mg Tamsulosin HCl (Flomax Cap*) 0.4 mg PO DAILY [facility] Last Admin: 07/30/17 08:42 Dose: 0.4 mg Vital Signs - 8 hr 07/30/17 07/30/17 07/30/17 08:00 08:04 08:55 Temperature 98.6 F Pulse Rate 73 125 Respiratory 16 15 16 Rate Blood Pressure 110/62 (mmHg) O2 Sat by Pulse 100 96 Oximetry 07/30/17 07/30/17 12:33 12:53 Temperature Pulse Rate 103 Respiratory 16 16 Rate Blood Pressure (mmHg) O2 Sat by Pulse 97 Oximetry Oxygen Devices in Use Now: Nasal Cannula Appearance: NAD Eyes: No Scleral Icterus, PERRLA Ears/Nose/Mouth/Throat: NL Teeth, Lips, Gums Neck: NL Appearance and Movements; NL JVP Respiratory: Symmetrical Chest Expansion and Respiratory Effort, Clear to Auscultation Cardiovascular: NL Sounds; No Murmurs; No JVD, RRR, - - right chest with pitting edema. erythema. Abdominal: - - super morbid obesity, RUQ wall edema and pannus edema. Extremities: - - 1-2+ edema left foot. 1+ right foot. Neurological: Alert and Oriented x 3, NL Sensation, NL Muscle Strength and Tone Nutrition: Taking PO's Result Diagrams: 07/28/17 09:25 07/30/17 06:05 Additional Lab and Data: Laboratory Results - last 24 hr 07/29/17 07/29/17 07/30/17 17:17 21:45 06:05 Sodium 134 Potassium 4.3 Chloride 89 L Carbon Dioxide 43 H* Anion Gap 2 BUN 47 H Creatinine 1.31 H Est GFR ( Amer) 73.9 Est GFR (Non-Af Amer) 57.5 BUN/Creatinine Ratio 35.9 H Glucose 144 H POC Glucose (mg/dL) 175 H 188 H Calcium 9.2 Magnesium 1.8 L 07/30/17 07:47 Sodium Potassium Chloride Carbon Dioxide Anion Gap BUN Creatinine Est GFR ( Amer) Est GFR (Non-Af Amer) BUN/Creatinine Ratio Glucose POC Glucose (mg/dL) 162 H Calcium Magnesium Microbiology and Other Data: Microbiology 07/26/17 12:15 Tissue - Other Wound Gram Stain - Final 07/26/17 12:15 Tissue - Other Tissue Culture - Final No Growth Day 4 07/26/17 12:15 Tissue - Other Acid Fast Bacilli Smear - Final 07/24/17 16:08 Urine Urine Culture - Final No Growth (<1,000 CFU/mL) 07/24/17 17:43 Nasal Nasal Screen MRSA (PCR)(JEAN CARLOS) - Final Mrsa Not Detected Assess/Plan/Problems-Billing Assessment: 51 yo male PMH OHS, chronic hypoxic respiratory failure 2/2 OHS (on 5L, cpap at night), diastolic CHF, IDDM, Afib, Osteomyelitis s/p right 2nd toe amputation , recent MRSA bacteremia and left foot infection on 6 weeks IV vancomycin p/w chest pressure, weight gain, rapidly enlarging right chest swelling near a previously known [id number] lipoma w/ some erythema. Acute diastolic CHF exacerbation in setting of pt stopping his torsemide and now Severe pHTN on ECHO. elevated DDimer. CT chest angio w/o e/o of central PE but extremely limited study given body habitus. on Xarelto already for Afib. Diuresing aggresively (had gained 40kg total in 3 months) - Patient Problems (1) Acute on chronic diastolic (congestive) heart failure Current Visit: No Status: Acute Priority: High Code(s): I50.33 - ACUTE ON CHRONIC DIASTOLIC (CONGESTIVE) HEART FAILURE SNOMED Code(s): 792241791 Comment: decreased lasix 60mg IV q8 from q12 Daily weights. strict i/o. Steady decline spironolactone home was torsemide 20mg daily but had refused it for few weeks it sounds like. ECHO with severe pHTN, e/o right sided volume overload. DDimer also elevated. CT chest angiogram w/o e/o central PE but otherwise limited study. is on xarelto so it would be a treatment failure if so. appreciate Dr.Kodali mojica. she will try to arrange outpatient sleep study after discharge as may benefit from bipap with additional pressure control ventilation (Bipap-AVAPS) (2) Mass of right chest wall Current Visit: Yes Status: Acute Code(s): R22.2 - LOCALIZED SWELLING, MASS AND LUMP, TRUNK SNOMED Code(s): 155117694 Comment: in setting of previously known [id number] mass from Jun 2016 thought at time lipoma. Rapid growth in last 4 weeks with now pain. ddx would include liposarcoma or other malignancy vs just edema exaccerbating underlying lipoma Appreciate pathology assistance with tissue biopsy 07/26. no AFB or orgs on gram stain. Culture NGTD. However only serosanguinous FLUID obtained with a small needle. Have asked Dr. Leon to attempt IR guided biopsy to sample the actual lipoma. No yash lymphadenoapthy on CT chest/abd/pelvis though limited study. (3) Anemia Current Visit: No Status: Acute Priority: High Onset Date: 06/10/14 Code (s): D64.9 - ANEMIA, UNSPECIFIED SNOMED Code(s): 489048841 Comment: normocytic but elevated RDW. On xarelto for Afib iron deficient, now on ferrous gluconate (started this admission) iron 27% iron sat 9% ferritin 111. add stool guiac. (still pending) (4) Cellulitis Current Visit: No Status: Acute Code(s): L03.90 - CELLULITIS, UNSPECIFIED SNOMED Code(s): 962499158 Comment: right chest with erythema and inflammatory skin changes on CT chest. continue vancomycin (on previously for 4-5 weeks), and now ceftriaxone. ID was consulted. appreciate recs. (5) Atrial fibrillation Current Visit: No Status: Acute Priority: High Code(s): I48.91 - UNSPECIFIED ATRIAL FIBRILLATION SNOMED Code(s): 00127010 Comment: Continue metoprolol; continue Xarelto replete lytes Mg>2, K>4. monitor closely given aggressive diuresis. (6) Chronic respiratory failure Current Visit: No Status: Acute Code(s): J96.10 - CHRONIC RESPIRATORY FAILURE, UNSP W HYPOXIA OR HYPERCAPNIA SNOMED Code(s): 67888522 Comment: Pt with chronic hypoxic respiratory failure secondary to COPD and obesity hypoventilation syndrome. Now also severe pHTN. appreciate Dr. Carol recs. also now volume overloaded 2/2 acute on chronic diastolic CHF. diruresis. Continue supplemental O2. (7) Morbid obesity Current Visit: No Status: Acute Code(s): E66.01 - MORBID (SEVERE) OBESITY DUE TO EXCESS CALORIES SNOMED Code(s): 757727760 Comment: Encourage diet modification. (8) Diabetes mellitus Current Visit: No Status: Acute Code(s): E11.9 - TYPE 2 DIABETES MELLITUS WITHOUT COMPLICATIONS SNOMED Code(s): 20511735 Comment: continue lantus 18U qhs. continue lispro 10 units with each meal A1C 7.3 on 07/12/17 (9) MRSA (methicillin resistant Staphylococcus aureus) Current Visit: No Status: Chronic Code(s): A49.02 - METHICILLIN RESIS STAPH INFECTION, UNSP SITE SNOMED Code(s): 691763918 Comment: MRSA bacteremia and wound infection in Jun 2017. has PICC 07/05 continue IV vancomycin. goal trough 15-20 ID consulted. dosing per pharmacy. (10) Pleural effusion Current Visit: Yes Status: Acute Code(s): J90 - PLEURAL EFFUSION, NOT ELSEWHERE CLASSIFIED SNOMED Code(s): 67564333 Comment: in setting of severe pHTN, diastolic failure. appreciate Dr. Carol albarran Status and Disposition: medicine inpatient for continued diuresis
[2017-07-30] MEDS ORDERED: CEFTRIAXONE IVPB SCH (18:00)
[2017-07-30] MEDS ORDERED: NS 0.9% IVPB SCH (18:00)
[2017-07-30] MEDS: Acetaminophen TAB* 325 MG PO PRN (20:08)
[2017-07-30] MEDS: Insulin GLARGINE(*) 1 UNITS UNIT SUBCUT SCH (21:46)
[2017-07-31] MEDS: Levothyroxine TAB* 100 MCG TAB PO SCH (06:00)
[2017-07-31] MEDS: Acetaminophen TAB* 325 MG PO PRN (06:01)
[2017-07-31] MEDS: oxyCODONE TAB* 5 MG TAB PO PRN ×2 (06:01→21:56)
[2017-07-31] MEDS ORDERED: Alteplase (CATHFLO)* 2 MG VIAL IV ONE (06:32)
[2017-07-31 07:49] LABS: ABS Basophils 0.1 10^3/ul (0-0.2); ABS Eosinophils 0.9 10^3/ul (0-0.6); ABS Lymphocytes 0.5 10^3/ul (1.0-4.8); ABS Monocytes 0.6 10^3/ul (0-0.8); ABS Neutrophils 6.4 10^3/ul (1.5-7.7); ABS Nucleated RBC 0 10^3/ul; Eosinophil % 10.9 % (0-6); Hematocrit 31 % (42-52); Hemoglobin 9.5 g/dl (14.0-18.0); Lymphocyte % 5.7 % (25-47); Mean Corpuscular HGB Conc 31 g/dl (31-36); Mean Corpuscular Hemoglobin 26 pg (27-31); Mean Corpuscular Volume 85 fL (80-94); Mean Platelet Volume 7.5 um3 (7.4-10.4); Nucleated Red Blood Cells % 0; Platelet Count 356 10^3/ul (150-450); Red Cell Distribution Width 18 % (10.5-15); White Blood Count 8.6 10^3/ul (3.5-10.8)
[2017-07-31] MEDS: Furosemide IV* 10 MG/ML 10 ML VIAL (100 MG) IV SCH ×2 (08:35→17:57)
[2017-07-31] MEDS: Mometasone/Formoter 200/5 MDI INH SCH ×2 (08:41→19:38)
[2017-07-31] MEDS: Simethicone TAB* 80 MG TAB.CHEW PO PRN ×2 (10:00→21:56)
[2017-07-31] MEDS: Polyethylene Glycol 3350* 17 GM PACKET PO SCH ×2 (10:01→21:58)
[2017-07-31] MEDS: Metoprolol Tartrate TAB* 25 MG PO SCH ×2 (10:01→21:56)
[2017-07-31] MEDS: Ferrous Gluconate TAB* 324 MG TAB PO SCH (10:01)
[2017-07-31] MEDS: Cholecalciferol TAB* 1000 UNITS PO SCH (10:01)
[2017-07-31] MEDS: Tamsulosin CAP* 0.4 MG PO SCH (10:01)
[2017-07-31] MEDS: Spironolactone TAB* 25 MG PO SCH (10:01)
[2017-07-31] MEDS: Atorvastatin* 40 MG TAB PO SCH (10:01)
[2017-07-31] MEDS: Insulin LISPRO* 1 UNITS UNIT SUBCUT SCH ×3 (10:01→17:58)
[2017-07-31] MEDS: Allopurinol TAB* 300 MG PO SCH (10:02)
[2017-07-31] MEDS: Nystatin CREAM* 15 GM TUBE TOPICAL SCH ×2 (10:04→21:58)
[2017-07-31 10:05] LABS: Hematocrit 37 % (42-52); Hemoglobin 11.4 g/dl (14.0-18.0); Mean Corpuscular HGB Conc 31 g/dl (31-36); Mean Corpuscular Hemoglobin 26 pg (27-31); Mean Corpuscular Volume 86 fL (80-94); Platelet Count 286 10^3/ul (150-450); Red Blood Count 4.36 10^6/ul (4.0-5.4); Red Cell Distribution Width 19 % (10.5-15); White Blood Count 7.7 10^3/ul (3.5-10.8)
[2017-07-31] MEDS: Rivaroxaban TAB(*) 20 MG TAB PO SCH (10:42)
[2017-07-31 11:51] LABS: INR 1.41 (0.77-1.02)
--- NOTE | 2017-07-31 13:13 | PN ---
Subjective Date of Service: 07/31/17 Interval History: Pt is feeling ok. Overall he feels he has lost quite a bit of fluid. He denies any SOB. He thinks the ? lipoma of the R chest wall is a little smaller in size. He does c/o gas discomfort and discomfort around his abdominal wall hernia. Objective Active Medications: Acetaminophen (Tylenol Tab*) 325 mg PO Q6H PRN PRN Reason: PAIN Last Admin: 07/31/17 06:01 Dose: 325 mg Albuterol (Ventolin 2.5 Mg/3 Ml Neb.Christy*) 2.5 mg INH Q4H PRN PRN Reason: SOB/WHEEZING Last Admin: 07/30/17 19:47 Dose: 2.5 mg Allopurinol (Zyloprim Tab*) 300 mg PO DAILY [facility] Last Admin: 07/31/17 10:02 Dose: 300 mg Atorvastatin Calcium (Lipitor*) 40 mg PO DAILY [facility] Last Admin: 07/31/17 10:01 Dose: 40 mg Cholecalciferol (Vitamin D Tab*) 1,000 units PO DAILY [facility] Last Admin: 07/31/17 10:01 Dose: 1,000 units Dextrose (D50w Syringe 50 Ml*) 12.5 gm IV PUSH .FOR FS < 60 - SS PRN PRN Reason: FS < 60 Docusate Sodium (Colace Cap*) 100 mg PO BID PRN PRN Reason: CONSTIPATION Ferrous Gluconate (Fergon Tab*) 324 mg PO DAILY [facility] Last Admin: 07/31/17 10:01 Dose: 324 mg Fluticasone Propionate (Flonase Nasal [place] 50mcg*) 2 spray BOTH NARES DAILY PRN PRN Reason: Allergy Symptoms Last Admin: 07/30/17 08:46 Dose: 2 spray Furosemide (Lasix Iv*) 60 mg IV 0800,1700 [facility] Last Admin: 07/31/17 08:35 Dose: 60 mg Guaifenesin (Mucinex*) 600 mg PO Q12H PRN PRN Reason: congestion Heparin Sodium (Porcine) (Heparin Flush Picc/Ml/Cvc(*)) 1 - 3 ml FLUSH 0600, 1800 [facility] PRN Reason: Protocol Last Admin: 07/31/17 10:14 Dose: 1 ml Vancomycin HCl 1,000 mg/ (Sodium Chloride) 250 mls @ 166.667 mls/hr IVPB Q24H [facility] Last Admin: 07/30/17 13:52 Dose: 166.667 mls/hr Ceftriaxone Sodium 1,000 mg/ (Sodium Chloride) 10 mls @ 40 mls/hr IVPB DAILY@ 1800 [facility] Last Admin: 07/30/17 18:42 Dose: 40 mls/hr Insulin Glargine (Lantus(*)) 18 units SUBCUT BEDTIME [facility] Last Admin: 07/30/17 21:46 Dose: 18 units Insulin Human Lispro (Humalog*) 10 units SUBCUT TID [facility] Last Admin: 07/31/17 10:01 Dose: 10 units Levothyroxine Sodium (Synthroid Tab*) 200 mcg PO DAILY@0600 [facility] Last Admin: 07/31/17 06:00 Dose: 200 mcg Metoprolol Tartrate (Lopressor Tab*) 25 mg PO BID [facility] Last Admin: 07/31/17 10:01 Dose: 25 mg Mometasone Furoate/Formoterol Fumar (Dulera 200/5 Mdi*) 2 puff INH BID [facility] PRN Reason: Protocol Last Admin: 07/31/17 08:41 Dose: 2 puff Nystatin (Nystatin Cream*) 1 applic TOPICAL BID [facility] Last Admin: 07/31/17 10:04 Dose: 1 applic Oxycodone HCl (Roxycodone Tab*) 5 mg PO Q4H PRN PRN Reason: PAIN - SEVERE Last Admin: 07/31/17 06:01 Dose: 5 mg Pharmacy Consult (Vancomycin Per Pharmacy*) 1 note FOLLOW UP .VANC PER PHARMACY [facility] Pharmacy Profile Note (Vancomycin Trough Check) 1 note FOLLOW UP 1330 ONE Stop: 07/31/17 13:31 Phenyleph/Shark Oil/Min Oil/Petrol (Preparation H*) 1 applic [place] Q8H PRN PRN Reason: PAIN Polyethylene Glycol/Electrolytes (Miralax*) 17 gm PO BID [facility] Last Admin: 07/31/17 10:01 Dose: 17 gm Rivaroxaban (Xarelto(*)) 20 mg PO DAILY [facility] Last Admin: 07/31/17 10:42 Dose: Not Given Senna (Senokot Tab*) 1 tab PO BEDTIME PRN PRN Reason: CONSTIPATION Simethicone (Mylicon Tab*) 80 mg PO Q8H PRN PRN Reason: bloating Last Admin: 07/31/17 10:00 Dose: 80 mg Spironolactone (Aldactone Tab*) 50 mg PO DAILY [facility] Last Admin: 07/31/17 10:01 Dose: 50 mg Tamsulosin HCl (Flomax Cap*) 0.4 mg PO DAILY [facility] Last Admin: 07/31/17 10:01 Dose: 0.4 mg Vital Signs - 8 hr 07/31/17 07/31/17 07/31/17 06:01 07:41 08:00 Temperature 97.8 F Pulse Rate 71 Respiratory 20 15 16 Rate Blood Pressure 130/57 (mmHg) O2 Sat by Pulse 99 Oximetry 07/31/17 07/31/17 10:43 11:42 Temperature 98.7 F Pulse Rate 121 Respiratory 16 15 Rate Blood Pressure 131/69 (mmHg) O2 Sat by Pulse 99 Oximetry Oxygen Devices in Use Now: Nasal Cannula Appearance: Middle aged super morbidly obese male sitting up in bed, NAD Eyes: No Scleral Icterus Ears/Nose/Mouth/Throat: Mucous Membranes Moist Respiratory: Symmetrical Chest Expansion and Respiratory Effort, Clear to Auscultation - anteriorly Cardiovascular: NL Sounds; No Murmurs; No JVD, RRR, - - improved anasarca from my last interaction (admission) still with lower abdominal wall edema, edema of the R chest wall lipoma Abdominal: NL Sounds; No Tenderness; No Distention Extremities: No Clubbing, Cyanosis Skin: No Nodules or Sclerosis, - - dry scaly skin to L lower leg Neurological: Alert and Oriented x 3 Result Diagrams: 07/31/17 08:50 07/31/17 13:08 Additional Lab and Data: Laboratory Results - last 24 hr 07/29/17 07/29/17 07/30/17 17:17 21:45 06:05 Sodium 134 Potassium 4.3 Chloride 89 L Carbon Dioxide 43 H* Anion Gap 2 BUN 47 H Creatinine 1.31 H Est GFR ( Amer) 73.9 Est GFR (Non-Af Amer) 57.5 BUN/Creatinine Ratio 35.9 H Glucose 144 H POC Glucose (mg/dL) 175 H 188 H Calcium 9.2 Magnesium 1.8 L 07/30/17 07:47 Sodium Potassium Chloride Carbon Dioxide Anion Gap BUN Creatinine Est GFR ( Amer) Est GFR (Non-Af Amer) BUN/Creatinine Ratio Glucose POC Glucose (mg/dL) 162 H Calcium Magnesium Microbiology and Other Data: Microbiology 07/26/17 12:15 Tissue - Other Wound Gram Stain - Final 07/26/17 12:15 Tissue - Other Tissue Culture - Final No Growth Day 4 07/26/17 12:15 Tissue - Other Acid Fast Bacilli Smear - Final 07/24/17 16:08 Urine Urine Culture - Final No Growth (<1,000 CFU/mL) 07/24/17 17:43 Nasal Nasal Screen MRSA (PCR)(JEAN CARLOS) - Final Mrsa Not Detected Assess/Plan/Problems-Billing 51 yo male PMH OHS, chronic hypoxic respiratory failure 2/2 OHS (on 5L, cpap at night), diastolic CHF, IDDM, Afib, Osteomyelitis s/p right 2nd toe amputation , recent MRSA bacteremia and left foot infection on 6 weeks IV vancomycin p/w chest pressure, weight gain, rapidly enlarging right chest swelling near a previously known [id number] lipoma w/ some erythema. - Patient Problems (1) Mass of right chest wall Current Visit: Yes Status: Acute Code(s): R22.2 - LOCALIZED SWELLING, MASS AND LUMP, TRUNK SNOMED Code(s): 437317748 Comment: The plan is for the patient to have a biopsy of the R chest wall mass/possible lipoma today. Await acceptable PTT value- when checked earlier today was markedly elevated but it was drawn off his PICC. (2) Acute on chronic diastolic (congestive) heart failure Current Visit: Yes Status: Acute Priority: High Code(s): I50.33 - ACUTE ON CHRONIC DIASTOLIC (CONGESTIVE) HEART FAILURE SNOMED Code(s): 808776743 Comment: The patient continues to have a steady decline in weight. Will continue lasix 60mg IV q12hr. Continue spironolactone as well. The patient needs an outpatient sleep study to see if he may benefit from BiPAP-AVAPS. I have explained to the patient that he needs to stay on the diuretic even if he thinks he does not need it. (3) Anemia Current Visit: Yes Status: Acute Priority: High Onset Date: 06/10/14 Code(s): D64.9 - ANEMIA, UNSPECIFIED SNOMED Code(s): 841808373 Comment: The patient is iron deficient-started on ferrous gluconate this admission. H/H is stable. Stool occult blood pending. (4) Atrial fibrillation Current Visit: Yes Status: Acute Code(s): I48.91 - UNSPECIFIED ATRIAL FIBRILLATION SNOMED Code(s): 10410080 Comment: Continue metoprolol and resume xarelto post core biopsy. He has been going in and out of afib (wiht HR up to the 130's). As HR is not controlled when in afib will try increasing the metoprolol up to 25mg TID. Will need to watch his BP closely as at times it has been soft. (5) Diabetes mellitus Current Visit: Yes Status: Acute Code(s): E11.9 - TYPE 2 DIABETES MELLITUS WITHOUT COMPLICATIONS SNOMED Code(s): 51834759 Comment: Blood sugars are generally under fair control. Continue lantus 18 units SQ daily and lispro 10untis TID with meals. His 70/30 has been discontinued. (6) CKD (chronic kidney disease) stage 3, GFR 30-59 ml/min Current Visit: No Status: Chronic Priority: Medium Code(s): N18.3 - CHRONIC KIDNEY DISEASE, STAGE 3 (MODERATE) SNOMED Code(s): 989494222 Comment: Creatinine is relatively stable despite very aggressive diuresis. Continue to follow while on IV lasix. (7) Hypertension Current Visit: No Status: Chronic Priority: Medium Code(s): I10 - ESSENTIAL (PRIMARY) HYPERTENSION SNOMED Code(s): 34363020 Comment: BP is under good control on metoprolol and spironolactone. Continue to monitor with increasing metoprolol dose. (8) Pulmonary embolism Current Visit: Yes Status: Acute Code(s): I26.99 - OTHER PULMONARY EMBOLISM WITHOUT ACUTE COR PULMONALE SNOMED Code(s): 52797086 Comment: Pt has h/o DVT/PE. Continue xarelto. (9) Morbid obesity Current Visit: Yes Status: Acute Code(s): E66.01 - MORBID (SEVERE) OBESITY DUE TO EXCESS CALORIES SNOMED Code(s): 950041473 Comment: Diagnosis noted. (10) DVT prophylaxis Current Visit: Yes Status: Acute Priority: Medium Onset Date: 06/10/14 Code(s): LEC9885 - SNOMED Code(s): 751715928 Comment: Xarelto (11) Full code status Current Visit: Yes Status: Acute Onset Date: 06/10/14 Code(s): Z78.9 - OTHER SPECIFIED HEALTH STATUS SNOMED Code(s): 582008840 Status and Disposition: .
[2017-07-31] MEDS ORDERED: Vancomycin Trough Check NOTE FOLLOW UP ONE (13:30)
[2017-07-31 14:25] LABS: Vancomycin Trough 17.1 mcg/mL
[2017-07-31] MEDS: Vancomycin(*) 1,000 MG in NS 0.9% 250 ML* 250 ML IVPB SCH (15:18)
--- NOTE | 2017-07-31 17:18 | RAD ---
INDICATION: Erythema and swelling overlying the lateral right chest COMPARISON: Chest CT July 26, 2017 The benefits and risks of procedure explained to the patient and the patient signed informed consent. Multiple images of the lateral right chest were obtained. The subcutaneous tissue with interdigitating fluid in question was identified and a percutaneous tract was determined. A time out was performed before beginning the procedure. The patient was prepped and draped in the usual sterile fashion. The skin and tissue overlying the lymph node were anesthetized with 1% lidocaine. Percutaneously, a fine needle aspiration was obtained and provided to the attending cytopathologist. The cytopathologist indicated that preliminary evaluation demonstrated adequate sampling for diagnosis. According to the same technique as above 2 additional fine-needle aspirations and 2 20-gauge core samples were acquired to assure adequate diagnostic volume. The post procedure ultrasound demonstrates no evidence for hematoma. The site was dressed with a sterile dressing. The patient tolerated procedure well without incident. IMPRESSION: Uncomplicated ultrasound-guided fine-needle aspiration and core biopsy of enlarged subcutaneous tissue overlying the lateral right chest.
[2017-07-31] MEDS: Albuterol 2.5 MG/3 ML NEB.SOL* (0.083%) INH PRN (19:38)
[2017-07-31] MEDS: Insulin GLARGINE(*) 1 UNITS UNIT SUBCUT SCH (21:56)
[2017-08-01] MEDS: Albuterol 2.5 MG/3 ML NEB.SOL* (0.083%) INH PRN ×2 (05:27→10:50)
[2017-08-01] MEDS: Levothyroxine TAB* 100 MCG TAB PO SCH (06:26)
[2017-08-01] MEDS: Mometasone/Formoter 200/5 MDI INH SCH ×2 (07:48→19:39)
[2017-08-01] MEDS: Furosemide IV* 10 MG/ML 10 ML VIAL (100 MG) IV SCH ×2 (08:18→16:31)
[2017-08-01] MEDS: Polyethylene Glycol 3350* 17 GM PACKET PO SCH ×2 (10:10→21:46)
[2017-08-01] MEDS: Insulin LISPRO* 1 UNITS UNIT SUBCUT SCH ×3 (10:15→17:42)
[2017-08-01] MEDS: Atorvastatin* 40 MG TAB PO SCH (10:16)
[2017-08-01] MEDS: Cholecalciferol TAB* 1000 UNITS PO SCH (10:17)
[2017-08-01] MEDS: Metoprolol Tartrate TAB* 25 MG PO SCH ×3 (10:17→21:52)
[2017-08-01] MEDS: Tamsulosin CAP* 0.4 MG PO SCH (10:17)
[2017-08-01] MEDS: Rivaroxaban TAB(*) 20 MG TAB PO SCH (10:17)
[2017-08-01] MEDS: Ferrous Gluconate TAB* 324 MG TAB PO SCH (10:17)
[2017-08-01] MEDS: Spironolactone TAB* 25 MG PO SCH (10:17)
[2017-08-01] MEDS: Allopurinol TAB* 300 MG PO SCH (10:17)
[2017-08-01] MEDS: Nystatin CREAM* 15 GM TUBE TOPICAL SCH ×2 (10:19→21:53)
[2017-08-01] MEDS: oxyCODONE TAB* 5 MG TAB PO PRN ×2 (10:24→21:58)
[2017-08-01] MEDS: Simethicone TAB* 80 MG TAB.CHEW PO PRN ×3 (10:24→21:58)
[2017-08-01] MEDS ORDERED: acetaZOLAMIDE VIAL* 500 MG in NS 0.9% 50 ML* 50 ML IVPB ONE (13:30)
--- NOTE | 2017-08-01 13:32 | PN ---
Subjective Date of Service: 08/01/17 Interval History: Pt is feeling ok. He states he continues to have drainage from the biopsy site of the R chest wall. He denies any pain. No SOB currently. He does state [place] his O2 was not reconnected and his O2 sat dropped to 52%. He felt lightheaded but did not feel SOB with this. Objective Active Medications: Acetaminophen (Tylenol Tab*) 325 mg PO Q6H PRN PRN Reason: PAIN Last Admin: 07/31/17 06:01 Dose: 325 mg Albuterol (Ventolin 2.5 Mg/3 Ml Neb.Christy*) 2.5 mg INH Q4H PRN PRN Reason: SOB/WHEEZING Last Admin: 08/01/17 10:50 Dose: 2.5 mg Allopurinol (Zyloprim Tab*) 300 mg PO DAILY [facility] Last Admin: 08/01/17 10:17 Dose: 300 mg Atorvastatin Calcium (Lipitor*) 40 mg PO DAILY [facility] Last Admin: 08/01/17 10:16 Dose: 40 mg Cholecalciferol (Vitamin D Tab*) 1,000 units PO DAILY [facility] Last Admin: 08/01/17 10:17 Dose: 1,000 units Dextrose (D50w Syringe 50 Ml*) 12.5 gm IV PUSH .FOR FS < 60 - SS PRN PRN Reason: FS < 60 Docusate Sodium (Colace Cap*) 100 mg PO BID PRN PRN Reason: CONSTIPATION Ferrous Gluconate (Fergon Tab*) 324 mg PO DAILY [facility] Last Admin: 08/01/17 10:17 Dose: 324 mg Fluticasone Propionate (Flonase Nasal [place] 50mcg*) 2 spray BOTH NARES DAILY PRN PRN Reason: Allergy Symptoms Last Admin: 07/30/17 08:46 Dose: 2 spray Furosemide (Lasix Iv*) 60 mg IV 0800,1700 [facility] Last Admin: 08/01/17 08:18 Dose: 60 mg Guaifenesin (Mucinex*) 600 mg PO Q12H PRN PRN Reason: congestion Heparin Sodium (Porcine) (Heparin Flush Picc/Ml/Cvc(*)) 1 - 3 ml FLUSH 0600, 1800 [facility] PRN Reason: Protocol Last Admin: 08/01/17 06:33 Dose: 1 ml Vancomycin HCl 1,000 mg/ (Sodium Chloride) 250 mls @ 166.667 mls/hr IVPB Q24H [facility] Stop: 08/01/17 13:59 Last Admin: 07/31/17 15:18 Dose: 166.667 mls/hr Vancomycin HCl 750 mg/ Sodium (Chloride) 250 mls @ 166.667 mls/hr IVPB Q24H [facility] Acetazolamide Sodium 500 mg/ (Sodium Chloride) 50 mls @ 100 mls/hr IVPB ONCE ONE Stop: 08/01/17 13:59 Insulin Glargine (Lantus(*)) 22 units SUBCUT BEDTIME [facility] Insulin Human Lispro (Humalog*) 10 units SUBCUT TID [facility] Last Admin: 08/01/17 10:15 Dose: 10 units Levothyroxine Sodium (Synthroid Tab*) 200 mcg PO DAILY@0600 [facility] Last Admin: 08/01/17 06:26 Dose: 200 mcg Metoprolol Tartrate (Lopressor Tab*) 25 mg PO TID [facility] Last Admin: 08/01/17 10:17 Dose: 25 mg Mometasone Furoate/Formoterol Fumar (Dulera 200/5 Mdi*) 2 puff INH BID [facility] PRN Reason: Protocol Last Admin: 08/01/17 07:48 Dose: 2 puff Nystatin (Nystatin Cream*) 1 applic TOPICAL BID [facility] Last Admin: 08/01/17 10:19 Dose: 1 applic Oxycodone HCl (Roxycodone Tab*) 5 mg PO Q4H PRN PRN Reason: PAIN - SEVERE Last Admin: 08/01/17 10:24 Dose: 5 mg Pharmacy Consult (Vancomycin Per Pharmacy*) 1 note FOLLOW UP .VANC PER PHARMACY [facility] Pharmacy Profile Note (Vancomycin Trough Check) 1 note FOLLOW UP 1400 ONE Stop: 08/04/17 14:01 Phenyleph/Shark Oil/Min Oil/Petrol (Preparation H*) 1 applic [place] Q8H PRN PRN Reason: PAIN Polyethylene Glycol/Electrolytes (Miralax*) 17 gm PO BID [facility] Last Admin: 08/01/17 10:10 Dose: Not Given Rivaroxaban (Xarelto(*)) 20 mg PO DAILY [facility] Last Admin: 08/01/17 10:17 Dose: 20 mg Senna (Senokot Tab*) 1 tab PO BEDTIME PRN PRN Reason: CONSTIPATION Simethicone (Mylicon Tab*) 80 mg PO Q8H PRN PRN Reason: bloating Last Admin: 08/01/17 10:24 Dose: 80 mg Spironolactone (Aldactone Tab*) 50 mg PO DAILY [facility] Last Admin: 08/01/17 10:17 Dose: 50 mg Tamsulosin HCl (Flomax Cap*) 0.4 mg PO DAILY [facility] Last Admin: 08/01/17 10:17 Dose: 0.4 mg Vital Signs - 8 hr 08/01/17 08/01/17 08/01/17 05:29 06:33 09:05 Temperature 99.2 F Pulse Rate 66 74 Respiratory 16 16 22 Rate Blood Pressure 146/39 (mmHg) O2 Sat by Pulse 99 100 Oximetry 08/01/17 08/01/17 08/01/17 09:06 10:24 10:53 Temperature 99.2 F Pulse Rate 74 74 Respiratory 22 20 19 Rate Blood Pressure 146/39 (mmHg) O2 Sat by Pulse 100 100 Oximetry 08/01/17 11:04 Temperature Pulse Rate Respiratory 22 Rate Blood Pressure (mmHg) O2 Sat by Pulse Oximetry Oxygen Devices in Use Now: Nasal Cannula - 5L Appearance: Super morbidly obese middle aged male sitting up in bed, NAD Eyes: No Scleral Icterus Ears/Nose/Mouth/Throat: Mucous Membranes Moist Respiratory: Symmetrical Chest Expansion and Respiratory Effort, Clear to Auscultation - anteriorly Cardiovascular: NL Sounds; No Murmurs; No JVD, RRR, - - decreased LE edema, edema of very large lipoma on R chest wall and abdominal wall lessening, tissues are softer Abdominal: NL Sounds; No Tenderness; No Distention Extremities: No Clubbing, Cyanosis Skin: No Nodules or Sclerosis Neurological: Alert and Oriented x 3 Result Diagrams: 07/31/17 08:50 08/01/17 07:35 Additional Lab and Data: Laboratory Results - last 24 hr 07/29/17 07/29/17 07/30/17 17:17 21:45 06:05 Sodium 134 Potassium 4.3 Chloride 89 L Carbon Dioxide 43 H* Anion Gap 2 BUN 47 H Creatinine 1.31 H Est GFR ( Amer) 73.9 Est GFR (Non-Af Amer) 57.5 BUN/Creatinine Ratio 35.9 H Glucose 144 H POC Glucose (mg/dL) 175 H 188 H Calcium 9.2 Magnesium 1.8 L 07/30/17 07:47 Sodium Potassium Chloride Carbon Dioxide Anion Gap BUN Creatinine Est GFR ( Amer) Est GFR (Non-Af Amer) BUN/Creatinine Ratio Glucose POC Glucose (mg/dL) 162 H Calcium Magnesium Microbiology and Other Data: Microbiology 07/26/17 12:15 Tissue - Other Wound Gram Stain - Final 07/26/17 12:15 Tissue - Other Tissue Culture - Final No Growth Day 4 07/26/17 12:15 Tissue - Other Acid Fast Bacilli Smear - Final 07/24/17 16:08 Urine Urine Culture - Final No Growth (<1,000 CFU/mL) 07/24/17 17:43 Nasal Nasal Screen MRSA (PCR)(JEAN CARLOS) - Final Mrsa Not Detected Assess/Plan/Problems-Billing 51 yo male PMH OHS, chronic hypoxic respiratory failure 2/2 OHS (on 5L, cpap at night), diastolic CHF, IDDM, Afib, Osteomyelitis s/p right 2nd toe amputation , recent MRSA bacteremia and left foot infection on 6 weeks IV vancomycin p/w chest pressure, weight gain, rapidly enlarging right chest swelling near a previously known [id number] lipoma w/ some erythema. - Patient Problems (1) Mass of right chest wall Current Visit: Yes Status: Acute Code(s): R22.2 - LOCALIZED SWELLING, MASS AND LUMP, TRUNK SNOMED Code(s): 249824422 Comment: Cytology shows minute fragment of benign fibrous tissue. Likely very large lipoma that is edematous. (2) Acute on chronic diastolic (congestive) heart failure Current Visit: Yes Status: Acute Priority: High Code(s): I50.33 - ACUTE ON CHRONIC DIASTOLIC (CONGESTIVE) HEART FAILURE SNOMED Code(s): 577335219 Comment: He continues to have good diuresis with lasix 60mg IV BID. Will give a dose of diamox today as he has developed a contraction alkalosis. Continue spironolactone. His renal function is holding steady. Will continue to diurese. (3) Anemia Current Visit: Yes Status: Acute Priority: High Onset Date: 06/10/14 Code(s): D64.9 - ANEMIA, UNSPECIFIED SNOMED Code(s): 806816642 Comment: The patient is iron deficient-started on ferrous gluconate this admission. H/H is stable. Stool occult blood pending. (4) Atrial fibrillation Current Visit: Yes Status: Acute Code(s): I48.91 - UNSPECIFIED ATRIAL FIBRILLATION SNOMED Code(s): 55198181 Comment: Pt has been bouncing in and out of afib. Continue metoprolol 25mg TID and monitor for improved HR control. Continue xarelto. (5) Diabetes mellitus Current Visit: Yes Status: Acute Code(s): E11.9 - TYPE 2 DIABETES MELLITUS WITHOUT COMPLICATIONS SNOMED Code(s): 49609960 Comment: Sugars are persistently above 150-will increase lantus to 22 units SQ qHS and continue lispro 10 units with meals. (6) CKD (chronic kidney disease) stage 3, GFR 30-59 ml/min Current Visit: Yes Status: Chronic Code(s): N18.3 - CHRONIC KIDNEY DISEASE, STAGE 3 (MODERATE) SNOMED Code(s): 979533423 Comment: Creatinine is relatively stable despite very aggressive diuresis. Continue to follow while on IV lasix. (7) Hypertension Current Visit: Yes Status: Chronic Priority: Medium Code(s): I10 - ESSENTIAL (PRIMARY) HYPERTENSION SNOMED Code(s): 59788172 Comment: BP is under good control on metoprolol and spironolactone. Continue to monitor with increased metoprolol dose. (8) Pulmonary embolism Current Visit: Yes Status: Acute Code(s): I26.99 - OTHER PULMONARY EMBOLISM WITHOUT ACUTE COR PULMONALE SNOMED Code(s): 13612265 Comment: Pt has h/o DVT/PE. Continue xarelto. (9) Morbid obesity Current Visit: Yes Status: Acute Code(s): E66.01 - MORBID (SEVERE) OBESITY DUE TO EXCESS CALORIES SNOMED Code(s): 478448645 Comment: Diagnosis noted. (10) DVT prophylaxis Current Visit: Yes Status: Acute Priority: Medium Onset Date: 06/10/14 Code(s): CGF0806 - SNOMED Code(s): 714130652 Comment: Xarelto (11) Full code status Current Visit: Yes Status: Acute Onset Date: 06/10/14 Code(s): Z78.9 - OTHER SPECIFIED HEALTH STATUS SNOMED Code(s): 863117879 Status and Disposition: .
[2017-08-01] MEDS: Vancomycin(*) 750 MG in NS 0.9% 250 ML* 250 ML IVPB SCH (16:41)
[2017-08-01] MEDS: Moisturizing CREAM* 120 GM JAR TOPICAL SCH ×2 (16:42→21:53)
[2017-08-01] MEDS: Insulin GLARGINE(*) 1 UNITS UNIT SUBCUT SCH (21:49)
[2017-08-02] MEDS: Albuterol 2.5 MG/3 ML NEB.SOL* (0.083%) INH PRN ×2 (05:04→17:41)
[2017-08-02] MEDS: Levothyroxine TAB* 100 MCG TAB PO SCH (05:20)
[2017-08-02] MEDS: oxyCODONE TAB* 5 MG TAB PO PRN ×2 (05:21→20:21)
[2017-08-02] MEDS: Simethicone TAB* 80 MG TAB.CHEW PO PRN ×4 (05:26→18:09)
[2017-08-02] MEDS: Mometasone/Formoter 200/5 MDI INH SCH ×2 (08:18→19:31)
[2017-08-02] MEDS: Allopurinol TAB* 300 MG PO SCH (09:07)
[2017-08-02] MEDS: Atorvastatin* 40 MG TAB PO SCH (09:07)
[2017-08-02] MEDS: Metoprolol Tartrate TAB* 25 MG PO SCH ×3 (09:07→21:29)
[2017-08-02] MEDS: Tamsulosin CAP* 0.4 MG PO SCH (09:07)
[2017-08-02] MEDS: Rivaroxaban TAB(*) 20 MG TAB PO SCH (09:07)
[2017-08-02] MEDS: Polyethylene Glycol 3350* 17 GM PACKET PO SCH ×2 (09:08→21:29)
[2017-08-02] MEDS: Spironolactone TAB* 25 MG PO SCH (09:08)
[2017-08-02] MEDS: Cholecalciferol TAB* 1000 UNITS PO SCH (09:08)
[2017-08-02] MEDS: Ferrous Gluconate TAB* 324 MG TAB PO SCH (09:08)
[2017-08-02] MEDS: Insulin LISPRO* 1 UNITS UNIT SUBCUT SCH ×3 (09:10→18:09)
[2017-08-02] MEDS: Furosemide IV* 10 MG/ML 10 ML VIAL (100 MG) IV SCH ×2 (09:11→17:05)
[2017-08-02] MEDS: Moisturizing CREAM* 120 GM JAR TOPICAL SCH ×3 (09:16→21:33)
[2017-08-02] MEDS: Nystatin CREAM* 15 GM TUBE TOPICAL SCH ×2 (09:20→21:33)
[2017-08-02] MEDS: Vancomycin(*) 750 MG in NS 0.9% 250 ML* 250 ML IVPB SCH (14:31)
--- NOTE | 2017-08-02 14:57 | PN ---
Subjective Date of Service: 08/02/17 Interval History: Pt states the R lateral chest wall mass is firmer and larger today than yesterday. He denies any SOB. He states he has intermittent abdominal pain that is never really changed. Objective Active Medications: Acetaminophen (Tylenol Tab*) 325 mg PO Q6H PRN PRN Reason: PAIN Last Admin: 07/31/17 06:01 Dose: 325 mg Albuterol (Ventolin 2.5 Mg/3 Ml Neb.Christy*) 2.5 mg INH Q4H PRN PRN Reason: SOB/WHEEZING Last Admin: 08/02/17 05:04 Dose: 2.5 mg Allopurinol (Zyloprim Tab*) 300 mg PO DAILY [facility] Last Admin: 08/02/17 09:07 Dose: 300 mg Atorvastatin Calcium (Lipitor*) 40 mg PO DAILY [facility] Last Admin: 08/02/17 09:07 Dose: 40 mg Cholecalciferol (Vitamin D Tab*) 1,000 units PO DAILY [facility] Last Admin: 08/02/17 09:08 Dose: 1,000 units Dextrose (D50w Syringe 50 Ml*) 12.5 gm IV PUSH .FOR FS < 60 - SS PRN PRN Reason: FS < 60 Docusate Sodium (Colace Cap*) 100 mg PO BID PRN PRN Reason: CONSTIPATION Last Admin: 08/01/17 21:52 Dose: 100 mg Ferrous Gluconate (Fergon Tab*) 324 mg PO DAILY [facility] Last Admin: 08/02/17 09:08 Dose: 324 mg Fluticasone Propionate (Flonase Nasal [place] 50mcg*) 2 spray BOTH NARES DAILY PRN PRN Reason: Allergy Symptoms Last Admin: 07/30/17 08:46 Dose: 2 spray Furosemide (Lasix Iv*) 60 mg IV 0800,1700 [facility] Last Admin: 08/02/17 09:11 Dose: 60 mg Guaifenesin (Mucinex*) 600 mg PO Q12H PRN PRN Reason: congestion Heparin Sodium (Porcine) (Heparin Flush Picc/Ml/Cvc(*)) 1 - 3 ml FLUSH 0600, 1800 [facility] PRN Reason: Protocol Last Admin: 08/02/17 05:31 Dose: 1 ml Vancomycin HCl 750 mg/ Sodium (Chloride) 250 mls @ 166.667 mls/hr IVPB Q24H [facility] Last Admin: 08/02/17 14:31 Dose: 166.667 mls/hr Acetazolamide Sodium 500 mg/ (Sodium Chloride) 50 mls @ 100 mls/hr IVPB ONCE ONE Stop: 08/02/17 15:29 Insulin Glargine (Lantus(*)) 22 units SUBCUT BEDTIME [facility] Last Admin: 08/01/17 21:49 Dose: 22 units Insulin Human Lispro (Humalog*) 10 units SUBCUT TID [facility] Last Admin: 08/02/17 13:06 Dose: 10 units Levothyroxine Sodium (Synthroid Tab*) 200 mcg PO DAILY@0600 [facility] Last Admin: 08/02/17 05:20 Dose: 200 mcg Metoprolol Tartrate (Lopressor Tab*) 25 mg PO TID [facility] Last Admin: 08/02/17 14:30 Dose: 25 mg Mometasone Furoate/Formoterol Fumar (Dulera 200/5 Mdi*) 2 puff INH BID [facility] PRN Reason: Protocol Last Admin: 08/02/17 08:18 Dose: 2 puff Multi-Ingredient Ointment (Hydrocerin*) 1 applic TOPICAL TID [facility] Last Admin: 08/02/17 14:32 Dose: 1 applic Nystatin (Nystatin Cream*) 1 applic TOPICAL BID [facility] Last Admin: 08/02/17 09:20 Dose: 1 applic Oxycodone HCl (Roxycodone Tab*) 5 mg PO Q4H PRN PRN Reason: PAIN - SEVERE Last Admin: 08/02/17 05:21 Dose: 5 mg Pharmacy Consult (Vancomycin Per Pharmacy*) 1 note FOLLOW UP .VANC PER PHARMACY [facility] Pharmacy Profile Note (Vancomycin Trough Check) 1 note FOLLOW UP 1400 ONE Stop: 08/04/17 14:01 Phenyleph/Shark Oil/Min Oil/Petrol (Preparation H*) 1 applic [place] Q8H PRN PRN Reason: PAIN Polyethylene Glycol/Electrolytes (Miralax*) 17 gm PO BID [facility] Last Admin: 08/02/17 09:08 Dose: 17 gm Rivaroxaban (Xarelto(*)) 20 mg PO DAILY [facility] Last Admin: 08/02/17 09:07 Dose: 20 mg Senna (Senokot Tab*) 1 tab PO BEDTIME PRN PRN Reason: CONSTIPATION Last Admin: 08/01/17 21:53 Dose: 1 tab Simethicone (Mylicon Tab*) 80 mg PO ACHS PRN PRN Reason: bloating Last Admin: 08/02/17 13:06 Dose: 80 mg Spironolactone (Aldactone Tab*) 50 mg PO DAILY [facility] Last Admin: 08/02/17 09:08 Dose: 50 mg Tamsulosin HCl (Flomax Cap*) 0.4 mg PO DAILY [facility] Last Admin: 08/02/17 09:07 Dose: 0.4 mg Vital Signs - 8 hr 08/02/17 08/02/17 08/02/17 07:58 08:04 08:05 Temperature 98.5 F Pulse Rate 61 Respiratory 20 16 20 Rate Blood Pressure 132/39 (mmHg) O2 Sat by Pulse 99 Oximetry 08/02/17 08/02/17 08/02/17 08:21 12:19 13:48 Temperature 98.5 F 98.1 F Pulse Rate 62 73 Respiratory 20 18 12 Rate Blood Pressure 120/34 145/57 (mmHg) O2 Sat by Pulse 99 100 98 Oximetry Oxygen Devices in Use Now: Nasal Cannula Appearance: Morbidly obese male sitting up in bed, NAD Eyes: No Scleral Icterus Ears/Nose/Mouth/Throat: Mucous Membranes Moist Respiratory: Symmetrical Chest Expansion and Respiratory Effort, Clear to Auscultation - anteriorly Cardiovascular: NL Sounds; No Murmurs; No JVD, - - no significant LE edema, +++ R lateral chest wall, flank edema Extremities: No Clubbing, Cyanosis Skin: No Nodules or Sclerosis Neurological: Alert and Oriented x 3 Result Diagrams: 07/31/17 08:50 08/02/17 05:43 Additional Lab and Data: Laboratory Results - last 24 hr 07/29/17 07/29/17 07/30/17 17:17 21:45 06:05 Sodium 134 Potassium 4.3 Chloride 89 L Carbon Dioxide 43 H* Anion Gap 2 BUN 47 H Creatinine 1.31 H Est GFR ( Amer) 73.9 Est GFR (Non-Af Amer) 57.5 BUN/Creatinine Ratio 35.9 H Glucose 144 H POC Glucose (mg/dL) 175 H 188 H Calcium 9.2 Magnesium 1.8 L 07/30/17 07:47 Sodium Potassium Chloride Carbon Dioxide Anion Gap BUN Creatinine Est GFR ( Amer) Est GFR (Non-Af Amer) BUN/Creatinine Ratio Glucose POC Glucose (mg/dL) 162 H Calcium Magnesium Microbiology and Other Data: Microbiology 07/26/17 12:15 Tissue - Other Wound Gram Stain - Final 07/26/17 12:15 Tissue - Other Tissue Culture - Final No Growth Day 4 07/26/17 12:15 Tissue - Other Acid Fast Bacilli Smear - Final 07/24/17 16:08 Urine Urine Culture - Final No Growth (<1,000 CFU/mL) 07/24/17 17:43 Nasal Nasal Screen MRSA (PCR)(JEAN CARLOS) - Final Mrsa Not Detected Assess/Plan/Problems-Billing 51 yo male PMH OHS, chronic hypoxic respiratory failure 2/2 OHS (on 5L, cpap at night), diastolic CHF, IDDM, Afib, Osteomyelitis s/p right 2nd toe amputation , recent MRSA bacteremia and left foot infection on 6 weeks IV vancomycin p/w chest pressure, weight gain, rapidly enlarging right chest swelling near a previously known [id number] lipoma w/ some erythema. - Patient Problems (1) Mass of right chest wall Current Visit: Yes Status: Acute Code(s): R22.2 - LOCALIZED SWELLING, MASS AND LUMP, TRUNK SNOMED Code(s): 944722893 Comment: Cytology shows minute fragment of benign fibrous tissue. Likely very large lipoma that is edematous. (2) Acute on chronic diastolic (congestive) heart failure Current Visit: Yes Status: Acute Priority: High Code(s): I50.33 - ACUTE ON CHRONIC DIASTOLIC (CONGESTIVE) HEART FAILURE SNOMED Code(s): 129710089 Comment: He continues to have good diuresis with lasix 60mg IV BID. Will give another dose of diamox today as he has developed a contraction alkalosis. Continue spironolactone. His renal function is holding steady. Will continue to diurese. (3) Anemia Current Visit: Yes Status: Acute Priority: High Onset Date: 06/10/14 Code(s): D64.9 - ANEMIA, UNSPECIFIED SNOMED Code(s): 859577943 Comment: The patient is iron deficient-started on ferrous gluconate this admission. Check H/H tomorrow. (4) Atrial fibrillation Current Visit: Yes Status: Acute Code(s): I48.91 - UNSPECIFIED ATRIAL FIBRILLATION SNOMED Code(s): 35775849 Comment: HR is improved on TID metoprolol. Continue xarelto. (5) Diabetes mellitus Current Visit: Yes Status: Acute Code(s): E11.9 - TYPE 2 DIABETES MELLITUS WITHOUT COMPLICATIONS SNOMED Code(s): 20121576 Comment: Sugars are still elevated. Increase lantus to 25 units SQ qHS. Continue lispro at current dose. (6) CKD (chronic kidney disease) stage 3, GFR 30-59 ml/min Current Visit: Yes Status: Chronic Code(s): N18.3 - CHRONIC KIDNEY DISEASE, STAGE 3 (MODERATE) SNOMED Code(s): 113853762 Comment: Creatinine is relatively stable despite very aggressive diuresis. Continue to follow while on IV lasix. (7) Hypertension Current Visit: Yes Status: Chronic Priority: Medium Code(s): I10 - ESSENTIAL (PRIMARY) HYPERTENSION SNOMED Code(s): 26051467 Comment: BP is under good control on metoprolol and spironolactone. Continue to monitor with increased metoprolol dose. (8) Pulmonary embolism Current Visit: Yes Status: Acute Code(s): I26.99 - OTHER PULMONARY EMBOLISM WITHOUT ACUTE COR PULMONALE SNOMED Code(s): 55958007 Comment: Pt has h/o DVT/PE. Continue xarelto. (9) Morbid obesity Current Visit: Yes Status: Acute Code(s): E66.01 - MORBID (SEVERE) OBESITY DUE TO EXCESS CALORIES SNOMED Code(s): 841477203 Comment: Diagnosis noted. (10) DVT prophylaxis Current Visit: Yes Status: Acute Priority: Medium Onset Date: 06/10/14 Code(s): GQD2320 - SNOMED Code(s): 349196620 Comment: Xarelto (11) Full code status Current Visit: Yes Status: Acute Onset Date: 06/10/14 Code(s): Z78.9 - OTHER SPECIFIED HEALTH STATUS SNOMED Code(s): 488935957 Status and Disposition: .
[2017-08-02] MEDS ORDERED: acetaZOLAMIDE VIAL* 500 MG in NS 0.9% 50 ML* 50 ML IVPB ONE (15:00)
[2017-08-02] MEDS: Insulin GLARGINE(*) 1 UNITS UNIT SUBCUT SCH (21:27)
[2017-08-03] MEDS: Albuterol 2.5 MG/3 ML NEB.SOL* (0.083%) INH PRN ×2 (06:06→19:34)
[2017-08-03] MEDS: Simethicone TAB* 80 MG TAB.CHEW PO PRN ×3 (06:13→19:22)
[2017-08-03] MEDS: oxyCODONE TAB* 5 MG TAB PO PRN ×3 (06:13→19:22)
[2017-08-03] MEDS: Levothyroxine TAB* 100 MCG TAB PO SCH (06:14)
[2017-08-03 06:45] LABS: Hematocrit 30 % (42-52); Hemoglobin 9.1 g/dl (14.0-18.0); Mean Corpuscular HGB Conc 31 g/dl (31-36); Mean Corpuscular Hemoglobin 26 pg (27-31); Mean Corpuscular Volume 86 fL (80-94); Mean Platelet Volume 7.8 um3 (7.4-10.4); Platelet Count 313 10^3/ul (150-450); Red Blood Count 3.46 10^6/ul (4.0-5.4); Red Cell Distribution Width 18 % (10.5-15)
[2017-08-03] MEDS: Mometasone/Formoter 200/5 MDI INH SCH ×2 (07:40→19:35)
[2017-08-03] MEDS: Polyethylene Glycol 3350* 17 GM PACKET PO SCH ×2 (09:15→20:34)
[2017-08-03] MEDS: Insulin LISPRO* 1 UNITS UNIT SUBCUT SCH ×3 (09:15→18:19)
[2017-08-03] MEDS: Furosemide IV* 10 MG/ML 10 ML VIAL (100 MG) IV SCH ×2 (09:15→17:24)
[2017-08-03] MEDS: Cholecalciferol TAB* 1000 UNITS PO SCH (09:17)
[2017-08-03] MEDS: Ferrous Gluconate TAB* 324 MG TAB PO SCH (09:18)
[2017-08-03] MEDS: Rivaroxaban TAB(*) 20 MG TAB PO SCH (09:18)
[2017-08-03] MEDS: Atorvastatin* 40 MG TAB PO SCH (09:18)
[2017-08-03] MEDS: Spironolactone TAB* 25 MG PO SCH (09:18)
[2017-08-03] MEDS: Metoprolol Tartrate TAB* 25 MG PO SCH ×3 (09:18→20:34)
[2017-08-03] MEDS: Tamsulosin CAP* 0.4 MG PO SCH (09:18)
[2017-08-03] MEDS: Allopurinol TAB* 300 MG PO SCH (09:18)
[2017-08-03] MEDS: Moisturizing CREAM* 120 GM JAR TOPICAL SCH ×3 (09:24→19:23)
[2017-08-03] MEDS: Nystatin CREAM* 15 GM TUBE TOPICAL SCH ×2 (09:32→19:30)
--- NOTE | 2017-08-03 10:11 | PN ---
Subjective Date of Service: 08/03/17 Interval History: Pt is feeling ok. He states he still has diffuse abdominal discomfort. He had a BM yesterday. He notes that his R flank is slightly softer as is the R lateral chest wall mass. Objective Active Medications: Acetaminophen (Tylenol Tab*) 325 mg PO Q6H PRN PRN Reason: PAIN Last Admin: 07/31/17 06:01 Dose: 325 mg Albuterol (Ventolin 2.5 Mg/3 Ml Neb.Christy*) 2.5 mg INH Q4H PRN PRN Reason: SOB/WHEEZING Last Admin: 08/03/17 06:06 Dose: 2.5 mg Allopurinol (Zyloprim Tab*) 300 mg PO DAILY [facility] Last Admin: 08/03/17 09:18 Dose: 300 mg Atorvastatin Calcium (Lipitor*) 40 mg PO DAILY [facility] Last Admin: 08/03/17 09:18 Dose: 40 mg Cholecalciferol (Vitamin D Tab*) 1,000 units PO DAILY [facility] Last Admin: 08/03/17 09:17 Dose: 1,000 units Dextrose (D50w Syringe 50 Ml*) 12.5 gm IV PUSH .FOR FS < 60 - SS PRN PRN Reason: FS < 60 Docusate Sodium (Colace Cap*) 100 mg PO BID PRN PRN Reason: CONSTIPATION Last Admin: 08/01/17 21:52 Dose: 100 mg Ferrous Gluconate (Fergon Tab*) 324 mg PO DAILY [facility] Last Admin: 08/03/17 09:18 Dose: 324 mg Fluticasone Propionate (Flonase Nasal [place] 50mcg*) 2 spray BOTH NARES DAILY PRN PRN Reason: Allergy Symptoms Last Admin: 07/30/17 08:46 Dose: 2 spray Furosemide (Lasix Iv*) 60 mg IV 0800,1700 [facility] Last Admin: 08/03/17 09:15 Dose: 60 mg Guaifenesin (Mucinex*) 600 mg PO Q12H PRN PRN Reason: congestion Heparin Sodium (Porcine) (Heparin Flush Picc/Ml/Cvc(*)) 1 - 3 ml FLUSH 0600, 1800 [facility] PRN Reason: Protocol Last Admin: 08/03/17 06:02 Dose: 1 ml Vancomycin HCl 750 mg/ Sodium (Chloride) 250 mls @ 166.667 mls/hr IVPB Q24H [facility] Last Admin: 08/02/17 14:31 Dose: 166.667 mls/hr Insulin Glargine (Lantus(*)) 25 units SUBCUT BEDTIME [facility] Insulin Human Lispro (Humalog*) 13 units SUBCUT TID [facility] Levothyroxine Sodium (Synthroid Tab*) 200 mcg PO DAILY@0600 [facility] Last Admin: 08/03/17 06:14 Dose: 200 mcg Metoprolol Tartrate (Lopressor Tab*) 25 mg PO TID [facility] Last Admin: 08/03/17 09:18 Dose: 25 mg Mometasone Furoate/Formoterol Fumar (Dulera 200/5 Mdi*) 2 puff INH BID [facility] PRN Reason: Protocol Last Admin: 08/03/17 07:40 Dose: 2 puff Multi-Ingredient Ointment (Hydrocerin*) 1 applic TOPICAL TID [facility] Last Admin: 08/03/17 09:24 Dose: 1 applic Nystatin (Nystatin Cream*) 1 applic TOPICAL BID [facility] Last Admin: 08/03/17 09:32 Dose: Not Given Oxycodone HCl (Roxycodone Tab*) 5 mg PO Q4H PRN PRN Reason: PAIN - SEVERE Last Admin: 08/03/17 06:13 Dose: 5 mg Pharmacy Consult (Vancomycin Per Pharmacy*) 1 note FOLLOW UP .VANC PER PHARMACY [facility] Pharmacy Profile Note (Vancomycin Trough Check) 1 note FOLLOW UP 1400 ONE Stop: 08/04/17 14:01 Phenyleph/Shark Oil/Min Oil/Petrol (Preparation H*) 1 applic RI Q8H PRN PRN Reason: PAIN Polyethylene Glycol/Electrolytes (Miralax*) 17 gm PO BID [facility] Last Admin: 08/03/17 09:15 Dose: 17 gm Rivaroxaban (Xarelto(*)) 20 mg PO DAILY [facility] Last Admin: 08/03/17 09:18 Dose: 20 mg Senna (Senokot Tab*) 1 tab PO BEDTIME PRN PRN Reason: CONSTIPATION Last Admin: 08/01/17 21:53 Dose: 1 tab Simethicone (Mylicon Tab*) 80 mg PO ACHS PRN PRN Reason: bloating Last Admin: 08/03/17 06:13 Dose: 80 mg Spironolactone (Aldactone Tab*) 50 mg PO DAILY [facility] Last Admin: 08/03/17 09:18 Dose: 50 mg Tamsulosin HCl (Flomax Cap*) 0.4 mg PO DAILY [facility] Last Admin: 08/03/17 09:18 Dose: 0.4 mg Vital Signs - 8 hr 08/03/17 08/03/17 08/03/17 03:25 06:05 06:13 Temperature Pulse Rate 110 87 Respiratory 18 18 19 Rate Blood Pressure 125/54 (mmHg) O2 Sat by Pulse 98 98 Oximetry 08/03/17 08/03/17 08/03/17 07:23 08:00 09:24 Temperature 98.8 F Pulse Rate 66 Respiratory 18 20 18 Rate Blood Pressure 125/34 (mmHg) O2 Sat by Pulse 98 Oximetry Oxygen Devices in Use Now: Nasal Cannula Appearance: Morbidly obese male sitting up in bed, NAD Eyes: No Scleral Icterus Ears/Nose/Mouth/Throat: Mucous Membranes Moist Respiratory: Symmetrical Chest Expansion and Respiratory Effort, Clear to Auscultation - anteriorly Cardiovascular: NL Sounds; No Murmurs; No JVD, RRR, - - no significant edema of the legs but contiued edema to R chest wall mass, R flank and lower abdominal wall Abdominal: NL Sounds; No Tenderness; No Distention Extremities: No Clubbing, Cyanosis Skin: No Rash or Ulcers, No Nodules or Sclerosis Neurological: Alert and Oriented x 3 Result Diagrams: 08/03/17 06:12 08/03/17 06:12 Additional Lab and Data: Laboratory Results - last 24 hr 07/29/17 07/29/17 07/30/17 17:17 21:45 06:05 Sodium 134 Potassium 4.3 Chloride 89 L Carbon Dioxide 43 H* Anion Gap 2 BUN 47 H Creatinine 1.31 H Est GFR ( Amer) 73.9 Est GFR (Non-Af Amer) 57.5 BUN/Creatinine Ratio 35.9 H Glucose 144 H POC Glucose (mg/dL) 175 H 188 H Calcium 9.2 Magnesium 1.8 L 07/30/17 07:47 Sodium Potassium Chloride Carbon Dioxide Anion Gap BUN Creatinine Est GFR ( Amer) Est GFR (Non-Af Amer) BUN/Creatinine Ratio Glucose POC Glucose (mg/dL) 162 H Calcium Magnesium Microbiology and Other Data: Microbiology 07/26/17 12:15 Tissue - Other Wound Gram Stain - Final 07/26/17 12:15 Tissue - Other Tissue Culture - Final No Growth Day 4 07/26/17 12:15 Tissue - Other Acid Fast Bacilli Smear - Final 07/24/17 16:08 Urine Urine Culture - Final No Growth (<1,000 CFU/mL) 07/24/17 17:43 Nasal Nasal Screen MRSA (PCR)(JEAN CARLOS) - Final Mrsa Not Detected Assess/Plan/Problems-Billing 51 yo male PMH OHS, chronic hypoxic respiratory failure 2/2 OHS (on 5L, cpap at night), diastolic CHF, IDDM, Afib, Osteomyelitis s/p right 2nd toe amputation , recent MRSA bacteremia and left foot infection on 6 weeks IV vancomycin p/w chest pressure, weight gain, rapidly enlarging right chest swelling near a previously known [id number] lipoma w/ some erythema. - Patient Problems (1) Acute on chronic diastolic (congestive) heart failure Current Visit: Yes Status: Acute Priority: High Code(s): I50.33 - ACUTE ON CHRONIC DIASTOLIC (CONGESTIVE) HEART FAILURE SNOMED Code(s): 388899972 Comment: He continues to have good diuresis with lasix 60mg IV BID. He is negative ~40L of fluid this admission. Continue spironolactone and give diamox 500mg IV x1 now. Creatinine is stable. Continue to follow very closely. (2) Mass of right chest wall Current Visit: Yes Status: Acute Code(s): R22.2 - LOCALIZED SWELLING, MASS AND LUMP, TRUNK SNOMED Code(s): 241533953 Comment: Cytology shows minute fragment of benign fibrous tissue. Likely very large lipoma that is edematous. (3) Anemia Current Visit: Yes Status: Acute Priority: High Onset Date: 06/10/14 Code(s): D64.9 - ANEMIA, UNSPECIFIED SNOMED Code(s): 225132981 Comment: H/H is stable. Stool guaiac not sent despite him having BM yesterday. Will reinforce the need for this. (4) Foot osteomyelitis, left Current Visit: Yes Status: Acute Code(s): M86.9 - OSTEOMYELITIS, UNSPECIFIED SNOMED Code(s): 0772081646643722 Comment: Continue vancomycin-today is D#39/56. (5) Atrial fibrillation Current Visit: Yes Status: Acute Code(s): I48.91 - UNSPECIFIED ATRIAL FIBRILLATION SNOMED Code(s): 59558219 Comment: HR remains in good range. Continue metoprolol 25mg TID and xarelto. (6) Diabetes mellitus Current Visit: Yes Status: Acute Code(s): E11.9 - TYPE 2 DIABETES MELLITUS WITHOUT COMPLICATIONS SNOMED Code(s): 03019539 Comment: Sugars are still elevated. Increase lantus to 25 units SQ qHS. Continue lispro but increase to 13 units with meals. (7) CKD (chronic kidney disease) stage 3, GFR 30-59 ml/min Current Visit: Yes Status: Chronic Code(s): N18.3 - CHRONIC KIDNEY DISEASE, STAGE 3 (MODERATE) SNOMED Code(s): 385333499 Comment: Creatinine is relatively stable despite very aggressive diuresis. Continue to follow while on IV lasix. (8) Hypertension Current Visit: Yes Status: Chronic Priority: Medium Code(s): I10 - ESSENTIAL (PRIMARY) HYPERTENSION SNOMED Code(s): 51805012 Comment: BP is under good control. Continue metoprolol and spironolactone. (9) Pulmonary embolism Current Visit: Yes Status: Acute Code(s): I26.99 - OTHER PULMONARY EMBOLISM WITHOUT ACUTE COR PULMONALE SNOMED Code(s): 24485065 Comment: Pt has h/o DVT/PE. Continue xarelto. (10) Morbid obesity Current Visit: Yes Status: Acute Code(s): E66.01 - MORBID (SEVERE) OBESITY DUE TO EXCESS CALORIES SNOMED Code(s): 753452660 Comment: Diagnosis noted. (11) DVT prophylaxis Current Visit: Yes Status: Acute Onset Date: 06/10/14 Code(s): BOS1178 - SNOMED Code(s): 277406468 Comment: Xarelto (12) Full code status Current Visit: Yes Status: Acute Onset Date: 06/10/14 Code(s): Z78.9 - OTHER SPECIFIED HEALTH STATUS SNOMED Code(s): 110318551 Status and Disposition: .
[2017-08-03] MEDS ORDERED: acetaZOLAMIDE VIAL* 500 MG in NS 0.9% 50 ML* 50 ML IVPB ONE (10:30)
[2017-08-03] MEDS ORDERED: acetaZOLAMIDE VIAL* 500 MG VIAL IV PUSH ONE (11:00)
[2017-08-03] MEDS: Vancomycin(*) 750 MG in NS 0.9% 250 ML* 250 ML IVPB SCH (15:23)
[2017-08-03] MEDS: Insulin GLARGINE(*) 1 UNITS UNIT SUBCUT SCH (20:43)
[2017-08-04] MEDS: Levothyroxine TAB* 100 MCG TAB PO SCH (05:49)
[2017-08-04] MEDS: oxyCODONE TAB* 5 MG TAB PO PRN ×3 (05:49→20:51)
[2017-08-04] MEDS: Simethicone TAB* 80 MG TAB.CHEW PO PRN ×3 (05:50→20:52)
[2017-08-04] MEDS: Albuterol 2.5 MG/3 ML NEB.SOL* (0.083%) INH PRN ×3 (06:12→19:57)
[2017-08-04 06:28] LABS: EGFR Non-African American 54.6 (>60)
[2017-08-04] MEDS: Mometasone/Formoter 200/5 MDI INH SCH ×2 (07:59→19:57)
[2017-08-04] MEDS: Polyethylene Glycol 3350* 17 GM PACKET PO SCH ×2 (09:13→20:52)
[2017-08-04] MEDS: Rivaroxaban TAB(*) 20 MG TAB PO SCH (09:13)
[2017-08-04] MEDS: Ferrous Gluconate TAB* 324 MG TAB PO SCH (09:13)
[2017-08-04] MEDS: Furosemide IV* 10 MG/ML 10 ML VIAL (100 MG) IV SCH (09:13)
[2017-08-04] MEDS: Atorvastatin* 40 MG TAB PO SCH (09:13)
[2017-08-04] MEDS: Allopurinol TAB* 300 MG PO SCH (09:13)
[2017-08-04] MEDS: Tamsulosin CAP* 0.4 MG PO SCH (09:14)
[2017-08-04] MEDS: Cholecalciferol TAB* 1000 UNITS PO SCH (09:14)
[2017-08-04] MEDS: Metoprolol Tartrate TAB* 25 MG PO SCH ×3 (09:14→20:51)
[2017-08-04] MEDS: Spironolactone TAB* 25 MG PO SCH (09:14)
[2017-08-04] MEDS: Insulin LISPRO* 1 UNITS UNIT SUBCUT SCH ×3 (09:14→17:51)
[2017-08-04] MEDS: Nystatin CREAM* 15 GM TUBE TOPICAL SCH ×2 (09:15→20:59)
[2017-08-04] MEDS: Moisturizing CREAM* 120 GM JAR TOPICAL SCH ×3 (09:15→20:56)
--- NOTE | 2017-08-04 13:36 | PN ---
Subjective Date of Service: 08/04/17 Interval History: Generalized abdominal pain. Not affected by food. No N/V Eating when I showed up No LH Feels right chest wall mass is decreased significantly in size. Objective Active Medications: Acetaminophen (Tylenol Tab*) 325 mg PO Q6H PRN PRN Reason: PAIN Last Admin: 07/31/17 06:01 Dose: 325 mg Albuterol (Ventolin 2.5 Mg/3 Ml Neb.Christy*) 2.5 mg INH Q4H PRN PRN Reason: SOB/WHEEZING Last Admin: 08/04/17 11:49 Dose: 2.5 mg Allopurinol (Zyloprim Tab*) 300 mg PO DAILY [facility] Last Admin: 08/04/17 09:13 Dose: 300 mg Atorvastatin Calcium (Lipitor*) 40 mg PO DAILY [facility] Last Admin: 08/04/17 09:13 Dose: 40 mg Cholecalciferol (Vitamin D Tab*) 1,000 units PO DAILY [facility] Last Admin: 08/04/17 09:14 Dose: 1,000 units Dextrose (D50w Syringe 50 Ml*) 12.5 gm IV PUSH .FOR FS < 60 - SS PRN PRN Reason: FS < 60 Docusate Sodium (Colace Cap*) 100 mg PO BID PRN PRN Reason: CONSTIPATION Last Admin: 08/01/17 21:52 Dose: 100 mg Ferrous Gluconate (Fergon Tab*) 324 mg PO DAILY [facility] Last Admin: 08/04/17 09:13 Dose: 324 mg Fluticasone Propionate (Flonase Nasal [place] 50mcg*) 2 spray BOTH NARES DAILY PRN PRN Reason: Allergy Symptoms Last Admin: 07/30/17 08:46 Dose: 2 spray Furosemide (Lasix Tab*) 40 mg PO 0800,1700 [facility] Guaifenesin (Mucinex*) 600 mg PO Q12H PRN PRN Reason: congestion Heparin Sodium (Porcine) (Heparin Flush Picc/Ml/Cvc(*)) 1 - 3 ml FLUSH 0600, 1800 [facility] PRN Reason: Protocol Last Admin: 08/04/17 13:11 Dose: 1 ml Vancomycin HCl 750 mg/ Sodium (Chloride) 250 mls @ 166.667 mls/hr IVPB Q24H [facility] Last Admin: 08/03/17 15:23 Dose: 166.667 mls/hr Insulin Glargine (Lantus(*)) 25 units SUBCUT BEDTIME [facility] Last Admin: 08/03/17 20:43 Dose: 25 units Insulin Human Lispro (Humalog*) 13 units SUBCUT TID [facility] Last Admin: 08/04/17 13:05 Dose: 13 units Levothyroxine Sodium (Synthroid Tab*) 200 mcg PO DAILY@0600 [facility] Last Admin: 08/04/17 05:49 Dose: 200 mcg Metoprolol Tartrate (Lopressor Tab*) 25 mg PO TID [facility] Last Admin: 08/04/17 13:06 Dose: 25 mg Mometasone Furoate/Formoterol Fumar (Dulera 200/5 Mdi*) 2 puff INH BID [facility] PRN Reason: Protocol Last Admin: 08/04/17 07:59 Dose: 2 puff Multi-Ingredient Ointment (Hydrocerin*) 1 applic TOPICAL TID [facility] Last Admin: 08/04/17 13:06 Dose: 1 applic Nystatin (Nystatin Cream*) 1 applic TOPICAL BID [facility] Last Admin: 08/04/17 09:15 Dose: Not Given Oxycodone HCl (Roxycodone Tab*) 5 mg PO Q4H PRN PRN Reason: PAIN - SEVERE Last Admin: 08/04/17 05:49 Dose: 5 mg Pharmacy Consult (Vancomycin Per Pharmacy*) 1 note FOLLOW UP .VANC PER PHARMACY [facility] Pharmacy Profile Note (Vancomycin Trough Check) 1 note FOLLOW UP 1400 ONE Stop: 08/04/17 14:01 Phenyleph/Shark Oil/Min Oil/Petrol (Preparation H*) 1 applic [place] Q8H PRN PRN Reason: PAIN Polyethylene Glycol/Electrolytes (Miralax*) 17 gm PO BID [facility] Last Admin: 08/04/17 09:13 Dose: 17 gm Rivaroxaban (Xarelto(*)) 20 mg PO DAILY [facility] Last Admin: 08/04/17 09:13 Dose: 20 mg Senna (Senokot Tab*) 1 tab PO BEDTIME PRN PRN Reason: CONSTIPATION Last Admin: 08/01/17 21:53 Dose: 1 tab Simethicone (Mylicon Tab*) 80 mg PO ACHS PRN PRN Reason: bloating Last Admin: 08/04/17 05:50 Dose: 80 mg Spironolactone (Aldactone Tab*) 50 mg PO DAILY [facility] Last Admin: 08/04/17 09:14 Dose: 50 mg Tamsulosin HCl (Flomax Cap*) 0.4 mg PO DAILY [facility] Last Admin: 08/04/17 09:14 Dose: 0.4 mg Vital Signs - 8 hr 08/04/17 08/04/17 08/04/17 05:49 06:12 06:24 Temperature 97.7 F Pulse Rate 70 63 Respiratory 18 18 18 Rate Blood Pressure 135/45 (mmHg) O2 Sat by Pulse 98 100 Oximetry 08/04/17 08/04/17 08/04/17 07:39 08:35 09:40 Temperature Pulse Rate 80 Respiratory 20 20 Rate Blood Pressure (mmHg) O2 Sat by Pulse Oximetry Oxygen Devices in Use Now: Nasal Cannula Appearance: obese, interactive, NAD Eyes: No Scleral Icterus, PERRLA Ears/Nose/Mouth/Throat: Clear Oropharnyx, Mucous Membranes Moist Neck: NL Appearance and Movements; NL JVP, Trachea Midline Respiratory: Symmetrical Chest Expansion and Respiratory Effort, Clear to Auscultation Cardiovascular: RRR Abdominal: NL Sounds; No Tenderness; No Distention, No Hepatosplenomegaly, - - large umbilical hernia Extremities: - - 1+ LE edema, very large right chest wall edema (just lateral to right areola) much larger than the size of a basketball Neurological: Alert and Oriented x 3 Result Diagrams: 08/03/17 06:12 08/04/17 06:00 Additional Lab and Data: Laboratory Results - last 24 hr 07/29/17 07/29/17 07/30/17 17:17 21:45 06:05 Sodium 134 Potassium 4.3 Chloride 89 L Carbon Dioxide 43 H* Anion Gap 2 BUN 47 H Creatinine 1.31 H Est GFR ( Amer) 73.9 Est GFR (Non-Af Amer) 57.5 BUN/Creatinine Ratio 35.9 H Glucose 144 H POC Glucose (mg/dL) 175 H 188 H Calcium 9.2 Magnesium 1.8 L 07/30/17 07:47 Sodium Potassium Chloride Carbon Dioxide Anion Gap BUN Creatinine Est GFR ( Amer) Est GFR (Non-Af Amer) BUN/Creatinine Ratio Glucose POC Glucose (mg/dL) 162 H Calcium Magnesium Microbiology and Other Data: Microbiology 07/26/17 12:15 Tissue - Other Wound Gram Stain - Final 07/26/17 12:15 Tissue - Other Tissue Culture - Final No Growth Day 4 07/26/17 12:15 Tissue - Other Acid Fast Bacilli Smear - Final 07/24/17 16:08 Urine Urine Culture - Final No Growth (<1,000 CFU/mL) 07/24/17 17:43 Nasal Nasal Screen MRSA (PCR)(JEAN CARLOS) - Final Mrsa Not Detected Assess/Plan/Problems-Billing 51 yo male PMH OHS, chronic hypoxic respiratory failure 2/2 OHS (on 5L, cpap at night), diastolic CHF, IDDM, Afib, osteomyelitis s/p right 2nd toe amputation , recent MRSA bacteremia and left foot infection on 6 weeks IV vancomycin p/w chest pressure, weight gain, rapidly enlarging right chest swelling near a previously known [id number] lipoma w/ associated erythema. - Patient Problems (1) Mass of right chest wall Comment: With associated cellulitis s/p 6 days CTX (last day 07/30) and continued vanco (in setting of 6 weeks for osteomyelitis) Suspect localized massive lyphedema. Cocner for underlying infection or malignancy prompted biospy with cytology showing minute fragment of benign fibrous tissue without e/o malignancy or abscess Improved with diuresis but has proven difficult to apply compression given location (2) Acute kidney failure Comment: related to diuresis Creatinine 1.0 on 07/24 now 1.37 Decrease lasix from 60IV BID to 40IV BID trend (3) Acute on chronic diastolic (congestive) heart failure Comment: Lasix stopped at [facility] for several weeks prior to presentation Weight today on different scale and indicates large change from other scale Remains net negativ ~40L of fluid this admission. Continue spironolactone Decrease lasix as above (4) Atrial fibrillation Comment: Continue metoprolol 25mg TID and xarelto. (5) Diabetes mellitus Comment: Lantus increased 08/03 to 25 units SQ qHS. Lispro increased 08/03 to 13 units with meals. (6) Foot osteomyelitis, left Comment: Continue vancomycin-today is D#40/56. (7) Hypertension Comment: BP is under good control. Continue metoprolol and spironolactone. (8) Pulmonary embolism Comment: Pt has h/o DVT/PE. Continue xarelto. (9) DVT prophylaxis Comment: Xarelto Status and Disposition: .
[2017-08-04] MEDS ORDERED: Vancomycin Trough Check NOTE FOLLOW UP ONE (14:00)
[2017-08-04] MEDS: Vancomycin(*) 750 MG in NS 0.9% 250 ML* 250 ML IVPB SCH (14:26)
[2017-08-04] MEDS: Furosemide TAB* 40 MG PO SCH (17:46)
[2017-08-04] MEDS: Insulin GLARGINE(*) 1 UNITS UNIT SUBCUT SCH (20:55)
[2017-08-05] MEDS: Simethicone TAB* 80 MG TAB.CHEW PO PRN ×2 (05:21→20:58)
[2017-08-05] MEDS: oxyCODONE TAB* 5 MG TAB PO PRN ×2 (05:21→20:58)
[2017-08-05] MEDS: Levothyroxine TAB* 100 MCG TAB PO SCH (05:21)
[2017-08-05 05:53] LABS: EGFR Non-African American 57.5 (>60)
[2017-08-05] MEDS: Albuterol 2.5 MG/3 ML NEB.SOL* (0.083%) INH PRN ×2 (07:38→19:44)
[2017-08-05] MEDS: Mometasone/Formoter 200/5 MDI INH SCH ×2 (07:39→19:44)
[2017-08-05] MEDS: Polyethylene Glycol 3350* 17 GM PACKET PO SCH ×2 (08:55→20:55)
[2017-08-05] MEDS: Allopurinol TAB* 300 MG PO SCH (08:56)
[2017-08-05] MEDS: Furosemide TAB* 40 MG PO SCH (08:56)
[2017-08-05] MEDS: Ferrous Gluconate TAB* 324 MG TAB PO SCH (08:56)
[2017-08-05] MEDS: Rivaroxaban TAB(*) 20 MG TAB PO SCH (08:56)
[2017-08-05] MEDS: Metoprolol Tartrate TAB* 25 MG PO SCH ×3 (08:56→20:59)
[2017-08-05] MEDS: Cholecalciferol TAB* 1000 UNITS PO SCH (08:56)
[2017-08-05] MEDS: Tamsulosin CAP* 0.4 MG PO SCH (08:56)
[2017-08-05] MEDS: Atorvastatin* 40 MG TAB PO SCH (08:56)
[2017-08-05] MEDS: Nystatin CREAM* 15 GM TUBE TOPICAL SCH ×2 (08:57→20:41)
[2017-08-05] MEDS: Insulin LISPRO* 1 UNITS UNIT SUBCUT SCH ×3 (08:58→17:22)
[2017-08-05] MEDS: Moisturizing CREAM* 120 GM JAR TOPICAL SCH ×3 (08:58→21:02)
[2017-08-05] MEDS: Spironolactone TAB* 25 MG PO SCH (09:00)
[2017-08-05] MEDS: Vancomycin(*) 750 MG in NS 0.9% 250 ML* 250 ML IVPB SCH (13:07)
--- NOTE | 2017-08-05 15:22 | PN ---
Subjective Date of Service: 08/05/17 Interval History: When asked reports generalize abdominal pain that is worse with eating. Nursing however notes that he has been ordering double orders of meals. No N/V nor diarrhea. Feels right check wall lymphedema is stable in size/ He tried to elevate it overnight under pillow while he slept overnight Objective Active Medications: Acetaminophen (Tylenol Tab*) 325 mg PO Q6H PRN PRN Reason: PAIN Last Admin: 07/31/17 06:01 Dose: 325 mg Albuterol (Ventolin 2.5 Mg/3 Ml Neb.Christy*) 2.5 mg INH Q4H PRN PRN Reason: SOB/WHEEZING Last Admin: 08/05/17 07:38 Dose: 2.5 mg Allopurinol (Zyloprim Tab*) 300 mg PO DAILY [facility] Last Admin: 08/05/17 08:56 Dose: 300 mg Atorvastatin Calcium (Lipitor*) 40 mg PO DAILY [facility] Last Admin: 08/05/17 08:56 Dose: 40 mg Cholecalciferol (Vitamin D Tab*) 1,000 units PO DAILY [facility] Last Admin: 08/05/17 08:56 Dose: 1,000 units Dextrose (D50w Syringe 50 Ml*) 12.5 gm IV PUSH .FOR FS < 60 - SS PRN PRN Reason: FS < 60 Docusate Sodium (Colace Cap*) 100 mg PO BID PRN PRN Reason: CONSTIPATION Last Admin: 08/01/17 21:52 Dose: 100 mg Ferrous Gluconate (Fergon Tab*) 324 mg PO DAILY [facility] Last Admin: 08/05/17 08:56 Dose: 324 mg Fluticasone Propionate (Flonase Nasal [place] 50mcg*) 2 spray BOTH NARES DAILY PRN PRN Reason: Allergy Symptoms Last Admin: 07/30/17 08:46 Dose: 2 spray Guaifenesin (Mucinex*) 600 mg PO Q12H PRN PRN Reason: congestion Heparin Sodium (Porcine) (Heparin Flush Picc/Ml/Cvc(*)) 1 - 3 ml FLUSH 0600, 1800 [facility] PRN Reason: Protocol Last Admin: 08/05/17 14:55 Dose: 1 ml Vancomycin HCl 750 mg/ Sodium (Chloride) 250 mls @ 166.667 mls/hr IVPB Q24H [facility] Last Admin: 08/05/17 13:07 Dose: 166.667 mls/hr Insulin Glargine (Lantus(*)) 25 units SUBCUT BEDTIME [facility] Last Admin: 08/04/17 20:55 Dose: 25 units Insulin Human Lispro (Humalog*) 13 units SUBCUT TID [facility] Last Admin: 08/05/17 13:07 Dose: 13 units Levothyroxine Sodium (Synthroid Tab*) 200 mcg PO DAILY@0600 [facility] Last Admin: 08/05/17 05:21 Dose: 200 mcg Metoprolol Tartrate (Lopressor Tab*) 25 mg PO TID [facility] Last Admin: 08/05/17 13:07 Dose: 25 mg Mometasone Furoate/Formoterol Fumar (Dulera 200/5 Mdi*) 2 puff INH BID [facility] PRN Reason: Protocol Last Admin: 08/05/17 07:39 Dose: 2 puff Multi-Ingredient Ointment (Hydrocerin*) 1 applic TOPICAL TID [facility] Last Admin: 08/05/17 13:08 Dose: 1 applic Nystatin (Nystatin Cream*) 1 applic TOPICAL BID [facility] Last Admin: 08/05/17 08:57 Dose: Not Given Oxycodone HCl (Roxycodone Tab*) 5 mg PO Q4H PRN PRN Reason: PAIN - SEVERE Last Admin: 08/05/17 05:21 Dose: 5 mg Pharmacy Consult (Vancomycin Per Pharmacy*) 1 note FOLLOW UP .VANC PER PHARMACY [facility] Phenyleph/Shark Oil/Min Oil/Petrol (Preparation H*) 1 applic [place] Q8H PRN PRN Reason: PAIN Polyethylene Glycol/Electrolytes (Miralax*) 17 gm PO BID [facility] Last Admin: 08/05/17 08:55 Dose: 17 gm Rivaroxaban (Xarelto(*)) 20 mg PO DAILY [facility] Last Admin: 08/05/17 08:56 Dose: 20 mg Senna (Senokot Tab*) 1 tab PO BEDTIME PRN PRN Reason: CONSTIPATION Last Admin: 08/01/17 21:53 Dose: 1 tab Simethicone (Mylicon Tab*) 80 mg PO ACHS PRN PRN Reason: bloating Last Admin: 08/05/17 05:21 Dose: 80 mg Spironolactone (Aldactone Tab*) 50 mg PO DAILY [facility] Last Admin: 08/05/17 09:00 Dose: 50 mg Tamsulosin HCl (Flomax Cap*) 0.4 mg PO DAILY [facility] Last Admin: 08/05/17 08:56 Dose: 0.4 mg Torsemide (Demadex*) 20 mg PO DAILY [facility] Vital Signs - 8 hr 08/05/17 08/05/17 08/05/17 07:21 07:30 07:32 Temperature 98.1 F Pulse Rate 64 Respiratory 16 20 20 Rate Blood Pressure 134/49 (mmHg) O2 Sat by Pulse 100 Oximetry 08/05/17 08/05/17 07:42 11:24 Temperature 98.4 F Pulse Rate 70 66 Respiratory 16 18 Rate Blood Pressure 136/43 (mmHg) O2 Sat by Pulse 98 98 Oximetry Oxygen Devices in Use Now: Nasal Cannula Appearance: NAD Eyes: No Scleral Icterus, PERRLA Ears/Nose/Mouth/Throat: Clear Oropharnyx, Mucous Membranes Moist Neck: NL Appearance and Movements; NL JVP, Trachea Midline Respiratory: Symmetrical Chest Expansion and Respiratory Effort, Clear to Auscultation Cardiovascular: RRR Abdominal: NL Sounds; No Tenderness; No Distention, No Hepatosplenomegaly Extremities: - - no to trace LE edema Skin: - - right chest wall localized large area of lymphedema lateral to right areola with areas of overlying pitting edema and mild erythema Neurological: Alert and Oriented x 3 Result Diagrams: 08/03/17 06:12 08/05/17 05:24 Additional Lab and Data: Laboratory Results - last 24 hr 07/29/17 07/29/17 07/30/17 17:17 21:45 06:05 Sodium 134 Potassium 4.3 Chloride 89 L Carbon Dioxide 43 H* Anion Gap 2 BUN 47 H Creatinine 1.31 H Est GFR ( Amer) 73.9 Est GFR (Non-Af Amer) 57.5 BUN/Creatinine Ratio 35.9 H Glucose 144 H POC Glucose (mg/dL) 175 H 188 H Calcium 9.2 Magnesium 1.8 L 07/30/17 07:47 Sodium Potassium Chloride Carbon Dioxide Anion Gap BUN Creatinine Est GFR ( Amer) Est GFR (Non-Af Amer) BUN/Creatinine Ratio Glucose POC Glucose (mg/dL) 162 H Calcium Magnesium Microbiology and Other Data: Microbiology 07/26/17 12:15 Tissue - Other Wound Gram Stain - Final 07/26/17 12:15 Tissue - Other Tissue Culture - Final No Growth Day 4 07/26/17 12:15 Tissue - Other Acid Fast Bacilli Smear - Final 07/24/17 16:08 Urine Urine Culture - Final No Growth (<1,000 CFU/mL) 07/24/17 17:43 Nasal Nasal Screen MRSA (PCR)(JEAN CARLOS) - Final Mrsa Not Detected Assess/Plan/Problems-Billing 51 yo male PMH OHS, chronic hypoxic respiratory failure 2/2 OHS (on 5L, cpap at night), diastolic CHF, IDDM, Afib, osteomyelitis s/p right 2nd toe amputation , recent MRSA bacteremia and left foot infection on 8 weeks IV vancomycin p/w chest pressure, weight gain, rapidly enlarging right chest swelling near a previously known [id number] lipoma w/ associated erythema. - Patient Problems (1) Mass of right chest wall Comment: With associated cellulitis s/p 6 days CTX (last day 07/30) and continued vanco (in setting of 8 weeks for osteomyelitis) Suspect localized massive lyphedema. Concer for underlying infection or malignancy prompted biospy with cytology showing minute fragment of benign fibrous tissue without e/o malignancy or abscess Improved with diuresis but has proven difficult to apply compression given location. Now mass is in arm sling to help with elevation. Needs lymphedema expert on discharge (2) Acute kidney failure Comment: related to diuresis Creatinine 1.0 on 07/24 peaked 1.37 Decrease lasix from 60IV BID to 40IV BID 08/04 decrease lasix back to home dose and monitor 08/05 (3) Acute on chronic diastolic (congestive) heart failure Comment: Lasix stopped at [facility] for several weeks prior to presentation Weight today on different scale and indicates large change from other scale Remains net negative ~40L of fluid this admission. Continue spironolactone Decrease lasix as above (4) Atrial fibrillation Comment: Continue metoprolol 25mg TID and xarelto. (5) Diabetes mellitus Comment: Lantus increased to 25 units on 08/03 Lantus increased to 28 units on 08/05 Lispro increased 08/03 to 13 units with meals. (6) Foot osteomyelitis, left Comment: Continue vancomycin-today is D#41/56. Patient indicated 4 weeks abx. Notes indicate 6 weeks abx. Unclear where 4 weeks changed to 6 wks then 56 days. I indicated this could be discussed with Dr. Fierro when he returns this week. (7) Hypertension Comment: BP is under good control. Continue metoprolol and spironolactone. (8) Pulmonary embolism Comment: Pt has h/o DVT/PE. Continue xarelto. (9) DVT prophylaxis Comment: Xarelto Status and Disposition: Plan discharge home in 24-48hrs when diuretic dose deemed stable.
[2017-08-05] MEDS ORDERED: Insulin GLARGINE(*) 1 UNITS UNIT SUBCUT SCH (21:00)
[2017-08-06] MEDS: Levothyroxine TAB* 100 MCG TAB PO SCH (06:13)
[2017-08-06] MEDS: oxyCODONE TAB* 5 MG TAB PO PRN (06:14)
[2017-08-06] MEDS: Albuterol 2.5 MG/3 ML NEB.SOL* (0.083%) INH PRN ×2 (06:15→19:53)
[2017-08-06 07:02] LABS: EGFR Non-African American 52.8 (>60)
[2017-08-06] MEDS: Mometasone/Formoter 200/5 MDI INH SCH ×2 (07:52→19:53)
[2017-08-06] MEDS: Insulin LISPRO* 1 UNITS UNIT SUBCUT SCH ×3 (08:53→17:17)
[2017-08-06] MEDS: Moisturizing CREAM* 120 GM JAR TOPICAL SCH ×3 (08:54→20:36)
[2017-08-06] MEDS: Ferrous Gluconate TAB* 324 MG TAB PO SCH (08:54)
[2017-08-06] MEDS: Allopurinol TAB* 300 MG PO SCH (08:54)
[2017-08-06] MEDS: Atorvastatin* 40 MG TAB PO SCH (08:54)
[2017-08-06] MEDS: Cholecalciferol TAB* 1000 UNITS PO SCH (08:54)
[2017-08-06] MEDS: Metoprolol Tartrate TAB* 25 MG PO SCH ×3 (08:54→20:36)
[2017-08-06] MEDS: Rivaroxaban TAB(*) 20 MG TAB PO SCH (08:55)
[2017-08-06] MEDS: Nystatin CREAM* 15 GM TUBE TOPICAL SCH ×2 (08:55→20:36)
[2017-08-06] MEDS: Spironolactone TAB* 25 MG PO SCH (08:55)
[2017-08-06] MEDS: Polyethylene Glycol 3350* 17 GM PACKET PO SCH ×2 (08:55→20:36)
[2017-08-06] MEDS: Tamsulosin CAP* 0.4 MG PO SCH (08:56)
[2017-08-06] MEDS ORDERED: Torsemide TAB* 20 MG PO SCH (09:00)
[2017-08-06] MEDS: Simethicone TAB* 80 MG TAB.CHEW PO PRN ×2 (10:54→20:36)
[2017-08-06] MEDS: Acetaminophen TAB* 325 MG PO PRN ×2 (10:54→20:35)
[2017-08-06] MEDS: Vancomycin(*) 750 MG in NS 0.9% 250 ML* 250 ML IVPB SCH (14:23)
[2017-08-06] MEDS ORDERED: Torsemide TAB* 20 MG PO ONE (16:22)
--- NOTE | 2017-08-06 16:31 | PN ---
Subjective Date of Service: 08/06/17 Interval History: No new c/o. He can't walk. Objective Active Medications: Acetaminophen (Tylenol Tab*) 325 mg PO Q6H PRN PRN Reason: PAIN Last Admin: 08/06/17 10:54 Dose: 325 mg Albuterol (Ventolin 2.5 Mg/3 Ml Neb.Christy*) 2.5 mg INH Q4H PRN PRN Reason: SOB/WHEEZING Last Admin: 08/06/17 06:15 Dose: 2.5 mg Allopurinol (Zyloprim Tab*) 300 mg PO DAILY [facility] Last Admin: 08/06/17 08:54 Dose: 300 mg Atorvastatin Calcium (Lipitor*) 40 mg PO DAILY [facility] Last Admin: 08/06/17 08:54 Dose: 40 mg Cholecalciferol (Vitamin D Tab*) 1,000 units PO DAILY [facility] Last Admin: 08/06/17 08:54 Dose: 1,000 units Dextrose (D50w Syringe 50 Ml*) 12.5 gm IV PUSH .FOR FS < 60 - SS PRN PRN Reason: FS < 60 Docusate Sodium (Colace Cap*) 100 mg PO BID PRN PRN Reason: CONSTIPATION Last Admin: 08/01/17 21:52 Dose: 100 mg Ferrous Gluconate (Fergon Tab*) 324 mg PO DAILY [facility] Last Admin: 08/06/17 08:54 Dose: 324 mg Fluticasone Propionate (Flonase Nasal [place] 50mcg*) 2 spray BOTH NARES DAILY PRN PRN Reason: Allergy Symptoms Last Admin: 07/30/17 08:46 Dose: 2 spray Guaifenesin (Mucinex*) 600 mg PO Q12H PRN PRN Reason: congestion Heparin Sodium (Porcine) (Heparin Flush Picc/Ml/Cvc(*)) 1 - 3 ml FLUSH 0600, 1800 [facility] PRN Reason: Protocol Last Admin: 08/06/17 15:58 Dose: 1 ml Vancomycin HCl 750 mg/ Sodium (Chloride) 250 mls @ 166.667 mls/hr IVPB Q24H [facility] Last Admin: 08/06/17 14:23 Dose: 166.667 mls/hr Insulin Glargine (Lantus(*)) 28 units SUBCUT BEDTIME [facility] Last Admin: 08/05/17 21:00 Dose: 28 units Insulin Human Lispro (Humalog*) 13 units SUBCUT TID AC [facility] Last Admin: 08/06/17 12:32 Dose: 13 units Levothyroxine Sodium (Synthroid Tab*) 200 mcg PO DAILY@0600 [facility] Last Admin: 08/06/17 06:13 Dose: 200 mcg Metoprolol Tartrate (Lopressor Tab*) 25 mg PO TID [facility] Last Admin: 08/06/17 14:23 Dose: 25 mg Mometasone Furoate/Formoterol Fumar (Dulera 200/5 Mdi*) 2 puff INH BID [facility] PRN Reason: Protocol Last Admin: 08/06/17 07:52 Dose: 2 puff Multi-Ingredient Ointment (Hydrocerin*) 1 applic TOPICAL TID [facility] Last Admin: 08/06/17 14:24 Dose: Not Given Nystatin (Nystatin Cream*) 1 applic TOPICAL BID [facility] Last Admin: 08/06/17 08:55 Dose: Not Given Oxycodone HCl (Roxycodone Tab*) 5 mg PO Q4H PRN PRN Reason: PAIN - SEVERE Last Admin: 08/06/17 06:14 Dose: 5 mg Pharmacy Consult (Vancomycin Per Pharmacy*) 1 note FOLLOW UP .VANC PER PHARMACY [facility] Phenyleph/Shark Oil/Min Oil/Petrol (Preparation H*) 1 applic [place] Q8H PRN PRN Reason: PAIN Polyethylene Glycol/Electrolytes (Miralax*) 17 gm PO BID [facility] Last Admin: 08/06/17 08:55 Dose: 17 gm Rivaroxaban (Xarelto(*)) 20 mg PO DAILY [facility] Last Admin: 08/06/17 08:55 Dose: 20 mg Senna (Senokot Tab*) 1 tab PO BEDTIME PRN PRN Reason: CONSTIPATION Last Admin: 08/01/17 21:53 Dose: 1 tab Simethicone (Mylicon Tab*) 80 mg PO ACHS PRN PRN Reason: bloating Last Admin: 08/06/17 10:54 Dose: 80 mg Spironolactone (Aldactone Tab*) 50 mg PO DAILY [facility] Last Admin: 08/06/17 08:55 Dose: 50 mg Tamsulosin HCl (Flomax Cap*) 0.4 mg PO DAILY [facility] Last Admin: 08/06/17 08:56 Dose: 0.4 mg Torsemide (Demadex*) 40 mg PO ONCE ONE Stop: 08/06/17 16:23 Torsemide (Demadex*) 60 mg PO DAILY [facility] Vital Signs - 8 hr 08/06/17 08/06/17 08:27 11:18 Temperature 98.1 F Pulse Rate 72 Respiratory 20 18 Rate Blood Pressure 147/47 (mmHg) O2 Sat by Pulse 98 Oximetry Oxygen Devices in Use Now: Nasal Cannula Appearance: Alert, partly up in bed. In good spirits. Looks comfortable. Eyes: No Scleral Icterus Cardiovascular: - - Massive lymphedema R chest wall and R abd with peau d' orange. Extremities: No Clubbing, Cyanosis, - - Hyperpigmentation and tr edema both lower legs Skin: No Nodules or Sclerosis Neurological: Alert and Oriented x 3, NL Sensation Result Diagrams: 08/03/17 06:12 08/06/17 14:36 Additional Lab and Data: Laboratory Results - last 24 hr 07/29/17 07/29/17 07/30/17 17:17 21:45 06:05 Sodium 134 Potassium 4.3 Chloride 89 L Carbon Dioxide 43 H* Anion Gap 2 BUN 47 H Creatinine 1.31 H Est GFR ( Amer) 73.9 Est GFR (Non-Af Amer) 57.5 BUN/Creatinine Ratio 35.9 H Glucose 144 H POC Glucose (mg/dL) 175 H 188 H Calcium 9.2 Magnesium 1.8 L 07/30/17 07:47 Sodium Potassium Chloride Carbon Dioxide Anion Gap BUN Creatinine Est GFR ( Amer) Est GFR (Non-Af Amer) BUN/Creatinine Ratio Glucose POC Glucose (mg/dL) 162 H Calcium Magnesium Microbiology and Other Data: Microbiology 07/26/17 12:15 Tissue - Other Wound Gram Stain - Final 07/26/17 12:15 Tissue - Other Tissue Culture - Final No Growth Day 4 07/26/17 12:15 Tissue - Other Acid Fast Bacilli Smear - Final 07/24/17 16:08 Urine Urine Culture - Final No Growth (<1,000 CFU/mL) 07/24/17 17:43 Nasal Nasal Screen MRSA (PCR)(JEAN CARLOS) - Final Mrsa Not Detected Assess/Plan/Problems-Billing 51 yo male PMH OHS, chronic hypoxic respiratory failure 2/2 OHS (on 5L, cpap at night), diastolic CHF, IDDM, Afib, osteomyelitis s/p right 2nd toe amputation , recent MRSA bacteremia and left foot infection on 8 weeks IV vancomycin p/w chest pressure, weight gain, rapidly enlarging right chest swelling near a previously known [id number] lipoma w/ associated erythema. - Patient Problems (1) Acute on chronic diastolic (congestive) heart failure Current Visit: Yes Status: Acute Priority: High Code(s): I50.33 - ACUTE ON CHRONIC DIASTOLIC (CONGESTIVE) HEART FAILURE SNOMED Code(s): 673428982 Comment: Lasix stopped at [facility] for several weeks prior to presentation Weight today on different scale and indicates large change from other scale Remains net negative ~40L of fluid this admission. Continue spironolactone, increase torsemide to 40 mg which he says is his "usual " dose. (2) Atrial fibrillation Current Visit: Yes Status: Acute Code(s): I48.91 - UNSPECIFIED ATRIAL FIBRILLATION SNOMED Code(s): 61693854 Comment: Continue metoprolol 25mg TID and xarelto. (3) Morbid obesity Current Visit: Yes Status: Acute Code(s): E66.01 - MORBID (SEVERE) OBESITY DUE TO EXCESS CALORIES SNOMED Code(s): 845820160 Comment: BMI 61.0. (4) Foot osteomyelitis, left Current Visit: Yes Status: Acute Code(s): M86.9 - OSTEOMYELITIS, UNSPECIFIED SNOMED Code(s): 7639272819501228 Comment: Continue vancomycin-today is D#41/56. Patient indicated 4 weeks abx. Notes indicate 6 weeks abx. Unclear where 4 weeks changed to 6 wks then 56 days. I indicated this could be discussed with Dr. Fierro when he returns this week. (5) Diabetes mellitus Current Visit: Yes Status: Acute Code(s): E11.9 - TYPE 2 DIABETES MELLITUS WITHOUT COMPLICATIONS SNOMED Code(s): 43314939 Comment: Lantus increased to 25 units on 08/03 Lantus increased to 28 units on 08/05; Lantus increased to 34 units on 08/06. Lispro increased 08/03 to 13 units with meals. (6) Hypothyroid Current Visit: No Status: Acute Code(s): E03.9 - HYPOTHYROIDISM, UNSPECIFIED SNOMED Code(s): 36675718 Comment: TSH 1.17 on 06/19. Status and Disposition: Plan discharge home in 24-48hrs when diuretic dose deemed stable.
[2017-08-06] MEDS ORDERED: Insulin GLARGINE(*) 1 UNITS UNIT SUBCUT SCH (21:00)
[2017-08-07] MEDS: Albuterol 2.5 MG/3 ML NEB.SOL* (0.083%) INH PRN ×2 (04:46→19:53)
[2017-08-07] MEDS: Levothyroxine TAB* 100 MCG TAB PO SCH (05:37)
[2017-08-07] MEDS: Acetaminophen TAB* 325 MG PO PRN ×2 (05:54→20:28)
[2017-08-07 06:16] LABS: EGFR Non-African American 54.6 (>60)
[2017-08-07] MEDS: Insulin LISPRO* 1 UNITS UNIT SUBCUT SCH ×3 (08:40→17:28)
[2017-08-07] MEDS: Torsemide TAB* 20 MG PO SCH (08:41)
[2017-08-07] MEDS: Tamsulosin CAP* 0.4 MG PO SCH (08:41)
[2017-08-07] MEDS: Metoprolol Tartrate TAB* 25 MG PO SCH ×3 (08:41→20:28)
[2017-08-07] MEDS: Polyethylene Glycol 3350* 17 GM PACKET PO SCH ×2 (08:41→20:29)
[2017-08-07] MEDS: Rivaroxaban TAB(*) 20 MG TAB PO SCH (08:41)
[2017-08-07] MEDS: Ferrous Gluconate TAB* 324 MG TAB PO SCH (08:41)
[2017-08-07] MEDS: Atorvastatin* 40 MG TAB PO SCH (08:41)
[2017-08-07] MEDS: Cholecalciferol TAB* 1000 UNITS PO SCH (08:42)
[2017-08-07] MEDS: Spironolactone TAB* 25 MG PO SCH (08:42)
[2017-08-07] MEDS: Allopurinol TAB* 300 MG PO SCH (08:42)
[2017-08-07] MEDS: Nystatin CREAM* 15 GM TUBE TOPICAL SCH ×2 (08:42→20:29)
[2017-08-07] MEDS: Moisturizing CREAM* 120 GM JAR TOPICAL SCH ×4 (08:42→20:29)
--- NOTE | 2017-08-07 08:48 | PN ---
Subjective Date of Service: 08/07/17 Interval History: C/O dizziness briefly this AM for no reason he can think of. OK now. C/O R chest wall is very hot. No pain. Not SOB. Objective Active Medications: Acetaminophen (Tylenol Tab*) 325 mg PO Q6H PRN PRN Reason: PAIN Last Admin: 08/07/17 05:54 Dose: 325 mg Albuterol (Ventolin 2.5 Mg/3 Ml Neb.Christy*) 2.5 mg INH Q4H PRN PRN Reason: SOB/WHEEZING Last Admin: 08/07/17 04:46 Dose: 2.5 mg Allopurinol (Zyloprim Tab*) 300 mg PO DAILY [facility] Last Admin: 08/07/17 08:42 Dose: 300 mg Atorvastatin Calcium (Lipitor*) 40 mg PO DAILY [facility] Last Admin: 08/07/17 08:41 Dose: 40 mg Cholecalciferol (Vitamin D Tab*) 1,000 units PO DAILY [facility] Last Admin: 08/07/17 08:42 Dose: 1,000 units Dextrose (D50w Syringe 50 Ml*) 12.5 gm IV PUSH .FOR FS < 60 - SS PRN PRN Reason: FS < 60 Docusate Sodium (Colace Cap*) 100 mg PO BID PRN PRN Reason: CONSTIPATION Last Admin: 08/01/17 21:52 Dose: 100 mg Ferrous Gluconate (Fergon Tab*) 324 mg PO DAILY [facility] Last Admin: 08/07/17 08:41 Dose: 324 mg Fluticasone Propionate (Flonase Nasal [place] 50mcg*) 2 spray BOTH NARES DAILY PRN PRN Reason: Allergy Symptoms Last Admin: 07/30/17 08:46 Dose: 2 spray Guaifenesin (Mucinex*) 600 mg PO Q12H PRN PRN Reason: congestion Heparin Sodium (Porcine) (Heparin Flush Picc/Ml/Cvc(*)) 1 - 3 ml FLUSH 0600, 1800 [facility] PRN Reason: Protocol Last Admin: 08/07/17 08:42 Dose: 1 ml Vancomycin HCl 750 mg/ Sodium (Chloride) 250 mls @ 166.667 mls/hr IVPB Q24H [facility] Last Admin: 08/06/17 14:23 Dose: 166.667 mls/hr Insulin Glargine (Lantus(*)) 34 units SUBCUT BEDTIME [facility] Last Admin: 08/06/17 20:48 Dose: 34 unit Insulin Human Lispro (Humalog*) 13 units SUBCUT TID AC [facility] Last Admin: 08/07/17 08:40 Dose: 13 units Levothyroxine Sodium (Synthroid Tab*) 200 mcg PO DAILY@0600 [facility] Last Admin: 08/07/17 05:37 Dose: 200 mcg Metoprolol Tartrate (Lopressor Tab*) 25 mg PO TID [facility] Last Admin: 08/07/17 08:41 Dose: 25 mg Mometasone Furoate/Formoterol Fumar (Dulera 200/5 Mdi*) 2 puff INH BID [facility] PRN Reason: Protocol Last Admin: 08/06/17 19:53 Dose: 2 puff Multi-Ingredient Ointment (Hydrocerin*) 1 applic TOPICAL TID [facility] Last Admin: 08/07/17 08:42 Dose: 1 applic Nystatin (Nystatin Cream*) 1 applic TOPICAL BID [facility] Last Admin: 08/07/17 08:42 Dose: Not Given Oxycodone HCl (Roxycodone Tab*) 5 mg PO Q4H PRN PRN Reason: PAIN - SEVERE Last Admin: 08/06/17 06:14 Dose: 5 mg Pharmacy Consult (Vancomycin Per Pharmacy*) 1 note FOLLOW UP .VANC PER PHARMACY [facility] Phenyleph/Shark Oil/Min Oil/Petrol (Preparation H*) 1 applic [place] Q8H PRN PRN Reason: PAIN Polyethylene Glycol/Electrolytes (Miralax*) 17 gm PO BID [facility] Last Admin: 08/07/17 08:41 Dose: 17 gm Rivaroxaban (Xarelto(*)) 20 mg PO DAILY [facility] Last Admin: 08/07/17 08:41 Dose: 20 mg Senna (Senokot Tab*) 1 tab PO BEDTIME PRN PRN Reason: CONSTIPATION Last Admin: 08/01/17 21:53 Dose: 1 tab Simethicone (Mylicon Tab*) 80 mg PO ACHS PRN PRN Reason: bloating Last Admin: 08/06/17 20:36 Dose: 80 mg Spironolactone (Aldactone Tab*) 50 mg PO DAILY [facility] Last Admin: 08/07/17 08:42 Dose: 50 mg Tamsulosin HCl (Flomax Cap*) 0.4 mg PO DAILY [facility] Last Admin: 08/07/17 08:41 Dose: 0.4 mg Torsemide (Demadex*) 40 mg PO DAILY [facility] Last Admin: 08/07/17 08:41 Dose: 40 mg Vital Signs - 8 hr 08/07/17 08/07/17 08/07/17 03:36 04:48 08:00 Pulse Rate 109 88 Respiratory 19 20 22 Rate Blood Pressure 150/59 (mmHg) O2 Sat by Pulse 100 98 Oximetry Oxygen Devices in Use Now: Nasal Cannula Appearance: Alert, partly up in bed. In good spirits. Looks comfortable. Eyes: No Scleral Icterus Respiratory: Symmetrical Chest Expansion and Respiratory Effort, Clear to Auscultation, Clear to Percussion, - - R chest wall mass red and warm on dependent surface. Cardiovascular: NL Sounds; No Murmurs; No JVD, RRR, No Edema, - Extremities: No Clubbing, Cyanosis, - - tr edema BL, hyperpigmented Skin: No Nodules or Sclerosis, - - hyperpigmented BL lower legs Neurological: Alert and Oriented x 3, NL Sensation Result Diagrams: 08/03/17 06:12 08/07/17 06:30 Additional Lab and Data: Laboratory Results - last 24 hr 07/29/17 07/29/17 07/30/17 17:17 21:45 06:05 Sodium 134 Potassium 4.3 Chloride 89 L Carbon Dioxide 43 H* Anion Gap 2 BUN 47 H Creatinine 1.31 H Est GFR ( Amer) 73.9 Est GFR (Non-Af Amer) 57.5 BUN/Creatinine Ratio 35.9 H Glucose 144 H POC Glucose (mg/dL) 175 H 188 H Calcium 9.2 Magnesium 1.8 L 07/30/17 07:47 Sodium Potassium Chloride Carbon Dioxide Anion Gap BUN Creatinine Est GFR ( Amer) Est GFR (Non-Af Amer) BUN/Creatinine Ratio Glucose POC Glucose (mg/dL) 162 H Calcium Magnesium Microbiology and Other Data: Microbiology 07/26/17 12:15 Tissue - Other Wound Gram Stain - Final 07/26/17 12:15 Tissue - Other Tissue Culture - Final No Growth Day 4 07/26/17 12:15 Tissue - Other Acid Fast Bacilli Smear - Final 07/24/17 16:08 Urine Urine Culture - Final No Growth (<1,000 CFU/mL) 07/24/17 17:43 Nasal Nasal Screen MRSA (PCR)(JEAN CARLOS) - Final Mrsa Not Detected Assess/Plan/Problems-Billing 51 yo male PMH OHS, chronic hypoxic respiratory failure 2/2 OHS (on 5L, cpap at night), diastolic CHF, IDDM, Afib, osteomyelitis s/p right 2nd toe amputation , recent MRSA bacteremia and left foot infection on 8 weeks IV vancomycin p/w chest pressure, weight gain, rapidly enlarging right chest swelling near a previously known [id number] lipoma w/ associated erythema. - Patient Problems (1) Acute on chronic diastolic (congestive) heart failure Current Visit: Yes Status: Acute Priority: High Code(s): I50.33 - ACUTE ON CHRONIC DIASTOLIC (CONGESTIVE) HEART FAILURE SNOMED Code(s): 340737886 Comment: Lasix stopped at [facility] for several weeks prior to presentation Weight today on different scale and indicates large change from other scale Remains net negative ~40L of fluid this admission. Continue spironolactone, torsemide 40 mg daily. (2) Atrial fibrillation Current Visit: Yes Status: Acute Code(s): I48.91 - UNSPECIFIED ATRIAL FIBRILLATION SNOMED Code(s): 86936528 Comment: Continue metoprolol 25mg TID and xarelto. Tele 08/07 started in case of further episodes of "dizziness". ECG. (3) Morbid obesity Current Visit: Yes Status: Acute Code(s): E66.01 - MORBID (SEVERE) OBESITY DUE TO EXCESS CALORIES SNOMED Code(s): 589097424 Comment: BMI 61.0. (4) Foot osteomyelitis, left Current Visit: Yes Status: Acute Code(s): M86.9 - OSTEOMYELITIS, UNSPECIFIED SNOMED Code(s): 8316980032958304 Comment: Continue vancomycin-today is D#41/56. Patient indicated 4 weeks abx. Notes indicate 6 weeks abx. Unclear where 4 weeks changed to 6 wks then 56 days. I indicated this could be discussed with Dr. Fierro when he returns this week. (5) Diabetes mellitus Current Visit: Yes Status: Acute Code(s): E11.9 - TYPE 2 DIABETES MELLITUS WITHOUT COMPLICATIONS SNOMED Code(s): 71577679 Comment: Lantus increased to 38 units on 08/07. Lispro increased 08/03 to 15 units with meals. (6) Hypothyroid Current Visit: No Status: Acute Code(s): E03.9 - HYPOTHYROIDISM, UNSPECIFIED SNOMED Code(s): 34133876 Comment: TSH 1.17 on 06/19. Status and Disposition: Plan discharge home in 24-48hrs when diuretic dose deemed stable.
[2017-08-07] MEDS ORDERED: Torsemide TAB* 20 MG PO SCH (09:00)
[2017-08-07] MEDS: Mometasone/Formoter 200/5 MDI INH SCH ×2 (09:07→19:57)
[2017-08-07] MEDS: Simethicone TAB* 80 MG TAB.CHEW PO PRN ×3 (09:36→20:29)
--- NOTE | 2017-08-07 12:35 | RAD ---
INDICATION: Chest wall mass assess for fluid collection. COMPARISON: Correlation is made with a prior ultrasound study from July 27, [address] of the chest from July 26, 2017. TECHNIQUE: Multiple real-time images of the right chest wall were obtained. FINDINGS: There is a large area of diffuse edematous change in the right chest wall which appears similar to the prior ultrasound study. No focal fluid collection is seen. IMPRESSION: DIFFUSE EDEMATOUS CHANGE, NO FOCAL FLUID COLLECTION IS SEEN.
[2017-08-07] MEDS: Vancomycin(*) 750 MG in NS 0.9% 250 ML* 250 ML IVPB SCH (14:51)
[2017-08-07] MEDS: oxyCODONE TAB* 5 MG TAB PO PRN (14:51)
[2017-08-07] MEDS ORDERED: Insulin GLARGINE(*) 1 UNITS UNIT SUBCUT SCH (21:00)
[2017-08-08] MEDS: Levothyroxine TAB* 100 MCG TAB PO SCH (04:59)
[2017-08-08] MEDS: Acetaminophen TAB* 325 MG PO PRN ×2 (04:59→14:50)
[2017-08-08] MEDS: Albuterol 2.5 MG/3 ML NEB.SOL* (0.083%) INH PRN (05:11)
[2017-08-08 06:39] LABS: ABS Basophils 0.1 10^3/ul (0-0.2); ABS Eosinophils 0.9 10^3/ul (0-0.6); ABS Lymphocytes 0.6 10^3/ul (1.0-4.8); ABS Monocytes 0.6 10^3/ul (0-0.8); ABS Nucleated RBC 0 10^3/ul; Hematocrit 31 % (42-52); Hemoglobin 9.7 g/dl (14.0-18.0); Lymphocyte % 7.3 % (25-47); Mean Corpuscular HGB Conc 31 g/dl (31-36); Mean Corpuscular Hemoglobin 27 pg (27-31); Mean Corpuscular Volume 86 fL (80-94); Mean Platelet Volume 7.7 um3 (7.4-10.4); Nucleated Red Blood Cells % 0; Platelet Count 309 10^3/ul (150-450); Red Blood Count 3.63 10^6/ul (4.0-5.4); Red Cell Distribution Width 18 % (10.5-15); White Blood Count 8.2 10^3/ul (3.5-10.8)
[2017-08-08] MEDS ORDERED: Alteplase (CATHFLO)* 2 MG VIAL IV ONE (08:14)
[2017-08-08] MEDS: Mometasone/Formoter 200/5 MDI INH SCH (08:31)
[2017-08-08] MEDS: Moisturizing CREAM* 120 GM JAR TOPICAL SCH ×2 (09:26→15:16)
[2017-08-08] MEDS: Insulin LISPRO* 1 UNITS UNIT SUBCUT SCH ×2 (09:27→12:25)
[2017-08-08] MEDS: Torsemide TAB* 20 MG PO SCH (09:28)
[2017-08-08] MEDS: Ferrous Gluconate TAB* 324 MG TAB PO SCH (09:28)
[2017-08-08] MEDS: Metoprolol Tartrate TAB* 25 MG PO SCH ×2 (09:28→14:50)
[2017-08-08] MEDS: Spironolactone TAB* 25 MG PO SCH (09:28)
[2017-08-08] MEDS: Tamsulosin CAP* 0.4 MG PO SCH (09:28)
[2017-08-08] MEDS: Atorvastatin* 40 MG TAB PO SCH (09:28)
--- NOTE | 2017-08-08 09:28 | PN ---
Progress Note - Progress Note Date of Service: 08/08/17 SOAP: Subjective: CC: swelling HPI: 51 year old man with morbid obesity: massive swelling of right chest and right abdomen, underlying large lipoma on CT. Swelling in chest improving, not back to baseline yet. Left foot healed. Objective: Vital Signs Temp 36.5 C 08/08/17 07:29 Pulse 73 08/08/17 08:32 Resp 14 08/08/17 08:32 BP 140/43 08/08/17 07:29 Pulse Ox 99 08/08/17 08:32 Intake & Output 08/07/17 08/08/17 08/08/17 18:59 06:59 18:59 Intake Total 550 0 400 Output Total 2750 1850 Balance -2200 -1850 400 Weight 449 lb 12.8 oz Intake: IV Fluids 250 vanco 250 Oral 300 0 400 Output: Wyatt 2750 1850 Other: # Bowel Movements 2 Estimated Stool Amount Large Gen:awake, no distress HEENT:PERRL, MMM Heart:RRR no murmur Lungs:CTA BL Abd:+BS NTND soft Skin: diffuse right chest and abdomen lymphedema MSK: left ankle non tender and no warmth, incision healed Laboratory Results - last 24 hr 08/07/17 08/07/17 08/07/17 11:28 17:14 20:15 WBC RBC Hgb Hct MCV MCH MCHC RDW Plt Count MPV Neut % (Auto) Lymph % (Auto) [place] % (Auto) Eos % (Auto) Baso % (Auto) Absolute Neuts (auto) Absolute Lymphs (auto) Absolute Monos (auto) Absolute Eos (auto) Absolute Basos (auto) Absolute Nucleated RBC Nucleated RBC % Sodium Potassium Chloride Carbon Dioxide Anion Gap BUN Creatinine Est GFR ( Amer) Est GFR (Non-Af Amer) BUN/Creatinine Ratio Glucose POC Glucose (mg/dL) 255 H 196 H 205 H Calcium Magnesium C-Reactive Protein 08/08/17 08/08/17 08/08/17 06:24 06:24 08:21 WBC 8.2 RBC 3.63 L Hgb 9.7 L Hct 31 L MCV 86 MCH 27 MCHC 31 RDW 18 H Plt Count 309 MPV 7.7 Neut % (Auto) 73.2 Lymph % (Auto) 7.3 L [place] % (Auto) 7.5 H Eos % (Auto) 11.0 H Baso % (Auto) 1.0 Absolute Neuts (auto) 6.0 Absolute Lymphs (auto) 0.6 L Absolute Monos (auto) 0.6 Absolute Eos (auto) 0.9 H Absolute Basos (auto) 0.1 Absolute Nucleated RBC 0 Nucleated RBC % 0 Sodium 137 L Potassium 4.3 Chloride 95 L Carbon Dioxide 39 H Anion Gap 3 BUN 67 H Creatinine 1.30 H Est GFR ( Amer) 74.6 Est GFR (Non-Af Amer) 58.0 BUN/Creatinine Ratio 51.5 H Glucose 173 H POC Glucose (mg/dL) 191 H Calcium 9.3 Magnesium 2.0 C-Reactive Protein 5.47 H Assessment: 1. Dependent edema right chest and abdominal wall suspect combination of low albumin, volume overload, and pulmonary hypertension 2. 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 pleural effusion 4. super morbid obesity 5. left foot chronic osteomyelitis, due to MRSA on vancomycin, CRP normalized 6. charcot joint Plan: 1. continue vancomycin day 44, will change to doxycycline for last 2 weeks 2. continue weight bearing for transfer only per Dr Ireland
[2017-08-08] MEDS: Allopurinol TAB* 300 MG PO SCH (09:29)
[2017-08-08] MEDS: Rivaroxaban TAB(*) 20 MG TAB PO SCH (09:29)
[2017-08-08] MEDS: Cholecalciferol TAB* 1000 UNITS PO SCH (09:29)
[2017-08-08] MEDS: Nystatin CREAM* 15 GM TUBE TOPICAL SCH (09:34)
[2017-08-08] MEDS: Polyethylene Glycol 3350* 17 GM PACKET PO SCH (09:34)
--- NOTE | 2017-08-08 13:23 | PN ---
Progress Note - Progress Note Date of Service: 08/08/17 Note: Time spent on discharge 65 minutes.
--- NOTE | 2017-08-08 13:50 | TRS ---
CC: Dr. Plasencia; Dr. Fierro DATE OF ADMISSION: 07/24/2017. DATE OF TRANSFER: 08/08/2017. HOSPITAL COURSE: This 51-year-old man was transferred from [facility] with a complaint of chest pain. The patient was admitted to a monitored bed. He was thought possibly to be in acute on chronic amairani stolic heart failure. He last had an echocardiogram June 2016 with normal ejection fraction. Di astolic function could not be ascertained. He had a repeat echocardiogram here. This showed the zelalem e ejection fraction, 50 to 55 percent. The study was technically limited. There was moderate concent evelio left ventricular hypertrophy. The patient had three troponin values, all of which were within normal limits. He was given diuretics. There is some concern over his renal insufficiency; however, it was fairly s table during this hospital stay. On the day of discharge, his creatinine was 1.30, slightly lower th an recent values. He had a good diuresis in the hospital, some days up nearly 5 liters negative fluid balance. His emily ght fell significantly from [address] Fierro followed him and changed him to Doxycycline and will follow-up with him. He is being tr eated for osteomyelitis of the left toe. On the day of discharge his CRP had fallen significantly to 5.47; it was 14.44 on July 25, 71.55 on June 27. FINAL DIAGNOSES: 1. Acute on chronic congestive heart failure. 2. Atrial fibrillation. 3. Morbid obesity. 4. 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 5. Osteomyelitis left foot. 6. Diabetes mellitus. 7. Hypothyroidism. DISCHARGE MEDICATIONS: 1. Doxycycline 100 mg t.i.d. 2. Tamsulosin 0.4 mg daily. 3. Lispro 10 units t.i.d. with meals. 4. Atorvastatin 40 mg daily. 5. Metoprolol Tartrate 25 mg b.i.d. 6. Budesonide Formoterol 160/4.5 two puffs b.i.d. 7. Rivaroxaban 20 mg daily. 8. Allopurinol 300 mg daily. 9. Spironolactone 50 mg daily. 10. Levothyroxine 200 mg daily. 11. Nystatin cream to affected areas b.i.d. 12. Probiotic one daily. 13. Glargine insulin 44 units at 9:00 p.m. daily. 14. Vitamin D 1,000 units daily. 15. Senna one tablet at bedtime prn. 16. Guaifenesin ER 600 mg b.i.d. 17. Torsemide 40 mg daily. 18. Fluticasone nasal spray two sprays both nares daily prn. 19. Albuterol inhaler one puff every 4 hours prn. 20. Albuterol 2.5 mg by nebulizer every 4 hours prn. 21. Hemorrhoid ointment every 8 hours prn. 22. 0.65% Sodium chloride both nares daily prn. 23. Acetaminophen 325 mg every 6 hours prn. 24. Polyethylene Glycol 17 gm daily. 25. Simethicone 20 mg every 8 hours prn. 26. Oxycodone 5 mg every 4 hours prn. [id number]/[facility] #: [id number]
[2017-08-08] MEDS ORDERED: DOXYcycline CAP(*) 100 MG PO SCH (14:00)
[2017-08-08] MEDS: Simethicone TAB* 80 MG TAB.CHEW PO PRN (14:50)
[2017-08-08 15:25] VITALS: BP 135/85
[2017-08-08] MEDS ORDERED: Insulin GLARGINE(*) 1 UNITS UNIT SUBCUT SCH (21:00)
== END 2017-08-08 16:10 | DRG 194 ==
LOC: ED 15:14 → MEDTELE 17:44 → MED 08-01 09:34
PROVIDERS: ADMIT Hospitalist; ATTEND Internal Medicine
PROC: 0W9F3ZX Drainage of Abdominal Wall, Percutaneous Approach, Diagnostic (ICD-10-PCS; 2017-07-26)
PROC: 0WBF3ZX Excision of Abdominal Wall, Percutaneous Approach, Diagnostic (ICD-10-PCS; 2017-07-26)
PROC: 0J963ZX Drainage of Chest Subcutaneous Tissue and Fascia, Percutaneous Approach, Diagnostic (ICD-10-PCS; principal; 2017-07-31)
PROC: 0WB83ZX Excision of Chest Wall, Percutaneous Approach, Diagnostic (ICD-10-PCS; 2017-07-31)
DX: I13.0 Hypertensive heart and chronic kidney disease with heart failure and stage 1 through stage 4 chronic kidney disease, or unspecified chronic kidney disease (principal); I50.33 Acute on chronic diastolic (congestive) heart failure; J96.11 Chronic respiratory failure with hypoxia; I27.82 Chronic pulmonary embolism; E66.2 Morbid (severe) obesity with alveolar hypoventilation; L03.313 Cellulitis of chest wall; J98.11 Atelectasis; Z68.44 Body mass index [BMI] 60.0-69.9, adult; M86.172 Other acute osteomyelitis, left ankle and foot; M86.672 Other chronic osteomyelitis, left ankle and foot; E11.69 Type 2 diabetes mellitus with other specified complication; E11.40 Type 2 diabetes mellitus with diabetic neuropathy, unspecified; E11.610 Type 2 diabetes mellitus with diabetic neuropathic arthropathy; E11.51 Type 2 diabetes mellitus with diabetic peripheral angiopathy without gangrene; M10.9 Gout, unspecified; E03.9 Hypothyroidism, unspecified; Z82.49 Family history of ischemic heart disease and other diseases of the circulatory system; I48.91 Unspecified atrial fibrillation; Z86.718 Personal history of other venous thrombosis and embolism; Z99.81 Dependence on supplemental oxygen; Z89.421 Acquired absence of other right toe(s); I42.9 Cardiomyopathy, unspecified; M19.90 Unspecified osteoarthritis, unspecified site; N18.3 Chronic kidney disease, stage 3 (moderate); J44.9 Chronic obstructive pulmonary disease, unspecified; E11.22 Type 2 diabetes mellitus with diabetic chronic kidney disease; R22.2 Localized swelling, mass and lump, trunk; Z83.3 Family history of diabetes mellitus; E78.00 Pure hypercholesterolemia, unspecified; Z87.891 Personal history of nicotine dependence; Z88.8 Allergy status to other drugs, medicaments and biological substances; E78.5 Hyperlipidemia, unspecified; N61.0 Mastitis without abscess; A49.02 Methicillin resistant Staphylococcus aureus infection, unspecified site; D64.9 Anemia, unspecified; Z56.0 Unemployment, unspecified; Z91.14 Patient's other noncompliance with medication regimen; I27.29 Other secondary pulmonary hypertension; K43.9 Ventral hernia without obstruction or gangrene; Z79.4 Long term (current) use of insulin
CPT/HCPCS: 10021; 10022; 36415; 71045; 71250; 71275; 74177; 76604; 76705; 76942; 80048; 80053; 80202; 81003; 81015; 82272; 82565; 82607; 82728; 82746; 83010; 83540; 83550; 83605; 83615; 83735; 83880; 84238; 84484; 84520; 85025; 85027; 85045; 85379; 85610; 85652; 85730; 86140; 87070; 87086; 87102; 87116; 87205; 87206; 87641; 88172; 88173; 88177; 88305; 93005; 93306; 94640; 94660; 94760; 99285; A9270-GY; C8929; J0696; J1120; J1940; J2997; J3370; J3475; Q9967

== ENCOUNTER 2017-09-27 01:47 | Inpatient (IN) | payer BC, MEDICARE ==
[2017-09-27] MEDS ORDERED: Cyclobenzaprine TAB* 10 MG PO ONE (01:56)
[2017-09-27] MEDS ORDERED: oxyCODONE/Acetamin 5/325 MG* TAB PO ONE ×2 (01:57→17:00)
[2017-09-27] MEDS ORDERED: Meclizine TAB* 12.5 MG PO ONE (03:51)
[2017-09-27] MEDS ORDERED: Albuterol 2.5 MG/3 ML NEB.SOL* (0.083%) INH PRN (04:27)
[2017-09-27] MEDS ORDERED: Senna TAB PO PRN (04:27)
[2017-09-27] MEDS ORDERED: Simethicone TAB* 80 MG TAB.CHEW PO PRN (04:27)
--- NOTE | 2017-09-27 04:56 | ED ---
Chris Obrien Jennifer, scribed for Avtar Miranda MD on 09/27/17 at 0158 . Back Pain - HPI Summary HPI Summary: The patient is a 51 year old male who presents with back pain after a fall tonight. The patient states his afib made him dizzy, which caused him to fall. Patient reports he fell right on his tailbone and couldnt stand up by himself. He additionally complains of twisting his left foot. - History of Current Complaint Stated Complaint: FALL, BACK INJURY Hx Obtained From: Patient Onset/Duration: Sudden Onset, Still Present Onset/Duration: Still Present Timing: Constant Back Pain Location: Is Diffuse - entire back Severity Initially: Severe Severity Currently: Severe Pain Scale Used: 0-10 Numeric Aggravating Symptom(s): Walking Alleviating Symptom(s): Nothing Associated Signs And Symptoms: Positive: Other - back pain, leg pain - Allergies/Home Medications Allergies/Adverse Reactions: Allergies Allergy/AdvReac Type Severity Reaction Status Date / Time tigecycline Allergy Rash Verified 09/27/17 01:55 Home Medications: Home Medications Metolazone 5 mg PO DAILY 09/27/17 [History Confirmed 09/27/17] PMH/Surg Hx/FS Hx/Imm Hx Endocrine/Hematology History: Reports: Hx Diabetes, Hx Thyroid Disease, Hx Anemia Cardiovascular History: Reports: Hx Atrial Fibrillation, Hx Congestive Heart Failure, Hx Deep Vein Thrombosis, Hx Embolism, Hx Hypercholesterolemia, Hx Hypertension, Hx Peripheral Vascular Disease, Other Cardiovascular Problems/ Disorders - cardiomyopathy, IDDM, CHRONIC RENAL FAILURE, MORBID OBESITY Denies: Hx Pacemaker/ICD Respiratory History: Reports: Hx Asthma, Hx Chronic Obstructive Pulmonary Disease (COPD) - on 5L home O2, Hx Pneumonia, Hx Pulmonary Embolism, Hx Sleep Apnea - compliant with cpap, Other Respiratory Problems/Disorders - SLEEP APNEA History: Reports: Hx Chronic Renal Failure Comment Only: Other Problems/Disorders - CKD Musculoskeletal History: Reports: Hx Arthritis, Hx Back Problems, Hx Gout Sensory History: Denies: Hx Cataracts, Hx Contacts or Glasses, Hx Eye Injury, Hx Hearing Aid, Hx Hearing Problem, Other Sensory Impairments Opthamlomology History: Denies: Hx Cataracts, Hx Contacts or Glasses, Hx Eye Injury, Other Sensory Impairments Psychiatric History: Denies: Hx Panic Disorder - Surgical History Surgery Procedure, Year, and Place: WOUND DEBRIDING 1989, R 2nd toe amputation, 2017 - Immunization History Date of Tetanus Vaccine: utd Date of Influenza Vaccine: fall 2014 Infectious Disease History: Reports: Hx of Known/Suspected MRSA Denies: Hx Shingles, Hx Tuberculosis, History Other Infectious Disease - Family History Known Family History: Positive: Cardiac Disease, Diabetes - Social History Alcohol Use: None Hx Substance Use: No Substance Use Type: Reports: None Hx Tobacco Use: Yes Smoking Status (MU): Former Smoker Type: Cigars Review of Systems Negative: Fever Musculoskeletal: Other - Twisting left foot Positive: Myalgia - back pain All Other Systems Reviewed And Are Negative: Yes Physical Exam - Summary Physical Exam Summary: Appearance: Morbid obesity, no pain distress Skin: Redness in gluteal cleft with breakdown of the skin Head/face: normal Eyes: EOMI, KASSIDY ENT: normal Neck: supple, non-tender Respiratory: diminished breath sounds on both sides breath sounds present Cardiovascular: Regular rate. Irregularly irregular rhythm but rate controlled, pulses symmetrical Abdomen: non-tender, soft Bowel Sounds: present Musculoskeletal: Deep end edema at large deformed charcot foot, lymphedema in right back pectoral, left side paraspinal muscular tenderness, chronic edema with stasis dermatitis in both legs, strength/ROM intact Neuro: normal, sensory motor intact, A&Ox3 Triage Information Reviewed: Yes Vital Signs On Initial Exam: Initial Vitals Temp Pulse Resp BP Pulse Ox 97.8 F 97 20 127/83 97 09/27/17 01:51 09/27/17 01:51 09/27/17 01:51 09/27/17 01:51 09/27/17 01:51 Vital Signs Reviewed: Yes Diagnostics - Vital Signs Vital Signs Temp Pulse Resp BP Pulse Ox 09/27/17 02:02 20 09/27/17 01:51 97.8 F 97 20 127/83 97 - Laboratory Lab Statement: Any lab studies that have been ordered have been reviewed, and results considered in the medical decision making process. - Radiology Ankle XR Xray Interpretation: No Acute Changes - Significant degenerative chances charcot foot. No change from previous. Radiology Interpretation Completed By: ED Physician - CT CT L-Spine CT Interpretation: No Acute Changes - There is mild lumbar scoliosis. No acute lumbar fracture is seen. There is lumbar endplate spondylosis and facet arthropathy. There is degenerative loss of disc space height at L3-L4 and L4- L5. There is vacuum disc phenomena at these levels. There is diffuse bony demineralization. There is diffuse bulging of the annulus L3-L4. There is moderate central stenosis at this level. There is also mild/moderate diffuse bulging of the annulus at L4-L5 with mild central stenosis at this level. Dr. Miranda has reviewed this report. CT Interpretation Completed By: Radiologist CT Brain CT Interpretation: No Acute Changes - There is no skull fracture seen. There is no acute intracranial hemorrhage/ No brain mass is seen. There is no midline shift. No evidence of acute infarction. Arterial calcification noted. There is minimal mucosal thickening noted in the right maxillary sinus. Mastoid air cells are normally pneumatized. Dr. Miranda has reviewed this report. CT Interpretation Completed By: Radiologist - EKG 0212 EKG Rhythm: Atrial Fibrillation - [address] Segment: Non-Specific EKG Interpretation: Normal axis, normal intervals Re-Evaluation - Re-Evaluation First Eval Re-Evaluation Time: 03:51 Change: Unchanged Comment: Patient is refusing discharge at this time. Second Eval Re-Evaluation Time: 04:30 Change: Unchanged Comment: The patient refused to walk or get discharged. I talked to Dr. Do. She will admit him. The patient is isntructed that he may have to pay for fdc admission. Back Pain Course/Dx - Course Course Of Treatment: Patient with fall today with left sided muscular discomfort in his back. And injury to his chronically debilitated left ankle. He is comfortable in bed. His CT of the brain, lumbar area shows no acute findings. He was reporting that his heart rate went up to 190. He has had no tachycardia here. We attempted to stand and walk him however he refuses to try. He reports that he has rotational dizziness but there is no nystagmus. After I reported that we would admit him he would move his head about freely with what looked like a spontaneous resolution of his rotational dizziness. He does have a intertrigo in his gluteal crease which is likely from poorly controlled diabetes or may be related to his psoriasis. He is not complaining of itching, burning or discomfort in the area. He refuses to try to walk and states that he would much rather stay and be evaluated. I discussed the case with the hospitalist who feels as though his stay may be fdc. He was informed that his hospitalization may be fdc on he may be required to pay. He remained very stable. - Diagnoses Differential Diagnosis/HQI/PQRI: Positive: Other - Lumbar strain, contusion, ankle sprain, lumbar fracture, A. fib with RVR, dehydration, hyperglycemia Provider Diagnoses: Fall, Lumbar strain, Dizziness, Intertrigo, Morbid obesity, Insulin dependent diabetes mellitus, Charcot's joint of foot in type 2 diabetes mellitus - Provider Notifications Discussed Care Of Patient With: Alysia Do Time Discussed With Above Provider: 04:31 Instructed by Provider To: Admit As Inpatient Discharge - Sign-Out/Discharge Documenting (check all that apply): Discharge/Admit/Transfer - Discharge Plan Condition: Stable Disposition: ADMITTED TO [facility] Referrals: Lencho Plasencia MD [Primary Care Provider] - - Billing Disposition and Condition Condition: STABLE [place] [place] The documentation as recorded by the Chris gillespie Jennifer accurately reflects the service I personally performed and the decisions made by , Avtar Miranda MD.
[2017-09-27 04:57] LABS: Urine Appearance Clear; Urine Blood 1+ (Negative); Urine Color Yellow; Urine Ketones Negative (Negative); Urine Protein 1+(30 mg/dL) (Negative); Urine Urobilinogen Negative (Negative)
[2017-09-27 05:00] LABS: Hematocrit 34 % (42-52); Hemoglobin 10.7 g/dl (14.0-18.0); Mean Corpuscular HGB Conc 32 g/dl (31-36); Mean Corpuscular Hemoglobin 26 pg (27-31); Mean Corpuscular Volume 82 fL (80-94); Mean Platelet Volume 6.6 um3 (7.4-10.4); Platelet Count 511 10^3/ul (150-450); Red Blood Count 4.08 10^6/ul (4.0-5.4); Red Cell Distribution Width 17 % (10.5-15); White Blood Count 19.5 10^3/ul (3.5-10.8)
[2017-09-27 05:16] LABS: EGFR Non-African American 67.5 (>60)
[2017-09-27 05:19] LABS: ABS Basophils 0 10^3/ul (0-0.2); ABS Eosinophils 0.1 10^3/ul (0-0.6); ABS Lymphocytes 0.7 10^3/ul (1.0-4.8); ABS Monocytes 1.5 10^3/ul (0-0.8); ABS Neutrophils 17.2 10^3/ul (1.5-7.7); ABS Nucleated RBC 0 10^3/ul; Eosinophil % 0.7 % (0-6); Lymphocyte % 3.5 % (25-47); Nucleated Red Blood Cells % 0
[2017-09-27] MEDS: guaiFENesin ER TAB 600 MG PO SCH ×2 (06:43→15:01)
[2017-09-27] MEDS: Levothyroxine TAB* 100 MCG TAB PO SCH (06:43)
[2017-09-27] MEDS ORDERED: Magnesium Sulfate 2 GM IV* 2 GM/50 ML BAG IVPB ONE ×2 (07:05→16:48)
[2017-09-27] MEDS ORDERED: NS 0.9% 1000 ML* 1,000 ML IV SCH (07:15)
--- NOTE | 2017-09-27 07:57 | RAD ---
HISTORY: Left ankle pain, fall, history of Charcot foot COMPARISONS: August 15, 2012 VIEWS: 2, Frontal and lateral views of the left ankle FINDINGS: BONE DENSITY: Normal. BONES: There is a complex chronic fracture of the left midfoot with minimal displacement, similar to the previous examination. There are calcaneal enthesophytes. JOINTS: There is advanced osteoarthritis of the midfoot. There is advanced osteoporosis of the subtalar joint. There has been progression of the subtalar joint osteoarthritis. ALIGNMENT: There is no dislocation. SOFT TISSUES: There is peripheral arterial calcification. OTHER FINDINGS: None. IMPRESSION: 1. ADVANCED OSTEOARTHRITIS WITH CHRONIC FRACTURES OF THE MIDFOOT CONSISTENT WITH THE GIVEN HISTORY OF NEUROPATHIC JOINT. 2. PERIPHERAL ARTERIAL DISEASE. 3. THERE HAS BEEN PROGRESSION OF THE SUBTALAR JOINT OSTEOARTHRITIS. 4. THERE IS NO ACUTE OSSEOUS INJURY, THOUGH GIVEN THE CHRONIC CHANGES, ACUTE INJURY MAY BE RADIOGRAPHICALLY OCCULT. IF SYMPTOMS PERSIST, RECOMMEND REPEAT IMAGING
--- NOTE | 2017-09-27 07:57 | RAD ---
INDICATION: Fall. Intracranial injury. COMPARISON: June 10, 2014 TECHNIQUE: Noncontrast axial source images were acquired from the skull base to the vertex. FINDINGS: Ventricles/sulci: There is mild cortical atrophy with compensatory dilatation of the CSF spaces. Brain parenchyma: There is no focal parenchymal finding, evidence of intracranial mass, or intracranial mass effect. Intracranial hemorrhage:None. Extra-axial spaces: There are no abnormal extra axial fluid collections or evidence of extra-axial mass. Calvarium: There is no calvarial fracture or other calvarial abnormality. Scalp: There is no evidence of scalp or extracalvarial soft tissue abnormality. Paranasal sinuses/mastoid: The paranasal sinuses and mastoid air cells are clear. Other: None. IMPRESSION: NO ACUTE INTRACRANIAL FINDINGS.
--- NOTE | 2017-09-27 08:02 | RAD ---
HISTORY: Fall, back injury COMPARISONS: CT dated July 26, 2017 TECHNIQUE: Multiple contiguous axial CT scans were obtained of the lumbar spine without intravenous contrast, with coronal and sagittal multiplanar reformations. FINDINGS: The study is limited by patient body habitus. SPINAL CANAL: Evaluation of the central canal is limited on CT technique; however, there is no obvious canalicular mass or epidural hemorrhage. ALIGNMENT: The alignment is normal. VERTEBRAL BODIES: There is anterolateral marginal osteophyte formation most pronounced at L3-L4 and L4-L5. There is no displaced fracture. JOINTS: There is facet osteoarthritis along the lower lumbar spine. MUSCULATURE: Unremarkable INTERVERTEBRAL DISCS: There is diffuse loss of intervertebral disc height throughout the spine. Vacuum phenomena are noted at L3-L4 and L4-L5 AXIAL IMAGES: T10-T11: There is no osseous neural foraminal area or central canal stenosis. T11-T12: There is no osseous neural foraminal narrowing or central canal stenosis. T12-L1: There is no osseous neural foraminal narrowing or central canal stenosis. L1-L2: There is no osseous neural foraminal narrowing or central canal stenosis. L2-L3: There is no osseous neural foraminal narrowing or central canal stenosis. L3-L4: There is posterior osteophytic ridging with osteophyte fraction at the neural foramina bilaterally at bilateral facet hypertrophy. There is severe left and mild right neural foraminal narrowing. There is moderate narrowing of the central canal.. L4-L5: There is a broad-based disc bulge with ligamentous and facet hypertrophy. There is marginal osteophyte formation at the neural foramina bilaterally. There is moderate right and mild left neural foraminal narrowing. There is mild narrowing of the central canal. L5-S1: There is bilateral facet hypertrophy. There is no significant neural foraminal narrowing central canal stenosis. SOFT TISSUES: The visualized soft tissues of the abdomen are unremarkable. OTHER: None IMPRESSION: 1. DEGENERATIVE DISC DISEASE AND OSTEOARTHRITIS, MOST PRONOUNCED OF L3-L4, L4-L5, AND L5-S1, DESCRIBED ABOVE. 2. NO ACUTE OSSEOUS INJURY TO THE VISUALIZED PORTION OF THE SPINE.
[2017-09-27] MEDS: Mometasone/Formoter 200/5 MDI INH SCH ×2 (08:37→20:26)
[2017-09-27] MEDS: Tamsulosin CAP* 0.4 MG PO SCH (08:45)
[2017-09-27] MEDS: Rivaroxaban TAB(*) 20 MG TAB PO SCH (08:45)
[2017-09-27] MEDS: Spironolactone TAB* 25 MG PO SCH (08:45)
[2017-09-27] MEDS: Cholecalciferol TAB* 1000 UNITS PO SCH (08:45)
[2017-09-27] MEDS: Atorvastatin* 40 MG TAB PO SCH (08:45)
[2017-09-27] MEDS: Polyethylene Glycol 3350* 17 GM PACKET PO SCH ×2 (08:46→21:44)
[2017-09-27] MEDS: Metoprolol Tartrate TAB* 25 MG PO SCH ×2 (08:46→21:33)
[2017-09-27] MEDS: Allopurinol TAB* 300 MG PO SCH (08:46)
[2017-09-27] MEDS: Insulin LISPRO* 1 UNITS UNIT SUBCUT SCH ×3 (08:58→17:25)
[2017-09-27] MEDS: Nystatin CREAM* 15 GM TUBE TOPICAL SCH ×2 (09:58→22:46)
[2017-09-27] MEDS: oxyCODONE TAB* 5 MG TAB PO PRN ×2 (10:33→21:33)
--- NOTE | 2017-09-27 11:14 | HP ---
CC: Dr. Plasencia.* HISTORY AND PHYSICAL: DATE OF ADMISSION: 09/27/17. PRIMARY CARE PROVIDER: Dr. Plasencia. CHIEF COMPLAINT: Dizziness and fall. HISTORY OF PRESENT ILLNESS: Mr. Anderson is a 51-year-old male, who is well known to the hospitalist service for multiple previous hospitalizations, who presented to the emergency room today with complaints of dizziness and fall. The patient states that on the day prior to admission throughout the daytime hour, he is feeling okay. However, once evening hit, when he got up with his walker to try to go to the bathroom, he felt very hot and like he was going to fall down. He states he caught himself from falling. He then later in the evening got up to do the same thing and he again felt very hot and again caught himself from falling. Ultimately, he did get up and he took a fall to the floor. There was no loss of consciousness. The patient believes that he twisted his left ankle when he fell. He also states that he hit the back of his head and his back when he went down and is having pain specifically in his back. The patient's states that generally he has been doing okay. He has been out of [place] for approximately 1 month. He has been working on losing weight. He is down to about 350 pounds. PAST MEDICAL HISTORY: 1. Supramorbid obesity. 2. VENTURA, on CPAP. 3. Type 2 diabetes. 4. Chronic hypoxic respiratory failure secondary to obesity hypoventilation. 5. History of DVT/PE. 6. Hyperlipidemia. 7. Stage 3 chronic kidney disease. 8. Hypertension. 9. Peripheral vascular disease. 10. Hypothyroidism. 11. Arthritis. 12. Gout. 13. History of osteomyelitis of the right 2nd toe, status post amputation. MEDICATIONS: 1. Preparation H one application p.r. q.8 hours p.r.n. hemorrhoids. 2. Vitamin D 1000 units p.o. daily. 3. Symbicort 160/4.5 two puffs inhaled twice daily. 4. Albuterol one puff inhaled q.4 hours p.r.n. shortness of breath. 5. Tylenol 325 mg p.o. q.6 hours p.r.n. pain. 6. Simethicone 80 mg p.o. q.8 hours p.r.n. gas bloating. 7. Senna one tab p.o. q.h.s. p.r.n. constipation. 8. Nystatin cream apply topically twice daily to candidal rash. 9. Probiotic one cap p.o. daily. 10. Lispro 10 units subcutaneous t.i.d. 11. Lantus 44 units subcutaneous q.h.s. 12. Guaifenesin ER 600 mg p.o. q.12 hours. 13. Flomax 0.4 mg p.o. daily. 14. Sodium chloride nasal spray two squirts to both nostrils daily p.r.n. congestion. 15. Flonase two squirts both nostrils daily p.r.n. congestion. 16. MiraLax 17 g p.o. b.i.d. 17. Lipitor 40 mg p.o. daily. 18. Albuterol one neb inhale q. 4 hours p.r.n. shortness of breath. 19. Xarelto 20 mg p.o. daily. 20. Levothyroxine 200 mcg p.o. daily. 21. Metolazone 5 mg p.o. daily (per patient this is on hold for 1 month). 22. Metoprolol tartrate 25 mg p.o. b.i.d. 23. Oxycodone 5 mg p.o. q.4 hours p.r.n. pain. 24. Torsemide 40 mg p.o. daily (per patient this is on hold for 1 month). 25. Spironolactone 50 mg p.o. daily. 26. Allopurinol 600 mg p.o. daily. ALLERGIES: TIGECYCLINE. FAMILY HISTORY: Mom is living at 72 and has a history of fibromyalgia. Dad is also living. He is 76 and has a history of diabetes and heart disease. SOCIAL HISTORY: The patient is a former smoker. He quit approximately 20 years ago. He does not drink alcohol. 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 He is . He has 1 child. His Lauren, is his healthcare proxy. REVIEW OF SYSTEMS: A complete 11-system review of systems is obtained. Pertinent positives and negatives are as per HPI and otherwise negative. PHYSICAL EXAMINATION GENERAL: The patient is a well-developed, morbidly-obese middle-aged male, seen lying on his right side in the stretcher rolling from right side to the back without any difficulty and in no acute distress. VITAL SIGNS: Blood pressure 127/83, pulse 97, respirations 20, temp 97.8, O2 sat 97% on 3 L. HEENT: Pupils are equal and round. Extraocular muscle are intact. Oropharynx is clear. Oral mucosa is moist. There is no submandibular, cervical, or supraclavicular adenopathy. Thyroid is not enlarged. No thyroid nodules are noted. PULMONARY: Lungs are clear to auscultation bilaterally. CARDIAC: Normal S1, S2. Heart rate is irregularly irregular, but controlled. There is no significant lower extremity edema. There is some dependent edema in a large fleshy mass that arises from the right lateral chest wall. This is markedly reduced from the last time I saw the patient in August 2017. ABDOMEN: Bowel sounds are present. Abdomen is obese, soft, nontender, and nondistended. MUSCULOSKELETAL: There is no cyanosis or clubbing of the digits. There is full active range of motion of all 4 extremities. SKIN: Warm and dry. There are no rashes. There are chronic venous stasis changes to the bilateral lower extremities. NEUROLOGIC: Cranial nerves II through XII are grossly intact. Sensation is intact to light touch throughout. Strength is 5/5 and symmetric in both upper and lower extremities bilaterally. PSYCH: The patient is alert. He is oriented x3. Affect appears appropriate. LABORATORY DATA: Labs are pending. Ankle x-rays, pending read from radiologist. Lumbar spine CT reveals mild lumbar scoliosis. No acute lumbar fracture seen. There is lumbar endplate spondylosis and facet arthropathy. There is degenerative loss of disk space and height at L3-4 and L4-5. There is vacuum disk phenomenon at these levels. There is diffuse bony demineralization. There is diffuse bulging of the annulus at L3-4. There is moderate central stenosis at this level. There is also mild/moderate diffuse bulging of the annulus at L4-5 with mid central stenosis at this level. CT brain reveals no skull fracture. No acute intracranial hemorrhage. No brain mass is seen. No evidence of acute infarction. ASSESSMENT AND PLAN: Mr. Anderson is a 51-year-old male well known to myself with multiple chronic medical conditions, who presents to the emergency room after sustaining a fall at home with preceding episodes of feeling very hot and like he may fall. 1. Fall. The etiology behind this is unclear. The patient refused to get up and ambulate in the emergency room with the ER provider. The ER provider felt that the patient could be discharged home. The patient refuses at this time. Therefore, the patient is going to be admitted under long-term care. Labs will be obtained to ensure that he is not markedly dehydrated. If lab work shows he is dehydrated, the long-term admission can be converted to OBV. 2. Diastolic congestive heart failure. The patient currently appears relatively euvolemic, which is a dramatic change from last time I saw the patient. His weight is down significantly since the end of his last hospitalization. His diuretics have been placed on hold by his primary care provider. As above, we will get labs to evaluate his intravascular volume status. However, clinically on exam, the patient appears euvolemic. 3. Atrial fibrillation. The patient's heart rate is controlled. He will continue on metoprolol tartrate 25 mg twice daily and Xarelto. 4. Type 2 diabetes. The patient will continue on Lantus and Lispro as ordered. I will obtain glucoses a.c. and h.s. We will follow these to make adjustments as needed. 5. History of DVT/PE. Continue Xarelto. 6. Stage 3 chronic kidney disease. The patient's creatinine on the last blood work obtained at [facility] which was 08/22/17, revealed his creatinine to be stable from where he was during his hospitalization. We will be getting labs very soon and we will reevaluate this. 7. Gout. We will continue allopurinol. 8. Constipation. Continue current bowel regimen. 9. Hypothyroidism. Continue current dose of Synthroid. Most recent TSH on 06/24 was within good range. 10. DVT prophylaxis. According to the Adult Thrombosis Prophylaxis Risk Factor Assessment Guide, the patient has a total risk factor score of 3 making him high risk. He is already on Xarelto and DVT prophylaxis. 11. Code status is full. TIME SPENT: Sixty-five minutes were spent admitting this patient under long-term care to which he and his agree pending the results of labs. [id number]/[facility] #: [id number] VIGNESH
[2017-09-27] MEDS: Acetaminophen TAB* 325 MG PO PRN (12:08)
[2017-09-27 16:25] LABS: EGFR Non-African American 68.1 (>60)
[2017-09-27] MEDS ORDERED: oxyCODONE/Acetamin 10/325(NF) TAB PO ONE (16:47)
[2017-09-27] MEDS ORDERED: oxyCODONE TAB* 5 MG TAB PO ONE (17:00)
--- NOTE | 2017-09-27 19:09 | PN ---
Subjective Interval History: Pt seen and examined. 51 yo Hx of MRSA bacteremia, left ankle infection, morbid obesity, recent severe CHF exacerbation, Afib on xarelto presenting with fall. Reports his HR was 190 at time when he checked with pulse monitor at home. Found to have leukocytosis, Hyponatremia. Na improved 127 from 124. Repleting Magnesium. Chief complaint of left ankle swelling/pain and right clavicle pain. has been off torsemide 40mg daily for a while. CRP and blood cultures added. CRP quite elevated. ID consult, starting vancomycin. MRI left ankle and xray left clavicle ordered. Objective Active Medications: Acetaminophen (Tylenol Tab*) 325 mg PO Q6H PRN PRN Reason: PAIN Last Admin: 09/27/17 12:08 Dose: 325 mg Albuterol (Ventolin 2.5 Mg/3 Ml Neb.Christy*) 2.5 mg INH Q4H PRN PRN Reason: SOB/WHEEZING Allopurinol (Zyloprim Tab*) 600 mg PO DAILY [facility] Last Admin: 09/27/17 08:46 Dose: 600 mg Atorvastatin Calcium (Lipitor*) 40 mg PO DAILY [facility] Last Admin: 09/27/17 08:45 Dose: 40 mg Cholecalciferol (Vitamin D Tab*) 1,000 units PO DAILY [facility] Last Admin: 09/27/17 08:45 Dose: 1,000 units Guaifenesin (Mucinex*) 600 mg PO Q12H [facility] Last Admin: 09/27/17 15:01 Dose: Not Given Sodium Chloride (Ns 0.9% 1000 Ml*) 1,000 mls @ 75 mls/hr IV PER RATE [facility] Last Admin: 09/27/17 10:45 Dose: 75 mls/hr Insulin Glargine (Lantus(*)) 44 units SUBCUT BEDTIME [facility] Insulin Human Lispro (Humalog*) 10 units SUBCUT TID PC [facility] Last Admin: 09/27/17 17:25 Dose: 10 units Levothyroxine Sodium (Synthroid Tab*) 200 mcg PO DAILY@0600 [facility] Last Admin: 09/27/17 06:43 Dose: 200 mcg Metoprolol Tartrate (Lopressor Tab*) 25 mg PO BID [facility] Last Admin: 09/27/17 08:46 Dose: 25 mg Mometasone Furoate/Formoterol Fumar (Dulera 200/5 Mdi*) 2 puff INH BID [facility] PRN Reason: Protocol Last Admin: 09/27/17 08:37 Dose: Not Given Nystatin (Nystatin Cream*) 1 applic TOPICAL BID [facility] Last Admin: 09/27/17 09:58 Dose: 1 top.gel Oxycodone HCl (Roxycodone Tab*) 5 mg PO Q4H PRN PRN Reason: PAIN - SEVERE Last Admin: 09/27/17 10:33 Dose: 5 mg Polyethylene Glycol/Electrolytes (Miralax*) 17 gm PO BID [facility] Last Admin: 09/27/17 08:46 Dose: Not Given Rivaroxaban (Xarelto(*)) 20 mg PO DAILY [facility] Last Admin: 09/27/17 08:45 Dose: 20 mg Senna (Senokot Tab*) 1 tab PO BEDTIME PRN PRN Reason: CONSTIPATION Simethicone (Mylicon Tab*) 80 mg PO Q8H PRN PRN Reason: NAUSEA Spironolactone (Aldactone Tab*) 50 mg PO DAILY [facility] Last Admin: 09/27/17 08:45 Dose: 50 mg Tamsulosin HCl (Flomax Cap*) 0.4 mg PO DAILY [facility] Last Admin: 09/27/17 08:45 Dose: 0.4 mg Vital Signs - 8 hr 09/27/17 09/27/17 09/27/17 12:06 15:13 17:24 Temperature 98.0 F Pulse Rate 111 Respiratory 18 20 18 Rate Blood Pressure 122/55 (mmHg) O2 Sat by Pulse 100 Oximetry 09/27/17 09/27/17 09/27/17 17:25 18:15 18:16 Temperature Pulse Rate Respiratory 18 18 18 Rate Blood Pressure (mmHg) O2 Sat by Pulse Oximetry Oxygen Devices in Use Now: Nasal Cannula Result Diagrams: 09/27/17 19:19 09/27/17 15:29 Microbiology and Other Data: Microbiology 09/27/17 08:41 Nasal Screen MRSA (PCR)(JEAN CARLOS) - Final Nasal Mrsa Not Detected Assess/Plan/Problems-Billing Assessment:
[2017-09-27 20:31] LABS: ABS Basophils 0.1 10^3/ul (0-0.2); ABS Eosinophils 0.3 10^3/ul (0-0.6); ABS Lymphocytes 0.6 10^3/ul (1.0-4.8); ABS Monocytes 1.4 10^3/ul (0-0.8); ABS Neutrophils 14.9 10^3/ul (1.5-7.7); ABS Nucleated RBC 0 10^3/ul; Eosinophil % 1.5 % (0-6); Hematocrit 33 % (42-52); Hemoglobin 10.4 g/dl (14.0-18.0); Lymphocyte % 3.5 % (25-47); Mean Corpuscular HGB Conc 32 g/dl (31-36); Mean Corpuscular Hemoglobin 26 pg (27-31); Mean Corpuscular Volume 82 fL (80-94); Nucleated Red Blood Cells % 0; Platelet Count 552 10^3/ul (150-450); Red Blood Count 4.01 10^6/ul (4.0-5.4); Red Cell Distribution Width 17 % (10.5-15); White Blood Count 17.2 10^3/ul (3.5-10.8)
[2017-09-27] MEDS: Insulin GLARGINE(*) 1 UNITS UNIT SUBCUT SCH (21:34)
--- NOTE | 2017-09-27 22:31 | RAD ---
Indication: Right clavicle pain after a fall Comparison: CT of the chest July 25, 2017 Technique: AP and cephalad oblique views RIGHT clavicle. Report: The AC joint measures just over 5 mm in diameter, a top normal joint space measurement. There is a focus of calcification measuring 8 mm immediately anterior and lateral to the right humeral head at the expected location of the supraspinatus tendon. The visualized bones are otherwise intact and appropriately aligned. IMPRESSION: 1. Top normal with of the right AC joint could be seen in the setting of grade 1 AC separation injury. 2. Calcification overlying the expected location of the supraspinatus tendon could be seen in the setting of calcific tendinitis.
[2017-09-27] MEDS ORDERED: Vancomycin(*) 1,000 MG VIAL IVPB SCH (23:00)
[2017-09-27] MEDS ORDERED: Vancomycin per Pharmacy* NOTE FOLLOW UP SCH (23:00)
[2017-09-27] MEDS ORDERED: Vancomycin(*) 2,000 MG in NS 0.9% 500 ML* 500 ML IVPB ONE (23:00)
[2017-09-28] MEDS: Levothyroxine TAB* 100 MCG TAB PO SCH (06:03)
[2017-09-28] MEDS: oxyCODONE TAB* 5 MG TAB PO PRN ×5 (06:15→23:57)
[2017-09-28] MEDS: guaiFENesin ER TAB 600 MG PO SCH ×2 (06:18→16:27)
[2017-09-28] MEDS ORDERED: Vancomycin(*) 1,250 MG in NS 0.9% 250 ML* 250 ML IVPB SCH (08:00)
[2017-09-28] MEDS: Insulin LISPRO* 1 UNITS UNIT SUBCUT SCH ×3 (08:33→17:43)
[2017-09-28] MEDS: Tamsulosin CAP* 0.4 MG PO SCH (08:34)
[2017-09-28] MEDS: Rivaroxaban TAB(*) 20 MG TAB PO SCH (08:34)
[2017-09-28] MEDS: Atorvastatin* 40 MG TAB PO SCH (08:34)
[2017-09-28] MEDS: Spironolactone TAB* 25 MG PO SCH (08:34)
[2017-09-28] MEDS: Allopurinol TAB* 300 MG PO SCH (08:34)
[2017-09-28] MEDS: Metoprolol Tartrate TAB* 25 MG PO SCH ×2 (08:34→20:05)
[2017-09-28] MEDS: Cholecalciferol TAB* 1000 UNITS PO SCH (08:34)
[2017-09-28] MEDS: Polyethylene Glycol 3350* 17 GM PACKET PO SCH ×2 (08:43→20:11)
[2017-09-28] MEDS: Nystatin CREAM* 15 GM TUBE TOPICAL SCH ×2 (08:48→20:10)
[2017-09-28] MEDS: Mometasone/Formoter 200/5 MDI INH SCH ×2 (08:55→20:41)
[2017-09-28 09:18] LABS: Hematocrit 34 % (42-52); Hemoglobin 10.7 g/dl (14.0-18.0); Mean Corpuscular HGB Conc 31 g/dl (31-36); Mean Corpuscular Hemoglobin 26 pg (27-31); Mean Corpuscular Volume 82 fL (80-94); Mean Platelet Volume 7.1 um3 (7.4-10.4); Platelet Count 555 10^3/ul (150-450); Red Blood Count 4.13 10^6/ul (4.0-5.4); Red Cell Distribution Width 17 % (10.5-15); White Blood Count 15.7 10^3/ul (3.5-10.8)
[2017-09-28 09:21] LABS: ABS Neutrophils 13.7 10^3/ul (1.5-7.7)
--- NOTE | 2017-09-28 09:21 | RAD ---
Indication: Fall, ankle swelling. Image sequences: Sagittal T1, STIR, coronal T1, STIR, axial T1 and STIR images of the left foot was obtained. Comparison is made with previous exam dated June 20, 2017. There is further disorganization of the hindfoot. There is now erosive and destructive changes of the anterior talus. Erosion of the posterior talonavicular joint is noted. Increased soft tissue density is noted surrounding the remainder of the tarsal bones. The scaphoid and the cuneiforms are also disorganized with increased edema. Progressive loculated fluid collections are noted in the posterior aspect of the foot extending medially and laterally which were not present previously. IMPRESSION:: PROGRESSIVE DISORGANIZATION AND DESTRUCTION OF THE HINDFOOT WITH PROGRESSIVE COLLAPSE OF THE TALOCALCANEAL JOINT. DESTRUCTIVE CHANGES ARE NOTED IN THE ANTERIOR CALCANEUS WELL THE TALUS WITH DISORGANIZATION OF THE CUNEIFORMS AND CUBOID. CONSISTENT WITH CHARCOT JOINT AND UNDERLYING OSTEOMYELITIS. THERE IS PROGRESSIVE FLUID COLLECTION SURROUNDING THE ANKLE JOINT INVOLVING THE MEDIAL ASPECT OF THE ANKLE JOINT EXTENDING POSTERIORLY AND LATERALLY SUSPICIOUS FOR ABSCESS COLLECTION.
[2017-09-28] MEDS ORDERED: Magnesium Sulfate IV* 3 GM in NS 0.9% 100 ML* 100 ML IVPB ONE (09:35)
--- NOTE | 2017-09-28 09:56 | PN ---
Subjective Date of Service: 09/28/17 Interval History: MRI concerning for abscess, charcot foot and OM CRP to 150. vanc started last night ID and ortho consulted this AM potential AC joint separation right side, no fx tearful, frustrated. Facility Security Officer consult placed. Na to 129. Afib on tele, rate controlled. Mg still low. Objective Active Medications: Acetaminophen (Tylenol Tab*) 325 mg PO Q6H PRN PRN Reason: PAIN Last Admin: 09/27/17 12:08 Dose: 325 mg Albuterol (Ventolin 2.5 Mg/3 Ml Neb.Christy*) 2.5 mg INH Q4H PRN PRN Reason: SOB/WHEEZING Allopurinol (Zyloprim Tab*) 600 mg PO DAILY [facility] Last Admin: 09/28/17 08:34 Dose: 600 mg Atorvastatin Calcium (Lipitor*) 40 mg PO DAILY [facility] Last Admin: 09/28/17 08:34 Dose: 40 mg Cholecalciferol (Vitamin D Tab*) 1,000 units PO DAILY [facility] Last Admin: 09/28/17 08:34 Dose: 1,000 units Guaifenesin (Mucinex*) 600 mg PO Q12H [facility] Last Admin: 09/28/17 06:18 Dose: Not Given Vancomycin HCl 1,000 mg/ (Sodium Chloride) 250 mls @ 166.667 mls/hr IVPB Q24H [facility] Magnesium Sulfate 3 gm/ Sodium (Chloride) 106 mls @ 53 mls/hr IVPB ONCE ONE Stop: 09/28/17 11:34 Insulin Glargine (Lantus(*)) 44 units SUBCUT BEDTIME [facility] Last Admin: 09/27/17 21:34 Dose: 44 units Insulin Human Lispro (Humalog*) 10 units SUBCUT TID PC [facility] Last Admin: 09/28/17 08:33 Dose: 10 units Levothyroxine Sodium (Synthroid Tab*) 200 mcg PO DAILY@0600 [facility] Last Admin: 09/28/17 06:03 Dose: 200 mcg Metoprolol Tartrate (Lopressor Tab*) 25 mg PO BID [facility] Last Admin: 09/28/17 08:34 Dose: 25 mg Mometasone Furoate/Formoterol Fumar (Dulera 200/5 Mdi*) 2 puff INH BID [facility] PRN Reason: Protocol Last Admin: 09/28/17 08:55 Dose: 2 puff Nystatin (Nystatin Cream*) 1 applic TOPICAL BID [facility] Last Admin: 09/28/17 08:48 Dose: Not Given Oxycodone HCl (Roxycodone Tab*) 10 mg PO Q4H PRN PRN Reason: PAIN - SEVERE Pharmacy Consult (Vancomycin Per Pharmacy*) 1 note FOLLOW UP .VANC PER PHARMACY [facility] Pharmacy Profile Note (Vancomycin Trough Check) 1 note FOLLOW UP 0730 ONE Stop: 09/29/17 07:31 Polyethylene Glycol/Electrolytes (Miralax*) 17 gm PO BID [facility] Last Admin: 09/28/17 08:43 Dose: 17 gm Rivaroxaban (Xarelto(*)) 20 mg PO DAILY [facility] Last Admin: 09/28/17 08:34 Dose: 20 mg Senna (Senokot Tab*) 1 tab PO BEDTIME PRN PRN Reason: CONSTIPATION Simethicone (Mylicon Tab*) 80 mg PO Q8H PRN PRN Reason: NAUSEA Spironolactone (Aldactone Tab*) 50 mg PO DAILY [facility] Last Admin: 09/28/17 08:34 Dose: 50 mg Tamsulosin HCl (Flomax Cap*) 0.4 mg PO DAILY [facility] Last Admin: 09/28/17 08:34 Dose: 0.4 mg Vital Signs - 8 hr 09/28/17 09/28/17 09/28/17 03:50 04:03 06:15 Temperature 98.2 F Pulse Rate 84 Respiratory 16 18 Rate Blood Pressure 123/71 (mmHg) O2 Sat by Pulse 98 99 Oximetry 09/28/17 09/28/17 09/28/17 07:17 08:47 09:01 Temperature 98.1 F Pulse Rate 82 67 Respiratory 18 22 Rate Blood Pressure 162/67 (mmHg) O2 Sat by Pulse 100 98 Oximetry 09/28/17 09:36 Temperature Pulse Rate Respiratory 22 Rate Blood Pressure (mmHg) O2 Sat by Pulse Oximetry Oxygen Devices in Use Now: Nasal Cannula Appearance: NAD, occasionally tearful Eyes: No Scleral Icterus, PERRLA Ears/Nose/Mouth/Throat: NL Teeth, Lips, Gums, Mucous Membranes Moist Neck: NL Appearance and Movements; NL JVP Respiratory: Symmetrical Chest Expansion and Respiratory Effort, Clear to Auscultation Cardiovascular: NL Sounds; No Murmurs; No JVD, - - irregularly irregular, no m/r /g. right chest wall with soft tissue mass. Abdominal: - - soft, distended. non tender. Extremities: No Edema - left ankle with erythema, warmth, swelling with induration, worse medially. , - Neurological: Alert and Oriented x 3, NL Sensation, NL Muscle Strength and Tone Result Diagrams: 09/28/17 08:54 09/28/17 08:54 Additional Lab and Data: Laboratory Results - last 24 hr 09/27/17 09/27/17 09/27/17 19:19 19:19 21:33 WBC 17.2 H RBC 4.01 Hgb 10.4 L Hct 33 L MCV 82 MCH 26 L MCHC 32 RDW 17 H Plt Count 552 H MPV 7.0 L Neut % (Auto) 86.6 H Lymph % (Auto) 3.5 L Zapata % (Auto) 7.9 H Eos % (Auto) 1.5 Baso % (Auto) 0.5 Absolute Neuts (auto) 14.9 H Absolute Lymphs (auto) 0.6 L Absolute Monos (auto) 1.4 H Absolute Eos (auto) 0.3 Absolute Basos (auto) 0.1 Absolute Nucleated RBC 0 Immature Gran % Neutrophils % Lymphocytes % Monocytes % Eosinophils % Basophils % Metamyelocytes % Myelocytes % Nucleated RBC % 0 Abs Neuts (Manual) Abs Lymphs (Manual) Abs Monocytes (Manual) Absolute Eos (Manual) Abs Basophils (Manual) Normal RBC Morphology Sodium Potassium Chloride Carbon Dioxide Anion Gap BUN Creatinine Est GFR ( Amer) Est GFR (Non-Af Amer) BUN/Creatinine Ratio Glucose POC Glucose (mg/dL) 222 H Uric Acid Calcium Magnesium C-Reactive Protein 151.32 H Urine Osmolality Ur Random Sodium 09/28/17 09/28/17 09/28/17 07:43 08:54 08:54 WBC 15.7 H RBC 4.13 Hgb 10.7 L Hct 34 L MCV 82 MCH 26 L MCHC 31 RDW 17 H Plt Count 555 H MPV 7.1 L Neut % (Auto) Not Reportable Lymph % (Auto) Not Reportable Zapata % (Auto) Not Reportable Eos % (Auto) Not Reportable Baso % (Auto) Not Reportable Absolute Neuts (auto) 13.7 H Absolute Lymphs (auto) 0.5 L Absolute Monos (auto) 1.2 H Absolute Eos (auto) 0.2 Absolute Basos (auto) 0.1 Absolute Nucleated RBC 0 Immature Gran % 2 Neutrophils % 86 H Lymphocytes % 4 L Monocytes % 7 Eosinophils % 0 Basophils % 1 Metamyelocytes % 1 Myelocytes % 1 Nucleated RBC % 0 Abs Neuts (Manual) 13.5 H Abs Lymphs (Manual) 0.6 L Abs Monocytes (Manual) 1.1 H Absolute Eos (Manual) 0 Abs Basophils (Manual) 0.2 Normal RBC Morphology Normal Sodium 129 L Potassium 4.2 Chloride 95 L Carbon Dioxide 27 Anion Gap 7 BUN 60 H Creatinine 1.04 Est GFR ( Amer) 96.4 Est GFR (Non-Af Amer) 75.0 BUN/Creatinine Ratio 57.7 H Glucose 179 H POC Glucose (mg/dL) 195 H Uric Acid 6.9 Calcium 9.7 Magnesium 1.7 L C-Reactive Protein Urine Osmolality Ur Random Sodium 09/28/17 09/28/17 09/28/17 12:08 12:08 12:08 WBC RBC Hgb Hct MCV MCH MCHC RDW Plt Count MPV Neut % (Auto) Lymph % (Auto) Zapata % (Auto) Eos % (Auto) Baso % (Auto) Absolute Neuts (auto) Absolute Lymphs (auto) Absolute Monos (auto) Absolute Eos (auto) Absolute Basos (auto) Absolute Nucleated RBC Immature Gran % Neutrophils % Lymphocytes % Monocytes % Eosinophils % Basophils % Metamyelocytes % Myelocytes % Nucleated RBC % Abs Neuts (Manual) Abs Lymphs (Manual) Abs Monocytes (Manual) Absolute Eos (Manual) Abs Basophils (Manual) Normal RBC Morphology Sodium Potassium Chloride Carbon Dioxide Anion Gap BUN Creatinine Est GFR ( Amer) Est GFR (Non-Af Amer) BUN/Creatinine Ratio Glucose POC Glucose (mg/dL) 192 H Uric Acid Calcium Magnesium C-Reactive Protein Urine Osmolality 384 Ur Random Sodium 37 09/28/17 17:43 WBC RBC Hgb Hct MCV MCH MCHC RDW Plt Count MPV Neut % (Auto) Lymph % (Auto) Zapata % (Auto) Eos % (Auto) Baso % (Auto) Absolute Neuts (auto) Absolute Lymphs (auto) Absolute Monos (auto) Absolute Eos (auto) Absolute Basos (auto) Absolute Nucleated RBC Immature Gran % Neutrophils % Lymphocytes % Monocytes % Eosinophils % Basophils % Metamyelocytes % Myelocytes % Nucleated RBC % Abs Neuts (Manual) Abs Lymphs (Manual) Abs Monocytes (Manual) Absolute Eos (Manual) Abs Basophils (Manual) Normal RBC Morphology Sodium Potassium Chloride Carbon Dioxide Anion Gap BUN Creatinine Est GFR ( Amer) Est GFR (Non-Af Amer) BUN/Creatinine Ratio Glucose POC Glucose (mg/dL) 185 H Uric Acid Calcium Magnesium C-Reactive Protein Urine Osmolality Ur Random Sodium Microbiology and Other Data: Microbiology 09/27/17 19:19 Blood Venous Aerobic Blood Culture - Preliminary 09/27/17 08:41 Nasal Nasal Screen MRSA (PCR)(JEAN CARLOS) - Final Mrsa Not Detected Assess/Plan/Problems-Billing Assessment: 51 yo male PMH diastolic CHF, morbid obesity, IDDM, Afib on Xarelto, MRSA bacteremia and left ankle abscess/OM/charcot foot s/p prolonged IV vanc. p/w fall, tachycardia and swollen left ankle. Continued bony destruction/abscess of left foot likely needing surgical managment/below knee amputation. - Patient Problems (1) Foot osteomyelitis, left Current Visit: No Status: Acute Code(s): M86.9 - OSTEOMYELITIS, UNSPECIFIED SNOMED Code(s): 2743062393550239 Comment: s/p at least 6 weeks vancomycin then doxy. (writtin for 30 days, says he finished about 2 weeks ago) appreciate Dr. Fierro and ortho recs. Likely will need BTKA. likely Sunday 10/01. holding Xarelto. s/p MRI (2) Hyponatremia Current Visit: Yes Status: Acute Code(s): E87.1 - HYPO-OSMOLALITY AND HYPONATREMIA SNOMED Code(s): 63441647 Comment: improved to 129. IVF stopped. Sanjiv 37, UOsm 384. Uric Acid 6.9 wnl. TSH 4.5 on 07/06/17. (3) Atrial fibrillation Current Visit: No Status: Acute Code(s): I48.91 - UNSPECIFIED ATRIAL FIBRILLATION SNOMED Code(s): 32539996 Comment: Continue metoprolol 25mg TID and xarelto. Tele 08/07 started in case of further episodes of "dizziness". ECG. (4) Chronic respiratory failure Current Visit: No Status: Acute Code(s): J96.10 - CHRONIC RESPIRATORY FAILURE, UNSP W HYPOXIA OR HYPERCAPNIA SNOMED Code(s): 69268088 Comment: Pt with chronic hypoxic respiratory failure secondary to COPD and obesity hypoventilation syndrome. Had severe pHTN 61 mm Hg on 07/24/17 but Pt has since lost 175lbs in last few months with aggrresive diuresis and dietary modification. Will order repeat ECHO in anticipation of below knee amputation. (5) Diabetes mellitus Current Visit: No Status: Acute Code(s): E11.9 - TYPE 2 DIABETES MELLITUS WITHOUT COMPLICATIONS SNOMED Code(s): 25255936 Comment: Lantus 44 qhs Lispro 02/13/10 (6) COPD (chronic obstructive pulmonary disease) Current Visit: No Status: Chronic Priority: Medium Code(s): J44.9 - CHRONIC OBSTRUCTIVE PULMONARY DISEASE, UNSPECIFIED SNOMED Code(s): 43866541 Comment: Stable; On 3 L but sat high 99s, will try to wean. Not bronchospastic. has lost 175 lbs. goal sat ~90-92% continue inhalers. Status and Disposition: medicine inpatient.
[2017-09-28 09:57] LABS: Uric Acid 6.9 mg/dL (4.4-7.6)
[2017-09-28 10:10] LABS: ABS Basophils 0.1 10^3/ul (0-0.2); ABS Eosinophils 0.2 10^3/ul (0-0.6); ABS Lymphocytes 0.5 10^3/ul (1.0-4.8); ABS Monocytes 1.2 10^3/ul (0-0.8); ABS Nucleated RBC 0 10^3/ul; Nucleated Red Blood Cells % 0
[2017-09-28 10:13] LABS: Monocytes % 7 % (0-7)
--- NOTE | 2017-09-28 11:04 | CONSULT ---
<Asia Blue - Last Filed: 09/28/17 11:12> Consult Consult: Infectious Disease Consult Note Date of Service: 09/28/17 Requesting Provider: Dr. Cervantes Reason for consult: left ankle swelling after fall HPI: 51 yo M with significant pmhx of Morbid obesity, VENTURA on CPAP, OHS on 3L home O2 , Afib on AC, D2M , Peripheral Vascular Disease, Charcot foot w/ Recurrent Foot Osteomyelitis with recent L.ankle osteomyelitis s/p doxycylince presents with 1 day of worsening left ankle swelling after a fall. Yesterday afternoon, patient had a fall at home and twisted his left ankle. The fall occurred on 09/27/17 in the late morning when he was trying to walk from his bedroom to the toilet using his walker. While he was standing up, he felt his legs shaking and felt "wobbly". He began to sweat, feel hot, mildly dyspnea , and subsequently fell down on his back, hitting his head, right shouder and twisting his left ankle. He denies chest pain, nausea or loss of consciousness. He denied decreased PO intake, dehydration leading up to fall. He does endorse worseng acid reflux the day prior but denies having fever, chills, night sweats in past week. 2 weeks ago he completed a course of doxycycline for L. ankle osteomyelitis. Post therapy completion, he states his left ankle had decreased swelling and pain and was looking better. He was in the process of schedling an outpatient ID clinic visit. He was compliant on the therapy. 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 Most recently was hospitalized in June 2017 with MRSA of left ankle. Post discharge that time, [facility] and was discharge in August. 14 point ROS is negative except as per HPI. Past Medical History: Morbid Obesity VENTURA on CPAP Obesity Hypoventilation Syndrome on 3 L home Oxygen Atrial Fibrillation on Anticoagulation D2M on insulin HLD CKD 3 HTN w/ diastolic dysfunction Peripheral Vascular Disease Hypothyroidism Gout Arthritis h/o DVT/ PE Charcot foot with h/o recurrent osteomyelitis ( Right and Left foot) Past Surgical History: R. 2nd toe amputation 2/2 osteomyelitis L. ankle wound debridement 2/2 osteomyelitis Home Medications: Acetaminophen TAB* [Tylenol TAB*] 325 mg PO Q6H PRN 07/24/17 [History Confirmed 09/27/17] Albuterol HFA INHALER* [Ventolin HFA Inhaler*] 1 puff INH Q4H PRN 07/24/17 [ History Confirmed 09/27/17] Allopurinol TAB* [Zyloprim 300 MG TAB*] 600 mg PO DAILY 07/24/17 [History Confirmed 09/27/17] Atorvastatin* [Lipitor 40 MG*] 40 mg PO DAILY 07/24/17 [History Confirmed ] Budesonide/Formote 160/4.5(NF) [Symbicort 160/4.5 (NF)] 2 puff INH BID 07/24/17 [History Confirmed 09/27/17] Cholecalciferol TAB* [Vitamin D TAB*] 1,000 unit PO DAILY 07/24/17 [History Confirmed 09/27/17] Fluticasone NASAL SPRAY 50MCG* [Flonase NASAL SPRAY 50MCG*] 2 spray BOTH NARES DAILY PRN 07/24/17 [History Confirmed 09/27/17] Hemorrhoidal OINT* [Preparation H*] 1 applic ND Q8H PRN 07/24/17 [History Confirmed 09/27/17] Insulin LISPRO* [HumaLOG*] 10 units SUBCUT TID PC 07/24/17 [History Confirmed ] L.acidoph,Paracasei, B.lactis [Probiotic] 1 each PO DAILY 07/24/17 [History Confirmed 09/27/17] Levothyroxine TAB* [Synthroid TAB*] 200 mcg PO DAILY 07/24/17 [History Confirmed 09/27/17] Metoprolol Tartrate TAB* [Lopressor TAB*] 25 mg PO BID 07/24/17 [History Confirmed 09/27/17] Nystatin CREAM* [Nystatin Cream*] 1 applic TOPICAL BID 07/24/17 [History Confirmed 09/27/17] Polyethylene Glycol 3350* [Miralax*] 17 gm PO BID 07/24/17 [History Confirmed ] Rivaroxaban TAB(*) [Xarelto 20 mg] 20 mg PO DAILY 07/24/17 [History Confirmed ] Senna TAB* [Senokot TAB*] 1 tab PO BEDTIME PRN 07/24/17 [History Confirmed 09/27] Simethicone TAB* [Mylicon TAB*] 80 mg PO Q8H PRN 07/24/17 [History Confirmed ] Sodium Chloride [[place] Saline] 0.65 % BOTH NARES DAILY PRN 07/24/17 [History Confirmed 09/27/17] Spironolactone TAB* [Aldactone TAB 25 MG*] 50 mg PO DAILY 07/24/17 [History Confirmed 09/27/17] guaiFENesin ER TAB [Mucinex*] 600 mg PO Q12H 07/24/17 [History Confirmed ] oxyCODONE TAB* [Roxycodone TAB 5 mg*] 5 mg PO Q4H PRN 07/24/17 [History Confirmed 09/27/17] Albuterol 2.5MG/3ML (0.083%)* [Ventolin 2.5 MG/3 ML NEB.RA*] 2.5 mg INH Q4H PRN neb.soln 08/08/17 [Rx Confirmed 09/27/17] Insulin GLARGINE(*) [Lantus(*)] 44 units SUBCUT BEDTIME #0 08/08/17 [Rx Confirmed 09/27/17] Tamsulosin CAP* [Flomax CAP*] 0.4 mg PO DAILY cap 08/08/17 [Rx Confirmed ] Torsemide TAB* [Demadex 20 MG*] 40 mg PO DAILY tab 08/08/17 [Rx Confirmed 09/27] Metolazone 5 mg PO DAILY 09/27/17 [History Confirmed 09/27/17] Inpatient Medications: Acetaminophen (Tylenol Tab*) 325 mg PO Q6H PRN PRN Reason: PAIN Last Admin: 09/27/17 12:08 Dose: 325 mg Albuterol (Ventolin 2.5 Mg/3 Ml Neb.Ra*) 2.5 mg INH Q4H PRN PRN Reason: SOB/WHEEZING Allopurinol (Zyloprim Tab*) 600 mg PO DAILY [facility] Last Admin: 09/28/17 08:34 Dose: 600 mg Atorvastatin Calcium (Lipitor*) 40 mg PO DAILY [facility] Last Admin: 09/28/17 08:34 Dose: 40 mg Cholecalciferol (Vitamin D Tab*) 1,000 units PO DAILY [facility] Last Admin: 09/28/17 08:34 Dose: 1,000 units Guaifenesin (Mucinex*) 600 mg PO Q12H [facility] Last Admin: 09/28/17 06:18 Dose: Not Given Vancomycin HCl 1,000 mg/ (Sodium Chloride) 250 mls @ 166.667 mls/hr IVPB Q24H [facility] Magnesium Sulfate 3 gm/ Sodium (Chloride) 106 mls @ 53 mls/hr IVPB ONCE ONE Stop: 09/28/17 11:34 Insulin Glargine (Lantus(*)) 44 units SUBCUT BEDTIME [facility] Last Admin: 09/27/17 21:34 Dose: 44 units Insulin Human Lispro (Humalog*) 10 units SUBCUT TID PC [facility] Last Admin: 09/28/17 08:33 Dose: 10 units Levothyroxine Sodium (Synthroid Tab*) 200 mcg PO DAILY@0600 [facility] Last Admin: 09/28/17 06:03 Dose: 200 mcg Metoprolol Tartrate (Lopressor Tab*) 25 mg PO BID [facility] Last Admin: 09/28/17 08:34 Dose: 25 mg Mometasone Furoate/Formoterol Fumar (Dulera 200/5 Mdi*) 2 puff INH BID [facility] PRN Reason: Protocol Last Admin: 09/28/17 08:55 Dose: 2 puff Nystatin (Nystatin Cream*) 1 applic TOPICAL BID [facility] Last Admin: 09/28/17 08:48 Dose: Not Given Oxycodone HCl (Roxycodone Tab*) 10 mg PO Q4H PRN PRN Reason: PAIN - SEVERE Pharmacy Consult (Vancomycin Per Pharmacy*) 1 note FOLLOW UP .VANC PER PHARMACY [facility] Pharmacy Profile Note (Vancomycin Trough Check) 1 note FOLLOW UP 0730 ONE Stop: 09/29/17 07:31 Polyethylene Glycol/Electrolytes (Miralax*) 17 gm PO BID [facility] Last Admin: 09/28/17 08:43 Dose: 17 gm Rivaroxaban (Xarelto(*)) 20 mg PO DAILY [facility] Last Admin: 09/28/17 08:34 Dose: 20 mg Senna (Senokot Tab*) 1 tab PO BEDTIME PRN PRN Reason: CONSTIPATION Simethicone (Mylicon Tab*) 80 mg PO Q8H PRN PRN Reason: NAUSEA Spironolactone (Aldactone Tab*) 50 mg PO DAILY [facility] Last Admin: 09/28/17 08:34 Dose: 50 mg Tamsulosin HCl (Flomax Cap*) 0.4 mg PO DAILY [facility] Last Admin: 09/28/17 08:34 Dose: 0.4 mg Allergies: Tigecycline Family History: Mother alive, age 76, has fibromyalgia Father, alive, 70s, history of [place], D2M Sister, alive, D2M Social history: with , has 1 daughter walks with walker dependent on 3 L home oxygen former smoker quit 15 years ago, smoked cigars and ~1/2 pack cigarettes for 10 years denies etoh denies illicit drug use denies prescription drug abuse Vitals: Vital Signs - On Arrival Temp Pulse Resp BP Pulse Ox 36.6 C 97 20 127/83 97 09/27/17 01:51 09/27/17 01:51 09/27/17 01:51 09/27/17 01:51 09/27/17 01:51 Vital Signs - Most Recent Temp Pulse Resp BP Pulse Ox 36.7 C 67 22 162/67 98 09/28/17 07:17 09/28/17 09:01 09/28/17 09:36 09/28/17 07:17 09/28/17 09:01 Physical Exam: General: morbidly obese gentleman laying supine in bed, in nad HEENT : peerl, clear sclera, moist oral mucosa, clear oropharynx without erythema or exudates Neck: unable to visual JVD given body habitus Heart: s1s2 audible, no g/m/r Lungs: ctab no w/r/r Abdomen: obese, RLQ hernia soft/non-tender/non reducible, normoactive bs, unable to appreciate organomegaly 2/2 body habitus Musculoskeletal: R shoulder tender to palpation over acromium Extremities: hyperpigmentation of b/l shins on legs with dry scaly skin; R foot with 2nd digit amputation; Left ankle with circumfrential edema, erythema and tenderness; Left lateral malleolus with black dime sized eschar/ and fluctuance ; L. heel with pin sized black eschar with edema and fluctulance. Neuro: a& o x3, able to move all 4 extremities, normal sensation throughout, no focal neuro deficits Psych: mildly tearful, denied SI/HI Labs: Laboratory Last Values WBC 15.7 10^3/ul (3.5-10.8) H 09/28/17 08:54 RBC 4.13 10^6/ul (4.0-5.4) 09/28/17 08:54 Hgb 10.7 g/dl (14.0-18.0) L 09/28/17 08:54 Hct 34 % (42-52) L 09/28/17 08:54 MCV 82 fL (80-94) 09/28/17 08:54 MCH 26 pg (27-31) L 09/28/17 08:54 MCHC 31 g/dl (31-36) 09/28/17 08:54 RDW 17 % (10.5-15) H 09/28/17 08:54 Plt Count 555 10^3/ul (150-450) H 09/28/17 08:54 MPV 7.1 um3 (7.4-10.4) L 09/28/17 08:54 Neut % (Auto) Not Reportable 09/28/17 08:54 Lymph % (Auto) Not Reportable 09/28/17 08:54 [place] % (Auto) Not Reportable 09/28/17 08:54 Eos % (Auto) Not Reportable 09/28/17 08:54 Baso % (Auto) Not Reportable 09/28/17 08:54 Absolute Neuts (auto) 13.7 10^3/ul (1.5-7.7) H 09/28/17 08:54 Absolute Lymphs (auto) 0.5 10^3/ul (1.0-4.8) L 09/28/17 08:54 Absolute Monos (auto) 1.2 10^3/ul (0-0.8) H 09/28/17 08:54 Absolute Eos (auto) 0.2 10^3/ul (0-0.6) 09/28/17 08:54 Absolute Basos (auto) 0.1 10^3/ul (0-0.2) 09/28/17 08:54 Absolute Nucleated RBC 0 10^3/ul 09/28/17 08:54 Immature Gran % 2 % (0-9) 09/28/17 08:54 Neutrophils % 86 % (38-83) H 09/28/17 08:54 Lymphocytes % 4 % (25-47) L 09/28/17 08:54 Monocytes % 7 % (0-7) 09/28/17 08:54 Eosinophils % 0 % (0-6) 09/28/17 08:54 Basophils % 1 % (0-2) 09/28/17 08:54 Metamyelocytes % 1 % (0-2) 09/28/17 08:54 Myelocytes % 1 % (0-1) 09/28/17 08:54 Nucleated RBC % 0 09/28/17 08:54 Abs Neuts (Manual) 13.5 10^3/ul (1.5-7.7) H 09/28/17 08:54 Abs Lymphs (Manual) 0.6 10^3/ul (1.0-4.8) L 09/28/17 08:54 Abs Monocytes (Manual) 1.1 10^3/ul (0-0.8) H 09/28/17 08:54 Absolute Eos (Manual) 0 10^3/ul (0-0.6) 09/28/17 08:54 Abs Basophils (Manual) 0.2 10^3/ul (0-0.2) 09/28/17 08:54 Normal RBC Morphology Normal (Normal) 09/28/17 08:54 Sodium 129 mmol/L (139-145) L 09/28/17 08:54 Potassium 4.2 mmol/L (3.5-5.0) 09/28/17 08:54 Chloride 95 mmol/L (101-111) L 09/28/17 08:54 Carbon Dioxide 27 mmol/L (22-32) 09/28/17 08:54 Anion Gap 7 mmol/L (2-11) 09/28/17 08:54 BUN 60 mg/dL (6-24) H 09/28/17 08:54 Creatinine 1.04 mg/dL (0.67-1.17) 09/28/17 08:54 Est GFR ( Amer) 96.4 (>60) 09/28/17 08:54 Est GFR (Non-Af Amer) 75.0 (>60) 09/28/17 08:54 BUN/Creatinine Ratio 57.7 (8-20) H 09/28/17 08:54 Glucose 179 mg/dL (70-100) H 09/28/17 08:54 POC Glucose (mg/dL) 195 mg/dL (70-100) H 09/28/17 07:43 Uric Acid 6.9 mg/dL (4.4-7.6) 09/28/17 08:54 Calcium 9.7 mg/dL (8.6-10.3) 09/28/17 08:54 Magnesium 1.7 mg/dL (1.9-2.7) L 09/28/17 08:54 Total Bilirubin 0.60 mg/dL (0.2-1.0) 09/27/17 04:47 AST 50 U/L (13-39) H 09/27/17 04:47 ALT 78 U/L (7-52) H 09/27/17 04:47 Alkaline Phosphatase 359 U/L (34-104) H 09/27/17 04:47 C-Reactive Protein 151.32 mg/L (< 5.00) H 09/27/17 19:19 Total Protein 7.0 g/dL (6.4-8.9) 09/27/17 04:47 Albumin 2.7 g/dL (3.2-5.2) L 09/27/17 04:47 Globulin 4.3 g/dL (2-4) H 09/27/17 04:47 Albumin/Globulin Ratio 0.6 (1-3) L 09/27/17 04:47 Urine Color Yellow 09/27/17 04:47 Urine Appearance Clear 09/27/17 04:47 Urine pH 5.0 (5-9) 09/27/17 04:47 Ur Specific [place] 1.010 (1.010-1.030) 09/27/17 04:47 Urine Protein 1+(30 mg/dl) (Negative) A 09/27/17 04:47 Urine Ketones Negative (Negative) 09/27/17 04:47 Urine Blood 1+ (Negative) A 09/27/17 04:47 Urine Nitrate Negative (Negative) 09/27/17 04:47 Urine Bilirubin Negative (Negative) 09/27/17 04:47 Urine Urobilinogen Negative (Negative) 09/27/17 04:47 Ur Leukocyte Esterase Negative (Negative) 09/27/17 04:47 Urine WBC (Auto) Absent (Absent) 09/27/17 04:47 Urine RBC (Auto) Trace(0-2/hpf) (Absent) 09/27/17 04:47 Urine Bacteria Absent (Absent) 09/27/17 04:47 Urine Glucose Negative (Negative) 09/27/17 04:47 Microbiology: pending historically: 06/21/17 Skin and soft tissue of left ankle: MRSA + Imagin09/27/17 MRI of Left Ankle/Foot: Progressive disorganization and destruction of the hindfoot with progressive collapse of talocalcaneal joint. Destructive changes of anterior calcaneus, talus w/disorganization of cunioforms and cuboid. Consistent with charcot joint and oseomyelitis. Progressive fluid collection surrounding the ankle joint involving the medial aspect of the ankle joint extending posteriorily and laterally concerning for abcess. Impression: 51 yo M with significant pmhx of Morbid obesity, VENTURA on CPAP, OHS on 3L home O2 , Afib on AC, D2M , Peripheral Vascular Disease, Charcot foot w/ Recurrent Foot Osteomyelitis with recent L.ankle osteomyelitis s/p doxycyline presents with 1 day of worsening left ankle swelling after a fall. Exam with notable for new fluctuance of L. heel and lateral malleolus and cirumfrential ankle edema, tenderness, erythema. MRI with evidence of necrotic bone of the left mid foot with soft tissue collections/?abcess. Picture concerning for recurrence of chronic osteomyelitis w/extension of infection into soft tissue. Plan: -orthopedic surgery evaluation, may need surgical intervention given extensive nature of necrotic bone and soft tissue collection on MRI -IV Vancomycin -keep left ankle elevated Examined and discussed with attending Dr. Willard Fierro Attending cosign pending Infectious Disease Consult Asia Blue MD, PGY2 [facility] Resident <Vadim CRUMP,Mann Lorenzo - Last Filed: 09/28/17 11:16> Consult Consult: Seen, examined, and discussed with Dr Blue, I agree with her full note regarding Mr Anderson's chronic osteomyelitis, abscess and myositis.
--- NOTE | 2017-09-28 15:52 | CONSULT ---
Consult Consult: Consult Note- Orthopedics Date of Service: 09/28/17 Requesting Provider: Dr. Cervantes Reason for consult: left ankle swelling, osteomyelitis HPI: 51 yo M well known to the orthopedic group for Charcot foot with Recurrent Foot Osteomyelitis with recent L. ankle osteomyelitis s/p doxycycline (completed ~ 2 weeks ago) admitted for worsening ankle pain s/p fall 09/27. On 09/27/17 the patient fell while walking to the toilet due to increased dizziness, lightheadness. His fall increased his ankle pain, however the patient states he had been having pain in the back of his ankle particularly with weight bearing for the last ~ 1 week. He was taken to the ER and found to have an elevated WBC to 19.5, swollen L ankle, and elevated CRP to 151. He was admitted and started on vancomycin. MRI was positive for osteomyelitis and Charcot foot. Past Medical History: Morbid Obesity VENTURA on CPAP Obesity Hypoventilation Syndrome on 3 L home Oxygen Atrial Fibrillation on Anticoagulation- Xarelto D2M on insulin- poorly controlled HLD CKD 3 HTN w/ diastolic dysfunction Peripheral Vascular Disease Hypothyroidism Gout Arthritis h/o DVT/ PE Charcot foot with h/o recurrent osteomyelitis ( Right and Left foot) Past Surgical History: 06/21- I&D L hindfoot abscess - Toni 06/25- I&D with biopsy talar neck - Toni 04/19- L ankle arthotomy with I&D abscess - [facility] Inpatient Medications: Acetaminophen (Tylenol Tab*) 325 mg PO Q6H PRN PRN Reason: PAIN Last Admin: 09/27/17 12:08 Dose: 325 mg Albuterol (Ventolin 2.5 Mg/3 Ml Neb.Christy*) 2.5 mg INH Q4H PRN PRN Reason: SOB/WHEEZING Allopurinol (Zyloprim Tab*) 600 mg PO DAILY [facility] Last Admin: 09/28/17 08:34 Dose: 600 mg Atorvastatin Calcium (Lipitor*) 40 mg PO DAILY [facility] Last Admin: 09/28/17 08:34 Dose: 40 mg Cholecalciferol (Vitamin D Tab*) 1,000 units PO DAILY [facility] Last Admin: 09/28/17 08:34 Dose: 1,000 units Guaifenesin (Mucinex*) 600 mg PO Q12H [facility] Last Admin: 09/28/17 06:18 Dose: Not Given Vancomycin HCl 1,000 mg/ (Sodium Chloride) 250 mls @ 166.667 mls/hr IVPB Q24H [facility] Insulin Glargine (Lantus(*)) 44 units SUBCUT BEDTIME [facility] Last Admin: 09/27/17 21:34 Dose: 44 units Insulin Human Lispro (Humalog*) 10 units SUBCUT TID PC [facility] Last Admin: 09/28/17 12:50 Dose: 10 units Levothyroxine Sodium (Synthroid Tab*) 200 mcg PO DAILY@0600 [facility] Last Admin: 09/28/17 06:03 Dose: 200 mcg Metoprolol Tartrate (Lopressor Tab*) 25 mg PO BID [facility] Last Admin: 09/28/17 08:34 Dose: 25 mg Mometasone Furoate/Formoterol Fumar (Dulera 200/5 Mdi*) 2 puff INH BID [facility] PRN Reason: Protocol Last Admin: 09/28/17 08:55 Dose: 2 puff Nystatin (Nystatin Cream*) 1 applic TOPICAL BID [facility] Last Admin: 09/28/17 08:48 Dose: Not Given Oxycodone HCl (Roxycodone Tab*) 10 mg PO Q4H PRN PRN Reason: PAIN - SEVERE Last Admin: 09/28/17 15:49 Dose: 10 mg Pharmacy Consult (Vancomycin Per Pharmacy*) 1 note FOLLOW UP .VANC PER PHARMACY [facility] Pharmacy Profile Note (Vancomycin Trough Check) 1 note FOLLOW UP 0730 ONE Stop: 09/29/17 07:31 Polyethylene Glycol/Electrolytes (Miralax*) 17 gm PO BID [facility] Last Admin: 09/28/17 08:43 Dose: 17 gm Rivaroxaban (Xarelto(*)) 20 mg PO DAILY [facility] Last Admin: 09/28/17 08:34 Dose: 20 mg Senna (Senokot Tab*) 1 tab PO BEDTIME PRN PRN Reason: CONSTIPATION Simethicone (Mylicon Tab*) 80 mg PO Q8H PRN PRN Reason: NAUSEA Spironolactone (Aldactone Tab*) 50 mg PO DAILY [facility] Last Admin: 09/28/17 08:34 Dose: 50 mg Tamsulosin HCl (Flomax Cap*) 0.4 mg PO DAILY [facility] Last Admin: 09/28/17 08:34 Dose: 0.4 mg Allergies: Tigecycline Family History: Mother alive, age 76, has fibromyalgia Father, alive, 70s, history of [place], D2M Sister, alive, D2M Social history: with , has 1 daughter walks with walker dependent on 3 L home oxygen former smoker quit 15 years ago, smoked cigars and ~1/2 pack cigarettes for 10 years denies etoh denies illicit drug use denies prescription drug abuse Vitals: Vital Signs - On Arrival Temp Pulse Resp BP Pulse Ox 36.6 C 97 20 127/83 97 09/27/17 01:51 09/27/17 01:51 09/27/17 01:51 09/27/17 01:51 09/27/17 01:51 Vital Signs - Most Recent Temp Pulse Resp BP Pulse Ox 36.7 C 67 22 162/67 98 09/28/17 07:17 09/28/17 09:01 09/28/17 09:36 09/28/17 07:17 09/28/17 09:01 Physical Exam: General: Obese male appearing stated age, NAD AO, resting comfortably HEENT : NCAT MSK: LLE- + severe edema with erythema noted over b/l malleous, tender to palpation, small superfical abrasion noted over lateral mal without drainage able to be expressed or on gauze, tender with PROM, limited. No odor. Hyperpigmentation to b/l LE with nodules noted b/l. R shoulder tender to palpation over acromium Neuro: decreased sensation starting from L midfoot down to toes. Vascular- DP 1+ L foot, unable to appreciate PT due to edema. Microbiology: Blood cultures pending, no drainage from wound expressed Imagin09/27/17 MRI of Left Ankle/Foot: Progressive disorganization and destruction of the hindfoot with progressive collapse of talocalcaneal joint. Destructive changes of anterior calcaneus, talus w/disorganization of cunioforms and cuboid. Consistent with charcot joint and oseomyelitis. Progressive fluid collection surrounding the ankle joint involving the medial aspect of the ankle joint extending posteriorily and laterally concerning for abcess. Impression: - Left foot- Charcot Foot with osteomyelitis, fluid collection, collapse of talcalcaneal joint. Plan: - ID evaluation- completed docycyline ~ 2 weeks ago, current on vancomycin, WBC decreasing - Possible surgery/ BKA on Sunday- patient is on Xarelto for a fib, will hold and cover with heparin to be held morning of procedure. - NPO p MN on Sunday-Sunday - Ortho will continue to follow over the weekend - APpreciate hospitalists, ID care - Continue to keep foot elevated, NWB. - Toni Cantrell to follow patient Vital Signs Temp Pulse Resp BP Pulse Ox 98.6 F 85 20 144/67 100 09/28/17 15:34 09/28/17 15:34 09/28/17 15:49 09/28/17 15:34 09/28/17 15:34 Laboratory Results - last 24 hr 09/27/17 09/27/17 09/27/17 15:29 16:42 19:19 WBC RBC Hgb Hct MCV MCH MCHC RDW Plt Count MPV Neut % (Auto) Lymph % (Auto) [place] % (Auto) Eos % (Auto) Baso % (Auto) Absolute Neuts (auto) Absolute Lymphs (auto) Absolute Monos (auto) Absolute Eos (auto) Absolute Basos (auto) Absolute Nucleated RBC Immature Gran % Neutrophils % Lymphocytes % Monocytes % Eosinophils % Basophils % Metamyelocytes % Myelocytes % Nucleated RBC % Abs Neuts (Manual) Abs Lymphs (Manual) Abs Monocytes (Manual) Absolute Eos (Manual) Abs Basophils (Manual) Normal RBC Morphology Sodium 127 L Potassium 4.4 Chloride 93 L Carbon Dioxide 27 Anion Gap 7 BUN 65 H Creatinine 1.13 Est GFR ( Amer) 87.6 Est GFR (Non-Af Amer) 68.1 BUN/Creatinine Ratio 57.5 H Glucose 156 H POC Glucose (mg/dL) 189 H Uric Acid Calcium 9.9 Magnesium 1.7 L C-Reactive Protein 151.32 H Urine Osmolality Ur Random Sodium 09/27/17 09/27/17 09/28/17 19:19 21:33 07:43 WBC 17.2 H RBC 4.01 Hgb 10.4 L Hct 33 L MCV 82 MCH 26 L MCHC 32 RDW 17 H Plt Count 552 H MPV 7.0 L Neut % (Auto) 86.6 H Lymph % (Auto) 3.5 L [place] % (Auto) 7.9 H Eos % (Auto) 1.5 Baso % (Auto) 0.5 Absolute Neuts (auto) 14.9 H Absolute Lymphs (auto) 0.6 L Absolute Monos (auto) 1.4 H Absolute Eos (auto) 0.3 Absolute Basos (auto) 0.1 Absolute Nucleated RBC 0 Immature Gran % Neutrophils % Lymphocytes % Monocytes % Eosinophils % Basophils % Metamyelocytes % Myelocytes % Nucleated RBC % 0 Abs Neuts (Manual) Abs Lymphs (Manual) Abs Monocytes (Manual) Absolute Eos (Manual) Abs Basophils (Manual) Normal RBC Morphology Sodium Potassium Chloride Carbon Dioxide Anion Gap BUN Creatinine Est GFR ( Amer) Est GFR (Non-Af Amer) BUN/Creatinine Ratio Glucose POC Glucose (mg/dL) 222 H 195 H Uric Acid Calcium Magnesium C-Reactive Protein Urine Osmolality Ur Random Sodium 09/28/17 09/28/17 09/28/17 08:54 08:54 12:08 WBC 15.7 H RBC 4.13 Hgb 10.7 L Hct 34 L MCV 82 MCH 26 L MCHC 31 RDW 17 H Plt Count 555 H MPV 7.1 L Neut % (Auto) Not Reportable Lymph % (Auto) Not Reportable [place] % (Auto) Not Reportable Eos % (Auto) Not Reportable Baso % (Auto) Not Reportable Absolute Neuts (auto) 13.7 H Absolute Lymphs (auto) 0.5 L Absolute Monos (auto) 1.2 H Absolute Eos (auto) 0.2 Absolute Basos (auto) 0.1 Absolute Nucleated RBC 0 Immature Gran % 2 Neutrophils % 86 H Lymphocytes % 4 L Monocytes % 7 Eosinophils % 0 Basophils % 1 Metamyelocytes % 1 Myelocytes % 1 Nucleated RBC % 0 Abs Neuts (Manual) 13.5 H Abs Lymphs (Manual) 0.6 L Abs Monocytes (Manual) 1.1 H Absolute Eos (Manual) 0 Abs Basophils (Manual) 0.2 Normal RBC Morphology Normal Sodium 129 L Potassium 4.2 Chloride 95 L Carbon Dioxide 27 Anion Gap 7 BUN 60 H Creatinine 1.04 Est GFR ( Amer) 96.4 Est GFR (Non-Af Amer) 75.0 BUN/Creatinine Ratio 57.7 H Glucose 179 H POC Glucose (mg/dL) Uric Acid 6.9 Calcium 9.7 Magnesium 1.7 L C-Reactive Protein Urine Osmolality 384 Ur Random Sodium 09/28/17 09/28/17 12:08 12:08 WBC RBC Hgb Hct MCV MCH MCHC RDW Plt Count MPV Neut % (Auto) Lymph % (Auto) [place] % (Auto) Eos % (Auto) Baso % (Auto) Absolute Neuts (auto) Absolute Lymphs (auto) Absolute Monos (auto) Absolute Eos (auto) Absolute Basos (auto) Absolute Nucleated RBC Immature Gran % Neutrophils % Lymphocytes % Monocytes % Eosinophils % Basophils % Metamyelocytes % Myelocytes % Nucleated RBC % Abs Neuts (Manual) Abs Lymphs (Manual) Abs Monocytes (Manual) Absolute Eos (Manual) Abs Basophils (Manual) Normal RBC Morphology Sodium Potassium Chloride Carbon Dioxide Anion Gap BUN Creatinine Est GFR ( Amer) Est GFR (Non-Af Amer) BUN/Creatinine Ratio Glucose POC Glucose (mg/dL) 192 H Uric Acid Calcium Magnesium C-Reactive Protein Urine Osmolality Ur Random Sodium 37
[2017-09-28] MEDS: Insulin GLARGINE(*) 1 UNITS UNIT SUBCUT SCH (20:05)
[2017-09-29] MEDS: guaiFENesin ER TAB 600 MG PO SCH ×2 (05:07→16:28)
[2017-09-29] MEDS: Levothyroxine TAB* 100 MCG TAB PO SCH (05:08)
[2017-09-29] MEDS: oxyCODONE TAB* 5 MG TAB PO PRN ×4 (05:08→20:13)
[2017-09-29] MEDS ORDERED: Vancomycin Trough Check NOTE FOLLOW UP ONE (07:30)
[2017-09-29] MEDS: Mometasone/Formoter 200/5 MDI INH SCH ×2 (08:16→20:54)
[2017-09-29 08:52] LABS: Hematocrit 34 % (42-52); Hemoglobin 10.8 g/dl (14.0-18.0); Mean Corpuscular HGB Conc 32 g/dl (31-36); Mean Corpuscular Hemoglobin 26 pg (27-31); Mean Corpuscular Volume 82 fL (80-94); Mean Platelet Volume 7.1 um3 (7.4-10.4); Platelet Count 582 10^3/ul (150-450); Red Blood Count 4.14 10^6/ul (4.0-5.4); Red Cell Distribution Width 17 % (10.5-15); White Blood Count 18.9 10^3/ul (3.5-10.8)
[2017-09-29] MEDS: Metoprolol Tartrate TAB* 25 MG PO SCH ×2 (08:58→20:16)
[2017-09-29] MEDS: Polyethylene Glycol 3350* 17 GM PACKET PO SCH ×2 (08:58→20:15)
[2017-09-29] MEDS: Spironolactone TAB* 25 MG PO SCH (08:59)
[2017-09-29] MEDS: Cholecalciferol TAB* 1000 UNITS PO SCH (08:59)
[2017-09-29] MEDS: Tamsulosin CAP* 0.4 MG PO SCH (08:59)
[2017-09-29] MEDS: Allopurinol TAB* 300 MG PO SCH (08:59)
[2017-09-29] MEDS: Insulin LISPRO* 1 UNITS UNIT SUBCUT SCH ×3 (08:59→17:24)
[2017-09-29] MEDS: Atorvastatin* 40 MG TAB PO SCH (08:59)
[2017-09-29] MEDS: Heparin VIAL(*) 5000 UNITS/ML VIAL (FIVE THOUSAND) SUBCUT SCH ×3 (08:59→20:14)
[2017-09-29] MEDS: Nystatin CREAM* 15 GM TUBE TOPICAL SCH ×3 (09:03→20:15)
[2017-09-29 09:06] LABS: EGFR Non-African American 71.8 (>60)
[2017-09-29 09:34] LABS: ABS Basophils 0.2 10^3/ul (0-0.2); ABS Eosinophils 0.7 10^3/ul (0-0.6); ABS Lymphocytes 0.7 10^3/ul (1.0-4.8); ABS Monocytes 1.3 10^3/ul (0-0.8)
[2017-09-29 09:36] LABS: Monocytes % 11 % (0-7)
[2017-09-29] MEDS: Vancomycin(*) 1,000 MG in NS 0.9% 250 ML* 250 ML IVPB SCH (11:17)
--- NOTE | 2017-09-29 12:05 | PN ---
Subjective Date of Service: 09/29/17 Interval History: 1/4 vials with staph epi, 1/4 with MRSA. Pt occasional tearful with nursing. Na to 130 WBC to 18.9 Continued left heel and right shoulder/clavicle pain. Repeat BCxs drawn. Objective Active Medications: Acetaminophen (Tylenol Tab*) 325 mg PO Q6H PRN PRN Reason: PAIN Last Admin: 09/27/17 12:08 Dose: 325 mg Albuterol (Ventolin 2.5 Mg/3 Ml Neb.Christy*) 2.5 mg INH Q4H PRN PRN Reason: SOB/WHEEZING Allopurinol (Zyloprim Tab*) 600 mg PO DAILY [facility] Last Admin: 09/29/17 08:59 Dose: 600 mg Atorvastatin Calcium (Lipitor*) 40 mg PO DAILY [facility] Last Admin: 09/29/17 08:59 Dose: 40 mg Cholecalciferol (Vitamin D Tab*) 1,000 units PO DAILY [facility] Last Admin: 09/29/17 08:59 Dose: 1,000 units Famotidine (Pepcid Iv*) 20 mg IV ONCE ONE Stop: 10/01/17 06:01 Guaifenesin (Mucinex*) 600 mg PO Q12H [facility] Last Admin: 09/29/17 05:07 Dose: Not Given Heparin Sodium (Porcine) (Heparin Vial(*)) 5,000 units SUBCUT Q8HR [facility] Stop: 09/30/17 23:59 Last Admin: 09/29/17 08:59 Dose: 5,000 units Vancomycin HCl 1,000 mg/ (Sodium Chloride) 250 mls @ 166.667 mls/hr IVPB Q24H [facility] Last Admin: 09/29/17 11:17 Dose: 166.667 mls/hr Insulin Glargine (Lantus(*)) 44 units SUBCUT BEDTIME [facility] Last Admin: 09/28/17 20:05 Dose: 44 units Insulin Human Lispro (Humalog*) 10 units SUBCUT TID PC [facility] Last Admin: 09/29/17 08:59 Dose: 10 units Levothyroxine Sodium (Synthroid Tab*) 200 mcg PO DAILY@0600 [facility] Last Admin: 09/29/17 05:08 Dose: 200 mcg Metoprolol Tartrate (Lopressor Tab*) 25 mg PO BID [facility] Last Admin: 09/29/17 08:58 Dose: 25 mg Mometasone Furoate/Formoterol Fumar (Dulera 200/5 Mdi*) 2 puff INH BID [facility] PRN Reason: Protocol Last Admin: 09/29/17 08:16 Dose: 2 puff Nystatin (Nystatin Cream*) 1 applic TOPICAL BID [facility] Last Admin: 09/29/17 11:24 Dose: 1 top.gel Oxycodone HCl (Roxycodone Tab*) 10 mg PO Q4H PRN PRN Reason: PAIN - SEVERE Last Admin: 09/29/17 09:42 Dose: 10 mg Pharmacy Consult (Vancomycin Per Pharmacy*) 1 note FOLLOW UP .VANC PER PHARMACY [facility] Polyethylene Glycol/Electrolytes (Miralax*) 17 gm PO BID [facility] Last Admin: 09/29/17 08:58 Dose: 17 gm Senna (Senokot Tab*) 1 tab PO BEDTIME PRN PRN Reason: CONSTIPATION Simethicone (Mylicon Tab*) 80 mg PO Q8H PRN PRN Reason: NAUSEA Spironolactone (Aldactone Tab*) 50 mg PO DAILY [facility] Last Admin: 09/29/17 08:59 Dose: 50 mg Tamsulosin HCl (Flomax Cap*) 0.4 mg PO DAILY [facility] Last Admin: 09/29/17 08:59 Dose: 0.4 mg Vital Signs - 8 hr 09/29/17 09/29/17 09/29/17 04:09 05:08 07:33 Temperature 98.1 F 98.3 F Pulse Rate 80 75 Respiratory 18 18 16 Rate Blood Pressure 146/77 154/44 (mmHg) O2 Sat by Pulse 100 100 Oximetry 09/29/17 09/29/17 09/29/17 08:17 08:18 09:21 Temperature Pulse Rate 75 Respiratory 16 16 20 Rate Blood Pressure (mmHg) O2 Sat by Pulse 98 Oximetry 09/29/17 09/29/17 09:26 09:42 Temperature Pulse Rate Respiratory 20 Rate Blood Pressure (mmHg) O2 Sat by Pulse 98 Oximetry Oxygen Devices in Use Now: Nasal Cannula Appearance: NAD. Eyes: No Scleral Icterus, PERRLA Ears/Nose/Mouth/Throat: NL Teeth, Lips, Gums, Mucous Membranes Moist Respiratory: Symmetrical Chest Expansion and Respiratory Effort, Clear to Auscultation Cardiovascular: NL Sounds; No Murmurs; No JVD, - - irregularly irregular. right chest wall mass. Abdominal: - - soft, nontender, obese. umbilical hernia. Extremities: No Edema, - - left ankle with erythema, induration, pain. Neurological: Alert and Oriented x 3, NL Sensation, NL Muscle Strength and Tone Result Diagrams: 09/29/17 08:18 09/29/17 08:18 Additional Lab and Data: Laboratory Results - last 24 hr 09/28/17 09/28/17 09/28/17 12:08 12:08 12:08 WBC RBC Hgb Hct MCV MCH MCHC RDW Plt Count MPV Neut % (Auto) Lymph % (Auto) [place] % (Auto) Eos % (Auto) Baso % (Auto) Absolute Neuts (auto) Absolute Lymphs (auto) Absolute Monos (auto) Absolute Eos (auto) Absolute Basos (auto) Absolute Nucleated RBC Immature Gran % Neutrophils % Lymphocytes % Monocytes % Eosinophils % Basophils % Myelocytes % Nucleated RBC % Abs Neuts (Manual) Abs Lymphs (Manual) Abs Monocytes (Manual) Absolute Eos (Manual) Abs Basophils (Manual) Normal RBC Morphology Sodium Potassium Chloride Carbon Dioxide Anion Gap BUN Creatinine Est GFR ( Amer) Est GFR (Non-Af Amer) BUN/Creatinine Ratio Glucose POC Glucose (mg/dL) 192 H Calcium Magnesium Urine Osmolality 384 Ur Random Sodium 37 Vancomycin Trough 09/28/17 09/28/17 09/29/17 17:43 20:04 08:12 WBC RBC Hgb Hct MCV MCH MCHC RDW Plt Count MPV Neut % (Auto) Lymph % (Auto) [place] % (Auto) Eos % (Auto) Baso % (Auto) Absolute Neuts (auto) Absolute Lymphs (auto) Absolute Monos (auto) Absolute Eos (auto) Absolute Basos (auto) Absolute Nucleated RBC Immature Gran % Neutrophils % Lymphocytes % Monocytes % Eosinophils % Basophils % Myelocytes % Nucleated RBC % Abs Neuts (Manual) Abs Lymphs (Manual) Abs Monocytes (Manual) Absolute Eos (Manual) Abs Basophils (Manual) Normal RBC Morphology Sodium Potassium Chloride Carbon Dioxide Anion Gap BUN Creatinine Est GFR ( Amer) Est GFR (Non-Af Amer) BUN/Creatinine Ratio Glucose POC Glucose (mg/dL) 185 H 182 H 161 H Calcium Magnesium Urine Osmolality Ur Random Sodium Vancomycin Trough 09/29/17 09/29/17 09/29/17 08:18 08:18 08:20 WBC 18.9 H RBC 4.14 Hgb 10.8 L Hct 34 L MCV 82 MCH 26 L MCHC 32 RDW 17 H Plt Count 582 H MPV 7.1 L Neut % (Auto) Not Reportable Lymph % (Auto) Not Reportable [place] % (Auto) Not Reportable Eos % (Auto) Not Reportable Baso % (Auto) Not Reportable Absolute Neuts (auto) 16.0 H Absolute Lymphs (auto) 0.7 L Absolute Monos (auto) 1.3 H Absolute Eos (auto) 0.7 H Absolute Basos (auto) 0.2 Absolute Nucleated RBC Not Reportable Immature Gran % 2 Neutrophils % 76 Lymphocytes % 5 L Monocytes % 11 H Eosinophils % 5 Basophils % 1 Myelocytes % 2 H Nucleated RBC % Not Reportable Abs Neuts (Manual) 14.4 H Abs Lymphs (Manual) 0.9 L Abs Monocytes (Manual) 2.1 H Absolute Eos (Manual) 0.9 H Abs Basophils (Manual) 0.2 Normal RBC Morphology Normal Sodium 130 L Potassium 4.5 Chloride 98 L Carbon Dioxide 27 Anion Gap 5 BUN 60 H Creatinine 1.08 Est GFR ( Amer) 92.3 Est GFR (Non-Af Amer) 71.8 BUN/Creatinine Ratio 55.6 H Glucose 137 H POC Glucose (mg/dL) Calcium 10.0 Magnesium 1.9 Urine Osmolality Ur Random Sodium Vancomycin Trough 16.5 Microbiology and Other Data: Microbiology 09/27/17 19:19 Blood Venous Aerobic Blood Culture - Preliminary Staphylococcus Epidermidis 09/27/17 19:19 Blood Venous Anaerobic Blood Culture - Preliminary No Growth Day 1 09/27/17 19:19 Blood Venous Blood MRSA/MSSA (PCR) - Final Mrsa Negative S.aureus Negative 09/27/17 19:19 Blood Venous Aerobic Blood Culture - Preliminary No Growth Day 1 09/27/17 19:19 Blood Venous Anaerobic Blood Culture - Preliminary Staphylococcus Aureus 09/27/17 19:19 Blood Venous Blood MRSA/MSSA (PCR) - Final Mrsa Positive S.aureus Positive 09/27/17 08:41 Nasal Nasal Screen MRSA (PCR)(JEAN CARLOS) - Final Mrsa Not Detected Assess/Plan/Problems-Billing Assessment: 51 yo male PMH diastolic CHF, morbid obesity, severe pHTN, IDDM, Afib on Xarelto , MRSA bacteremia and left ankle abscess/OM/charcot foot s/p prolonged IV vanc. p/w fall, tachycardia and swollen left ankle. Continued bony destruction/ abscess of left foot with planned below knee amputation. MRSA bacteremia. Pending ECHO. - Patient Problems (1) Foot osteomyelitis, left Current Visit: No Status: Acute Code(s): M86.9 - OSTEOMYELITIS, UNSPECIFIED SNOMED Code(s): 9514620550363554 Comment: s/p at least 6 weeks vancomycin then doxy. (writtin for 30 days, says he finished about 2 weeks ago) appreciate Dr. Fierro and ortho recs. Likely will need BTKA. likely Sunday 10/01. holding Xarelto for potential surgery. Pt will need pre-op ECHO to assess his pHTN status which in past has been severe. s/p MRI (2) Hyponatremia Current Visit: Yes Status: Acute Code(s): E87.1 - HYPO-OSMOLALITY AND HYPONATREMIA SNOMED Code(s): 76163558 Comment: improved to 130 (got IVF, diuretics have been held) Sanjiv 37, UOsm 384. Uric Acid 6.9 wnl. TSH 4.5 on 07/06/17. (3) Atrial fibrillation Current Visit: No Status: Acute Code(s): I48.91 - UNSPECIFIED ATRIAL FIBRILLATION SNOMED Code(s): 66852687 Comment: Continue metoprolol 25mg BID holding xarelto now. (4) Chronic respiratory failure Current Visit: No Status: Acute Code(s): J96.10 - CHRONIC RESPIRATORY FAILURE, UNSP W HYPOXIA OR HYPERCAPNIA SNOMED Code(s): 64952933 Comment: Pt with chronic hypoxic respiratory failure secondary to COPD and obesity hypoventilation syndrome. Had severe pHTN 61 mm Hg on 07/24/17 but Pt has since lost 175lbs in last few months with aggrresive diuresis and dietary modification. Will order repeat ECHO in anticipation of below knee amputation. try to wean from supplemental O2 if does not need. Sat 99% on 3L currently. (5) Diabetes mellitus Current Visit: No Status: Acute Code(s): E11.9 - TYPE 2 DIABETES MELLITUS WITHOUT COMPLICATIONS SNOMED Code(s): 68428745 Comment: Lantus 44 qhs Lispro 02/13/10 (6) COPD (chronic obstructive pulmonary disease) Current Visit: No Status: Chronic Priority: Medium Code(s): J44.9 - CHRONIC OBSTRUCTIVE PULMONARY DISEASE, UNSPECIFIED SNOMED Code(s): 39618459 Comment: Stable; On 3 L but sat high 99s, will try to wean. Not bronchospastic. has lost 175 lbs. goal sat ~90-92% continue inhalers. (7) Diastolic CHF, chronic Current Visit: No Status: Acute Code(s): I50.32 - CHRONIC DIASTOLIC ( CONGESTIVE) HEART FAILURE SNOMED Code(s): 613744064 Comment: Euvolemic. his home torsemide has been held. continuing spironolactone. daily weights strict io lost 175 lbs over last few months with aggressive diuresis and diet modification. Status and Disposition: medicine inpatient.
--- NOTE | 2017-09-29 15:23 | CONS ---
CONSULTATION REPORT: DATE OF CONSULT: 09/29/17 HISTORY OF PRESENT ILLNESS: Mr. Anderson is a pleasant 51-year-old gentleman who is seen today in his h ospital bed on the 4th floor. The is with him in the room and supportive today. He has had a c hronic history of recurrent swelling, abscess and osteomyelitis of his left hindfoot. He has Charcot neuroarthropathy in the left hindfoot and at this point he is admitted with increasing swelling of t he hindfoot area. This is associated with some lack of balance and a fall but he has had chronic per sistent pain in the left hindfoot with any ambulation. His ambulatory status is limited household. He is able to pivot in and out of the bed and ambulate a few feet to the bathroom with a walker but m ost of the time in a wheelchair. He has a ramp at home. He has a very supportive family. He recent ly has lost 170 pounds by his account, basically just through discipline and diet control. He has banks d a couple of different debridements, drainage, and a biopsy of his left hindfoot. His underlying ba cterial infection appears to be MRSA. He has had a course of doxycycline, which was stopped a couple of weeks ago with temporary remission and swelling and redness but now it is apparent clinically johny t his infection has flared in the hindfoot area. PHYSICAL EXAM: He is in no acute distress, in the hospital bed. He has visibly lost weight. Overal l, he is alert and appropriate mood and affect and in relatively good spirits. His left leg however is swollen, erythematous, and has a stigmata of Charcot arthropathy with a rocker bottom foot and jonna e loose floppiness of the hindfoot area. He does have relatively intact skin with minimal edema from the mid calf up to the knee. He is densely hypoesthetic at the foot. Bautista has an MRI on this admission, which shows remarkable destruction in T1 and T2 images of his ank le, subtalar, and midfoot bones. There is also significant soft tissue collection of fluid. The patient with overwhelming acute on chronic osteomyelitis which is ravaging his left hindfoot and would need to be removed surgically. I have discussed with him and his extensively the nature o f a transtibial amputation and the most likely recovery course. He is on Xarelto and this will be de layed a couple of days while his IV antibiotics are still underway. [id number]/[facility] #: [id number]
[2017-09-29] MEDS: Insulin GLARGINE(*) 1 UNITS UNIT SUBCUT SCH (20:15)
[2017-09-30] MEDS: oxyCODONE TAB* 5 MG TAB PO PRN ×5 (00:07→20:40)
[2017-09-30] MEDS: guaiFENesin ER TAB 600 MG PO SCH ×2 (05:12→16:27)
[2017-09-30] MEDS: Heparin VIAL(*) 5000 UNITS/ML VIAL (FIVE THOUSAND) SUBCUT SCH ×2 (05:13→12:36)
[2017-09-30] MEDS: Levothyroxine TAB* 100 MCG TAB PO SCH (05:13)
[2017-09-30] MEDS ORDERED: Perflutren Lipid Microsphere* 3 ML VIAL ONE (07:34)
[2017-09-30] MEDS: Vancomycin(*) 1,000 MG in NS 0.9% 250 ML* 250 ML IVPB SCH (09:29)
[2017-09-30] MEDS: Insulin LISPRO* 1 UNITS UNIT SUBCUT SCH ×3 (09:29→17:27)
[2017-09-30] MEDS: Polyethylene Glycol 3350* 17 GM PACKET PO SCH ×2 (09:30→20:48)
[2017-09-30] MEDS: Allopurinol TAB* 300 MG PO SCH (09:30)
[2017-09-30] MEDS: Atorvastatin* 40 MG TAB PO SCH (09:31)
[2017-09-30] MEDS: Cholecalciferol TAB* 1000 UNITS PO SCH (09:31)
[2017-09-30] MEDS: Metoprolol Tartrate TAB* 25 MG PO SCH ×2 (09:31→20:39)
[2017-09-30] MEDS: Tamsulosin CAP* 0.4 MG PO SCH (09:31)
[2017-09-30] MEDS: Spironolactone TAB* 25 MG PO SCH (09:31)
[2017-09-30] MEDS: Mometasone/Formoter 200/5 MDI INH SCH ×2 (09:42→20:07)
--- NOTE | 2017-09-30 12:28 | PN ---
Progress Note - Progress Note Date of Service: 09/30/17 SOAP: Subjective: Pt evaluated at bedside with left foot infection. Scheduled for left leg BKA . C/o mild pain in foot. Denies f/c Objective: Vital Signs: Temp Pulse Resp BP Pulse Ox 97.9 F 88 18 138/45 97 09/30/17 11:17 09/30/17 11:17 09/30/17 12:02 09/30/17 11:17 09/30/17 11:17 Gen: A&Ox3, NAD at rest LLE: Dressing to foot as there was some purulent drainage laterally. Erythema and edema improving. Assessment: Left foot infection with diffuse osteomyelitis Plan: To OR 10/01/17 NPO after midnight tonight
[2017-09-30] MEDS: Nystatin CREAM* 15 GM TUBE TOPICAL SCH ×2 (12:36→20:40)
--- NOTE | 2017-09-30 15:06 | ECHO ---
Patient: DAVE LUQUE [facility] Rec#: [id number] : 1965 Date: 09/30/2017 Age: 51y Height: 180.34 cm / 71.0 in Weight: 167.83 kg / 369.9 lbs Sex: M BSA: 2.74 Room#: 422 Admit Date#: 09/27/2017 Type: Inpatient Referring: Dennis Cervantes Reading: [place] MD Salon Designer: Lorna Akers,TARICS,RDMS CC: Lencho Plasencia MD Transthoracic Echocardiogram Indication: Bacteremia, PHTN BP: 120/60 HR: 83 Rhythm: NSR with PACs Findings History: HTN, HLD, AFIB, severe PHTN, DVT/PE, CKD, DM, VENTURA, morbid obesity, respiratory failure. Technical Comments: The study quality is fair. The study is technically limited due to patient body habitus. The study was technically limited due to the patient's inability to lay in the left lateral decubitus position. Left Ventricle: The left ventricular chamber size is mildly dilated. Moderate concentric left ventricular hypertrophy is observed. The estimated ejection fraction is 50-55%. TDS and the endocardium is not well visualized. There is septal flattening of the interventricular septum consistent with right ventricular volume or pressure overload. The assessment of diastolic function is non-diagnostic. Left Atrium: The left atrium is mildly dilated. Right Ventricle: The right ventricle is mildly dilated. The right ventricular global systolic function is low normal. Right Atrium: The right atrium is moderate to severely dilated. Aortic Valve: The aortic valve is trileaflet. The aortic valve leaflets are mildly thickened. There is no evidence of aortic regurgitation. There is no evidence of aortic stenosis. There is no aortic vegetation present. Mitral Valve: There is mitral annular calcification. The mitral valve leaflets are mildly thickened. There is mild mitral regurgitation. There is borderline mitral stenosis. No vegetation is observed on the mitral valve. Tricuspid Valve: The tricuspid valve structure is not well visualized. There is trace to mild tricuspid regurgitation. Unable to estimate the right ventricular systolic pressure. Pulmonic Valve: The pulmonic valve appears normal. There is a trace pulmonic regurgitation. No vegetation is observed on the pulmonic valve. Pericardium: There is no significant pericardial effusion. Aorta: There is mild dilatation of the ascending aorta. There is mild dilatation of the aortic arch. There is mild dilatation of the aortic root. Pulmonary Artery: The main pulmonary artery is not well visualized. Venous: The inferior vena cava is dilated. There is a greater than 50% respiratory change in the inferior vena cava dimension. Contrast: Definity was used to optimize study. A total of 2 ml was used. Was given by Shmuel WAYNE, patient tolerated well. Summary: There are changes noted when compared to the previous study done on 07/24/2017, TR is less now. Unable to estimate PASP now instead of severe PHTN then. Conclusions The study is technically limited due to patient body habitus. The study was technically limited due to the patient's inability to lay in the left lateral decubitus position. The left ventricular chamber size is mildly dilated. Moderate concentric left ventricular hypertrophy is observed. The estimated ejection fraction is 50-55%. TDS and the endocardium is not well visualized. There is septal flattening of the interventricular septum consistent with right ventricular volume or pressure overload. The assessment of diastolic function is non-diagnostic. The left atrium is mildly dilated. The right ventricle is mildly dilated. The right atrium is moderate to severely dilated. There is mild mitral regurgitation. There is borderline mitral stenosis. There is trace to mild tricuspid regurgitation. Unable to estimate the right ventricular systolic pressure. There is a trace pulmonic regurgitation. There is mild dilatation of the ascending aorta. There is mild dilatation of the aortic arch. There is mild dilatation of the aortic root. There are changes noted when compared to the previous study done on 07/24/2017, TR is less now. Unable to estimate PASP now instead of severe PHTN then. Measurements Name Value Normal Range RVIDd (AP) 2D 2.8 cm (0.9 - 2.6) RVDdMajor (2D) 4.9 cm (2.2 - 4.4) RAd ISD 4CH 6.3 cm (3.4 - 4.9) RA (A4C)W 7.1 cm (2.9 - 4.6) IVSd (2D) 1.7 cm (0.6 - 1) LVPWd (2D) 1.5 cm (0.6 - 1) LVIDd (2D) 5.8 cm (3.6 - 5.4) LVIDs (2D) 3.9 cm - LV FS (2D) 32 % (25 - 45) Aortic Annulus 2.6 cm (1.4 - 2.6) Ao root diameter (2D) 3.8 cm (2.1 - 3.5) Ascending Ao 3.7 cm (2.1 - 3.4) Aortic arch 3.5 cm (1.8 - 3.4) LA dimension (AP) 2D 4.9 cm (2.3 - 3.8) LAd ISD 4CH 5.7 cm (2.9 - 5.3) LA ISD 4CH W 5.4 cm (2.5 - 4.5) Name Value Normal Range LA ESV SP 4CH (A/L) 100.7 ml - LA ESV SP 2CH (A/L) 68.46 ml - LA ESV BP (A/L) 88.33 ml - LA ESV BP (A/L) index 32 ml/m2 - LA ESV SP 4CH (MOD) 87.39 ml - LA ESV SP 2CH (MOD) 65.68 ml - Name Value Normal Range MV E-wave Vmax 1.1 m/sec - MV deceleration time 225 msec - MV A-wave Vmax 0.9 m/sec - MV E:A ratio 1.2 ratio - LV septal e' Vmax 0.05 m/sec - LV lateral e' Vmax 0.06 m/sec - LV E:e' septal ratio 22 ratio - LV E:e' lateral ratio 18 ratio - Name Value Normal Range AV Vmax 1.4 m/sec - AV VTI 31 cm - AV peak gradient 8 mmHg - AV mean gradient 5 mmHg - LVOT diameter 2.5 cm - LVOT Vmax 1 m/sec - LVOT VTI 22 cm - LVOT peak gradient 4 mmHg - LVOT mean gradient 2.4 mmHg - NAGA (continuity Vmax) 3.5 cm2 - NAGA (continuity VTI) 3.5 cm2 - TALIA Vmax 1 m/sec - Name Value Normal Range MV Vmax 1.3 m/sec - MV VTI 39 cm - MV peak gradient 7 mmHg - MV mean gradient 3.4 mmHg - MV PHT 80 msec - MVA (PHT) 2.8 cm2 - MVA (continuity VTI) 2.8 cm2 - Name Value Normal Range RAP 8 mmHg - IVC diameter 2.6 cm - Name Value Normal Range PV Vmax 0.9 m/sec - PV peak gradient 3.2 mmHg -
--- NOTE | 2017-09-30 17:45 | PN ---
Subjective Date of Service: 09/30/17 Interval History: No overnight events. He feels okay this afternoon but is tearful when I discuss operative plans with him. He denies shortness of breath or chest pain. Objective Active Medications: Acetaminophen (Tylenol Tab*) 325 mg PO Q6H PRN PRN Reason: PAIN Last Admin: 09/27/17 12:08 Dose: 325 mg Albuterol (Ventolin 2.5 Mg/3 Ml Neb.Christy*) 2.5 mg INH Q4H PRN PRN Reason: SOB/WHEEZING Allopurinol (Zyloprim Tab*) 600 mg PO DAILY [facility] Last Admin: 09/30/17 09:30 Dose: 600 mg Atorvastatin Calcium (Lipitor*) 40 mg PO DAILY [facility] Last Admin: 09/30/17 09:31 Dose: 40 mg Cholecalciferol (Vitamin D Tab*) 1,000 units PO DAILY [facility] Last Admin: 09/30/17 09:31 Dose: 1,000 units Famotidine (Pepcid Iv*) 20 mg IV ONCE ONE Stop: 10/01/17 06:01 Guaifenesin (Mucinex*) 600 mg PO Q12H [facility] Last Admin: 09/30/17 16:27 Dose: Not Given Heparin Sodium (Porcine) (Heparin Vial(*)) 5,000 units SUBCUT Q8HR [facility] Stop: 09/30/17 23:59 Last Admin: 09/30/17 12:36 Dose: 5,000 units Vancomycin HCl 1,000 mg/ (Sodium Chloride) 250 mls @ 166.667 mls/hr IVPB Q24H [facility] Last Admin: 09/30/17 09:29 Dose: 166.667 mls/hr Insulin Glargine (Lantus(*)) 44 units SUBCUT BEDTIME [facility] Last Admin: 09/29/17 20:15 Dose: 44 units Insulin Human Lispro (Humalog*) 10 units SUBCUT TID PC [facility] Last Admin: 09/30/17 17:27 Dose: 10 units Levothyroxine Sodium (Synthroid Tab*) 200 mcg PO DAILY@0600 [facility] Last Admin: 09/30/17 05:13 Dose: 200 mcg Metoprolol Tartrate (Lopressor Tab*) 25 mg PO BID [facility] Last Admin: 09/30/17 09:31 Dose: 25 mg Mometasone Furoate/Formoterol Fumar (Dulera 200/5 Mdi*) 2 puff INH BID [facility] PRN Reason: Protocol Last Admin: 09/30/17 09:42 Dose: 2 puff Nystatin (Nystatin Cream*) 1 applic TOPICAL BID [facility] Last Admin: 09/30/17 12:36 Dose: Not Given Oxycodone HCl (Roxycodone Tab*) 10 mg PO Q4H PRN PRN Reason: PAIN - SEVERE Last Admin: 09/30/17 16:28 Dose: 10 mg Pharmacy Consult (Vancomycin Per Pharmacy*) 1 note FOLLOW UP .VANC PER PHARMACY [facility] Pharmacy Profile Note (Vancomycin Trough Check) 1 note FOLLOW UP ONCE ONE Stop: 10/01/17 08:01 Polyethylene Glycol/Electrolytes (Miralax*) 17 gm PO BID [facility] Last Admin: 09/30/17 09:30 Dose: 17 gm Senna (Senokot Tab*) 1 tab PO BEDTIME PRN PRN Reason: CONSTIPATION Simethicone (Mylicon Tab*) 80 mg PO Q8H PRN PRN Reason: NAUSEA Spironolactone (Aldactone Tab*) 50 mg PO DAILY [facility] Last Admin: 09/30/17 09:31 Dose: 50 mg Tamsulosin HCl (Flomax Cap*) 0.4 mg PO DAILY [facility] Last Admin: 09/30/17 09:31 Dose: 0.4 mg Vital Signs - 8 hr 09/30/17 09/30/17 09/30/17 10:21 11:17 12:02 Temperature 97.9 F Pulse Rate 88 Respiratory 16 20 18 Rate Blood Pressure 138/45 (mmHg) O2 Sat by Pulse 98 97 Oximetry 09/30/17 09/30/17 09/30/17 15:47 16:28 17:33 Temperature 98.9 F Pulse Rate 78 Respiratory 18 20 Rate Blood Pressure 130/45 (mmHg) O2 Sat by Pulse 95 95 Oximetry Oxygen Devices in Use Now: Nasal Cannula Appearance: alert, obese, no distress, able to speak in full sentences, lying almost flat Eyes: No Scleral Icterus Neck: NL Appearance and Movements; NL JVP, - - JVP difficult to assess due to body habitus Respiratory: Symmetrical Chest Expansion and Respiratory Effort, Clear to Auscultation Cardiovascular: NL Sounds; No Murmurs; No JVD, RRR, - - large pedunculated erythematous mass on lateral right chest wall Abdominal: NL Sounds; No Tenderness; No Distention Lymphatic: No Cervical Adenopathy Extremities: - - dark venous stasis changes b/l shins, left heel wrapped with some sanguinous drainage Neurological: Alert and Oriented x 3 Result Diagrams: 09/29/17 08:18 09/29/17 08:18 Additional Lab and Data: Laboratory Results - last 24 hr 09/28/17 09/28/17 09/28/17 12:08 12:08 12:08 WBC RBC Hgb Hct MCV MCH MCHC RDW Plt Count MPV Neut % (Auto) Lymph % (Auto) [place] % (Auto) Eos % (Auto) Baso % (Auto) Absolute Neuts (auto) Absolute Lymphs (auto) Absolute Monos (auto) Absolute Eos (auto) Absolute Basos (auto) Absolute Nucleated RBC Immature Gran % Neutrophils % Lymphocytes % Monocytes % Eosinophils % Basophils % Myelocytes % Nucleated RBC % Abs Neuts (Manual) Abs Lymphs (Manual) Abs Monocytes (Manual) Absolute Eos (Manual) Abs Basophils (Manual) Normal RBC Morphology Sodium Potassium Chloride Carbon Dioxide Anion Gap BUN Creatinine Est GFR ( Amer) Est GFR (Non-Af Amer) BUN/Creatinine Ratio Glucose POC Glucose (mg/dL) 192 H Calcium Magnesium Urine Osmolality 384 Ur Random Sodium 37 Vancomycin Trough 09/28/17 09/28/17 09/29/17 17:43 20:04 08:12 WBC RBC Hgb Hct MCV MCH MCHC RDW Plt Count MPV Neut % (Auto) Lymph % (Auto) [place] % (Auto) Eos % (Auto) Baso % (Auto) Absolute Neuts (auto) Absolute Lymphs (auto) Absolute Monos (auto) Absolute Eos (auto) Absolute Basos (auto) Absolute Nucleated RBC Immature Gran % Neutrophils % Lymphocytes % Monocytes % Eosinophils % Basophils % Myelocytes % Nucleated RBC % Abs Neuts (Manual) Abs Lymphs (Manual) Abs Monocytes (Manual) Absolute Eos (Manual) Abs Basophils (Manual) Normal RBC Morphology Sodium Potassium Chloride Carbon Dioxide Anion Gap BUN Creatinine Est GFR ( Amer) Est GFR (Non-Af Amer) BUN/Creatinine Ratio Glucose POC Glucose (mg/dL) 185 H 182 H 161 H Calcium Magnesium Urine Osmolality Ur Random Sodium Vancomycin Trough 09/29/17 09/29/17 09/29/17 08:18 08:18 08:20 WBC 18.9 H RBC 4.14 Hgb 10.8 L Hct 34 L MCV 82 MCH 26 L MCHC 32 RDW 17 H Plt Count 582 H MPV 7.1 L Neut % (Auto) Not Reportable Lymph % (Auto) Not Reportable [place] % (Auto) Not Reportable Eos % (Auto) Not Reportable Baso % (Auto) Not Reportable Absolute Neuts (auto) 16.0 H Absolute Lymphs (auto) 0.7 L Absolute Monos (auto) 1.3 H Absolute Eos (auto) 0.7 H Absolute Basos (auto) 0.2 Absolute Nucleated RBC Not Reportable Immature Gran % 2 Neutrophils % 76 Lymphocytes % 5 L Monocytes % 11 H Eosinophils % 5 Basophils % 1 Myelocytes % 2 H Nucleated RBC % Not Reportable Abs Neuts (Manual) 14.4 H Abs Lymphs (Manual) 0.9 L Abs Monocytes (Manual) 2.1 H Absolute Eos (Manual) 0.9 H Abs Basophils (Manual) 0.2 Normal RBC Morphology Normal Sodium 130 L Potassium 4.5 Chloride 98 L Carbon Dioxide 27 Anion Gap 5 BUN 60 H Creatinine 1.08 Est GFR ( Amer) 92.3 Est GFR (Non-Af Amer) 71.8 BUN/Creatinine Ratio 55.6 H Glucose 137 H POC Glucose (mg/dL) Calcium 10.0 Magnesium 1.9 Urine Osmolality Ur Random Sodium Vancomycin Trough 16.5 Microbiology and Other Data: Microbiology 09/27/17 19:19 Blood Venous Aerobic Blood Culture - Preliminary Staphylococcus Epidermidis 09/27/17 19:19 Blood Venous Anaerobic Blood Culture - Preliminary No Growth Day 1 09/27/17 19:19 Blood Venous Blood MRSA/MSSA (PCR) - Final Mrsa Negative S.aureus Negative 09/27/17 19:19 Blood Venous Aerobic Blood Culture - Preliminary No Growth Day 1 09/27/17 19:19 Blood Venous Anaerobic Blood Culture - Preliminary Staphylococcus Aureus 09/27/17 19:19 Blood Venous Blood MRSA/MSSA (PCR) - Final Mrsa Positive S.aureus Positive 09/27/17 08:41 Nasal Nasal Screen MRSA (PCR)(JEAN CARLOS) - Final Mrsa Not Detected Assess/Plan/Problems-Billing Assessment: 51 yo male PMH diastolic CHF, morbid obesity, severe pHTN, IDDM, Afib on Xarelto , MRSA bacteremia and left ankle abscess/OM/charcot foot s/p long course of outpatient abx. p/w fall, tachycardia and swollen left ankle. Continued bony destruction/abscess of left foot now requiring a BKA . MRSA bacteremia. - Patient Problems (1) Sepsis Current Visit: No Status: Acute Priority: High Comment: due to bacteremia from left foot osteomyelitis and cellulitis continue vancomycin (2) Foot osteomyelitis, left Current Visit: No Status: Acute Code(s): M86.9 - OSTEOMYELITIS, UNSPECIFIED SNOMED Code(s): 9937548097141299 Comment: failed conservative management Ortho and ID following Likely will need BTKA, however he is elevated risk from a cardiac and respiratory standpoint. I discussed this with him at length--that he is at risk for major adverse cardiac events perioperatively However given the urgent nature of surgery for source control of his ongoing sepsis, there is no further cardiac work up indicated at this time. An echocardiogram is actually slightly improved from prior Recommend pre- and post- operative EKG and ICU monitoring perioperatively Xarelto on hold (3) Atrial fibrillation Current Visit: No Status: Acute Code(s): I48.91 - UNSPECIFIED ATRIAL FIBRILLATION SNOMED Code(s): 08178795 Comment: Continue metoprolol 25mg BID holding xarelto now. (4) Chronic respiratory failure Current Visit: No Status: Acute Code(s): J96.10 - CHRONIC RESPIRATORY FAILURE, UNSP W HYPOXIA OR HYPERCAPNIA SNOMED Code(s): 61621385 Comment: COPD and obesity hypoventilation syndrome. Had severe pHTN 61 mm Hg on 07/24/17 but Pt has since lost 175lbs in last few months with aggrresive diuresis and dietary modification. TTE was unable to estimate PASP this time, but TR is improved, suggesting lower R-sided pressures at this time. now stable on room air - 2 L occasionally (5) Diastolic CHF, chronic Current Visit: No Status: Acute Code(s): I50.32 - CHRONIC DIASTOLIC ( CONGESTIVE) HEART FAILURE SNOMED Code(s): 996480505 Comment: Euvolemic. his home torsemide has been held. continuing spironolactone. daily weights strict io lost 175 lbs over last few months with aggressive diuresis and diet modification. Status and Disposition: medicine inpatient.
[2017-09-30] MEDS: Insulin GLARGINE(*) 1 UNITS UNIT SUBCUT SCH (20:40)
[2017-09-30] MEDS: LORazepam TAB(*) 1 MG PO PRN (21:24)
[2017-10-01] MEDS: Heparin VIAL(*) 5000 UNITS/ML VIAL (FIVE THOUSAND) SUBCUT SCH (00:59)
[2017-10-01] MEDS: oxyCODONE TAB* 5 MG TAB PO PRN (03:20)
[2017-10-01] MEDS: LORazepam TAB(*) 1 MG PO PRN ×2 (03:21→13:27)
[2017-10-01] MEDS: guaiFENesin ER TAB 600 MG PO SCH ×2 (03:38→17:17)
[2017-10-01] MEDS ORDERED: Famotidine IV* 10 MG/ML 2 ML (20 mg) IV ONE (06:00)
[2017-10-01] MEDS: Levothyroxine TAB* 100 MCG TAB PO SCH (07:16)
[2017-10-01] MEDS ORDERED: Vancomycin Trough Check NOTE FOLLOW UP ONE (08:00)
[2017-10-01 08:47] LABS: Hematocrit 34 % (42-52); Hemoglobin 10.5 g/dl (14.0-18.0); Mean Corpuscular HGB Conc 31 g/dl (31-36); Mean Corpuscular Hemoglobin 26 pg (27-31); Mean Corpuscular Volume 83 fL (80-94); Platelet Count 633 10^3/ul (150-450); Red Blood Count 4.06 10^6/ul (4.0-5.4); Red Cell Distribution Width 17 % (10.5-15); White Blood Count 15.5 10^3/ul (3.5-10.8)
[2017-10-01 08:49] LABS: INR 1.17 (0.77-1.02)
[2017-10-01] MEDS ORDERED: fentaNYL* 50 MCG/ML 2 ML VIAL (100 MCG VIAL) ONE (09:06)
[2017-10-01] MEDS ORDERED: KETAMINE HCL* 50 MG/ML 10 ML VIAL ONE (09:06)
[2017-10-01] MEDS ORDERED: Midazolam* 1 MG/ML 5 ML VIAL (5 MG) ONE ×2 (09:06→09:26)
[2017-10-01] MEDS ORDERED: Bupivacaine 0.5% SDV PF* 30ML VIAL ONE (09:14)
[2017-10-01 09:20] LABS: Vancomycin Trough 14.7 mcg/mL
[2017-10-01] MEDS: Mometasone/Formoter 200/5 MDI INH SCH ×2 (09:20→19:40)
[2017-10-01 09:57] LABS: ABS Basophils 0.1 10^3/ul (0-0.2); ABS Eosinophils 0.7 10^3/ul (0-0.6); ABS Lymphocytes 0.8 10^3/ul (1.0-4.8); ABS Monocytes 0.9 10^3/ul (0-0.8)
[2017-10-01 09:59] LABS: Monocytes % 4 % (0-7)
[2017-10-01] MEDS ORDERED: PROCHLORPERAZINE INJ 5 MG/ML 2 ML VIAL IV PRN (10:24)
[2017-10-01] MEDS ORDERED: fentaNYL* 50 MCG/ML 2 ML VIAL (100 MCG VIAL) IV PRN (10:24)
[2017-10-01] MEDS ORDERED: Naloxone* 0.4 MG/ML 1 ML VIAL IV PRN (10:24)
[2017-10-01] MEDS ORDERED: Phenylephrine INJ* 10 MG/ML 1 ML VIAL (10 MG) ONE (10:58)
[2017-10-01] MEDS ORDERED: Propofol* 500 MG/50 ML BTL ONE (10:58)
[2017-10-01] MEDS ORDERED: Bupivacaine 0.5% PF 10 ML VIAL INJ ONE (10:59)
[2017-10-01] MEDS: Insulin LISPRO* 1 UNITS UNIT SUBCUT SCH ×2 (11:09→17:16)
[2017-10-01] MEDS ORDERED: Dextrose 50% Syringe 50 ML* 25 GM/50 ML SYRINGE IV PUSH PRN (12:57)
--- NOTE | 2017-10-01 13:01 | PN ---
Subjective Date of Service: 10/01/17 Interval History: Mr. Anderson reports phantom pain in his left foot in the immediate post operative period. He denies other complaint including chest pain, SOB, nausea, or abdominal pain. Objective Active Medications: Acetaminophen (Tylenol Tab*) 325 mg PO Q6H PRN Albuterol (Ventolin 2.5 Mg/3 Ml Neb.Christy*) 2.5 mg INH Q4H PRN Allopurinol (Zyloprim Tab*) 600 mg PO DAILY [facility] Atorvastatin Calcium (Lipitor*) 40 mg PO DAILY [facility] Cholecalciferol (Vitamin D Tab*) 1,000 units PO DAILY [facility] Fentanyl Citrate (Fentanyl*) 50 mcg IV Q5M PRN Guaifenesin (Mucinex*) 600 mg PO Q12H [facility] Vancomycin HCl 1,000 mg/ (Sodium Chloride) 250 mls @ 166.667 mls/hr IVPB Q24H [facility] Insulin Glargine (Lantus(*)) 44 units SUBCUT BEDTIME [facility] Insulin Human Lispro (Humalog*) 10 units SUBCUT TID PC [facility] Levothyroxine Sodium (Synthroid Tab*) 200 mcg PO DAILY@0600 [facility] Lorazepam (Ativan Tab(*)) 1 mg PO Q6H PRN Metoprolol Tartrate (Lopressor Tab*) 25 mg PO BID [facility] Mometasone Furoate/Formoterol Fumar (Dulera 200/5 Mdi*) 2 puff INH BID [facility] Naloxone HCl (Narcan*) 0.08 mg IV Q2M PRN Nystatin (Nystatin Cream*) 1 applic TOPICAL BID [facility] Oxycodone HCl (Roxycodone Tab*) 10 mg PO Q4H PRN Pharmacy Consult (Vancomycin Per Pharmacy*) 1 note FOLLOW UP .VANC PER PHARMACY [facility] Polyethylene Glycol/Electrolytes (Miralax*) 17 gm PO BID [facility] Prochlorperazine Edisylate (Compazine Inj*) 5 mg IV ONCE PRN Senna (Senokot Tab*) 1 tab PO BEDTIME PRN Simethicone (Mylicon Tab*) 80 mg PO Q8H PRN Spironolactone (Aldactone Tab*) 50 mg PO DAILY [facility] Tamsulosin HCl (Flomax Cap*) 0.4 mg PO DAILY [facility] Vital Signs: Temp Pulse Resp BP Pulse Ox 97.2 F 81 21 144/76 99 10/01/17 11:09 10/01/17 12:31 10/01/17 12:31 10/01/17 12:31 10/01/17 12:31 Oxygen Devices in Use Now: Nasal Cannula Appearance: Male lying in bed in NAD Eyes: No Scleral Icterus Ears/Nose/Mouth/Throat: Mucous Membranes Moist Neck: Trachea Midline Respiratory: Symmetrical Chest Expansion and Respiratory Effort, Clear to Auscultation Cardiovascular: NL Sounds; No Murmurs; No JVD, No Edema Abdominal: NL Sounds; No Tenderness; No Distention Lymphatic: No Cervical Adenopathy Extremities: No Edema Skin: No Rash or Ulcers, - - Left transtibial amputation dressing CDI Neurological: Alert and Oriented x 3, NL Muscle Strength and Tone Nutrition: Taking PO's Result Diagrams: 10/01/17 08:33 10/01/17 08:33 Additional Lab and Data: Vital Signs: Temp Pulse Resp BP Pulse Ox 97.2 F 81 20 144/76 99 10/01/17 11:09 10/01/17 12:31 10/01/17 13:28 10/01/17 12:31 10/01/17 12:31 Microbiology and Other Data: . Assess/Plan/Problems-Billing Assessment: Mr. Anderson is a 51 yo male PMH diastolic CHF, morbid obesity, severe pHTN, IDDM, Afib on Xarelto, MRSA bacteremia and left ankle abscess/OM/charcot foot s/p long course of outpatient abx who p/w fall, tachycardia and swollen left ankle with MRSA bacteremia and osteomyelitis of left foot now requiring a transtibial amputation. - Patient Problems (1) Sepsis Comment: - Due to bacteremia from left foot osteomyelitis and cellulitis (2) Foot osteomyelitis, left Comment: - POD # 0 s/p transtibial amputation. - Ortho and ID following. - Pain meds prn with bowel regimen. - Continue vancomycin. (3) MRSA (methicillin resistant Staphylococcus aureus) Comment: - Continue vancomycin. - ID following. - No evidence of vegetation noted on TTE. (4) Chronic respiratory failure Comment: - Stable on 1-2 L NC. - COPD, obesity hypoventilation syndrome, and history of severe pulmonary hypertension. - Had severe pHTN 61 mm Hg on 07/24/17 but Pt has since lost 175lbs in last few months with aggrresive diuresis and dietary modification. TTE was unable to estimate PASP this time, but TR is improved, suggesting lower R-sided pressures. (5) Diastolic CHF, chronic Comment: - Euvolemic. - Torsemide on hold, continue spironolactone. - Daily weights, strict I/Os - Lost 175 lbs over last few months with aggressive diuresis and diet modification. (6) Hypertension Comment: - BP is under good control. - Continue metoprolol and spironolactone. (7) Atrial fibrillation Comment: - Continue metoprolol 25mg BID. - Resume xarelto when approved per ortho. (8) Pulmonary embolism Status: Acute Comment: - Pt has h/o DVT/PE. - Resume xarelto when approved per ortho. (9) Diabetes mellitus Comment: - BGs well controlled. - Continue Lantus 44 qhs, hold Lispro 10units AC until tolerating oral intake well. Continue SSI coverage for meals. (10) CKD (chronic kidney disease) stage 3, GFR 30-59 ml/min Comment: - Creatine at baseline, stable. (11) Hyponatremia Comment: - Improved to 130 (got IVF, diuretics have been held) - Sanjiv 37, UOsm 384. (12) Anemia Comment: - Stable, chronic. 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 - Would consider biopsy for chaning size or TTP (recommended per radiology report) (14) Hypothyroid Comment: - Continue levothryoxine. (15) Gout Comment: - Continue allopurinol 600mg daily. (16) DVT prophylaxis Comment: -SCDs, resume Xarelto when approved per ortho (17) Full code status Comment: Status and Disposition: Inpatient.
[2017-10-01] MEDS ORDERED: fentaNYL* 50 MCG/ML 2 ML VIAL (100 MCG VIAL) IV SLOW PU PRN (13:17)
[2017-10-01] MEDS ORDERED: Docusate CAP* 100 MG PO PRN (13:41)
[2017-10-01] MEDS ORDERED: Bisacodyl SUPP* 10 MG SUPP PR PRN (13:42)
[2017-10-01] MEDS ORDERED: HYDROmorphone PCA* 20 MG/20 ML PCA.SYRING PCA SCH (14:00)
[2017-10-01] MEDS: Vancomycin(*) 1,000 MG in NS 0.9% 250 ML* 250 ML IVPB SCH (14:30)
[2017-10-01] MEDS: Allopurinol TAB* 300 MG PO SCH (14:30)
[2017-10-01] MEDS: Metoprolol Tartrate TAB* 25 MG PO SCH ×2 (14:31→22:30)
[2017-10-01] MEDS: Atorvastatin* 40 MG TAB PO SCH (14:31)
[2017-10-01] MEDS: Cholecalciferol TAB* 1000 UNITS PO SCH (14:31)
[2017-10-01] MEDS: Nystatin CREAM* 15 GM TUBE TOPICAL SCH ×2 (14:31→22:32)
[2017-10-01] MEDS: Spironolactone TAB* 25 MG PO SCH (14:32)
[2017-10-01] MEDS: Polyethylene Glycol 3350* 17 GM PACKET PO SCH ×3 (14:32→22:35)
[2017-10-01] MEDS: Tamsulosin CAP* 0.4 MG PO SCH (14:33)
[2017-10-01] MEDS ORDERED: HYDROmorphone INJ* 2 MG/ML CARPUJECT SYRINGE IV SLOW PU ONE (15:39)
[2017-10-01] MEDS: Insulin GLARGINE(*) 1 UNITS UNIT SUBCUT SCH (22:30)
--- NOTE | 2017-10-01 22:45 | OP ---
DATE OF OPERATION: 10/01/17 - ROOM #ICU-03 DATE OF : 63 SURGEON: Rik Muñoz MD BRICK STACKER: Maribel Aguilar PA-C PRE-OP DIAGNOSIS: Chronic osteomyelitis, left ankle, hind foot. POST-OP DIAGNOSIS: Chronic osteomyelitis, left ankle, hind foot. OPERATIVE PROCEDURE: Left transtibial amputation. DESCRIPTION OF PROCEDURE: The patient was taken to the operating room where spinal anesthetic was administered. He had a thigh tourniquet applied at 300 mmHg. We made a fish mouth incision over the mid portion of the left calf with a shorter anterior flap. We pulled the flap proximally to expose the tibia which was then transected with a WindPipe 6 blade and the fibula transected slightly more proximally. We divided the anterior compartment with the 10 blade. We then flexed and distracted through the osteotomy exposing the posterior flap which was then divided as well. Suture ligatures were performed of all visible vessels and then we irrigated thoroughly. Local cultures were sent. The leg was pathology. After the tourniquet was dropped to 12 mmHg , we inspected for further bleeding and these were also controlled with suture ligatures. We then closed the deep fascia with #1 Vicryl sutures anterior and posterior, 0 Vicryl for the subcu and then 2-0 Vicryl for subcutaneous tissue. 2-0 Prolene was applied for the skin. Compression dressing, plaster splint was applied and the patient tolerated the procedure well. Blood loss was approximately 200 cc. The patient did receive vancomycin during the surgery. [id number]/CPS #: [id number] MTDD
[2017-10-02] MEDS: CMCS Melatonin (NF) 3 MG TAB PO PRN ×2 (00:16→20:55)
[2017-10-02 05:17] LABS: Hematocrit 32 % (42-52); Hemoglobin 10.3 g/dl (14.0-18.0); Mean Corpuscular HGB Conc 32 g/dl (31-36); Mean Corpuscular Hemoglobin 26 pg (27-31); Mean Corpuscular Volume 82 fL (80-94); Mean Platelet Volume 6.9 um3 (7.4-10.4); Platelet Count 624 10^3/ul (150-450); Red Blood Count 3.94 10^6/ul (4.0-5.4); Red Cell Distribution Width 17 % (10.5-15); White Blood Count 17.7 10^3/ul (3.5-10.8)
[2017-10-02 05:27] LABS: EGFR Non-African American 87.5 (>60)
[2017-10-02 05:33] LABS: ABS Basophils 0.1 10^3/ul (0-0.2); ABS Eosinophils 0.4 10^3/ul (0-0.6); ABS Lymphocytes 0.8 10^3/ul (1.0-4.8); ABS Monocytes 1.1 10^3/ul (0-0.8); ABS Neutrophils 15.3 10^3/ul (1.5-7.7); ABS Nucleated RBC 0 10^3/ul; Eosinophil % 2.5 % (0-6); Lymphocyte % 4.3 % (25-47); Nucleated Red Blood Cells % 0
[2017-10-02] MEDS: Levothyroxine TAB* 100 MCG TAB PO SCH (06:20)
[2017-10-02] MEDS: guaiFENesin ER TAB 600 MG PO SCH ×2 (06:20→16:53)
[2017-10-02] MEDS: Mometasone/Formoter 200/5 MDI INH SCH ×2 (07:35→19:42)
[2017-10-02] MEDS: Metoprolol Tartrate TAB* 25 MG PO SCH ×2 (07:41→20:55)
[2017-10-02] MEDS: Spironolactone TAB* 25 MG PO SCH (07:41)
[2017-10-02] MEDS: Atorvastatin* 40 MG TAB PO SCH (07:41)
[2017-10-02] MEDS: Cholecalciferol TAB* 1000 UNITS PO SCH (07:41)
[2017-10-02] MEDS: Tamsulosin CAP* 0.4 MG PO SCH (07:41)
[2017-10-02] MEDS: Vancomycin(*) 1,000 MG in NS 0.9% 250 ML* 250 ML IVPB SCH (07:47)
--- NOTE | 2017-10-02 08:02 | PN ---
Subjective Date of Service: 10/02/17 Interval History: Patient seen and examined at bedside. Denies fever, chills, shortness of breath , chest discomfort, N/V/D. Pt states that pain is controlled. Pt states that he is on 3-5 L O2 at home and is on 2 L via NC here. Tele: Sinus rhythm to Sinus tach, rate 80-110's. Family History: Unchanged from Admission Social History: Unchanged from Admission Past Medical History: Unchanged from Admission Objective Active Medications: Acetaminophen (Tylenol Tab*) 325 mg PO Q6H PRN Reason: PAIN Albuterol (Ventolin 2.5 Mg/3 Ml Neb.Christy*) 2.5 mg INH Q4H PRN Reason: SOB/ WHEEZING Allopurinol (Zyloprim Tab*) 600 mg PO DAILY GISELLA Atorvastatin Calcium (Lipitor*) 40 mg PO DAILY GISELLA Bisacodyl (Dulcolax Supp*) 10 mg CO DAILY PRN Reason: CONSTIPATION Cholecalciferol (Vitamin D Tab*) 1,000 units PO DAILY [facility] Dextrose (D50w Syringe 50 Ml*) 12.5 gm IV PUSH .FOR FS < 60 - SS PRN Reason: FS < 60 Docusate Sodium (Colace Cap*) 100 mg PO DAILY PRN Reason: CONSTIPATION Guaifenesin (Mucinex*) 600 mg PO Q12H GISELLA Vancomycin HCl 1,000 mg/ (Sodium Chloride) 250 mls @ 166.667 mls/hr IVPB Q24H GISELLA Hydromorphone HCl (Dilaudid Director Of Acc[employer]*) 20 mg in 20 mls @ 0 mls/hr [employer] .change Q24H GISELLA; Per Protocol Insulin Glargine (Lantus(*)) 44 units SUBCUT BEDTIME GISELLA Insulin Human Lispro (Humalog*) 0 units SUBCUT AC GISELLA Levothyroxine Sodium (Synthroid Tab*) 200 mcg PO DAILY@0600 GISELLA Lorazepam (Ativan Tab(*)) 1 mg PO Q6H PRN Reason: ANXIETY Melatonin (Melatonin (Nf)) 3 mg PO BEDTIME PRN; Protocol Reason: Sleep Metoprolol Tartrate (Lopressor Tab*) 25 mg PO BID GISELLA Mometasone Furoate/Formoterol Fumar (Dulera 200/5 Mdi*) 2 puff INH BID GISELLA Naloxone HCl (Narcan*) 0.08 mg IV Q2M PRN Reason: severe induced resp depression Stop: 10/02/17 10:23 Nystatin (Nystatin Cream*) 1 applic TOPICAL BID [facility] Oxycodone HCl (Roxycodone Tab*) 10 mg PO Q4H PRN Reason: PAIN - SEVERE Pharmacy Consult (Vancomycin Per Pharmacy*) 1 note FOLLOW UP .VANC PER PHARMACY [facility] Polyethylene Glycol/Electrolytes (Miralax*) 17 gm PO BID [facility] Senna (Senokot Tab*) 1 tab PO BEDTIME PRN Reason: CONSTIPATION Simethicone (Mylicon Tab*) 80 mg PO Q8H PRN Reason: NAUSEA Spironolactone (Aldactone Tab*) 50 mg PO DAILY [facility] Tamsulosin HCl (Flomax Cap*) 0.4 mg PO DAILY [facility] Vital Signs - 8 hr 10/02/17 10/02/17 10/02/17 00:00 00:02 00:07 Temperature 99.1 F Pulse Rate 89 90 86 Respiratory 17 20 17 Rate Blood Pressure 104/85 (mmHg) O2 Sat by Pulse 98 96 99 Oximetry 10/02/17 10/02/17 10/02/17 01:00 02:00 02:01 Temperature Pulse Rate 80 78 78 Respiratory 19 23 19 Rate Blood Pressure 136/73 142/67 (mmHg) O2 Sat by Pulse 96 95 94 Oximetry 10/02/17 10/02/17 10/02/17 03:00 04:00 05:00 Temperature 97.9 F Pulse Rate 78 92 Respiratory 20 14 17 Rate Blood Pressure 130/71 133/88 (mmHg) O2 Sat by Pulse 93 96 Oximetry 10/02/17 10/02/17 10/02/17 05:04 06:00 06:02 Temperature Pulse Rate 91 86 85 Respiratory 17 22 19 Rate Blood Pressure 125/83 150/89 (mmHg) O2 Sat by Pulse 96 96 95 Oximetry 10/02/17 10/02/17 10/02/17 07:00 07:01 07:02 Temperature Pulse Rate 85 88 Respiratory 9 19 19 Rate Blood Pressure 147/86 (mmHg) O2 Sat by Pulse 95 96 Oximetry 10/02/17 10/02/17 07:36 07:39 Temperature 98.9 F Pulse Rate 90 Respiratory 17 Rate Blood Pressure (mmHg) O2 Sat by Pulse 97 Oximetry Oxygen Devices in Use Now: Nasal Cannula - 2L Appearance: NAD, laying in bed Ears/Nose/Mouth/Throat: Mucous Membranes Moist Respiratory: Symmetrical Chest Expansion and Respiratory Effort, Clear to Auscultation - , diminished Cardiovascular: NL Sounds; No Murmurs; No JVD, RRR Abdominal: NL Sounds; No Tenderness; No Distention Skin: No Rash or Ulcers, - - Dressing to left LE clean, dry and intact Neurological: Alert and Oriented x 3, NL Muscle Strength and Tone Lines/Tubes/Other Access: Clean, Dry and Intact Peripheral IV - site benign Nutrition: Taking PO's Result Diagrams: 10/02/17 16:04 10/02/17 16:04 Assess/Plan/Problems-Billing Assessment: Mr. Anderson is a 51 yo male PMH diastolic CHF, morbid obesity, severe pHTN, IDDM, Afib on Xarelto, MRSA bacteremia and left ankle abscess/OM/charcot foot s/p long course of outpatient abx who p/w fall, tachycardia and swollen left ankle with MRSA bacteremia and osteomyelitis of left foot now s/p a transtibial amputation. - Patient Problems (1) Foot osteomyelitis, left Code(s): M86.9 - OSTEOMYELITIS, UNSPECIFIED SNOMED Code(s): 0069853603335397 Comment: - s/p transtibial amputation, POD #1 - Ortho and ID following - Continue pain meds prn with bowel regimen - Continue vancomycin (2) Sepsis Comment: - Improving (afebrile, mild tachycardia and continues to have leukocytosis) - Secondary to MRSA bacteremia from left foot osteomyelitis and cellulitis (3) MRSA (methicillin resistant Staphylococcus aureus) Code(s): A49.02 - METHICILLIN RESIS STAPH INFECTION, UNSP SITE SNOMED Code(s) : 024154272 Comment: - MRSA bacteremia and wound infection - No evidence of vegetation noted on TTE - ID following, appreciate input - Continue vancomycin (4) Hyperkalemia Code(s): E87.5 - HYPERKALEMIA SNOMED Code(s): 53296461 Comment: - K+ 5.5 today, up from 5.2 yesterday - No EKG changes - Suspect secondary to CKD and spironolactone - Will give dose of kayexalate today and recheck in the AM (5) Hyponatremia Code(s): E87.1 - HYPO-OSMOLALITY AND HYPONATREMIA SNOMED Code(s): 37650895 Comment: - Down to 127 this AM (got IVF for surgery) - Continue diuretics for now and recheck in the AM (6) Chronic respiratory failure Code(s): J96.10 - CHRONIC RESPIRATORY FAILURE, UNSP W HYPOXIA OR HYPERCAPNIA SNOMED Code(s): 51447356 Comment: - History COPD, obesity hypoventilation syndrome, and history of severe pulmonary hypertension - Stable on 1-2 L NC - Had severe pHTN 61 mm Hg on 07/24/17 but Pt has since lost 175lbs in last few months with aggrresive diuresis and dietary modification. TTE was unable to estimate PASP this time, but TR is improved, suggesting lower R-sided pressures (7) Diastolic CHF, chronic Code(s): I50.32 - CHRONIC DIASTOLIC (CONGESTIVE) HEART FAILURE SNOMED Code(s) : 453106551 Comment: - Appears to be euvolemic at this time - Lost 175 lbs over last few months with aggressive diuresis and diet modification - Continue to hold Torsemide, continue spironolactone - Daily weights and strict I+O's (8) Hypertension Code(s): I10 - ESSENTIAL (PRIMARY) HYPERTENSION SNOMED Code(s): 37580630 Comment: - Mostly normotensive - Continue metoprolol and spironolactone (9) Atrial fibrillation Code(s): I48.91 - UNSPECIFIED ATRIAL FIBRILLATION SNOMED Code(s): 82458466 Comment: - Sinus rhythm and rate controlled at this time - Continue metoprolol 25mg BID - Resume xarelto at discharge per ortho, SQ heparin for now (10) Pulmonary embolism Code(s): I26.99 - OTHER PULMONARY EMBOLISM WITHOUT ACUTE COR PULMONALE SNOMED Code(s): 29007750 Comment: - Pt has h/o DVT/PE. - Resume xarelto at discharge per ortho, SQ heparin for now. (11) Diabetes mellitus Code(s): E11.9 - TYPE 2 DIABETES MELLITUS WITHOUT COMPLICATIONS SNOMED Code(s) : 52500138 Comment: - Glucose 170-210's - Continue Lantus 44 qhs and SSI coverage for meals - Resume Lispro 10 units AC (12) CKD (chronic kidney disease) stage 3, GFR 30-59 ml/min Code(s): N18.3 - CHRONIC KIDNEY DISEASE, STAGE 3 (MODERATE) SNOMED Code(s): 109691733 Comment: - Creatine at baseline, stable. (13) Anemia Code(s): D64.9 - ANEMIA, UNSPECIFIED SNOMED Code(s): 570481913 Comment: - Stable, chronic. 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 - Would consider biopsy for chaning size or TTP (recommended per radiology report) (15) Hypothyroid Code(s): E03.9 - HYPOTHYROIDISM, UNSPECIFIED SNOMED Code(s): 39132066 Comment: - TSH 08/2017, 4.56 - Continue levothryoxine (16) Morbid obesity Code(s): E66.01 - MORBID (SEVERE) OBESITY DUE TO EXCESS CALORIES SNOMED Code(s ): 861690071 Comment: - BMI ~ 47 (17) Gout Code(s): M10.9 - GOUT, UNSPECIFIED SNOMED Code(s): 10718073 Comment: - Continue allopurinol 600mg daily (18) DVT prophylaxis Code(s): EBS3580 - SNOMED Code(s): 545056656 Comment: -SCDs and SQ Heaprin, resume Xarelto at discharge per ortho (19) Full code status Code(s): Z78.9 - OTHER SPECIFIED HEALTH STATUS SNOMED Code(s): 961063868 Status and Disposition: Inpatient. Discharge to home when medically stable vs [facility].
[2017-10-02] MEDS ORDERED: Sodium Polystyrene ORAL.SOL* 15 GM/60 ML BTL PO ONE (08:47)
[2017-10-02] MEDS: Insulin LISPRO* 1 UNITS UNIT SUBCUT SCH ×4 (09:02→17:13)
[2017-10-02] MEDS: Nystatin CREAM* 15 GM TUBE TOPICAL SCH ×2 (09:10→20:59)
[2017-10-02] MEDS: Polyethylene Glycol 3350* 17 GM PACKET PO SCH ×2 (09:22→20:59)
[2017-10-02] MEDS: Allopurinol TAB* 300 MG PO SCH (10:03)
[2017-10-02] MEDS: HYDROmorphone PCA* 20 MG/20 ML PCA.SYRING PCA SCH (12:55)
--- NOTE | 2017-10-02 15:35 | PN ---
Progress Note - Progress Note Date of Service: 10/02/17 SOAP: Subjective: []Patient seen at bedside. He denies fever, chills, CP, SOB. Pain with movement of LLE, no pain at rest. Objective: [] Vital Signs Temp 97.9 F 10/02/17 13:46 Pulse 91 10/02/17 13:46 Resp 18 10/02/17 13:58 BP 150/69 10/02/17 13:46 Pulse Ox 98 10/02/17 13:58 Intake & Output 10/01/17 10/02/17 10/02/17 18:59 06:59 18:59 Intake Total 2550 2286 600 Output Total 1999 1755 1200 Balance 550 531 -600 Weight 347 lb 7.176 oz Intake: IV Fluids 1650 156 LR 1400 NS (0.9%) 156 VANCOMYACIN 250 IVPB 260 ABX - VANCOMYCIN 260 Oral 900 2130 340 Output: Urine 1999 1755 1200 Other: Estimated Stool Amount Medium Laboratory Last Values WBC 17.7 10^3/ul (3.5-10.8) H 10/02/17 05:00 RBC 3.94 10^6/ul (4.0-5.4) L 10/02/17 05:00 Hgb 10.3 g/dl (14.0-18.0) L 10/02/17 05:00 Hct 32 % (42-52) L 10/02/17 05:00 MCV 82 fL (80-94) 10/02/17 05:00 MCH 26 pg (27-31) L 10/02/17 05:00 MCHC 32 g/dl (31-36) 10/02/17 05:00 RDW 17 % (10.5-15) H 10/02/17 05:00 Plt Count 624 10^3/ul (150-450) H 10/02/17 05:00 MPV 6.9 um3 (7.4-10.4) L 10/02/17 05:00 Neut % (Auto) 86.4 % (38-83) H 10/02/17 05:00 Lymph % (Auto) 4.3 % (25-47) L 10/02/17 05:00 [place]rell % (Auto) 6.2 % (0-7) 10/02/17 05:00 Eos % (Auto) 2.5 % (0-6) 10/02/17 05:00 Baso % (Auto) 0.6 % (0-2) 10/02/17 05:00 Absolute Neuts (auto) 15.3 10^3/ul (1.5-7.7) H 10/02/17 05:00 Absolute Lymphs (auto) 0.8 10^3/ul (1.0-4.8) L 10/02/17 05:00 Absolute Monos (auto) 1.1 10^3/ul (0-0.8) H 10/02/17 05:00 Absolute Eos (auto) 0.4 10^3/ul (0-0.6) 10/02/17 05:00 Absolute Basos (auto) 0.1 10^3/ul (0-0.2) 10/02/17 05:00 Absolute Nucleated RBC 0 10^3/ul 10/02/17 05:00 Immature Gran % 4 % (0-9) 10/01/17 08:33 Neutrophils % 81 % (38-83) 10/01/17 08:33 Band Neutrophils % 1 % (0-8) 10/01/17 08:33 Lymphocytes % 4 % (25-47) L 10/01/17 08:33 Monocytes % 4 % (0-7) 10/01/17 08:33 Eosinophils % 6 % (0-6) 10/01/17 08:33 Basophils % 1 % (0-2) 10/01/17 08:33 Metamyelocytes % 1 % (0-2) 10/01/17 08:33 Myelocytes % 2 % (0-1) H 10/01/17 08:33 Nucleated RBC % 0 10/02/17 05:00 Abs Neuts (Manual) 12.6 10^3/ul (1.5-7.7) H 10/01/17 08:33 Abs Lymphs (Manual) 0.6 10^3/ul (1.0-4.8) L 10/01/17 08:33 Abs Monocytes (Manual) 0.6 10^3/ul (0-0.8) 10/01/17 08:33 Absolute Eos (Manual) 0.9 10^3/ul (0-0.6) H 10/01/17 08:33 Abs Basophils (Manual) 0.2 10^3/ul (0-0.2) 10/01/17 08:33 Normal RBC Morphology Normal (Normal) 10/01/17 08:33 INR (Anticoag Therapy) 1.17 (0.77-1.02) H 10/01/17 08:33 Sodium 127 mmol/L (139-145) L 10/02/17 05:00 Potassium 5.5 mmol/L (3.5-5.0) H 10/02/17 05:00 Chloride 99 mmol/L (101-111) L 10/02/17 05:00 Carbon Dioxide 26 mmol/L (22-32) 10/02/17 05:00 Anion Gap 2 mmol/L (2-11) 10/02/17 05:00 BUN 46 mg/dL (6-24) H 10/02/17 05:00 Creatinine 0.91 mg/dL (0.67-1.17) 10/02/17 05:00 Est GFR ( Amer) 112.5 (>60) 10/02/17 05:00 Est GFR (Non-Af Amer) 87.5 (>60) 10/02/17 05:00 BUN/Creatinine Ratio 50.5 (8-20) H 10/02/17 05:00 Glucose 177 mg/dL (70-100) H 10/02/17 05:00 POC Glucose (mg/dL) 216 mg/dL (70-100) H 10/01/17 22:03 Uric Acid 6.9 mg/dL (4.4-7.6) 09/28/17 08:54 Calcium 8.8 mg/dL (8.6-10.3) 10/02/17 05:00 Magnesium 1.9 mg/dL (1.9-2.7) 09/29/17 08:18 Total Bilirubin 0.60 mg/dL (0.2-1.0) 09/27/17 04:47 AST 50 U/L (13-39) H 09/27/17 04:47 ALT 78 U/L (7-52) H 09/27/17 04:47 Alkaline Phosphatase 359 U/L (34-104) H 09/27/17 04:47 C-Reactive Protein 151.32 mg/L (< 5.00) H 09/27/17 19:19 Total Protein 7.0 g/dL (6.4-8.9) 09/27/17 04:47 Albumin 2.7 g/dL (3.2-5.2) L 09/27/17 04:47 Globulin 4.3 g/dL (2-4) H 09/27/17 04:47 Albumin/Globulin Ratio 0.6 (1-3) L 09/27/17 04:47 Urine Color Yellow 09/27/17 04:47 Urine Appearance Clear 09/27/17 04:47 Urine pH 5.0 (5-9) 09/27/17 04:47 Ur Specific [place] 1.010 (1.010-1.030) 09/27/17 04:47 Urine Protein 1+(30 mg/dl) (Negative) A 09/27/17 04:47 Urine Ketones Negative (Negative) 09/27/17 04:47 Urine Blood 1+ (Negative) A 09/27/17 04:47 Urine Nitrate Negative (Negative) 09/27/17 04:47 Urine Bilirubin Negative (Negative) 09/27/17 04:47 Urine Urobilinogen Negative (Negative) 09/27/17 04:47 Ur Leukocyte Esterase Negative (Negative) 09/27/17 04:47 Urine WBC (Auto) Absent (Absent) 09/27/17 04:47 Urine RBC (Auto) Trace(0-2/hpf) (Absent) 09/27/17 04:47 Urine Bacteria Absent (Absent) 09/27/17 04:47 Urine Osmolality 384 mOsm/kg (150-1150) 09/28/17 12:08 Ur Random Sodium 37 mmol/L 09/28/17 12:08 Urine Glucose Negative (Negative) 09/27/17 04:47 Vancomycin Trough 14.7 mcg/mL 10/01/17 08:33 General: Well appearing, NAD LLE: Splint CDI. Padded proximal aspect due to discomfort, patient confirms comfort with padding placed. Thigh soft, nonerythematous, no skin breakdown Assessment: S/P left transtibial amp Plan: []NWB LLE keep Splint CDI PT/OT Heparin in house, resume home xarelto at [place]
[2017-10-02 16:23] LABS: Hematocrit 33 % (42-52); Hemoglobin 10.2 g/dl (14.0-18.0); Mean Corpuscular HGB Conc 31 g/dl (31-36); Mean Corpuscular Hemoglobin 26 pg (27-31); Mean Corpuscular Volume 83 fL (80-94); Platelet Count 602 10^3/ul (150-450); Red Blood Count 3.98 10^6/ul (4.0-5.4); Red Cell Distribution Width 17 % (10.5-15); White Blood Count 15.9 10^3/ul (3.5-10.8)
[2017-10-02 16:27] LABS: INR 1.17 (0.77-1.02)
[2017-10-02 16:37] LABS: EGFR Non-African American 85.3 (>60)
[2017-10-02 16:54] LABS: ABS Basophils 0.1 10^3/ul (0-0.2); ABS Eosinophils 0.4 10^3/ul (0-0.6); ABS Lymphocytes 0.7 10^3/ul (1.0-4.8); ABS Monocytes 0.9 10^3/ul (0-0.8); ABS Neutrophils 13.7 10^3/ul (1.5-7.7); ABS Nucleated RBC 0 10^3/ul; Eosinophil % 2.8 % (0-6); Lymphocyte % 4.4 % (25-47); Nucleated Red Blood Cells % 0
[2017-10-02] MEDS: Insulin GLARGINE(*) 1 UNITS UNIT SUBCUT SCH (20:55)
[2017-10-02] MEDS: Heparin VIAL(*) 5000 UNITS/ML VIAL (FIVE THOUSAND) SUBCUT SCH (20:56)
[2017-10-03] MEDS: Levothyroxine TAB* 100 MCG TAB PO SCH (05:27)
[2017-10-03] MEDS: Heparin VIAL(*) 5000 UNITS/ML VIAL (FIVE THOUSAND) SUBCUT SCH ×3 (05:28→21:40)
[2017-10-03] MEDS: guaiFENesin ER TAB 600 MG PO SCH ×2 (05:34→17:46)
[2017-10-03 07:10] LABS: Hematocrit 34 % (42-52); Hemoglobin 10.5 g/dl (14.0-18.0); Mean Corpuscular HGB Conc 31 g/dl (31-36); Mean Corpuscular Hemoglobin 26 pg (27-31); Mean Corpuscular Volume 83 fL (80-94); Mean Platelet Volume 6.7 um3 (7.4-10.4); Platelet Count 621 10^3/ul (150-450); Red Blood Count 4.04 10^6/ul (4.0-5.4); Red Cell Distribution Width 17 % (10.5-15); White Blood Count 16.1 10^3/ul (3.5-10.8)
[2017-10-03] MEDS: Vancomycin(*) 1,000 MG in NS 0.9% 250 ML* 250 ML IVPB SCH (07:47)
[2017-10-03 08:35] LABS: ABS Basophils 0.1 10^3/ul (0-0.2); ABS Eosinophils 0.6 10^3/ul (0-0.6); ABS Lymphocytes 0.9 10^3/ul (1.0-4.8); ABS Monocytes 1.1 10^3/ul (0-0.8); ABS Neutrophils 13.4 10^3/ul (1.5-7.7)
[2017-10-03 08:39] LABS: Monocytes % 7 % (0-7)
[2017-10-03] MEDS: Mometasone/Formoter 200/5 MDI INH SCH ×2 (08:47→21:30)
[2017-10-03] MEDS: Nystatin CREAM* 15 GM TUBE TOPICAL SCH ×2 (09:18→21:46)
[2017-10-03] MEDS: Metoprolol Tartrate TAB* 25 MG PO SCH ×2 (09:19→21:40)
[2017-10-03] MEDS: Atorvastatin* 40 MG TAB PO SCH (09:19)
[2017-10-03] MEDS: Insulin LISPRO* 1 UNITS UNIT SUBCUT SCH ×6 (09:19→17:52)
[2017-10-03] MEDS: Cholecalciferol TAB* 1000 UNITS PO SCH (09:19)
[2017-10-03] MEDS: Allopurinol TAB* 300 MG PO SCH (09:19)
[2017-10-03] MEDS: Spironolactone TAB* 25 MG PO SCH (09:19)
[2017-10-03] MEDS: Polyethylene Glycol 3350* 17 GM PACKET PO SCH ×2 (09:19→21:46)
[2017-10-03] MEDS: Tamsulosin CAP* 0.4 MG PO SCH (09:19)
--- NOTE | 2017-10-03 11:18 | PN ---
Progress Note - Progress Note Date of Service: 10/03/17 SOAP: Subjective: []Patient seen at bedside. He states he continues to have 8/10 pain in his LLE despite [employer] hydromorphone. Denies chest pain, shortness of breath, dizziness. Objective: [] Vital Signs Temp 98.4 F 10/03/17 11:11 Pulse 89 10/03/17 11:11 Resp 16 10/03/17 14:37 BP 114/63 10/03/17 11:11 Pulse Ox 98 10/03/17 11:11 Intake & Output 10/02/17 10/03/17 10/03/17 18:59 06:59 18:59 Intake Total 127 064 2917 Output Total 1550 1250 1375 Balance -950 -273 -335 Intake: IV Fluids 77 NS (0.9%) 77 IVPB 260 ABX - VANCOMYCIN 260 Oral 106 908 7987 Output: Urine 1550 1250 1375 Other: # Bowel Movements 0 Estimated Stool Amount Medium Large # Voids 1 Laboratory Last Values WBC 16.1 10^3/ul (3.5-10.8) H 10/03/17 06:51 RBC 4.04 10^6/ul (4.0-5.4) 10/03/17 06:51 Hgb 10.5 g/dl (14.0-18.0) L 10/03/17 06:51 Hct 34 % (42-52) L 10/03/17 06:51 MCV 83 fL (80-94) 10/03/17 06:51 MCH 26 pg (27-31) L 10/03/17 06:51 MCHC 31 g/dl (31-36) 10/03/17 06:51 RDW 17 % (10.5-15) H 10/03/17 06:51 Plt Count 621 10^3/ul (150-450) H 10/03/17 06:51 MPV 6.7 um3 (7.4-10.4) L 10/03/17 06:51 Neut % (Auto) Not Reportable 10/03/17 06:51 Lymph % (Auto) Not Reportable 10/03/17 06:51 [place] % (Auto) Not Reportable 10/03/17 06:51 Eos % (Auto) Not Reportable 10/03/17 06:51 Baso % (Auto) Not Reportable 10/03/17 06:51 Absolute Neuts (auto) 13.4 10^3/ul (1.5-7.7) H 10/03/17 06:51 Absolute Lymphs (auto) 0.9 10^3/ul (1.0-4.8) L 10/03/17 06:51 Absolute Monos (auto) 1.1 10^3/ul (0-0.8) H 10/03/17 06:51 Absolute Eos (auto) 0.6 10^3/ul (0-0.6) 10/03/17 06:51 Absolute Basos (auto) 0.1 10^3/ul (0-0.2) 10/03/17 06:51 Absolute Nucleated RBC Not Reportable 10/03/17 06:51 Immature Gran % 12 % (0-9) H 10/03/17 06:51 Neutrophils % 71 % (38-83) 10/03/17 06:51 Band Neutrophils % 1 % (0-8) 10/03/17 06:51 Lymphocytes % 5 % (25-47) L 10/03/17 06:51 Monocytes % 7 % (0-7) 10/03/17 06:51 Eosinophils % 5 % (0-6) 10/03/17 06:51 Basophils % 0 % (0-2) 10/03/17 06:51 Metamyelocytes % 3 % (0-2) H 10/03/17 06:51 Myelocytes % 8 % (0-1) H 10/03/17 06:51 Nucleated RBC % Not Reportable 10/03/17 06:51 Abs Neuts (Manual) 11.4 10^3/ul (1.5-7.7) H 10/03/17 06:51 Abs Lymphs (Manual) 0.8 10^3/ul (1.0-4.8) L 10/03/17 06:51 Abs Monocytes (Manual) 1.1 10^3/ul (0-0.8) H 10/03/17 06:51 Absolute Eos (Manual) 0.8 10^3/ul (0-0.6) H 10/03/17 06:51 Abs Basophils (Manual) 0 10^3/ul (0-0.2) 10/03/17 06:51 Normal RBC Morphology Not Reportable 10/03/17 06:51 Anisocytosis 1+ 10/03/17 06:51 INR (Anticoag Therapy) 1.17 (0.77-1.02) H 10/02/17 16:04 APTT 32.8 seconds (26.0-36.3) 10/02/17 16:04 Sodium 129 mmol/L (139-145) L 10/03/17 06:51 Potassium 4.7 mmol/L (3.5-5.0) 10/03/17 06:51 Chloride 97 mmol/L (101-111) L 10/03/17 06:51 Carbon Dioxide 28 mmol/L (22-32) 10/03/17 06:51 Anion Gap 4 mmol/L (2-11) 10/03/17 06:51 BUN 37 mg/dL (6-24) H 10/03/17 06:51 Creatinine 0.79 mg/dL (0.67-1.17) 10/03/17 06:51 Est GFR ( Amer) 132.5 (>60) 10/03/17 06:51 Est GFR (Non-Af Amer) 103.0 (>60) 10/03/17 06:51 BUN/Creatinine Ratio 46.8 (8-20) H 10/03/17 06:51 Glucose 142 mg/dL (70-100) H 10/03/17 06:51 POC Glucose (mg/dL) 160 mg/dL (70-100) H 10/03/17 11:38 Uric Acid 6.9 mg/dL (4.4-7.6) 09/28/17 08:54 Calcium 8.8 mg/dL (8.6-10.3) 10/03/17 06:51 Magnesium 1.9 mg/dL (1.9-2.7) 09/29/17 08:18 Total Bilirubin 0.60 mg/dL (0.2-1.0) 09/27/17 04:47 AST 50 U/L (13-39) H 09/27/17 04:47 ALT 78 U/L (7-52) H 09/27/17 04:47 Alkaline Phosphatase 359 U/L (34-104) H 09/27/17 04:47 C-Reactive Protein 151.32 mg/L (< 5.00) H 09/27/17 19:19 Total Protein 7.0 g/dL (6.4-8.9) 09/27/17 04:47 Albumin 2.7 g/dL (3.2-5.2) L 09/27/17 04:47 Globulin 4.3 g/dL (2-4) H 09/27/17 04:47 Albumin/Globulin Ratio 0.6 (1-3) L 09/27/17 04:47 Urine Color Yellow 09/27/17 04:47 Urine Appearance Clear 09/27/17 04:47 Urine pH 5.0 (5-9) 09/27/17 04:47 Ur Specific [place] 1.010 (1.010-1.030) 09/27/17 04:47 Urine Protein 1+(30 mg/dl) (Negative) A 09/27/17 04:47 Urine Ketones Negative (Negative) 09/27/17 04:47 Urine Blood 1+ (Negative) A 09/27/17 04:47 Urine Nitrate Negative (Negative) 09/27/17 04:47 Urine Bilirubin Negative (Negative) 09/27/17 04:47 Urine Urobilinogen Negative (Negative) 09/27/17 04:47 Ur Leukocyte Esterase Negative (Negative) 09/27/17 04:47 Urine WBC (Auto) Absent (Absent) 09/27/17 04:47 Urine RBC (Auto) Trace(0-2/hpf) (Absent) 09/27/17 04:47 Urine Bacteria Absent (Absent) 09/27/17 04:47 Urine Osmolality 384 mOsm/kg (150-1150) 09/28/17 12:08 Ur Random Sodium 37 mmol/L 09/28/17 12:08 Urine Glucose Negative (Negative) 09/27/17 04:47 Vancomycin Trough 14.7 mcg/mL 10/01/17 08:33 General: Well appearing, NAD LLE: Splint CDI. Thigh soft, nonerythematous, no skin breakdown Assessment: S/P left transtibial amp Plan: []NWB LLE keep Splint CDI PT/OT Per ID vancomycin goal tr 15-20, day 7/14 then doxycycline Heparin in house, resume home xarelto at [place] Need to wean from [employer] as soon as able to oral pain medications When medically ready to plan for PMRU or [place]
--- NOTE | 2017-10-03 11:34 | PN ---
Progress Note - Progress Note Date of Service: 10/03/17 SOAP: Subjective: CC: left ankle infection HPI: 51 year old man with chronic osteo left ankle and admitted with left ankle pain and swelling. Tolerated amputation. No fever, rash, or diarrhea. Objective: Vital Signs Temp 36.9 C 10/03/17 09:24 Pulse 94 10/03/17 09:24 Resp 18 10/03/17 09:24 BP 136/65 10/03/17 09:24 Pulse Ox 99 10/03/17 09:24 Intake & Output 10/02/17 10/03/17 10/03/17 18:59 06:59 18:59 Intake Total 600 977 200 Output Total 1550 1250 775 Balance -400 -476 -575 Intake: IV Fluids 77 NS (0.9%) 77 IVPB 260 ABX - VANCOMYCIN 260 Oral 340 900 200 Output: Urine 1550 1250 775 Other: # Bowel Movements 0 Estimated Stool Amount Medium Large # Voids 1 Gen:awake, no distress HEENT: no thrush Heart:RRR no murmur Lungs:CTA BL Abd:+BS NTND soft MSK: left leg amp wrapped Microbiology 10/01/17 10:09 Anaerobic Culture - Preliminary Wound - Left Leg 10/01/17 10:09 Gram Stain - Final Leg Left Wound Culture - Final Normal [place] 09/29/17 09:00 Aerobic Blood Culture - Preliminary Blood Venous No Growth Day 4 Anaerobic Blood Culture - Preliminary No Growth Day 4 09/29/17 08:18 Aerobic Blood Culture - Preliminary Blood Venous No Growth Day 4 Anaerobic Blood Culture - Preliminary No Growth Day 4 09/27/17 19:19 Aerobic Blood Culture - Final Blood Venous Staphylococcus Epidermidis Anaerobic Blood Culture - Final No Growth Day 5 Blood MRSA/MSSA (PCR) - Final Mrsa Negative S.aureus Negative 09/27/17 19:19 Aerobic Blood Culture - Final Blood Venous No Growth Day 5 Anaerobic Blood Culture - Final MRSA Blood MRSA/MSSA (PCR) - Final Mrsa Positive S.aureus Positive Assessment: 1. chronic osteomyelitis with cellulitis, myositis, and abscess due to MRSAs/p BKA 2. morbid obesity 3. MRSA bacteremia, 1/4 bottles, cleared; doubt endocarditis 4. diabetes with neuropathy Plan: 1. vancomycin goal tr 15-20, day 11/17 then doxycycline 35 minutes floor time >50% face to face with pt and discussing abx plans
[2017-10-03] MEDS: diPHENhydraMINE PO* 25 MG PO PRN (12:01)
--- NOTE | 2017-10-03 17:29 | PN ---
Subjective Date of Service: 10/03/17 Interval History: Patient seen and examined at bedside. Denies fever, chills, shortness of breath , chest discomfort, N/V/D. Pt states that his pain is controlled. He also reports back and generalized pain in addition to his left LE pain. Family History: Unchanged from Admission Social History: Unchanged from Admission Past Medical History: Unchanged from Admission Objective Active Medications: Acetaminophen (Tylenol Tab*) 325 mg PO Q6H PRN Reason: PAIN Albuterol (Ventolin 2.5 Mg/3 Ml Neb.Christy*) 2.5 mg INH Q4H PRN Reason: SOB/ WHEEZING Allopurinol (Zyloprim Tab*) 600 mg PO DAILY [facility] Atorvastatin Calcium (Lipitor*) 40 mg PO DAILY [facility] Bisacodyl (Dulcolax Supp*) 10 mg UT DAILY PRN Reason: CONSTIPATION Cholecalciferol (Vitamin D Tab*) 1,000 units PO DAILY [facility] Dextrose (D50w Syringe 50 Ml*) 12.5 gm IV PUSH .FOR FS < 60 - SS PRN Reason: FS < 60 Diphenhydramine HCl (Benadryl Po*) 25 mg PO Q6H PRN Reason: ITCHING Docusate Sodium (Colace Cap*) 100 mg PO DAILY PRN Reason: CONSTIPATION Guaifenesin (Mucinex*) 600 mg PO Q12H [facility] Heparin Sodium (Porcine) (Heparin Vial(*)) 5,000 units SUBCUT Q8HR [facility] Vancomycin HCl 1,000 mg/ (Sodium Chloride) 250 mls @ 166.667 mls/hr IVPB Q24H [facility] Hydromorphone HCl (Dilaudid Dip Painter*) 20 mg in 20 mls @ 0 mls/hr 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 .change Q24H [facility]; Per Protocol Insulin Glargine (Lantus(*)) 44 units SUBCUT BEDTIME [facility] Insulin Human Lispro (Humalog*) 0 units SUBCUT AC [facility] Insulin Human Lispro (Humalog*) 10 units SUBCUT AC [facility] Levothyroxine Sodium (Synthroid Tab*) 200 mcg PO DAILY@0600 [facility] Lorazepam (Ativan Tab(*)) 1 mg PO Q6H PRN Reason: ANXIETY Melatonin (Melatonin (Nf)) 3 mg PO BEDTIME PRN; Protocol Reason: Sleep Metoprolol Tartrate (Lopressor Tab*) 25 mg PO BID [facility] Mometasone Furoate/Formoterol Fumar (Dulera 200/5 Mdi*) 2 puff INH BID [facility] Nystatin (Nystatin Cream*) 1 applic TOPICAL BID [facility] Oxycodone HCl (Roxycodone Tab*) 10 mg PO Q4H PRN Reason: PAIN - SEVERE Pharmacy Consult (Vancomycin Per Pharmacy*) 1 note FOLLOW UP .VANC PER PHARMACY [facility] Polyethylene Glycol/Electrolytes (Miralax*) 17 gm PO BID [facility] Senna (Senokot Tab*) 1 tab PO BEDTIME PRN Reason: CONSTIPATION Simethicone (Mylicon Tab*) 80 mg PO Q8H PRN Reason: NAUSEA Spironolactone (Aldactone Tab*) 50 mg PO DAILY [facility] Tamsulosin HCl (Flomax Cap*) 0.4 mg PO DAILY [facility] Vital Signs - 8 hr 10/03/17 10/03/17 10/03/17 09:24 11:11 12:01 Temperature 98.4 F 98.4 F Pulse Rate 94 89 Respiratory 18 16 18 Rate Blood Pressure 136/65 114/63 (mmHg) O2 Sat by Pulse 99 98 Oximetry 10/03/17 10/03/17 14:37 15:09 Temperature 98.6 F Pulse Rate 75 Respiratory 16 18 Rate Blood Pressure 128/74 (mmHg) O2 Sat by Pulse 98 Oximetry Oxygen Devices in Use Now: Nasal Cannula - 1L Appearance: NAD, laying in bed Ears/Nose/Mouth/Throat: Mucous Membranes Moist Respiratory: Symmetrical Chest Expansion and Respiratory Effort, Clear to Auscultation - , diminished Cardiovascular: NL Sounds; No Murmurs; No JVD, RRR Abdominal: NL Sounds; No Tenderness; No Distention Extremities: No Edema Skin: No Rash or Ulcers Neurological: Alert and Oriented x 3, NL Muscle Strength and Tone Lines/Tubes/Other Access: Clean, Dry and Intact Peripheral IV - site benign Nutrition: Taking PO's Result Diagrams: 10/03/17 06:51 10/03/17 06:51 Additional Lab and Data: Vital Signs: Temp Pulse Resp BP Pulse Ox 97.2 F 81 20 144/76 99 10/01/17 11:09 10/01/17 12:31 10/01/17 13:28 10/01/17 12:31 10/01/17 12:31 Microbiology and Other Data: . Assess/Plan/Problems-Billing Assessment: Mr. Anderson is a 51 yo male PMH diastolic CHF, morbid obesity, severe pHTN, IDDM, Afib on Xarelto, MRSA bacteremia and left ankle abscess/OM/charcot foot s/p long course of outpatient abx who p/w fall, tachycardia and swollen left ankle with MRSA bacteremia and osteomyelitis of left foot now s/p a transtibial amputation. - Patient Problems (1) Foot osteomyelitis, left Code(s): M86.9 - OSTEOMYELITIS, UNSPECIFIED SNOMED Code(s): 7903374482940954 Comment: - s/p transtibial amputation, POD #2 - Ortho and ID following - Continue pain meds prn with bowel regimen - Continue vancomycin (2) Sepsis Comment: - Improving (afebrile, tachycardia resolved and continues to have leukocytosis) - Secondary to MRSA bacteremia from left foot osteomyelitis and cellulitis (3) MRSA (methicillin resistant Staphylococcus aureus) Code(s): A49.02 - METHICILLIN RESIS STAPH INFECTION, UNSP SITE SNOMED Code(s) : 136389906 Comment: - MRSA bacteremia and wound infection - No evidence of vegetation noted on TTE - ID following, appreciate input - Continue vancomycin (4) Hyperkalemia Code(s): E87.5 - HYPERKALEMIA SNOMED Code(s): 66938764 Comment: - Resolved after kayexalate - Suspect secondary to CKD and spironolactone (5) Hyponatremia Code(s): E87.1 - HYPO-OSMOLALITY AND HYPONATREMIA SNOMED Code(s): 12434779 Comment: - Improving 127 this AM (got IVF for surgery) - Continue diuretics for now and recheck in the AM (6) Chronic respiratory failure Code(s): J96.10 - CHRONIC RESPIRATORY FAILURE, UNSP W HYPOXIA OR HYPERCAPNIA SNOMED Code(s): 45904141 Comment: - History COPD, obesity hypoventilation syndrome, and history of severe pulmonary hypertension - Stable on 1-2 L NC - Had severe pHTN 61 mm Hg on 07/24/17 but Pt has since lost 175lbs in last few months with aggrresive diuresis and dietary modification. TTE was unable to estimate PASP this time, but TR is improved, suggesting lower R-sided pressures (7) Diastolic CHF, chronic Code(s): I50.32 - CHRONIC DIASTOLIC (CONGESTIVE) HEART FAILURE SNOMED Code(s) : 066711646 Comment: - Appears to be euvolemic at this time - Lost 175 lbs over last few months with aggressive diuresis and diet modification - Continue to hold Torsemide, continue spironolactone - Daily weights and strict I+O's (8) Hypertension Code(s): I10 - ESSENTIAL (PRIMARY) HYPERTENSION SNOMED Code(s): 66036232 Comment: - Normotensive - Continue metoprolol and spironolactone (9) Atrial fibrillation Code(s): I48.91 - UNSPECIFIED ATRIAL FIBRILLATION SNOMED Code(s): 26982443 Comment: - Sinus rhythm and rate controlled at this time - Continue metoprolol 25mg BID - Resume xarelto at discharge per ortho, SQ heparin for now (10) Pulmonary embolism Code(s): I26.99 - OTHER PULMONARY EMBOLISM WITHOUT ACUTE COR PULMONALE SNOMED Code(s): 24389550 Comment: - Pt has h/o DVT/PE. - Resume xarelto at discharge per ortho, SQ heparin for now. (11) Diabetes mellitus Code(s): E11.9 - TYPE 2 DIABETES MELLITUS WITHOUT COMPLICATIONS SNOMED Code(s) : 03907665 Comment: - Glucose 140-240's - Continue Lantus 44 qhs, SSI coverage, and Lispro 10 units AC (12) CKD (chronic kidney disease) stage 3, GFR 30-59 ml/min Code(s): N18.3 - CHRONIC KIDNEY DISEASE, STAGE 3 (MODERATE) SNOMED Code(s): 422512631 Comment: - Creatine at baseline, stable. (13) Anemia Code(s): D64.9 - ANEMIA, UNSPECIFIED SNOMED Code(s): 020370822 Comment: - Stable, chronic. 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 - Would consider biopsy for chaning size or TTP (recommended per radiology report) (15) Hypothyroid Code(s): E03.9 - HYPOTHYROIDISM, UNSPECIFIED SNOMED Code(s): 32257305 Comment: - TSH 08/2017, 4.56 - Continue levothryoxine (16) Morbid obesity Code(s): E66.01 - MORBID (SEVERE) OBESITY DUE TO EXCESS CALORIES SNOMED Code(s ): 211942388 Comment: - BMI ~ 47 (17) Gout Code(s): M10.9 - GOUT, UNSPECIFIED SNOMED Code(s): 30539699 Comment: - Continue allopurinol 600mg daily (18) DVT prophylaxis Code(s): HUF2225 - SNOMED Code(s): 558162068 Comment: -SCDs and SQ Heaprin, resume Xarelto at discharge per ortho (19) Full code status Code(s): Z78.9 - OTHER SPECIFIED HEALTH STATUS SNOMED Code(s): 459358498 Status and Disposition: Inpatient. Discharge when medically stable PMRU vs [facility].
[2017-10-03] MEDS: HYDROmorphone PCA* 20 MG/20 ML PCA.SYRING PCA SCH (21:11)
[2017-10-03] MEDS: Insulin GLARGINE(*) 1 UNITS UNIT SUBCUT SCH (21:40)
[2017-10-04] MEDS: Heparin VIAL(*) 5000 UNITS/ML VIAL (FIVE THOUSAND) SUBCUT SCH ×3 (05:26→22:31)
[2017-10-04] MEDS: Levothyroxine TAB* 100 MCG TAB PO SCH (05:26)
[2017-10-04] MEDS: guaiFENesin ER TAB 600 MG PO SCH ×2 (05:26→15:29)
[2017-10-04] MEDS: diPHENhydraMINE PO* 25 MG PO PRN (05:38)
[2017-10-04] MEDS: Mometasone/Formoter 200/5 MDI INH SCH ×2 (09:06→20:30)
[2017-10-04] MEDS: Polyethylene Glycol 3350* 17 GM PACKET PO SCH ×2 (09:21→22:20)
[2017-10-04] MEDS: Insulin LISPRO* 1 UNITS UNIT SUBCUT SCH ×6 (09:21→17:41)
[2017-10-04] MEDS: Allopurinol TAB* 300 MG PO SCH (09:22)
[2017-10-04] MEDS: Atorvastatin* 40 MG TAB PO SCH (09:22)
[2017-10-04] MEDS: Spironolactone TAB* 25 MG PO SCH (09:22)
[2017-10-04] MEDS: Tamsulosin CAP* 0.4 MG PO SCH (09:22)
[2017-10-04] MEDS: Metoprolol Tartrate TAB* 25 MG PO SCH ×2 (09:22→22:30)
[2017-10-04] MEDS: Cholecalciferol TAB* 1000 UNITS PO SCH (09:22)
[2017-10-04] MEDS: Nystatin CREAM* 15 GM TUBE TOPICAL SCH ×2 (09:22→22:35)
[2017-10-04 10:08] LABS: Hematocrit 34 % (42-52); Hemoglobin 10.6 g/dl (14.0-18.0); Mean Corpuscular HGB Conc 31 g/dl (31-36); Mean Corpuscular Hemoglobin 26 pg (27-31); Mean Corpuscular Volume 83 fL (80-94); Mean Platelet Volume 6.5 um3 (7.4-10.4); Platelet Count 613 10^3/ul (150-450); Red Blood Count 4.11 10^6/ul (4.0-5.4); Red Cell Distribution Width 17 % (10.5-15); White Blood Count 16.1 10^3/ul (3.5-10.8)
[2017-10-04 10:09] LABS: ABS Basophils 0.1 10^3/ul (0-0.2); ABS Eosinophils 0.8 10^3/ul (0-0.6); ABS Neutrophils 13.1 10^3/ul (1.5-7.7); ABS Nucleated RBC 0 10^3/ul; Eosinophil % 5.1 % (0-6); Lymphocyte % 6.5 % (25-47); Nucleated Red Blood Cells % 0
[2017-10-04 10:33] LABS: Monocytes % 3 % (0-7)
[2017-10-04] MEDS: Vancomycin(*) 1,000 MG in NS 0.9% 250 ML* 250 ML IVPB SCH (10:54)
[2017-10-04 10:55] LABS: EGFR Non-African American 93.4 (>60)
--- NOTE | 2017-10-04 12:54 | PN ---
Subjective Date of Service: 10/04/17 Interval History: Patient seen and examined at bedside. Denies fever, chills, shortness of breath , chest discomfort, N/V/D. Pt states that he has an occasional itchy area to his scrotum, per his they noticed a red area with white spots today. Pt also reports right shoulder pain, she states he fell on his right arm when he fell. Family History: Unchanged from Admission Social History: Unchanged from Admission Past Medical History: Unchanged from Admission Objective Active Medications: Acetaminophen (Tylenol Tab*) 325 mg PO Q6H PRN Reason: PAIN Albuterol (Ventolin 2.5 Mg/3 Ml Neb.Christy*) 2.5 mg INH Q4H PRN Reason: SOB/ WHEEZING Allopurinol (Zyloprim Tab*) 600 mg PO DAILY [facility] Atorvastatin Calcium (Lipitor*) 40 mg PO DAILY [facility] Bisacodyl (Dulcolax Supp*) 10 mg SD DAILY PRN Reason: CONSTIPATION Cholecalciferol (Vitamin D Tab*) 1,000 units PO DAILY [facility] Dextrose (D50w Syringe 50 Ml*) 12.5 gm IV PUSH .FOR FS < 60 - SS PRN Reason: FS < 60 Diphenhydramine HCl (Benadryl Po*) 25 mg PO Q6H PRN Reason: ITCHING Docusate Sodium (Colace Cap*) 100 mg PO DAILY PRN Reason: CONSTIPATION Guaifenesin (Mucinex*) 600 mg PO Q12H [facility] Heparin Sodium (Porcine) (Heparin Vial(*)) 5,000 units SUBCUT Q8HR [facility] Vancomycin HCl 1,000 mg/ (Sodium Chloride) 250 mls @ 166.667 mls/hr IVPB Q24H [facility] Hydromorphone HCl (Dilaudid Butcher'S Assistant*) 20 mg in 20 mls @ 0 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/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 .change Q24H [facility]; Per Protocol Insulin Glargine (Lantus(*)) 44 units SUBCUT BEDTIME [facility] Insulin Human Lispro (Humalog*) 0 units SUBCUT AC [facility] Insulin Human Lispro (Humalog*) 10 units SUBCUT AC [facility] Levothyroxine Sodium (Synthroid Tab*) 200 mcg PO DAILY@0600 [facility] Lorazepam (Ativan Tab(*)) 1 mg PO Q6H PRN Reason: ANXIETY Melatonin (Melatonin (Nf)) 3 mg PO BEDTIME PRN; Protocol Reason: Sleep Metoprolol Tartrate (Lopressor Tab*) 25 mg PO BID [facility] Mometasone Furoate/Formoterol Fumar (Dulera 200/5 Mdi*) 2 puff INH BID [facility] Nystatin (Nystatin Cream*) 1 applic TOPICAL BID [facility] Oxycodone HCl (Roxycodone Tab*) 10 mg PO Q4H PRN Reason: PAIN - SEVERE Pharmacy Consult (Vancomycin Per Pharmacy*) 1 note FOLLOW UP .VANC PER PHARMACY [facility] Polyethylene Glycol/Electrolytes (Miralax*) 17 gm PO BID [facility] Senna (Senokot Tab*) 1 tab PO BEDTIME PRN Reason: CONSTIPATION Simethicone (Mylicon Tab*) 80 mg PO Q8H PRN Reason: NAUSEA Spironolactone (Aldactone Tab*) 50 mg PO DAILY [facility] Tamsulosin HCl (Flomax Cap*) 0.4 mg PO DAILY [facility] Vital Signs - 8 hr 10/04/17 10/04/17 10/04/17 05:38 06:34 07:22 Temperature 98.6 F Pulse Rate 85 Respiratory 17 17 16 Rate Blood Pressure 113/68 (mmHg) O2 Sat by Pulse 97 Oximetry 10/04/17 07:37 Temperature Pulse Rate Respiratory 16 Rate Blood Pressure (mmHg) O2 Sat by Pulse 97 Oximetry Oxygen Devices in Use Now: Nasal Cannula - 1L Appearance: NAD, laying in bed Ears/Nose/Mouth/Throat: Mucous Membranes Moist Respiratory: Symmetrical Chest Expansion and Respiratory Effort, Clear to Auscultation Cardiovascular: NL Sounds; No Murmurs; No JVD, RRR Abdominal: NL Sounds; No Tenderness; No Distention Extremities: - - Tenderness to palpation to right shoulder Skin: - - Dressing to left LE clean, dry and intact. There is an area about the size of a quarter on the right side of his scrotum with red granulation tissue and white spots, no drainage seen Neurological: Alert and Oriented x 3, NL Muscle Strength and Tone Lines/Tubes/Other Access: Clean, Dry and Intact Peripheral IV - site benign Nutrition: Taking PO's Result Diagrams: 10/04/17 09:54 10/04/17 09:54 Additional Lab and Data: Vital Signs: Temp Pulse Resp BP Pulse Ox 97.2 F 81 20 144/76 99 10/01/17 11:09 10/01/17 12:31 10/01/17 13:28 10/01/17 12:31 10/01/17 12:31 Microbiology and Other Data: . Assess/Plan/Problems-Billing Assessment: Mr. Anderson is a 51 yo male PMH diastolic CHF, morbid obesity, severe pHTN, IDDM, Afib on Xarelto, MRSA bacteremia and left ankle abscess/OM/charcot foot s/p long course of outpatient abx who p/w fall, tachycardia and swollen left ankle with MRSA bacteremia and osteomyelitis of left foot now s/p a transtibial amputation. - Patient Problems (1) Foot osteomyelitis, left Code(s): M86.9 - OSTEOMYELITIS, UNSPECIFIED SNOMED Code(s): 9314649862603657 Comment: - s/p transtibial amputation, POD #3 - Ortho and ID following - Continue pain meds prn with bowel regimen - Continue vancomycin, day 8/14. Will change to doxy after 14 days of vanco (2) Sepsis Comment: - Improving (afebrile, tachycardia resolved and continues to have leukocytosis) - Secondary to MRSA bacteremia from left foot osteomyelitis and cellulitis (3) MRSA (methicillin resistant Staphylococcus aureus) Code(s): A49.02 - METHICILLIN RESIS STAPH INFECTION, UNSP SITE SNOMED Code(s) : 072257012 Comment: - MRSA bacteremia and wound infection - No evidence of vegetation noted on TTE - ID following, appreciate input - Continue vancomycin (4) [place]en infection of genital region Code(s): B37.49 - OTHER UROGENITAL CANDIDIASIS SNOMED Code(s): 217718735 Comment: - Scrotal - Will start Nystatin (5) Hyperkalemia Code(s): E87.5 - HYPERKALEMIA SNOMED Code(s): 24146871 Comment: - Resolved after kayexalate - Suspect secondary to CKD and spironolactone (6) Hyponatremia Code(s): E87.1 - HYPO-OSMOLALITY AND HYPONATREMIA SNOMED Code(s): 54294153 Comment: - Improving, 131 today - Continue diuretics for now and continue to monitor (7) Chronic respiratory failure Code(s): J96.10 - CHRONIC RESPIRATORY FAILURE, UNSP W HYPOXIA OR HYPERCAPNIA SNOMED Code(s): 33995917 Comment: - History COPD, obesity hypoventilation syndrome, and history of severe pulmonary hypertension - Stable on 1-2 L NC - Had severe pHTN 61 mm Hg on 07/24/17 but Pt has since lost 175lbs in last few months with aggrresive diuresis and dietary modification. TTE was unable to estimate PASP this time, but TR is improved, suggesting lower R-sided pressures (8) Diastolic CHF, chronic Code(s): I50.32 - CHRONIC DIASTOLIC (CONGESTIVE) HEART FAILURE SNOMED Code(s) : 922045295 Comment: - Appears to be euvolemic at this time - Lost 175 lbs over last few months with aggressive diuresis and diet modification - Continue to hold Torsemide, continue spironolactone - Daily weights and strict I+O's (9) Hypertension Code(s): I10 - ESSENTIAL (PRIMARY) HYPERTENSION SNOMED Code(s): 46599932 Comment: - Normotensive - Continue metoprolol and spironolactone (10) Atrial fibrillation Code(s): I48.91 - UNSPECIFIED ATRIAL FIBRILLATION SNOMED Code(s): 64376429 Comment: - Sinus rhythm and rate controlled at this time - Continue metoprolol 25mg BID - Resume xarelto at discharge per ortho, SQ heparin for now (11) Pulmonary embolism Code(s): I26.99 - OTHER PULMONARY EMBOLISM WITHOUT ACUTE COR PULMONALE SNOMED Code(s): 91431967 Comment: - Pt has h/o DVT/PE. - Resume xarelto at discharge per ortho, SQ heparin for now. (12) Diabetes mellitus Code(s): E11.9 - TYPE 2 DIABETES MELLITUS WITHOUT COMPLICATIONS SNOMED Code(s) : 68152881 Comment: - Glucose 130-150's - Continue Lantus 44 qhs, SSI coverage, and Lispro 10 units AC (13) CKD (chronic kidney disease) stage 3, GFR 30-59 ml/min Code(s): N18.3 - CHRONIC KIDNEY DISEASE, STAGE 3 (MODERATE) SNOMED Code(s): 566900298 Comment: - Creatine at baseline, stable. (14) Anemia Code(s): D64.9 - ANEMIA, UNSPECIFIED SNOMED Code(s): 061254961 Comment: - Stable, chronic. 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 - Would consider biopsy for changing size or TTP (recommended per radiology report) (16) Hypothyroid Code(s): E03.9 - HYPOTHYROIDISM, UNSPECIFIED SNOMED Code(s): 75577538 Comment: - TSH 08/2017, 4.56 - Continue levothryoxine (17) Morbid obesity Code(s): E66.01 - MORBID (SEVERE) OBESITY DUE TO EXCESS CALORIES SNOMED Code(s ): 412018644 Comment: - BMI ~ 47 (18) Gout Code(s): M10.9 - GOUT, UNSPECIFIED SNOMED Code(s): 48812830 Comment: - Continue allopurinol 600mg daily (19) DVT prophylaxis Code(s): RCF4729 - SNOMED Code(s): 560186119 Comment: -SCDs and SQ Heaprin, resume Xarelto at discharge per ortho (20) Full code status Code(s): Z78.9 - OTHER SPECIFIED HEALTH STATUS SNOMED Code(s): 140154779 Status and Disposition: Inpatient. Discharge when medically stable to [facility], Pt has a bed offer at [facility]. He could be ready as soon as tomorrow.
--- NOTE | 2017-10-04 15:28 | PN ---
Progress Note - Progress Note Date of Service: 10/04/17 SOAP: Subjective: [} Patient seen at bedside. He is comfortable and his LLE is nonpainful. States his right shoulder is still bothersome after a fall onto his buttock without known trauma to the shoulder before admission. X-rays were done which show grade 1 AC separation. He is able to use his arm as he normally does, but with some discomfort. Objective: [] General: Well appearing, NAD LLE: Splint CDI. Thigh soft, nonerythematous, no skin breakdown RUE: Mild tenderness over AC joint. No obvious deformity, no tenting, no skin breakdown. Full active forward flexion, abduction. Assessment: S/P left transtibial amp Plan: []NWB LLE keep Splint CDI PT/OT Right shoulder ROM and weight bearing as tolerated Per ID vancomycin goal tr 15-20, day 8/14 then doxycycline Heparin in house, resume home xarelto at DC Need to wean from JTAC as soon as able to oral pain medications When medically ready to plan for PMRU or [facility] (plan for CR tomorrow)
[2017-10-04] MEDS: oxyCODONE TAB* 5 MG TAB PO PRN ×2 (15:35→19:42)
[2017-10-04] MEDS: CMCS Melatonin (NF) 3 MG TAB PO PRN (22:31)
[2017-10-04] MEDS: Insulin GLARGINE(*) 1 UNITS UNIT SUBCUT SCH (22:32)
[2017-10-04] MEDS: Nystatin OINT* 15 GM TOPICAL SCH (22:35)
[2017-10-05 05:11] LABS: Hematocrit 33 % (42-52); Hemoglobin 10.2 g/dl (14.0-18.0); Mean Corpuscular HGB Conc 31 g/dl (31-36); Mean Corpuscular Hemoglobin 26 pg (27-31); Mean Corpuscular Volume 83 fL (80-94); Mean Platelet Volume 6.9 um3 (7.4-10.4); Platelet Count 605 10^3/ul (150-450); Red Blood Count 3.95 10^6/ul (4.0-5.4); Red Cell Distribution Width 17 % (10.5-15); White Blood Count 16.8 10^3/ul (3.5-10.8)
[2017-10-05] MEDS: Levothyroxine TAB* 100 MCG TAB PO SCH (05:30)
[2017-10-05] MEDS: oxyCODONE TAB* 5 MG TAB PO PRN ×4 (05:30→23:13)
[2017-10-05 05:31] LABS: ABS Basophils 0.1 10^3/ul (0-0.2); ABS Eosinophils 0.8 10^3/ul (0-0.6); ABS Neutrophils 13.9 10^3/ul (1.5-7.7); ABS Nucleated RBC 0 10^3/ul
[2017-10-05] MEDS: Heparin VIAL(*) 5000 UNITS/ML VIAL (FIVE THOUSAND) SUBCUT SCH ×3 (05:32→23:00)
[2017-10-05] MEDS: guaiFENesin ER TAB 600 MG PO SCH ×2 (05:42→18:02)
[2017-10-05] MEDS: LORazepam TAB(*) 1 MG PO PRN (07:55)
[2017-10-05] MEDS ORDERED: Vancomycin Trough Check NOTE FOLLOW UP ONE (08:00)
[2017-10-05] MEDS: Nystatin CREAM* 15 GM TUBE TOPICAL SCH ×2 (08:44→23:13)
[2017-10-05] MEDS: Nystatin OINT* 15 GM TOPICAL SCH ×3 (08:44→23:58)
[2017-10-05] MEDS: Allopurinol TAB* 300 MG PO SCH (09:04)
[2017-10-05] MEDS: Mometasone/Formoter 200/5 MDI INH SCH ×2 (09:04→20:24)
[2017-10-05] MEDS: Vancomycin(*) 1,000 MG in NS 0.9% 250 ML* 250 ML IVPB SCH (09:04)
[2017-10-05] MEDS: Metoprolol Tartrate TAB* 25 MG PO SCH ×2 (09:05→23:13)
[2017-10-05] MEDS: Polyethylene Glycol 3350* 17 GM PACKET PO SCH ×2 (09:05→22:52)
[2017-10-05] MEDS: Cholecalciferol TAB* 1000 UNITS PO SCH (09:05)
[2017-10-05] MEDS: diPHENhydraMINE PO* 25 MG PO PRN ×2 (09:05→15:32)
[2017-10-05] MEDS: Atorvastatin* 40 MG TAB PO SCH (09:05)
[2017-10-05] MEDS: Tamsulosin CAP* 0.4 MG PO SCH (09:05)
[2017-10-05] MEDS: Spironolactone TAB* 25 MG PO SCH (09:05)
[2017-10-05] MEDS: Insulin LISPRO* 1 UNITS UNIT SUBCUT SCH ×6 (09:41→18:03)
--- NOTE | 2017-10-05 13:41 | PN ---
Progress Note - Progress Note Date of Service: 10/05/17 SOAP: Subjective: 51 y/o male s/p BKA L by Dr. Muñoz 10/01. Patient reports increased pain at base of stump where lays on bed. concerned about r shoulder pain. no other questions/ concerns. VSS, afebrile overnight. Objective: General- Well appearing, NAD, AO resting in bed comfortably. MSK- LLE- Surgical dressing in palce, no drainage, odor noted, no induration, erythema of thigh. Vital Signs Temp 99.2 F 10/05/17 12:57 Pulse 99 10/05/17 12:57 Resp 18 10/05/17 12:57 BP 156/70 10/05/17 12:57 Pulse Ox 98 10/05/17 12:57 Intake & Output 10/04/17 10/05/17 10/05/17 18:59 06:59 18:59 Intake Total 1040 900 480 Output Total 1750 1030 800 Balance -710 -130 -320 Weight 152.407 kg Intake: Oral 1040 900 480 Output: Urine 1750 1030 800 Other: Estimated Void Medium Date of Last Bowel 10/04/17 10/05/17 Movement # Bowel Movements 1 1 Estimated Stool Amount Large Large # Voids 1 2 Assessment: Stable 51 y/o male s/p BKA L by Dr. Muñoz 10/01. Plan: - DVT prophylaxis- heparin - Continue PT/ OT - H&H - stable. WBC remains elevated at 16 - IV ABX Vanco x 14 days, then doxycycline per ID - R shoulder pain- reviewed x-rays, PT for ROM, strength Acetaminophen (Tylenol Tab*) 325 mg PO Q6H PRN PRN Reason: PAIN Last Admin: 09/27/17 12:08 Dose: 325 mg Albuterol (Ventolin 2.5 Mg/3 Ml Neb.Christy*) 2.5 mg INH Q4H PRN PRN Reason: SOB/WHEEZING Allopurinol (Zyloprim Tab*) 600 mg PO DAILY [facility] Last Admin: 10/05/17 09:04 Dose: 600 mg Atorvastatin Calcium (Lipitor*) 40 mg PO DAILY [facility] Last Admin: 10/05/17 09:05 Dose: 40 mg Bisacodyl (Dulcolax Supp*) 10 mg MO DAILY PRN PRN Reason: CONSTIPATION Cholecalciferol (Vitamin D Tab*) 1,000 units PO DAILY [facility] Last Admin: 10/05/17 09:05 Dose: 1,000 units Dextrose (D50w Syringe 50 Ml*) 12.5 gm IV PUSH .FOR FS < 60 - SS PRN PRN Reason: FS < 60 Diphenhydramine HCl (Benadryl Po*) 25 mg PO Q6H PRN PRN Reason: ITCHING Last Admin: 10/05/17 09:05 Dose: 25 mg Docusate Sodium (Colace Cap*) 100 mg PO DAILY PRN PRN Reason: CONSTIPATION Last Admin: 10/02/17 20:54 Dose: 100 mg Guaifenesin (Mucinex*) 600 mg PO Q12H [facility] Last Admin: 10/05/17 05:42 Dose: Not Given Heparin Sodium (Porcine) (Heparin Vial(*)) 5,000 units SUBCUT Q8HR [facility] Last Admin: 10/05/17 13:21 Dose: 5,000 units Vancomycin HCl 1,250 mg/ (Sodium Chloride) 250 mls @ 166.667 mls/hr IVPB Q24H [facility] Insulin Glargine (Lantus(*)) 44 units SUBCUT BEDTIME [facility] Last Admin: 10/04/17 22:32 Dose: 44 units Insulin Human Lispro (Humalog*) 0 units SUBCUT AC [facility] PRN Reason: Protocol Last Admin: 10/05/17 13:21 Dose: 3 unit Insulin Human Lispro (Humalog*) 10 units SUBCUT AC [facility] Last Admin: 10/05/17 13:21 Dose: 10 units Levothyroxine Sodium (Synthroid Tab*) 200 mcg PO DAILY@0600 [facility] Last Admin: 10/05/17 05:30 Dose: 200 mcg Lorazepam (Ativan Tab(*)) 1 mg PO Q6H PRN PRN Reason: ANXIETY Last Admin: 10/05/17 07:55 Dose: 1 mg Melatonin (Melatonin (Nf)) 3 mg PO BEDTIME PRN; Protocol PRN Reason: Sleep Last Admin: 10/04/17 22:31 Dose: 3 mg Metoprolol Tartrate (Lopressor Tab*) 25 mg PO BID [facility] Last Admin: 10/05/17 09:05 Dose: 25 mg Mometasone Furoate/Formoterol Fumar (Dulera 200/5 Mdi*) 2 puff INH BID [facility] PRN Reason: Protocol Last Admin: 10/05/17 09:04 Dose: 2 puff Nystatin (Nystatin Cream*) 1 applic TOPICAL BID [facility] Last Admin: 10/05/17 08:44 Dose: Not Given Nystatin (Nystatin Oint*) 1 applic TOPICAL TID [facility] Last Admin: 10/05/17 12:48 Dose: Not Given Oxycodone HCl (Roxycodone Tab*) 10 mg PO Q4H PRN PRN Reason: PAIN Last Admin: 10/05/17 09:42 Dose: 10 mg Pharmacy Consult (Vancomycin Per Pharmacy*) 1 note FOLLOW UP .VANC PER [facility]ACY [facility] Pharmacy Profile Note (Vancomycin Trough Check) 1 note FOLLOW UP ONCE ONE Stop: 10/08/17 07:31 Polyethylene Glycol/Electrolytes (Miralax*) 17 gm PO BID [facility] Last Admin: 10/05/17 09:05 Dose: Not Given Senna (Senokot Tab*) 1 tab PO BEDTIME PRN PRN Reason: CONSTIPATION Last Admin: 09/30/17 20:39 Dose: 1 tab Simethicone (Mylicon Tab*) 80 mg PO Q8H PRN PRN Reason: NAUSEA Last Admin: 10/04/17 19:42 Dose: 80 mg Spironolactone (Aldactone Tab*) 50 mg PO DAILY [facility] Last Admin: 10/05/17 09:05 Dose: 50 mg Tamsulosin HCl (Flomax Cap*) 0.4 mg PO DAILY [facility] Last Admin: 10/05/17 09:05 Dose: 0.4 mg
--- NOTE | 2017-10-05 13:45 | PN ---
Subjective Date of Service: 10/05/17 Interval History: Patient was seen and examined earlier today. Feels depressed, but denies any ideation to harm self. Pain is well controlled. Denies chest pain, palpitations , SOB, fever or chills. Has been tolerating his Vanco, plan to stay on it for 6 more days, before switching to PO Doxycycline. He has no complaints today. Family History: Unchanged from Admission Social History: Unchanged from Admission Past Medical History: Unchanged from Admission Objective Active Medications: Acetaminophen (Tylenol Tab*) 325 mg PO Q6H PRN PRN Reason: PAIN Last Admin: 09/27/17 12:08 Dose: 325 mg Albuterol (Ventolin 2.5 Mg/3 Ml Neb.Christy*) 2.5 mg INH Q4H PRN PRN Reason: SOB/WHEEZING Allopurinol (Zyloprim Tab*) 600 mg PO DAILY [facility] Last Admin: 10/05/17 09:04 Dose: 600 mg Atorvastatin Calcium (Lipitor*) 40 mg PO DAILY [facility] Last Admin: 10/05/17 09:05 Dose: 40 mg Bisacodyl (Dulcolax Supp*) 10 mg [place] DAILY PRN PRN Reason: CONSTIPATION Cholecalciferol (Vitamin D Tab*) 1,000 units PO DAILY [facility] Last Admin: 10/05/17 09:05 Dose: 1,000 units Dextrose (D50w Syringe 50 Ml*) 12.5 gm IV PUSH .FOR FS < 60 - SS PRN PRN Reason: FS < 60 Diphenhydramine HCl (Benadryl Po*) 25 mg PO Q6H PRN PRN Reason: ITCHING Last Admin: 10/05/17 09:05 Dose: 25 mg Docusate Sodium (Colace Cap*) 100 mg PO DAILY PRN PRN Reason: CONSTIPATION Last Admin: 10/02/17 20:54 Dose: 100 mg Guaifenesin (Mucinex*) 600 mg PO Q12H [facility] Last Admin: 10/05/17 05:42 Dose: Not Given Heparin Sodium (Porcine) (Heparin Vial(*)) 5,000 units SUBCUT Q8HR [facility] Last Admin: 10/05/17 13:21 Dose: 5,000 units Vancomycin HCl 1,250 mg/ (Sodium Chloride) 250 mls @ 166.667 mls/hr IVPB Q24H [facility] Insulin Glargine (Lantus(*)) 44 units SUBCUT BEDTIME [facility] Last Admin: 10/04/17 22:32 Dose: 44 units Insulin Human Lispro (Humalog*) 0 units SUBCUT [facility] PRN Reason: Protocol Last Admin: 10/05/17 13:21 Dose: 3 unit Insulin Human Lispro (Humalog*) 10 units SUBCUT AC [facility] Last Admin: 10/05/17 13:21 Dose: 10 units Levothyroxine Sodium (Synthroid Tab*) 200 mcg PO DAILY@0600 [facility] Last Admin: 10/05/17 05:30 Dose: 200 mcg Lorazepam (Ativan Tab(*)) 1 mg PO Q6H PRN PRN Reason: ANXIETY Last Admin: 10/05/17 07:55 Dose: 1 mg Melatonin (Melatonin (Nf)) 3 mg PO BEDTIME PRN; Protocol PRN Reason: Sleep Last Admin: 10/04/17 22:31 Dose: 3 mg Metoprolol Tartrate (Lopressor Tab*) 25 mg PO BID [facility] Last Admin: 10/05/17 09:05 Dose: 25 mg Mometasone Furoate/Formoterol Fumar (Dulera 200/5 Mdi*) 2 puff INH BID [facility] PRN Reason: Protocol Last Admin: 10/05/17 09:04 Dose: 2 puff Nystatin (Nystatin Cream*) 1 applic TOPICAL BID [facility] Last Admin: 10/05/17 08:44 Dose: Not Given Nystatin (Nystatin Oint*) 1 applic TOPICAL TID [facility] Last Admin: 10/05/17 12:48 Dose: Not Given Oxycodone HCl (Roxycodone Tab*) 10 mg PO Q4H PRN PRN Reason: PAIN Last Admin: 10/05/17 09:42 Dose: 10 mg Pharmacy Consult (Vancomycin Per Pharmacy*) 1 note FOLLOW UP .VANC PER PHARMACY [facility] Pharmacy Profile Note (Vancomycin Trough Check) 1 note FOLLOW UP ONCE ONE Stop: 10/08/17 07:31 Polyethylene Glycol/Electrolytes (Miralax*) 17 gm PO BID [facility] Last Admin: 10/05/17 09:05 Dose: Not Given Senna (Senokot Tab*) 1 tab PO BEDTIME PRN PRN Reason: CONSTIPATION Last Admin: 09/30/17 20:39 Dose: 1 tab Simethicone (Mylicon Tab*) 80 mg PO Q8H PRN PRN Reason: NAUSEA Last Admin: 10/04/17 19:42 Dose: 80 mg Spironolactone (Aldactone Tab*) 50 mg PO DAILY [facility] Last Admin: 10/05/17 09:05 Dose: 50 mg Tamsulosin HCl (Flomax Cap*) 0.4 mg PO DAILY [facility] Last Admin: 10/05/17 09:05 Dose: 0.4 mg Vital Signs - 8 hr 10/05/17 10/05/17 10/05/17 07:55 07:56 08:00 Temperature Pulse Rate Respiratory 18 18 20 Rate Blood Pressure (mmHg) O2 Sat by Pulse 99 Oximetry 10/05/17 10/05/17 10/05/17 09:05 09:42 10:15 Temperature Pulse Rate Respiratory 18 18 18 Rate Blood Pressure (mmHg) O2 Sat by Pulse Oximetry 10/05/17 10/05/17 10/05/17 10:54 12:08 12:57 Temperature 99.2 F Pulse Rate 99 Respiratory 20 18 18 Rate Blood Pressure 156/70 (mmHg) O2 Sat by Pulse 98 Oximetry Oxygen Devices in Use Now: Nasal Cannula Appearance: Morbidly obese, laying on his bed, appears comfortable and in NAD. Eyes: No Scleral Icterus, PERRLA Ears/Nose/Mouth/Throat: Clear Oropharnyx, Mucous Membranes Moist Neck: NL Appearance and Movements; NL JVP, Trachea Midline Respiratory: Symmetrical Chest Expansion and Respiratory Effort, Clear to Auscultation Cardiovascular: NL Sounds; No Murmurs; No JVD, RRR Abdominal: NL Sounds; No Tenderness; No Distention Extremities: - - LLE amputaion at mid-tibia, with clean and dry JOSEPHINE wrap. Neurological: Alert and Oriented x 3, NL Sensation, NL Muscle Strength and Tone Lines/Tubes/Other Access: Clean, Dry and Intact Peripheral IV Nutrition: Taking PO's Result Diagrams: 10/05/17 04:32 10/04/17 09:54 Additional Lab and Data: Microbiology and Other Data: . Diagnostic Imaging: . EKG Data: . Assess/Plan/Problems-Billing Assessment: Mr. Anderson is a 51 yo male PMH diastolic CHF, morbid obesity, severe pHTN, IDDM, Afib on Xarelto, MRSA bacteremia and left ankle abscess/OM/charcot foot s/p long course of outpatient abx who p/w fall, tachycardia and swollen left ankle with MRSA bacteremia and osteomyelitis of left foot now s/p a transtibial amputation. - Patient Problems (1) Foot osteomyelitis, left Current Visit: Yes Status: Acute Priority: High Comment: - s/p transtibial amputation, POD #4 - Ortho and ID following - Continue pain meds prn with bowel regimen, [employer] d/c'ed - Continue vancomycin, day 9/14. Will change to doxy after 14 days of vanco - PICC placement requested, possible d/c to [facility] this weekend (2) Sepsis Current Visit: Yes Status: Acute Comment: - Improving (afebrile, tachycardia resolved) - Continues to have leukocytosis - Secondary to MRSA bacteremia from left foot osteomyelitis and cellulitis (3) MRSA (methicillin resistant Staphylococcus aureus) Current Visit: Yes Status: Chronic Comment: - MRSA bacteremia and wound infection - No evidence of vegetation noted on TTE - ID following, appreciate input - Continue vancomycin, then Doxy per ID recommendations (4) Anemia Current Visit: No Status: Chronic Comment: - Stable, chronic. (5) Atrial fibrillation Current Visit: No Status: Chronic Comment: - Sinus rhythm and rate controlled at this time - Continue metoprolol 25mg BID - Resume xarelto at discharge per ortho, SQ heparin for now (6) CKD (chronic kidney disease) stage 3, GFR 30-59 ml/min Current Visit: No Status: Chronic Comment: - Creatine at baseline, stable. (7) Diabetes mellitus Current Visit: No Status: Chronic Comment: - Glucose 130-150's - Continue Lantus 44 qhs, SSI coverage, and Lispro 10 units AC (8) Gout Current Visit: No Status: Chronic Comment: - Continue allopurinol 600mg daily (9) Hypertension Current Visit: No Status: Chronic Comment: - Normotensive - Continue metoprolol and spironolactone (10) Hypothyroid Current Visit: No Status: Chronic Comment: - TSH 08/2017, 4.56 - Continue levothryoxine (11) Morbid obesity Current Visit: No Status: Chronic Comment: - BMI ~ 47 - supportive care (12) Pulmonary embolism Current Visit: No Status: Chronic Comment: - Pt has h/o DVT/PE. - Resume xarelto at discharge per ortho, SQ heparin for now. (13) Maria Del Carmen infection of genital region Current Visit: Yes Status: Acute Comment: - Scrotal - Will start Nystatin (14) Full code status Current Visit: Yes Status: Acute Comment: (15) DVT prophylaxis Current Visit: Yes Status: Acute Comment: -SCDs and SQ Heaprin, resume Xarelto at discharge per ortho Status and Disposition: Inpatient. Discharge when medically stable to [facility]. Pt has a bed offer at [facility], however, needs a PICC line to continue Vanco for another 5 days. D/C plans to [facility] on until Sunday
[2017-10-05] MEDS: Insulin GLARGINE(*) 1 UNITS UNIT SUBCUT SCH (22:59)
[2017-10-05] MEDS: CMCS Melatonin (NF) 3 MG TAB PO PRN (23:13)
[2017-10-06] MEDS: diPHENhydraMINE PO* 25 MG PO PRN ×4 (00:09→20:31)
[2017-10-06] MEDS: LORazepam TAB(*) 1 MG PO PRN ×3 (00:15→20:52)
[2017-10-06] MEDS: Heparin VIAL(*) 5000 UNITS/ML VIAL (FIVE THOUSAND) SUBCUT SCH ×3 (05:50→20:32)
[2017-10-06] MEDS: guaiFENesin ER TAB 600 MG PO SCH ×2 (05:50→17:51)
[2017-10-06] MEDS: Levothyroxine TAB* 100 MCG TAB PO SCH (05:51)
[2017-10-06] MEDS: oxyCODONE TAB* 5 MG TAB PO PRN ×4 (06:02→20:30)
[2017-10-06 06:56] LABS: Hematocrit 31 % (42-52); Hemoglobin 9.9 g/dl (14.0-18.0); Mean Corpuscular HGB Conc 32 g/dl (31-36); Mean Corpuscular Hemoglobin 27 pg (27-31); Mean Corpuscular Volume 83 fL (80-94); Mean Platelet Volume 6.7 um3 (7.4-10.4); Platelet Count 611 10^3/ul (150-450); Red Blood Count 3.75 10^6/ul (4.0-5.4); Red Cell Distribution Width 17 % (10.5-15); White Blood Count 14.7 10^3/ul (3.5-10.8)
[2017-10-06 07:00] LABS: ABS Basophils 0.1 10^3/ul (0-0.2); ABS Eosinophils 0.6 10^3/ul (0-0.6); ABS Lymphocytes 1.2 10^3/ul (1.0-4.8); ABS Monocytes 0.9 10^3/ul (0-0.8); ABS Neutrophils 11.9 10^3/ul (1.5-7.7)
[2017-10-06] MEDS: Vancomycin(*) 1,250 MG in NS 0.9% 250 ML* 250 ML IVPB SCH (07:17)
[2017-10-06] MEDS: Mometasone/Formoter 200/5 MDI INH SCH ×2 (07:21→20:16)
[2017-10-06] MEDS: Polyethylene Glycol 3350* 17 GM PACKET PO SCH ×2 (07:22→20:53)
[2017-10-06] MEDS: Spironolactone TAB* 25 MG PO SCH (07:23)
[2017-10-06] MEDS: Cholecalciferol TAB* 1000 UNITS PO SCH (07:23)
[2017-10-06] MEDS: Metoprolol Tartrate TAB* 25 MG PO SCH ×2 (07:23→20:30)
[2017-10-06] MEDS: Atorvastatin* 40 MG TAB PO SCH (07:23)
[2017-10-06] MEDS: Tamsulosin CAP* 0.4 MG PO SCH (07:23)
[2017-10-06] MEDS: Allopurinol TAB* 300 MG PO SCH (07:23)
[2017-10-06] MEDS: Nystatin CREAM* 15 GM TUBE TOPICAL SCH ×2 (07:24→20:53)
[2017-10-06] MEDS: Nystatin OINT* 15 GM TOPICAL SCH ×3 (07:24→20:53)
[2017-10-06 07:28] LABS: EGFR Non-African American 92.1 (>60)
[2017-10-06 07:31] LABS: ABS Nucleated RBC 0 10^3/ul; Eosinophil % 4.4 % (0-6); Lymphocyte % 7.8 % (25-47); Nucleated Red Blood Cells % 0
[2017-10-06 07:43] LABS: Monocytes % 4 % (0-7)
--- NOTE | 2017-10-06 08:08 | PN ---
Progress Note - Progress Note Date of Service: 10/06/17 SOAP: Subjective: resting comfortably in bed with minimal complaints of pain Objective: Vital Signs Temp Pulse Resp BP Pulse Ox 98.7 F 73 16 123/61 94 10/06/17 03:25 10/06/17 03:25 10/06/17 06:02 10/06/17 03:25 10/06/17 03:25 Laboratory Last Values WBC 14.7 10^3/ul (3.5-10.8) H 10/06/17 06:23 RBC 3.75 10^6/ul (4.0-5.4) L 10/06/17 06:23 Hgb 9.9 g/dl (14.0-18.0) L 10/06/17 06:23 Hct 31 % (42-52) L 10/06/17 06:23 MCV 83 fL (80-94) 10/06/17 06:23 MCH 27 pg (27-31) 10/06/17 06:23 MCHC 32 g/dl (31-36) 10/06/17 06:23 RDW 17 % (10.5-15) H 10/06/17 06:23 Plt Count 611 10^3/ul (150-450) H 10/06/17 06:23 MPV 6.7 um3 (7.4-10.4) L 10/06/17 06:23 Neut % (Auto) 80.7 % (38-83) 10/06/17 06:23 Lymph % (Auto) 7.8 % (25-47) L 10/06/17 06:23 [place] % (Auto) 6.4 % (0-7) 10/06/17 06:23 Eos % (Auto) 4.4 % (0-6) 10/06/17 06:23 Baso % (Auto) 0.7 % (0-2) 10/06/17 06:23 Absolute Neuts (auto) 11.9 10^3/ul (1.5-7.7) H 10/06/17 06:23 Absolute Lymphs (auto) 1.2 10^3/ul (1.0-4.8) 10/06/17 06:23 Absolute Monos (auto) 0.9 10^3/ul (0-0.8) H 10/06/17 06:23 Absolute Eos (auto) 0.6 10^3/ul (0-0.6) 10/06/17 06:23 Absolute Basos (auto) 0.1 10^3/ul (0-0.2) 10/06/17 06:23 Absolute Nucleated RBC 0 10^3/ul 10/06/17 06:23 Immature Gran % 4 % (0-9) 10/06/17 06:23 Neutrophils % 77 % (38-83) 10/06/17 06:23 Band Neutrophils % 2 % (0-8) 10/06/17 06:23 Lymphocytes % 9 % (25-47) L 10/06/17 06:23 Monocytes % 4 % (0-7) 10/06/17 06:23 Eosinophils % 6 % (0-6) 10/06/17 06:23 Basophils % 0 % (0-2) 10/06/17 06:23 Metamyelocytes % 1 % (0-2) 10/06/17 06:23 Myelocytes % 1 % (0-1) 10/06/17 06:23 Nucleated RBC % 0 10/06/17 06:23 Abs Neuts (Manual) 11.3 10^3/ul (1.5-7.7) H 10/06/17 06:23 Abs Lymphs (Manual) 1.3 10^3/ul (1.0-4.8) 10/06/17 06:23 Abs Monocytes (Manual) 0.6 10^3/ul (0-0.8) 10/06/17 06:23 Absolute Eos (Manual) 0.9 10^3/ul (0-0.6) H 10/06/17 06:23 Abs Basophils (Manual) 0 10^3/ul (0-0.2) 10/06/17 06:23 Normal RBC Morphology Not Reportable 10/06/17 06:23 Polychromasia 1+ 10/06/17 06:23 Hypochromasia 1+ 10/06/17 06:23 Anisocytosis 1+ 10/04/17 09:54 Elliptocytes 1+ 10/06/17 06:23 Hem Pathologist Commnt 10/03/17 06:51 INR (Anticoag Therapy) 1.17 (0.77-1.02) H 10/02/17 16:04 APTT 32.8 seconds (26.0-36.3) 10/02/17 16:04 Sodium 129 mmol/L (139-145) L 10/06/17 06:23 Potassium 4.7 mmol/L (3.5-5.0) 10/06/17 06:23 Chloride 99 mmol/L (101-111) L 10/06/17 06:23 Carbon Dioxide 25 mmol/L (22-32) 10/06/17 06:23 Anion Gap 5 mmol/L (2-11) 10/06/17 06:23 BUN 36 mg/dL (6-24) H 10/06/17 06:23 Creatinine 0.87 mg/dL (0.67-1.17) 10/06/17 06:23 Est GFR ( Amer) 118.5 (>60) 10/06/17 06:23 Est GFR (Non-Af Amer) 92.1 (>60) 10/06/17 06:23 BUN/Creatinine Ratio 41.4 (8-20) H 10/06/17 06:23 Glucose 157 mg/dL (70-100) H 10/06/17 06:23 POC Glucose (mg/dL) 100 mg/dL (70-100) 10/06/17 07:17 Uric Acid 6.9 mg/dL (4.4-7.6) 09/28/17 08:54 Calcium 8.2 mg/dL (8.6-10.3) L 10/06/17 06:23 Magnesium 1.9 mg/dL (1.9-2.7) 09/29/17 08:18 Total Bilirubin 0.60 mg/dL (0.2-1.0) 09/27/17 04:47 AST 50 U/L (13-39) H 09/27/17 04:47 ALT 78 U/L (7-52) H 09/27/17 04:47 Alkaline Phosphatase 359 U/L (34-104) H 09/27/17 04:47 C-Reactive Protein 151.32 mg/L (< 5.00) H 09/27/17 19:19 Total Protein 7.0 g/dL (6.4-8.9) 09/27/17 04:47 Albumin 2.7 g/dL (3.2-5.2) L 09/27/17 04:47 Globulin 4.3 g/dL (2-4) H 09/27/17 04:47 Albumin/Globulin Ratio 0.6 (1-3) L 09/27/17 04:47 Urine Color Yellow 09/27/17 04:47 Urine Appearance Clear 09/27/17 04:47 Urine pH 5.0 (5-9) 09/27/17 04:47 Ur Specific [place] 1.010 (1.010-1.030) 09/27/17 04:47 Urine Protein 1+(30 mg/dl) (Negative) A 09/27/17 04:47 Urine Ketones Negative (Negative) 09/27/17 04:47 Urine Blood 1+ (Negative) A 09/27/17 04:47 Urine Nitrate Negative (Negative) 09/27/17 04:47 Urine Bilirubin Negative (Negative) 09/27/17 04:47 Urine Urobilinogen Negative (Negative) 09/27/17 04:47 Ur Leukocyte Esterase Negative (Negative) 09/27/17 04:47 Urine WBC (Auto) Absent (Absent) 09/27/17 04:47 Urine RBC (Auto) Trace(0-2/hpf) (Absent) 09/27/17 04:47 Urine Bacteria Absent (Absent) 09/27/17 04:47 Urine Osmolality 384 mOsm/kg (150-1150) 09/28/17 12:08 Ur Random Sodium 37 mmol/L 09/28/17 12:08 Urine Glucose Negative (Negative) 09/27/17 04:47 Vancomycin Trough 12.0 mcg/mL 10/05/17 07:24 incision: c/d/i PE: able to lift leg without difficulty Assessment: 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
[2017-10-06] MEDS: Insulin LISPRO* 1 UNITS UNIT SUBCUT SCH ×6 (09:25→17:50)
--- NOTE | 2017-10-06 11:56 | PN ---
Subjective Date of Service: 10/06/17 Interval History: Patient was seen and examined at bedside. Reports doing well overall. Denies any pain. He has no complaints today. Labs reviewed, leukocytosis continues to improve. Family History: Unchanged from Admission Social History: Unchanged from Admission Past Medical History: Unchanged from Admission Objective Active Medications: Acetaminophen (Tylenol Tab*) 325 mg PO Q6H PRN PRN Reason: PAIN Last Admin: 09/27/17 12:08 Dose: 325 mg Albuterol (Ventolin 2.5 Mg/3 Ml Neb.Christy*) 2.5 mg INH Q4H PRN PRN Reason: SOB/WHEEZING Allopurinol (Zyloprim Tab*) 600 mg PO DAILY [facility] Last Admin: 10/06/17 07:23 Dose: 600 mg Atorvastatin Calcium (Lipitor*) 40 mg PO DAILY [facility] Last Admin: 10/06/17 07:23 Dose: 40 mg Bisacodyl (Dulcolax Supp*) 10 mg [place] DAILY PRN PRN Reason: CONSTIPATION Cholecalciferol (Vitamin D Tab*) 1,000 units PO DAILY [facility] Last Admin: 10/06/17 07:23 Dose: 1,000 units Dextrose (D50w Syringe 50 Ml*) 12.5 gm IV PUSH .FOR FS < 60 - SS PRN PRN Reason: FS < 60 Diphenhydramine HCl (Benadryl Po*) 25 mg PO Q6H PRN PRN Reason: ITCHING Last Admin: 10/06/17 06:02 Dose: 25 mg Docusate Sodium (Colace Cap*) 100 mg PO DAILY PRN PRN Reason: CONSTIPATION Last Admin: 10/02/17 20:54 Dose: 100 mg Guaifenesin (Mucinex*) 600 mg PO Q12H [facility] Last Admin: 10/06/17 05:50 Dose: Not Given Heparin Sodium (Porcine) (Heparin Vial(*)) 5,000 units SUBCUT Q8HR [facility] Last Admin: 10/06/17 05:50 Dose: 5,000 units Vancomycin HCl 1,250 mg/ (Sodium Chloride) 250 mls @ 166.667 mls/hr IVPB Q24H [facility] Last Admin: 10/06/17 07:17 Dose: 166.667 mls/hr Insulin Glargine (Lantus(*)) 44 units SUBCUT BEDTIME [facility] Last Admin: 10/05/17 22:59 Dose: 44 units Insulin Human Lispro (Humalog*) 0 units SUBCUT AC [facility] PRN Reason: Protocol Last Admin: 10/06/17 09:25 Dose: 3 unit Insulin Human Lispro (Humalog*) 10 units SUBCUT AC [facility] Last Admin: 10/06/17 09:25 Dose: 10 units Levothyroxine Sodium (Synthroid Tab*) 200 mcg PO DAILY@0600 [facility] Last Admin: 10/06/17 05:51 Dose: 200 mcg Lorazepam (Ativan Tab(*)) 1 mg PO Q6H PRN PRN Reason: ANXIETY Last Admin: 10/06/17 00:15 Dose: 1 mg Melatonin (Melatonin (Nf)) 3 mg PO BEDTIME PRN; Protocol PRN Reason: Sleep Last Admin: 10/05/17 23:13 Dose: 3 mg Metoprolol Tartrate (Lopressor Tab*) 25 mg PO BID [facility] Last Admin: 10/06/17 07:23 Dose: 25 mg Mometasone Furoate/Formoterol Fumar (Dulera 200/5 Mdi*) 2 puff INH BID [facility] PRN Reason: Protocol Last Admin: 10/06/17 07:21 Dose: 2 puff Nystatin (Nystatin Cream*) 1 applic TOPICAL BID [facility] Last Admin: 10/06/17 07:24 Dose: Not Given Nystatin (Nystatin Oint*) 1 applic TOPICAL TID [facility] Last Admin: 10/06/17 07:24 Dose: Not Given Oxycodone HCl (Roxycodone Tab*) 10 mg PO Q4H PRN PRN Reason: PAIN Last Admin: 10/06/17 11:07 Dose: 10 mg Pharmacy Consult (Vancomycin Per Pharmacy*) 1 note FOLLOW UP .VANC PER PHARMACY [facility] Pharmacy Profile Note (Vancomycin Trough Check) 1 note FOLLOW UP ONCE ONE Stop: 10/08/17 07:31 Polyethylene Glycol/Electrolytes (Miralax*) 17 gm PO BID [facility] Last Admin: 10/06/17 07:22 Dose: 17 gm Senna (Senokot Tab*) 1 tab PO BEDTIME PRN PRN Reason: CONSTIPATION Last Admin: 09/30/17 20:39 Dose: 1 tab Simethicone (Mylicon Tab*) 80 mg PO Q8H PRN PRN Reason: NAUSEA Last Admin: 10/04/17 19:42 Dose: 80 mg Spironolactone (Aldactone Tab*) 50 mg PO DAILY [facility] Last Admin: 10/06/17 07:23 Dose: 50 mg Tamsulosin HCl (Flomax Cap*) 0.4 mg PO DAILY [facility] Last Admin: 10/06/17 07:23 Dose: 0.4 mg Vital Signs - 8 hr 10/06/17 10/06/17 10/06/17 06:02 07:15 07:24 Temperature 98.4 F Pulse Rate 82 Respiratory 16 20 16 Rate Blood Pressure 151/42 (mmHg) O2 Sat by Pulse 94 94 Oximetry 10/06/17 10/06/17 10/06/17 08:15 09:25 11:07 Temperature Pulse Rate Respiratory 15 16 Rate Blood Pressure (mmHg) O2 Sat by Pulse 94 Oximetry Oxygen Devices in Use Now: CPAP Appearance: Morbidly obese male, appears comfortable sitting up on his bed, and in NAD Eyes: No Scleral Icterus, PERRLA Ears/Nose/Mouth/Throat: Clear Oropharnyx, Mucous Membranes Moist Neck: NL Appearance and Movements; NL JVP, Trachea Midline Respiratory: Symmetrical Chest Expansion and Respiratory Effort, Clear to Auscultation Cardiovascular: NL Sounds; No Murmurs; No JVD, RRR Abdominal: NL Sounds; No Tenderness; No Distention Extremities: No Edema Skin: No Rash or Ulcers Neurological: Alert and Oriented x 3, NL Sensation Nutrition: Taking PO's Result Diagrams: 10/06/17 06:23 10/06/17 06:23 Additional Lab and Data: Microbiology and Other Data: . Diagnostic Imaging: . EKG Data: . Assess/Plan/Problems-Billing Assessment: Mr. Anderson is a 51 yo male PMH diastolic CHF, morbid obesity, severe pHTN, IDDM, Afib on Xarelto, MRSA bacteremia and left ankle abscess/OM/charcot foot s/p long course of outpatient abx who p/w fall, tachycardia and swollen left ankle with MRSA bacteremia and osteomyelitis of left foot now s/p a transtibial amputation. - Patient Problems (1) Foot osteomyelitis, left Current Visit: Yes Status: Acute Priority: High Comment: - s/p transtibial amputation, POD #5 - Ortho and ID following - Continue pain meds prn with bowel regimen - Continue vancomycin, day 10/14. Will change to doxy after 14 days of vanco - PICC placement requested, possible d/c to [facility] on Sunday (2) Sepsis Current Visit: Yes Status: Acute Comment: - Improving (afebrile, tachycardia resolved) - Leukocytosis improving - Secondary to MRSA bacteremia from left foot osteomyelitis and cellulitis (3) MRSA (methicillin resistant Staphylococcus aureus) Current Visit: Yes Status: Chronic Comment: - MRSA bacteremia and wound infection - No evidence of vegetation noted on TTE - ID following, appreciate input - Continue vancomycin, then Doxy per ID recommendations (4) Anemia Current Visit: No Status: Chronic Comment: - Stable, chronic. (5) Atrial fibrillation Current Visit: No Status: Chronic Comment: - Sinus rhythm and rate controlled at this time - Continue metoprolol 25mg BID - Resume xarelto at discharge per ortho, SQ heparin for now (6) CKD (chronic kidney disease) stage 3, GFR 30-59 ml/min Current Visit: No Status: Chronic Comment: - Creatine at baseline, stable. (7) Diabetes mellitus Current Visit: No Status: Chronic Comment: - Glucose 130-170's - Continue Lantus 44 qhs, SSI coverage, and Lispro 10 units AC (8) Gout Current Visit: No Status: Chronic Comment: - Continue allopurinol 600mg daily (9) Hypertension Current Visit: No Status: Chronic Comment: - Normotensive - Continue metoprolol and spironolactone (10) Hypothyroid Current Visit: No Status: Chronic Comment: - TSH 08/2017, 4.56 - Continue levothryoxine (11) Morbid obesity Current Visit: No Status: Chronic Comment: - BMI ~ 47 - supportive care (12) Pulmonary embolism Current Visit: No Status: Chronic Comment: - Pt has h/o DVT/PE. - Resume xarelto at discharge per ortho, SQ heparin for now. (13) Maria Del Carmen infection of genital region Current Visit: Yes Status: Acute Comment: - Scrotal - Will start Nystatin - No c/o itching (14) Full code status Current Visit: Yes Status: Acute Comment: (15) DVT prophylaxis Current Visit: Yes Status: Acute Comment: -SCDs and SQ Heaprin, resume Xarelto at discharge per ortho Status and Disposition: Inpatient. Discharge when medically stable to [facility]. Pt has a bed offer at [facility], however, needs a PICC line to continue Vanco for another 5 days. D/C plans to [facility] on Sunday
[2017-10-06] MEDS: Insulin GLARGINE(*) 1 UNITS UNIT SUBCUT SCH (20:32)
[2017-10-06] MEDS: CMCS Melatonin (NF) 3 MG TAB PO PRN (20:52)
[2017-10-07] MEDS: oxyCODONE TAB* 5 MG TAB PO PRN ×4 (00:26→14:53)
[2017-10-07] MEDS: guaiFENesin ER TAB 600 MG PO SCH ×2 (05:21→15:16)
[2017-10-07] MEDS: diPHENhydraMINE PO* 25 MG PO PRN ×2 (05:24→20:04)
[2017-10-07] MEDS: Levothyroxine TAB* 100 MCG TAB PO SCH (05:24)
[2017-10-07] MEDS: Heparin VIAL(*) 5000 UNITS/ML VIAL (FIVE THOUSAND) SUBCUT SCH ×3 (05:26→21:53)
[2017-10-07] MEDS: Nystatin CREAM* 15 GM TUBE TOPICAL SCH ×2 (07:39→21:54)
[2017-10-07] MEDS: Nystatin OINT* 15 GM TOPICAL SCH ×3 (07:39→19:59)
[2017-10-07] MEDS: Mometasone/Formoter 200/5 MDI INH SCH ×2 (08:21→20:23)
[2017-10-07] MEDS: Vancomycin(*) 1,250 MG in NS 0.9% 250 ML* 250 ML IVPB SCH (09:04)
[2017-10-07] MEDS: Insulin LISPRO* 1 UNITS UNIT SUBCUT SCH ×6 (09:04→18:26)
[2017-10-07] MEDS: Atorvastatin* 40 MG TAB PO SCH (09:05)
[2017-10-07] MEDS: Cholecalciferol TAB* 1000 UNITS PO SCH (09:05)
[2017-10-07] MEDS: Metoprolol Tartrate TAB* 25 MG PO SCH ×2 (09:05→21:53)
[2017-10-07] MEDS: Polyethylene Glycol 3350* 17 GM PACKET PO SCH ×2 (09:05→21:53)
[2017-10-07] MEDS: Spironolactone TAB* 25 MG PO SCH (09:05)
[2017-10-07] MEDS: Tamsulosin CAP* 0.4 MG PO SCH (09:05)
[2017-10-07] MEDS: Allopurinol TAB* 300 MG PO SCH (09:05)
--- NOTE | 2017-10-07 09:51 | PN ---
Progress Note - Progress Note Date of Service: 10/07/17 SOAP: Subjective: resting comfortably with complaints of burning pain left extremity Objective: Vital Signs Temp Pulse Resp BP Pulse Ox 98.4 F 96 19 123/65 93 10/07/17 07:50 10/07/17 08:24 10/07/17 08:24 10/07/17 07:50 10/07/17 08:24 Laboratory Last Values WBC 14.7 10^3/ul (3.5-10.8) H 10/06/17 06:23 RBC 3.75 10^6/ul (4.0-5.4) L 10/06/17 06:23 Hgb 9.9 g/dl (14.0-18.0) L 10/06/17 06:23 Hct 31 % (42-52) L 10/06/17 06:23 MCV 83 fL (80-94) 10/06/17 06:23 MCH 27 pg (27-31) 10/06/17 06:23 MCHC 32 g/dl (31-36) 10/06/17 06:23 RDW 17 % (10.5-15) H 10/06/17 06:23 Plt Count 611 10^3/ul (150-450) H 10/06/17 06:23 MPV 6.7 um3 (7.4-10.4) L 10/06/17 06:23 Neut % (Auto) 80.7 % (38-83) 10/06/17 06:23 Lymph % (Auto) 7.8 % (25-47) L 10/06/17 06:23 [place] % (Auto) 6.4 % (0-7) 10/06/17 06:23 Eos % (Auto) 4.4 % (0-6) 10/06/17 06:23 Baso % (Auto) 0.7 % (0-2) 10/06/17 06:23 Absolute Neuts (auto) 11.9 10^3/ul (1.5-7.7) H 10/06/17 06:23 Absolute Lymphs (auto) 1.2 10^3/ul (1.0-4.8) 10/06/17 06:23 Absolute Monos (auto) 0.9 10^3/ul (0-0.8) H 10/06/17 06:23 Absolute Eos (auto) 0.6 10^3/ul (0-0.6) 10/06/17 06:23 Absolute Basos (auto) 0.1 10^3/ul (0-0.2) 10/06/17 06:23 Absolute Nucleated RBC 0 10^3/ul 10/06/17 06:23 Immature Gran % 4 % (0-9) 10/06/17 06:23 Neutrophils % 77 % (38-83) 10/06/17 06:23 Band Neutrophils % 2 % (0-8) 10/06/17 06:23 Lymphocytes % 9 % (25-47) L 10/06/17 06:23 Monocytes % 4 % (0-7) 10/06/17 06:23 Eosinophils % 6 % (0-6) 10/06/17 06:23 Basophils % 0 % (0-2) 10/06/17 06:23 Metamyelocytes % 1 % (0-2) 10/06/17 06:23 Myelocytes % 1 % (0-1) 10/06/17 06:23 Nucleated RBC % 0 10/06/17 06:23 Abs Neuts (Manual) 11.3 10^3/ul (1.5-7.7) H 10/06/17 06:23 Abs Lymphs (Manual) 1.3 10^3/ul (1.0-4.8) 10/06/17 06:23 Abs Monocytes (Manual) 0.6 10^3/ul (0-0.8) 10/06/17 06:23 Absolute Eos (Manual) 0.9 10^3/ul (0-0.6) H 10/06/17 06:23 Abs Basophils (Manual) 0 10^3/ul (0-0.2) 10/06/17 06:23 Normal RBC Morphology Not Reportable 10/06/17 06:23 Polychromasia 1+ 10/06/17 06:23 Hypochromasia 1+ 10/06/17 06:23 Anisocytosis 1+ 10/04/17 09:54 Elliptocytes 1+ 10/06/17 06:23 Hem Pathologist Commnt 10/03/17 06:51 INR (Anticoag Therapy) 1.17 (0.77-1.02) H 10/02/17 16:04 APTT 32.8 seconds (26.0-36.3) 10/02/17 16:04 Sodium 129 mmol/L (139-145) L 10/06/17 06:23 Potassium 4.7 mmol/L (3.5-5.0) 10/06/17 06:23 Chloride 99 mmol/L (101-111) L 10/06/17 06:23 Carbon Dioxide 25 mmol/L (22-32) 10/06/17 06:23 Anion Gap 5 mmol/L (2-11) 10/06/17 06:23 BUN 36 mg/dL (6-24) H 10/06/17 06:23 Creatinine 0.87 mg/dL (0.67-1.17) 10/06/17 06:23 Est GFR ( Amer) 118.5 (>60) 10/06/17 06:23 Est GFR (Non-Af Amer) 92.1 (>60) 10/06/17 06:23 BUN/Creatinine Ratio 41.4 (8-20) H 10/06/17 06:23 Glucose 157 mg/dL (70-100) H 10/06/17 06:23 POC Glucose (mg/dL) 167 mg/dL (70-100) H 10/07/17 08:01 Uric Acid 6.9 mg/dL (4.4-7.6) 09/28/17 08:54 Calcium 8.2 mg/dL (8.6-10.3) L 10/06/17 06:23 Magnesium 1.9 mg/dL (1.9-2.7) 09/29/17 08:18 Total Bilirubin 0.60 mg/dL (0.2-1.0) 09/27/17 04:47 AST 50 U/L (13-39) H 09/27/17 04:47 ALT 78 U/L (7-52) H 09/27/17 04:47 Alkaline Phosphatase 359 U/L (34-104) H 09/27/17 04:47 C-Reactive Protein 151.32 mg/L (< 5.00) H 09/27/17 19:19 Total Protein 7.0 g/dL (6.4-8.9) 09/27/17 04:47 Albumin 2.7 g/dL (3.2-5.2) L 09/27/17 04:47 Globulin 4.3 g/dL (2-4) H 09/27/17 04:47 Albumin/Globulin Ratio 0.6 (1-3) L 09/27/17 04:47 Urine Color Yellow 09/27/17 04:47 Urine Appearance Clear 09/27/17 04:47 Urine pH 5.0 (5-9) 09/27/17 04:47 Ur Specific [place] 1.010 (1.010-1.030) 09/27/17 04:47 Urine Protein 1+(30 mg/dl) (Negative) A 09/27/17 04:47 Urine Ketones Negative (Negative) 09/27/17 04:47 Urine Blood 1+ (Negative) A 09/27/17 04:47 Urine Nitrate Negative (Negative) 09/27/17 04:47 Urine Bilirubin Negative (Negative) 09/27/17 04:47 Urine Urobilinogen Negative (Negative) 09/27/17 04:47 Ur Leukocyte Esterase Negative (Negative) 09/27/17 04:47 Urine WBC (Auto) Absent (Absent) 09/27/17 04:47 Urine RBC (Auto) Trace(0-2/hpf) (Absent) 09/27/17 04:47 Urine Bacteria Absent (Absent) 09/27/17 04:47 Urine Osmolality 384 mOsm/kg (150-1150) 09/28/17 12:08 Ur Random Sodium 37 mmol/L 09/28/17 12:08 Urine Glucose Negative (Negative) 09/27/17 04:47 Vancomycin Trough 12.0 mcg/mL 10/05/17 07:24 incision: c/d/i Assessment: s/p left BKA Plan: 1) heparin for DVT prophylaxis 2) PT/OT 3) Abx per ID 4) PICC line for tomorrow then transfer to [facility]
[2017-10-07] MEDS ORDERED: Gabapentin CAP(*) 100 MG ONE (11:10)
[2017-10-07] MEDS: Gabapentin CAP(*) 100 MG PO SCH ×2 (11:12→21:52)
--- NOTE | 2017-10-07 14:22 | PN ---
Subjective Date of Service: 10/07/17 Interval History: Patient was seen and examined at bedside. Reports doing well overall. He has occasional phantom pains to LLE, tolerable. He has no other complaints today. [facility], but unfortunately no beds were available, had to be postponed till Sunday. Family History: Unchanged from Admission Social History: Unchanged from Admission Past Medical History: Unchanged from Admission Objective Active Medications: Acetaminophen (Tylenol Tab*) 325 mg PO Q6H PRN PRN Reason: PAIN Last Admin: 09/27/17 12:08 Dose: 325 mg Albuterol (Ventolin 2.5 Mg/3 Ml Neb.Christy*) 2.5 mg INH Q4H PRN PRN Reason: SOB/WHEEZING Allopurinol (Zyloprim Tab*) 600 mg PO DAILY [facility] Last Admin: 10/07/17 09:05 Dose: 600 mg Atorvastatin Calcium (Lipitor*) 40 mg PO DAILY [facility] Last Admin: 10/07/17 09:05 Dose: 40 mg Bisacodyl (Dulcolax Supp*) 10 mg [place] DAILY PRN PRN Reason: CONSTIPATION Cholecalciferol (Vitamin D Tab*) 1,000 units PO DAILY [facility] Last Admin: 10/07/17 09:05 Dose: 1,000 units Dextrose (D50w Syringe 50 Ml*) 12.5 gm IV PUSH .FOR FS < 60 - SS PRN PRN Reason: FS < 60 Diphenhydramine HCl (Benadryl Po*) 25 mg PO Q6H PRN PRN Reason: ITCHING Last Admin: 10/07/17 05:24 Dose: 25 mg Docusate Sodium (Colace Cap*) 100 mg PO DAILY PRN PRN Reason: CONSTIPATION Last Admin: 10/02/17 20:54 Dose: 100 mg Gabapentin (Neurontin Cap(*)) 100 mg PO BID [facility] Last Admin: 10/07/17 11:12 Dose: 100 mg Guaifenesin (Mucinex*) 600 mg PO Q12H [facility] Last Admin: 10/07/17 05:21 Dose: Not Given Heparin Sodium (Porcine) (Heparin Vial(*)) 5,000 units SUBCUT Q8HR [facility] Last Admin: 10/07/17 05:26 Dose: 5,000 units Vancomycin HCl 1,250 mg/ (Sodium Chloride) 250 mls @ 166.667 mls/hr IVPB Q24H [facility] Last Admin: 10/07/17 09:04 Dose: 166.667 mls/hr Insulin Glargine (Lantus(*)) 44 units SUBCUT BEDTIME [facility] Last Admin: 10/06/17 20:32 Dose: 44 units Insulin Human Lispro (Humalog*) 0 units SUBCUT AC [facility] PRN Reason: Protocol Last Admin: 10/07/17 13:23 Dose: 2 unit Insulin Human Lispro (Humalog*) 10 units SUBCUT AC [facility] Last Admin: 10/07/17 13:23 Dose: 10 units Levothyroxine Sodium (Synthroid Tab*) 200 mcg PO DAILY@0600 [facility] Last Admin: 10/07/17 05:24 Dose: 200 mcg Lorazepam (Ativan Tab(*)) 1 mg PO Q6H PRN PRN Reason: ANXIETY Last Admin: 10/06/17 20:52 Dose: 1 mg Melatonin (Melatonin (Nf)) 3 mg PO BEDTIME PRN; Protocol PRN Reason: Sleep Last Admin: 10/06/17 20:52 Dose: 3 mg Metoprolol Tartrate (Lopressor Tab*) 25 mg PO BID [facility] Last Admin: 10/07/17 09:05 Dose: 25 mg Mometasone Furoate/Formoterol Fumar (Dulera 200/5 Mdi*) 2 puff INH BID [facility] PRN Reason: Protocol Last Admin: 10/07/17 08:21 Dose: 2 puff Nystatin (Nystatin Cream*) 1 applic TOPICAL BID [facility] Last Admin: 10/07/17 07:39 Dose: Not Given Nystatin (Nystatin Oint*) 1 applic TOPICAL TID [facility] Last Admin: 10/07/17 13:25 Dose: Not Given Oxycodone HCl (Roxycodone Tab*) 10 mg PO Q4H PRN PRN Reason: PAIN Last Admin: 10/07/17 09:55 Dose: 10 mg Pharmacy Consult (Vancomycin Per Pharmacy*) 1 note FOLLOW UP .VANC PER PHARMACY [facility] Pharmacy Profile Note (Vancomycin Trough Check) 1 note FOLLOW UP ONCE ONE Stop: 10/08/17 07:31 Polyethylene Glycol/Electrolytes (Miralax*) 17 gm PO BID [facility] Last Admin: 10/07/17 09:05 Dose: Not Given Senna (Senokot Tab*) 1 tab PO BEDTIME PRN PRN Reason: CONSTIPATION Last Admin: 09/30/17 20:39 Dose: 1 tab Simethicone (Mylicon Tab*) 80 mg PO Q8H PRN PRN Reason: NAUSEA Last Admin: 10/04/17 19:42 Dose: 80 mg Spironolactone (Aldactone Tab*) 50 mg PO DAILY [facility] Last Admin: 10/07/17 09:05 Dose: 50 mg Tamsulosin HCl (Flomax Cap*) 0.4 mg PO DAILY [facility] Last Admin: 10/07/17 09:05 Dose: 0.4 mg Vital Signs - 8 hr 10/07/17 10/07/17 10/07/17 07:38 07:50 08:00 Temperature 98.4 F Pulse Rate 88 Respiratory 18 18 18 Rate Blood Pressure 123/65 (mmHg) O2 Sat by Pulse 92 93 Oximetry 10/07/17 10/07/17 10/07/17 08:17 08:24 09:55 Temperature Pulse Rate 96 Respiratory 19 18 Rate Blood Pressure (mmHg) O2 Sat by Pulse 92 93 Oximetry 10/07/17 10/07/17 10/07/17 11:11 11:12 12:13 Temperature 99.1 F Pulse Rate 98 Respiratory 16 18 18 Rate Blood Pressure 136/69 (mmHg) O2 Sat by Pulse 93 Oximetry 10/07/17 13:25 Temperature Pulse Rate Respiratory 18 Rate Blood Pressure (mmHg) O2 Sat by Pulse Oximetry Oxygen Devices in Use Now: None, CPAP Appearance: Morbidly obese, appears comfortable and in NAD Eyes: No Scleral Icterus, PERRLA Ears/Nose/Mouth/Throat: Clear Oropharnyx, Mucous Membranes Moist Neck: NL Appearance and Movements; NL JVP, Trachea Midline Respiratory: Symmetrical Chest Expansion and Respiratory Effort, Clear to Auscultation Cardiovascular: NL Sounds; No Murmurs; No JVD, RRR Abdominal: NL Sounds; No Tenderness; No Distention Skin: No Rash or Ulcers Neurological: Alert and Oriented x 3, NL Sensation Lines/Tubes/Other Access: Clean, Dry and Intact Peripheral IV - Vanco infusing Nutrition: Taking PO's Result Diagrams: 10/06/17 06:23 10/06/17 06:23 Additional Lab and Data: Microbiology and Other Data: . Diagnostic Imaging: . EKG Data: . Assess/Plan/Problems-Billing Assessment: Mr. Anderson is a 51 yo male PMH diastolic CHF, morbid obesity, severe pHTN, IDDM, Afib on Xarelto, MRSA bacteremia and left ankle abscess/OM/charcot foot s/p long course of outpatient abx who p/w fall, tachycardia and swollen left ankle with MRSA bacteremia and osteomyelitis of left foot now s/p a transtibial amputation. - Patient Problems (1) Foot osteomyelitis, left Current Visit: Yes Status: Acute Priority: High Comment: - s/p transtibial amputation, POD #6 - Ortho and ID following - Continue pain meds prn with bowel regimen - Continue vancomycin, day 03/20. Will change to doxy after 14 days of vanco - PICC placement requested on Sunday, not available till Sunday evening. He has only 2 doses of Vanco left, will defer PICC placement for now since it will only be needed for a total of 2 infusions. - Can be discharged on PO Doxy [facility] - Will confirm with (2) Sepsis Current Visit: Yes Status: Acute Comment: - Improving (afebrile, tachycardia resolved) - Leukocytosis improving - Secondary to MRSA bacteremia from left foot osteomyelitis and cellulitis (3) MRSA (methicillin resistant Staphylococcus aureus) Current Visit: Yes Status: Chronic Comment: - MRSA bacteremia and wound infection - No evidence of vegetation noted on TTE - ID following, appreciate input - Continue vancomycin, then PO Doxy per ID recommendations (4) Anemia Current Visit: No Status: Chronic Comment: - Stable, chronic. (5) Atrial fibrillation Current Visit: No Status: Chronic Comment: - Sinus rhythm and rate controlled at this time - Continue metoprolol 25mg BID - Resume xarelto at discharge per ortho, SQ heparin for now (6) CKD (chronic kidney disease) stage 3, GFR 30-59 ml/min Current Visit: No Status: Chronic Comment: - Creatine at baseline, stable. (7) Diabetes mellitus Current Visit: No Status: Chronic Comment: - Glucose 130-170's - Continue Lantus 44 qhs, SSI coverage, and Lispro 10 units AC (8) Gout Current Visit: No Status: Chronic Comment: - Continue allopurinol 600mg daily (9) Hypertension Current Visit: No Status: Chronic Comment: - Normotensive - Continue metoprolol and spironolactone (10) Hypothyroid Current Visit: No Status: Chronic Comment: - TSH 08/2017, 4.56 - Continue levothryoxine (11) Morbid obesity Current Visit: No Status: Chronic Comment: - BMI ~ 47 - supportive care (12) Pulmonary embolism Current Visit: No Status: Chronic Comment: - Pt has h/o DVT/PE. - Resume xarelto at discharge per ortho, SQ heparin for now. (13) [place] infection of genital region Current Visit: Yes Status: Acute Comment: - Scrotal - Will start Nystatin - No c/o itching (14) Full code status Current Visit: Yes Status: Acute Comment: (15) DVT prophylaxis Current Visit: Yes Status: Acute Comment: -SCDs and SQ Heaprin, resume Xarelto at discharge per ortho Status and Disposition: Inpatient. Discharge when medically stable to [facility]. [facility], has to wait till Sunday.
[2017-10-07] MEDS: Acetaminophen TAB* 325 MG PO PRN (18:24)
[2017-10-07] MEDS: LORazepam TAB(*) 1 MG PO PRN (18:25)
[2017-10-07 20:44] LABS: Urine Appearance Clear; Urine Blood 2+ (Negative); Urine Color Yellow; Urine Ketones Negative (Negative); Urine Protein 1+(30 mg/dL) (Negative); Urine Specific Gravity 1.011 (1.010-1.030); Urine Urobilinogen Negative (Negative)
[2017-10-07] MEDS: Insulin GLARGINE(*) 1 UNITS UNIT SUBCUT SCH (21:53)
[2017-10-08] MEDS: Levothyroxine TAB* 100 MCG TAB PO SCH (06:28)
[2017-10-08] MEDS: guaiFENesin ER TAB 600 MG PO SCH (06:28)
[2017-10-08] MEDS: Heparin VIAL(*) 5000 UNITS/ML VIAL (FIVE THOUSAND) SUBCUT SCH ×2 (06:28→14:26)
[2017-10-08] MEDS: oxyCODONE TAB* 5 MG TAB PO PRN ×3 (06:28→15:16)
[2017-10-08] MEDS ORDERED: Vancomycin Trough Check NOTE FOLLOW UP ONE (07:30)
[2017-10-08] MEDS: Mometasone/Formoter 200/5 MDI INH SCH (07:39)
[2017-10-08] MEDS: Insulin LISPRO* 1 UNITS UNIT SUBCUT SCH ×5 (07:47→17:03)
[2017-10-08 07:49] LABS: Hematocrit 34 % (42-52); Hemoglobin 10.7 g/dl (14.0-18.0); Mean Corpuscular HGB Conc 32 g/dl (31-36); Mean Corpuscular Hemoglobin 26 pg (27-31); Mean Corpuscular Volume 83 fL (80-94); Mean Platelet Volume 6.9 um3 (7.4-10.4); Platelet Count 642 10^3/ul (150-450); Red Blood Count 4.05 10^6/ul (4.0-5.4); Red Cell Distribution Width 18 % (10.5-15); White Blood Count 14.1 10^3/ul (3.5-10.8)
[2017-10-08 07:51] LABS: EGFR Non-African American 89.8 (>60)
[2017-10-08] MEDS: Vancomycin(*) 1,250 MG in NS 0.9% 250 ML* 250 ML IVPB SCH ×2 (08:12→11:07)
[2017-10-08] MEDS: Polyethylene Glycol 3350* 17 GM PACKET PO SCH (08:13)
[2017-10-08] MEDS: Allopurinol TAB* 300 MG PO SCH (08:13)
[2017-10-08] MEDS: Tamsulosin CAP* 0.4 MG PO SCH (08:13)
[2017-10-08] MEDS: Atorvastatin* 40 MG TAB PO SCH (08:13)
[2017-10-08] MEDS: Spironolactone TAB* 25 MG PO SCH (08:14)
[2017-10-08] MEDS: Cholecalciferol TAB* 1000 UNITS PO SCH (08:14)
[2017-10-08] MEDS: Metoprolol Tartrate TAB* 25 MG PO SCH (08:14)
[2017-10-08] MEDS: Gabapentin CAP(*) 100 MG PO SCH (08:14)
[2017-10-08 08:19] LABS: ABS Basophils 0.1 10^3/ul (0-0.2); ABS Eosinophils 0.7 10^3/ul (0-0.6); ABS Lymphocytes 0.9 10^3/ul (1.0-4.8); ABS Monocytes 0.8 10^3/ul (0-0.8); ABS Neutrophils 11.5 10^3/ul (1.5-7.7); ABS Nucleated RBC 0 10^3/ul; Nucleated Red Blood Cells % 0
[2017-10-08 08:22] LABS: Monocytes % 0 % (0-7); Vancomycin Trough 13.8 mcg/mL
[2017-10-08] MEDS: diPHENhydraMINE PO* 25 MG PO PRN (08:26)
--- NOTE | 2017-10-08 08:45 | PN ---
Progress Note - Progress Note Date of Service: 10/08/17 SOAP: Subjective: 51 year old male s/p L BKA 10/[address] Muñoz. Patient reports having neurooathy type pain in BKA last night, now resolved. Also c/o pressure sensation at base of BKA. Ok with D/C today to [facility]. VSS afebrile overnight. WBC improving. states hasn't worked with PT over the weekend Objective: Gen[place]- Well appearing, resting in bed comfortably, NAD MSK- Dressing in place, no drainage. Vital Signs Temp 98.8 F 10/08/17 08:00 Pulse 87 10/08/17 08:00 Resp 18 10/08/17 08:26 BP 138/64 10/08/17 08:00 Pulse Ox 95 10/08/17 08:00 Intake & Output 10/07/17 10/08/17 10/08/17 18:59 06:59 18:59 Intake Total 1250 800 Output Total 1575 1225 300 Balance -325 -425 -300 Weight 155.99 kg Intake: Oral 1250 800 Output: Urine 1575 1225 300 Other: Date of Last Bowel 10/05/17 Movement # Voids 1 Assessment: s/p left BKA 10/01 Plan: 1) heparin for DVT prophylaxis in house, Xarelto at D/C 2) PT/OT- continue acute rehab 3) Abx per ID- vanco day 03/20; OK to switch to doxy today, wound cx's 10/01- normal malachi; MRSA + 4) placement--> [facility] Acetaminophen (Tylenol Tab*) 325 mg PO Q6H PRN PRN Reason: PAIN Last Admin: 10/07/17 18:24 Dose: 325 mg Albuterol (Ventolin 2.5 Mg/3 Ml Neb.Christy*) 2.5 mg INH Q4H PRN PRN Reason: SOB/WHEEZING Allopurinol (Zyloprim Tab*) 600 mg PO DAILY [facility] Last Admin: 10/08/17 08:13 Dose: 600 mg Atorvastatin Calcium (Lipitor*) 40 mg PO DAILY [facility] Last Admin: 10/08/17 08:13 Dose: 40 mg Bisacodyl (Dulcolax Supp*) [address] DAILY PRN PRN Reason: CONSTIPATION Cholecalciferol (Vitamin D Tab*) 1,000 units PO DAILY [facility] Last Admin: 10/08/17 08:14 Dose: 1,000 units Dextrose (D50w Syringe 50 Ml*) 12.5 gm IV PUSH .FOR FS < 60 - SS PRN PRN Reason: FS < 60 Diphenhydramine HCl (Benadryl Po*) 25 mg PO Q6H PRN PRN Reason: ITCHING Last Admin: 10/08/17 08:26 Dose: 25 mg Docusate Sodium (Colace Cap*) 100 mg PO DAILY PRN PRN Reason: CONSTIPATION Last Admin: 10/02/17 20:54 Dose: 100 mg Gabapentin (Neurontin Cap(*)) 100 mg PO BID [facility] Last Admin: 10/08/17 08:14 Dose: 100 mg Guaifenesin (Mucinex*) 600 mg PO Q12H [facility] Last Admin: 10/08/17 06:28 Dose: 600 mg Heparin Sodium (Porcine) (Heparin Vial(*)) 5,000 units SUBCUT Q8HR [facility] Last Admin: 10/08/17 06:28 Dose: 5,000 units Vancomycin HCl 1,250 mg/ (Sodium Chloride) 250 mls @ 166.667 mls/hr IVPB Q24H [facility] Last Admin: 10/07/17 09:04 Dose: 166.667 mls/hr Insulin Glargine (Lantus(*)) 44 units SUBCUT BEDTIME [facility] Last Admin: 10/07/17 21:53 Dose: 44 units Insulin Human Lispro (Humalog*) 0 units SUBCUT [facility] PRN Reason: Protocol Last Admin: 10/08/17 07:47 Dose: Not Given Insulin Human Lispro (Humalog*) 10 units SUBCUT [facility] Last Admin: 10/08/17 08:15 Dose: 10 units Levothyroxine Sodium (Synthroid Tab*) 200 mcg PO DAILY@0600 [facility] Last Admin: 10/08/17 06:28 Dose: 200 mcg Melatonin (Melatonin (Nf)) 3 mg PO BEDTIME PRN; Protocol PRN Reason: Sleep Last Admin: 10/06/17 20:52 Dose: 3 mg Metoprolol Tartrate (Lopressor Tab*) 25 mg PO BID [facility] Last Admin: 10/08/17 08:14 Dose: 25 mg Mometasone Furoate/Formoterol Fumar (Dulera 200/5 Mdi*) 2 puff INH BID [facility] PRN Reason: Protocol Last Admin: 10/08/17 07:39 Dose: 2 puff Nystatin (Nystatin Cream*) 1 applic TOPICAL BID [facility] Last Admin: 10/07/17 21:54 Dose: 1 top.gel Nystatin (Nystatin Oint*) 1 applic TOPICAL TID [facility] Last Admin: 10/07/17 19:59 Dose: 1 applic Oxycodone HCl (Roxycodone Tab*) 10 mg PO Q4H PRN PRN Reason: PAIN Last Admin: 10/08/17 06:28 Dose: 10 mg Pharmacy Consult (Vancomycin Per Pharmacy*) 1 note FOLLOW UP .VANC PER PHARMACY [facility] Polyethylene Glycol/Electrolytes (Miralax*) 17 gm PO BID [facility] Last Admin: 10/08/17 08:13 Dose: 17 gm Senna (Senokot Tab*) 1 tab PO BEDTIME PRN PRN Reason: CONSTIPATION Last Admin: 09/30/17 20:39 Dose: 1 tab Simethicone (Mylicon Tab*) 80 mg PO Q8H PRN PRN Reason: NAUSEA Last Admin: 10/04/17 19:42 Dose: 80 mg Spironolactone (Aldactone Tab*) 50 mg PO DAILY [facility] Last Admin: 10/08/17 08:14 Dose: 50 mg Tamsulosin HCl (Flomax Cap*) 0.4 mg PO DAILY [facility] Last Admin: 10/08/17 08:13 Dose: 0.4 mg
[2017-10-08] MEDS: Nystatin CREAM* 15 GM TUBE TOPICAL SCH (09:16)
[2017-10-08] MEDS: Nystatin OINT* 15 GM TOPICAL SCH ×2 (09:16→15:18)
[2017-10-08] MEDS ORDERED: DOXYcycline CAP(*) 100 MG PO SCH (11:00)
[2017-10-08] MEDS ORDERED: Rivaroxaban TAB(*) 10 MG PO SCH (15:00)
--- NOTE | 2017-10-08 15:41 | DS ---
AMENDED REPORT NOW INCLUDES COSIGNER DESIGNATION - ESIGNED BEFORE ADJUSTMENTS CC: Dr. Plasencia* DATE OF ADMISSION: 09/27/2017. DATE OF DISCHARGE: 10/08/2017. PRIMARY CARE PHYSICIAN: Dr. Lencho Plasencia. ATTENDING PHYSICIAN FOR THIS ADMISSION: Dr. Dennis Cervantes. MY ATTENDING PHYSICIAN FOR TODAY: Dr. Dennis Cervantes * (dictated by Elizabeth Hernandez NP). HOSPITAL COURSE: This is a 51-year-old male patient, well-known to our service who has been admitted multiple times for chronic left foot infection. The patient had had partial amputations in the past. He also has a history of super morbid obesity. The patient had been in [facility] being treated for osteomyelitis and the chronic infection of the left foot; however, he came to the emergency department to be evaluated after he had sustained a fall. At that time, the patient did not have any acute findings; however, subsequent to his admission, he had an abscess of that foot which was concerning for abscess. He does have documented history of Charcot foot and osteomyelitis. His CRP was elevated at 150. He was started empirically on Vancomycin. Both ID and Orthopedics were consulted. The patient also had a low sodium at that time which is chronic and was in chronic atrial fibrillation, rate controlled. The patient was evaluated by Dr. Rik Muñoz of the Orthopedic Service and at that point he had noted, given the MRI results, he had acute on chronic osteomyelitis and discussed with him the need for a transtibial amputation given these acute findings. Also of significant note, during his time at [facility] he had a 170 pound weight loss and prior to was chronic rate oxygen dependent secondary to obesity hypoventilation syndrome. This has since resolved with his weight loss; however, his infection, probably given his diabetes and poor vasculature, had never fully resolved. The patient was prepped for surgery by Orthopedics and underwent transtibial amputation of the left lower extremity on 10/01/2017. The patient had a relatively uneventful postoperative course. His pain was controlled. He was placed on Heparin for DVT prophylaxis. His Xarelto that he had been taking prior had been held; however, he is clear to restart his Xarelto which we will start today before he leaves. The patient had also been seen by Dr. Fierro from Infectious Disease who had the patient on Vancomycin since admission. There was some question of if he would need a PICC line given that he needed a complete 14 days of the Vancomycin ; however, we were not able to obtain PICC access for him this weekend. I discussed this with Dr. Fierro who was okay with the patient starting Doxycycline now by mouth and did not require to have a last dose of Vancomycin before leaving to go to rehab today. The patient was cleared by Infectious Disease and also by Dr. Muñoz and his team for discharge. DISCHARGE DIAGNOSES: 1. Acute on chronic osteomyelitis of the left lower extremity and foot with Charcot foot, status post transtibial amputation. 2. Sepsis with leukocytosis secondary to MRSA bacteremia and left foot osteomyelitis, now resolved. 3. MRSA infection with bacteremia now resolving. 4. Chronic anemia secondary to morbid obesity and chronic disease, stable. 5. Atrial fibrillation. Is now converted into sinus rhythm. He is rate controlled and stable, resume Xarelto. 6. Chronic kidney disease, stage 3. Creatinine is actually improved and his GFR is now improved from 52/54 range. GFR in the last couple of days has ranged between 89 and 103. 7. Insulin dependent diabetes mellitus, controlled on Lantus and Lispro. 8. History of gout, on Allopurinol. 9. History of hypertension, on Metoprolol and Spironolactone, stable. 10. History of hypothyroidism. TSH within normal range, continue Levothyroxine. 11. History of morbid obesity, BMI is down to 47. This is a huge improvement from previous. 12. History of pulmonary embolism. Xarelto will be resumed. 13. Scrotal gisel infection, on Nystatin. 14. Abdominal wall hernia, not incarcerated and that is stable. 15. Hyponatremia, chronic, asymptomatic. 16. Obstructive sleep apnea with history of obesity hypoventilation syndrome. Now off oxygen and wearing CPAP only at night. DISCHARGE MEDICATIONS: 1. Tylenol 325 mg q.6 hours as needed. 2. Albuterol q.4 hours as needed. 3. Allopurinol 600 mg daily. 4. Lipitor 40 mg daily. 5. Dulcolax 10 mg as needed. 6. Vitamin D 1,000 units daily. 7. Gabapentin 100 mg two times a day. 8. Guaifenesin 600 mg q.12 hours. 9. Xarelto 20 mg daily. 10. Lantus 44 units subcu at bedtime. 11. Lispro sliding scale coverage with 10 units before meals. 12. Synthroid 200 mcg p.o. daily. 13. Ativan 1 mg p.o. q.6 hours as needed. 14. Melatonin 3 mg at bedtime as needed. 15. Metoprolol Tartrate 25 mg p.o. b.i.d. 16. Dulera 20/5 two puffs b.i.d. 17. Nystatin topical as needed. 18. Oxycodone 10 mg p.o. q.4 hours. 19. Spironolactone 50 mg p.o. daily. 20. Flomax 0.4 mg daily. 21. Doxycycline 100 mg two times a day for 30 days. DISPOSITION: The patient will be discharged to [facility]. He is in stable condition. I had an extensive discussion with the patient and his regarding his disposition, plan, medications, and follow-ups. FOLLOW-UP: The patient needs physical therapy daily for strengthening on the left hip and thigh, nonweightbearing on the left lower extremity. Physical therapy for right shoulder tendonitis. Dressing on the left lower extremity to remain in place and untouched for one week until his follow-up with Dr. Muñoz. Dr. Muñoz will need to see the patient seven days for wound check. The patient can also follow-up with Dr. Lencho Plasencia, his primary care provider in one to two weeks after discharge from rehab on an as needed basis. The patient was discharged in stable condition. Transfer arrangements were made by case management. The patient and his state their understanding of the discharge process. The patient was encouraged at this point to continue to lose weight which he has been doing. He should be on a heart-healthy diet. He had some questions regarding his Lasix. For now with his sodium being so low, he is euvolemic and is not needing it and he does not appear to be fluid ____, but this is something which should be followed up on an outpatient basis either while he is at rehab or after he is discharged from rehab. I spent an excess of 60 minutes on this discharge explaining the plan of care to the patient and his , and also helping with case management to prepare him for this transfer. ELIZABETH HERNANDEZ, HAND LOOM WEAVER [id number]/[facility] #: [id number] [facility]ICAL CENTERKay
[2017-10-08 15:59] VITALS: BP 116/60
--- NOTE | 2017-10-08 16:30 | DCNOTE ---
Subjective Date of Service: 10/08/17 Interval History: Patient seen and examined. Ready for discharge, at bedside. No complaints today. Denies fever, chills, chest pain, SOB, n/v, had some urinary burning yesterday which has resolved. Family History: Unchanged from Admission Social History: Unchanged from Admission Past Medical History: Unchanged from Admission Objective Active Medications: Acetaminophen (Tylenol Tab*) 325 mg PO Q6H PRN PRN Reason: PAIN Last Admin: 10/07/17 18:24 Dose: 325 mg Albuterol (Ventolin 2.5 Mg/3 Ml Neb.Christy*) 2.5 mg INH Q4H PRN PRN Reason: SOB/WHEEZING Allopurinol (Zyloprim Tab*) 600 mg PO DAILY [facility] Last Admin: 10/08/17 08:13 Dose: 600 mg Atorvastatin Calcium (Lipitor*) 40 mg PO DAILY [facility] Last Admin: 10/08/17 08:13 Dose: 40 mg Bisacodyl (Dulcolax Supp*) 10 mg CA DAILY PRN PRN Reason: CONSTIPATION Cholecalciferol (Vitamin D Tab*) 1,000 units PO DAILY [facility] Last Admin: 10/08/17 08:14 Dose: 1,000 units Dextrose (D50w Syringe 50 Ml*) 12.5 gm IV PUSH .FOR FS < 60 - SS PRN PRN Reason: FS < 60 Diphenhydramine HCl (Benadryl Po*) 25 mg PO Q6H PRN PRN Reason: ITCHING Last Admin: 10/08/17 08:26 Dose: 25 mg Docusate Sodium (Colace Cap*) 100 mg PO DAILY PRN PRN Reason: CONSTIPATION Last Admin: 10/02/17 20:54 Dose: 100 mg Doxycycline Hyclate (Vibramycin Cap(*)) 100 mg PO BID [facility] Last Admin: 10/08/17 12:04 Dose: 100 mg Gabapentin (Neurontin Cap(*)) 100 mg PO BID [facility] Last Admin: 10/08/17 08:14 Dose: 100 mg Guaifenesin (Mucinex*) 600 mg PO Q12H [facility] Last Admin: 10/08/17 06:28 Dose: 600 mg Insulin Glargine (Lantus(*)) 44 units SUBCUT BEDTIME [facility] Last Admin: 10/07/17 21:53 Dose: 44 units Insulin Human Lispro (Humalog*) 0 units SUBCUT AC [facility] PRN Reason: Protocol Last Admin: 10/08/17 13:17 Dose: 3 unit Insulin Human Lispro (Humalog*) 10 units SUBCUT [facility] Last Admin: 10/08/17 13:19 Dose: 10 units Levothyroxine Sodium (Synthroid Tab*) 200 mcg PO DAILY@0600 [facility] Last Admin: 10/08/17 06:28 Dose: 200 mcg Melatonin (Melatonin (Nf)) 3 mg PO BEDTIME PRN; Protocol PRN Reason: Sleep Last Admin: 10/06/17 20:52 Dose: 3 mg Metoprolol Tartrate (Lopressor Tab*) 25 mg PO BID [facility] Last Admin: 10/08/17 08:14 Dose: 25 mg Mometasone Furoate/Formoterol Fumar (Dulera 200/5 Mdi*) 2 puff INH BID [facility] PRN Reason: Protocol Last Admin: 10/08/17 07:39 Dose: 2 puff Nystatin (Nystatin Cream*) 1 applic TOPICAL BID [facility] Last Admin: 10/08/17 09:16 Dose: Not Given Nystatin (Nystatin Oint*) 1 applic TOPICAL TID [facility] Last Admin: 10/08/17 15:18 Dose: 1 applic Oxycodone HCl (Roxycodone Tab*) 10 mg PO Q4H PRN PRN Reason: PAIN Last Admin: 10/08/17 15:16 Dose: 10 mg Polyethylene Glycol/Electrolytes (Miralax*) 17 gm PO BID [facility] Last Admin: 10/08/17 08:13 Dose: 17 gm Rivaroxaban (Xarelto(*)) 20 mg PO DAILY [facility] Last Admin: 10/08/17 15:16 Dose: 20 mg Senna (Senokot Tab*) 1 tab PO BEDTIME PRN PRN Reason: CONSTIPATION Last Admin: 09/30/17 20:39 Dose: 1 tab Simethicone (Mylicon Tab*) 80 mg PO Q8H PRN PRN Reason: NAUSEA Last Admin: 10/04/17 19:42 Dose: 80 mg Spironolactone (Aldactone Tab*) 50 mg PO DAILY [facility] Last Admin: 10/08/17 08:14 Dose: 50 mg Tamsulosin HCl (Flomax Cap*) 0.4 mg PO DAILY [facility] Last Admin: 10/08/17 08:13 Dose: 0.4 mg Vital Signs - 8 hr 10/08/17 10/08/17 10/08/17 08:26 09:17 10:33 Temperature Pulse Rate Respiratory 18 189 16 Rate Blood Pressure (mmHg) O2 Sat by Pulse Oximetry 10/08/17 10/08/17 10/08/17 11:05 11:06 11:10 Temperature 99.1 F Pulse Rate 81 Respiratory 18 16 17 Rate Blood Pressure 128/51 (mmHg) O2 Sat by Pulse 95 Oximetry 10/08/17 10/08/17 10/08/17 13:23 15:16 15:30 Temperature 98.8 F Pulse Rate 88 Respiratory 18 18 18 Rate Blood Pressure 116/60 (mmHg) O2 Sat by Pulse 94 Oximetry Oxygen Devices in Use Now: CPAP - CPAP at night only, off NC Appearance: Alert, NAD Eyes: No Scleral Icterus, PERRLA Ears/Nose/Mouth/Throat: NL Teeth, Lips, Gums, Clear Oropharnyx, Mucous Membranes Moist Neck: NL Appearance and Movements; NL JVP, Trachea Midline, No Thyroid Enlargement, Masses Respiratory: Symmetrical Chest Expansion and Respiratory Effort, Clear to Auscultation Cardiovascular: NL Sounds; No Murmurs; No JVD, RRR Abdominal: NL Sounds; No Tenderness; No Distention, - - large umbilical hernia, not incarcerated Extremities: - - left BKA Skin: - - LLE dressing CDI Neurological: Alert and Oriented x 3, NL Sensation Nutrition: Taking PO's Result Diagrams: 10/08/17 07:30 10/08/17 07:30 Additional Lab and Data: Microbiology and Other Data: . Diagnostic Imaging: . EKG Data: . Assess/Plan/Problems-Billing Assessment: Mr. Anderson is a 51 yo male H diastolic CHF, morbid obesity, severe pHTN, IDDM, Afib on Xarelto, MRSA bacteremia and left ankle abscess/OM/charcot foot s/p long course of outpatient abx who p/w fall, tachycardia and swollen left ankle with MRSA bacteremia and osteomyelitis of left foot now s/p a transtibial amputation. - Patient Problems (1) Status post below knee amputation of left lower extremity Code(s): Z89.512 - ACQUIRED ABSENCE OF LEFT LEG BELOW KNEE SNOMED Code(s): 291259459239054 Comment: - 2/2 charcot foot with acute on chronic osteomyelitis - Cleared by surgery for DC today - NWB - Wound check in 7 days (2) Foot osteomyelitis, left Code(s): M86.9 - OSTEOMYELITIS, UNSPECIFIED SNOMED Code(s): 3916262147221460 Comment: - s/p transtibial amputation, POD7 - Ortho and ID cleared for DC - Continue pain meds prn with bowel regimen - Vanco DC'd, doxycycline started today for 30 days, confirmed with Dr. Fierro (3) [place] infection of genital region Code(s): B37.49 - OTHER UROGENITAL CANDIDIASIS SNOMED Code(s): 368548606 Comment: - Scrotal - Nystatin PRN (4) Diabetes mellitus Status: Chronic Code(s): E11.9 - TYPE 2 DIABETES MELLITUS WITHOUT COMPLICATIONS SNOMED Code(s): 35720036 Comment: - Glucose 130-160's - Continue Lantus 44 qhs, SSI coverage, and Lispro 10 units AC (5) Gout Code(s): M10.9 - GOUT, UNSPECIFIED SNOMED Code(s): 00295445 Comment: - Continue allopurinol 600mg daily (6) Hypertension Code(s): I10 - ESSENTIAL (PRIMARY) HYPERTENSION SNOMED Code(s): 59060940 Comment: - Stable on metoprolol and spironolactone (7) Hypothyroid Code(s): E03.9 - HYPOTHYROIDISM, UNSPECIFIED SNOMED Code(s): 25852050 Comment: - TSH 08/2017, 4.56 - Continue levothryoxine (8) Morbid obesity Code(s): E66.01 - MORBID (SEVERE) OBESITY DUE TO EXCESS CALORIES SNOMED Code(s ): 590093239 Comment: - Recent weight loss of 170lbs - BMI ~ 47 - Continue supportive care (9) Pulmonary embolism Code(s): I26.99 - OTHER PULMONARY EMBOLISM WITHOUT ACUTE COR PULMONALE SNOMED Code(s): 48255926 Comment: - Pt has h/o DVT/PE - Xarelto resumed today, ok with surgery (10) PAF (paroxysmal atrial fibrillation) Code(s): I48.0 - PAROXYSMAL ATRIAL FIBRILLATION SNOMED Code(s): 826231575 Comment: - Currently isn RSR - Continue metoprolol for rate control - xarelto restarted today (11) VENTURA (obstructive sleep apnea) Code(s): G47.33 - OBSTRUCTIVE SLEEP APNEA (ADULT) (PEDIATRIC) SNOMED Code(s): 39848460 Comment: - With underlying COPD and obesity hypoventilation syndrome - Off O2 during the day since weight loss - Continue CPAP and night and nebs as needed - Pulmonary toilet (12) Hyponatremia Code(s): E87.1 - HYPO-OSMOLALITY AND HYPONATREMIA SNOMED Code(s): 38581009 Comment: - Acute on chronic - Restart aldactone - Continue fluid restriction - Monitor Na as outpatient (13) DVT prophylaxis Code(s): ZWA1613 - SNOMED Code(s): 494901593 Comment: - Restarted xarelto today (14) Full code status Code(s): Z78.9 - OTHER SPECIFIED HEALTH STATUS SNOMED Code(s): 432993381 Comment: Status and Disposition: DC to [facility] this afternoon.
== END 2017-10-08 17:50 | DRG 710 ==
LOC: ED 01:47 → MED 04:25 → ICU 10-01 12:02 → SSU 10-02 12:49
PROVIDERS: ADMIT Hospitalist; ATTEND Internal Medicine
PROC: 0Y6J0Z2 Detachment at Left Lower Leg, Mid, Open Approach (ICD-10-PCS; principal; 2017-10-01 08:00)
DX: A41.02 Sepsis due to Methicillin resistant Staphylococcus aureus (principal); I13.0 Hypertensive heart and chronic kidney disease with heart failure and stage 1 through stage 4 chronic kidney disease, or unspecified chronic kidney disease; J96.11 Chronic respiratory failure with hypoxia; E66.2 Morbid (severe) obesity with alveolar hypoventilation; I50.32 Chronic diastolic (congestive) heart failure; M86.172 Other acute osteomyelitis, left ankle and foot; M86.672 Other chronic osteomyelitis, left ankle and foot; E87.1 Hypo-osmolality and hyponatremia; B37.49 Other urogenital candidiasis; Z68.42 Body mass index [BMI] 45.0-49.9, adult; E78.00 Pure hypercholesterolemia, unspecified; J44.9 Chronic obstructive pulmonary disease, unspecified; M10.9 Gout, unspecified; M19.90 Unspecified osteoarthritis, unspecified site; E11.22 Type 2 diabetes mellitus with diabetic chronic kidney disease; E11.610 Type 2 diabetes mellitus with diabetic neuropathic arthropathy; E11.69 Type 2 diabetes mellitus with other specified complication; E11.40 Type 2 diabetes mellitus with diabetic neuropathy, unspecified; E11.51 Type 2 diabetes mellitus with diabetic peripheral angiopathy without gangrene; S39.012A Strain of muscle, fascia and tendon of lower back, initial encounter; W01.0XXA Fall on same level from slipping, tripping and stumbling without subsequent striking against object, initial encounter; N18.3 Chronic kidney disease, stage 3 (moderate); E03.9 Hypothyroidism, unspecified; E86.0 Dehydration; I48.0 Paroxysmal atrial fibrillation; K59.00 Constipation, unspecified; G89.29 Other chronic pain; D63.1 Anemia in chronic kidney disease; K43.9 Ventral hernia without obstruction or gangrene; M75.91 Shoulder lesion, unspecified, right shoulder; R22.2 Localized swelling, mass and lump, trunk; I27.20 Pulmonary hypertension, unspecified; E87.5 Hyperkalemia; Z99.3 Dependence on wheelchair; Z89.421 Acquired absence of other right toe(s); Z86.14 Personal history of Methicillin resistant Staphylococcus aureus infection; Z83.3 Family history of diabetes mellitus; Z88.1 Allergy status to other antibiotic agents; Z86.718 Personal history of other venous thrombosis and embolism; Z86.711 Personal history of pulmonary embolism; Z99.81 Dependence on supplemental oxygen; Z82.49 Family history of ischemic heart disease and other diseases of the circulatory system; Z87.891 Personal history of nicotine dependence; Y92.091 Bathroom in other non-institutional residence as the place of occurrence of the external cause; Z79.01 Long term (current) use of anticoagulants; Z79.4 Long term (current) use of insulin; Z79.51 Long term (current) use of inhaled steroids
CPT/HCPCS: 36415; 70450; 72131; 80048; 80053; 80202; 81003; 81015; 82565; 83735; 83935; 84300; 84520; 84550; 85025; 85060; 85610; 85730; 86140; 87040; 87070; 87073; 87077; 87150; 87186; 87205; 87641; 88307; 88311; 93005; 93306; 94640; 99284; A9270-GY; C8929; G8978-GP-CL; G8978-GP-CM; G8979-GP-CI; G8987-GO-CM; G8988-GO-CJ; G8989-GO-CJ; J1170; J1644; J2250; J2704; J3010; J3370; J3475

== ENCOUNTER 2018-08-23 13:03 | Inpatient (IN) | payer BC, MEDICARE ==
--- NOTE | 2018-08-23 14:03 | ED ---
Shortness of Breath - HPI Summary HPI Summary: Pt is a 52 y/o M presenting to the ED with a chief complaint of shortness of breath onset about 1 month ago. He has nebulizers at home that he uses, but it has progressively gotten worse. This morning, he experienced chest heaviness where he felt dizzy and like he couldnt get any air in. He also has had fluid leaking from his abd for a few days. - History of Current Complaint Chief Complaint: EDShortnessOfBreath Time Seen by Provider: 08/23/18 13:06 Hx Obtained From: Patient Onset/Duration: Gradual Onset, Lasting Weeks, Still Present Timing: Constant Current Severity: Moderate Dyspnea At: Rest Aggrevating Factors: Movement Alleviating Factors: Oxygen - Allergy/Home Medications Allergies/Adverse Reactions: Allergies Allergy/AdvReac Type Severity Reaction Status Date / Time tigecycline Allergy Rash Verified 09/27/17 01:55 Home Medications: Home Medications Acetaminophen [Acetaminophen Extra Strength] 1,000 mg PO Q6HR PRN 08/23/18 [ History Confirmed 08/23/18] Cholecalciferol (Vitamin D3) [Vitamin D3] 400 unit PO DAILY 08/23/18 [History Confirmed 08/23/18] Esomeprazole(NF) [NEXium(NF)] 20 mg PO DAILY 08/23/18 [History Confirmed ] Insulin GLARGINE(*) [Lantus(*)] 65 units SUBCUT BEDTIME 08/23/18 [History Confirmed 08/23/18] Insulin LISPRO* [HumaLOG*] 15 units SUBCUT TID 08/23/18 [History Confirmed 08/23] Levothyroxine TAB* [Synthroid TAB*] 25 mcg PO DAILY 08/23/18 [History Confirmed 08/23/18] Levothyroxine TAB* [Synthroid TAB*] 200 mcg PO DAILY 08/23/18 [History Confirmed 08/23/18] Multivitamins/Minerals TAB* [Theragran/minerals TAB*] 1 tab PO DAILY 08/23/18 [ History Confirmed 08/23/18] Naproxen Sodium [Naproxen 220 mg] 220 mg PO Q8HR PRN 08/23/18 [History Confirmed 08/23/18] Rivaroxaban TAB(*) [Xarelto 20 mg] 20 mg PO DAILY 08/23/18 [History Confirmed ] Saline NASAL SPRAY 0.65%* [Sodium Chloride 0.65% Nasal [place]*] 1 spray BOTH NARES Q4H PRN 08/23/18 [History Confirmed 08/23/18] Torsemide TAB* [Demadex 20 MG*] 40 mg PO BID 08/23/18 [History Confirmed ] metFORMIN* [Glucophage 500 MG TAB *] 500 mg PO DAILY WITH MEAL 08/23/18 [ History Confirmed 08/23/18] PMH/Surg Hx/FS Hx/Imm Hx Previously Healthy: No Endocrine/Hematology History: Reports: Hx Diabetes, Hx Thyroid Disease, Hx Anemia Cardiovascular History: Reports: Hx Atrial Fibrillation, Hx Congestive Heart Failure, Hx Deep Vein Thrombosis, Hx Embolism, Hx Hypercholesterolemia, Hx Hypertension, Hx Peripheral Vascular Disease, Other Cardiovascular Problems/ Disorders - cardiomyopathy, IDDM, CHRONIC RENAL FAILURE, MORBID OBESITY Denies: Hx Pacemaker/ICD Respiratory History: Reports: Hx Asthma, Hx Chronic Obstructive Pulmonary Disease (COPD) - on 5L home O2, Hx Pneumonia, Hx Pulmonary Embolism, Hx Sleep Apnea - compliant with cpap, Other Respiratory Problems/Disorders - SLEEP APNEA History: Reports: Hx Chronic Renal Failure Denies: Hx Renal Disease Comment Only: Other Problems/Disorders - CKD Musculoskeletal History: Reports: Hx Arthritis, Hx Back Problems, Hx Gout Sensory History: Denies: Hx Cataracts, Hx Contacts or Glasses, Hx Eye Injury, Hx Hearing Aid, Hx Hearing Problem, Other Sensory Impairments Opthamlomology History: Denies: Hx Cataracts, Hx Contacts or Glasses, Hx Eye Injury, Other Sensory Impairments Psychiatric History: Denies: Hx Panic Disorder - Surgical History Surgery Procedure, Year, and Place: WOUND DEBRIDING 1989, R 2nd toe amputation, 2017. 09/2017 Rt BKA ( AWAITING PROSTHESIS) - Immunization History Date of Tetanus Vaccine: utd Date of Influenza Vaccine: fall 2014 Infectious Disease History: No Infectious Disease History: Reports: Hx of Known/Suspected MRSA, Traveled Outside the [place] in Last 30 Days Denies: Hx Shingles, Hx Tuberculosis, History Other Infectious Disease - Family History Known Family History: Positive: Unknown, Cardiac Disease, Diabetes - Social History Alcohol Use: None Hx Substance Use: No Substance Use Type: Reports: None Hx Tobacco Use: Yes Smoking Status (MU): Former Smoker Type: Cigars Review of Systems Positive: Chest Pain - heaviness Positive: Shortness Of Breath Neurological: Other - dizziness All Other Systems Reviewed And Are Negative: Yes Physical Exam - Summary Physical Exam Summary: Appearance: The patient is morbidly obese, in no acute distress and in no acute pain. Skin: The skin is warm and dry and skin color reflects adequate perfusion. HEENT: The head is normocephalic and atraumatic. The pupils are equal and reactive. The conjunctivae are clear and without drainage. Nares are patent and without drainage. Mouth reveals moist mucous membranes and the throat is without erythema and exudate. The external ears are intact. The ear canals are patent and without drainage. The tympanic membranes are intact. Neck: The neck is supple with full range of motion and non-tender. There are no carotid bruits. There is no neck vein distension. Respiratory: Chest is non-tender. Lungs are clear to auscultation and breath sounds are symmetrical and equal. Cardiovascular: Heart is regular rate and rhythm. There is no murmur or rub auscultated. There is no peripheral edema and pulses are symmetrical and equal. Abdomen: The abdomen is soft and non-tender. There are normal bowel sounds heard in all four quadrants and there is no organomegaly palpated. He has a small papule on his R anterior lower abd. Musculoskeletal: There is no back tenderness noted. Extremities are non-tender with full range of motion. There is good capillary refill. There is no peripheral edema or calf tenderness elicited. Neurological: Patient is alert and oriented to person, place and time. The patient has symmetrical motor strength in all four extremities. Cranial nerves are grossly intact. Deep tendon reflexes are symmetrical and equal in all four extremities. Psychiatric: The patient has an appropriate affect and does not exhibit any anxiety or depression. Triage Information Reviewed: Yes Vital Signs On Initial Exam: Initial Vitals Temp Pulse Resp BP Pulse Ox 97.7 F 124 17 149/100 97 08/23/18 13:05 08/23/18 13:05 08/23/18 13:05 08/23/18 13:05 08/23/18 13:05 Vital Signs Reviewed: Yes Diagnostics - Vital Signs Vital Signs Temp Pulse Resp BP Pulse Ox 08/23/18 13:05 97.7 F 124 17 149/100 97 - Laboratory Result Diagrams: 08/23/18 14:14 08/23/18 14:14 Lab Statement: Any lab studies that have been ordered have been reviewed, and results considered in the medical decision making process. - Radiology CXR Radiology Interpretation Completed By: Radiologist Summary of Radiographic Findings: Cardiomegaly with pulmonary interstitial edema. ED physician has reviewed this report. - EKG 1424 Cardiac Rate: Other Rate - 120bpm - narrow complex tachycardia EKG Rhythm: Sinus Tachycardia - narrow complex tachycardia ST Segment: Non-Specific Ectopy: None Course/Dx - Course Course Of Treatment: Mr. Anderson experienced chest pressure and shortness of breath this morning a couple of times. The ambulance was called and administered a nebulizer treatment which he says helped. He does have a nebulizer at home and has used it. He has a BMI of 70 and multiple medical problems. His chest x-ray revealed some CHF although his BNP was only mildly elevated. He has a long medical problem list but CHF is not on it. The hospitalist were contacted for admission. - Diagnoses Provider Diagnoses: CHF (congestive heart failure) Discharge - Sign-Out/Discharge Documenting (check all that apply): Patient Departure - Discharge Plan Condition: Stable Disposition: ADMITTED TO [facility] Referrals: Session Rahul PERDOMO [Primary Care Provider] - - Billing Disposition and Condition Condition: STABLE Disposition: Admitted to [facility] - Attestation Statements Document Initiated by Rishabh: Yes Documenting Scribe: Madalyn Crenshaw Provider For Whom Rishabh is Documenting (Include Credential): Tobin Cordero MD. Scribe Attestation: Madalyn Obrein, scribed for Tobin Cordero MD. on 08/23/18 at 1836. Scribe Documentation Reviewed: Yes Provider Attestation: The documentation as recorded by the scribe, Madalyn Crenshaw accurately reflects the service I personally performed and the decisions made by me, Tobin Cordero MD. Status of Scribe Document: Viewed Consult Consult: [id number] - Spoke with Dr. Gutierrez about the pt's present condition who will be accepting the pt to the hospital.
[2018-08-23 14:38] LABS: Albumin 3.6 g/dL (3.2-5.2); Albumin/Globulin Ratio 1.3 (1-3); BUN/Creatinine Ratio 49.2 (8-20); Calcium 9.1 mg/dL (8.6-10.3); EGFR African American 68.7 (>60); EGFR Non-African American 56.7 (>60); Globulin 2.8 g/dL (2-4); Total Bilirubin 0.9 mg/dL (0.2-1.0); Total Protein 6.4 g/dL (6.4-8.9)
[2018-08-23 14:40] LABS: Troponin I 0.03 ng/mL (<0.04)
[2018-08-23 14:41] LABS: INR 1.7 (0.77-1.02)
[2018-08-23 14:51] LABS: Potassium 5.4 mmol/L (3.5-5.0)
[2018-08-23 14:52] LABS: ABS Basophils 0.1 10^3/ul (0-0.2); ABS Eosinophils 0.3 10^3/ul (0-0.6); ABS Lymphocytes 0.4 10^3/ul (1.0-4.8); ABS Monocytes 0.5 10^3/ul (0-0.8); ABS Neutrophils 7.1 10^3/ul (1.5-7.7); ABS Nucleated RBC 0 10^3/ul; Hematocrit 35 % (36-46); Hemoglobin 10.8 g/dL (14.0-18.0); Lymphocyte % 5.2 %; Mean Corpuscular HGB Conc 31 g/dL (31-36); Mean Corpuscular Hemoglobin 28 pg (27-31); Mean Corpuscular Volume 89 fL (80-94); Mean Platelet Volume 8.7 fL (7.4-10.4); Nucleated Red Blood Cells % 0; Platelet Count 254 10^3/uL (150-450); Red Blood Count 3.91 10^6 /uL (4.18-5.48); Red Cell Distribution Width 19 % (10.5-15); White Blood Count 8.5 10^3/uL (3.5-10.8)
[2018-08-23 15:07] LABS: TSH (Thyroid Stimulating Horm) 5.51 mcIU/mL (0.34-5.60)
[2018-08-23] MEDS ORDERED: Saline NASAL SPRAY 0.65%* BTL BOTH NARES PRN (18:02)
[2018-08-23] MEDS ORDERED: NAPROXEN SODIUM 220 MG PO PRN (18:02)
--- NOTE | 2018-08-23 18:17 | ADMNOTE ---
Subjective Date of Service: 08/23/18 Interval History: ADMISSION HSTORY AND PHYSICAL EXAM: Allergies Allergy/AdvReac Type Severity Reaction Status Date / Time tigecycline Allergy Rash Verified 09/27/17 01:55 Home Medications Medication Instructions Recorded Confirmed Type Albuterol HFA INHALER* [Ventolin 1 puff INH Q4H PRN 07/24/17 08/23/18 History HFA Inhaler*] Allopurinol TAB* [Zyloprim 300 MG 600 mg PO DAILY 07/24/17 08/23/18 History TAB*] Atorvastatin* [Lipitor 40 MG*] 40 mg PO DAILY 07/24/17 08/23/18 History Budesonide/Formote 160/4.5(NF) 2 puff INH BID 07/24/17 08/23/18 History [Symbicort 160/4.5 (NF)] Metoprolol Tartrate TAB* 25 mg PO BID 07/24/17 08/23/18 History [Lopressor TAB*] Spironolactone TAB* [Aldactone TAB 50 mg PO DAILY 07/24/17 08/23/18 History 25 MG*] Tamsulosin CAP* [Flomax CAP*] 0.4 mg PO DAILY cap 08/08/17 08/23/18 Rx Acetaminophen [Acetaminophen Extra 1,000 mg PO Q6HR PRN 08/23/18 08/23/18 History Strength] Cholecalciferol (Vitamin D3) 400 unit PO DAILY 08/23/18 08/23/18 History [Vitamin D3] Esomeprazole(NF) [NEXium(NF)] 20 mg PO DAILY 08/23/18 08/23/18 History Insulin GLARGINE(*) [Lantus(*)] 65 units SUBCUT BEDTIME 08/23/18 08/23/18 History Insulin LISPRO* [HumaLOG*] 15 units SUBCUT TID 08/23/18 08/23/18 History Levothyroxine TAB* [Synthroid TAB*] 25 mcg PO DAILY 08/23/18 08/23/18 History Levothyroxine TAB* [Synthroid TAB*] 200 mcg PO DAILY 08/23/18 08/23/18 History Multivitamins/Minerals TAB* 1 tab PO DAILY 08/23/18 08/23/18 History [Theragran/minerals TAB*] Naproxen Sodium [Naproxen 220 mg] 220 mg PO Q8HR PRN 08/23/18 08/23/18 History Rivaroxaban TAB(*) [Xarelto 20 mg] 20 mg PO DAILY 08/23/18 08/23/18 History Saline NASAL SPRAY 0.65%* [Sodium 1 spray BOTH NARES Q4H PRN 08/23/18 08/23/18 History Chloride 0.65% Nasal [place]*] Torsemide TAB* [Demadex 20 MG*] 40 mg PO BID 08/23/18 08/23/18 History metFORMIN* [Glucophage 500 MG TAB 500 mg PO DAILY WITH MEAL 08/23/18 08/23/18 History *] HPI: The patient has had gradually worsening PEPPER for several months, and increasing total body edema. Occ cough with yellow sputum, pretty much constant for him. He has gotten several courses of antibiotics for his cough over the past few months. No chest pain. He was discharged from the SNF in 04/2018. Family History: Findings - fibromyalgia, DM, heart disease in parents. Social History: Findings - Quit smoking over 20 yrs ago. No alcohol use. 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 Lives with his who is his SDM. 1 child. Past Medical History: Findings - MO, VENTURA, Afib, DM, DVT/PE, CKD, HL, hypothyroid , gout, PVD, HTN, L BKA Review of Systems - Measurements Intake and Output: Intake and Output Last 24 Hours 08/21/18 08/22/18 08/23/18 08/24/18 06:59 06:59 06:59 06:59 Weight 516 lb 12.8 oz - Review of Systems Constitutional Symptoms: Positive: Weight Gain - He can't weigh himself Dermatology: Positive: Rash - chronic eryrhema of RLE HEENT: Positive: Normal Eyes: Positive: Normal Thyroid: Positive: Primary Hypothyroidism Pulmonary: Positive: Cough, COPD, Exercise Intolerance Cardiology: Positive: Other - hx A fib Gastroenterology: Positive: Normal Genital - Urinary: Positive: Normal Musculoskeletal: Positive: Joint Pain Endocrinology: Positive: Thyroid Problems, Diabetes Mellitus Hematologic/Lymphatic: Positive: Anemia Neurology: Positive: Normal Psychiatry: Positive: Normal Allergic/Immunologic: Negative: Hx Anaphylaxis, Hx Angioedema, Hx Environmental, Hx Seasonal, Athsma, Hx HIV, Immunocompromise, Swollen Glands LymphNodes, Other Objective Active Medications: Albuterol (Ventolin Hfa Inhaler*) 1 puff INH Q4H PRN PRN Reason: SOB/WHEEZING Allopurinol (Zyloprim Tab*) 600 mg PO DAILY [facility] Atorvastatin Calcium (Lipitor*) 40 mg PO DAILY [facility] Budesonide/Formoterol Fumarate (Symbicort 160/4.5 (Nf)) 2 puff INH BID [facility]; Protocol Cholecalciferol (Vitamin D Tab*) 400 unit PO DAILY [facility] Esomeprazole Magnesium (Nexium(Nf)) 20 mg PO DAILY [facility]; Protocol Furosemide (Lasix Iv*) 80 mg IV Q12H [facility] Insulin Glargine (Lantus(*)) 50 units SUBCUT BEDTIME [facility] Insulin Human Lispro (Humalog*) 15 units SUBCUT TID [facility] Levothyroxine Sodium (Synthroid Tab*) 200 mcg PO DAILY [facility] Levothyroxine Sodium (Synthroid Tab*) 25 mcg PO DAILY [facility] Metformin HCl (Glucophage*) 500 mg PO DAILY WITH MEAL [facility] Metoprolol Tartrate (Lopressor Tab*) 25 mg PO BID [facility] Non-Formulary Medication (Acetaminophen [Acetaminophen Extra Strength]) 1,000 mg PO Q6HR PRN PRN Reason: FEVER/PAIN Non-Formulary Medication (Naproxen Sodium [Naproxen 220 Mg]) 220 mg PO Q8HR PRN PRN Reason: PAIN Rivaroxaban (Xarelto(*)) 20 mg PO DAILY [facility] Sodium Chloride (Sodium Chloride 0.65% Nasal [place]*) 1 spray BOTH NARES Q4H PRN PRN Reason: CONGESTION Tamsulosin HCl (Flomax Cap*) 0.4 mg PO DAILY [facility] Vital Signs - 8 hr 08/23/18 08/23/18 08/23/18 13:05 14:05 14:31 Temperature 97.7 F Pulse Rate 124 123 122 Respiratory 17 18 19 Rate Blood Pressure 149/100 134/78 (mmHg) O2 Sat by Pulse 97 97 99 Oximetry 08/23/18 08/23/18 08/23/18 14:54 15:01 15:24 Temperature Pulse Rate 123 120 123 Respiratory 25 16 28 Rate Blood Pressure 149/89 142/78 (mmHg) O2 Sat by Pulse 97 97 96 Oximetry 08/23/18 08/23/18 08/23/18 15:54 16:01 16:24 Temperature Pulse Rate 121 124 119 Respiratory 14 13 18 Rate Blood Pressure 137/86 141/84 (mmHg) O2 Sat by Pulse 99 98 97 Oximetry 08/23/18 08/23/18 08/23/18 16:54 17:00 17:24 Temperature Pulse Rate 122 86 122 Respiratory 18 15 17 Rate Blood Pressure 146/83 147/83 (mmHg) O2 Sat by Pulse 98 97 98 Oximetry Oxygen Devices in Use Now: Nasal Cannula Appearance: Alert, partly up on ED stretcher. In fair spirits. Looks comfortable. Eyes: No Scleral Icterus Respiratory: Symmetrical Chest Expansion and Respiratory Effort, Clear to Auscultation, Clear to Percussion, - Cardiovascular: NL Sounds; No Murmurs; No JVD, RRR, No Edema, - - distant sounds Extremities: No Clubbing, Cyanosis - massive edema trunk, abdominal wall. 2+ edema LE's Skin: No Nodules or Sclerosis, - - scattered 2-4 mm red areas RLE,chronic per Neurological: Alert and Oriented x 3, NL Sensation Result Diagrams: 08/23/18 14:14 08/23/18 14:14 Assess/Plan/Problems-Billing Assessment: - Patient Problems (1) Acute on chronic diastolic (congestive) heart failure Current Visit: No Status: Acute Priority: High Code(s): I50.33 - ACUTE ON CHRONIC DIASTOLIC (CONGESTIVE) HEART FAILURE SNOMED Code(s): 071663600 Comment: Start furosemide 80 mg IV q 12 hr, requested strict I&O's. Plan to titrate dose to a significant neg fluid balance, then convert to torsemide dose daily in the evening (per patient request) to assess effective oral dose. (2) Hyperkalemia Current Visit: No Status: Acute Code(s): E87.5 - HYPERKALEMIA SNOMED Code( s): 43711232 Comment: Stop spironolactone, repeat BMP in 36 hrs. (3) VENTURA (obstructive sleep apnea) Current Visit: No Status: Acute Code(s): G47.33 - OBSTRUCTIVE SLEEP APNEA ( ADULT) (PEDIATRIC) SNOMED Code(s): 98401900 Comment: - Continue his own CPAP, uses O2 at 5 L at home. (4) Atrial fibrillation Current Visit: No Status: Chronic Code(s): I48.91 - UNSPECIFIED ATRIAL FIBRILLATION SNOMED Code(s): 09095694 Comment: - Continue metoprolol 25mg BID, rovaroxaban. (5) CKD (chronic kidney disease) stage 3, GFR 30-59 ml/min Current Visit: No Status: Chronic Code(s): N18.3 - CHRONIC KIDNEY DISEASE, STAGE 3 (MODERATE) SNOMED Code(s): 602990997 Comment: est GFR 56.7 08/23. (6) Diabetes mellitus Current Visit: No Status: Chronic Code(s): E11.9 - TYPE 2 DIABETES MELLITUS WITHOUT COMPLICATIONS SNOMED Code(s): 85080689 Comment: Reduce Lantus dose from home dose, continue 15 U ac, FS QID with parameters. (7) Gout Current Visit: No Status: Chronic Code(s): M10.9 - GOUT, UNSPECIFIED SNOMED Code(s): 83832821 Comment: - Continue allopurinol 600mg daily (8) Hypothyroid Current Visit: No Status: Chronic Code(s): E03.9 - HYPOTHYROIDISM, UNSPECIFIED SNOMED Code(s): 87241922 Comment: - TSH wnl 08/23/18. - Continue levothryoxine (9) Morbid obesity Current Visit: No Status: Chronic Code(s): E66.01 - MORBID (SEVERE) OBESITY DUE TO EXCESS CALORIES SNOMED Code(s): 510778340 Comment: BMI 70.1 08/23/18.
[2018-08-23] MEDS: Furosemide IV* 10 MG/ML 10 ML VIAL (100 MG) IV SCH (18:38)
[2018-08-23] MEDS ORDERED: Acetaminophen TAB* 325 MG PO PRN (20:04)
[2018-08-23] MEDS: Albuterol HFA INHALER* 8 gm MDI INH PRN (21:33)
[2018-08-23] MEDS: Mometasone/Formoter 200/5 MDI INH SCH (21:35)
[2018-08-23] MEDS: Insulin GLARGINE(*) 1 UNITS UNIT SUBCUT SCH (22:05)
[2018-08-23] MEDS: Metoprolol Tartrate TAB* 25 MG PO SCH (22:05)
[2018-08-24] MEDS: Levothyroxine TAB* 100 MCG TAB PO SCH (05:51)
[2018-08-24] MEDS: Levothyroxine TAB* 25 MCG TAB PO SCH (05:51)
[2018-08-24] MEDS: Furosemide IV* 10 MG/ML 10 ML VIAL (100 MG) IV SCH (05:52)
[2018-08-24] MEDS: Mometasone/Formoter 200/5 MDI INH SCH ×2 (07:18→20:10)
[2018-08-24] MEDS ORDERED: Insulin LISPRO* 1 UNITS UNIT SUBCUT SCH (07:30)
[2018-08-24] MEDS ORDERED: Furosemide IV* 10 MG/ML 10 ML VIAL (100 MG) IV ONE (08:51)
[2018-08-24] MEDS: Albuterol HFA INHALER* 8 gm MDI INH PRN (09:09)
[2018-08-24] MEDS: Atorvastatin* 40 MG TAB PO SCH (09:11)
[2018-08-24] MEDS: Metoprolol Tartrate TAB* 25 MG PO SCH ×2 (09:11→20:57)
[2018-08-24] MEDS: Cholecalciferol TAB* 400 UNIT PO SCH (09:11)
[2018-08-24] MEDS: Tamsulosin CAP* 0.4 MG PO SCH (09:11)
[2018-08-24] MEDS: Pantoprazole TAB * 40 MG TAB PO SCH (09:11)
[2018-08-24] MEDS: metFORMIN* 500 MG TAB PO SCH (09:11)
[2018-08-24] MEDS: Allopurinol TAB* 300 MG PO SCH (09:11)
[2018-08-24] MEDS: Rivaroxaban TAB(*) 20 MG TAB PO SCH (09:12)
[2018-08-24] MEDS: Metolazone TAB* 5 MG PO SCH ×3 (10:29→16:50)
[2018-08-24] MEDS: Albuterol/Ipratropium NEB.SOL* Albuterol 2.5 MG/Ipratropium 0.5 MG 3 ML INH PRN ×2 (10:37→17:52)
[2018-08-24] MEDS: Insulin LISPRO* 1 UNITS UNIT SUBCUT SCH ×2 (12:22→16:49)
[2018-08-24] MEDS: Naproxen TAB* 250 MG PO PRN (13:16)
[2018-08-24] MEDS: Hydrocortisone 1% CREAM* 30 GM TUBE TOPICAL SCH ×2 (13:16→20:57)
[2018-08-24] MEDS: Torsemide TAB* 100 MG PO SCH (16:44)
[2018-08-24] MEDS: Torsemide TAB 10 MG PO SCH (16:44)
[2018-08-24] MEDS ORDERED: Torsemide TAB* 100 MG PO SCH (18:00)
[2018-08-24] MEDS ORDERED: Torsemide TAB 10 MG PO SCH (18:00)
[2018-08-24] MEDS: Insulin GLARGINE(*) 1 UNITS UNIT SUBCUT SCH (20:57)
[2018-08-25] MEDS: Levothyroxine TAB* 100 MCG TAB PO SCH (05:54)
[2018-08-25] MEDS: Levothyroxine TAB* 25 MCG TAB PO SCH (05:54)
[2018-08-25 06:30] LABS: ABS Basophils 0.1 10^3/ul (0-0.2); ABS Eosinophils 0.8 10^3/ul (0-0.6); ABS Lymphocytes 0.7 10^3/ul (1.0-4.8); ABS Monocytes 0.6 10^3/ul (0-0.8); ABS Neutrophils 5.1 10^3/ul (1.5-7.7); ABS Nucleated RBC 0 10^3/ul; Eosinophil % 11.5 %; Hematocrit 34 % (36-46); Hemoglobin 10.5 g/dL (14.0-18.0); Lymphocyte % 9.6 %; Mean Corpuscular HGB Conc 31 g/dL (31-36); Mean Corpuscular Hemoglobin 28 pg (27-31); Mean Corpuscular Volume 90 fL (80-94); Nucleated Red Blood Cells % 0; Platelet Count 254 10^3/uL (150-450); Red Blood Count 3.81 10^6 /uL (4.18-5.48); Red Cell Distribution Width 19 % (10.5-15); White Blood Count 7.3 10^3/uL (3.5-10.8)
[2018-08-25 06:37] LABS: BUN/Creatinine Ratio 44.5 (8-20); Calcium 9.5 mg/dL (8.6-10.3); EGFR African American 65.8 (>60); EGFR Non-African American 54.4 (>60); Potassium 4.7 mmol/L (3.5-5.0)
[2018-08-25] MEDS: Mometasone/Formoter 200/5 MDI INH SCH ×2 (07:06→20:41)
[2018-08-25] MEDS: Albuterol HFA INHALER* 8 gm MDI INH PRN (07:07)
[2018-08-25] MEDS: Atorvastatin* 40 MG TAB PO SCH (08:28)
[2018-08-25] MEDS: Cholecalciferol TAB* 400 UNIT PO SCH (08:28)
[2018-08-25] MEDS: Allopurinol TAB* 300 MG PO SCH (08:28)
[2018-08-25] MEDS: Hydrocortisone 1% CREAM* 30 GM TUBE TOPICAL SCH ×3 (08:28→20:51)
[2018-08-25] MEDS: Rivaroxaban TAB(*) 20 MG TAB PO SCH (08:28)
[2018-08-25] MEDS: Tamsulosin CAP* 0.4 MG PO SCH (08:29)
[2018-08-25] MEDS: Pantoprazole TAB * 40 MG TAB PO SCH (08:29)
[2018-08-25] MEDS: metFORMIN* 500 MG TAB PO SCH (08:29)
[2018-08-25] MEDS: Metoprolol Tartrate TAB* 25 MG PO SCH ×2 (08:29→20:50)
[2018-08-25] MEDS: Naproxen TAB* 250 MG PO PRN ×2 (09:38→19:40)
--- NOTE | 2018-08-25 09:55 | PN ---
Subjective Date of Service: 08/25/18 Interval History: Still some continuous chest discomfort. No new c/o. Family History: Findings - fibromyalgia, DM, heart disease in parents. Social History: Findings - Quit smoking over 20 yrs ago. No alcohol use. 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 Lives with his who is his SDM. 1 child. Past Medical History: Findings - MO, VENTURA, Afib, DM, DVT/PE, CKD, HL, hypothyroid , gout, PVD, HTN, L BKA Objective Active Medications: Acetaminophen (Tylenol Tab*) 975 mg PO Q6H PRN PRN Reason: FEVER/PAIN Albuterol (Ventolin Hfa Inhaler*) 1 puff INH Q4H PRN PRN Reason: SOB/WHEEZING Last Admin: 08/25/18 07:07 Dose: 1 puff Albuterol/Ipratropium (Duoneb (Albuterol 2.5 Mg/Ipratropium 0.5 Mg)) 1 neb INH Q4H PRN PRN Reason: SOB/WHEEZING Last Admin: 08/24/18 17:52 Dose: 1 neb Allopurinol (Zyloprim Tab*) 600 mg PO DAILY [facility] Last Admin: 08/25/18 08:28 Dose: 600 mg Atorvastatin Calcium (Lipitor*) 40 mg PO DAILY [facility] Last Admin: 08/25/18 08:28 Dose: 40 mg Cholecalciferol (Vitamin D Tab*) 400 unit PO DAILY [facility] Last Admin: 08/25/18 08:28 Dose: 400 unit Hydrocortisone (Hytone Cream 1%*) 1 applic TOPICAL TID [facility] Last Admin: 08/25/18 08:28 Dose: 1 applic Insulin Glargine (Lantus(*)) 50 units SUBCUT BEDTIME [facility] Last Admin: 08/24/18 20:57 Dose: 50 units Levothyroxine Sodium (Synthroid Tab*) 200 mcg PO DAILY@0600 [facility] Last Admin: 08/25/18 05:54 Dose: 200 mcg Levothyroxine Sodium (Synthroid Tab*) 25 mcg PO DAILY@0600 [facility] Last Admin: 08/25/18 05:54 Dose: 25 mcg Metformin HCl (Glucophage*) 500 mg PO DAILY WITH MEAL [facility] Last Admin: 08/25/18 08:29 Dose: 500 mg Metolazone (Zaroxolyn Tab*) 5 mg PO DAILY@1830 [facility] Last Admin: 08/24/18 16:50 Dose: Not Given Metoprolol Tartrate (Lopressor Tab*) 25 mg PO BID [facility] Last Admin: 08/25/18 08:29 Dose: 25 mg Mometasone Furoate/Formoterol Fumar (Dulera 200/5 Mdi*) 2 puff INH BID [facility]; Protocol Last Admin: 08/25/18 07:06 Dose: 2 puff Naproxen (Naprosyn Tab*) 250 mg PO Q8HR PRN PRN Reason: PAIN Last Admin: 08/25/18 09:38 Dose: 250 mg Pantoprazole Sodium (Protonix Tab*) 40 mg PO DAILY [facility]; Protocol Last Admin: 08/25/18 08:29 Dose: 40 mg Rivaroxaban (Xarelto(*)) 20 mg PO DAILY [facility] Last Admin: 08/25/18 08:28 Dose: 20 mg Sodium Chloride (Sodium Chloride 0.65% Nasal [place]*) 1 spray BOTH NARES Q4H PRN PRN Reason: CONGESTION Tamsulosin HCl (Flomax Cap*) 0.4 mg PO DAILY [facility] Last Admin: 08/25/18 08:29 Dose: 0.4 mg Torsemide (Demadex*) 100 mg PO Q24H [facility] Last Admin: 08/24/18 16:44 Dose: 100 mg Torsemide (Torsemide) 60 mg PO Q24H [facility] Last Admin: 08/24/18 16:44 Dose: 60 mg Torsemide (Demadex*) 160 mg PO ONCE ONE Stop: 08/25/18 09:47 Vital Signs - 8 hr 08/25/18 08/25/18 08/25/18 04:02 07:09 08:35 Temperature 97.2 F 97.8 F Pulse Rate 65 65 69 Respiratory 20 18 18 Rate Blood Pressure 142/54 127/58 (mmHg) O2 Sat by Pulse 94 95 98 Oximetry Oxygen Devices in Use Now: Nasal Cannula Appearance: Alert, partly up in bed. In fair spirits. Looks comfortable. Eyes: No Scleral Icterus Respiratory: Symmetrical Chest Expansion and Respiratory Effort, Clear to Auscultation, Clear to Percussion Cardiovascular: NL Sounds; No Murmurs; No JVD, RRR, No Edema, - Extremities: - - Massive body edema, R chest wall ? lipoma with much edema. Skin: No Nodules or Sclerosis, - - Rash L chest little change Neurological: Alert and Oriented x 3, NL Sensation Result Diagrams: 08/25/18 06:13 08/25/18 06:13 Assess/Plan/Problems-Billing Assessment: - Patient Problems (1) Acute on chronic diastolic (congestive) heart failure Current Visit: No Status: Acute Priority: High Code(s): I50.33 - ACUTE ON CHRONIC DIASTOLIC (CONGESTIVE) HEART FAILURE SNOMED Code(s): 101373542 Comment: Good diuresis with oral torsemide 160 mg plus metolazone 5 mg 08/24, to get daily at 6 PM. Extra torsemide 160 mg po without extra metolazone 08/25. BMP 08/26. (2) Hyperkalemia Current Visit: No Status: Acute Code(s): E87.5 - HYPERKALEMIA SNOMED Code( s): 59828445 Comment: Resolved. (3) VENTURA (obstructive sleep apnea) Current Visit: No Status: Acute Code(s): G47.33 - OBSTRUCTIVE SLEEP APNEA ( ADULT) (PEDIATRIC) SNOMED Code(s): 20681575 Comment: - Continue his own CPAP, uses O2 at 5 L at home. (4) Atrial fibrillation Current Visit: No Status: Chronic Code(s): I48.91 - UNSPECIFIED ATRIAL FIBRILLATION SNOMED Code(s): 98351812 Comment: - Continue metoprolol 25mg BID, rivaroxaban. (5) CKD (chronic kidney disease) stage 3, GFR 30-59 ml/min Current Visit: No Status: Chronic Code(s): N18.3 - CHRONIC KIDNEY DISEASE, STAGE 3 (MODERATE) SNOMED Code(s): 336927966 Comment: est GFR 56.7 08/23, 54.4 on 08/25. (6) Diabetes mellitus Current Visit: No Status: Chronic Code(s): E11.9 - TYPE 2 DIABETES MELLITUS WITHOUT COMPLICATIONS SNOMED Code(s): 94455945 Comment: Reduced Lantus dose from home dose, no mealtime insulin. FS QID with parameters. (7) Gout Current Visit: No Status: Chronic Code(s): M10.9 - GOUT, UNSPECIFIED SNOMED Code(s): 83096821 Comment: - Continue allopurinol 600mg daily (8) Hypothyroid Current Visit: No Status: Chronic Code(s): E03.9 - HYPOTHYROIDISM, UNSPECIFIED SNOMED Code(s): 38647123 Comment: - TSH wnl 08/23/18. - Continue levothryoxine (9) Morbid obesity Current Visit: No Status: Chronic Code(s): E66.01 - MORBID (SEVERE) OBESITY DUE TO EXCESS CALORIES SNOMED Code(s): 777375714 Comment: BMI 70.1 08/23/18.
[2018-08-25] MEDS: Albuterol/Ipratropium NEB.SOL* Albuterol 2.5 MG/Ipratropium 0.5 MG 3 ML INH PRN ×2 (10:37→17:56)
[2018-08-25] MEDS ORDERED: Metolazone TAB* 5 MG PO ONE (10:45)
[2018-08-25] MEDS ORDERED: Torsemide TAB 10 MG PO ONE (10:45)
[2018-08-25] MEDS ORDERED: Calcium Carbonate CHEW TAB* 500 MG (TUMS) PO PRN (13:19)
[2018-08-25] MEDS: Metolazone TAB* 5 MG PO SCH (17:32)
[2018-08-25] MEDS: Torsemide TAB 10 MG PO SCH (17:51)
[2018-08-25] MEDS: Torsemide TAB* 100 MG PO SCH (17:51)
[2018-08-25] MEDS: Insulin GLARGINE(*) 1 UNITS UNIT SUBCUT SCH (20:50)
[2018-08-26] MEDS: Levothyroxine TAB* 100 MCG TAB PO SCH (05:45)
[2018-08-26] MEDS: Levothyroxine TAB* 25 MCG TAB PO SCH (05:45)
[2018-08-26] MEDS: Albuterol/Ipratropium NEB.SOL* Albuterol 2.5 MG/Ipratropium 0.5 MG 3 ML INH PRN (08:08)
[2018-08-26] MEDS: Mometasone/Formoter 200/5 MDI INH SCH (08:09)
[2018-08-26 09:34] LABS: BUN/Creatinine Ratio 45.8 (8-20); Calcium 9.8 mg/dL (8.6-10.3); EGFR African American 69.3 (>60); EGFR Non-African American 57.2 (>60); Potassium 4.8 mmol/L (3.5-5.0)
[2018-08-26] MEDS: Tamsulosin CAP* 0.4 MG PO SCH (09:54)
[2018-08-26] MEDS: Atorvastatin* 40 MG TAB PO SCH (09:55)
[2018-08-26] MEDS: Allopurinol TAB* 300 MG PO SCH (09:55)
[2018-08-26] MEDS: Pantoprazole TAB * 40 MG TAB PO SCH (09:56)
[2018-08-26] MEDS: Rivaroxaban TAB(*) 20 MG TAB PO SCH (09:56)
[2018-08-26] MEDS: metFORMIN* 500 MG TAB PO SCH (09:57)
[2018-08-26] MEDS: Cholecalciferol TAB* 400 UNIT PO SCH (09:58)
[2018-08-26] MEDS: Metoprolol Tartrate TAB* 25 MG PO SCH (09:58)
[2018-08-26] MEDS: Hydrocortisone 1% CREAM* 30 GM TUBE TOPICAL SCH (10:01)
--- NOTE | 2018-08-26 10:14 | PN ---
Progress Note - Progress Note Date of Service: 08/26/18
--- NOTE | 2018-08-26 10:16 | PN ---
Progress Note - Progress Note Date of Service: 08/26/18 Note: Time spent on discharge including exam of patient, discussion with patient, , CM, nurse, non categorical preschool teacher, lab, retail pharmacist, review of EMR and preparation of discharge documents is 50 minutes.
[2018-08-26 12:28] VITALS: BP 147/56
--- NOTE | 2018-08-26 14:45 | DS ---
CC: Rahul Henderson, RPA-C* DISCHARGE SUMMARY: DATE OF ADMISSION: 08/23/18 DATE OF DISCHARGE: 08/26/18 HISTORY OF PRESENT ILLNESS/HOSPITAL COURSE: This 52-year-old man presented with worsening dyspnea on exertion and increasing total body edema. History and physical exam are detailed in the dictated admission note. He is really not able to weigh himself at home. His weight here is recorded as 516 pounds. His bed scale was not working and he did not have any subsequent any weights while here, although I am sure he lost quite a bit of weight based on his I's and O's. He may have lost about 25 pounds during this hospital stay. The patient was given some intravenous furosemide. He responded well to that. He was given oral torsemide and oral metolazone. He responded very well to large doses of oral torsemide combined with metolazone. He put out 9960 mL of urine the last full hospital day entirely from oral diuretics. I am cutting back his oral diuretic dose to avoid any further rapid diuresis. I note that on the day of discharge, his creatinine had improved from a value of 1.37 the day before to 1.31 on the day of discharge. His potassium is 4.8. His CO2 level did go up to 43, perhaps he is using more oxygen than he needs and is retaining CO2. He did use his CPAP from home every night in the hospital. At home, he runs it on 5 L of oxygen. I suspect he could do as well or better on a lower flow rate of oxygen at home. He says at times he uses no oxygen at home during the day. He has an oximeter and sometimes gets 92% during the day on room air. The patient was advised to seek out some way of getting himself weighed. [facility] can bring some type of portable scale to weigh him, but it would be advisable for him to be weighed once a week or more. Otherwise, possibly his sister could bring him in her van to some location where he could be weighed on a weekly basis. This will require a significant effort, but it may be worth to avoid future hospitalizations. The patient will have a BMP in 3 days after discharge. I would suggest he would probably need a BMP once a week for a while until a maintenance dose of diuretic can be found suitable for him. FINAL DIAGNOSES: 1. Acute on chronic diastolic congestive heart failure. 2. Chronic obstructive pulmonary disease. 3. Morbid obesity. 4. Diabetes. 5. Gout. 6. Hypothyroidism. 7. Chronic kidney disease. 8. Atrial fibrillation. 9. Obstructive sleep apnea. DISCHARGE MEDICATIONS: 1. Hydrocortisone 1% cream apply t.i.d. to red areas. 2. Metolazone 5 mg daily at 6:30 p.m. 3. Atorvastatin 40 mg daily. 4. Metoprolol tartrate 25 mg b.i.d. 5. Budesonide/formoterol 160/4.5 two puffs b.i.d. 6. Allopurinol 600 mg daily. 7. Albuterol inhaler 1 puff every 4 hours p.r.n. 8. Tamsulosin 0.4 mg daily. 9. Levothyroxine 225 mcg daily. 10. Metformin 500 mg daily with each meal. 11. Esomeprazole 20 mg daily. 12. Naproxen 220 mg every 8 hours p.r.n. 13. Saline nasal spray p.r.n. 14. Acetaminophen 1000 mg every 6 hours p.r.n. 15. Rivaroxaban 20 mg daily. 16. Multivitamin with minerals daily. 17. Vitamin D3 400 units daily. 18. Glargine insulin 65 units at bedtime. 19. Torsemide 80 mg daily at 6:30 p.m. CONDITION ON DISCHARGE: Improved. DISPOSITION ON DISCHARGE: Discharged home. [id number]/[facility] #: [id number] MTDD
== END 2018-08-26 14:45 | disposition home health service (06) | DRG 194 ==
LOC: ED 13:03 → MED 17:58
PROVIDERS: ADMIT Internal Medicine; ATTEND Internal Medicine
DX: I13.0 Hypertensive heart and chronic kidney disease with heart failure and stage 1 through stage 4 chronic kidney disease, or unspecified chronic kidney disease (principal); I50.33 Acute on chronic diastolic (congestive) heart failure; Z68.45 Body mass index [BMI] 70 or greater, adult; E11.22 Type 2 diabetes mellitus with diabetic chronic kidney disease; I48.91 Unspecified atrial fibrillation; E78.00 Pure hypercholesterolemia, unspecified; G47.33 Obstructive sleep apnea (adult) (pediatric); E03.9 Hypothyroidism, unspecified; E87.5 Hyperkalemia; N18.3 Chronic kidney disease, stage 3 (moderate); E78.5 Hyperlipidemia, unspecified; E11.51 Type 2 diabetes mellitus with diabetic peripheral angiopathy without gangrene; J44.9 Chronic obstructive pulmonary disease, unspecified; M19.90 Unspecified osteoarthritis, unspecified site; M10.9 Gout, unspecified; E66.01 Morbid (severe) obesity due to excess calories; I42.9 Cardiomyopathy, unspecified; Z86.718 Personal history of other venous thrombosis and embolism; Z88.8 Allergy status to other drugs, medicaments and biological substances; Z86.711 Personal history of pulmonary embolism; Z89.511 Acquired absence of right leg below knee; Z82.49 Family history of ischemic heart disease and other diseases of the circulatory system; Z83.3 Family history of diabetes mellitus; Z86.14 Personal history of Methicillin resistant Staphylococcus aureus infection; Z87.891 Personal history of nicotine dependence; Z79.4 Long term (current) use of insulin; Z79.1 Long term (current) use of non-steroidal anti-inflammatories (NSAID)
CPT/HCPCS: 36415; 71045; 80048; 80053; 83605; 83880; 84443; 84484; 85025; 85610; 93005; 94640; 99285; A9270-GY; J1940